=== PATIENT | female | born 1950 | race Caucasian/White ===

== ENCOUNTER 2017-10-25 11:30 | Outpatient (RCR) | payer BC, SELFPAY | END 2017-10-27 23:59 | LOC: NS 11:30 | PROVIDERS: Family Provider Physician Assistant; PCP Physician Assistant; Visit Provider Physician Assistant | DX: E11.69 Type 2 diabetes mellitus with other specified complication (principal); E66.9 Obesity, unspecified; Z68.42 Body mass index [BMI] 45.0-49.9, adult; Z71.3 Dietary counseling and surveillance | CPT/HCPCS: 97803 ==

== ENCOUNTER 2017-11-22 13:34 | Outpatient (RCR) | payer BC, SELFPAY | END 2017-11-24 23:59 | LOC: NS 13:34 | PROVIDERS: Family Provider Physician Assistant; PCP Physician Assistant; Visit Provider Physician Assistant | DX: E11.69 Type 2 diabetes mellitus with other specified complication (principal); E66.9 Obesity, unspecified; Z68.42 Body mass index [BMI] 45.0-49.9, adult; Z71.3 Dietary counseling and surveillance | CPT/HCPCS: 97803 ==

== ENCOUNTER 2017-12-20 12:00 | Outpatient (RCR) | payer BC, SELFPAY | END 2017-12-25 23:59 | LOC: NS 12:00 | PROVIDERS: Family Provider Physician Assistant; PCP Physician Assistant; Visit Provider Physician Assistant | DX: E11.69 Type 2 diabetes mellitus with other specified complication (principal); E66.9 Obesity, unspecified; Z68.42 Body mass index [BMI] 45.0-49.9, adult; Z71.3 Dietary counseling and surveillance | CPT/HCPCS: 97803 ==

== ENCOUNTER 2018-01-17 11:45 | Outpatient (RCR) | payer BC, SELFPAY | END 2018-01-24 23:59 | LOC: NS 11:45 | PROVIDERS: Family Provider Physician Assistant; PCP Physician Assistant; Visit Provider Physician Assistant | DX: E11.69 Type 2 diabetes mellitus with other specified complication (principal); E66.9 Obesity, unspecified; Z68.42 Body mass index [BMI] 45.0-49.9, adult; Z71.3 Dietary counseling and surveillance | CPT/HCPCS: 97803 ==

== ENCOUNTER 2018-01-31 11:51 | Outpatient (RCR) | payer BC, SELFPAY | END 2018-02-02 09:29 | disposition home or self-care (01) | LOC: NS 11:51 | PROVIDERS: Family Provider Physician Assistant; PCP Physician Assistant; Visit Provider Physician Assistant | DX: E11.69 Type 2 diabetes mellitus with other specified complication (principal); E66.9 Obesity, unspecified; Z68.42 Body mass index [BMI] 45.0-49.9, adult; Z71.3 Dietary counseling and surveillance ==

== ENCOUNTER 2018-02-14 11:50 | Outpatient (RCR) | payer BC, SELFPAY | END 2018-02-14 11:51 | LOC: NS 11:50 | PROVIDERS: Family Provider Physician Assistant; PCP Physician Assistant; Visit Provider Physician Assistant | DX: E11.69 Type 2 diabetes mellitus with other specified complication (principal); E66.9 Obesity, unspecified; Z68.42 Body mass index [BMI] 45.0-49.9, adult; Z71.3 Dietary counseling and surveillance | CPT/HCPCS: 97802 ==

== ENCOUNTER 2020-04-12 09:06 | Emergency (ER) | payer BC, MEDICARE, SELFPAY ==
[2020-04-12 09:07] VITALS: BP 194/75; PULSE 74; RESP 18; TEMP 35.9; O2SAT 96; BMI 46.9
--- NOTE | 2020-04-12 09:32 | CT_ITS ---
STUDY: CT ABDOMEN AND PELVIS WITHOUT CONTRAST REASON FOR EXAM: Female, 69 years old. LOW ABD PAIN/RT CALF SWELLING/INCREASING SOB. Hx of CABG, Afib, HTN, HLD and hypothyroid RADIATION DOSAGE (If Supplied By Facility): CTDIvol = ( 22.82 ) mGy, DLP = ( 1191.35 ) mGycm TECHNIQUE: Transaxial images were obtained from the dome of the diaphragm to the symphysis pubis without oral contrast, and without intravenous contrast. Sagittal and coronal images were reconstructed. Individualized dose optimization techniques were used for this CT. COMPARISON: None. FINDINGS: There is a 1.1 some minimal left in the medial aspect of the right lower lobe. Minimal scarring in the lingular segment of the left upper. Coronary artery calcifications. Normal liver. The gallbladder is not visualized most likely secondary to prior cholecystectomy. Normal spleen. There is diffuse atrophy of the pancreas. Normal bilateral adrenal glands. Normal right kidney. Normal left kidney. There is a small hiatal hernia. Normal small intestine. Normal colon. The appendix is visualized and appears normal. There is diffuse atherosclerotic calcification of the abdominal aorta and major visceral branches, without a demonstrated aneurysm. Normal inferior vena cava. Normal retroperitoneum. Normal urinary bladder. There is a small umbilical hernia containing fat. There is a 6 cm x 1.9 cm soft tissue density in the subcutaneous fat in the right lateral anterior abdominal wall. This may represent either subcutaneous edema from injury or possible subcutaneous injection of medication. There are diffuse degenerative changes of the visualized lumbar spine. Dextroscoliosis. CT/Abdomen/Pelvis without Cont IMPRESSION: Findings suggestive of a prior cholecystectomy. Soft tissue density in the subcutaneous fat in the right lateral anterior abdominal wall as described. Electronically Signed: Ian Buchanan, at 10:49 EDT , Service support ,
--- NOTE | 2020-04-12 09:36 | EKG12_ITS ---
Test Reason : EDEMA Blood Pressure : / mmHG Vent. Rate : 070 BPM Atrial Rate : 070 BPM P-R Int : 190 ms QRS Dur : 080 ms QT Int : 434 ms P-R-T Axes : 065 001 082 degrees QTc Int : 468 ms Sinus rhythm with occasional Premature ventricular complexes Nonspecific ST abnormality Abnormal ECG Confirmed by RJ MARINELLI, BERYL ([id number]), editor index ANITA LOYD ([id number]) on 04/16/2020 9:18:58 AM Referred By: CONG Confirmed By:BERYL DE LA ROSA MD
[2020-04-12 09:41] LABS: Bacteria 0 SEEN /hpf (None Seen); Mucous, Urine 0 SEEN /hpf (<or=2+); Red Blood Cells-Urine 0 SEEN /hpf (0-5); Squamous Epithelial Cells - UA 0 SEEN /hpf (5-10)
[2020-04-12 09:43] LABS: Color, Urine Yellow (Yellow); Glucose, Dipstick 1000 mg/dl (Normal); Ketone-Dipstick 5 mg/dl (Negative); Leukocyte Esterase-Dipstick 500 /ul (Negative); Nitrite-Dipstick Negative (Negative); Occult Blood-Urine 250 /ul (Negative); Protein-Dipstick 100 mg/dl (Negative); Urine Bilirubin Dipstick Negative (Negative); Urine Clarity Sl. Cloudy (Clear); Urine Urobilinogen Normal (Normal); Urine pH 6.5 (5.0 - 8.0)
[2020-04-12] MEDS: Acetaminophen 500 MG Tablet 1000 MG PO (09:47)
[2020-04-12] MEDS: 0.9% Normal Saline 1,000 ML 125 ML IV (09:48)
[2020-04-12 09:57] LABS: Absolute Lymphocyte Count 0.75 X10^3/uL (0.83-4.51); Absolute Neutrophil Count 12.6 X10^3/uL (2.0-7.7); Basophil# 0.04 X10^3/uL; Basophil% 0.3 % (0-1); Eosinophil# 0.15 X10^3/uL; Hematocrit 30.9 % (37-47); Hemoglobin 9.7 g/dL (12.0-15.0); Lymphocyte # 0.75 X10^3/ul (4.0); Lymphocyte % 5.1 % (19-41); Mean Corp Hgb Conc 31.4 g/dL (32-36); Mean Corpuscular Hgb 27.8 pg (27.0-32.0); Mean Corpuscular Volume 88.5 fL (81-99); Mean Platelet Vol. 11.5 fl (6.2-12.0); Monocyte# 1.19 X10^3/uL; NRBC Flagged by Analyzer 0 % (0-5); Neutrophil # 12.55 X10^3/uL (2.7-7.7); Neutrophil % 84.9 % (47-70); POSITIVE MORPHOLOGY YES; Platelet Count 268 K/mm3 (150-450); RBC Distribution Width CV 13.6 % (11.6-14.6); Red Blood Count 3.49 M/mm3 (4.2-5.4); White Blood Count 14.8 K/mm3 (4.4-11.0)
[2020-04-12 09:58] LABS: Differential Indicated SCAN CRITERIA MET
--- NOTE | 2020-04-12 10:07 | ED.VISSUMM ---
- ER Visit Summary Date of Service: 04/12/20 Chief Complaint: Abdominal pain History of Present Illness: The patient is a 69 F who sees Maggi Moreno. Patient reports that she has lower abdominal pain that began 2 days ago. Is a dull, aching pain Zeta 10 or central 10 currently. Is worsened by nothing relieved by nothing. She has frequent urination that began yesterday. She is had chills, but denies fever. She has had nausea, but no vomiting or diarrhea. Her last bowel movement yesterday. No mild hematochezia. Patient reports that last week her right leg was swollen, but that is now resolved. She now has swelling of her right labia majora over the past 2 days and she reports that this is moderately painful. Physical Examination: Vitals: Stable. Afebrile. General: Well-nourished and well-developed. Head: Normocephalic atraumatic. Neck: Supple, no lymphadenopathy. No JVD. Nontender. Cardiovascular: Regular rate and rhythm. No murmurs. Respiratory: No respiratory distress. Clear to auscultation bilaterally. Abdominal: Soft, mild suprapubic tenderness to palpation, nondistended, normal bowel sounds. No guarding, rebound, or peritoneal signs. : External exam does show that she has moderate swelling of her right labia majora. There is erythema. However, there is no induration or fluctuance. There is no Bartholin's gland cyst. Back: Nontender. Extremities: Nontender, 2+ pitting edema lower extremities bilaterally. Skin: Normal color, no rash. Neurologic: Alert and oriented ?3. Cranial nerves II through XII are intact. Normal strength and sensation. Psych: Normal affect. Test Results: EKG is sinus at [address] changes and PVCs. CBC shows a white count of 14.8 with 85 segmented neutrophils and 5 lymphocytes. H&H is 9.7 and 30.9. Lactic acid is 1.9. Chem-7 shows a sodium 133, glucose 350, BUN 20, creatinine 1.35. LFTs show total bili 1.3. UA shows greater than 100 white blood cells, but no bacteria. Troponin is negative. Clinical Impression(s) from Imaging Studies Abdomen/Pelvis CT 04/12/20 09:32 IMPRESSION: Findings suggestive of a prior cholecystectomy. Soft tissue density in the subcutaneous fat in the right lateral anterior abdominal wall as described. Electronically Signed: Ian Buchanan, at 10:49 EDT , Service support , Emergency Department Course and Treatment: Patient had an IV placed. She was given Tylenol p.o. and is resting comfortably. Patient's urine was sent for culture. She is given a dose of Rocephin IV. She was discussed with Dr. Arzate regarding the swelling of the right labia majora. Is felt that this could be cellulitic or potentially yeast and she was given Diflucan p.o. Following return of the CAT scan I did look for this area of swelling right upper abdomen and there is no erythema or warmth. Is nontender. The patient is on insulin and Xarelto. I suspect that this is an injection site that shown up on the CT. The patient feels well and would like to go home. Treatment Plan: Patient will be discharged on Keflex and Diflucan. She is instructed take the Diflucan every 3 days. Follow-up with her primary care physician in 3 to 5 days for another exam. Follow-up with Dr. Arzate in 1 week for another exam. Return to the emergency department for any worsening symptoms. Disposition: To home in improved and stable condition. Impression: 1. UTI. 2. Right labia majora swelling. This note was generated with [employer] dictation software. It may contain incorrect words, spelling, and punctuation that were not noted in review of the chart prior to signing ED Disposition - Plan for ED Patient: Instructions: ED WILMER VAGINITIS, Understanding Urinary Tract Infections (UTIs) Prescriptions: Fluconazole [Diflucan] 150 mg PO UD #3 tablet Cephalexin [Keflex] 500 mg PO Q12 #14 capsule Referrals: Maggi Chicas DO [Primary Care Provider] - 3-5 Days Remington Arzate MD [STAFF PHYSICIAN] - 1-2 Weeks
[2020-04-12 10:15] LABS: White Blood Cells >100 SEEN /hpf (0-5)
[2020-04-12 10:19] LABS: ALB/GLOB Ratio 0.8 RATIO (0.9-2.4); AST(SGOT) 17 U/L (15-37); Alanine Aminotransfer ALT/SGPT 17 U/L (13-56); Albumin, Serum 3.3 g/dL (3.2-5.0); Alkaline Phosphatase 61 U/L (45-117); Anion Gap 10 (5-15); BUN 20 mg/dL (7-18); BUN/Creat Ratio 14.8 RATIO (10-20); Calcium,Total 8.7 mg/dL (8.5-10.1); Chloride 102 mmol/L (98-107); Creatinine, Serum 1.35 mg/dL (0.55-1.02); EST Glomerular Filtration Rate 41 mL/min (>60); Est Glom Filt Rate - Afr Amer 50 mL/min (>60); Glucose 350 mg/dL (74-106); Potassium 3.9 mmol/L (3.5-5.1); Protein, Total 7.3 g/dL (6.4-8.2); Sodium Level 133 mmol/L (136-145)
[2020-04-12 10:21] LABS: Lactic Acid 1.9 mmol/L (0.4-1.9)
[2020-04-12 10:24] LABS: Hypochromasia 1+; Platelet Estimate ADEQUATE (ADEQ)
[2020-04-12 10:25] LABS: Differential Comment SCANNED
[2020-04-12 10:51] LABS: BNP,B-Type NATRIURETIC PEPTIDE 543.7 pg/mL (0-100)
[2020-04-12] MEDS: Ceftriaxone 1 GM/50 ML BAG IV (10:57)
[2020-04-12] MEDS: Fluconazole 100 MG Tablet 150 MG PO (11:51)
[2020-04-12 11:57] VITALS: BP 138/60; PULSE 63; RESP 16; O2SAT 97
== END 2020-04-12 11:57 | disposition home or self-care (01) ==
PROVIDERS: Emergency Provider Emergency Medicine
DX: N39.0 Urinary tract infection, site not specified (principal); M79.89 Other specified soft tissue disorders; E03.9 Hypothyroidism, unspecified; E78.5 Hyperlipidemia, unspecified; I10 Essential (primary) hypertension; I48.91 Unspecified atrial fibrillation; Z95.1 Presence of aortocoronary bypass graft; Z90.49 Acquired absence of other specified parts of digestive tract
CPT/HCPCS: 74176; 80053; 81001; 83605; 83880; 84484; 85025; 87040; 87086; 87088; 87186; 93005; 99283; J7030; A4216

== ENCOUNTER 2020-04-17 20:11 | Emergency (ER) | payer BC, MEDICARE, SELFPAY ==
[2020-04-17 20:12] VITALS: BP 128/61; PULSE 68; RESP 16; TEMP 36.6; O2SAT 96; BMI 45.0
--- NOTE | 2020-04-17 20:49 | CT_ITS ---
We are attempting to reach an attending provider to discuss findings. An addendum with communication details will be sent when the communication is complete. STUDY: CT ABDOMEN AND PELVIS WITH CONTRAST REASON FOR EXAM: Female, 69 years old. Pelvic pain RADIATION DOSAGE (If Supplied By Facility): CTDIvol = ( 18.67 ) mGy, DLP = ( 1730.50 ) mGycm TECHNIQUE: Transaxial images were obtained from the dome of the diaphragm to the symphysis pubis without oral contrast. 100 ml of Isovue-300 contrast was administered. Sagittal and coronal images were reconstructed. Individualized dose optimization techniques were used for this CT. COMPARISON: 04/12/2020 FINDINGS: The visualized lung bases are clear. The visualized portions of the heart and pericardium are within normal limits. There are no calcified gallstones present. The liver is low in density, consistent with fatty infiltration. The spleen is normal in size. The pancreas is within normal limits. The adrenal glands are within normal limits. There are no renal or ureteral stones. There is no hydronephrosis. There are no focal renal lesions. Normal visualized stomach. There is no bowel obstruction or inflammation. The appendix is visualized and appears normal. The aorta is normal in caliber. Again noted are atherosclerotic calcifications in the aorta. There is no abdominal or pelvic free air, free fluid, fluid collection or lymphadenopathy. There are no destructive osseous lesions. There is a stable 6 x 2 cm soft tissue density in the subcutaneous fat of the right lower quadrant anterior abdominal wall which may represent a subcutaneous hematoma. There is new fat stranding in the lower anterior abdominal wall extending to the mons pubis. This is consistent with cellulitis. There are small foci of air within the soft tissues of the perineum and right upper inner thigh, worrisome for fasciitis. CT/Abdomen/Pelvis W IV Cont ONLY IMPRESSION: Stable 6 x 2 cm soft tissue density in the subcutaneous fat of the right lower quadrant anterior abdominal wall which may represent a subcutaneous hematoma. New fat stranding in the lower anterior abdominal wall extending to the mons pubis, consistent with cellulitis. Small foci of air within the soft tissues of the perineum and right upper inner thigh, worrisome for fasciitis. No bowel obstruction or inflammation. Normal appendix. Normal kidneys. No hydronephrosis. Fatty liver. Electronically Signed: Tayo Lopes, at 21:58 EDT Tel , Service support ,
[2020-04-17] MEDS: Ondansetron 4 MG/2 ML Vial IM (20:52)
[2020-04-17] MEDS: Morphine 4 MG/ML Syringe IV (20:52)
--- NOTE | 2020-04-17 20:53 | ED.VIS.GEN ---
History of Present Illness Chief Complaint: Complaint Narrative: 69-year-old female presenting with painful swelling of her labia and her lower stomach. She states she was seen recently diagnosed with UTI as well as yeast infection. She has been taking her medications but it has not gotten better. She has swelling of her bilateral labia as well as swelling of the lower abdominal wall it is erythematous and warm. She is tender to touch. She states it is exquisitely painful. Does also state that her blood sugars have been running high for a while. She states that used to be under control but she has not been checking recently. Because she is out of equipment. Past Medical History - Allergies and Home Meds Allergies/Adverse Reactions: Allergies hydralazine HCl [From Apresoline] Allergy (Verified 04/17/20 20:15) Other numbness to face Primary Care Physician: Maggi Chicas DO [Primary Care Provider] - Prior records reviewed: Yes Surgical History: cholecystectomy, coronary bypass surgery, hysterectomy, - Lives: Alone Smoking Status: Current every day smoker Alcohol: None Drugs: None - Family History Maternal Family History: Reports: Diabetes, Heart Disease Paternal Family History: Reports: Heart Disease Sibling Family History: Reports: Diabetes Review of Systems General: Denies: Chills, Fever Eyes: Denies: Visual changes - bilaterally, Diplopia ENT: Denies: Rhinorrhea, Sore throat Cardiovascular: Denies: Chest pain, Palpitations Respiratory: Denies: Dyspnea, Cough, Dyspnea on exertion Gastrointestinal: Reports: Abdominal pain Genitourinary: Reports: Dysuria, - - Swelling of the labia bilaterally as well as swelling of the external pelvic area. Skin: Reports: Rash - In the pelvic area as well as the labia Neurological: Reports: Headache Hematologic: Denies: Easy bruising, Easy bleeding Physical Exam Vital Signs/Narrative: Vital Signs Temp Pulse Resp BP Pulse Ox 04/17/20 20:12 97.9 F 68 16 128/61 H 96 General: Obese, - - Tearful Head: Normocephalic, Atraumatic Eyes: Perrl ENT: Moist mucous membranes Cardiovascular: Regular rate, Regular rhythm Respiratory: No distress, CTA bilaterally Abdomen: - - Tenderness to palpation around the pelvic region as well as the bilateral labia. There is erythema surrounding this area. : - - Severe swelling and tenderness to palpation around the pelvic region as well as the bilateral labia. There is erythema warmth surrounding this area. There is no crepitance palpated. Extremities: Nontender Skin: No rash - As described above Neurological: Alert, Oriented x3 Psychological: Normal affect Diagnostic/Tx/Re-eval Clinical Impression(s) from Imaging Studies Abdomen/Pelvis CT 04/17/20 20:49 IMPRESSION: Stable 6 x 2 cm soft tissue density in the subcutaneous fat of the right lower quadrant anterior abdominal wall which may represent a subcutaneous hematoma. New fat stranding in the lower anterior abdominal wall extending to the mons pubis, consistent with cellulitis. Small foci of air within the soft tissues of the perineum and right upper inner thigh, worrisome for fasciitis. No bowel obstruction or inflammation. Normal appendix. Normal kidneys. No hydronephrosis. Fatty liver. Electronically Signed: Tayo Lpoes, at 21:58 EDT Tel , Service support , ADDENDUM: 04/17/208 IMPRESSION: Stable 6 x 2 cm soft tissue density in the subcutaneous fat of the right lower quadrant anterior abdominal wall which may represent a subcutaneous hematoma. New fat stranding in the lower anterior abdominal wall extending to the mons pubis, consistent with cellulitis. Small foci of air within the soft tissues of the perineum and right upper inner thigh, worrisome for fasciitis. No bowel obstruction or inflammation. Normal appendix. Normal kidneys. No hydronephrosis. Fatty liver. N.B. : The above information has been verbally conveyed by Tayo Lopes to Vernon Saha DO on 04/17/2020 22:21:13 (ET). Electronically Signed: Tayo Lopes, at 21:58 EDT Tel , Service support , Laboratory Data 04/17/20 04/17/20 04/17/20 20:59 21:00 21:00 WBC 27.5 H RBC 3.55 L Hgb 9.7 L Hct 31.0 L MCV 87.3 MCH 27.3 MCHC 31.3 L RDW Std Deviation 46.6 H RDW Coeff of Kevyn 14.5 Plt Count 420 MPV 11.8 Immature Gran % (Auto) 2.200 H Neut % (Auto) 91.3 H Lymph % (Auto) 3.1 L [place] % (Auto) 2.9 Eos % (Auto) 0.3 Baso % (Auto) 0.2 Absolute Neuts (auto) 25.1 H Absolute Lymphs (auto) 0.84 Nucleated RBC % 0 Differential Comment Platelet Estimate ADEQUATE RBC Morphology NORM C+C PT INR Sodium 121 L Potassium 3.8 Chloride 85 L Carbon Dioxide 25.0 Anion Gap 11 BUN 43 H Creatinine 2.52 H Estim Creat Clear Calc 22.02 Est GFR (MDRD) Af Amer 24 L Est GFR (MDRD) Non-Af 20 L BUN/Creatinine Ratio 17.1 Glucose 695 H* Lactic Acid Calcium 8.3 L Urine Color Urine Clarity Urine pH Ur Specific [place] Urine Protein Urine Glucose (UA) Urine Ketones Urine Occult Blood Urine Nitrite Urine Bilirubin Urine Urobilinogen Ur Leukocyte Esterase Urine RBC Urine WBC Ur Squamous Epith Cells Urine Bacteria Urine Mucus POC Glucose > 500 H* 04/17/20 04/17/20 04/17/20 21:12 21:17 21:45 WBC RBC Hgb Hct MCV MCH MCHC RDW Std Deviation RDW Coeff of Kevyn Plt Count MPV Immature Gran % (Auto) Neut % (Auto) Lymph % (Auto) [place] % (Auto) Eos % (Auto) Baso % (Auto) Absolute Neuts (auto) Absolute Lymphs (auto) Nucleated RBC % Differential Comment Platelet Estimate RBC Morphology PT 18.3 H INR 1.6 Sodium Potassium Chloride Carbon Dioxide Anion Gap BUN Creatinine Estim Creat Clear Calc Est GFR (MDRD) Af Amer Est GFR (MDRD) Non-Af BUN/Creatinine Ratio Glucose Lactic Acid 2.5 H* Calcium Urine Color Yellow Urine Clarity Clear Urine pH 5.0 Ur Specific [place] 1.010 Urine Protein Negative Urine Glucose (UA) 1000 H Urine Ketones Negative Urine Occult Blood Negative Urine Nitrite Negative Urine Bilirubin Negative Urine Urobilinogen Normal Ur Leukocyte Esterase Negative Urine RBC 0 SEEN Urine WBC 0 SEEN Ur Squamous Epith Cells 0 SEEN Urine Bacteria 0 SEEN Urine Mucus 0 SEEN POC Glucose 04/17/20 04/18/20 23:16 00:01 WBC RBC Hgb Hct MCV MCH MCHC RDW Std Deviation RDW Coeff of Kevyn Plt Count MPV Immature Gran % (Auto) Neut % (Auto) Lymph % (Auto) [place] % (Auto) Eos % (Auto) Baso % (Auto) Absolute Neuts (auto) Absolute Lymphs (auto) Nucleated RBC % Differential Comment Platelet Estimate RBC Morphology PT INR Sodium Potassium Chloride Carbon Dioxide Anion Gap BUN Creatinine Estim Creat Clear Calc Est GFR (MDRD) Af Amer Est GFR (MDRD) Non-Af BUN/Creatinine Ratio Glucose Lactic Acid Calcium Urine Color Urine Clarity Urine pH Ur Specific [place] Urine Protein Urine Glucose (UA) Urine Ketones Urine Occult Blood Urine Nitrite Urine Bilirubin Urine Urobilinogen Ur Leukocyte Esterase Urine RBC Urine WBC Ur Squamous Epith Cells Urine Bacteria Urine Mucus POC Glucose > 500 H* 500 H* - Medical Decision Making Was seen and evaluated on arrival for severe pain and swelling and infection of the genital region. She is an insulin-dependent diabetic. She states this is worsened since her previous visit and she is having trouble even moving due to the pain and swelling. She has been taking her antibiotics without improvement. 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 She was taken immediately to CT and I did review her previous blood work and her GFR was sufficient however after she had her CT today her new GFR was lower. I did give her IV fluids, given the emergent nature of the need for CT I feel this is outweighs the concern for contrast-induced nephropathy. Patient's lab work shows a leukocytosis of 27,000, lactic acid of 2.5. Creatinine was also 2.[address] results show concern for Selwyn's gangrene/necrotizing fasciitis. She had already been given vancomycin, Zosyn, Cleocin. She has been cultured. She was given 2.5 L of IV fluids. Her heart rate and blood pressure remained stable. She is afebrile. After receiving the CT results I did discuss this with [facility] where she wanted to go. I initially spoke to the resident who called back and stated that they would accept her after the COVID swab is performed and test is back and negative. I also did speak to the ICU attending who was concerned that going to a regular ICU not a surgical ICU. At that point he stated that he would make arrangements for the surgical ICU. Patient was eventually accepted but is pending transfer once her COVID swab test is resulted. She did have hyperglycemia and was started on a insulin drip in the ED to help control her blood sugars. She has slowly come down from 650-500. I do not believe that time she needs pressors. Will be immediately transferred to [facility] as soon as her COVID follow-up results. Impression: #1 Selwyn's gangrene #2 Severe sepsis #3 leukocytosis #4 Acute kidney injury #5 Hyperglycemia #6 Lactic acidosis - Critical Care Time Critical care time (excluding procedures): 75-104 minutes, Discussing w/Patient &/or Family/Driver Merchandiser, Discussing w/Consultants, Arranging Admission or Transfer, Performing Direct Patient Care at Bedside - Managing insulin drip. ED Disposition - Plan for ED Patient: Referrals: Maggi Chicas DO [Primary Care Provider] -
[2020-04-17] MEDS: 0.9% Normal Saline 1,000 ML 1000 ML IV (21:01)
[2020-04-17 21:02] VITALS: BP 121/66; PULSE 104; RESP 18; TEMP 37.1; O2SAT 95
[2020-04-17 21:06] LABS: Bedside Glucose > 500 mg/dL (70-110)
[2020-04-17 21:07] LABS: Absolute Lymphocyte Count 0.84 X10^3/uL (0.83-4.51); Absolute Neutrophil Count 25.1 X10^3/uL (2.0-7.7); Basophil# 0.05 X10^3/uL; Basophil% 0.2 % (0-1); Eosinophil# 0.07 X10^3/uL; Eosinophils% 0.3 % (0-5); Hemoglobin 9.7 g/dL (12.0-15.0); Lymphocyte # 0.84 X10^3/ul (4.0); Lymphocyte % 3.1 % (19-41); Mean Corp Hgb Conc 31.3 g/dL (32-36); Mean Corpuscular Hgb 27.3 pg (27.0-32.0); Mean Corpuscular Volume 87.3 fL (81-99); Mean Platelet Vol. 11.8 fl (6.2-12.0); Monocyte% 2.9 % (0-10); NRBC Flagged by Analyzer 0 % (0-5); Neutrophil # 25.11 X10^3/uL (2.7-7.7); Neutrophil % 91.3 % (47-70); POSITIVE DIFFERENTIAL YES; POSITIVE MORPHOLOGY YES; Platelet Count 420 K/mm3 (150-450); RBC Distribution Width CV 14.5 % (11.6-14.6); RBC Distribution Width SD 46.6 fl (35.1-43.9); Red Blood Count 3.55 M/mm3 (4.2-5.4); White Blood Count 27.5 K/mm3 (4.4-11.0)
[2020-04-17 21:30] LABS: Differential Indicated SCAN CRITERIA MET; Platelet Estimate ADEQUATE (ADEQ); Red Cell Morphology NORM C+C NORMAL (NORM C&C)
[2020-04-17 21:31] LABS: Anion Gap 11 (5-15); BUN 43 mg/dL (7-18); BUN/Creat Ratio 17.1 RATIO (10-20); Calcium,Total 8.3 mg/dL (8.5-10.1); Chloride 85 mmol/L (98-107); Creatinine, Serum 2.52 mg/dL (0.55-1.02); EST Glomerular Filtration Rate 20 mL/min (>60); Est Glom Filt Rate - Afr Amer 24 mL/min (>60); Estimated Creatinine Clearance 22.02 ml/min; Glucose 695 mg/dL (74-106); Potassium 3.8 mmol/L (3.5-5.1); Sodium Level 121 mmol/L (136-145)
--- NOTE | 2020-04-17 21:31 | ED.RN ---
BGL [address] FLORES[address] ACKNOWLEDGES RESULT
[2020-04-17 21:53] LABS: International Normalized Ratio 1.6; Prothrombin Time (Protime)PT. 18.3 SECONDS (11.7-14.9)
[2020-04-17 21:56] LABS: Bacteria 0 SEEN /hpf (None Seen); Mucous, Urine 0 SEEN /hpf (<or=2+); Red Blood Cells-Urine 0 SEEN /hpf (0-5); Squamous Epithelial Cells - UA 0 SEEN /hpf (5-10); White Blood Cells 0 SEEN /hpf (0-5)
[2020-04-17 22:02] LABS: Color, Urine Yellow (Yellow); Glucose, Dipstick 1000 mg/dl (Normal); Ketone-Dipstick Negative (Negative); Leukocyte Esterase-Dipstick Negative /ul (Negative); Nitrite-Dipstick Negative (Negative); Occult Blood-Urine Negative /ul (Negative); Protein-Dipstick Negative (Negative); Urine Bilirubin Dipstick Negative (Negative); Urine Clarity Clear (Clear); Urine Urobilinogen Normal (Normal)
[2020-04-17 22:08] VITALS: BP 120/57; PULSE 98; RESP 18; TEMP 37.1; O2SAT 98
--- NOTE | 2020-04-17 22:08 | ED.RN ---
LACTIC 2.5 REPORTED TO . VERBALIZES UNDERSTANDING
[2020-04-17 22:09] LABS: Lactic Acid 2.5 mmol/L (0.4-1.9)
[2020-04-17 23:08] VITALS: BP 113/60; PULSE 92; RESP 18; TEMP 37.1; O2SAT 98
[2020-04-17 23:25] LABS: Bedside Glucose > 500 mg/dL (70-110)
[2020-04-18 00:01] VITALS: BP 114/52; PULSE 81; RESP 16; TEMP 36.9; O2SAT 97
[2020-04-18 00:06] LABS: Bedside Glucose 500 mg/dL (70-110)
[2020-04-18 01:00] VITALS: BP 99/59; PULSE 97; RESP 14; TEMP 36.9; O2SAT 98
[2020-04-18 01:21] LABS: Bedside Glucose 427 mg/dL (70-110)
[2020-04-18 01:22] LABS: Reflex Lactate? Y
[2020-04-18 02:00] VITALS: BP 114/64; PULSE 92; RESP 16; TEMP 36.6; O2SAT 96
[2020-04-18 02:16] LABS: Bedside Glucose 373 mg/dL (70-110)
[2020-04-18 02:29] LABS: Lactic Acid 2.5 mmol/L (0.4-1.9)
== END 2020-04-18 02:43 | disposition short-term general hospital (02) ==
PROVIDERS: Emergency Provider Student in an Organized Health Care Education/Training Program
DX: A41.9 Sepsis, unspecified organism (principal); N76.89 Other specified inflammation of vagina and vulva; N39.0 Urinary tract infection, site not specified; R65.20 Severe sepsis without septic shock; N17.9 Acute kidney failure, unspecified; E87.2 Acidosis; E11.65 Type 2 diabetes mellitus with hyperglycemia; Z79.4 Long term (current) use of insulin; Z82.49 Family history of ischemic heart disease and other diseases of the circulatory system; Z90.49 Acquired absence of other specified parts of digestive tract; Z90.710 Acquired absence of both cervix and uterus; K76.0 Fatty (change of) liver, not elsewhere classified; F17.200 Nicotine dependence, unspecified, uncomplicated; E66.9 Obesity, unspecified
CPT/HCPCS: 51702; 74177; 80048; 81001; 82962; 83605; 85025; 85610; 87040; 87086; 87635; 96361; 96365; 96366; 96367; 96372; 96375; 99285; G2023; J7030; J7040; Q9967; A4216; J2405; U0003

== ENCOUNTER → 2020-11-05 15:43 | Outpatient (CLI) | payer MEDICARE, SELFPAY | PROVIDERS: Referring Provider Nurse Practitioner Adult Health; Visit Provider Nurse Practitioner Adult Health | DX: N30.21 Other chronic cystitis with hematuria (principal) | CPT/HCPCS: 87077; 87086; 87088; 87186 ==

== ENCOUNTER → 2021-02-25 13:59 | Outpatient (CLI) | payer MEDICARE, SELFPAY ==
--- NOTE | 2021-02-25 09:21 | EKG12_ITS ---
Test Reason : PRE-OP Blood Pressure : / mmHG Vent. Rate : 052 BPM Atrial Rate : 056 BPM P-R Int : 000 ms QRS Dur : 092 ms QT Int : 480 ms P-R-T Axes : 000 -12 074 degrees QTc Int : 446 ms Junctional rhythm Poor R wave progression Abnormal ECG Confirmed by HUE MARINELLI, AL ([id number]), purchase request editor ANITA LOYD ([id number]) on 02/26/2021 1:04:48 PM Referred By: Rajiv Izquierdo Confirmed By:AL SWANN MD
[2021-02-25 10:45] LABS: Absolute Lymphocyte Count 0.59 X10^3/uL (0.83-4.51); Absolute Neutrophil Count 2.3 X10^3/uL (2.0-7.7); Basophil# 0.05 X10^3/uL; Basophil% 1.4 % (0-1); Eosinophils% 5.6 % (0-5); Hematocrit 31.7 % (37-47); Hemoglobin 9.4 g/dL (12.0-15.0); Lymphocyte # 0.59 X10^3/ul (0.83-4.51); Lymphocyte % 16.6 % (19-41); Mean Corp Hgb Conc 29.7 g/dL (32-36); Mean Corpuscular Hgb 27.6 pg (27.0-32.0); Mean Platelet Vol. 11.5 fl (6.2-12.0); Monocyte# 0.37 X10^3/uL; Monocyte% 10.4 % (0-10); NRBC Flagged by Analyzer 0 % (0-5); Neutrophil # 2.33 X10^3/uL (2.7-7.7); Neutrophil % 65.7 % (47-70); POSITIVE DIFFERENTIAL YES; Platelet Count 216 K/mm3 (150-450); RBC Distribution Width CV 15.7 % (11.6-14.6); RBC Distribution Width SD 53.3 fl (35.1-43.9); Red Blood Count 3.41 M/mm3 (4.2-5.4); White Blood Count 3.6 K/mm3 (4.4-11.0)
[2021-02-25 10:47] LABS: Differential Indicated SCAN CRITERIA MET
[2021-02-25 11:17] LABS: Anion Gap 7 (5-15); BUN 38 mg/dL (7-18); BUN/Creat Ratio 31.4 RATIO (10-20); Calcium,Total 9.1 mg/dL (8.5-10.1); Chloride 108 mmol/L (98-107); Creatinine, Serum 1.21 mg/dL (0.55-1.02); EST Glomerular Filtration Rate 47 mL/min (>60); Est Glom Filt Rate - Afr Amer 57 mL/min (>60); Glucose 142 mg/dL (74-106); Potassium 4.2 mmol/L (3.5-5.1); Sodium Level 139 mmol/L (136-145)
[2021-02-25 11:24] LABS: Magnesium 2.2 mg/dL (1.6-2.6); Thyroid Stim Hormone (TSH) 0.66 uIU/mL (0.358-3.74)
[2021-02-25 11:28] LABS: Hemoglobin A1c 6.2 % (3.8-5.6)
[2021-02-26 13:38] LABS: Pathologist Review Reviewed
== END ==
PROVIDERS: Anesthesiology; Referring Provider Orthopaedic Surgery; Visit Provider Orthopaedic Surgery
DX: Z01.818 Encounter for other preprocedural examination (principal); R94.31 Abnormal electrocardiogram [ECG] [EKG]; Z79.899 Other long term (current) drug therapy
CPT/HCPCS: 36415; 80048; 83036; 83735; 84443; 85025; 87077; 87081; 93005

== ENCOUNTER → 2021-04-28 10:00 | Outpatient (CLI) | payer MEDICARE, SELFPAY | PROVIDERS: Referring Provider Orthopaedic Surgery; Visit Provider Orthopaedic Surgery | DX: Z11.59 Encounter for screening for other viral diseases (principal) | CPT/HCPCS: 87426; C9803 ==

== ENCOUNTER 2021-05-07 14:40 | Inpatient (IN) | payer MEDICARE, SELFPAY ==
[2021-05-07 15:07] VITALS: BP 117/44; PULSE 57; RESP 18; TEMP 36.4; O2SAT 94; BMI 113.2
[2021-05-07 16:00] VITALS: BP 117/44; PULSE 57; RESP 18; TEMP 36.4; O2SAT 94
[2021-05-07] MEDS: Cephalexin 500 MG Capsule PO (17:16)
[2021-05-07] MEDS: Senna/Docusate Sodium 1 Tablet PO (17:17)
[2021-05-07] MEDS: Sotalol Hydrochloride 80 MG Tablet 120 MG PO (17:17)
[2021-05-07] MEDS: oxyCODONE 5 MG Tablet PO ×2 (17:18→23:21)
[2021-05-07 17:21] LABS: Bedside Glucose 115 mg/dL (70-110)
--- NOTE | 2021-05-07 21:19 | HP.PCM_ITS ---
HPI - General General Date of Admission: 05/07/21 HPI Narrative 04/30/2021 MADAN CARRION, is a 70 Female who presents to [facility] for admission. 04/30/2021 Dr. Ram performed left total hip replacement. Postoperative course unknown due to incomplete paperwork. 05/07/2021 Admit to TCU with debility, here for rehabilitation, strengthening, prior to discharge home alone. [facility] Medical History (Updated 05/07/21 @ 21:[address] Alen Vargas MD) Abrasion Anxiety Arthritis Cardiology follow-up encounter Cataract (lens) fragments in eye following cataract surgery, left eye Cataract (lens) fragments in eye following cataract surgery, right eye CPAP (continuous positive airway pressure) dependence Depression Dietary restriction DVT (deep venous thrombosis) History of atrial fibrillation History of edema History of pain when walking History of stress incontinence History of stress test Hx of echocardiogram Hx of necrotizing fasciitis Hypertension Insulin dependent diabetes mellitus Non-smoker Restless legs Shortness of breath on exertion Thyroid disease Walker as ambulation aid Wears dentures Home Medications aspirin 81 mg PO DAILY@0800 09/07/14 [History Last Taken Unknown] atorvastatin 40 mg PO QHS 09/07/14 [History Last Taken Unknown] fenofibric acid (choline) [Trilipix] 135 mg PO DAILY 09/07/14 [History Last Taken Unknown] sotalol [Betapace] 120 mg PO BID 09/07/14 [History Last Taken Unknown] levothyroxine 200 mcg PO DAILY 04/12/20 [History Last Taken Unknown] rivaroxaban 15 mg PO DAILY 04/12/20 [History Last Taken Unknown] ascorbic acid (vitamin C) [Vitamin C] 1 cap PO DAILY 02/17/21 [History Last Taken Unknown] bumetanide 0.5 mg PO DAILY 02/17/21 [History Last Taken Unknown] insulin glargine U-300 conc [Toujeo SoloStar U-300 Insulin] 60 unit SUBCUT QHS 02/17/21 [History Last Taken Unknown] insulin lispro 30 unit SUBCUT BREAKFAST 02/17/21 [History Last Taken Unknown] insulin lispro 30 unit SUBCUT QHS 02/17/21 [History Last Taken Unknown] insulin lispro 35 unit SUBCUT DINNER 02/17/21 [History Last Taken Unknown] methenamine hippurate 1 g PO QHS 02/17/21 [History Last Taken Unknown] celecoxib [Celebrex] 200 mg PO DAILY 05/07/21 [History Last Taken Unknown] cephalexin [Keflex] 500 mg PO Q8H 05/07/21 [History Last Taken Unknown] hydromorphone [Dilaudid] 2 mg PO Q4H PRN 05/07/21 [History Last Taken Unknown] ondansetron HCl [Zofran] 4 mg PO Q8H PRN 05/07/21 [History Last Taken Unknown] oxycodone 5 mg PO Q4H PRN 05/07/21 [History Last Taken Unknown] sennosides-docusate sodium [Senna with Docusate Sodium] 1 tab PO BID 05/07/21 [History Last Taken Unknown] tramadol 50 mg PO Q6H PRN 05/07/21 [History Last Taken Unknown] Allergy/AdvReac Type Severity Reaction Status Date / Time hydralazine HCl Allergy Other Verified 02/17/21 09:07 [From Apresoline] Surgical History (Updated 05/07/21 @ 21:[address] Alen Vargas MD) History of cardiac catheterization History of cardiac radiofrequency ablation History of quadruple bypass History of total left hip replacement Hx of cholecystectomy Hx of colonoscopy Hx of tubal ligation Social History (Updated 05/07/21 @ 15:20 by Sarika Daniel) household members: none housing: house number of children: 3 Smoking Status: Never smoker ROS Constitutional Constitutional: Denies chills, fever(s) or weight gain ENT HEENT: Denies headache(s), nasal congestion or nasal discharge Cardiovascular Cardiovascular: Denies chest pain or palpitations Respiratory/Chest Respiratory/Chest: Denies cough, excessive phlegm production or shortness of breath with exertion Gastrointestinal Gastrointestinal: Denies abdominal pain, nausea or vomiting Genitourinary Genitourinary: Denies dysuria Musculoskeletal Musculoskeletal: Denies joint pain or joint swelling Integumentary Integumentary: Denies rash or wounds Neurologic Neurologic: Denies focal weakness, numbness or tingling Psychiatric Psychiatric: Reports auditory hallucinations; Denies anxiety, depression, homicidal ideation or suicidal ideation Vital Signs Vital Signs Vital Signs: 05/07/21 15:07 05/07/21 15:24 05/07/21 16:00 Temperature 97.6 F L 97.6 F L Temperature Source Temporal Oral Pulse Rate 57 L 57 L Pulse Rhythm Regular Pulse Strength Normal (2+) Respiratory Rate 18 18 Respiratory Effort Normal Non-Labored Respiratory Depth Normal Respiratory Pattern Normal Blood Pressure 117/44 L 117/44 L Blood Pressure Mean 68 68 Blood Pressure Source Monitor Monitor Blood Pressure Position Sitting Sitting Blood Pressure Location Right Forearm Right Forearm Pulse Ox 94 94 Oxygen Delivery Method Room Air Room Air Room Air Weight Weight: 148.58 kg Body Mass Index (BMI) 113.2 Physical Exam Const alert and oriented x3 General Appearance: cooperative HEENT normocephalic Eyes PERRL and EOMs intact bilaterally Neck supple, no JVD and no carotid bruits Resp normal respiratory effort, normal air movement and clear to auscultation bilaterally Cardio regular rate and regular rhythm GI normal to inspection, nondistended, normoactive bowel sounds, non-tender and non-distended Extremity normal capillary refill General Extremity: Negative for edema Skin no rashes or lesions noted General Skin Exam: no breakdown Psych affect normal Appearance: appropriate Results Lab / Micro Data Labs: Laboratory Results - last 24 hr 05/07/21 17:15: POC Glucose 115 H Assessment & Plan Assessment/Plan (1) Debility: (2) History of total left hip replacement: (3) Osteoarthritis of left hip: (4) Hypothyroidism: (5) Hyperlipidemia: (6) Diabetes mellitus: (7) Recurrent urinary tract infection: (8) Overactive bladder: (9) Gout: (10) Hypertension: (11) Atrial fibrillation: (12) Body mass index (BMI) greater than 50: (13) Coronary artery disease: PLAN: 70 year old female with below past medical history underwent left total hip replacement 04/30/[address] Ram at [facility], admitted to TCU with debility, here for rehabilitation, strengthening, prior to discharge home alone. * Debility - PT/OT. * Pain - Tylenol 1000MG Q6H PRN pain (1-5), Oxycodone 5MG Q4H PRN pain (6-10). * Bowel - Miralax 17GM daily, Senna/colace 2 tablets BID, Dulcolax 10MG daily PRN. * Adult immunization - Administer prevnar 13, pneumovax 23, fluzone, covid19 vaccine as appropriate. * DVT prophylaxis - Xarelto 15MG daily. * Recurrent UTI - Methenamine 1GM QHS, Vitamin C 1000MG daily. * Hyperlipidemia - Atorvastatin 40MG QHS, Tricor 145MG daily. * Edema - Bumex 0.5MG daily. * Osteoarthritis - Celebrex 200mg daily. * ID - Keflex 500Mg Q8H thru 05/08/2021. * Diabetes Mellitus II - Lantus 60 units QHS, Humalog 30 units AM, 30 units Lunch, 35 units dinnner. * Hypothyroidism - Levothyroxine 200MCG daily. * Nausea - Zofran 4MG Q8H PRN. * Atrial Fibrillation - Sotalol 120MG BID, Xarelto 15MG daily.
[2021-05-07 21:56] LABS: Bedside Glucose 213 mg/dL (70-110)
[2021-05-07] MEDS: Methenamine Hippurate 1 GM Tablet PO (23:18)
[2021-05-07] MEDS: Atorvastatin Calcium 40 MG Tablet PO (23:19)
[2021-05-08 05:26] VITALS: BP 116/51; PULSE 55; RESP 16; TEMP 36; O2SAT 94
[2021-05-08 05:43] LABS: Absolute Lymphocyte Count 0.58 X10^3/uL (0.83-4.51); Absolute Neutrophil Count 3.6 X10^3/uL (2.0-7.7); Basophil# 0.04 X10^3/uL; Basophil% 0.7 % (0-1); Eosinophil# 0.43 X10^3/uL; Eosinophils% 7.6 % (0-5); Hematocrit 22.4 % (37-47); Hemoglobin 6.6 g/dL (12.0-15.0); Lymphocyte # 0.58 X10^3/ul (0.83-4.51); Lymphocyte % 10.3 % (19-41); Mean Corp Hgb Conc 29.5 g/dL (32-36); Mean Corpuscular Hgb 28.1 pg (27.0-32.0); Mean Corpuscular Volume 95.3 fL (81-99); Mean Platelet Vol. 9.9 fl (6.2-12.0); Monocyte# 0.89 X10^3/uL; Monocyte% 15.8 % (0-10); NRBC Flagged by Analyzer 0 % (0-5); Neutrophil # 3.64 X10^3/uL (2.7-7.7); Neutrophil % 64.4 % (47-70); POSITIVE DIFFERENTIAL YES; Platelet Count 278 K/mm3 (150-450); RBC Distribution Width CV 16.4 % (11.6-14.6); RBC Distribution Width SD 56.1 fl (35.1-43.9); Red Blood Count 2.35 M/mm3 (4.2-5.4); White Blood Count 5.7 K/mm3 (4.4-11.0)
[2021-05-08] MEDS: Cephalexin 500 MG Capsule PO ×2 (05:57→08:41)
[2021-05-08] MEDS: Bumetanide 0.5 MG Tablet PO (05:58)
[2021-05-08] MEDS: Celecoxib 200 MG Capsule PO (05:58)
[2021-05-08] MEDS: Polyethylene Glycol 3350 17 GM PACKET PO (05:59)
[2021-05-08] MEDS: Senna/Docusate Sodium 1 Tablet 2 TABLET PO ×2 (05:59→18:33)
[2021-05-08] MEDS: Levothyroxine 100 MCG Tablet 200 MCG PO (06:00)
[2021-05-08] MEDS: Fenofibrate 145 MG Tablet PO (06:00)
[2021-05-08] MEDS: Ascorbic Acid 500 MG Tablet 1000 MG PO (06:00)
[2021-05-08] MEDS: Rivaroxaban 15 MG Tablet PO (06:01)
[2021-05-08] MEDS: oxyCODONE 5 MG Tablet PO ×2 (06:01→14:11)
[2021-05-08 06:04] VITALS: PULSE 60
[2021-05-08] MEDS: Sotalol Hydrochloride 80 MG Tablet 120 MG PO (06:04)
[2021-05-08 06:09] LABS: Differential Indicated SCAN CRITERIA MET
[2021-05-08 06:10] LABS: Anion Gap 8 (5-15); BUN 39 mg/dL (7-18); BUN/Creat Ratio 30.7 RATIO (10-20); Calcium,Total 8.2 mg/dL (8.5-10.1); Chloride 105 mmol/L (98-107); Creatinine, Serum 1.27 mg/dL (0.55-1.02); EST Glomerular Filtration Rate 44 mL/min (>60); Est Glom Filt Rate - Afr Amer 53 mL/min (>60); Estimated Creatinine Clearance 40.08 ml/min; Glucose 163 mg/dL (74-106); Potassium 4.3 mmol/L (3.5-5.1); Sodium Level 137 mmol/L (136-145)
[2021-05-08 06:31] LABS: Bedside Glucose 166 mg/dL (70-110)
[2021-05-08 06:44] LABS: Differential Comment SCANNED
[2021-05-08] MEDS: Insulin Lispro 100 UNIT/ML INSULN.PEN 30 UNIT SC (08:42)
[2021-05-08 10:51] LABS: Bedside Glucose 144 mg/dL (70-110)
--- NOTE | 2021-05-08 11:15 | NURSING ---
pt taken off the floor for blood admin. Hgb noted to be 6.6.
[2021-05-08] MEDS: Insulin Lispro 100 UNIT/ML INSULN.PEN 35 UNIT SC (18:29)
[2021-05-08] MEDS: Tuberculin,Purif.prot.deriv. 50 TU/ML Vial 0.1 ML ID (18:34)
[2021-05-08 18:38] VITALS: BP 124/55; PULSE 50; RESP 18; TEMP 36.6; O2SAT 99
[2021-05-08 18:41] LABS: Bedside Glucose 178 mg/dL (70-110)
[2021-05-08 21:35] VITALS: PULSE 50; RESP 18; O2SAT 97
[2021-05-08 21:45] LABS: Bedside Glucose 129 mg/dL (70-110)
[2021-05-08] MEDS: Methenamine Hippurate 1 GM Tablet PO (21:52)
[2021-05-08] MEDS: Atorvastatin Calcium 40 MG Tablet PO (21:53)
[2021-05-09 05:04] VITALS: BP 125/52; PULSE 51; RESP 16; TEMP 36.1; O2SAT 95
[2021-05-09] MEDS: Polyethylene Glycol 3350 17 GM PACKET PO (05:06)
[2021-05-09] MEDS: Fenofibrate 145 MG Tablet PO (05:08)
[2021-05-09] MEDS: Rivaroxaban 15 MG Tablet PO (05:08)
[2021-05-09] MEDS: Senna/Docusate Sodium 1 Tablet 2 TABLET PO ×2 (05:08→17:17)
[2021-05-09] MEDS: Celecoxib 200 MG Capsule PO (05:09)
[2021-05-09] MEDS: Bumetanide 0.5 MG Tablet PO (05:09)
[2021-05-09] MEDS: Levothyroxine 100 MCG Tablet 200 MCG PO (05:14)
[2021-05-09] MEDS: oxyCODONE 5 MG Tablet PO ×3 (05:14→22:47)
[2021-05-09 05:31] LABS: Bedside Glucose 116 mg/dL (70-110)
[2021-05-09] MEDS: Bisacodyl 5 MG Tablet 10 MG PO (05:58)
[2021-05-09] MEDS: Ondansetron ODT 4 MG Tablet PO (05:58)
[2021-05-09 06:01] LABS: Hematocrit 26.4 % (37-47); Hemoglobin 8.1 g/dL (12.0-15.0)
--- NOTE | 2021-05-09 09:08 | CASEMGMT ---
Social Work SW met w/pt for initial assessment, daughter Elias also present. SW discussed CODE status w/pt, pt confirms is a full code. MOLST form reviewed, communication to doctor, form placed in chart. SW explained initial review will go to insurance to indicate initial length of time authorized by insurance, and that if more time is needed can go back to insurance to request further time. SW did explain to pt and daughter that this is not guaranteed. Pt's goal is to return home w/home health care or possibly outpt PT if pt is able. SW will continue to follow. TSERING Gomez
[2021-05-09] MEDS: Insulin Lispro 100 UNIT/ML INSULN.PEN 30 UNIT SC ×2 (09:15→12:15)
[2021-05-09 11:06] LABS: Bedside Glucose 154 mg/dL (70-110)
[2021-05-09] MEDS: Ascorbic Acid 500 MG Tablet 1000 MG PO (11:15)
--- NOTE | 2021-05-09 12:14 | NURSING ---
Resident educated on the COVID 19 vaccine and does not want to receive it.
[2021-05-09] MEDS: 0.9% Saline Lock 10 ML Syringe IV (12:20)
[2021-05-09 14:22] VITALS: BP 136/62; PULSE 49; RESP 18; TEMP 36.1; O2SAT 98
[2021-05-09] MEDS: Acetaminophen 500 MG Tablet 1000 MG PO (14:24)
--- NOTE | 2021-05-09 14:32 | NURSING ---
ASSISTED R' TO WALK IN ROOM. WALKED TO DOORWAY AND BACK WITH SUPERVISION. NOW RESTING IN R/C. DENIES FURTHER NEEDS. RECENTLY MEDICATED WITH TYLENOL.
--- NOTE | 2021-05-09 15:27 | CASEMGMT ---
Social Work SW let pt know that the next review date with insurance is 05/16, and she may be discharged by 05/20. Pt states understanding. TSERING Gomez
--- NOTE | 2021-05-09 15:34 | PCM.PN.RX ---
Progress Note - Pharmacy Subjective: TCU Admission Objective: Allergies hydralazine HCl [From Apresoline] Allergy (Verified 02/17/21 09:07) Other numbness to face Current Medications Generic Name Dose Route Start Last Admin Trade Name Freq PRN Reason Stop Dose Admin Acetaminophen 1,000 mg 05/07/21 21:35 05/09/21 14:24 Acetaminophen 500 Mg Tablet PO 1,000 mg Q6H PRN PRN Administration Pain Score 1-5 Ascorbic Acid 1,000 mg 05/08/21 06:00 05/09/21 11:15 Ascorbic Acid 500 Mg Tablet PO 1,000 mg DAILY SARAH Administration Atorvastatin Calcium 40 mg 05/07/21 22:00 05/08/21 21:53 Atorvastatin Calcium 40 Mg Tablet PO 40 mg QHS SARAH Administration Bisacodyl 10 mg 05/07/21 21:33 05/09/21 05:58 Bisacodyl 5 Mg Tablet PO 10 mg DAILY PRN Administration Constipation Bumetanide 0.5 mg 05/08/21 06:00 05/09/21 05:09 Bumetanide 0.5 Mg Tablet PO 0.5 mg DAILY SARAH Administration Celecoxib 200 mg 05/08/21 06:00 05/09/21 05:09 Celecoxib 200 Mg Capsule PO 200 mg DAILY SARAH Administration Fenofibrate 145 mg 05/08/21 06:00 05/09/21 05:08 Fenofibrate 145 Mg Tablet PO 145 mg DAILY SARAH Administration Insulin Glargine 60 units 05/07/21 22:00 05/08/21 21:54 Insulin Glargine 100 Units/Ml Pen SC 60 units QHS SARAH Administration Insulin Human Lispro 30 unit 05/08/21 08:00 05/09/21 09:15 Insulin Lispro 100 Unit/Ml Insuln.Pen SC 30 u BREAKFAST SARAH Administration Insulin Human Lispro 30 unit 05/08/21 12:00 05/09/21 12:15 Insulin Lispro 100 Unit/Ml Insuln.Pen SC 30 u LUNCH SARAH Administration Insulin Human Lispro 35 unit 05/07/21 17:00 05/08/21 18:29 Insulin Lispro 100 Unit/Ml Insuln.Pen SC 15 u DINNER SARAH Administration Levothyroxine Sodium 200 mcg 05/08/21 06:00 05/09/21 05:14 Levothyroxine 100 Mcg Tablet PO 200 mcg DAILY SARAH Administration Methenamine Hippurate 1 gm 05/07/21 22:00 05/08/21 21:52 Methenamine Hippurate 1 Gm Tablet PO 1 gm QHS SARAH Administration Ondansetron HCl 4 mg 05/07/21 16:31 05/09/21 05:58 Ondansetron Odt 4 Mg Tablet PO 4 mg Q8H PRN Administration NAUSEA/VOMITING Oxycodone HCl 5 mg 05/07/21 21:35 05/09/21 09:21 Oxycodone 5 Mg Tablet PO 5 mg Q4H PRN PRN Administration Pain Score 6-10 Polyethylene Glycol 17 gm 05/08/21 06:00 05/09/21 05:06 Polyethylene Glycol 3350 17 Gm Packet PO 17 gm DAILY SARAH Administration Rivaroxaban 15 mg 05/08/21 06:00 05/09/21 05:08 Rivaroxaban 15 Mg Tablet PO 15 mg DAILY SARAH Administration Senna/Docusate Sodium 2 tablet 05/08/21 06:00 05/09/21 05:08 Senna/Docusate Sodium 1 Tablet PO 2 tablet BID SARAH Administration Sodium Chloride 10 - 40 ml 05/09/21 12:13 05/09/21 12:20 0.9% Saline Lock 10 Ml Syringe IV 10 ml UD PRN Administration SALINE FLUSH Sotalol HCl 120 mg 05/07/21 18:00 05/09/21 05:10 Sotalol Hydrochloride 80 Mg Tablet PO Not Given BID SARAH Tuberculin PPD 0.1 ml 05/15/21 10:00 Tuberculin,Purif.Prot.Deriv. 50 Tu/Ml Vial ID 05/15/21 10:01 X1 ONE Problem List (Last Updated 05/07/21 @ 21:[address] Alen Vargas MD) Coronary artery disease (Acute) Body mass index (BMI) greater than 50 (Acute) Atrial fibrillation (Acute) Hypertension (Chronic) Gout (Acute) Overactive bladder (Acute) Recurrent urinary tract infection (Acute) Diabetes mellitus (Acute) Hyperlipidemia (Acute) Hypothyroidism (Acute) Osteoarthritis of left hip (Acute) Debility (Acute) History of total left hip replacement (Acute) Vital Signs Temp Pulse Resp BP Pulse Ox 96.9 F L 49 L 18 136/62 H 98 05/09/21 14:22 05/09/21 14:22 05/09/21 14:22 05/09/21 14:22 05/09/21 14:22 Oxygen Delivery Method Nasal Cannula Weight: 148.58 kg Body Mass Index (BMI) 113.2 Sodium 137 mmol/L (136-145) 05/08/21 05:10 Potassium 4.3 mmol/L (3.5-5.1) 05/08/21 05:10 Chloride 105 mmol/L (98-107) 05/08/21 05:10 Carbon Dioxide 24.0 mmol/L (21.0-32.0) 05/08/21 05:10 Anion Gap 8 (5-15) 05/08/21 05:10 BUN 39 mg/dL (7-18) H 05/08/21 05:10 Creatinine 1.27 mg/dL (0.55-1.02) H 05/08/21 05:10 Est GFR (MDRD) Af Amer 53 mL/min (>60) L 05/08/21 05:10 Est GFR (MDRD) Non-Af 44 mL/min (>60) L 05/08/21 05:10 BUN/Creatinine Ratio 30.7 RATIO (10-20) H 05/08/21 05:10 Glucose 163 mg/dL (74-106) H 05/08/21 05:10 Assessment/Plan: 1. Pain: acetaminophen 1000mg PO Q6H PRN pain 1-5 and oxycodone 5mg PO Q4H PRN pain 6-10. Please continue to monitor for increased pain, PRN usage, constipation and respiratory depression. 2. DVT prophylaxis/atrial fibrillation: rivaroxaban 15mg PO daily and sotalol 120mg PO BID. Please continue to monitor for S/S of bleeding, hemoglobin (last 8.1g/dL), renal function, BP (last 136/62) and HR (last 49). *3. Hyperlipidemia: atorvastatin 40mg PO QHS and fenofibrate 145mg PO daily. Please consider ordering a lipid panel now and then annually as clinically appropriate. Last level from 06/2016. Thanks. Please continue to monitor renal function and for muscle pain. 4. Recurrent UTI: methenamine 1gm PO QHS and ascorbic acid 1000mg PO daily. Please continue to monitor for S/S of UTI. 5. Edema: bumetanide 0.5mg PO daily. Please continue to monitor potassium (last 4.3mmol/L), edema and renal function. 6. Diabetes mellitus II: insulin glargine 60units SC QHS and insulin lispro 30units SC breakfast and lunch, 35units with dinner. Please continue to monitor hemoglobin A1c (last 6.2% from 02/25/21), glucose (last 154mg/dL), and for S/S of hypoglycemia. 7. Hypothyroidism: levothyroxine 200mcg PO daily. Please continue to monitor TSH (last 02/25/21) and for S/S of hypo/hyperthyroidism. 8. Osteoarthritis: celecoxib 200mg PO daily. Please continue to monitor for S/S of bleeding and renal function. 9. Nausea: ondansetron 4mg PO Q8H PRN nausea/vomiting. Please continue to monitor for nausea, vomiting and PRN usage. Psychotropic Medications: None Unnecessary Medications: None Bowel Regimen: Miralax 17gm PO daily, senna/docusate 2T PO BID and bisacodyl 10mg PO daily PRN constipation. Please continue to monitor for constipation and PRN usage. Date of Note:: 05/09/21
[2021-05-09 16:51] LABS: Bedside Glucose 81 mg/dL (70-110)
--- NOTE | 2021-05-09 18:01 | NURSING ---
NOTIFIED DR NGUYEN THAT BETAPACE WAS HELD. ORDER TO HOLD IF PULSE IS LESS THAN 55. ALSO, NOTIFIED THAT BS WAS 81. STATED TO LET R' EAT AND RECHECK AND OK TO GIVE.
[2021-05-09] MEDS: Insulin Lispro 100 UNIT/ML INSULN.PEN 35 UNIT SC (18:38)
[2021-05-09 18:46] LABS: Bedside Glucose 96 mg/dL (70-110)
[2021-05-09 18:46] LABS: Bedside Glucose 76 mg/dL (70-110)
[2021-05-09] MEDS: Atorvastatin Calcium 40 MG Tablet PO (22:38)
[2021-05-09] MEDS: Methenamine Hippurate 1 GM Tablet PO (22:38)
[2021-05-09 22:45] LABS: Bedside Glucose 162 mg/dL (70-110)
[2021-05-10 06:03] VITALS: BP 123/54; PULSE 55; RESP 16; TEMP 36.2; O2SAT 98
[2021-05-10 06:07] VITALS: PULSE 52
[2021-05-10] MEDS: Levothyroxine 100 MCG Tablet 200 MCG PO (06:10)
[2021-05-10] MEDS: 0.9% Saline Lock 10 ML Syringe IV (06:10)
[2021-05-10] MEDS: Ascorbic Acid 500 MG Tablet 1000 MG PO (06:10)
[2021-05-10] MEDS: Celecoxib 200 MG Capsule PO (06:10)
[2021-05-10] MEDS: Rivaroxaban 15 MG Tablet PO (06:11)
[2021-05-10] MEDS: Fenofibrate 145 MG Tablet PO (06:11)
[2021-05-10] MEDS: Polyethylene Glycol 3350 17 GM PACKET PO (06:11)
[2021-05-10] MEDS: Senna/Docusate Sodium 1 Tablet 2 TABLET PO ×2 (06:11→17:09)
[2021-05-10] MEDS: Bumetanide 0.5 MG Tablet PO (06:12)
[2021-05-10] MEDS: oxyCODONE 5 MG Tablet PO (06:19)
[2021-05-10 06:31] LABS: Bedside Glucose 127 mg/dL (70-110)
[2021-05-10] MEDS: Insulin Lispro 100 UNIT/ML INSULN.PEN 30 UNIT SC (08:05)
[2021-05-10 11:05] LABS: Bedside Glucose 54 mg/dL (70-110)
[2021-05-10 12:35] LABS: Bedside Glucose 66 mg/dL (70-110)
[2021-05-10 14:11] LABS: Bedside Glucose 85 mg/dL (70-110)
[2021-05-10 14:12] VITALS: BP 144/68; PULSE 55; RESP 16; TEMP 36.4; O2SAT 100
[2021-05-10 17:15] LABS: Bedside Glucose 134 mg/dL (70-110)
[2021-05-10] MEDS: Acetaminophen 500 MG Tablet 1000 MG PO (17:16)
[2021-05-10] MEDS: Sotalol Hydrochloride 80 MG Tablet 120 MG PO (17:21)
[2021-05-10] MEDS: Atorvastatin Calcium 40 MG Tablet PO (21:45)
[2021-05-10] MEDS: Methenamine Hippurate 1 GM Tablet PO (21:45)
[2021-05-10 22:06] LABS: Bedside Glucose 191 mg/dL (70-110)
[2021-05-11 00:31] VITALS: PULSE 54; RESP 14
[2021-05-11] MEDS: Bumetanide 0.5 MG Tablet PO (05:42)
[2021-05-11] MEDS: Levothyroxine 100 MCG Tablet 200 MCG PO (05:42)
[2021-05-11] MEDS: Polyethylene Glycol 3350 17 GM PACKET PO (05:42)
[2021-05-11] MEDS: Fenofibrate 145 MG Tablet PO (05:42)
[2021-05-11] MEDS: Ascorbic Acid 500 MG Tablet 1000 MG PO (05:42)
[2021-05-11] MEDS: Celecoxib 200 MG Capsule PO (05:43)
[2021-05-11] MEDS: Sotalol Hydrochloride 80 MG Tablet 120 MG PO (05:43)
[2021-05-11] MEDS: Rivaroxaban 15 MG Tablet PO (05:45)
[2021-05-11] MEDS: Senna/Docusate Sodium 1 Tablet 2 TABLET PO (05:49)
[2021-05-11 06:25] LABS: Bedside Glucose 136 mg/dL (70-110)
[2021-05-11 07:05] LABS: Bedside Glucose 44 mg/dL (70-110)
[2021-05-11 07:05] LABS: Bedside Glucose 52 mg/dL (70-110)
[2021-05-11 07:27] VITALS: BP 136/56; PULSE 57; RESP 14; TEMP 36.3; O2SAT 97
[2021-05-11] MEDS: Insulin Lispro 100 UNIT/ML INSULN.PEN 30 UNIT SC (08:23)
[2021-05-11 11:01] LABS: Bedside Glucose 99 mg/dL (70-110)
[2021-05-11 15:59] VITALS: BP 137/39; PULSE 54; RESP 18; TEMP 36.2; O2SAT 98
[2021-05-11 17:01] LABS: Bedside Glucose 118 mg/dL (70-110)
[2021-05-11] MEDS: Insulin Lispro 100 UNIT/ML INSULN.PEN 15 UNIT SC (17:29)
[2021-05-11] MEDS: Menthol/Lanolin/Calamine/Znox 113 GM Tube 1 APPLIC TOPICAL (17:30)
[2021-05-11] MEDS: Nystatin Powder 15gm Bottle 1 APPLIC TOPICAL (17:30)
[2021-05-11] MEDS: oxyCODONE 5 MG Tablet PO (19:54)
[2021-05-11] MEDS: Atorvastatin Calcium 40 MG Tablet PO (20:09)
[2021-05-11] MEDS: Methenamine Hippurate 1 GM Tablet PO (20:10)
[2021-05-11 21:45] LABS: Bedside Glucose 103 mg/dL (70-110)
[2021-05-12 04:44] VITALS: BP 116/42; PULSE 54; RESP 18; TEMP 36.3; O2SAT 98
[2021-05-12] MEDS: Levothyroxine 100 MCG Tablet 200 MCG PO (04:45)
[2021-05-12] MEDS: oxyCODONE 5 MG Tablet PO ×2 (04:45→14:04)
[2021-05-12] MEDS: Bumetanide 0.5 MG Tablet PO (04:46)
[2021-05-12] MEDS: Ascorbic Acid 500 MG Tablet 1000 MG PO (04:47)
[2021-05-12] MEDS: Fenofibrate 145 MG Tablet PO (04:47)
[2021-05-12] MEDS: Rivaroxaban 15 MG Tablet PO (04:47)
[2021-05-12] MEDS: Celecoxib 200 MG Capsule PO (04:47)
[2021-05-12] MEDS: Nystatin Powder 15gm Bottle 1 APPLIC TOPICAL ×2 (04:47→18:53)
[2021-05-12] MEDS: Menthol/Lanolin/Calamine/Znox 113 GM Tube 1 APPLIC TOPICAL ×2 (04:50→18:53)
[2021-05-12] MEDS: 0.9% Saline Lock 10 ML Syringe IV (04:51)
[2021-05-12 06:20] LABS: Bedside Glucose 96 mg/dL (70-110)
[2021-05-12 09:01] LABS: Bedside Glucose 150 mg/dL (70-110)
[2021-05-12] MEDS: Insulin Lispro 100 UNIT/ML INSULN.PEN 24 UNIT SC (09:30)
[2021-05-12 10:46] LABS: Bedside Glucose 174 mg/dL (70-110)
[2021-05-12 13:12] VITALS: BP 131/46; PULSE 61; RESP 18; TEMP 36.6; O2SAT 95
--- NOTE | 2021-05-12 14:51 | NURSING ---
Called Dr. Damon's office to get order to remove surgical Mepilex.
[2021-05-12 16:21] LABS: Bedside Glucose 182 mg/dL (70-110)
[2021-05-12] MEDS: Insulin Lispro 100 UNIT/ML INSULN.PEN SC ×2 (18:24→22:45)
[2021-05-12] MEDS: Senna/Docusate Sodium 1 Tablet 2 TABLET PO (18:25)
[2021-05-12 18:31] VITALS: BP 120/46; PULSE 59
[2021-05-12] MEDS: Sotalol Hydrochloride 80 MG Tablet 120 MG PO (19:48)
[2021-05-12 21:31] LABS: Bedside Glucose 216 mg/dL (70-110)
[2021-05-12] MEDS: Atorvastatin Calcium 40 MG Tablet PO (22:43)
[2021-05-12] MEDS: Methenamine Hippurate 1 GM Tablet PO (22:43)
[2021-05-13 06:16] LABS: Bedside Glucose 152 mg/dL (70-110)
[2021-05-13 07:12] VITALS: BP 123/45; PULSE 59; RESP 16; TEMP 36.6; O2SAT 97
[2021-05-13] MEDS: Sotalol Hydrochloride 80 MG Tablet 120 MG PO (07:16)
[2021-05-13] MEDS: Celecoxib 200 MG Capsule PO (07:16)
[2021-05-13] MEDS: Senna/Docusate Sodium 1 Tablet 2 TABLET PO (07:17)
[2021-05-13] MEDS: Levothyroxine 100 MCG Tablet 200 MCG PO (07:17)
[2021-05-13] MEDS: Ascorbic Acid 500 MG Tablet 1000 MG PO (07:17)
[2021-05-13] MEDS: Bumetanide 0.5 MG Tablet PO (07:17)
[2021-05-13] MEDS: Rivaroxaban 15 MG Tablet PO (07:18)
[2021-05-13] MEDS: Fenofibrate 145 MG Tablet PO (07:18)
[2021-05-13] MEDS: Menthol/Lanolin/Calamine/Znox 113 GM Tube 1 APPLIC TOPICAL ×2 (07:19→18:31)
[2021-05-13] MEDS: Nystatin Powder 15gm Bottle 1 APPLIC TOPICAL ×2 (07:19→18:32)
[2021-05-13] MEDS: Insulin Lispro 100 UNIT/ML INSULN.PEN SC ×4 (07:21→22:44)
[2021-05-13] MEDS: Acetaminophen 500 MG Tablet 1000 MG PO (07:25)
[2021-05-13] MEDS: oxyCODONE 5 MG Tablet PO (09:26)
[2021-05-13 10:56] LABS: Bedside Glucose 212 mg/dL (70-110)
--- NOTE | 2021-05-13 11:51 | CASEMGMT ---
BIMS and PHQ9 interviews completed on this date for MDS assessment. CHIKI Covarrubias
[2021-05-13 15:17] VITALS: BP 135/47; PULSE 50; RESP 16; TEMP 36.3; O2SAT 97
[2021-05-13 17:00] LABS: Bedside Glucose 246 mg/dL (70-110)
[2021-05-13 18:34] VITALS: BP 121/50; PULSE 52
[2021-05-13 21:36] LABS: Bedside Glucose 296 mg/dL (70-110)
[2021-05-13 22:15] VITALS: PULSE 53; RESP 16; O2SAT 99
[2021-05-13] MEDS: Methenamine Hippurate 1 GM Tablet PO (22:42)
[2021-05-13] MEDS: Atorvastatin Calcium 40 MG Tablet PO (22:43)
[2021-05-14 05:30] VITALS: BP 131/47; PULSE 53
[2021-05-14] MEDS: Bumetanide 0.5 MG Tablet PO (05:31)
[2021-05-14] MEDS: Menthol/Lanolin/Calamine/Znox 113 GM Tube 1 APPLIC TOPICAL ×2 (05:32→18:24)
[2021-05-14] MEDS: Celecoxib 200 MG Capsule PO (05:32)
[2021-05-14] MEDS: Levothyroxine 100 MCG Tablet 200 MCG PO (05:33)
[2021-05-14] MEDS: Fenofibrate 145 MG Tablet PO (05:33)
[2021-05-14] MEDS: Nystatin Powder 15gm Bottle 1 APPLIC TOPICAL ×2 (05:34→18:23)
[2021-05-14] MEDS: Ascorbic Acid 500 MG Tablet 1000 MG PO (05:34)
[2021-05-14] MEDS: Rivaroxaban 15 MG Tablet PO (05:34)
[2021-05-14] MEDS: Venlafaxine XR 75 MG Capsule PO (05:37)
[2021-05-14 06:21] LABS: Bedside Glucose 250 mg/dL (70-110)
[2021-05-14] MEDS: Insulin Lispro 100 UNIT/ML INSULN.PEN SC ×5 (08:33→22:03)
[2021-05-14 08:41] VITALS: PULSE 53; RESP 16; O2SAT 98
[2021-05-14 11:21] LABS: Bedside Glucose 299 mg/dL (70-110)
--- NOTE | 2021-05-14 11:28 | CASEMGMT ---
Social Work Team meeting held today with pt and pts children Bill and Radha present. Pt is receiving PT/OT and progressing well. NRD with insurance is 05/16/21 with expected d/c on 05/20. Pt requesting to return home sooner. Discharge was discussed and plan is for d/c on 05/17/21 with Home health PT/OT. LORI provided list of [facility] providers including quality and resource use data and consistent with the patient's preferred geographic region, medical needs and insurance network. Pt preferred provider is [facility]. Pt does have first floor set up in the home and will be returning home alone. Grandchildren live next door. Referral to [facility] for PT/OT. Will await determination. 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 Family made aware and will obtain these items. Pt has all other needed DME. LORI provided information on medical alert systems. Discharge Date: 05/17/21 Discharge Disposition: Home alone, home health care PT/OT CHIKI Covarrubias
[2021-05-14] MEDS: Insulin Lispro 100 UNIT/ML INSULN.PEN 6 UNIT SC (11:47)
[2021-05-14 16:00] VITALS: BP 143/51; PULSE 54; RESP 17; TEMP 36.3; O2SAT 98
[2021-05-14 17:01] LABS: Bedside Glucose 181 mg/dL (70-110)
[2021-05-14] MEDS: Sotalol Hydrochloride 80 MG Tablet 120 MG PO (18:21)
[2021-05-14] MEDS: Insulin Lispro 100 UNIT/ML INSULN.PEN 7 UNIT SC (18:22)
--- NOTE | 2021-05-14 20:12 | DS.PCM_ITS ---
Providers Date of Admission: 05/07/21 Primary Care Physician: Dr. Maggi Chicas DO Reason For Visit: L TOTAL HIP Diagnosis Discharge Diagnosis (1) Debility: Status: Acute Code(s): R53.81 - Other malaise (2) History of total left hip replacement: Status: Acute Code(s): Z96.642 - Presence of left artificial hip joint (3) Osteoarthritis of left hip: Status: Acute Code(s): M16.12 - Unilateral primary osteoarthritis, left hip (4) Hypothyroidism: Status: Acute Code(s): E03.9 - Hypothyroidism, unspecified (5) Hyperlipidemia: Status: Acute Code(s): E78.5 - Hyperlipidemia, unspecified (6) Diabetes mellitus: Status: Acute Code(s): E11.9 - Type 2 diabetes mellitus without complications (7) Recurrent urinary tract infection: Status: Acute Code(s): N39.0 - Urinary tract infection, site not specified (8) Overactive bladder: Status: Acute Code(s): N32.81 - Overactive bladder (9) Gout: Status: Acute Code(s): M10.9 - Gout, unspecified (10) Hypertension: Status: Chronic Code(s): I10 - Essential (primary) hypertension (11) Atrial fibrillation: Status: Acute Code(s): I48.91 - Unspecified atrial fibrillation (12) Body mass index (BMI) greater than 50: Status: Acute (13) Coronary artery disease: Status: Acute Code(s): I25.10 - Atherosclerotic heart disease of [place] coronary artery without angina pectoris Medications at Discharge Home Medications aspirin 81 mg PO DAILY@0800 09/07/14 atorvastatin 40 mg PO QHS 09/07/14 fenofibric acid (choline) [Trilipix] 135 mg PO DAILY 09/07/14 sotalol [Betapace] 120 mg PO BID 09/07/14 levothyroxine 200 mcg PO DAILY 04/12/20 ascorbic acid (vitamin C) [Vitamin C] 1 cap PO DAILY 02/17/21 bumetanide 0.5 mg PO DAILY 02/17/21 insulin glargine U-300 conc [Toujeo SoloStar U-300 Insulin] 60 unit SUBCUT QHS 02/17/21 insulin lispro 30 unit SUBCUT BREAKFAST 02/17/21 insulin lispro 30 unit SUBCUT QHS 02/17/21 insulin lispro 35 unit SUBCUT DINNER 02/17/21 methenamine hippurate 1 g PO QHS 02/17/21 celecoxib [Celebrex] 200 mg PO DAILY 05/07/21 cephalexin [Keflex] 500 mg PO Q8H 05/07/21 hydromorphone [Dilaudid] 2 mg PO Q4H PRN 05/07/21 ondansetron HCl [Zofran] 4 mg PO Q8H PRN 05/07/21 oxycodone 5 mg PO Q4H PRN 05/07/21 tramadol 50 mg PO Q6H PRN 05/07/21 acetaminophen 1,000 mg PO Q6H PRN PRN #0 tab 05/14/21 oxycodone 5 mg PO Q4H PRN PRN 7 Days #42 tab 05/14/21 rivaroxaban [Xarelto] 15 mg PO DAILY 21 Days #21 tab 05/14/21 sennosides-docusate sodium [Stool Softener-Stimulant Laxat] 2 tab PO BID 30 Days #120 tab 05/14/21 venlafaxine 75 mg PO DAILY 30 Days #30 cap 05/14/21 Hospital Course Operations total hip replacement (Left.) Procedures None Summary of Care Provided Minutes Spent on Discharge: 35 Hospital Course: 70 year old female with below past medical history underwent left total hip replacement 04/30/[address] Ram at [facility], admitted to TCU with debility, here for rehabilitation, strengthening, prior to discharge home alone. Hemoglobin 6.6, transfused 2 units PRBC with good results. Discharge home alone 05/17/2021, Home Health Care PT/OT. Physical Exam Const alert and oriented x3 General Appearance: cooperative HEENT normocephalic Eyes PERRL and EOMs intact bilaterally Neck supple, no JVD and no carotid bruits Resp normal respiratory effort, normal air movement and clear to auscultation bilaterally Cardio regular rate and regular rhythm GI normal to inspection, nondistended, normoactive bowel sounds, non-tender and non-distended Extremity normal capillary refill General Extremity: Negative for edema Skin no rashes or lesions noted General Skin Exam: no breakdown Psych affect normal Appearance: appropriate Medical Records Data Medical Nutrition Assessment Dietitian: Malnutrition Criteria Met Start: 05/08/21 11:18 Freq: Status: Active Protocol: Document 05/08/21 11:34 BP (Rec: 05/08/21 11:34 BP [id number]) Nutrition Malnutrition Evidence of Malnutrition Exists No Clinical Problem Unintended Weight Gain Etiology related to physical inactivity and fluid retention Signs/Symptoms as evidenced by pt report unintentional wt gain starting post hip replacement d/t immobility, and suspect some wt gain d/t BLE non-pitting edema. Status Active Problem Recommendation Dietitian Recommendations/Changes Will provide Cardiac, CHO controlled diet. Nutrition education as warranted by resident prior to discharge. Weight / BMI Weight Weight: 147.474 kg Body Mass Index (BMI) 113.2 ABG / Lab / Microbiology Data Result Diagrams: 05/09/21 05:17 05/08/21 05:10 Laboratory: Laboratory Results - last 24 hr 05/13/21 21:32: POC Glucose 296 H 05/14/21 06:13: POC Glucose 250 H 05/14/21 11:09: POC Glucose 299 H 05/14/21 16:51: POC Glucose 181 H D/C Instructions Discharge Diet: No restrictions Discharge Activity: Return to Normal Activity, May Shower and Use Walker Weight Bearing Status: Weight bearing as tolerated Call your doctor if you observe: Fever of 101 or Higher, Inability to urinate, Inability to have a bowel movement, Shortness of breath, Dizziness, Fainting spells, Swelling in the ankles, Chest pain and Uncontrolled pain Additional Instructions: Discharge home alone 05/17/2021, Home Health Care PT/OT. Please Follow Up With: Carroll Ram MD When: As scheduled. Meaningful Use Info Meaningful Use Diagnoses (Choose all that apply): None applicable Discharge Plan Admission Admit Date/Time: 05/07/21 14:40 Primary Reason for Your Visit: Debility. Attending Provider: Alen Vargas Chi Primary Care Provider: Maggi Chicas Instructions Patient Instructions: ED Chest Pain, Noncardiac Additional Instructions / Restrictions: Discharge home alone 05/17/2021, Home Health Care PT/OT. Discharge Orders/Prescriptions Prescriptions: New oxycodone 5 mg Tablet 5 mg PO Q4H PRN PRN (Reason: Pain Score 6-10) 7 Days Qty: 42 RF: 0 Xarelto 15 mg Tablet 15 mg PO DAILY 21 Days Qty: 21 RF: 0 sennosides-docusate sodium [Stool Softener-Stimulant Laxat] 8.6-50 mg Tablet 2 tab PO BID 30 Days Qty: 120 RF: 0 acetaminophen 500 mg Tablet 1,000 mg PO Q6H PRN PRN (Reason: Pain Score 1-5) Qty: 0 RF: 0 venlafaxine 75 mg Capsule,Extended Release 24hr 75 mg PO DAILY 30 Days Qty: 30 RF: 0 Continued atorvastatin 40 MG tablet 40 mg PO QHS RF: 0 sotalol [Betapace] 120 MG tablet 120 mg PO BID RF: 0 aspirin 81 MG tablet,chewable 81 mg PO DAILY@0800 RF: 0 fenofibric acid (choline) [Trilipix] 135 MG capsule,delayed release(DR/EC) 135 mg PO DAILY RF: 0 levothyroxine 175 MCG tablet 200 mcg PO DAILY RF: 0 methenamine hippurate 1 gram Tablet 1 g PO QHS RF: 0 bumetanide 0.5 mg Tablet 0.5 mg PO DAILY RF: 0 insulin lispro 100 unit/mL Solution 30 unit SUBCUT BREAKFAST RF: 0 insulin lispro 100 unit/mL Solution 35 unit SUBCUT DINNER RF: 0 insulin lispro 100 unit/mL Solution 30 unit SUBCUT QHS RF: 0 Vitamin C 1,000 mg Capsule, Extended Release 1 cap PO DAILY RF: 0 Toujeo SoloStar U-300 Insulin 300 unit/mL (1.5 mL) Insulin Pen 60 unit SUBCUT QHS RF: 0 Discontinued rivaroxaban 20 MG tablet 15 mg PO DAILY RF: 0 sennosides-docusate sodium [Senna with Docusate Sodium] 8.6-50 mg Tablet 1 tab PO BID RF: 0 No Action celecoxib [Celebrex] 200 mg Capsule 200 mg PO DAILY RF: 0 ondansetron HCl [Zofran] 4 mg Tablet 4 mg PO Q8H PRN (Reason: Nausea) RF: 0 tramadol 50 mg Tablet 50 mg PO Q6H PRN (Reason: Pain) RF: 0 hydromorphone [Dilaudid] 2 mg Tablet 2 mg PO Q4H PRN (Reason: Pain (Scale Score 7-10)) RF: 0 cephalexin [Keflex] 500 mg Capsule 500 mg PO Q8H RF: 0 oxycodone 5 mg Tablet 5 mg PO Q4H PRN (Reason: Moderate Pain (Scale Score 5-6)) RF: 0 Referrals / Follow Up: Maggi Chicas DO [Primary Care Provider] - Disposition Disposition (needs filled in before D/C Order can be placed): Home Health Service
[2021-05-14 21:41] LABS: Bedside Glucose 235 mg/dL (70-110)
[2021-05-14] MEDS: oxyCODONE 5 MG Tablet PO (22:00)
[2021-05-14] MEDS: Atorvastatin Calcium 40 MG Tablet PO (22:01)
[2021-05-14] MEDS: Methenamine Hippurate 1 GM Tablet PO (22:01)
[2021-05-15 05:30] VITALS: BP 132/49; PULSE 53; RESP 16; TEMP 36.1; O2SAT 97
[2021-05-15] MEDS: Ascorbic Acid 500 MG Tablet 1000 MG PO (05:34)
[2021-05-15] MEDS: Levothyroxine 100 MCG Tablet 200 MCG PO (05:34)
[2021-05-15] MEDS: Celecoxib 200 MG Capsule PO (05:34)
[2021-05-15] MEDS: Fenofibrate 145 MG Tablet PO (05:34)
[2021-05-15] MEDS: Bumetanide 0.5 MG Tablet PO (05:34)
[2021-05-15] MEDS: Rivaroxaban 15 MG Tablet PO (05:34)
[2021-05-15] MEDS: Nystatin Powder 15gm Bottle 1 APPLIC TOPICAL ×2 (05:35→17:13)
[2021-05-15] MEDS: Venlafaxine XR 75 MG Capsule PO (05:35)
[2021-05-15] MEDS: Menthol/Lanolin/Calamine/Znox 113 GM Tube 1 APPLIC TOPICAL ×2 (05:36→17:13)
[2021-05-15 05:56] LABS: Absolute Lymphocyte Count 0.53 X10^3/uL (0.83-4.51); Basophil# 0.07 X10^3/uL; Basophil% 1.5 % (0-1); Eosinophil# 0.43 X10^3/uL; Eosinophils% 9.2 % (0-5); Hematocrit 26.1 % (37-47); Hemoglobin 7.7 g/dL (12.0-15.0); Lymphocyte # 0.53 X10^3/ul (0.83-4.51); Lymphocyte % 11.4 % (19-41); Mean Corp Hgb Conc 29.5 g/dL (32-36); Mean Corpuscular Hgb 27.5 pg (27.0-32.0); Mean Corpuscular Volume 93.2 fL (81-99); Mean Platelet Vol. 10.1 fl (6.2-12.0); Monocyte# 0.57 X10^3/uL; Monocyte% 12.3 % (0-10); NRBC Flagged by Analyzer 0 % (0-5); Neutrophil # 3.03 X10^3/uL (2.7-7.7); Neutrophil % 65.2 % (47-70); POSITIVE DIFFERENTIAL YES; Platelet Count 265 K/mm3 (150-450); RBC Distribution Width CV 15.6 % (11.6-14.6); RBC Distribution Width SD 53.1 fl (35.1-43.9); White Blood Count 4.7 K/mm3 (4.4-11.0)
[2021-05-15 06:03] LABS: Differential Indicated SCAN CRITERIA MET
[2021-05-15 06:26] LABS: Bedside Glucose 191 mg/dL (70-110)
[2021-05-15 06:29] LABS: Anion Gap 6 (5-15); BUN 35 mg/dL (7-18); BUN/Creat Ratio 32.1 RATIO (10-20); Calcium,Total 8.3 mg/dL (8.5-10.1); Chloride 110 mmol/L (98-107); Creatinine, Serum 1.09 mg/dL (0.55-1.02); EST Glomerular Filtration Rate 53 mL/min (>60); Est Glom Filt Rate - Afr Amer 64 mL/min (>60); Glucose 170 mg/dL (74-106); Potassium 4.4 mmol/L (3.5-5.1); Sodium Level 140 mmol/L (136-145)
[2021-05-15 06:30] LABS: Differential Comment SCANNED
[2021-05-15] MEDS: Insulin Lispro 100 UNIT/ML INSULN.PEN SC ×5 (08:24→22:17)
[2021-05-15 10:00] VITALS: PULSE 50; RESP 16; O2SAT 98
[2021-05-15 10:31] LABS: Bedside Glucose 259 mg/dL (70-110)
[2021-05-15] MEDS: Insulin Lispro 100 UNIT/ML INSULN.PEN 6 UNIT SC (12:18)
[2021-05-15 13:53] VITALS: BP 120/51; PULSE 53; RESP 16; TEMP 36.1; O2SAT 98
--- NOTE | 2021-05-15 15:08 | CASEMGMT ---
Social Work SW spoke with nursing who states pt may be getting blood transfusion tomorrow. Therapy reporting pt was unable to complete steps in therapy. D/C date had been set for 05/17/21. SW met with pt and discussed discharge and concerns listed above. SW informed pt that team does not feel pt is ready for d/c at this time. Pt is reluctantly agreeable to continued stay. Pt sitting in room with no TV, books or radio on. SW offered pt something to do and pt denied. SW offered to open the blinds futher and pt declined. Pt tearful, expressing frustration over current situation. Support provided. NRD with insurance is 05/16/21. Phone call to pt shert Radha who was in team meeting yesterday. Radha informed that d/c is cancelled at this time and agreeable. LORI will continue to follow for support and d/c planning. CHIKI Covarrubias
[2021-05-15 16:05] LABS: Bedside Glucose 286 mg/dL (70-110)
[2021-05-15] MEDS: Insulin Lispro 100 UNIT/ML INSULN.PEN 7 UNIT SC (17:14)
[2021-05-15] MEDS: Tuberculin,Purif.prot.deriv. 50 TU/ML Vial 0.1 ML ID (18:13)
[2021-05-15] MEDS: Methenamine Hippurate 1 GM Tablet PO (22:16)
[2021-05-15] MEDS: Atorvastatin Calcium 40 MG Tablet PO (22:17)
[2021-05-15 22:25] LABS: Bedside Glucose 235 mg/dL (70-110)
[2021-05-16 05:56] VITALS: BP 137/59; PULSE 57
[2021-05-16] MEDS: Sotalol Hydrochloride 80 MG Tablet 120 MG PO ×2 (05:57→16:23)
[2021-05-16] MEDS: Bumetanide 0.5 MG Tablet PO (05:57)
[2021-05-16] MEDS: Levothyroxine 100 MCG Tablet 200 MCG PO (05:58)
[2021-05-16] MEDS: Ascorbic Acid 500 MG Tablet 1000 MG PO (05:58)
[2021-05-16] MEDS: Fenofibrate 145 MG Tablet PO (05:58)
[2021-05-16] MEDS: Menthol/Lanolin/Calamine/Znox 113 GM Tube 1 APPLIC TOPICAL ×2 (05:58→16:27)
[2021-05-16] MEDS: Venlafaxine XR 75 MG Capsule PO (05:58)
[2021-05-16] MEDS: Celecoxib 200 MG Capsule PO (05:58)
[2021-05-16] MEDS: Senna/Docusate Sodium 1 Tablet 2 TABLET PO (05:59)
[2021-05-16] MEDS: Polyethylene Glycol 3350 17 GM PACKET PO (05:59)
[2021-05-16] MEDS: Nystatin Powder 15gm Bottle 1 APPLIC TOPICAL ×2 (05:59→16:26)
[2021-05-16 06:40] LABS: Bedside Glucose 190 mg/dL (70-110)
--- NOTE | 2021-05-16 08:40 | NURSING ---
Pt off floor to infusion center to receive 2 units of PRBC.
[2021-05-16] MEDS: Insulin Lispro 100 UNIT/ML INSULN.PEN SC ×5 (08:44→23:08)
--- NOTE | 2021-05-16 09:49 | NURSING ---
Addendum entered by Mary Jane Benedict 05/16/21 09:53: Pt sent to tranfusion center to transfuse 2 units of blood, pt started on ferrex 150, H/H repeat on 05/17/21 Original Note: Pt to receive blood transfusion today d/t low Hgb. Dr. Vargas was updated on Hemaglobin trending down N.O. to hold Xarelto until wednesday and recheck H/H.
--- NOTE | 2021-05-16 10:51 | CASEMGMT ---
Social Work Insurance granted continued stay with next update 05/19 and an expected issue of discharge at that time. Pt is currently away for procedure. SW updated pt dgt CHIKI Rojo
[2021-05-16] MEDS: Insulin Lispro 100 UNIT/ML INSULN.PEN 6 UNIT SC (11:52)
[2021-05-16 15:07] VITALS: BP 152/77; PULSE 58; RESP 18; TEMP 36.3; O2SAT 98
[2021-05-16 16:10] LABS: Bedside Glucose 245 mg/dL (70-110)
[2021-05-16] MEDS: Iron Polysaccharide Complex 150 MG CAPSULE PO (16:20)
[2021-05-16] MEDS: Insulin Lispro 100 UNIT/ML INSULN.PEN 7 UNIT SC (16:21)
[2021-05-16] MEDS: Methenamine Hippurate 1 GM Tablet PO (23:08)
[2021-05-16] MEDS: Atorvastatin Calcium 40 MG Tablet PO (23:08)
[2021-05-16 23:16] LABS: Bedside Glucose 238 mg/dL (70-110)
[2021-05-17 05:59] VITALS: BP 133/55; PULSE 53
[2021-05-17] MEDS: Polyethylene Glycol 3350 17 GM PACKET PO (06:00)
[2021-05-17] MEDS: Levothyroxine 100 MCG Tablet 200 MCG PO (06:00)
[2021-05-17] MEDS: Venlafaxine XR 75 MG Capsule PO (06:01)
[2021-05-17] MEDS: Ascorbic Acid 500 MG Tablet 1000 MG PO (06:01)
[2021-05-17] MEDS: Senna/Docusate Sodium 1 Tablet 2 TABLET PO (06:01)
[2021-05-17] MEDS: Fenofibrate 145 MG Tablet PO (06:02)
[2021-05-17] MEDS: Menthol/Lanolin/Calamine/Znox 113 GM Tube 1 APPLIC TOPICAL ×2 (06:02→17:10)
[2021-05-17] MEDS: Bumetanide 0.5 MG Tablet PO (06:02)
[2021-05-17] MEDS: Nystatin Powder 15gm Bottle 1 APPLIC TOPICAL (06:03)
[2021-05-17] MEDS: Celecoxib 200 MG Capsule PO (06:03)
[2021-05-17 06:26] LABS: Bedside Glucose 156 mg/dL (70-110)
[2021-05-17 07:49] LABS: Hematocrit 30.5 % (37-47); Hemoglobin 9.5 g/dL (12.0-15.0)
[2021-05-17] MEDS: Iron Polysaccharide Complex 150 MG CAPSULE PO (08:06)
[2021-05-17] MEDS: Insulin Lispro 100 UNIT/ML INSULN.PEN SC ×5 (08:07→22:04)
[2021-05-17 11:06] LABS: Bedside Glucose 205 mg/dL (70-110)
[2021-05-17] MEDS: Insulin Lispro 100 UNIT/ML INSULN.PEN 6 UNIT SC (11:32)
[2021-05-17 15:57] LABS: Bedside Glucose 281 mg/dL (70-110)
[2021-05-17 16:00] VITALS: BP 145/56; PULSE 90; RESP 18; TEMP 36.5; O2SAT 98
[2021-05-17] MEDS: Insulin Lispro 100 UNIT/ML INSULN.PEN 7 UNIT SC (17:08)
[2021-05-17] MEDS: Sotalol Hydrochloride 80 MG Tablet 120 MG PO (17:09)
[2021-05-17] MEDS: Atorvastatin Calcium 40 MG Tablet PO (21:55)
[2021-05-17] MEDS: Methenamine Hippurate 1 GM Tablet PO (21:56)
[2021-05-17 22:36] LABS: Bedside Glucose 383 mg/dL (70-110)
[2021-05-18] MEDS: Celecoxib 200 MG Capsule PO (06:32)
[2021-05-18] MEDS: Venlafaxine XR 75 MG Capsule PO (06:32)
[2021-05-18] MEDS: Bumetanide 0.5 MG Tablet PO (06:32)
[2021-05-18] MEDS: Ascorbic Acid 500 MG Tablet 1000 MG PO (06:32)
[2021-05-18] MEDS: Levothyroxine 100 MCG Tablet 200 MCG PO (06:32)
[2021-05-18] MEDS: Nystatin Powder 15gm Bottle 1 APPLIC TOPICAL (06:33)
[2021-05-18] MEDS: Fenofibrate 145 MG Tablet PO (06:33)
[2021-05-18] MEDS: Menthol/Lanolin/Calamine/Znox 113 GM Tube 1 APPLIC TOPICAL ×2 (06:33→17:31)
[2021-05-18 06:36] LABS: Bedside Glucose 254 mg/dL (70-110)
[2021-05-18] MEDS: Iron Polysaccharide Complex 150 MG CAPSULE PO (08:24)
[2021-05-18] MEDS: Insulin Lispro 100 UNIT/ML INSULN.PEN SC ×5 (08:24→22:34)
[2021-05-18 11:06] LABS: Bedside Glucose 277 mg/dL (70-110)
[2021-05-18] MEDS: Insulin Lispro 100 UNIT/ML INSULN.PEN 6 UNIT SC (11:26)
[2021-05-18 16:00] VITALS: BP 158/58; PULSE 53; RESP 16; TEMP 36; O2SAT 97
[2021-05-18 16:06] LABS: Bedside Glucose 311 mg/dL (70-110)
[2021-05-18] MEDS: Insulin Lispro 100 UNIT/ML INSULN.PEN 7 UNIT SC (17:29)
[2021-05-18 21:17] LABS: Bedside Glucose 349 mg/dL (70-110)
[2021-05-18] MEDS: Atorvastatin Calcium 40 MG Tablet PO (22:33)
[2021-05-18] MEDS: Methenamine Hippurate 1 GM Tablet PO (22:33)
--- NOTE | 2021-05-18 22:45 | NURSING ---
Pt declines hs snack when She administered this hs.
[2021-05-19 05:26] VITALS: BP 137/55; PULSE 59; RESP 16; TEMP 36.1
[2021-05-19] MEDS: Bumetanide 0.5 MG Tablet PO (05:29)
[2021-05-19] MEDS: Levothyroxine 100 MCG Tablet 200 MCG PO (05:29)
[2021-05-19] MEDS: Sotalol Hydrochloride 80 MG Tablet 120 MG PO ×2 (05:30→18:09)
[2021-05-19] MEDS: Fenofibrate 145 MG Tablet PO (05:31)
[2021-05-19] MEDS: Ascorbic Acid 500 MG Tablet 1000 MG PO (05:31)
[2021-05-19] MEDS: Celecoxib 200 MG Capsule PO (05:31)
[2021-05-19] MEDS: Venlafaxine XR 75 MG Capsule PO (05:32)
[2021-05-19] MEDS: Nystatin Powder 15gm Bottle 1 APPLIC TOPICAL ×2 (05:33→18:10)
[2021-05-19] MEDS: Menthol/Lanolin/Calamine/Znox 113 GM Tube 1 APPLIC TOPICAL ×2 (05:34→18:07)
[2021-05-19 05:37] LABS: Hematocrit 29.4 % (37-47); Hemoglobin 9.1 g/dL (12.0-15.0)
[2021-05-19 06:20] LABS: Bedside Glucose 228 mg/dL (70-110)
[2021-05-19] MEDS: Insulin Lispro 100 UNIT/ML INSULN.PEN 30 UNIT SC ×2 (08:49→12:40)
[2021-05-19] MEDS: Iron Polysaccharide Complex 150 MG CAPSULE PO (08:53)
[2021-05-19 10:00] VITALS: RESP 18
[2021-05-19 10:50] LABS: Bedside Glucose 213 mg/dL (70-110)
[2021-05-19 14:59] VITALS: BP 152/58; PULSE 57; RESP 18; TEMP 36.2; O2SAT 97
--- NOTE | 2021-05-19 15:50 | CASEMGMT ---
Social Work Insurance issued a letter of non coverage with LCD 05/21 and D/C 05/22. Pt informed and plans to discharge home alone on 05/22/21. Pt is agreeable to Home Health services with [facility] and [facility]. SW to followup for d/c planning. CHIKI Covarrubias
[2021-05-19 16:56] LABS: Bedside Glucose 84 mg/dL (70-110)
[2021-05-19] MEDS: Methenamine Hippurate 1 GM Tablet PO (20:34)
[2021-05-19] MEDS: Atorvastatin Calcium 40 MG Tablet PO (20:35)
[2021-05-19 21:20] LABS: Bedside Glucose 255 mg/dL (70-110)
[2021-05-20 05:51] VITALS: BP 129/59; PULSE 53; RESP 16; O2SAT 96
[2021-05-20] MEDS: Fenofibrate 145 MG Tablet PO (05:55)
[2021-05-20] MEDS: Rivaroxaban 15 MG Tablet PO (05:55)
[2021-05-20] MEDS: Levothyroxine 100 MCG Tablet 200 MCG PO (05:55)
[2021-05-20] MEDS: Ascorbic Acid 500 MG Tablet 1000 MG PO (05:56)
[2021-05-20] MEDS: Celecoxib 200 MG Capsule PO (05:57)
[2021-05-20] MEDS: Venlafaxine XR 75 MG Capsule PO (05:57)
[2021-05-20] MEDS: Bumetanide 0.5 MG Tablet PO (05:58)
[2021-05-20] MEDS: Nystatin Powder 15gm Bottle 1 APPLIC TOPICAL ×2 (06:00→18:06)
[2021-05-20] MEDS: Menthol/Lanolin/Calamine/Znox 113 GM Tube 1 APPLIC TOPICAL (06:00)
[2021-05-20] MEDS: Insulin Lispro 100 UNIT/ML INSULN.PEN 30 UNIT SC ×2 (08:04→11:35)
[2021-05-20] MEDS: Iron Polysaccharide Complex 150 MG CAPSULE PO (08:07)
--- NOTE | 2021-05-20 10:32 | MDS.RN ---
Information for the mds was obtained from review of the clinical record, interview of resident, staff, and direct observation of resident's care.
[2021-05-20 10:56] LABS: Bedside Glucose 204 mg/dL (70-110)
[2021-05-20 11:26] LABS: Bedside Glucose 216 mg/dL (70-110)
--- NOTE | 2021-05-20 11:48 | NURSING ---
Addendum entered by Eva Boone 05/20/21 14:26: Pre-Cert under medical review additional clinical information Faxed to insurance. Original Note: Awaiting Pre-Cert for RBC Bleed Scan. Pt was scheduled for appt on 05/19/21 For Scan but was cancelled d/t not having Pre-cert Completed. Community Chest Officer Ceci working on Pre-cert at this time. Once pre-cert is complete will make appt for Bleed Scan with Nuclear Medicine.
[2021-05-20 13:22] VITALS: BP 151/60; PULSE 59; RESP 16; TEMP 36.4; O2SAT 97
--- NOTE | 2021-05-20 14:39 | CASEMGMT ---
Social Work The following home health companies were called and unable to take pt insurance: [facility], [facility], [facility], and [facility]. Referral to [facility] and clinicals faxed. Will await determination if they can accept. Pt has needed DME. Discharge Date: 05/22/21 Discharge Disposition: Home alone, Home Health PT/OT/SN/FIRE PROTECTION FABRICATOR CHIKI Covarrubias
[2021-05-20 16:21] LABS: Bedside Glucose 120 mg/dL (70-110)
[2021-05-20] MEDS: Sotalol Hydrochloride 80 MG Tablet 120 MG PO (18:04)
[2021-05-20] MEDS: Insulin Lispro 100 UNIT/ML INSULN.PEN 10 UNIT SC (18:07)
[2021-05-20 18:13] VITALS: BP 167/57; PULSE 57
--- NOTE | 2021-05-20 18:47 | PCM.CONS.GEN ---
Assessment & Plan Assessment/Plan (1) Nail dystrophy: (2) Chronic pain of toe of right foot: (3) Pain in left toe(s): (4) Diabetes mellitus: (5) Diabetes mellitus with diabetic polyneuropathy: PLAN: Debrided toenails 1,2,3,4,5 bilateral using a nail nipper - reduced toenails in length and also bulk. This was done without incident. Reviewed proper diabetic foot care. Patient can follow up with [facility] for further foot care. HPI Consult Data Date of Consult: 05/20/21 HPI Narrative HPI Narrative: MADAN CARRION, is a 70 F who presents with long, thickened, painful toenails. Patient has multiple medical problems including diabetes, she had hip replacement in [place] - had to go to [place] due to all of her medical problems. She is in TCU for rehabilitation. No other pedal compliants. She relates to hx of right foot infection many years ago - has been doing well. [facility] Medical History (Updated 05/20/21 @ 18:[address] Augie Royal, DPJuan) Abrasion Anxiety Arthritis Cardiology follow-up encounter Cataract (lens) fragments in eye following cataract surgery, left eye Cataract (lens) fragments in eye following cataract surgery, right eye CPAP (continuous positive airway pressure) dependence Depression Dietary restriction DVT (deep venous thrombosis) History of atrial fibrillation History of edema History of pain when walking History of stress incontinence History of stress test Hx of echocardiogram Hx of necrotizing fasciitis Hypertension Insulin dependent diabetes mellitus Non-smoker Restless legs Shortness of breath on exertion Thyroid disease Walker as ambulation aid Wears dentures Home Medications aspirin 81 mg PO DAILY@0800 09/07/14 [History Last Taken Unknown] atorvastatin 40 mg PO QHS 09/07/14 [History Last Taken Unknown] fenofibric acid (choline) [Trilipix] 135 mg PO DAILY 09/07/14 [History Last Taken Unknown] sotalol [Betapace] 120 mg PO BID 09/07/14 [History Last Taken Unknown] levothyroxine 200 mcg PO DAILY 04/12/20 [History Last Taken Unknown] ascorbic acid (vitamin C) [Vitamin C] 1 cap PO DAILY 02/17/21 [History Last Taken Unknown] bumetanide 0.5 mg PO DAILY 02/17/21 [History Last Taken Unknown] insulin glargine U-300 conc [T[place] SoloStar U-300 Insulin] 60 unit SUBCUT QHS 02/17/21 [History Last Taken Unknown] insulin lispro 30 unit SUBCUT BREAKFAST 02/17/21 [History Last Taken Unknown] insulin lispro 30 unit SUBCUT QHS 02/17/21 [History Last Taken Unknown] insulin lispro 35 unit SUBCUT DINNER 02/17/21 [History Last Taken Unknown] methenamine hippurate 1 g PO QHS 02/17/21 [History Last Taken Unknown] celecoxib [Celebrex] 200 mg PO DAILY 05/07/21 [History Last Taken Unknown] cephalexin [Keflex] 500 mg PO Q8H 05/07/21 [History Last Taken Unknown] hydromorphone [Dilaudid] 2 mg PO Q4H PRN 05/07/21 [History Last Taken Unknown] ondansetron HCl [Zofran] 4 mg PO Q8H PRN 05/07/21 [History Last Taken Unknown] oxycodone 5 mg PO Q4H PRN 05/07/21 [History Last Taken Unknown] tramadol 50 mg PO Q6H PRN 05/07/21 [History Last Taken Unknown] acetaminophen 1,000 mg PO Q6H PRN PRN #0 tab 05/14/21 [Rx Last Taken Unknown] oxycodone 5 mg PO Q4H PRN PRN 7 Days #42 tab 05/14/21 [Rx Last Taken Unknown] rivaroxaban [Xarelto] 15 mg PO DAILY 21 Days #21 tab 05/14/21 [Rx Last Taken Unknown] sennosides-docusate sodium [Stool Softener-Stimulant Laxat] 2 tab PO BID 30 Days #120 tab 05/14/21 [Rx Last Taken Unknown] venlafaxine 75 mg PO DAILY 30 Days #30 cap 05/14/21 [Rx Last Taken Unknown] Allergy/AdvReac Type Severity Reaction Status Date / Time hydralazine HCl Allergy Other Verified 02/17/21 09:07 [From Apresoline] Surgical History (Updated 05/07/21 @ 21:[address] Alen Vargas MD) History of cardiac catheterization History of cardiac radiofrequency ablation History of quadruple bypass History of total left hip replacement Hx of cholecystectomy Hx of colonoscopy Hx of tubal ligation Social History (Updated 05/07/21 @ 15:20 by Sarika Daniel) household members: none housing: house number of children: 3 Smoking Status: Never smoker Physical Exam Const alert, oriented x3 and no apparent distress Skin Skin Narrative: No open lesions, no erythema, no maloder, no necrosis, no blistering to the foot or ankle bilateral. Toenails 1,2,3,4,5 bilateral elongated, thickened, dystrophic, painful, crumbly, yellow, with subungual debris. CFT < 2 seconds to all toes, no evidence of ischemia to the foot or ankle bilateral. Temperature normal to the foot and ankle bilateral. There is diffuse lower extremity edema/lymphedema - chronic in nature bilateral. No evidence of acute charcot neuroarthropathy bilateral foot and ankle, no m/s POP or pain on ROM to the foot or ankle bilateral. Sensation is noted to be decreased c/w peripheral neuropathy bilateral. Medical Records Data Medical Nutrition Assessment Dietitian: Malnutrition Criteria Met Start: 05/08/21 11:18 Freq: Status: Active Protocol: Document 05/08/21 11:34 BP (Rec: 05/08/21 11:34 BP [id number]) Nutrition Malnutrition Evidence of Malnutrition Exists No Clinical Problem Unintended Weight Gain Etiology related to physical inactivity and fluid retention Signs/Symptoms as evidenced by pt report unintentional wt gain starting post hip replacement d/t immobility, and suspect some wt gain d/t BLE non-pitting edema. Status Active Problem Recommendation Dietitian Recommendations/Changes Will provide Cardiac, CHO controlled diet. Nutrition education as warranted by resident prior to discharge. Lab / Micro Data Result Diagrams: 05/19/21 05:26 05/15/21 05:14 Labs: Laboratory Results - last 24 hr 05/19/21 21:14: POC Glucose 255 H 05/20/21 06:17: POC Glucose 216 H 05/20/21 10:43: POC Glucose 204 H 05/20/21 16:15: POC Glucose 120 H
[2021-05-20 21:31] LABS: Bedside Glucose 168 mg/dL (70-110)
[2021-05-20] MEDS: Atorvastatin Calcium 40 MG Tablet PO (22:14)
[2021-05-20] MEDS: Methenamine Hippurate 1 GM Tablet PO (22:15)
[2021-05-21] MEDS: Levothyroxine 100 MCG Tablet 200 MCG PO (05:42)
[2021-05-21] MEDS: Sotalol Hydrochloride 80 MG Tablet 120 MG PO ×2 (05:44→17:58)
[2021-05-21] MEDS: Rivaroxaban 15 MG Tablet PO (05:45)
[2021-05-21] MEDS: Ascorbic Acid 500 MG Tablet 1000 MG PO (05:45)
[2021-05-21] MEDS: Fenofibrate 145 MG Tablet PO (05:46)
[2021-05-21] MEDS: Celecoxib 200 MG Capsule PO (05:47)
[2021-05-21] MEDS: Bumetanide 0.5 MG Tablet PO (05:47)
[2021-05-21] MEDS: Venlafaxine XR 75 MG Capsule PO (05:47)
[2021-05-21 05:49] LABS: Hematocrit 29.7 % (37-47); Hemoglobin 9.1 g/dL (12.0-15.0)
[2021-05-21] MEDS: Nystatin Powder 15gm Bottle 1 APPLIC TOPICAL ×2 (05:49→17:59)
[2021-05-21 05:50] VITALS: BP 122/55; PULSE 59
[2021-05-21] MEDS: Menthol/Lanolin/Calamine/Znox 113 GM Tube 1 APPLIC TOPICAL ×2 (05:50→17:57)
[2021-05-21 06:25] LABS: Bedside Glucose 73 mg/dL (70-110)
[2021-05-21] MEDS: Iron Polysaccharide Complex 150 MG CAPSULE PO (08:12)
[2021-05-21 10:45] LABS: Bedside Glucose 114 mg/dL (70-110)
[2021-05-21 11:11] LABS: Bedside Glucose 158 mg/dL (70-110)
[2021-05-21] MEDS: Insulin Lispro 100 UNIT/ML INSULN.PEN 10 UNIT SC ×2 (11:57→17:55)
--- NOTE | 2021-05-21 14:52 | CASEMGMT ---
Social Work [facility] unable to accept pt. Referral to [facility] and they are able to accept pt with a start of care on 05/23/21 for home health PT/OT/SN/INVENTORY CONTROL ASSOCIATE. Pt made aware. CHIKI Wong
[2021-05-21 16:00] VITALS: BP 153/70; PULSE 54; RESP 17; TEMP 36.5; O2SAT 98
[2021-05-21 16:20] LABS: Bedside Glucose 151 mg/dL (70-110)
[2021-05-21] MEDS: Senna/Docusate Sodium 1 Tablet 2 TABLET PO (18:01)
[2021-05-21] MEDS: Methenamine Hippurate 1 GM Tablet PO (20:54)
[2021-05-21] MEDS: Atorvastatin Calcium 40 MG Tablet PO (20:55)
[2021-05-21 21:41] LABS: Bedside Glucose 213 mg/dL (70-110)
[2021-05-22 05:44] LABS: Absolute Lymphocyte Count 0.55 X10^3/uL (0.83-4.51); Absolute Neutrophil Count 2.5 X10^3/uL (2.0-7.7); Basophil# 0.07 X10^3/uL; Basophil% 1.7 % (0-1); Eosinophil# 0.46 X10^3/uL; Hematocrit 29.9 % (37-47); Lymphocyte # 0.55 X10^3/ul (0.83-4.51); Lymphocyte % 13.1 % (19-41); Mean Corp Hgb Conc 30.1 g/dL (32-36); Mean Corpuscular Hgb 28.3 pg (27.0-32.0); Mean Platelet Vol. 9.9 fl (6.2-12.0); Monocyte# 0.61 X10^3/uL; Monocyte% 14.6 % (0-10); NRBC Flagged by Analyzer 0 % (0-5); Neutrophil # 2.49 X10^3/uL (2.7-7.7); Neutrophil % 59.4 % (47-70); POSITIVE DIFFERENTIAL YES; Platelet Count 200 K/mm3 (150-450); RBC Distribution Width CV 15.9 % (11.6-14.6); RBC Distribution Width SD 55.1 fl (35.1-43.9); Red Blood Count 3.18 M/mm3 (4.2-5.4); White Blood Count 4.2 K/mm3 (4.4-11.0)
[2021-05-22] MEDS: Bumetanide 0.5 MG Tablet PO (05:53)
[2021-05-22] MEDS: Sotalol Hydrochloride 80 MG Tablet 120 MG PO (05:53)
[2021-05-22] MEDS: Celecoxib 200 MG Capsule PO (05:53)
[2021-05-22] MEDS: Venlafaxine XR 75 MG Capsule PO (05:53)
[2021-05-22] MEDS: Menthol/Lanolin/Calamine/Znox 113 GM Tube 1 APPLIC TOPICAL (05:54)
[2021-05-22] MEDS: Nystatin Powder 15gm Bottle 1 APPLIC TOPICAL (05:55)
[2021-05-22] MEDS: Levothyroxine 100 MCG Tablet 200 MCG PO (05:56)
[2021-05-22] MEDS: Ascorbic Acid 500 MG Tablet 1000 MG PO (05:56)
[2021-05-22] MEDS: Fenofibrate 145 MG Tablet PO (05:56)
[2021-05-22] MEDS: Rivaroxaban 15 MG Tablet PO (05:57)
[2021-05-22 06:01] LABS: Differential Indicated SCAN CRITERIA MET
[2021-05-22 06:16] LABS: Bedside Glucose 172 mg/dL (70-110)
[2021-05-22 06:23] LABS: Anion Gap 5 (5-15); BUN 27 mg/dL (7-18); Calcium,Total 8.1 mg/dL (8.5-10.1); Chloride 109 mmol/L (98-107); Creatinine, Serum 0.97 mg/dL (0.55-1.02); EST Glomerular Filtration Rate 61 mL/min (>60); Est Glom Filt Rate - Afr Amer 73 mL/min (>60); Estimated Creatinine Clearance 52.48 ml/min; Glucose 197 mg/dL (74-106); Potassium 4.1 mmol/L (3.5-5.1); Sodium Level 139 mmol/L (136-145)
[2021-05-22] MEDS: Insulin Lispro 100 UNIT/ML INSULN.PEN 10 UNIT SC (08:17)
[2021-05-22] MEDS: Iron Polysaccharide Complex 150 MG CAPSULE PO (08:18)
--- NOTE | 2021-05-22 10:36 | NURSING ---
Pt Discharge teaching completed pt voiced understanding and did not have any questions at this time.
[2021-05-22 11:46] VITALS: BP 150/64; PULSE 55; RESP 18; TEMP 36.6; O2SAT 94
[2021-05-22 12:29] LABS: Pathologist Review Reviewed
[2021-05-22 13:06] LABS: Bedside Glucose 138 mg/dL (70-110)
== END 2021-05-22 11:50 | disposition home health service (06) | DRG 561 ==
PROVIDERS: Internal Medicine; Admitting Provider Family Medicine Geriatric Medicine; Visit Provider Family Medicine Geriatric Medicine
DX: Z47.1 Aftercare following joint replacement surgery (principal); Z96.642 Presence of left artificial hip joint; I10 Essential (primary) hypertension; F41.9 Anxiety disorder, unspecified; I48.91 Unspecified atrial fibrillation; N39.3 Stress incontinence (female) (male); N32.81 Overactive bladder; I25.10 Atherosclerotic heart disease of native coronary artery without angina pectoris; E11.9 Type 2 diabetes mellitus without complications; M16.12 Unilateral primary osteoarthritis, left hip; E78.5 Hyperlipidemia, unspecified; E03.9 Hypothyroidism, unspecified; R60.9 Edema, unspecified; L60.3 Nail dystrophy; G89.29 Other chronic pain; M79.675 Pain in left toe(s); D64.9 Anemia, unspecified; E11.42 Type 2 diabetes mellitus with diabetic polyneuropathy; Z86.718 Personal history of other venous thrombosis and embolism; Z79.4 Long term (current) use of insulin; Z79.82 Long term (current) use of aspirin; Z79.01 Long term (current) use of anticoagulants; Z79.899 Other long term (current) drug therapy; Z95.1 Presence of aortocoronary bypass graft
CPT/HCPCS: 36415; 36430; 80048; 82274; 82962; 85014; 85018; 85025; 86850; 86900; 86901; 86920; 86922; 96372; 97110; 97116; 97162; 97166; 97530; 97535; 97802; J7040; P9016; A4216; J1940

== ENCOUNTER → 2021-05-08 12:57 | Outpatient (CLI) | payer MEDICARE, SELFPAY ==
[2021-05-07 15:07] VITALS: BMI 113.2
[2021-05-08] VITALS (7 sets, daily range): BP systolic 105–133; BP diastolic 36–55; PULSE 48–57; RESP 16; TEMP 35.8–36.5; O2SAT 96–100
== END ==
PROVIDERS: Referring Provider Internal Medicine; Visit Provider Internal Medicine
DX: D64.9 Anemia, unspecified (principal)
CPT/HCPCS: 36415; 36430; 86850; 86900; 86901; 86920; 86922; J7040; P9016; A4216

== ENCOUNTER → 2021-05-16 08:56 | Outpatient (CLI) | payer MEDICARE, SELFPAY ==
[2021-05-16] VITALS (7 sets, daily range): BP systolic 133–170; BP diastolic 49–66; PULSE 52–63; RESP 16–20; TEMP 36.2–36.6; O2SAT 95–100
[2021-05-16] MEDS: 0.9% NaCl Peripheral Flush Adult/Peds IV ×2 (09:13→14:36)
[2021-05-16] MEDS: Furosemide 20 MG/2 ML VIAL IV (11:37)
[2021-05-16 12:01] LABS: Bedside Glucose 271 mg/dL (70-110)
== END ==
PROVIDERS: Referring Provider Family Medicine Geriatric Medicine; Visit Provider Family Medicine Geriatric Medicine
DX: D64.9 Anemia, unspecified (principal); Z79.899 Other long term (current) drug therapy
CPT/HCPCS: 36415; 36430; 82962; 86850; 86900; 86901; 86920; 86922; 96372; J7040; P9016; A4216; J1940

== ENCOUNTER 2021-05-29 21:55 | Inpatient (IN) | payer MEDICARE, SELFPAY ==
[2021-05-29 21:56] VITALS: PULSE 98; RESP 24; TEMP 37.8; O2SAT 97; BMI 46.9
[2021-05-29 22:01] VITALS: BP 190/87
--- NOTE | 2021-05-29 22:45 | EKG12_ITS ---
Test Reason : NAUSEA Blood Pressure : / mmHG Vent. Rate : 105 BPM Atrial Rate : 108 BPM P-R Int : 000 ms QRS Dur : 088 ms QT Int : 302 ms P-R-T Axes : 000 -01 136 degrees QTc Int : 399 ms Atrial fibrillation with premature ventricular or aberrantly conducted complexes Nonspecific ST and T wave abnormality Abnormal ECG Confirmed by OLRI MARINELLI, OLESYA ([id number]), editor producer ANITA LOYD ([id number]) on 06/03/2021 8:22:31 AM Referred By: TAJ Confirmed By:SABA SANDOVAL MD
--- NOTE | 2021-05-29 22:46 | CT_ITS ---
STUDY: CT ABDOMEN AND PELVIS WITH CONTRAST REASON FOR EXAM: Female, 70 years old. abd pain RADIATION DOSAGE (If Supplied By Facility): CTDIvol = ( 26.73 ) mGy, DLP = ( 1751.32 ) mGycm TECHNIQUE: Transaxial images were obtained from the dome of the diaphragm to the symphysis pubis without oral contrast. IV 100mL Isovue-300 was administered. Sagittal and coronal images were reconstructed. Individualized dose optimization techniques were used for this CT. COMPARISON: 04/17/2020 FINDINGS: Atelectasis/scarring within the lungs. Pneumatocele RIGHT lower lobe. There is a small LEFT pleural effusion. LEFT lower lobe atelectasis/infiltrate. Pleural-based 2.2 cm nodularity not seen on prior study. Cardiomegaly. Coronary artery calcifications. There is hepatomegaly with diffuse hepatic enlargement. The liver measures 20 cm. Normal gallbladder and extrahepatic biliary system. Splenomegaly 16 cm. Normal pancreas. Normal bilateral adrenal glands. Nonspecific bilateral perinephric stranding. There is no hydronephrosis identified. Otherwise kidneys appear unremarkable. Evaluation of bowel limited by lack of oral contrast material. There is diverticulosis. There is mild stranding adjacent to a segment of the descending colon in the LEFT lower quadrant. There is no free air identified. No dilated loops of bowel by CT criteria. Normal colon. The appendix is visualized and appears normal. There is diffuse atherosclerotic calcification of the abdominal aorta, without a demonstrated aneurysm. Normal inferior vena cava. Nonspecific subcentimeter short axis mesenteric and retroperitoneal lymph nodes. Normal urinary bladder. There is a small umbilical hernia containing fat. Small fat-containing ventral abdominal wall hernia. There is a area of soft tissue thickening involving the RIGHT ventral abdominal wall just deep to the skin surface measuring 6.2 x 2.1 x 4.5 cm. This appears similar to prior examination. There are diffuse degenerative changes of the visualized lumbar spine. At the level T10 on the LEFT within the canal there is a 1.5 x 1 x 0.5 cm ossific structure. This causes moderate narrowing of the canal and mass effect on the adjacent cord. This appears similar to prior study. Scoliotic curvature to the spine. LEFT hip arthroplasty causes streak artifact within the pelvis. CT/Abdomen/Pelvis W IV Cont ONLY IMPRESSION: Diverticulosis. There is some mild stranding adjacent to a small segment of ascending colon. Findings could represent diverticulitis. There is no free air identified. No rim-enhancing fluid collections. Small LEFT pleural effusion. LEFT lower lobe atelectasis/infiltrate. Pleural-based nodularity LEFT lower lobe. Recommend a follow-up CT scan of the chest 4-6 weeks to ensure resolution. Neoplastic process cannot be totally excluded. Hepatosplenomegaly. Again noted RIGHT anterior abdominal wall subcutaneous soft tissue thickening. Similar to prior study. Correlate clinically. Unknown clinical significance on CT scan. Recommend correlation to exclude any skin neoplastic process. Again noted ossific structure within the spinal canal at the level T10. Causes canal narrowing and mass effect on the adjacent spinal cord. Correlate with patient''s symptomology. MRI with and without IV contrast may be of benefit in the appropriate clinical setting. Other findings as discussed above. Electronically Signed: Roger Becker MD at 0:53 EDT Tel , Service support ,
--- NOTE | 2021-05-29 22:48 | EDS_ITS ---
HPI History of Present Illness Chief Complaint: Nausea/Vomiting Informant: patient Narrative Narrative: Patient presents with nausea vomiting and dyspnea. She states that the nausea started Wednesday. She placed her finger down her throat to make her vomit thinking that would solve it. She vomited a small amount. She has had a couple episodes of vomiting since. She states sometimes she can get a little food or water in but not much. The pain is mostly in the upper abdomen. It tends to be over in the left. Nothing really makes it better or worse. She denies diarrhea. She had problems with dropping hemoglobins when she was in rehab recently. However, insurance refused work-up at that time. She denies black or bloody stools. She is on Xarelto for history of A. fib. Patient states she started to feel little bit short of breath today. She edd buck told EMS she had chest pain. She told me she does not have chest pain if she takes a real deep breath she hurts more in her abdomen a little bit. It is not in her chest. Again, she is taking her Xarelto. Her incision from surgery is not hurting. [facility] Medical History Abrasion Anxiety Arthritis Cardiology follow-up encounter Cataract (lens) fragments in eye following cataract surgery, left eye Cataract (lens) fragments in eye following cataract surgery, right eye CPAP (continuous positive airway pressure) dependence Depression Dietary restriction DVT (deep venous thrombosis) History of atrial fibrillation History of edema History of pain when walking History of stress incontinence History of stress test Hx of echocardiogram Hx of necrotizing fasciitis Hypertension Insulin dependent diabetes mellitus Non-smoker Restless legs Shortness of breath on exertion Thyroid disease Walker as ambulation aid Wears dentures Home Medications aspirin 81 mg PO DAILY@0800 09/07/14 [History Last Taken Unknown] atorvastatin 40 mg PO QHS 09/07/14 [History Last Taken Unknown] fenofibric acid (choline) [Trilipix] 135 mg PO DAILY 09/07/14 [History Last Taken Unknown] sotalol [Betapace] 120 mg PO BID 09/07/14 [History Last Taken Unknown] levothyroxine 200 mcg PO DAILY 04/12/20 [History Last Taken Unknown] ascorbic acid (vitamin C) [Vitamin C] 1 cap PO DAILY 02/17/21 [History Last Taken Unknown] bumetanide 0.5 mg PO DAILY 02/17/21 [History Last Taken Unknown] insulin glargine U-300 conc [[place] BrowningoStar U-300 Insulin] 60 unit SUBCUT QHS 02/17/21 [History Last Taken Unknown] insulin lispro 30 unit SUBCUT BREAKFAST 02/17/21 [History Last Taken Unknown] insulin lispro 30 unit SUBCUT QHS 02/17/21 [History Last Taken Unknown] insulin lispro 35 unit SUBCUT DINNER 02/17/21 [History Last Taken Unknown] methenamine hippurate 1 g PO QHS 02/17/21 [History Last Taken Unknown] acetaminophen 1,000 mg PO Q6H PRN PRN #0 tab 05/14/21 [Rx Last Taken Unknown] oxycodone 5 mg PO Q4H PRN PRN 7 Days #42 tab 05/14/21 [Rx Last Taken Unknown] rivaroxaban [Xarelto] 15 mg PO DAILY 21 Days #21 tab 05/14/21 [Rx Last Taken Unknown] Allergy/AdvReac Type Severity Reaction Status Date / Time hydralazine HCl Allergy Other Verified 02/17/21 09:07 [From Apresoline] Surgical History History of cardiac catheterization History of cardiac radiofrequency ablation History of hip replacement History of quadruple bypass History of total left hip replacement Hx of cholecystectomy Hx of colonoscopy Hx of tubal ligation Social History household members: none housing: house number of children: 3 Smoking Status: Never smoker ROS ROS ED Constitutional Constitutional ED: Reports fever(s) and subjective Eyes Eyes: Denies change in vision ENT ENT ED: Denies sore throat Cardiovascular Cardiovascular: Denies chest pain or palpitations Respiratory/Chest Respiratory/Chest: Reports cough and dyspnea; Denies dyspnea on exertion or sputum Gastrointestinal Gastrointestinal: Reports abdominal pain, nausea and vomiting; Denies constipation, diarrhea or melena Genitourinary Genitourinary ED: Denies dysuria Musculoskeletal Musculoskeletal: Denies back pain Integumentary Denies rash Neurologic Neurologic: Denies headache(s), paresthesias or weakness Endocrine Endocrinology: Denies polydipsia or polyuria Allergic/Immunologic Allergic/Immunologic ED: Denies urticaria EXAM Physical Exam Const Vital Signs: 05/29/21 21:56 05/29/21 22:01 05/30/21 00:00 Temperature 100.0 F H Temperature Source Oral Pulse Rate 98 105 H Respiratory Rate 24 H 19 H Blood Pressure 190/87 H Blood Pressure Mean 121 Pulse Ox 97 96 Oxygen Delivery Method Room Air Room Air 05/30/21 01:29 Temperature Temperature Source Pulse Rate Respiratory Rate Blood Pressure 179/74 H Blood Pressure Mean 109 Pulse Ox Oxygen Delivery Method Positive well nourished, well developed and obese Constitutional Narrative: Patient is nontoxic. However, she does look tired. General Appearance ED: well developed, NAD and pallor Nutritional Appearance: obese HEENT Reports moist mucous membranes Eyes EOMs intact bilaterally Eyes Narrative: Mildly pale conjunctive a. General Eye ED: Yes pale conjunctiva Neck supple Resp normal respiratory effort and clear to auscultation bilaterally Effort and Inspection: pain with movement Cardio regular rate Rate: other Other Details: Patient has irregular rhythm and sounds to be in atrial fibrillation. She has a history of this. GI normal to inspection, nondistended, normoactive bowel sounds GI Narrative: Abdomen is soft. Bowel sounds sound normal. There is obesity. Its difficult to tell exactly where she is tender but it is more toward the left side of her abdomen. Palpation: soft Extremity normal to inspection Extremity Narrative: She has chronic edema with wraps. This is not new or different. I will need help to look at the incision on her left hip. She is not mobile enough for me to have her roll over and look at this. Neuro oriented x3 Sensorium / Orientation: alert Psych mental status grossly normal Skin no rashes or lesions noted Skin Narrative: She does have some mild pallor General Skin Exam: pallor MDM MDM MDM Narrative Medical decision making narrative: Patient's results do show an elevated white count. She did have a low-grade temperature here. Electrolytes showed mild elevation in creatinine at 1.28. Elevation of LFTs. But she has no upper abdominal pain for me. She states is all in the lower abdomen. Her BNP is elevated. However her x-ray does not show CHF and she is not hypoxic. Lipase is negative. Troponin is negative. Urine is a good clean-catch and it looks grossly infected and has greater than 100 white cells. She is treated for this. Covid is negative. CT shows a lot of chronic changes but no marked acute abnormalities. There is a slight left lower lobe atelectasis or possible infiltrate. Small left effusion. She has very slight stranding to a very small segment of a sending colon. This could represent diverticulitis. Her x-ray is possibly suspicious for pneumonia. Patient is treated with Rocephin here initially. Because of her overall level of health, weakness, nausea vomiting and increased difficulty getting around at home she will be admitted. I discussed case with the hospitalist. Patient is given antibiotics. However, her blood pressure is normal here. Even though she has signs of infection, positive sirs criteria, her lactate is 2. Is not greater than. I do not think this patient would benefit from high dose fluids. In fact, I think this patient could be hurt by them. Certainly if her blood pressure clinical condition changes that might change also. Lab Data Attestation: I reviewed the patient's lab results. Labs: Laboratory Results - last 24 hr 05/29/21 05/29/21 05/29/21 21:48 21:48 21:48 WBC 13.3 H RBC 4.10 L Hgb 11.5 L Hct 37.3 MCV 91.0 MCH 28.0 MCHC 30.8 L RDW Std Deviation 53.1 H RDW Coeff of Kevyn 15.8 H Plt Count 238 MPV 11.4 Immature Gran % (Auto) 1.600 H Neut % (Auto) 82.0 H Lymph % (Auto) 5.2 L [place] % (Auto) 10.3 H Eos % (Auto) 0.4 Baso % (Auto) 0.5 Absolute Neuts (auto) 10.9 H Absolute Lymphs (auto) 0.69 L Nucleated RBC % 0 Sodium 132 L Potassium 4.0 Chloride 101 Carbon Dioxide 22.0 Anion Gap 9 BUN 24 H Creatinine 1.28 H Estim Creat Clear Calc 41.25 Est GFR (MDRD) Af Amer 53 L Est GFR (MDRD) Non-Af 44 L BUN/Creatinine Ratio 18.8 Glucose 448 H Lactic Acid Calcium 9.3 Total Bilirubin 2.60 H AST 21 ALT 15 Alkaline Phosphatase 127 H Troponin I High Sens 31 B-Natriuretic Peptide 917.6 H Total Protein 8.5 H Albumin 3.6 Globulin 4.9 H Albumin/Globulin Ratio 0.7 L Lipase 76 Urine Color Urine Clarity Urine pH Ur Specific [place] Urine Protein Urine Glucose (UA) Urine Ketones Urine Occult Blood Urine Nitrite Urine Bilirubin Urine Urobilinogen Ur Leukocyte Esterase Urine RBC Urine WBC Ur Squamous Epith Cells Urine Bacteria Urine Mucus 05/29/21 05/30/21 23:02 00:20 WBC RBC Hgb Hct MCV MCH MCHC RDW Std Deviation RDW Coeff of Kevyn Plt Count MPV Immature Gran % (Auto) Neut % (Auto) Lymph % (Auto) [place] % (Auto) Eos % (Auto) Baso % (Auto) Absolute Neuts (auto) Absolute Lymphs (auto) Nucleated RBC % Sodium Potassium Chloride Carbon Dioxide Anion Gap BUN Creatinine Estim Creat Clear Calc Est GFR (MDRD) Af Amer Est GFR (MDRD) Non-Af BUN/Creatinine Ratio Glucose Lactic Acid 2.0 Calcium Total Bilirubin AST ALT Alkaline Phosphatase Troponin I High Sens B-Natriuretic Peptide Total Protein Albumin Globulin Albumin/Globulin Ratio Lipase Urine Color Yellow Urine Clarity Cloudy Urine pH 7.0 Ur Specific [place] 1.010 Urine Protein 100 H Urine Glucose (UA) 1000 H Urine Ketones 50 H Urine Occult Blood 50 H Urine Nitrite Negative Urine Bilirubin Negative Urine Urobilinogen Normal Ur Leukocyte Esterase 500 H Urine RBC 0-5 SEEN Urine WBC >100 SEEN Ur Squamous Epith Cells 0 SEEN Urine Bacteria 1+ Urine Mucus 0 SEEN Radiography Diagnostic Testing: Radiology Impression Abdomen/Pelvis CT 05/29/21 22:46 IMPRESSION: Diverticulosis. There is some mild stranding adjacent to a small segment of ascending colon. Findings could represent diverticulitis. There is no free air identified. No rim-enhancing fluid collections. Small LEFT pleural effusion. LEFT lower lobe atelectasis/infiltrate. Pleural-based nodularity LEFT lower lobe. Recommend a follow-up CT scan of the chest 4-6 weeks to ensure resolution. Neoplastic process cannot be totally excluded. Hepatosplenomegaly. Again noted RIGHT anterior abdominal wall subcutaneous soft tissue thickening. Similar to prior study. Correlate clinically. Unknown clinical significance on CT scan. Recommend correlation to exclude any skin neoplastic process. Again noted ossific structure within the spinal canal at the level T10. Causes canal narrowing and mass effect on the adjacent spinal cord. Correlate with patient''s symptomology. MRI with and without IV contrast may be of benefit in the appropriate clinical setting. Other findings as discussed above. Electronically Signed: Roger Becker MD at 0:53 EDT Tel , Service support , Chest X-Ray 05/30/21 00:21 IMPRESSION: Right lateral midlung and left peripheral lower lung airspace opacities concerning for pneumonia, compatible with atypical viral pneumonia in the appropriate setting. Cardiomegaly without florid edema. at 0134 Reported and signed by: Rohit Sandy MD Electronically Signed: Rohit Sandy MD at 1:32 EDT Tel , Service support , Discharge Plan Triage Chief Complaint: Nausea/Vomiting Other Complaint: Shortness of Breath ED Provider: Mundo Petersen Dx/Rx/DC Orders Clinical Impression: Acute UTI, Nausea & vomiting, Generalized weakness Prescriptions: No Action atorvastatin 40 MG tablet 40 mg PO QHS RF: 0 sotalol [Betapace] 120 MG tablet 120 mg PO BID RF: 0 aspirin 81 MG tablet,chewable 81 mg PO DAILY@0800 RF: 0 fenofibric acid (choline) [Trilipix] 135 MG capsule,delayed release(DR/EC) 135 mg PO DAILY RF: 0 levothyroxine 175 MCG tablet 200 mcg PO DAILY RF: 0 methenamine hippurate 1 gram Tablet 1 g PO QHS RF: 0 bumetanide 0.5 mg Tablet 0.5 mg PO DAILY RF: 0 insulin lispro 100 unit/mL Solution 30 unit SUBCUT BREAKFAST RF: 0 insulin lispro 100 unit/mL Solution 35 unit SUBCUT DINNER RF: 0 insulin lispro 100 unit/mL Solution 30 unit SUBCUT QHS RF: 0 Vitamin C 1,000 mg Capsule, Extended Release 1 cap PO DAILY RF: 0 [place]o SoloStar U-300 Insulin 300 unit/mL (1.5 mL) Insulin Pen 60 unit SUBCUT QHS RF: 0 oxycodone 5 mg Tablet 5 mg PO Q4H PRN PRN (Reason: Pain Score 6-10) 7 Days Qty: 42 RF: 0 Xarelto 15 mg Tablet 15 mg PO DAILY 21 Days Qty: 21 RF: 0 acetaminophen 500 mg Tablet 1,000 mg PO Q6H PRN PRN (Reason: Pain Score 1-5) Qty: 0 RF: 0 Primary Care Provider: Maggi Chicas Referrals: Maggi Chicas, [Primary Care Provider] - Disposition Disposition: Acute Care Hospital [facility]
[2021-05-29] MEDS: Morphine 4 MG/ML Syringe IV (23:01)
[2021-05-29] MEDS: Ondansetron 4 MG/2 ML Vial IV (23:01)
[2021-05-29 23:17] LABS: Absolute Lymphocyte Count 0.69 X10^3/uL (0.83-4.51); Absolute Neutrophil Count 10.9 X10^3/uL (2.0-7.7); Basophil# 0.06 X10^3/uL; Basophil% 0.5 % (0-1); Eosinophil# 0.05 X10^3/uL; Eosinophils% 0.4 % (0-5); Hematocrit 37.3 % (37-47); Hemoglobin 11.5 g/dL (12.0-15.0); Lymphocyte # 0.69 X10^3/ul (0.83-4.51); Lymphocyte % 5.2 % (19-41); Mean Corp Hgb Conc 30.8 g/dL (32-36); Mean Platelet Vol. 11.4 fl (6.2-12.0); Monocyte# 1.37 X10^3/uL; Monocyte% 10.3 % (0-10); NRBC Flagged by Analyzer 0 % (0-5); Neutrophil # 10.88 X10^3/uL (2.7-7.7); Platelet Count 238 K/mm3 (150-450); RBC Distribution Width CV 15.8 % (11.6-14.6); RBC Distribution Width SD 53.1 fl (35.1-43.9); White Blood Count 13.3 K/mm3 (4.4-11.0)
[2021-05-29 23:41] LABS: ALB/GLOB Ratio 0.7 RATIO (0.9-2.4); AST(SGOT) 21 U/L (15-37); Alanine Aminotransfer ALT/SGPT 15 U/L (13-56); Albumin, Serum 3.6 g/dL (3.2-5.0); Alkaline Phosphatase 127 U/L (45-117); Anion Gap 9 (5-15); BUN 24 mg/dL (7-18); BUN/Creat Ratio 18.8 RATIO (10-20); Calcium,Total 9.3 mg/dL (8.5-10.1); Chloride 101 mmol/L (98-107); Creatinine, Serum 1.28 mg/dL (0.55-1.02); EST Glomerular Filtration Rate 44 mL/min (>60); Est Glom Filt Rate - Afr Amer 53 mL/min (>60); Estimated Creatinine Clearance 41.25 ml/min; Globulin 4.9 g/dL (2.2-4.2); Glucose 448 mg/dL (74-106); Lipase 76 U/L (73-393); Protein, Total 8.5 g/dL (6.4-8.2); Sodium Level 132 mmol/L (136-145); Troponin-I HS 31 pg/mL (3.0-54.0)
[2021-05-30] VITALS (10 sets, daily range): BP systolic 141–179; BP diastolic 64–77; PULSE 80–110; RESP 15–20; TEMP 36.6–37.3; O2SAT 94–98; BMI 47.1
[2021-05-30] MEDS: Acetaminophen 500 MG Tablet 1000 MG PO ×2 (00:06→07:59)
--- NOTE | 2021-05-30 00:21 | RAD_ITS ---
HISTORY: SOB EXAMINATION/TECHNIQUE: XR Chest 1 View: COMPARISON: September 07, 2014 FINDINGS: LINES/DEVICES: None. LUNGS: Small patchy peripheral airspace opacities in the right midlung and left lung base. Unremarkable interstitium. No effusion. No pneumothorax. MEDIASTINUM: Cardiomegaly. Aortic atherosclersosis. MUSCULOSKELETAL: No acute osseous finding. Sternotomy wires are midline and intact. RAD/Chest 1 View (Portable) IMPRESSION: Right lateral midlung and left peripheral lower lung airspace opacities concerning for pneumonia, compatible with atypical viral pneumonia in the appropriate setting. Cardiomegaly without florid edema. at 0134 Reported and signed by: Rohit Sandy MD Electronically Signed: Rohit Sandy MD at 1:32 EDT Tel , Service support ,
[2021-05-30 00:32] LABS: BNP,B-Type NATRIURETIC PEPTIDE 917.6 pg/mL (0-100)
[2021-05-30 00:33] LABS: Mucous, Urine 0 SEEN /hpf (<or=2+); Squamous Epithelial Cells - UA 0 SEEN /hpf (5-10)
[2021-05-30 00:34] LABS: Color, Urine Yellow (Yellow); Glucose, Dipstick 1000 mg/dl (Normal); Ketone-Dipstick 50 mg/dl (Negative); Leukocyte Esterase-Dipstick 500 /ul (Negative); Nitrite-Dipstick Negative (Negative); Occult Blood-Urine 50 /ul (Negative); Protein-Dipstick 100 mg/dl (Negative); Urine Bilirubin Dipstick Negative (Negative); Urine Clarity Cloudy (Clear); Urine Urobilinogen Normal (Normal)
[2021-05-30 00:56] LABS: Bacteria 1+ /hpf (None Seen); White Blood Cells >100 SEEN /hpf (0-5)
[2021-05-30 00:58] LABS: Red Blood Cells-Urine 0-5 SEEN /hpf (0-5)
[2021-05-30] MEDS: Ceftriaxone 1 GM/50 ML BAG IV (01:28)
--- NOTE | 2021-05-30 02:08 | PCM.HP.STD ---
HPI - General General Date of Admission: 05/30/21 HPI Narrative MADAN CARRION, is a 70 F with a significant history of CAD status post quadruple bypass; morbid obesity; atrial fibrillation on Xarelto; diabetes mellitus who recently had left hip replacement at [facility] in [place] ( April 302020) and subsequent rehabilitation at the transitional care unit at [facility] ([facility]) around May 07, 2021 who present with substernal chest pain and left lower quadrant pain. The pain at both locations increases with taking a deep breath and improved with shallow breathing. She rated the pain at both places as 5 out of 10. Associated with her symptoms is nausea and vomiting. Initially when ther symptoms started she thought that making herself vomit will make her symptoms go away. However even after vomiting his symptoms persisted. Her symptoms started a day before presentation. Associated with her symptom is progressively worsening weakness. COVID-19 vaccination status: Has not been vaccinated COVID-19 infection status: Denies knowledge of COVID-19 infection. [facility] Medical History Abrasion Anxiety Arthritis Cardiology follow-up encounter Cataract (lens) fragments in eye following cataract surgery, left eye Cataract (lens) fragments in eye following cataract surgery, right eye CPAP (continuous positive airway pressure) dependence Depression Dietary restriction DVT (deep venous thrombosis) History of atrial fibrillation History of edema History of pain when walking History of stress incontinence History of stress test Hx of echocardiogram Hx of necrotizing fasciitis Hypertension Insulin dependent diabetes mellitus Non-smoker Restless legs Shortness of breath on exertion Thyroid disease Walker as ambulation aid Wears dentures Home Medications aspirin 81 mg PO DAILY@0800 09/07/14 [History Last Taken 05/28/21] atorvastatin 40 mg PO QHS 09/07/14 [History Last Taken 05/28/21] fenofibric acid (choline) [Trilipix] 135 mg PO DAILY 09/07/14 [History Last Taken 05/28/21] sotalol [Betapace] 120 mg PO BID 09/07/14 [History Last Taken 05/28/21] levothyroxine 200 mcg PO DAILY 04/12/20 [History Last Taken 05/28/21] ascorbic acid (vitamin C) [Vitamin C] 1 cap PO DAILY 02/17/21 [History Last Taken 05/28/21] bumetanide 0.5 mg PO DAILY 02/17/21 [History Last Taken 05/28/21] insulin glargine U-300 conc [Touloren BrowningoStar U-300 Insulin] 60 unit SUBCUT QHS 02/17/21 [History Last Taken 05/28/21] insulin lispro 30 unit SUBCUT BREAKFAST 02/17/21 [History Last Taken 05/28/21] insulin lispro 35 unit SUBCUT DINNER 02/17/21 [History Last Taken 05/28/21] methenamine hippurate 1 g PO QHS 02/17/21 [History Last Taken 05/28/21] acetaminophen 1,000 mg PO Q6H PRN PRN #0 tab 05/14/21 [Rx Last Taken Unknown] oxycodone 5 mg PO Q4H PRN PRN 7 Days #42 tab 05/14/21 [Rx Last Taken Unknown] insulin lispro 35 unit SUBCUT LUNCH 05/30/21 [History Last Taken 05/28/21] rivaroxaban [Xarelto] 15 mg PO DAILY 05/30/21 [History Last Taken 05/28/21] Allergy/AdvReac Type Severity Reaction Status Date / Time hydralazine HCl Allergy Other Verified 02/17/21 09:07 [From Apresoline] Family History (Updated 05/30/21 @ 02:[address] Tyrese Byrd MD) Other Diabetes Heart disease Surgical History History of cardiac catheterization History of cardiac radiofrequency ablation History of hip replacement History of quadruple bypass History of total left hip replacement Hx of cholecystectomy Hx of colonoscopy Hx of tubal ligation Social History household members: none housing: house number of children: 3 Smoking Status: Never smoker ROS ROS Narrative Constitutional: Reports anorexia. Reports subjective fever and chills. Denies change in weight Eyes: Denies blurry vision, change in eye color, change in vision, discharge from eye(s), double vision, erythema, eye pain, loss of vision or other HEENT: Denies abnormal hearing, dysphagia, ear pain, epistaxis, headache(s), hearing loss, nasal congestion, nasal discharge, post nasal drip, sinus pressure, sore throat or other Cardiovascular: Reports chest pain. Denies orthopnea and paroxysmal nocturnal dyspnea Respiratory/Chest: Reports shortness of breath. Denies cough, excessive phlegm production, or wheezing Gastrointestinal: Reports abdominal pain, nausea and vomiting. Denies coffee ground emesis, constipation, diarrhea, dyspepsia, hematemesis, hematochezia, loose stools, melena, or other Genitourinary: Reports increased urinary frequency. Denies burning urination, difficulty urinating, dysuria, hematuria, urinary hesitancy, urinary incontinence, urinary urgency or other Musculoskeletal: Reports left hip pain. Denies myalgias, neck pain or other Neurologic: Denies abnormal gait, abnormal speech, confusion, disequilibrium, dizziness, focal weakness, headache(s), numbness, paresthesias, seizure-like activity, seizures, syncope, tingling, tremor(s) or other Psychiatric: Denies anxiety, depression, homicidal ideation, suicidal ideation or other Endocrinology: Denies change in body appearance, cold intolerance, excessive sweating, heat intolerance, polydipsia, polyuria or other Hematologic/Lymphatic: Denies anemia, easy bleeding, easy bruising, lymphadenopathy or other Integumentary: Denies rashes Allergic/Immunologic: Denies rhinitis, hives, eczema, asthma or other Vital Signs Vital Signs Vital Signs: 05/29/21 21:56 05/29/21 22:01 05/30/21 00:00 Temperature 100.0 F H Temperature Source Oral Pulse Rate 98 105 H Respiratory Rate 24 H 19 H Blood Pressure 190/87 H Blood Pressure Mean 121 Pulse Ox 97 96 Oxygen Delivery Method Room Air Room Air 05/30/21 01:29 Temperature Temperature Source Pulse Rate Respiratory Rate Blood Pressure 179/74 H Blood Pressure Mean 109 Pulse Ox Oxygen Delivery Method Weight Weight: 140.1 kg Body Mass Index (BMI) 46.9 Physical Exam Narrative Physical exam: General: Morbidly obese elderly female. Head: Normocephalic, atraumatic, no tenderness Eyes: PERRLA, EOMI ENT, no trauma, moist mucous membranes, no rhinorrhea Neck: Nontender, full range of motion, no spinal tenderness, deformities, step-off CVS: Irregularly irregular rate and rhythm. Tachycardia. Respiratory : clear to auscultation bilaterally, chest wall nontender, no wheezing Abdomen: Soft, nontender, nondistended, normal bowel sounds, no masses : Deferred Back: Nontender, no CVA tenderness, no midline spinal tenderness, deformities, step-offs Extremities: Bilateral leg erythema and swelling. Blister on right spain. Mild erythema of left hip. Skin: Normal color, no trauma, abrasions Neuro: Alert, oriented, cranial nerves II through XII grossly intact. Psychiatry: Normal mood. Normal affect. Not depressed. Not anxious. Results Lab / Micro Data Result Diagrams: 05/29/21 21:48 05/29/21 21:48 Labs: Laboratory Results - last 24 hr 05/29/21 21:48: WBC 13.3 H, RBC 4.10 L, Hgb 11.5 L, Hct 37.3, MCV 91.0, MCH 28.0, MCHC 30.8 L, RDW Std Deviation 53.1 H, RDW Coeff of Kevyn 15.8 H, Plt Count 238, MPV 11.4, Immature Gran % (Auto) 1.600 H, Neut % (Auto) 82.0 H, Lymph % (Auto) 5.2 L, Ashley % (Auto) 10.3 H, Eos % (Auto) 0.4, Baso % (Auto) 0.5, Absolute Neuts (auto) 10.9 H, Absolute Lymphs (auto) 0.69 L, Nucleated RBC % 0 05/29/21 21:48: Sodium 132 L, Potassium 4.0, Chloride 101, Carbon Dioxide 22.0, Anion Gap 9, BUN 24 H, Creatinine 1.28 H, Estim Creat Clear Calc 41.25, Est GFR (MDRD) Af Amer 53 L, Est GFR (MDRD) Non-Af 44 L, BUN/Creatinine Ratio 18.8, Glucose 448 H, Calcium 9.3, Total Bilirubin 2.60 H, AST 21, ALT 15, Alkaline Phosphatase 127 H, Troponin I High Sens 31, Total Protein 8.5 H, Albumin 3.6, Globulin 4.9 H, Albumin/Globulin Ratio 0.7 L, Lipase 76 05/29/21 21:48: B-Natriuretic Peptide 917.6 H 05/29/21 23:02: Lactic Acid 2.0 05/30/21 00:20: Urine Color Yellow, Urine Clarity Cloudy, Urine pH 7.0, Ur Specific [place] 1.010, Urine Protein 100 H, Urine Glucose (UA) 1000 H, Urine Ketones 50 H, Urine Occult Blood 50 H, Urine Nitrite Negative, Urine Bilirubin Negative, Urine Urobilinogen Normal, Ur Leukocyte Esterase 500 H, Urine RBC 0-5 SEEN, Urine WBC >100 SEEN, Ur Squamous Epith Cells 0 SEEN, Urine Bacteria 1+, Urine Mucus 0 SEEN Micro: Microbiology 05/29/21 22:55 Nasal Secretion SARS-CoV-2 Antigen (Rapid) - Final Radiology Impression Abdomen/Pelvis CT 05/29/21 22:46 IMPRESSION: Diverticulosis. There is some mild stranding adjacent to a small segment of ascending colon. Findings could represent diverticulitis. There is no free air identified. No rim-enhancing fluid collections. Small LEFT pleural effusion. LEFT lower lobe atelectasis/infiltrate. Pleural-based nodularity LEFT lower lobe. Recommend a follow-up CT scan of the chest 4-6 weeks to ensure resolution. Neoplastic process cannot be totally excluded. Hepatosplenomegaly. Again noted RIGHT anterior abdominal wall subcutaneous soft tissue thickening. Similar to prior study. Correlate clinically. Unknown clinical significance on CT scan. Recommend correlation to exclude any skin neoplastic process. Again noted ossific structure within the spinal canal at the level T10. Causes canal narrowing and mass effect on the adjacent spinal cord. Correlate with patient''s symptomology. MRI with and without IV contrast may be of benefit in the appropriate clinical setting. Other findings as discussed above. Electronically Signed: Roger Becker MD at 0:53 EDT Tel , Service support , Chest X-Ray 05/30/21 00:21 IMPRESSION: Right lateral midlung and left peripheral lower lung airspace opacities concerning for pneumonia, compatible with atypical viral pneumonia in the appropriate setting. Cardiomegaly without florid edema. 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 fib). T-max at emergent department was 100.0 Fahrenheit. Urinalysis was remarkable for urine occult blood; urine leukocyte Esterase of 500; urine WBC was more than 100. No squamous epithelial cells was seen. Urine bacteria was 1+. Urine culture ordered. Blood culture was ordered at emergency department. Lactic acid 2.0. Received ceftriaxone at emergency department. Levaquin ordered. Trend CBC and BMP. Zofran IV and morphine IV as needed. Abnormal Abdomen and Pelvis CT Radiologist impression of abdomen and pelvis CT: There is some mild stranding adjacent to a small segment of ascending colon. Findings could represent diverticulitis. There is no free air identified. No rim-enhancing fluid collections Patient's abdominal pain is in the left lower quadrant that is opposite to the ascending colon. Most likely inflammation from cystitis. Continue Levaquin as above. Pneumonia/lung nodule Gram-positive, or gram-negative pneumonia Radiologist impression of abdomen and pelvis CT: LEFT lower lobe atelectasis/infiltrate. Pleural-based nodularity LEFT lower lobe. Actual abdomen and pelvis CT was independently interpreted and agree with the latest interpretation. Levaquin as above. Trend CBC and BMP. Incentive parameter ordered. Rapid Covid antigen is negative. Patient symptomatology does not look like Covid. Recommend longitudinal follow-up for a pulmonary nodule Diabetes mellitus Patient with hyperglycemia on presentation Home prandial and basal insulin continued. Accu-Chek QA CHS with correction scale insulin ordered. 1800-calorie restricted diet. Hyperbilirubinemia Patient with bilirubin of 2.6. Likely secondary to acute disease. Trend CMP. Atrial fibrillation with rapid ventricular response Continue sotalol. Gentle IV hydration. Xarelto continued. Bilateral lower extremity edema Hold home diuretics for now. Mc wrap continued. BMI: 47.2 kg/m?. Complicates care. Lifestyle modification recommended. DVT prophylaxis Xarelto continued Charges/Coding Visit Charges Inpatient E&M: 42218 Init Hosp L3
[2021-05-30 03:05] LABS: Reflex Lactate? Y
[2021-05-30] MEDS: 0.9% Normal Saline 1,000 ML 75 ML IV ×2 (03:10→21:48)
[2021-05-30] MEDS: 0.9% Saline Lock 10 ML Syringe IV ×4 (03:10→17:18)
[2021-05-30] MEDS: metroNIDAZOLE 500 MG/100 ML BAG 100 MG IV ×3 (03:10→21:50)
--- NOTE | 2021-05-30 03:25 | PCS.PANDOC ---
PANDEMIC DOCUMENTATION INITIATED: Date: 05/12/2021 Time: 190
[2021-05-30 04:06] LABS: Absolute Lymphocyte Count 0.51 X10^3/uL (0.83-4.51); Absolute Neutrophil Count 10.3 X10^3/uL (2.0-7.7); Basophil# 0.04 X10^3/uL; Basophil% 0.3 % (0-1); Eosinophil# 0.14 X10^3/uL; Eosinophils% 1.1 % (0-5); Hematocrit 32.8 % (37-47); Hemoglobin 10.2 g/dL (12.0-15.0); Lymphocyte # 0.51 X10^3/ul (0.83-4.51); Lymphocyte % 4.1 % (19-41); Mean Corp Hgb Conc 31.1 g/dL (32-36); Mean Corpuscular Hgb 28.7 pg (27.0-32.0); Mean Corpuscular Volume 92.1 fL (81-99); Mean Platelet Vol. 10.3 fl (6.2-12.0); Monocyte# 1.38 X10^3/uL; Monocyte% 11.1 % (0-10); NRBC Flagged by Analyzer 0 % (0-5); Neutrophil % 82.8 % (47-70); POSITIVE DIFFERENTIAL YES; Platelet Count 225 K/mm3 (150-450); RBC Distribution Width CV 15.5 % (11.6-14.6); RBC Distribution Width SD 53.2 fl (35.1-43.9); Red Blood Count 3.56 M/mm3 (4.2-5.4); White Blood Count 12.5 K/mm3 (4.4-11.0)
[2021-05-30 04:27] LABS: ALB/GLOB Ratio 0.7 RATIO (0.9-2.4); AST(SGOT) 16 U/L (15-37); Alanine Aminotransfer ALT/SGPT 14 U/L (13-56); Alkaline Phosphatase 104 U/L (45-117); Anion Gap 12 (5-15); BUN 22 mg/dL (7-18); Calcium,Total 8.8 mg/dL (8.5-10.1); Chloride 102 mmol/L (98-107); Creatinine, Serum 1.05 mg/dL (0.55-1.02); EST Glomerular Filtration Rate 55 mL/min (>60); Est Glom Filt Rate - Afr Amer 67 mL/min (>60); Estimated Creatinine Clearance 48.48 ml/min; Globulin 4.1 g/dL (2.2-4.2); Glucose 403 mg/dL (74-106); Protein, Total 7.1 g/dL (6.4-8.2); Sodium Level 133 mmol/L (136-145)
[2021-05-30 04:29] LABS: Lactic Acid 1.7 mmol/L (0.4-1.9)
[2021-05-30 04:52] LABS: Differential Indicated SCAN CRITERIA MET
[2021-05-30 05:12] LABS: Differential Comment SCANNED
[2021-05-30] MEDS: Menthol/Lanolin/Calamine/Znox 113 GM Tube 1 APPLIC TOPICAL ×5 (06:19→21:52)
[2021-05-30] MEDS: Nystatin Powder 15gm Bottle 1 APPLIC TOPICAL ×3 (06:20→21:52)
[2021-05-30] MEDS: Morphine 2 MG/ML Syringe IV ×3 (06:22→17:16)
[2021-05-30] MEDS: Levothyroxine 100 MCG Tablet 200 MCG PO (06:26)
--- NOTE | 2021-05-30 06:43 | NURSING ---
this RN went in to clean pts folds and apply nystatin and horace to coccyx this AM. pts left hip is noticeably more reddened and hot to the touch. obtained temperature orally and it was 98.3 pt c/o ABD pain that is spasming and was medicated with morphine at this time. call light within reach and denies further needs
[2021-05-30] MEDS: Aspirin 81 MG TAB.CHEW PO (08:08)
[2021-05-30] MEDS: Ascorbic Acid 500 MG Tablet 1000 MG PO (08:08)
[2021-05-30] MEDS: Fenofibrate 145 MG Tablet PO (08:09)
[2021-05-30] MEDS: Sotalol Hydrochloride 80 MG Tablet 120 MG PO ×2 (08:09→21:51)
[2021-05-30] MEDS: Insulin Lispro 100 UNIT/ML INSULN.PEN 30 UNIT SC (08:22)
[2021-05-30] MEDS: Insulin Lispro 100 UNIT/ML INSULN.PEN SC ×4 (08:23→21:54)
[2021-05-30 08:37] LABS: Bedside Glucose 356 mg/dL (70-110)
--- NOTE | 2021-05-30 08:38 | WOUNDNOTE ---
skin photo: right lower leg
--- NOTE | 2021-05-30 08:39 | WOUNDNOTE ---
skin photo: left lower leg
--- NOTE | 2021-05-30 08:40 | WOUNDNOTE ---
Was asked to see patient for wounds to bilateral lower legs. removed LAUREL wraps and dressings. a couple of small scabs noted to lower legs and a small blister noted to the right lower leg. no drainage noted. some mild redness noted. moderate edema noted bilaterally. washed legs and feet with soap and water. pat dry. applied LAUREL wraps from the base of the toes to just below the knees. pt tolerated well. see photos.
[2021-05-30] MEDS: levoFLOXacin IV 750 MG/150 ML BAG 100 MG IV (09:54)
[2021-05-30] MEDS: Insulin Lispro 100 UNIT/ML INSULN.PEN 35 UNIT SC ×2 (11:55→16:57)
[2021-05-30 12:06] LABS: Bedside Glucose 433 mg/dL (70-110)
[2021-05-30] MEDS: Dicyclomine 20 MG/2 ML Vial IM (13:20)
--- NOTE | 2021-05-30 13:40 | CASEMGMT ---
FLORESITA PLATA Face to Face with patient for initial transition planning/care coordination assessment. RN BONI introduced self and role at [facility]. Patient sitting in chair, alert and oriented. Patient willing to participate in assessment and is able to answer all questions appropriately. Care providers, pharmacy, and demographics verified. Patient wishes to discharge home with resumption of HHC with [facility]. Patient states she has no further needs or concerns at this time. CM to follow for discharge planning needs that may arise. PCP: Juan rFancisco Specialists: Serena Dominguez Nephrology; Lumbardi, ortho Preferred Pharmacy: [facility] Insurance: [facility] Prescription Benefit: yes Living Will/HPOA: none LNOK: daughters, sister Living Arrangements: Patient lives alone in a 2 story home with bed and bath on first floor. 1-3 steps to enter the home with railing. Patient states she is independent at home. Transportation: self/sister DME/HHC: patient states she has shower chair, raised toilet seat, BSC, and walker at home. Patient is currently active with [facility] for SN, PT, and OT. Patient has previously been to TCU Disposition Plan: Patient to discharge home with resumption of HHC, family support, and follow-up plans in place. Tammy REDDY, RN, CM
--- NOTE | 2021-05-30 14:02 | PN.HOSP_ITS ---
Subjective Subjective Complaining abdominal cramping. Objective Data Objective Data Vital Signs: Vital Signs Temp Pulse Resp BP Pulse Ox 36.8 C 110 H 16 159/70 H 94 05/30/21 08:25 05/30/21 08:25 05/30/21 08:39 05/30/21 08:25 05/30/21 08:25 Oxygen Delivery Method Room Air Weight: 136.6 kg Body Mass Index (BMI) 47.1 Intake & Output: Intake and Output for Last 24 Hours 05/28/21 05/29/21 05/30/21 23:59 23:59 23:59 Intake Total 1630.00 / 1630.00 Output Total 200 / 200 Balance 1430.00 / 1430.00 Lab / Micro Data Result Diagrams: 05/30/21 03:58 05/30/21 03:58 Labs: Laboratory Results - last 24 hr 05/29/21 21:48: WBC 13.3 H, RBC 4.10 L, Hgb 11.5 L, Hct 37.3, MCV 91.0, MCH 28.0, MCHC 30.8 L, RDW Std Deviation 53.1 H, RDW Coeff of Kevyn 15.8 H, Plt Count 238, MPV 11.4, Immature Gran % (Auto) 1.600 H, Neut % (Auto) 82.0 H, Lymph % (Auto) 5.2 L, Marshall % (Auto) 10.3 H, Eos % (Auto) 0.4, Baso % (Auto) 0.5, Absolute Neuts (auto) 10.9 H, Absolute Lymphs (auto) 0.69 L, Nucleated RBC % 0 05/29/21 21:48: Sodium 132 L, Potassium 4.0, Chloride 101, Carbon Dioxide 22.0, Anion Gap 9, BUN 24 H, Creatinine 1.28 H, Estim Creat Clear Calc 41.25, Est GFR (MDRD) Af Amer 53 L, Est GFR (MDRD) Non-Af 44 L, BUN/Creatinine Ratio 18.8, Glucose 448 H, Calcium 9.3, Total Bilirubin 2.60 H, AST 21, ALT 15, Alkaline Phosphatase 127 H, Troponin I High Sens 31, Total Protein 8.5 H, Albumin 3.6, Globulin 4.9 H, Albumin/Globulin Ratio 0.7 L, Lipase 76 05/29/21 21:48: B-Natriuretic Peptide 917.6 H 05/29/21 23:02: Lactic Acid 2.0 05/30/21 00:20: Urine Color Yellow, Urine Clarity Cloudy, Urine pH 7.0, Ur Specific [place] 1.010, Urine Protein 100 H, Urine Glucose (UA) 1000 H, Urine Ketones 50 H, Urine Occult Blood 50 H, Urine Nitrite Negative, Urine Bilirubin Negative, Urine Urobilinogen Normal, Ur Leukocyte Esterase 500 H, Urine RBC 0-5 SEEN, Urine WBC >100 SEEN, Ur Squamous Epith Cells 0 SEEN, Urine Bacteria 1+, Urine Mucus 0 SEEN 05/30/21 03:58: WBC 12.5 H, RBC 3.56 L, Hgb 10.2 L, Hct 32.8 L, MCV 92.1, MCH 28.7, MCHC 31.1 L, RDW Std Deviation 53.2 H, RDW Coeff of Kevyn 15.5 H, Plt Count 225, MPV 10.3, Immature Gran % (Auto) 0.600, Neut % (Auto) 82.8 H, Lymph % (Auto) 4.1 L, [place] % (Auto) 11.1 H, Eos % (Auto) 1.1, Baso % (Auto) 0.3, Absolute Neuts (auto) 10.3 H, Absolute Lymphs (auto) 0.51 L, Nucleated RBC % 0, Differential Comment SCANNED 05/30/21 03:58: Lactic Acid 1.7 05/30/21 03:58: Sodium 133 L, Potassium 4.0, Chloride 102, Carbon Dioxide 19.0 L , Anion Gap 12, BUN 22 H, Creatinine 1.05 H, Estim Creat Clear Calc 48.48, Est GFR (MDRD) Af Amer 67, Est GFR (MDRD) Non-Af 55 L, BUN/Creatinine Ratio 21.0 H, Glucose 403 H, Calcium 8.8, Total Bilirubin 1.80 H, AST 16, ALT 14, Alkaline Phosphatase 104, Total Protein 7.1, Albumin 3.0 L, Globulin 4.1, Albumin/Globulin Ratio 0.7 L 05/30/21 08:16: POC Glucose 356 H 05/30/21 11:47: POC Glucose 433 H Micro: Microbiology 05/30/21 00:03 Blood Culture (Wb) - Anticubital Right Blood Culture - Preliminary 05/29/21 23:02 Blood Culture (Wb) - Anticubital Left Blood Culture - Preliminary 05/29/21 22:55 Nasal Secretion SARS-CoV-2 Antigen (Rapid) - Final Radiography Diagnostic Testing: Radiology Impression Abdomen/Pelvis CT 05/29/21 22:46 IMPRESSION: Diverticulosis. There is some mild stranding adjacent to a small segment of ascending colon. Findings could represent diverticulitis. There is no free air identified. No rim-enhancing fluid collections. Small LEFT pleural effusion. LEFT lower lobe atelectasis/infiltrate. Pleural-based nodularity LEFT lower lobe. Recommend a follow-up CT scan of the chest 4-6 weeks to ensure resolution. Neoplastic process cannot be totally excluded. Hepatosplenomegaly. Again noted RIGHT anterior abdominal wall subcutaneous soft tissue thickening. Similar to prior study. Correlate clinically. Unknown clinical significance on CT scan. Recommend correlation to exclude any skin neoplastic process. Again noted ossific structure within the spinal canal at the level T10. Causes canal narrowing and mass effect on the adjacent spinal cord. Correlate with patient''s symptomology. MRI with and without IV contrast may be of benefit in the appropriate clinical setting. Other findings as discussed above. Electronically Signed: Roger Becker MD at 0:53 EDT Tel , Service support , Chest X-Ray 05/30/21 00:21 IMPRESSION: Right lateral midlung and left peripheral lower lung airspace opacities concerning for pneumonia, compatible with atypical viral pneumonia in the appropriate setting. Cardiomegaly without florid edema. at 0134 Reported and signed by: Rohit Sandy MD Electronically Signed: Rohit Sandy MD at 1:32 EDT Tel , Service support , Physical Exam Const alert Constitutional Narrative: Appears older than stated age. Disheveled. Uncomf ortable. Nutritional Appearance: obese Resp normal respiratory effort, no retractions, no use of accessory muscles and clear to auscultation bilaterally Cardio regular rate, regular rhythm, S1 normal heart sound and S2 normal heart sound GI GI Narrative: Umbilical abdominal tenderness. She some firmness but no obvious masses can be appreciated. No rebound no guarding. Psych Mood & Affect: anxious Assessment & Plan Assessment/Plan (1) Cystitis: (2) Diverticulitis: PLAN: 1. Acute diverticulitis Continue with the levofloxacin and metronidazole 2. UTI Continue levofloxacin Follow-up urine culture results and adjust antibiotics accordingly. 3. Bacteremia Patient with 2 of 2 blood cultures positive for gram-positive cocci on the Gram stain We will broaden antibiotics and add vancomycin Repeat blood cultures and if positive then would consider 2D echocardiogram 4. Sepsis--ruled out qSOFA of 1, therefore sepsis ruled out. 5. Pulmonary nodule Pneumonia ruled out Follow-up as outpatient 6. Diabetes mellitus type 2 Uncontrolled Check an A1c Continue with home regimen for now 7. Atrial fibrillation Rate controlled Anticoagulated with rivaroxaban 8. VTE prophylaxis: Not indicated as patient is already anticoagulated. Charges/Coding Procedures Hospitalists Procedures: Other Procedure - See Report (Non billable rounding as pt admitted after midnight. )
[2021-05-30] MEDS: Rivaroxaban 15 MG Tablet PO (16:59)
[2021-05-30] MEDS: oxyCODONE 5 MG Tablet 10 MG PO (17:15)
--- NOTE | 2021-05-30 17:23 | NURSING ---
This nurse is aware of Vitals taken by Jennifer Hinton of [employer] around 1400 today. Vitals will be due again at 1999.
--- NOTE | 2021-05-30 18:28 | PCM.RX.CS ---
Consult Pharmacy has been consulted to manage selected antiobiotic: Vancomycin Type of Consult: New start Suspected Infection: Bacteremia Prior Doses of Antibiotics Received/Current Regimen: Received loading dose of 2000mg iv x 1. Labs: Sodium 133 mmol/L (136-145) L 05/30/21 03:58 Potassium 4.0 mmol/L (3.5-5.1) 05/30/21 03:58 Chloride 102 mmol/L (98-107) 05/30/21 03:58 Carbon Dioxide 19.0 mmol/L (21.0-32.0) L 05/30/21 03:58 Anion Gap 12 (5-15) 05/30/21 03:58 BUN 22 mg/dL (7-18) H 05/30/21 03:58 Creatinine 1.05 mg/dL (0.55-1.02) H 05/30/21 03:58 Est GFR (MDRD) Af Amer 67 mL/min (>60) 05/30/21 03:58 Est GFR (MDRD) Non-Af 55 mL/min (>60) L 05/30/21 03:58 BUN/Creatinine Ratio 21.0 RATIO (10-20) H 05/30/21 03:58 Glucose 403 mg/dL (74-106) H 05/30/21 03:58 Microbiology: Microbiology 05/29/21 23:02 Blood Culture (Wb) - Anticubital Left Bacteria Detection (PCR) - Final Staphylococcus aureus mecA Resistance Marker 05/29/21 23:02 Blood Culture (Wb) - Anticubital Left Blood Culture - Preliminary 05/30/21 00:03 Blood Culture (Wb) - Anticubital Right Blood Culture - Preliminary 05/29/21 22:55 Nasal Secretion SARS-CoV-2 Antigen (Rapid) - Final Weight used for dosin.6 kg Estimated Creatinine Clearance: ~72ml/min Goal Trough: 15-20 mcg/mL Pharmacy Plan for Drug Dosing: Renal function calculated as CrCl ~72 for adjusted body weight 91.6kg. Will begin 1750mg iv q12h per protocol. Trough level ordered for before 4th total dose on 06.01.21. Pharmacy Service will continue to monitor and adjust dosing as required. Follow-Up Labs: Trough Vancomycin - 06.01.21 @0430 before 0500 dose
[2021-05-30 18:31] LABS: Bedside Glucose 413 mg/dL (70-110)
[2021-05-30] MEDS: Ondansetron 4 MG/2 ML Vial IV (20:20)
[2021-05-30] MEDS: Atorvastatin Calcium 40 MG Tablet PO (21:52)
[2021-05-30 22:00] LABS: Bedside Glucose 203 mg/dL (70-110)
[2021-05-31] VITALS (17 sets, daily range): BP systolic 117–144; BP diastolic 56–78; PULSE 70–129; RESP 18; TEMP 36.8–37.9; O2SAT 93–100
[2021-05-31] MEDS: DiphenhydrAMINE 50 MG/ML Syringe IV (00:05)
[2021-05-31] MEDS: Metoprolol Tartrate 5 MG/5 ML Vial IV (02:55)
[2021-05-31] MEDS: Acetaminophen 500 MG Tablet 1000 MG PO ×2 (03:05→14:12)
[2021-05-31 03:26] LABS: Bedside Glucose 119 mg/dL (70-110)
[2021-05-31] MEDS: Nystatin Powder 15gm Bottle 1 APPLIC TOPICAL ×3 (06:14→21:09)
[2021-05-31] MEDS: Levothyroxine 100 MCG Tablet 200 MCG PO (06:15)
[2021-05-31 06:26] LABS: Absolute Lymphocyte Count 0.49 X10^3/uL (0.83-4.51); Absolute Neutrophil Count 8.9 X10^3/uL (2.0-7.7); Basophil# 0.07 X10^3/uL; Basophil% 0.7 % (0-1); Eosinophil# 0.05 X10^3/uL; Eosinophils% 0.5 % (0-5); Lymphocyte # 0.49 X10^3/ul (0.83-4.51); Lymphocyte % 4.7 % (19-41); Mean Corpuscular Hgb 28.1 pg (27.0-32.0); Mean Corpuscular Volume 90.6 fL (81-99); Mean Platelet Vol. 10.5 fl (6.2-12.0); Monocyte# 0.84 X10^3/uL; NRBC Flagged by Analyzer 0 % (0-5); Neutrophil # 8.91 X10^3/uL (2.7-7.7); Neutrophil % 85.1 % (47-70); POSITIVE DIFFERENTIAL YES; Platelet Count 213 K/mm3 (150-450); RBC Distribution Width CV 15.4 % (11.6-14.6); RBC Distribution Width SD 51.2 fl (35.1-43.9); White Blood Count 10.5 K/mm3 (4.4-11.0)
[2021-05-31 06:29] LABS: Differential Indicated SCAN CRITERIA MET
[2021-05-31] MEDS: metroNIDAZOLE 500 MG/100 ML BAG 100 MG IV (06:49)
[2021-05-31 07:01] LABS: Differential Comment SCANNED
[2021-05-31] MEDS: Aspirin 81 MG TAB.CHEW PO (07:59)
[2021-05-31 08:06] LABS: Bedside Glucose 127 mg/dL (70-110)
[2021-05-31 08:24] LABS: ALB/GLOB Ratio 0.5 RATIO (0.9-2.4); AST(SGOT) 13 U/L (15-37); Alanine Aminotransfer ALT/SGPT 10 U/L (13-56); Albumin, Serum 2.1 g/dL (3.2-5.0); Alkaline Phosphatase 80 U/L (45-117); Anion Gap 6 (5-15); BUN 30 mg/dL (7-18); BUN/Creat Ratio 25.9 RATIO (10-20); Calcium,Total 9.4 mg/dL (8.5-10.1); Chloride 108 mmol/L (98-107); Creatinine, Serum 1.16 mg/dL (0.55-1.02); EST Glomerular Filtration Rate 49 mL/min (>60); Est Glom Filt Rate - Afr Amer 59 mL/min (>60); Estimated Creatinine Clearance 43.88 ml/min; Glucose 129 mg/dL (74-106); Potassium 4.1 mmol/L (3.5-5.1); Protein, Total 6.1 g/dL (6.4-8.2); Sodium Level 135 mmol/L (136-145)
[2021-05-31] MEDS: Menthol/Lanolin/Calamine/Znox 113 GM Tube 1 APPLIC TOPICAL ×4 (09:52→21:09)
[2021-05-31] MEDS: Fenofibrate 145 MG Tablet PO (09:53)
[2021-05-31] MEDS: Sotalol Hydrochloride 80 MG Tablet 120 MG PO ×2 (09:53→21:12)
[2021-05-31] MEDS: Ascorbic Acid 500 MG Tablet 1000 MG PO (09:54)
[2021-05-31 11:40] LABS: Bedside Glucose 215 mg/dL (70-110)
[2021-05-31] MEDS: Insulin Lispro 100 UNIT/ML INSULN.PEN SC ×3 (12:39→21:10)
[2021-05-31] MEDS: Insulin Lispro 100 UNIT/ML INSULN.PEN 35 UNIT SC ×2 (12:40→17:20)
--- NOTE | 2021-05-31 13:07 | PCM.PN.HOSP ---
Subjective Subjective Feeling better. Objective Data Objective Data Vital Signs: Vital Signs Temp Pulse Resp BP Pulse Ox 36.8 C 90 18 128/59 H 99 05/31/21 07:52 05/31/21 09:46 05/31/21 07:52 05/31/21 07:52 05/31/21 07:52 Oxygen Flow Rate (L/min) 2 Oxygen Delivery Method Nasal Cannula Weight: 136.6 kg Body Mass Index (BMI) 47.1 Intake & Output: Intake and Output for Last 24 Hours 05/29/21 05/30/21 05/31/21 23:59 23:59 23:59 Intake Total 2967.50 / 3117.50 1321.25 / 1321.25 Output Total 600 / 1075 675 / 675 Balance 2367.50 / 2042.50 646.25 / 646.25 Lab / Micro Data Result Diagrams: 05/31/21 06:17 05/31/21 06:17 Labs: Laboratory Results - last 24 hr 05/30/21 16:56: POC Glucose 413 H 05/30/21 21:53: POC Glucose 203 H 05/31/21 03:18: POC Glucose 119 H 05/31/21 06:17: WBC 10.5, RBC 3.20 L, Hgb 9.0 L, Hct 29.0 L, MCV 90.6, MCH 28.1, MCHC 31.0 L, RDW Std Deviation 51.2 H, RDW Coeff of Kevyn 15.4 H, Plt Count 213, MPV 10.5, Immature Gran % (Auto) 1.000 H, Neut % (Auto) 85.1 H, Lymph % (Auto) 4.7 L, [place] % (Auto) 8.0, Eos % (Auto) 0.5, Baso % (Auto) 0.7, Absolute Neuts (auto) 8.9 H, Absolute Lymphs (auto) 0.49 L, Nucleated RBC % 0, Differential Comment SCANNED 05/31/21 06:17: Sodium 135 L, Potassium 4.1, Chloride 108 H, Carbon Dioxide 21.0, Anion Gap 6, BUN 30 H, Creatinine 1.16 H, Estim Creat Clear Calc 43.88, Est GFR (MDRD) Af Amer 59 L, Est GFR (MDRD) Non-Af 49 L, BUN/Creatinine Ratio 25.9 H, Glucose 129 H, Calcium 9.4, Total Bilirubin 1.10 H, AST 13 L, ALT 10 L, Alkaline Phosphatase 80, Total Protein 6.1 L, Albumin 2.1 L, Globulin 4.0, Albumin/Globulin Ratio 0.5 L 05/31/21 07:52: POC Glucose 127 H 05/31/21 11:35: POC Glucose 215 H Micro: Microbiology 05/30/21 00:20 Urine, Catheterized Urine Culture - Preliminary Proteus sp. GNR lactose fishing rod mechanic 05/30/21 14:30 Blood Culture (Wb) - Anticubital Right Blood Culture - Preliminary 05/30/21 14:40 Blood Culture (Wb) - Anticubital Right Blood Culture - Preliminary 05/30/21 00:03 Blood Culture (Wb) - Anticubital Right Blood Culture - Final Staphylococcus aureus 05/29/21 23:02 Blood Culture (Wb) - Anticubital Left Bacteria Detection (PCR) - Final Staphylococcus aureus mecA Resistance Marker 05/29/21 23:02 Blood Culture (Wb) - Anticubital Left Blood Culture - Preliminary 05/29/21 22:55 Nasal Secretion SARS-CoV-2 Antigen (Rapid) - Final Physical Exam Const alert Constitutional Narrative: more comfortable today. HEENT Head and Scalp: normocephalic Resp normal respiratory effort, no retractions, no use of accessory muscles and clear to auscultation bilaterally Cardio regular rate, regular rhythm, S1 normal heart sound and S2 normal heart sound GI normal to inspection, nondistended, normoactive bowel sounds, soft to palpation, non-tender and non-distended GI Narrative: obese Extremity General Extremity: edema Skin Skin Narrative: no LE rash or open wounds Neuro Sensorium / Orientation: awake Assessment & Plan Assessment/Plan (1) Cystitis: (2) Diverticulitis: (3) Bacteremia: PLAN: 1. Acute diverticulitis Continue with the levofloxacin 2. UTI Continue levofloxacin Proteus and other GNR Follow-up urine culture results and adjust antibiotics accordingly. 3. MRSA Bacteremia Unclear source Patient with 4 of 4 blood cultures positive for gram-positive cocci on the Gram stain (done before Vancomycin) Continue vancomycin repeat Bcx now that he has received Vancomycin, if this is positive, check echo 4. Sepsis--ruled out qSOFA of 1, therefore sepsis ruled out. 5. Pulmonary nodule Pneumonia ruled out Follow-up as outpatient 6. Diabetes mellitus type 2 Uncontrolled Check an A1c Continue with home regimen for now 7. Atrial fibrillation Rate controlled Anticoagulated with rivaroxaban 8. VTE prophylaxis: Not indicated as patient is already anticoagulated. Charges/Coding Visit Charges Inpatient E&M: 68855 Subs Hosp L2
[2021-05-31] MEDS: Senna/Docusate Sodium 1 Tablet 2 TABLET PO (14:12)
[2021-05-31] MEDS: 0.9% Normal Saline 1,000 ML 75 ML IV (14:16)
[2021-05-31 16:40] LABS: Bedside Glucose 226 mg/dL (70-110)
[2021-05-31] MEDS: Furosemide 40 MG Tablet PO (17:18)
[2021-05-31] MEDS: Rivaroxaban 15 MG Tablet PO (17:21)
[2021-05-31] MEDS: Atorvastatin Calcium 40 MG Tablet PO (21:12)
[2021-05-31] MEDS: oxyCODONE 5 MG Tablet 10 MG PO (21:23)
[2021-05-31 21:30] LABS: Bedside Glucose 265 mg/dL (70-110)
[2021-06-01 04:15] VITALS: BP 126/62; PULSE 82; RESP 20; TEMP 37.1; O2SAT 95
[2021-06-01 04:54] LABS: Absolute Lymphocyte Count 0.46 X10^3/uL (0.83-4.51); Absolute Neutrophil Count 7.2 X10^3/uL (2.0-7.7); Basophil# 0.08 X10^3/uL; Basophil% 0.9 % (0-1); Eosinophil# 0.32 X10^3/uL; Eosinophils% 3.6 % (0-5); Hematocrit 30.1 % (37-47); Hemoglobin 9.2 g/dL (12.0-15.0); Lymphocyte # 0.46 X10^3/ul (0.83-4.51); Lymphocyte % 5.2 % (19-41); Mean Corp Hgb Conc 30.6 g/dL (32-36); Mean Corpuscular Hgb 27.7 pg (27.0-32.0); Mean Corpuscular Volume 90.7 fL (81-99); Monocyte# 0.77 X10^3/uL; Monocyte% 8.7 % (0-10); NRBC Flagged by Analyzer 0 % (0-5); Neutrophil # 7.17 X10^3/uL (2.7-7.7); Neutrophil % 80.9 % (47-70); POSITIVE DIFFERENTIAL YES; Platelet Count 246 K/mm3 (150-450); RBC Distribution Width CV 15.8 % (11.6-14.6); RBC Distribution Width SD 52.3 fl (35.1-43.9); Red Blood Count 3.32 M/mm3 (4.2-5.4); White Blood Count 8.9 K/mm3 (4.4-11.0)
[2021-06-01 05:13] LABS: ALB/GLOB Ratio 0.5 RATIO (0.9-2.4); AST(SGOT) 12 U/L (15-37); Alanine Aminotransfer ALT/SGPT 10 U/L (13-56); Alkaline Phosphatase 92 U/L (45-117); Anion Gap 7 (5-15); BUN 30 mg/dL (7-18); BUN/Creat Ratio 30.8 RATIO (10-20); Calcium,Total 8.6 mg/dL (8.5-10.1); Chloride 108 mmol/L (98-107); Creatinine, Serum 0.97 mg/dL (0.55-1.02); EST Glomerular Filtration Rate 60 mL/min (>60); Est Glom Filt Rate - Afr Amer 73 mL/min (>60); Estimated Creatinine Clearance 52.48 ml/min; Globulin 4.3 g/dL (2.2-4.2); Glucose 196 mg/dL (74-106); Potassium 3.9 mmol/L (3.5-5.1); Protein, Total 6.3 g/dL (6.4-8.2); Sodium Level 135 mmol/L (136-145); Vancomycin, Trough Level 24.5 ug/mL (5.0-15.0)
[2021-06-01] MEDS: Nystatin Powder 15gm Bottle 1 APPLIC TOPICAL ×3 (05:24→22:03)
[2021-06-01] MEDS: 0.9% Normal Saline 1,000 ML 75 ML IV ×2 (05:24→22:04)
[2021-06-01 05:25] LABS: Differential Indicated SCAN CRITERIA MET
[2021-06-01] MEDS: Levothyroxine 100 MCG Tablet 200 MCG PO (05:25)
[2021-06-01 05:27] LABS: Differential Comment SCANNED
--- NOTE | 2021-06-01 06:07 | PCM.RX.CS ---
Consult Pharmacy has been consulted to manage selected antiobiotic: Vancomycin Type of Consult: Follow-up Suspected Infection: Bacteremia Prior Doses of Antibiotics Received/Current Regimen: Medications Discontinued Medications Vancomycin HCl 1,750 mg/ (Sodium Chloride) 535 mls @ 250 mls/hr IV Q12H SARAH Last Admin: 06/01/21 05:59 Dose: 0 mls/hr Labs: Sodium 135 mmol/L (136-145) L 06/01/21 04:42 Potassium 3.9 mmol/L (3.5-5.1) 06/01/21 04:42 Chloride 108 mmol/L (98-107) H 06/01/21 04:42 Carbon Dioxide 20.0 mmol/L (21.0-32.0) L 06/01/21 04:42 Anion Gap 7 (5-15) 06/01/21 04:42 BUN 30 mg/dL (7-18) H 06/01/21 04:42 Creatinine 0.97 mg/dL (0.55-1.02) 06/01/21 04:42 Est GFR (MDRD) Af Amer 73 mL/min (>60) 06/01/21 04:42 Est GFR (MDRD) Non-Af 60 mL/min (>60) 06/01/21 04:42 BUN/Creatinine Ratio 30.8 RATIO (10-20) H 06/01/21 04:42 Glucose 196 mg/dL (74-106) H 06/01/21 04:42 Vancomycin Trough 24.5 ug/mL (5.0-15.0) H 06/01/21 04:42 Microbiology: Microbiology 05/30/21 00:20 Urine, Catheterized Urine Culture - Preliminary Proteus sp. GNR lactose food and beverage associate 05/30/21 14:30 Blood Culture (Wb) - Anticubital Right Blood Culture - Preliminary 05/30/21 14:40 Blood Culture (Wb) - Anticubital Right Blood Culture - Preliminary 05/30/21 00:03 Blood Culture (Wb) - Anticubital Right Blood Culture - Final Staphylococcus aureus 05/29/21 23:02 Blood Culture (Wb) - Anticubital Left Bacteria Detection (PCR) - Final Staphylococcus aureus mecA Resistance Marker 05/29/21 23:02 Blood Culture (Wb) - Anticubital Left Blood Culture - Preliminary 05/29/21 22:55 Nasal Secretion SARS-CoV-2 Antigen (Rapid) - Final Weight used for dosin.6 kg Estimated Creatinine Clearance: 78 Goal Trough: 15-20 mcg/mL Pharmacy Plan for Drug Dosing: Vancomycin trough draw of 24.5 was high. The currently running dose was aborted and current order discontinued pending another random level. Pharmacy will calculate and resume dosing after random draw 06/01/21 @1630. Pharmacy Service will continue to monitor and adjust dosing as required. Follow-Up Labs: Trough Vancomycin - random Labs to be done on [date and time ordered]: 06/01/21 @1630
[2021-06-01] MEDS: oxyCODONE 5 MG Tablet PO (07:31)
[2021-06-01] MEDS: Aspirin 81 MG TAB.CHEW PO (07:32)
[2021-06-01 07:36] LABS: Bedside Glucose 161 mg/dL (70-110)
[2021-06-01 07:51] VITALS: BP 132/60; PULSE 94; RESP 18; TEMP 37.5; O2SAT 93
[2021-06-01] MEDS: Insulin Lispro 100 UNIT/ML INSULN.PEN 30 UNIT SC (09:00)
[2021-06-01] MEDS: Sotalol Hydrochloride 80 MG Tablet 120 MG PO ×2 (09:02→22:01)
[2021-06-01] MEDS: Ascorbic Acid 500 MG Tablet 1000 MG PO (09:03)
[2021-06-01] MEDS: Fenofibrate 145 MG Tablet PO (09:03)
[2021-06-01] MEDS: Furosemide 40 MG Tablet PO (09:06)
[2021-06-01] MEDS: levoFLOXacin IV 750 MG/150 ML BAG 100 MG IV (09:06)
[2021-06-01] MEDS: Menthol/Lanolin/Calamine/Znox 113 GM Tube 1 APPLIC TOPICAL ×4 (09:12→22:03)
--- NOTE | 2021-06-01 09:40 | PCM.PN.HOSP ---
Subjective Subjective Complains of right eye pain and pepper in visual field that began today. Objective Data Objective Data Vital Signs: Vital Signs Temp Pulse Resp BP Pulse Ox 37.5 C H 94 18 132/60 H 93 06/01/21 07:51 06/01/21 07:51 06/01/21 07:51 06/01/21 07:51 06/01/21 07:51 Oxygen Flow Rate (L/min) 2 Oxygen Delivery Method Room Air Weight: 136.6 kg Body Mass Index (BMI) 47.1 Intake & Output: Intake and Output for Last 24 Hours 05/30/21 05/31/21 06/01/21 23:59 23:59 23:59 Intake Total 2967.50 / 3117.50 2027.50 / 2227.50 1629.58 / 1629.58 Output Total 600 / 1075 1050 / 1750 1150 / 1150 Balance 2367.50 / 2042.50 977.50 / 477.50 479.58 / 479.58 Lab / Micro Data Result Diagrams: 06/01/21 04:42 06/01/21 04:42 Labs: Laboratory Results - last 24 hr 05/31/21 11:35: POC Glucose 215 H 05/31/21 16:28: POC Glucose 226 H 05/31/21 21:08: POC Glucose 265 H 06/01/21 04:42: Vancomycin Trough 24.5 H 06/01/21 04:42: WBC 8.9, RBC 3.32 L, Hgb 9.2 L, Hct 30.1 L, MCV 90.7, MCH 27.7, MCHC 30.6 L, RDW Std Deviation 52.3 H, RDW Coeff of Kevyn 15.8 H, Plt Count 246, MPV 11.0, Immature Gran % (Auto) 0.700, Neut % (Auto) 80.9 H, Lymph % (Auto) 5.2 L, [place] % (Auto) 8.7, Eos % (Auto) 3.6, Baso % (Auto) 0.9, Absolute Neuts (auto) 7.2, Absolute Lymphs (auto) 0.46 L, Nucleated RBC % 0, Differential Comment SCANNED 06/01/21 04:42: Sodium 135 L, Potassium 3.9, Chloride 108 H, Carbon Dioxide 20.0 L, Anion Gap 7, BUN 30 H, Creatinine 0.97, Estim Creat Clear Calc 52.48, Est GFR (MDRD) Af Amer 73, Est GFR (MDRD) Non-Af 60, BUN/Creatinine Ratio 30.8 H, Glucose 196 H, Calcium 8.6, Total Bilirubin 0.80, AST 12 L, ALT 10 L, Alkaline Phosphatase 92, Total Protein 6.3 L, Albumin 2.0 L, Globulin 4.3 H, Albumin/Globulin Ratio 0.5 L 06/01/21 07:25: POC Glucose 161 H Micro: Microbiology 05/30/21 00:20 Urine, Catheterized Urine Culture - Preliminary Proteus mirabilis GNR lactose multiple drum sander helper 05/29/21 23:02 Blood Culture (Wb) - Anticubital Left Bacteria Detection (PCR) - Final Staphylococcus aureus mecA Resistance Marker 05/29/21 23:02 Blood Culture (Wb) - Anticubital Left Blood Culture - Final Meth. resistant Staph. aureus 05/30/21 14:40 Blood Culture (Wb) - Anticubital Right Blood Culture - Final Staphylococcus aureus 05/30/21 14:30 Blood Culture (Wb) - Anticubital Right Blood Culture - Final Staphylococcus aureus 05/30/21 00:03 Blood Culture (Wb) - Anticubital Right Blood Culture - Final Staphylococcus aureus 05/29/21 22:55 Nasal Secretion SARS-CoV-2 Antigen (Rapid) - Final Physical Exam Const alert and oriented x3 HEENT Head and Scalp: normocephalic Eyes PERRL and EOMs intact bilaterally Eyes Narrative: slight injection of right sclera. Resp normal respiratory effort, no retractions, no use of accessory muscles and clear to auscultation bilaterally Cardio regular rate, regular rhythm, S1 normal heart sound and S2 normal heart sound GI normal to inspection, nondistended, normoactive bowel sounds, soft to palpation and non-tender GI Narrative: obese Extremity Extremity Narrative: wrapped bilaterally. General Extremity: edema Neuro Sensorium / Orientation: awake and alert Psych Mood & Affect: depressed Assessment & Plan Assessment/Plan (1) Cystitis: (2) Diverticulitis: (3) Bacteremia: PLAN: 1. Acute diverticulitis Continue with the levofloxacin 2. UTI Continue levofloxacin Proteus and other GNR Follow-up urine culture results and adjust antibiotics accordingly. 3. MRSA Bacteremia Unclear source Patient with 4 of 4 blood cultures positive for gram-positive cocci on the Gram stain (done before Vancomycin) Continue vancomycin repeat Bcx now that he has received Vancomycin, if this is positive, check echo follow up repeat BCx on 05/31 to ensure sterility 4. Sepsis--ruled out qSOFA of 1, therefore sepsis ruled out. 5. Pulmonary nodule Pneumonia ruled out Follow-up as outpatient 6. Diabetes mellitus type 2 Uncontrolled Check an A1c Continue with home regimen for now 7. Atrial fibrillation Rate controlled Anticoagulated with rivaroxaban 8. VTE prophylaxis: Not indicated as patient is already anticoagulated. 9. Right eye pain Eye not injected. EOMI and PERRL. DW Dr. Doyle of ophthalmology. Who suspects it could be dry and recommended lacrilube to eye. He had no active concerned for endophthalmitis or glaucoma. He said to call back if worse or if new changes. Will add lacrilube to Right eye. Charges/Coding Visit Charges Inpatient E&M: 10509 Subs Hosp L3
[2021-06-01] MEDS: Petrolatum,White 3.75GM OPTH.TUBE 1 APPLIC OPHTHALMIC ×4 (10:24→22:01)
[2021-06-01 11:10] LABS: Bedside Glucose 221 mg/dL (70-110)
[2021-06-01 11:15] VITALS: BP 132/67; PULSE 99; RESP 16; TEMP 36.9; O2SAT 94
[2021-06-01] MEDS: Insulin Lispro 100 UNIT/ML INSULN.PEN 35 UNIT SC ×2 (12:15→17:37)
[2021-06-01 14:51] VITALS: BP 142/64; PULSE 89; RESP 16; TEMP 37.2; O2SAT 97
[2021-06-01 16:10] LABS: Bedside Glucose 185 mg/dL (70-110)
[2021-06-01 16:47] LABS: Vancomycin, Random Level 23.4 ug/mL (0.0-15.0)
--- NOTE | 2021-06-01 16:56 | PHA.PHARE_ITS ---
Consult Pharmacy has been consulted to manage selected antiobiotic: Vancomycin Type of Consult: Follow-up Suspected Infection: Bacteremia Labs: Sodium 135 mmol/L (136-145) L 06/01/21 04:42 Potassium 3.9 mmol/L (3.5-5.1) 06/01/21 04:42 Chloride 108 mmol/L (98-107) H 06/01/21 04:42 Carbon Dioxide 20.0 mmol/L (21.0-32.0) L 06/01/21 04:42 Anion Gap 7 (5-15) 06/01/21 04:42 BUN 30 mg/dL (7-18) H 06/01/21 04:42 Creatinine 0.97 mg/dL (0.55-1.02) 06/01/21 04:42 Est GFR (MDRD) Af Amer 73 mL/min (>60) 06/01/21 04:42 Est GFR (MDRD) Non-Af 60 mL/min (>60) 06/01/21 04:42 BUN/Creatinine Ratio 30.8 RATIO (10-20) H 06/01/21 04:42 Glucose 196 mg/dL (74-106) H 06/01/21 04:42 Vancomycin Trough 24.5 ug/mL (5.0-15.0) H 06/01/21 04:42 Random Vancomycin 23.4 ug/mL (0.0-15.0) H 06/01/21 16:10 Microbiology: Microbiology 05/30/21 00:20 Urine, Catheterized Urine Culture - Preliminary Proteus mirabilis GNR lactose facilities coordinator 05/29/21 23:02 Blood Culture (Wb) - Anticubital Left Bacteria Detection (PCR) - Final Staphylococcus aureus mecA Resistance Marker 05/29/21 23:02 Blood Culture (Wb) - Anticubital Left Blood Culture - Final Meth. resistant Staph. aureus 05/30/21 14:40 Blood Culture (Wb) - Anticubital Right Blood Culture - Final Staphylococcus aureus 05/30/21 14:30 Blood Culture (Wb) - Anticubital Right Blood Culture - Final Staphylococcus aureus 05/30/21 00:03 Blood Culture (Wb) - Anticubital Right Blood Culture - Final Staphylococcus aureus 05/29/21 22:55 Nasal Secretion SARS-CoV-2 Antigen (Rapid) - Final Pharmacy Plan for Drug Dosing: VANCOMYCIN LEVEL RECEIVED Current Vancomycin Dose: LAST DOSE 1750MG 06/01 @ 0448 - BAG WAS STOPPED MID INFUSION DUE TO HIGH TROUGH. UNCLEAR HOW MUCH INFUSED, LOOKS LIKE 1/2 OF THE BAG MAY HAVE BEEN GIVEN. PATIENT MAY HAVE GOTTEN ~1 GRAM OF VANCOMYCIN. Number of Doses Received: 3.5 Vancomycin Level: 23.4 MG/DL Hours Since Last Dose: ~11.5 Renal Function: SCR 0.97, CRCL 52 ML/MIN Renal Function Trend: STABLE Lab/Micro: MRSA IN BLOOD CX Vancomycin Plan/Comments: SINCE RANDOM LEVEL IS STILL HIGH, WILL ORDER ANOTHER RANDOM LEVEL FOR TOMORROW MORNING WITH AM LABS TO REASSESS. Pending Level: RANDOM 06/02/21 @ 0600 Pharmacy Service will continue to monitor and adjust dosing as required.
[2021-06-01] MEDS: Rivaroxaban 15 MG Tablet PO (17:08)
[2021-06-01 21:30] VITALS: BP 134/60; PULSE 91; RESP 20; TEMP 36.9; O2SAT 95
[2021-06-01] MEDS: Atorvastatin Calcium 40 MG Tablet PO (22:01)
[2021-06-01] MEDS: Senna/Docusate Sodium 1 Tablet 2 TABLET PO (22:08)
[2021-06-01 22:16] LABS: Bedside Glucose 104 mg/dL (70-110)
[2021-06-02 04:19] VITALS: BP 136/59; PULSE 77; RESP 20; TEMP 36.7; O2SAT 97
[2021-06-02] MEDS: oxyCODONE 5 MG Tablet PO (04:26)
[2021-06-02] MEDS: Acetaminophen 500 MG Tablet 1000 MG PO ×2 (04:26→23:11)
[2021-06-02] MEDS: proCHLORPERazine 10 MG/2 ML Vial 5 MG IV (04:49)
[2021-06-02] MEDS: 0.9% Saline Lock 10 ML Syringe IV (04:50)
[2021-06-02] MEDS: Levothyroxine 100 MCG Tablet 200 MCG PO (05:09)
[2021-06-02] MEDS: Nystatin Powder 15gm Bottle 1 APPLIC TOPICAL ×3 (05:16→22:29)
[2021-06-02 06:26] LABS: Absolute Lymphocyte Count 0.62 X10^3/uL (0.83-4.51); Absolute Neutrophil Count 6.7 X10^3/uL (2.0-7.7); Basophil# 0.07 X10^3/uL; Basophil% 0.8 % (0-1); Eosinophil# 0.21 X10^3/uL; Eosinophils% 2.4 % (0-5); Hematocrit 29.6 % (37-47); Hemoglobin 9.2 g/dL (12.0-15.0); Lymphocyte # 0.62 X10^3/ul (0.83-4.51); Lymphocyte % 7.1 % (19-41); Mean Corp Hgb Conc 31.1 g/dL (32-36); Mean Corpuscular Volume 90.2 fL (81-99); Mean Platelet Vol. 10.6 fl (6.2-12.0); Monocyte# 0.99 X10^3/uL; Monocyte% 11.3 % (0-10); NRBC Flagged by Analyzer 0 % (0-5); Neutrophil # 6.74 X10^3/uL (2.7-7.7); Neutrophil % 77.1 % (47-70); Platelet Count 263 K/mm3 (150-450); RBC Distribution Width SD 53.6 fl (35.1-43.9); Red Blood Count 3.28 M/mm3 (4.2-5.4); White Blood Count 8.7 K/mm3 (4.4-11.0)
[2021-06-02 06:58] LABS: ALB/GLOB Ratio 0.5 RATIO (0.9-2.4); AST(SGOT) 17 U/L (15-37); Alanine Aminotransfer ALT/SGPT 11 U/L (13-56); Alkaline Phosphatase 101 U/L (45-117); Anion Gap 6 (5-15); BUN 25 mg/dL (7-18); BUN/Creat Ratio 29.4 RATIO (10-20); Calcium,Total 8.4 mg/dL (8.5-10.1); Chloride 107 mmol/L (98-107); Creatinine, Serum 0.85 mg/dL (0.55-1.02); EST Glomerular Filtration Rate 70 mL/min (>60); Est Glom Filt Rate - Afr Amer 85 mL/min (>60); Estimated Creatinine Clearance 59.89 ml/min; Globulin 4.2 g/dL (2.2-4.2); Glucose 82 mg/dL (74-106); Potassium 3.5 mmol/L (3.5-5.1); Protein, Total 6.2 g/dL (6.4-8.2); Sodium Level 136 mmol/L (136-145)
[2021-06-02 07:00] LABS: Vancomycin, Random Level 15.6 ug/mL (0.0-15.0)
--- NOTE | 2021-06-02 07:24 | PCM.RX.CS ---
Consult Pharmacy has been consulted to manage selected antiobiotic: Vancomycin Type of Consult: Follow-up Suspected Infection: Bacteremia Labs: Sodium 136 mmol/L (136-145) 06/02/21 06:00 Potassium 3.5 mmol/L (3.5-5.1) 06/02/21 06:00 Chloride 107 mmol/L (98-107) 06/02/21 06:00 Carbon Dioxide 23.0 mmol/L (21.0-32.0) 06/02/21 06:00 Anion Gap 6 (5-15) 06/02/21 06:00 BUN 25 mg/dL (7-18) H 06/02/21 06:00 Creatinine 0.85 mg/dL (0.55-1.02) 06/02/21 06:00 Est GFR (MDRD) Af Amer 85 mL/min (>60) 06/02/21 06:00 Est GFR (MDRD) Non-Af 70 mL/min (>60) 06/02/21 06:00 BUN/Creatinine Ratio 29.4 RATIO (10-20) H 06/02/21 06:00 Glucose 82 mg/dL (74-106) 06/02/21 06:00 Vancomycin Trough 24.5 ug/mL (5.0-15.0) H 06/01/21 04:42 Random Vancomycin 15.6 ug/mL (0.0-15.0) H 06/02/21 06:00 Microbiology: Microbiology 05/30/21 00:20 Urine, Catheterized Urine Culture - Preliminary Proteus mirabilis GNR lactose host/hostess ground 05/29/21 23:02 Blood Culture (Wb) - Anticubital Left Bacteria Detection (PCR) - Final Staphylococcus aureus mecA Resistance Marker 05/29/21 23:02 Blood Culture (Wb) - Anticubital Left Blood Culture - Final Meth. resistant Staph. aureus 05/30/21 14:40 Blood Culture (Wb) - Anticubital Right Blood Culture - Final Staphylococcus aureus 05/30/21 14:30 Blood Culture (Wb) - Anticubital Right Blood Culture - Final Staphylococcus aureus 05/30/21 00:03 Blood Culture (Wb) - Anticubital Right Blood Culture - Final Staphylococcus aureus 05/29/21 22:55 Nasal Secretion SARS-CoV-2 Antigen (Rapid) - Final Goal Trough: 15-20 mcg/mL Pharmacy Plan for Drug Dosing: VANCOMYCIN LEVEL RECEIVED Current Vancomycin Dose: current dose is being held due to previously elevated trough Number of Doses Received: 2000mg x1 on 05/30/21, 1750mg x2 and a partial infusion Vancomycin Level: random level resulted at 15.6 Hours Since Last Dose: ~25 hours since the partial infusion on 06/01/21 at 0448 Renal Function: SrCr is 0.85 Renal Function Trend: stable Lab/Micro: Vancomycin Plan/Comments: recommend re initiating Vancomycin since random level is <20. will will start with a lower dose of 1250mg q12h, checking trough level before the 4th dose Pending Level: 06/03/21 at 1930 Pharmacy Service will continue to monitor and adjust dosing as required. Follow-Up Labs: Trough Vancomycin - 06/03/21 at 1930
--- NOTE | 2021-06-02 07:50 | ECHOD_ITS ---
Reason For Study: MRSA +, R/O ENDOCARDITIS. Procedure This was a 2D Doppler, Color Flow transthoracic echocardiogram. The study was technically difficult. Exam performed portable in patient room. Left Ventricle Normal LV size. Moderate concentric left ventricular hypertrophy. Left ventricular systolic function is normal. The estimated ejection fraction is 65 %. No regional wall motion abnormalities noted. Right Ventricle Normal RV size. Normal systolic function. Atria The left atrium is moderately enlarged. The right atrium is mildly enlarged. No doppler evidence for ASD. Mitral Valve There is moderate mitral annular calcification. Extension of the mitral annular calcification onto the base of the posterior mitral valve leaflet. The mitral valve chordae are thickened and/or calcified. The mitral papillary muscle appears thickened and/or calcified. Mild (1+) mitral valve insufficiency. Tricuspid Valve Normal tricuspid valve. Moderate (2+) eccentric tricuspid valve insufficiency. Right ventricular systolic pressure estimated to be 61 mmHg. Aortic Valve Trisinus/trileaflet aortic valve. Mild diffuse aortic valve thickening. Mild focal aortic valve calcification. Trivial aortic valve insufficiency. Pulmonic Valve The pulmonic valve is not well visualized. Mild (1+) pulmonic valve insufficiency. Great Vessels Mildly dilated aortic root. Pericardium/Pleural No pericardial effusion. MMode/2D Measurements & Calculations LVIDd: 4.4 cm IVSd: 1.5 cm Ao root diam: 4.0 cm LVIDs: 3.4 cm LVPWd: 1.4 cm RVDd: 3.8 cm FS: 21.8 % LAV(MOD-bp): 105.9 ml LA A4 area: 28.8 cm2 LA dimension(2D): 5.2 cm LAV(MOD-bp) Indexed: 44.0 ml/m2 LAV(MOD-sp2): 105.9 ml LAV(MOD-sp4): 103.7 ml RA A4 area: 20.0 cm2 Time Measurements MV dec time: 0.22 sec Doppler Measurements & Calculations MV E max paul: 147.0 cm/sec Lat Peak E' Paul: 8.3 cm/sec Med Peak E' Paul: 5.0 cm/sec MV A max paul: 35.4 cm/sec E/E' lat: 17.8 E/E' med: 29.2 MV E/A: 4.1 Ao V2 max: 217.8 cm/sec LV V1 max: 115.1 cm/sec PA V2 max: 93.5 cm/sec Ao max P.0 mmHg LV V1 max P.3 mmHg Ao V2 mean: 152.3 cm/sec LV V1 mean P.6 mmHg Ao mean P.3 mmHg LV V1 mean: 77.0 cm/sec Ao V2 VTI: 45.4 cm LV V1 VTI: 22.6 cm TR max paul: 364.5 cm/sec TR max P.2 mmHg ECHO/Echo Complete Interpretation Summary The study was technically difficult. Left ventricular systolic function is normal. The estimated ejection fraction is 65 %. Moderate concentric left ventricular hypertrophy. The left atrium is moderately enlarged. The right atrium is mildly enlarged. There is moderate mitral annular calcification. Extension of the mitral annular calcification onto the base of the posterior mi tral valve leaflet. The mitral valve chordae are thickened and/or calcified. The mitral papillary muscle appears thickened and/or calcified. Mild (1+) mitral valve insufficiency. Moderate (2+) eccentric tricuspid valve insufficiency. Mild diffuse aortic valve thickening. Mild focal aortic valve calcification. Trivial aortic valve insufficiency. Mild (1+) pulmonic valve insufficiency. Mildly dilated aortic root. Right ventricular systolic pressure estimated to be 61 mmHg c/w pulmonary hyper tension. Transmitral diastolic flow velocities suggest diastolic dysfunction (pseudonorm al pattern). Ordering Physician: Donny Feng Referring Physician: Maggi Chicas Performed By: Maggie Stone, RUTH, RVT
[2021-06-02 08:21] LABS: Bedside Glucose 76 mg/dL (70-110)
[2021-06-02 08:23] VITALS: BP 136/70; PULSE 81; RESP 18; TEMP 36.8; O2SAT 96
[2021-06-02] MEDS: Ascorbic Acid 500 MG Tablet 1000 MG PO (10:16)
[2021-06-02] MEDS: Sotalol Hydrochloride 80 MG Tablet 120 MG PO ×2 (10:16→22:27)
[2021-06-02] MEDS: Aspirin 81 MG TAB.CHEW PO (10:17)
[2021-06-02] MEDS: Petrolatum,White 3.75GM OPTH.TUBE 1 APPLIC OPHTHALMIC ×3 (10:17→22:28)
[2021-06-02] MEDS: Fenofibrate 145 MG Tablet PO (10:17)
[2021-06-02] MEDS: Menthol/Lanolin/Calamine/Znox 113 GM Tube 1 APPLIC TOPICAL ×4 (10:17→22:28)
[2021-06-02] MEDS: Furosemide 40 MG Tablet PO (10:21)
[2021-06-02 11:11] LABS: Bedside Glucose 148 mg/dL (70-110)
[2021-06-02 11:48] VITALS: BP 135/64; PULSE 85; RESP 16; TEMP 36.8; O2SAT 97
[2021-06-02] MEDS: Polyethylene Glycol 3350 17 GM PACKET PO (12:35)
[2021-06-02] MEDS: Senna/Docusate Sodium 1 Tablet 2 TABLET PO ×2 (12:36→23:11)
[2021-06-02] MEDS: Insulin Lispro 100 UNIT/ML INSULN.PEN 35 UNIT SC ×2 (12:37→17:29)
--- NOTE | 2021-06-02 12:38 | PCM.PN.HOSP ---
Subjective Subjective No fever. Last temperature 99.5 ?F yesterday morning. Patient complain of right eye blurry vision but she is inconsistent sometimes she does not see anything and sometimes she still is full. Right eye is mild pinkish. The patient is on systemic antibiotic. Objective Data Objective Data Vital Signs: Vital Signs Temp Pulse Resp BP Pulse Ox 98.2 F 85 16 135/64 H 97 06/02/21 11:48 06/02/21 11:48 06/02/21 11:48 06/02/21 11:48 06/02/21 11:48 Oxygen Flow Rate (L/min) 2 Oxygen Delivery Method Room Air Weight: 301 lb 2.423 oz Body Mass Index (BMI) 47.1 Intake & Output: Intake and Output for Last 24 Hours 05/31/21 06/01/21 06/02/21 23:59 23:59 23:59 Intake Total 2027.50 / 2227.50 3487.08 / 3687.08 2002.50 / 2002.50 Output Total 1050 / 1750 2150 / 2800 1350 / 1350 Balance 977.50 / 477.50 1337.08 / 887.08 652.50 / 652.50 Lab / Micro Data Result Diagrams: 06/02/21 06:00 06/02/21 06:00 Labs: Laboratory Results - last 24 hr 06/01/21 16:06: POC Glucose 185 H 06/01/21 16:10: Random Vancomycin 23.4 H 06/01/21 21:59: POC Glucose 104 06/02/21 06:00: WBC 8.7, RBC 3.28 L, Hgb 9.2 L, Hct 29.6 L, MCV 90.2, MCH 28.0, MCHC 31.1 L, RDW Std Deviation 53.6 H, RDW Coeff of Kevyn 16.0 H, Plt Count 263, MPV 10.6, Immature Gran % (Auto) 1.300 H, Neut % (Auto) 77.1 H, Lymph % (Auto) 7.1 L, [place] % (Auto) 11.3 H, Eos % (Auto) 2.4, Baso % (Auto) 0.8, Absolute Neuts (auto) 6.7, Absolute Lymphs (auto) 0.62 L, Nucleated RBC % 0 06/02/21 06:00: Sodium 136, Potassium 3.5, Chloride 107, Carbon Dioxide 23.0, Anion Gap 6, BUN 25 H, Creatinine 0.85, Estim Creat Clear Calc 59.89, Est GFR (MDRD) Af Amer 85, Est GFR (MDRD) Non-Af 70, BUN/Creatinine Ratio 29.4 H, Glucose 82, Calcium 8.4 L, Total Bilirubin 1.00, AST 17, ALT 11 L, Alkaline Phosphatase 101, Total Protein 6.2 L, Albumin 2.0 L, Globulin 4.2, Albumin/Globulin Ratio 0.5 L 06/02/21 06:00: Random Vancomycin 15.6 H 06/02/21 08:12: POC Glucose 76 06/02/21 11:07: POC Glucose 148 H Micro: Microbiology 05/31/21 13:50 Blood Culture (Wb) - Left Hand Blood Culture - Preliminary No growth in 48 hours. 05/31/21 13:35 Blood Culture (Wb) - Anticubital Right Blood Culture - Preliminary No growth in 48 hours. 05/30/21 00:20 Urine, Catheterized Urine Culture - Final Proteus mirabilis Klebsiella pneumoniae 05/29/21 23:02 Blood Culture (Wb) - Anticubital Left Bacteria Detection (PCR) - Final Staphylococcus aureus mecA Resistance Marker 05/29/21 23:02 Blood Culture (Wb) - Anticubital Left Blood Culture - Final Meth. resistant Staph. aureus 05/30/21 14:40 Blood Culture (Wb) - Anticubital Right Blood Culture - Final Staphylococcus aureus 05/30/21 14:30 Blood Culture (Wb) - Anticubital Right Blood Culture - Final Staphylococcus aureus 05/30/21 00:03 Blood Culture (Wb) - Anticubital Right Blood Culture - Final Staphylococcus aureus 05/29/21 22:55 Nasal Secretion SARS-CoV-2 Antigen (Rapid) - Final Physical Exam Narrative Physical exam General: Alert, Oriented x3, Cooperative HEENT: Atraumatic, PERRLA, EOMI, blurry vision on right. Mild redness on right bulbar conjunctiva. Response of visual field on right side inconsistent, sometimes sees full 5 fingers sometimes none not given finger movement or counting. Oral: No Gingival or Mucosal Lesions/ Ulcerations Neck: Supple, No JVD, Negative Carotid Bruits Lungs: Air entry diminished in bilateral lung bases. No crepitation/rhonchi Cardiovascular: Regular rate, Regular Rhythm, Normal S1, Normal S2, No murmurs Abdomen: Bowel Sounds Present, Soft, Non Tender, Non-Distended : No renal angle tenderness. No suprapubic tenderness. Extremities: No edema, Capillary Refill Less than 3 Seconds Skin: Right gluteal ulcer. Musculoskeletal: Tenderness present on deep tendon knee joints. Limited mobility. ROM restricted Neurological: Cranial nerves II-XII grossly intact, DTR 2+/4 and Symmetrical, Neuro grossly intact Psych/Mental Status: Anxious Assessment & Plan Assessment/Plan (1) MRSA bacteremia: (2) Cystitis: PLAN: 1. Acute diverticulitis: Patient on antibiotic ceftriaxone. No abdominal pain. 2. UTI: Urine is growing Proteus and Klebsiella pneumonia. The antibiotic Levaquin is narrowed to ceftriaxone to cover gram-negative including Proteus and ESBL negative Klebsiella pneumonia, each more than 100,000 colonies pansensitive.. 3. MRSA Bacteremia, unclear source: Culture from 05/31 is pending. Patient's prior 12/29 blood culture positive MRSA. 2D echo is ordered. ID consult tomorrow a.m. 4. Sepsis--ruled out: qSOFA of 1, therefore sepsis ruled out. 5. Pulmonary nodule Pneumonia ruled out Follow-up as outpatient 6. Diabetes mellitus type 2 Uncontrolled Check an A1c Continue with home regimen for now 7. Atrial fibrillation Rate controlled Anticoagulated with rivaroxaban 8. VTE prophylaxis: Not indicated as patient is already anticoagulated. 9. Right eye pain with mild pinkish injection/bulbar conjunctivitis: Patient response to finger counting, failed outpatient is inconsistent sometimes she sees full. My colleague discussed with Dr. Doyle social sciences professor whose opinion was his dry eyes and therefore recommended Lacri-Lube. No active concern for endophthalmitis or glaucoma. Neomycin/bacitracin/polymyxin eye ointment added. He said to call back if it gets worse or new changes. Charges/Coding Visit Charges Inpatient E&M: 22681 Subs Hosp L2
[2021-06-02] MEDS: 0.9% Normal Saline 1,000 ML 75 ML IV ×2 (12:40→22:27)
[2021-06-02] MEDS: Neomycin/Bacitracin/Polymyxin Opth. Ointment 1 APPLIC RIGHT EYE ×3 (15:42→22:27)
[2021-06-02 15:48] VITALS: BP 140/61; PULSE 69; RESP 16; TEMP 36.6; O2SAT 97
[2021-06-02 16:46] LABS: Bedside Glucose 235 mg/dL (70-110)
[2021-06-02] MEDS: Rivaroxaban 15 MG Tablet PO (17:30)
[2021-06-02] MEDS: oxyCODONE 5 MG Tablet 10 MG PO (20:15)
[2021-06-02 22:18] VITALS: BP 150/71; PULSE 82; RESP 18; TEMP 37.7; O2SAT 98
[2021-06-02] MEDS: Insulin Lispro 100 UNIT/ML INSULN.PEN SC (22:25)
[2021-06-02] MEDS: Atorvastatin Calcium 40 MG Tablet PO (22:28)
[2021-06-02 22:41] LABS: Bedside Glucose 252 mg/dL (70-110)
[2021-06-02] MEDS: MELATONIN 3 MG TABLET PO (23:11)
[2021-06-03 04:39] VITALS: BP 131/65; PULSE 80; RESP 18; TEMP 36.6; O2SAT 98
[2021-06-03] MEDS: Levothyroxine 100 MCG Tablet 200 MCG PO (04:43)
[2021-06-03] MEDS: Nystatin Powder 15gm Bottle 1 APPLIC TOPICAL ×3 (04:43→22:37)
[2021-06-03] MEDS: Neomycin/Bacitracin/Polymyxin Opth. Ointment 1 APPLIC RIGHT EYE ×5 (04:43→22:30)
[2021-06-03 06:30] LABS: Absolute Lymphocyte Count 0.78 X10^3/uL (0.83-4.51); Absolute Neutrophil Count 6.9 X10^3/uL (2.0-7.7); Basophil# 0.13 X10^3/uL; Basophil% 1.4 % (0-1); Eosinophil# 0.22 X10^3/uL; Eosinophils% 2.3 % (0-5); Hematocrit 34.4 % (37-47); Hemoglobin 9.7 g/dL (12.0-15.0); Lymphocyte # 0.78 X10^3/ul (0.83-4.51); Lymphocyte % 8.3 % (19-41); Mean Corp Hgb Conc 28.2 g/dL (32-36); Mean Corpuscular Volume 99.1 fL (81-99); Mean Platelet Vol. 10.6 fl (6.2-12.0); Monocyte# 1.08 X10^3/uL; Monocyte% 11.4 % (0-10); NRBC Flagged by Analyzer 0.2 % (0-5); Neutrophil # 6.86 X10^3/uL (2.7-7.7); Neutrophil % 72.6 % (47-70); Platelet Count 288 K/mm3 (150-450); RBC Distribution Width SD 58.9 fl (35.1-43.9); Red Blood Count 3.47 M/mm3 (4.2-5.4); White Blood Count 9.5 K/mm3 (4.4-11.0)
[2021-06-03 06:59] LABS: Anion Gap 6 (5-15); BUN 23 mg/dL (7-18); BUN/Creat Ratio 25.4 RATIO (10-20); Calcium,Total 8.3 mg/dL (8.5-10.1); Chloride 106 mmol/L (98-107); Creatinine, Serum 0.91 mg/dL (0.55-1.02); EST Glomerular Filtration Rate 65 mL/min (>60); Est Glom Filt Rate - Afr Amer 79 mL/min (>60); Estimated Creatinine Clearance 55.94 ml/min; Glucose 85 mg/dL (74-106); Potassium 3.4 mmol/L (3.5-5.1); Sodium Level 134 mmol/L (136-145)
[2021-06-03 07:20] VITALS: O2SAT 97
--- NOTE | 2021-06-03 08:13 | WOUNDNOTE ---
Removed LAUREL wraps. no drainage noted. few small scattered scabs noted. no open wounds. washed legs and feet with soap and water. pat dry. applied aloe vesta to bilateral lower legs and feet and wrapped with kerlix. applied the LAUREL wraps from the base of the toes to just below the knees. pt tolerated well. abdominal fold with less redness noted today as well. pt set up for breakfast at this time.
[2021-06-03] MEDS: Aspirin 81 MG TAB.CHEW PO (09:41)
[2021-06-03] MEDS: Ascorbic Acid 500 MG Tablet 1000 MG PO (09:41)
[2021-06-03] MEDS: Sotalol Hydrochloride 80 MG Tablet 120 MG PO ×2 (09:45→22:31)
[2021-06-03] MEDS: Fenofibrate 145 MG Tablet PO (09:45)
[2021-06-03] MEDS: Furosemide 40 MG Tablet PO (09:45)
[2021-06-03] MEDS: Insulin Lispro 100 UNIT/ML INSULN.PEN 30 UNIT SC (09:46)
[2021-06-03] MEDS: Menthol/Lanolin/Calamine/Znox 113 GM Tube 1 APPLIC TOPICAL ×3 (09:47→22:37)
[2021-06-03] MEDS: Petrolatum,White 3.75GM OPTH.TUBE 1 APPLIC OPHTHALMIC ×4 (09:49→22:33)
[2021-06-03] MEDS: Polyethylene Glycol 3350 17 GM PACKET PO (09:51)
[2021-06-03 10:08] VITALS: BP 128/57; PULSE 83; RESP 18; TEMP 37.4; O2SAT 97
--- NOTE | 2021-06-03 10:32 | CON.PCM.ID_ITS ---
Assessment & Plan Assessment/Plan (1) MRSA bacteremia: PLAN: Recent L hip replacement, hip doing well. Now with MRSA bacteremia and proteus/klebs uti, complicated by acute R eye vision loss with many dark floaters, eye pain and redness. MRSA bacteremia - repeat bcx neg at 48 hours. TTE showed no veg but some valve thickening and pulm htn seen. On vanc. uti - ucx with proteus/klebs, on ceftriaxone R eye vision loss - recommend ophtho eval dyan due to worsening symptoms. With bacteremia, h/o afib, severely diminished vision, reported many dark floaters, and sense of curtain coming down, concern for vascular source. May benefit from CT or MRI with contrast. Eye is red, mild pain. Unvaccinated for covid. Will follow, thank you, d/w Dr. Feng (2) Diabetes mellitus, type 2: QUALIFIERS: Diabetes mellitus residential insulin use: with residential use Diabetes mellitus complication status: with hyperglycemia Qualified Code(s): E11.65 - Type 2 diabetes mellitus with hyperglycemia; Z79.4 - residential (current) use of insulin (3) History of total left hip replacement: (4) Acute UTI: (5) Vision loss of right eye: HPI Consult Data Date of Consult: 06/03/21 HPI Narrative HPI Narrative: MADAN CARRION, is a 70 F who presented 05/30 with 3-4 days of not feeling well with abd/lower back pain, fever, and chills. Had L hip replacement in early April, sent to TCU here, went home but then got sick and came to hospital. Has not gotten covid vaccine. No dysuria. No other rash/aches. Admitted here on levaquin, changed to vanc/ceftriaxone. Since admission, developed many black floaters in R eye with eye pain/redness/blurry vision. Feels like curtain is coming down over R eye sometimes. Full ROS performed and neg except as noted above. [facility] Medical History Abrasion Anxiety Arthritis Cardiology follow-up encounter Cataract (lens) fragments in eye following cataract surgery, left eye Cataract (lens) fragments in eye following cataract surgery, right eye CPAP (continuous positive airway pressure) dependence Depression Dietary restriction DVT (deep venous thrombosis) History of atrial fibrillation History of edema History of pain when walking History of stress incontinence History of stress test Hx of echocardiogram Hx of necrotizing fasciitis Hypertension Insulin dependent diabetes mellitus Non-smoker Restless legs Shortness of breath on exertion Thyroid disease Walker as ambulation aid Wears dentures Home Medications aspirin 81 mg PO DAILY@0800 09/07/14 [History Last Taken 05/28/21] atorvastatin 40 mg PO QHS 09/07/14 [History Last Taken 05/28/21] fenofibric acid (choline) [Trilipix] 135 mg PO DAILY 09/07/14 [History Last Taken 05/28/21] sotalol [Betapace] 120 mg PO BID 09/07/14 [History Last Taken 05/28/21] levothyroxine 200 mcg PO DAILY 04/12/20 [History Last Taken 05/28/21] ascorbic acid (vitamin C) [Vitamin C] 1 cap PO DAILY 02/17/21 [History Last Evelio en 05/28/21] bumetanide 0.5 mg PO DAILY 02/17/21 [History Last Taken 05/28/21] insulin glargine U-300 conc [Toujeo SoloStar U-300 Insulin] 60 unit SUBCUT QHS 02/17/21 [History Last Taken 05/28/21] insulin lispro 30 unit SUBCUT BREAKFAST 02/17/21 [History Last Taken 05/28/21] insulin lispro 35 unit SUBCUT DINNER 02/17/21 [History Last Taken 05/28/21] methenamine hippurate 1 g PO QHS 02/17/21 [History Last Taken 05/28/21] acetaminophen 1,000 mg PO Q6H PRN PRN #0 tab 05/14/21 [Rx Last Taken Unknown] oxycodone 5 mg PO Q4H PRN PRN 7 Days #42 tab 05/14/21 [Rx Last Taken Unknown] insulin lispro 35 unit SUBCUT LUNCH 05/30/21 [History Last Taken 05/28/21] rivaroxaban [Xarelto] 15 mg PO DAILY 05/30/21 [History Last Taken 05/28/21] Allergy/AdvReac Type Severity Reaction Status Date / Time hydralazine HCl Allergy Other Verified 02/17/21 09:07 [From Apresoline] ondansetron [From Zofran] AdvReac Nausea Verified 06/02/21 04:40 Family History (Updated 05/30/21 @ 02:[address] Tyrese Byrd MD) Other Diabetes Heart disease Surgical History History of cardiac catheterization History of cardiac radiofrequency ablation History of hip replacement History of quadruple bypass History of total left hip replacement Hx of cholecystectomy Hx of colonoscopy Hx of tubal ligation Social History household members: none housing: house number of children: 3 Smoking Status: Never smoker Physical Exam Const alert and oriented x3 General Appearance: cooperative Exam Limitations: no limitations HEENT normocephalic and head/scalp atraumatic Eyes EOMs intact bilaterally Eyes Narrative: R eye redness, sees shadows, cannot count fingers with R eye, limited ability to see hand waving. Neck supple and No nodes Resp normal air movement and clear to auscultation bilaterally Cardio regular rate and regular rhythm GI normal to inspection, nondistended, normoactive bowel sounds Extremity General Extremity: edema Skin no rashes or lesions noted Skin Narrative: no splinter hemorrhages on hands or feet Neuro CN's II-XII intact bilaterally Lab / Micro Data Result Diagrams: 06/03/21 05:40 06/03/21 05:40 Labs: Laboratory Results - last 24 hr 06/02/21 11:07: POC Glucose 148 H 06/02/21 16:40: POC Glucose 235 H 06/02/21 22:22: POC Glucose 252 H 06/03/21 05:40: WBC 9.5, RBC 3.47 L, Hgb 9.7 L, Hct 34.4 L, MCV 99.1 H D, MCH 28.0, MCHC 28.2 L D, RDW Std Deviation 58.9 H, RDW Coeff of Kevyn 16.0 H, Plt Count 288, MPV 10.6, Immature Gran % (Auto) 4.000 H, Neut % (Auto) 72.6 H, Lymph % (Auto) 8.3 L, Casey % (Auto) 11.4 H, Eos % (Auto) 2.3, Baso % (Auto) 1.4 H, Absolute Neuts (auto) 6.9, Absolute Lymphs (auto) 0.78 L, Nucleated RBC % 0.2 06/03/21 05:40: Sodium 134 L, Potassium 3.4 L, Chloride 106, Carbon Dioxide 22.0, Anion Gap 6, BUN 23 H, Creatinine 0.91, Estim Creat Clear Calc 55.94, Est GFR (MDRD) Af Amer 79, Est GFR (MDRD) Non-Af 65, BUN/Creatinine Ratio 25.4 H, Glucose 85, Calcium 8.3 L Micro: Microbiology 05/31/21 13:50 Blood Culture (Wb) - Left Hand Blood Culture - Preliminary No growth in 48 hours. 05/31/21 13:35 Blood Culture (Wb) - Anticubital Right Blood Culture - Preliminary No growth in 48 hours. 05/30/21 00:20 Urine, Catheterized Urine Culture - Final Proteus mirabilis Klebsiella pneumoniae Radiology Impression Echocardiogram 06/02/21 07:50 Interpretation Summary The study was technically difficult. Left ventricular systolic function is normal. The estimated ejection fraction is 65 %. Moderate concentric left ventricular hypertrophy. The left atrium is moderately enlarged. The right atrium is mildly enlarged. There is moderate mitral annular calcification. Extension of the mitral annular calcification onto the base of the posterior mitral valve leaflet. The mitral valve chordae are thickened and/or calcified. The mitral papillary muscle appears thickened and/or calcified. Mild (1+) mitral valve insufficiency. Moderate (2+) eccentric tricuspid valve insufficiency. Mild diffuse aortic valve thickening. Mild focal aortic valve calcification. Trivial aortic valve insufficiency. Mild (1+) pulmonic valve insufficiency. Mildly dilated aortic root. Right ventricular systolic pressure estimated to be 61 mmHg c/w pulmonary hypertension. Transmitral diastolic flow velocities suggest diastolic dysfunction (pseudonormal pattern). Ordering Physician: Donny Feng Referring Physician: Maggi Chicas Performed By: Maggie Stone, RDCS, RVT
--- NOTE | 2021-06-03 10:57 | MRI_ITS ---
STUDY: MRI ORBITS WITH AND WITHOUT CONTRAST REASON FOR EXAM: Female, 70 years old. right eye vision loss, floaters, MRSA bacteremia, -- H/o left THR TECHNIQUE: Standardized fat and water weighted pulse sequences were obtained in all 3 orthogonal planes, pre-and post contrast administration. IV Yes YES was administered for the contrast portion of the examination. COMPARISON: None. FINDINGS: Normal bilateral globes. Bilateral lens implants. Normal bilateral optic nerve sheath complexes and optic nerves. Normal bilateral intraconal and extraconal spaces. Normal bilateral extraocular muscles. Normal optic chiasm and post-chiasmatic tracts. Normal sella turcica, pituitary gland, infundibular stalk, and hypothalamus. Normal bilateral cavernous sinuses. Normal tectal plate and pineal gland. Normal flow voids within the major intracranial circulation suggesting patency by spin echo criteria. Normal size of the ventricles and extra-axial spaces for the patient''s age. Normal white matter tracts of the supratentorial brain. Normal bilateral basal ganglia. Normal thalami. There is no extra-axial fluid accumulation. Normal midbrain, sami and medulla. Normal cerebellum. Normal basal cisterns. MRI/Orbit Face Neck W/WO Contrast IMPRESSION: Normal enhanced and unenhanced MRI of the orbits. Electronically Signed: Danny Live MD at 14:56 EDT Tel , Service support ,
[2021-06-03 11:26] LABS: Bedside Glucose 149 mg/dL (70-110)
--- NOTE | 2021-06-03 13:10 | PCM.PN.HOSP ---
Subjective Subjective Patient T-max 99.8 Fahrenheit last night. Patient has poor mobility and complain of pain over left hip on movement. Complain of floaters loss of vision although her responses not consistent. She also complained to the pain in the left eye to the nursing staff. Discussed with ID. Internet Sales Representative called and MRI of orbit ordered Objective Data Objective Data Vital Signs: Vital Signs Temp Pulse Resp BP Pulse Ox 99.4 F H 83 18 128/57 H 97 06/03/21 10:08 06/03/21 10:08 06/03/21 10:08 06/03/21 10:08 06/03/21 10:08 Oxygen Flow Rate (L/min) 2 Oxygen Delivery Method Room Air Weight: 301 lb 2.423 oz Body Mass Index (BMI) 47.1 Intake & Output: Intake and Output for Last 24 Hours 06/01/21 06/02/21 06/03/21 23:59 23:59 23:59 Intake Total 3487.08 / 3687.08 3853.75 / 3853.75 1575 / 1575 Output Total 2150 / 2800 3100 / 3100 500 / 500 Balance 1337.08 / 887.08 753.75 / 753.75 1075 / 1075 Lab / Micro Data Result Diagrams: 06/03/21 05:40 06/03/21 05:40 Labs: Laboratory Results - last 24 hr 06/02/21 16:40: POC Glucose 235 H 06/02/21 22:22: POC Glucose 252 H 06/03/21 05:40: WBC 9.5, RBC 3.47 L, Hgb 9.7 L, Hct 34.4 L, MCV 99.1 H D, MCH 28.0, MCHC 28.2 L D, RDW Std Deviation 58.9 H, RDW Coeff of Kevyn 16.0 H, Plt Count 288, MPV 10.6, Immature Gran % (Auto) 4.000 H, Neut % (Auto) 72.6 H, Lymph % (Auto) 8.3 L, Kimble % (Auto) 11.4 H, Eos % (Auto) 2.3, Baso % (Auto) 1.4 H, Absolute Neuts (auto) 6.9, Absolute Lymphs (auto) 0.78 L, Nucleated RBC % 0.2 06/03/21 05:40: Sodium 134 L, Potassium 3.4 L, Chloride 106, Carbon Dioxide 22.0, Anion Gap 6, BUN 23 H, Creatinine 0.91, Estim Creat Clear Calc 55.94, Est GFR (MDRD) Af Amer 79, Est GFR (MDRD) Non-Af 65, BUN/Creatinine Ratio 25.4 H, Glucose 85, Calcium 8.3 L 06/03/21 09:36: POC Glucose 149 H Micro: Microbiology 05/31/21 13:50 Blood Culture (Wb) - Left Hand Blood Culture - Preliminary No growth in 48 hours. 05/31/21 13:35 Blood Culture (Wb) - Anticubital Right Blood Culture - Preliminary No growth in 48 hours. 05/30/21 00:20 Urine, Catheterized Urine Culture - Final Proteus mirabilis Klebsiella pneumoniae 05/29/21 23:02 Blood Culture (Wb) - Anticubital Left Bacteria Detection (PCR) - Final Staphylococcus aureus mecA Resistance Marker 05/29/21 23:02 Blood Culture (Wb) - Anticubital Left Blood Culture - Final Meth. resistant Staph. aureus 05/30/21 14:40 Blood Culture (Wb) - Anticubital Right Blood Culture - Final Staphylococcus aureus 05/30/21 14:30 Blood Culture (Wb) - Anticubital Right Blood Culture - Final Staphylococcus aureus 05/30/21 00:03 Blood Culture (Wb) - Anticubital Right Blood Culture - Final Staphylococcus aureus 05/29/21 22:55 Nasal Secretion SARS-CoV-2 Antigen (Rapid) - Final Physical Exam Narrative Physical exam General: Alert, Oriented x3, Cooperative HEENT: Atraumatic, PERRLA, EOMI, blurry vision on right. Mild redness on right bulbar conjunctiva. Right eye visual loss, intermittent and floaters. Oral: No Gingival or Mucosal Lesions/ Ulcerations Neck: Supple, No JVD, Negative Carotid Bruits Lungs: Air entry diminished in bilateral lung bases. No crepitation/rhonchi Cardiovascular: Regular rate, Regular Rhythm, Normal S1, Normal S2, No murmurs Abdomen: Bowel Sounds Present, Soft, Non Tender, Non-Distended : No renal angle tenderness. No suprapubic tenderness. Extremities: No edema, Capillary Refill Less than 3 Seconds Skin: Right gluteal ulcer. Musculoskeletal: Tenderness present on deep tendon knee joints. Limited mobility. ROM restricted. Recent left hip replacement. Neurological: Cranial nerves II-XII grossly intact, DTR 2+/4 and Symmetrical, Neuro grossly intact Psych/Mental Status: Anxious Assessment & Plan Assessment/Plan (1) MRSA bacteremia: (2) Cystitis: PLAN: 1. Acute diverticulitis: Patient on antibiotic ceftriaxone. No abdominal pain. 2. UTI: Urine is growing Proteus and Klebsiella pneumonia. The antibiotic Levaquin is narrowed to ceftriaxone to cover gram-negative including Proteus and ESBL negative Klebsiella pneumonia, each more than 100,000 colonies pansensitive.. 3. MRSA Bacteremia, unclear source: Patient's prior 12/29 blood culture positive MRSA. 06/03: TTE showed no vegetation, but thickened mitral valve chordae and calcification. Mild MR, moderate TR. EF 65%, moderate concentric LVH. Blood culture from 05/31 - for 48 hours x 2. Discussed with the ID and lodging manager consulted and MRI orbit ordered as mentioned below. 4. Sepsis--ruled out: qSOFA of 1, therefore sepsis ruled out. 5. Pulmonary nodule Pneumonia ruled out Follow-up as outpatient 6. Diabetes mellitus type 2 Uncontrolled Check an A1c Continue with home regimen for now 7. Atrial fibrillation Rate controlled Anticoagulated with rivaroxaban 8. VTE prophylaxis: Not indicated as patient is already anticoagulated. 9. Right eye pain with mild pinkish injection/bulbar conjunctivitis: Patient response to finger counting, failed outpatient is inconsistent sometimes she sees full. My colleague discussed with Dr. Doyle lodging manager whose opinion was his dry eyes and therefore recommended Lacri-Lube. No active concern for endophthalmitis or glaucoma. Neomycin/bacitracin/polymyxin eye ointment added. 06/03: Internet Sales Representative called and discussed with Dr. Juarez. He agreed to come and evaluate the patient. MRI of the orbit with and without contrast ordered as per recommendation. MRI is done but not reported. Dr. Doyle was busy in surgery. Total time of the visit including total time spent in counseling or coordination of care, (more than 50% of the total time, spent in obtaining medical information from nurses and other ancillary care providers,explaining to the patient about labs, imaging, diagnosis and management), discussion with ID and lodging manager consultants, review of labs and imaging is 30 minutes. Charges/Coding Visit Charges Inpatient E&M: 23098 Subs Hosp L3
[2021-06-03] MEDS: 0.9% Saline Lock 10 ML Syringe IV (14:02)
[2021-06-03 14:22] VITALS: BP 120/52; PULSE 68; RESP 18; TEMP 36.6; O2SAT 95
--- NOTE | 2021-06-03 15:37 | CASEMGMT ---
Pt screened with [facility] Palliative Care Screening Tool due to strata 3, pt met criteria. Order received and notified Whitney at [facility], referral faxed as well.
[2021-06-03 15:52] LABS: Bedside Glucose 126 mg/dL (70-110)
--- NOTE | 2021-06-03 16:17 | CASEMGMT ---
Social Work Note SW reviewed PT/OT notes. Pt assist of 1-2, walking 5-10ft. SW in to speak with pt. Pt's son Bill present in room. SW spoke with pt about recommendation of SNF. Pt states she will think about it, agreeable to this worker putting pt's name on [facility] TCU list. SW placed a call to Bella with TCU and provided referral. TCU able to accept pt pending pre-cert. SW to follow up with pt as pt progresses to confirm discharge plans. Plan: ALEXANDRU Stevenson [employer] SUPERVISOR, CLINICAL ESTHETICIAN
[2021-06-03] MEDS: Acetaminophen 500 MG Tablet 1000 MG PO (16:24)
[2021-06-03] MEDS: 0.9% Normal Saline 1,000 ML 75 ML IV (16:24)
[2021-06-03] MEDS: Rivaroxaban 15 MG Tablet PO (16:26)
[2021-06-03 17:57] VITALS: BP 122/48; PULSE 80; RESP 18; TEMP 36.8; O2SAT 95
[2021-06-03 18:11] LABS: Bedside Glucose 152 mg/dL (70-110)
[2021-06-03 20:42] LABS: Vancomycin, Trough Level 24.1 ug/mL (5.0-15.0)
[2021-06-03] MEDS: Atorvastatin Calcium 40 MG Tablet PO (22:31)
[2021-06-03] MEDS: Insulin Lispro 100 UNIT/ML INSULN.PEN SC (22:34)
[2021-06-03 23:01] LABS: Bedside Glucose 212 mg/dL (70-110)
[2021-06-03 23:02] VITALS: BP 165/69; PULSE 51; RESP 18; TEMP 36.8; O2SAT 98
[2021-06-03] MEDS: oxyCODONE 5 MG Tablet 10 MG PO (23:25)
--- NOTE | 2021-06-04 07:00 | PCM.DC.SUM ---
Providers Date of Admission: 05/30/21 Primary Care Physician: Dr. 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 Routine Comment: 06/02/21 07:52 Consult: Infectious Disease Routine Consulting Provider: Elroy Judd Reason for Consult: mrsa bactermia with Klebseilla and Proteus UTI EMERGENT Consult: No MD Notified: Yes Date Notified: 06/03/21 Time Notified: 07:08 Method of Notification: via answering service 06/03/21 10:57 Consult: Ophthamology Routine Consulting Provider: Augie Juarez Reason for Consult: right eye vision loss, floaters EMERGENT Consult: Yes MD Notified: Yes Date Notified: 06/03/21 Time Notified: 11:00 Method of Notification: Verbal Reason For Visit: ACUTE CYSTITIS Diagnosis Discharge Diagnosis (1) MRSA bacteremia: Status: Acute Code(s): R78.81 - Bacteremia; B95.62 - Methicillin resistant Staphylococcus aureus infection as the cause of diseases classified elsewhere (2) Cystitis: Status: Acute Code(s): N30.90 - Cystitis, unspecified without hematuria Medications at Discharge Home Medications aspirin 81 mg PO DAILY@0800 09/07/14 atorvastatin 40 mg PO QHS 09/07/14 fenofibric acid (choline) [Trilipix] 135 mg PO DAILY 09/07/14 sotalol [Betapace] 120 mg PO BID 09/07/14 levothyroxine 200 mcg PO DAILY 04/12/20 ascorbic acid (vitamin C) [Vitamin C] 1 cap PO DAILY 02/17/21 bumetanide 0.5 mg PO DAILY 02/17/21 insulin glargine U-300 conc [Toujeo SoloStar U-300 Insulin] 60 unit SUBCUT QHS 02/17/21 insulin lispro 30 unit SUBCUT BREAKFAST 02/17/21 insulin lispro 35 unit SUBCUT DINNER 02/17/21 methenamine hippurate 1 g PO QHS 02/17/21 acetaminophen 1,000 mg PO Q6H PRN PRN #0 tab 05/14/21 oxycodone 5 mg PO Q4H PRN PRN 7 Days #42 tab 05/14/21 insulin lispro 35 unit SUBCUT LUNCH 09/03/21 rivaroxaban [Xarelto] 15 mg PO DAILY 05/30/21 Hospital Course Summary of Care Provided Hospital Course: This 70 -year-old female admitted with left lower quadrant abdominal with history of recent left hip replacement at [facility] on April 30, 2021 and subsequent rehab in TCU in [facility]. ID is being consulted. 1. Acute diverticulitis: Patient on antibiotic ceftriaxone. No abdominal pain. CT abdomen mainly showed diverticulosis with mild stranding of small segment of ascending colon. Patient on antibiotic. Currently no abdominal pain 2. UTI: Urine is growing Proteus and Klebsiella pneumonia. The antibiotic Levaquin is narrowed to ceftriaxone to cover gram-negative including Proteus and ESBL negative Klebsiella pneumonia, each more than 100,000 colonies pansensitive. 3. MRSA Bacteremia, unclear source: Patient's prior 12/29 blood culture positive MRSA. 06/03: TTE showed no vegetation, but thickened mitral valve chordae and calcification. Mild MR, moderate TR. EF 65%, moderate concentric LVH. Blood culture from 05/31 - for 48 hours x 2. Discussed with the ID and floor coverings salesperson consulted and MRI orbit ordered as mentioned below. 4. Sepsis--ruled out: qSOFA of 1, therefore sepsis ruled out. 5. 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 I talked to Dr. Albert Juarez in detail yesterday and evaluated the patient. As per him patient has endophthalmitis with pus, vitreous opacity, hypopyon and iritis suggestive of endophthalmitis. Patient needs transfer to tertiary care where there is a facility of inpatient retina specialist for ophthalmic injections. I talked to [place] general coordinator for transfer on 06/03/2021 soon after floor coverings salesperson discussion with me. The patient experience coordinator was not sure therefore she talk to floor coverings salesperson first and he accepted the patient. Finally the patient is going to be admitted under the hospitalist service Dr. Azul and floor coverings salesperson to be consulted. Patient is pending transfer when bed is available. Earlier during the day, MRI of the orbit with and without contrast was ordered as per floor coverings salesperson Dr. Juarez recommendation and reported normal. Earlier, floor coverings salesperson first Dr. Doyle was consulted on the weekend who recommended Lacri-Lube. At that time, floor coverings salesperson opinion was no active concern for endophthalmitis or glaucoma. Neomycin/bacitracin/polymyxin eye ointment added. Pulmonary nodule Pneumonia ruled out Follow-up as outpatient 6. Diabetes mellitus type 2 Uncontrolled Continue with home regimen for now 7. Atrial fibrillation Rate controlled Anticoagulated with rivaroxaban 8. VTE prophylaxis: Not indicated as patient is already anticoagulated. Patient is transferred to [facility] under the hospitalist service with floor coverings salesperson consult. Time spent more than 30 minutes in discussion with patient experience coordinator, [facility], hospitalist team and exchange of clinical information. Clinical Impression(s) from Imaging Studies Abdomen/Pelvis CT 05/29/21 22:46 IMPRESSION: Diverticulosis. There is some mild stranding adjacent to a small segment of ascending colon. Findings could represent diverticulitis. There is no free air identified. No rim-enhancing fluid collections. Small LEFT pleural effusion. LEFT lower lobe atelectasis/infiltrate. Pleural-based nodularity LEFT lower lobe. Recommend a follow-up CT scan of the chest 4-6 weeks to ensure resolution. Neoplastic process cannot be totally excluded. Hepatosplenomegaly. Again noted RIGHT anterior abdominal wall subcutaneous soft tissue thickening. Similar to prior study. Correlate clinically. Unknown clinical significance on CT scan. Recommend correlation to exclude any skin neoplastic process. Again noted ossific structure within the spinal canal at the level T10. Causes canal narrowing and mass effect on the adjacent spinal cord. Correlate with patient''s symptomology. MRI with and without IV contrast may be of benefit in the appropriate clinical setting. Other findings as discussed above. Electronically Signed: Roger Becker MD at 0:53 EDT Tel , Service support , Chest X-Ray 05/30/21 00:21 IMPRESSION: Right lateral midlung and left peripheral lower lung airspace opacities concerning for pneumonia, compatible with atypical viral pneumonia in the appropriate setting. Cardiomegaly without florid edema. at 0134 Reported and signed by: Rohit Sandy MD Electronically Signed: Rohit Sandy MD at 1:32 EDT Tel , Service support , Echocardiogram 06/02/21 07:50 Interpretation Summary The study was technically difficult. Left ventricular systolic function is normal. The estimated ejection fraction is 65 %. Moderate concentric left ventricular hypertrophy. The left atrium is moderately enlarged. The right atrium is mildly enlarged. There is moderate mitral annular calcification. Extension of the mitral annular calcification onto the base of the posterior mitral valve leaflet. The mitral valve chordae are thickened and/or calcified. The mitral papillary muscle appears thickened and/or calcified. Mild (1+) mitral valve insufficiency. Moderate (2+) eccentric tricuspid valve insufficiency. Mild diffuse aortic valve thickening. Mild focal aortic valve calcification. Trivial aortic valve insufficiency. Mild (1+) pulmonic valve insufficiency. Mildly dilated aortic root. Right ventricular systolic pressure estimated to be 61 mmHg c/w pulmonary hypertension. Transmitral diastolic flow velocities suggest diastolic dysfunction (pseudonormal pattern). Ordering Physician: Donny Feng Referring Physician: Maggi Chicas Performed By: Maggie Stone, LUICS, RVT Face/Head/Neck MRI 06/03/21 10:57 IMPRESSION: Normal enhanced and unenhanced MRI of the orbits. Electronically Signed: Danny Live MD at 14:56 EDT Tel , Service support , ADDENDUM: 06/03/21 1756 Physical Exam Narrative Patient was discharged about 12 midnight probably 12:10 AM. My exam findings and last progress note. Weight / BMI Weight Weight: 301 lb 2.423 oz Body Mass Index (BMI) 47.1 ABG / Lab / Microbiology Data Result Diagrams: 06/03/21 05:40 06/03/21 05:40 Laboratory: Laboratory Results - last 24 hr 06/03/21 09:36: POC Glucose 149 H 06/03/21 15:42: POC Glucose 126 H 06/03/21 18:01: POC Glucose 152 H 06/03/21 19:21: Vancomycin Trough 24.1 H 06/03/21 22:28: POC Glucose 212 H Microbiology: Microbiology 05/31/21 13:50 Blood Culture (Wb) - Left Hand Blood Culture - Preliminary No growth in 48 hours. 05/31/21 13:35 Blood Culture (Wb) - Anticubital Right Blood Culture - Preliminary No growth in 48 hours. 05/30/21 00:20 Urine, Catheterized Urine Culture - Final Proteus mirabilis Klebsiella pneumoniae 05/29/21 23:02 Blood Culture (Wb) - Anticubital Left Bacteria Detection (PCR) - Final Staphylococcus aureus mecA Resistance Marker 05/29/21 23:02 Blood Culture (Wb) - Anticubital Left Blood Culture - Final Meth. resistant Staph. aureus 05/30/21 14:40 Blood Culture (Wb) - Anticubital Right Blood Culture - Final Staphylococcus aureus 05/30/21 14:30 Blood Culture (Wb) - Anticubital Right Blood Culture - Final Staphylococcus aureus 05/30/21 00:03 Blood Culture (Wb) - Anticubital Right Blood Culture - Final Staphylococcus aureus 05/29/21 22:55 Nasal Secretion SARS-CoV-2 Antigen (Rapid) - Final Radiography Diagnostic Testing: Radiology Impression Face/Head/Neck MRI 06/03/21 10:57 IMPRESSION: Normal enhanced and unenhanced MRI of the orbits. Electronically Signed: Danny Live MD at 14:56 EDT Tel , Service support , ADDENDUM: 06/03/21 1754 Meaningful Use Info Meaningful Use Diagnoses (Choose all that apply): None applicable Discharge Plan Admission Admit Date/Time: 05/30/21 02:08 Primary Reason for Your Visit: MRSA bacteremia Attending Provider: Donny Feng Primary Care Provider: Maggi Chicas Consulting Providers: Elroy Judd ; Augie Juarez Instructions Patient Instructions: ED Chest Pain, Noncardiac Discharge Orders/Prescriptions Prescriptions: No Action atorvastatin 40 MG tablet 40 mg PO QHS RF: 0 sotalol [Betapace] 120 MG tablet 120 mg PO BID RF: 0 aspirin 81 MG tablet,chewable 81 mg PO DAILY@0800 RF: 0 fenofibric acid (choline) [Trilipix] 135 MG capsule,delayed release(DR/EC) 135 mg PO DAILY RF: 0 levothyroxine 175 MCG tablet 200 mcg PO DAILY RF: 0 methenamine hippurate 1 gram Tablet 1 g PO QHS RF: 0 bumetanide 0.5 mg Tablet 0.5 mg PO DAILY RF: 0 insulin lispro 100 unit/mL Solution 30 unit SUBCUT BREAKFAST RF: 0 insulin lispro 100 unit/mL Solution 35 unit SUBCUT DINNER RF: 0 Vitamin C 1,000 mg Capsule, Extended Release 1 cap PO DAILY RF: 0 Toujeo SoloStar U-300 Insulin 300 unit/mL (1.5 mL) Insulin Pen 60 unit SUBCUT QHS RF: 0 oxycodone 5 mg Tablet 5 mg PO Q4H PRN PRN (Reason: Pain Score 6-10) 7 Days Qty: 42 RF: 0 acetaminophen 500 mg Tablet 1,000 mg PO Q6H PRN PRN (Reason: Pain Score 1-5) Qty: 0 RF: 0 insulin lispro 100 unit/mL Insulin Pen 35 unit SUBCUT LUNCH RF: 0 Xarelto 15 mg tablet 15 mg PO DAILY RF: 0 Referrals / Follow Up: Maggi Chicas, [Primary Care Provider] - Disposition Disposition (needs filled in before D/C Order can be placed): Home Health Service Charges/Coding Visit Charges Inpatient E&M: 72742 Disch Hosp
[2021-06-04 08:11] LABS: Bedside Glucose 69 mg/dL (70-110)
[2021-06-04 08:11] LABS: Bedside Glucose 67 mg/dL (70-110)
[2021-06-04 08:11] LABS: Bedside Glucose 67 mg/dL (70-110)
[2021-06-04 08:11] LABS: Bedside Glucose 75 mg/dL (70-110)
== END 2021-06-04 00:03 | disposition home health service (06) | DRG 392 ==
LOC: ED 05-30 01:59 → MS3 05-30 02:10
PROVIDERS: Admitting Provider Hospitalist; Emergency Provider Emergency Medicine; Visit Provider Internal Medicine
DX: K57.92 Diverticulitis of intestine, part unspecified, without perforation or abscess without bleeding (principal); R78.81 Bacteremia; H44.001 Unspecified purulent endophthalmitis, right eye; J98.11 Atelectasis; Z68.42 Body mass index [BMI] 45.0-49.9, adult; N30.90 Cystitis, unspecified without hematuria; B96.4 Proteus (mirabilis) (morganii) as the cause of diseases classified elsewhere; H43.391 Other vitreous opacities, right eye; I48.91 Unspecified atrial fibrillation; F41.9 Anxiety disorder, unspecified; F32.9 Major depressive disorder, single episode, unspecified; H10.9 Unspecified conjunctivitis; E11.65 Type 2 diabetes mellitus with hyperglycemia; R91.1 Solitary pulmonary nodule; B95.62 Methicillin resistant Staphylococcus aureus infection as the cause of diseases classified elsewhere; Z96.642 Presence of left artificial hip joint; Z28.3 Underimmunization status; Z79.4 Long term (current) use of insulin; E11.649 Type 2 diabetes mellitus with hypoglycemia without coma; E66.9 Obesity, unspecified; Z79.01 Long term (current) use of anticoagulants; Z79.82 Long term (current) use of aspirin; Z79.890 Hormone replacement therapy; Z83.3 Family history of diabetes mellitus; Z87.39 Personal history of other diseases of the musculoskeletal system and connective tissue; Z90.49 Acquired absence of other specified parts of digestive tract; Z98.51 Tubal ligation status; I10 Essential (primary) hypertension; G25.81 Restless legs syndrome
CPT/HCPCS: 36415; 70543; 71045; 74177; 80048; 80053; 80202; 81001; 82962; 83605; 83690; 83880; 84484; 85025; 87040; 87077; 87086; 87088; 87149; 87186; 87426; 93005; 93306; 97110; 97162; 97166; 97530; 97535; 99251; 99285; A9575; J7030; J7040; J7050; Q9967; A4216; G0463; J0696; J2405

== ENCOUNTER → 2021-07-14 | Outpatient (CLI) | payer MEDICARE, SELFPAY ==
[2021-07-14 10:58] LABS: Absolute Lymphocyte Count 0.69 X10^3/uL (0.83-4.51); Absolute Neutrophil Count 4.9 X10^3/uL (2.0-7.7); Basophil# 0.01 X10^3/uL; Basophil% 0.2 % (0-1); Eosinophil# 0.01 X10^3/uL; Eosinophils% 0.2 % (0-5); Hematocrit 31.8 % (37-47); Hemoglobin 9.8 g/dL (12.0-15.0); Lymphocyte # 0.69 X10^3/ul (0.83-4.51); Lymphocyte % 11.1 % (19-41); Mean Corp Hgb Conc 30.8 g/dL (32-36); Mean Corpuscular Hgb 27.1 pg (27.0-32.0); Mean Corpuscular Volume 88.1 fL (81-99); Mean Platelet Vol. 11.2 fl (6.2-12.0); Monocyte# 0.59 X10^3/uL; Monocyte% 9.5 % (0-10); NRBC Flagged by Analyzer 0 % (0-5); Neutrophil # 4.87 X10^3/uL (2.7-7.7); Neutrophil % 78.7 % (47-70); Platelet Count 247 K/mm3 (150-450); RBC Distribution Width CV 16.8 % (11.6-14.6); RBC Distribution Width SD 53.9 fl (35.1-43.9); Red Blood Count 3.61 M/mm3 (4.2-5.4); White Blood Count 6.2 K/mm3 (4.4-11.0)
[2021-07-14 11:12] LABS: Creatinine, Serum 0.87 mg/dL (0.55-1.02); EST Glomerular Filtration Rate 68 mL/min (>60); Est Glom Filt Rate - Afr Amer 83 mL/min (>60)
[2021-07-14 11:18] LABS: Vancomycin, Trough Level 15.3 ug/mL (5.0-15.0)
== END | disposition home or self-care (01) ==
LOC: LABSPEC 10:50
DX: I25.10 Atherosclerotic heart disease of native coronary artery without angina pectoris (principal); Z51.81 Encounter for therapeutic drug level monitoring; I47.1 Supraventricular tachycardia
CPT/HCPCS: 80202; 82565; 85025

== ENCOUNTER 2021-09-02 17:51 | Emergency (ER) | payer MEDICARE, SELFPAY ==
[2021-09-02 17:52] VITALS: BP 117/81; PULSE 105; RESP 24; TEMP 37.2; O2SAT 100; BMI 45.6
[2021-09-02] MEDS: Acetaminophen 500 MG Tablet 1000 MG PO (18:11)
[2021-09-02 18:28] LABS: Absolute Lymphocyte Count 0.76 X10^3/uL (0.83-4.51); Absolute Neutrophil Count 10.8 X10^3/uL (2.0-7.7); Basophil# 0.09 X10^3/uL; Basophil% 0.7 % (0-1); Eosinophil# 0.32 X10^3/uL; Eosinophils% 2.5 % (0-5); Hemoglobin 10.2 g/dL (12.0-15.0); Lymphocyte # 0.76 X10^3/ul (0.83-4.51); Lymphocyte % 5.9 % (19-41); Mean Corpuscular Volume 86.7 fL (81-99); Mean Platelet Vol. 10.1 fl (6.2-12.0); Monocyte# 0.81 X10^3/uL; Monocyte% 6.3 % (0-10); NRBC Flagged by Analyzer 0 % (0-5); Neutrophil # 10.77 X10^3/uL (2.7-7.7); Neutrophil % 84.1 % (47-70); Platelet Count 352 K/mm3 (150-450); RBC Distribution Width CV 16.4 % (11.6-14.6); RBC Distribution Width SD 52.7 fl (35.1-43.9); Red Blood Count 3.92 M/mm3 (4.2-5.4); White Blood Count 12.8 K/mm3 (4.4-11.0)
[2021-09-02 18:40] LABS: Anion Gap 8 (5-15); BUN 19 mg/dL (7-18); BUN/Creat Ratio 18.8 RATIO (10-20); Calcium,Total 9.4 mg/dL (8.5-10.1); Chloride 105 mmol/L (98-107); Creatinine, Serum 1.01 mg/dL (0.55-1.02); EST Glomerular Filtration Rate 57 mL/min (>60); Est Glom Filt Rate - Afr Amer 70 mL/min (>60); Estimated Creatinine Clearance 52.28 ml/min; Glucose 116 mg/dL (74-106); Potassium 3.8 mmol/L (3.5-5.1); Sodium Level 138 mmol/L (136-145)
--- NOTE | 2021-09-02 19:03 | RAD_ITS ---
STUDY: X-RAY CHEST REASON FOR EXAM: Female, 70 years old. COUGH shaking nausea vomiting bodyaches stomach pain TECHNIQUE: Frontal portable view of the chest COMPARISON: 30 May 2021 FINDINGS: There are ill-defined interstitial opacities bilaterally, possibly artifactual versus less likely early viral pneumonia or pulmonary edema. There is no pneumothorax, pleural effusions. The heart is moderately enlarged with sternotomy wires. Appearance is comparable to prior. RAD/Chest 1 View IMPRESSION: 1. Questionable interstitial findings, inconclusive. Consider CT for confirmation due to possibility of viral pneumonia. 2. Moderate cardiomegaly, possibly mild pulmonary edema. Electronically Signed: Shabnam Peterson MD at 20:07 EST Tel , Service support ,
[2021-09-02 20:48] VITALS: BP 115/49; PULSE 89; RESP 15; TEMP 37.1; O2SAT 95
[2021-09-02 20:50] VITALS: RESP 13
--- NOTE | 2021-09-02 20:55 | CT_ITS ---
STUDY: CT ABDOMEN AND PELVIS WITHOUT CONTRAST REASON FOR EXAM: Female, 70 years old. right flank pain RADIATION DOSAGE (If Supplied By Facility): CTDIvol = ( 31.19 ) mGy, DLP = ( 1515.57 ) mGycm TECHNIQUE: Transaxial images were obtained from the dome of the diaphragm to the symphysis pubis without oral contrast, and without intravenous contrast. Sagittal and coronal images were reconstructed. Individualized dose optimization techniques were used for this CT. COMPARISON: CT of abdomen and pelvis dated May 29, 2021 FINDINGS: A small loculated pleural effusion is seen in the left lower lobe. Interstitial fibrotic scarring is also visualized in the bilateral lower lobes. A small cyst is seen in the right lower lobe. Normal liver. There is non-visualization of the gallbladder, which may be secondary to either contraction or a prior cholecystectomy. Normal spleen. Normal pancreas. Normal bilateral adrenal glands. Normal right kidney. Normal left kidney. There is a small hiatal hernia. Normal small intestine. Normal colon. The appendix is visualized and appears normal. There is diffuse atherosclerotic calcification of the abdominal aorta with elongation and tortuosity, but without a demonstrated aneurysm. Normal inferior vena cava. Normal retroperitoneum. Normal urinary bladder. Grossly unremarkable uterus and adnexa. Moderate focal subcutaneous edema of the right anterior abdominal wall reidentified likely sequela of therapeutic injections or another chronic process. There are diffuse degenerative changes of the visualized lumbar spine. Stable left hip hardware/prosthesis. CT/Abdomen/Pelvis without Cont IMPRESSION: 1. No visualized acute or significant process of the abdomen and pelvis. 2. Small loculated pleural effusion of the left lower lobe. Electronically Signed: Michel Qureshi MD at 22:28 EST , Service support ,
--- NOTE | 2021-09-02 20:57 | EX.ED.DYSGE1 ---
HPI History of Present Illness Chief Complaint: Nausea/Vomiting Informant: patient and family Onset/Context/Timing Onset: Yesterday Narrative Narrative: Patient presents secondary abdominal pain and vomiting. Patient states yesterday she does have an upset stomach but today had more suprapubic pain that wrapped around to the right flank. She had nausea and vomiting. No fever or chills. Patient states that she was admitted a few months ago with a UTI and infection in her bloodstream. [facility] Medical History Abrasion Acute UTI Anxiety Arthritis Cardiology follow-up encounter Cataract (lens) fragments in eye following cataract surgery, left eye Cataract (lens) fragments in eye following cataract surgery, right eye CPAP (continuous positive airway pressure) dependence Cystitis Depression Diabetes mellitus, type 2 Dietary restriction Diverticulitis DVT (deep venous thrombosis) Generalized weakness History of atrial fibrillation History of edema History of pain when walking History of stress incontinence History of stress test Hx of echocardiogram Hx of necrotizing fasciitis Hypertension Insulin dependent diabetes mellitus Nausea & vomiting Non-smoker Pneumonia Restless legs Shortness of breath on exertion Thyroid disease Walker as ambulation aid Wears dentures Home Medications aspirin 81 mg PO DAILY@0800 09/07/14 [History Last Taken 05/28/21] atorvastatin 40 mg PO QHS 09/07/14 [History Last Taken 05/28/21] fenofibric acid (choline) [Trilipix] 135 mg PO DAILY 09/07/14 [History Last Taken 05/28/21] sotalol [Betapace] 80 mg PO BID 09/07/14 [History Last Taken 05/28/21] levothyroxine 200 mcg PO DAILY 04/12/20 [History Last Taken 05/28/21] ascorbic acid (vitamin C) [Vitamin C] 1 cap PO DAILY 02/17/21 [History Last Taken 05/28/21] bumetanide 0.5 mg PO DAILY 02/17/21 [History Last Taken 05/28/21] insulin glargine U-300 conc [Toujeo SoloStar U-300 Insulin] 40 unit SUBCUT QHS 02/17/21 [History Last Taken 05/28/21] insulin lispro 35 unit SUBCUT DINNER 02/17/21 [History Last Taken 05/28/21] insulin lispro [Humalog U-100 Insulin] 30 unit SUBCUT BREAKFAST 02/17/21 [History Last Taken 05/28/21] acetaminophen 1,000 mg PO Q6H PRN PRN #0 tab 05/14/21 [Rx Last Taken Unknown] oxycodone 5 mg PO Q4H PRN PRN 7 Days #42 tab 05/14/21 [Rx Last Taken Unknown] insulin lispro 35 unit SUBCUT LUNCH 05/30/21 [History Last Taken 05/28/21] rivaroxaban [Xarelto] 15 mg PO DAILY 05/30/21 [History Last Taken 05/28/21] sulfamethoxazole-trimethoprim [Bactrim DS] 1 tab PO BID #20 tab 09/02/21 [Rx Last Taken Unknown] Allergy/AdvReac Type Severity Reaction Status Date / Time hydralazine HCl Allergy Other Verified 02/17/21 09:07 [From Apresoline] ondansetron [From Zofran] AdvReac Nausea Verified 06/02/21 04:40 Family History Other Diabetes Heart disease Surgical History History of cardiac catheterization History of cardiac radiofrequency ablation History of hip replacement History of quadruple bypass History of total left hip replacement Hx of cholecystectomy Hx of colonoscopy Hx of tubal ligation Social History household members: none housing: house number of children: 3 Smoking Status: Never smoker ROS ROS ED Constitutional Constitutional ED: Denies chills or fever(s) Eyes Eyes: Denies change in vision ENT ENT ED: Denies sore throat Cardiovascular Cardiovascular: Denies chest pain Respiratory/Chest Respiratory/Chest: Denies cough or dyspnea Gastrointestinal Gastrointestinal: Reports abdominal pain, nausea and vomiting; Denies diarrhea Genitourinary Genitourinary ED: Denies dysuria or urinary frequency Musculoskeletal Musculoskeletal: Reports back pain Integumentary Denies rash Neurologic Neurologic: Denies headache(s) Allergic/Immunologic Allergic/Immunologic ED: Denies urticaria EXAM Physical Exam Const Vital Signs: 09/02/21 17:52 09/02/21 20:48 09/02/21 20:50 Temperature 98.9 F 98.7 F Temperature Source Temporal Temporal Pulse Rate 105 H 89 Respiratory Rate 24 H 15 13 Blood Pressure 117/81 H 115/49 L Blood Pressure Mean 93 71 Pulse Ox 100 95 Oxygen Delivery Method Room Air Room Air Positive well nourished and well developed General Appearance ED: well developed HEENT Reports normocephalic and head/scalp atraumatic Eyes PERRL and EOMs intact bilaterally Neck supple Chest Wall inspection of chest normal and palpation of chest normal Resp normal respiratory effort and clear to auscultation bilaterally Cardio regular rate and regular rhythm GI Palpation: soft and tender other (Mild diffuse tenderness to palpation. No guarding or rebound.) Extremity Extremity Narrative: Chronic venous skin changes bilateral lower extremities. General Extremety ED: Yes edema General Extremity: edema Neuro oriented x3 Sensorium / Orientation: alert Psych mental status grossly normal Skin no rashes or lesions noted MDM MDM MDM Narrative Medical decision making narrative: Lab work, urinalysis, CT flank obtained. Patient given a dose of fentanyl along with Reglan to help control pain and nausea. Lab Data Attestation: I reviewed the patient's lab results. Labs: Laboratory Results - last 24 hr 09/02/21 09/02/21 09/02/21 18:15 18:15 18:15 WBC 12.8 H RBC 3.92 L Hgb 10.2 L Hct 34.0 L MCV 86.7 MCH 26.0 L MCHC 30.0 L RDW Std Deviation 52.7 H RDW Coeff of Kevyn 16.4 H Plt Count 352 MPV 10.1 Immature Gran % (Auto) 0.500 Neut % (Auto) 84.1 H Lymph % (Auto) 5.9 L Nelson % (Auto) 6.3 Eos % (Auto) 2.5 Baso % (Auto) 0.7 Absolute Neuts (auto) 10.8 H Absolute Lymphs (auto) 0.76 L Nucleated RBC % 0 Sodium 138 Potassium 3.8 Chloride 105 Carbon Dioxide 25.0 Anion Gap 8 BUN 19 H Creatinine 1.01 Estim Creat Clear Calc 52.28 Est GFR (MDRD) Af Amer 70 Est GFR (MDRD) Non-Af 57 L BUN/Creatinine Ratio 18.8 Glucose 116 H Calcium 9.4 Total Bilirubin 1.50 H Direct Bilirubin 0.63 H AST 25 ALT 13 Alkaline Phosphatase 89 Total Protein 8.0 Albumin 3.2 Globulin 4.8 H Lipase 84 Urine Color Urine Clarity Urine pH Ur Specific Whately Urine Protein Urine Glucose (UA) Urine Ketones Urine Occult Blood Urine Nitrite Urine Bilirubin Urine Urobilinogen Ur Leukocyte Esterase Urine RBC Urine WBC Ur Squamous Epith Cells Urine Bacteria Urine Mucus 09/02/21 21:20 WBC RBC Hgb Hct MCV MCH MCHC RDW Std Deviation RDW Coeff of Kevyn Plt Count MPV Immature Gran % (Auto) Neut % (Auto) Lymph % (Auto) Nelson % (Auto) Eos % (Auto) Baso % (Auto) Absolute Neuts (auto) Absolute Lymphs (auto) Nucleated RBC % Sodium Potassium Chloride Carbon Dioxide Anion Gap BUN Creatinine Estim Creat Clear Calc Est GFR (MDRD) Af Amer Est GFR (MDRD) Non-Af BUN/Creatinine Ratio Glucose Calcium Total Bilirubin Direct Bilirubin AST ALT Alkaline Phosphatase Total Protein Albumin Globulin Lipase Urine Color Yellow Urine Clarity Clear Urine pH 8.0 Ur Specific Whately 1.010 Urine Protein 15 H Urine Glucose (UA) Normal Urine Ketones Negative Urine Occult Blood 10 H Urine Nitrite Positive H Urine Bilirubin Negative Urine Urobilinogen Normal Ur Leukocyte Esterase 500 H Urine RBC 0-5 SEEN Urine WBC 10-25 SEEN Ur Squamous Epith Cells 0 SEEN Urine Bacteria 1+ Urine Mucus 0 SEEN Radiography Diagnostic Testing: Clinical Impression(s) from Imaging Studies Chest X-Ray 09/02/21 19:03 IMPRESSION: 1. Questionable interstitial findings, inconclusive. Consider CT for confirmation due to possibility of viral pneumonia. 2. Moderate cardiomegaly, possibly mild pulmonary edema. Electronically Signed: Shabnam Peterson MD at 20:07 EST Tel , Service support , Abdomen/Pelvis CT 09/02/21 20:55 IMPRESSION: 1. No visualized acute or significant process of the abdomen and pelvis. 2. Small loculated pleural effusion of the left lower lobe. Electronically Signed: Michel Qureshi MD at 22:28 EST , Service support , Treatment and Re-Evaluation Comments:: Urinalysis does show infection with 10-25 white cells and 1+ bacteria. Nitrites are positive. Both blood and urine cultures have been sent. Lab work reveals mild white count elevation at 12.8. Patient is given dose of Rocephin here and we discharged with a 10-day course of Bactrim to cover pyelonephritis. She was advised that if her blood cultures return positive she will receive a phone call and asked to return to the emergency room. Discharge Plan Triage Chief Complaint: Nausea/Vomiting ED Provider: Whitney Ritchie Dx/Rx/DC Orders Clinical Impression: Pyelonephritis Instructions: ED Pyelonephritis, Female (Adult) Prescriptions: New sulfamethoxazole-trimethoprim [Bactrim DS] 800-160 mg tablet 1 tab PO BID Qty: 20 RF: 0 No Action atorvastatin 40 MG tablet 40 mg PO QHS RF: 0 sotalol [Betapace] 120 MG tablet 80 mg PO BID RF: 0 aspirin 81 MG tablet,chewable 81 mg PO DAILY@0800 RF: 0 fenofibric acid (choline) [Trilipix] 135 MG capsule,delayed release(DR/EC) 135 mg PO DAILY RF: 0 levothyroxine 175 MCG tablet 200 mcg PO DAILY RF: 0 bumetanide 0.5 mg Tablet 0.5 mg PO DAILY RF: 0 insulin lispro [Humalog U-100 Insulin] 100 unit/mL Solution 30 unit SUBCUT BREAKFAST RF: 0 insulin lispro 100 unit/mL Solution 35 unit SUBCUT DINNER RF: 0 Vitamin C 1,000 mg Capsule, Extended Release 1 cap PO DAILY RF: 0 Toujeo SoloStar U-300 Insulin 300 unit/mL (1.5 mL) Insulin Pen 40 unit SUBCUT QHS RF: 0 oxycodone 5 mg Tablet 5 mg PO Q4H PRN PRN (Reason: Pain Score 6-10) 7 Days Qty: 42 RF: 0 acetaminophen 500 mg Tablet 1,000 mg PO Q6H PRN PRN (Reason: Pain Score 1-5) Qty: 0 RF: 0 insulin lispro 100 unit/mL Insulin Pen 35 unit SUBCUT LUNCH RF: 0 Xarelto 15 mg tablet 15 mg PO DAILY RF: 0 Primary Care Provider: Maggi Chicas Referrals: Maggi Chicas, [Primary Care Provider] - 1 Week Disposition Disposition: Home, Self Care
[2021-09-02 21:33] LABS: Mucous, Urine 0 SEEN /hpf (<or=2+); Squamous Epithelial Cells - UA 0 SEEN /hpf (5-10)
[2021-09-02] MEDS: fentaNYL 100 MCG/2 ML Ampul 25 MCG IV (21:33)
[2021-09-02] MEDS: Metoclopramide 10 MG/2 ML Vial 5 MG IV (21:33)
[2021-09-02 21:37] LABS: Color, Urine Yellow (Yellow); Glucose, Dipstick Normal (Normal); Ketone-Dipstick Negative (Negative); Leukocyte Esterase-Dipstick 500 /ul (Negative); Nitrite-Dipstick Positive (Negative); Occult Blood-Urine 10 /ul (Negative); Protein-Dipstick 15 mg/dl (Negative); Urine Bilirubin Dipstick Negative (Negative); Urine Clarity Clear (Clear); Urine Urobilinogen Normal (Normal)
[2021-09-02 21:44] LABS: Bacteria 1+ /hpf (None Seen)
[2021-09-02 21:45] LABS: Red Blood Cells-Urine 0-5 SEEN /hpf (0-5); White Blood Cells 10-25 SEEN /hpf (0-5)
[2021-09-02 21:56] LABS: AST(SGOT) 25 U/L (15-37); Alanine Aminotransfer ALT/SGPT 13 U/L (13-56); Albumin, Serum 3.2 g/dL (3.2-5.0); Alkaline Phosphatase 89 U/L (45-117); Bilirubin, Direct 0.63 mg/dL (0.00-0.30); Globulin 4.8 g/dL (2.2-4.2); Lipase 84 U/L (73-393)
[2021-09-02] MEDS: Ceftriaxone 1 GM/50 ML BAG IV (22:44)
[2021-09-02 22:46] VITALS: BP 114/56; PULSE 88; RESP 16; O2SAT 98
--- NOTE | 2021-09-05 19:18 | ED.RN ---
CALLED AT 1000 AND AGAIN AT 1230 TO CHECK ON PT STATUS DISCUSSED WITH DR GRACE. LEFT A MESSAGE BUT HAVE YET TO HEAR BACK FROM PT OR FAMILY
== END 2021-09-02 23:18 | disposition home or self-care (01) ==
PROVIDERS: Emergency Provider Emergency Medicine
DX: N12 Tubulo-interstitial nephritis, not specified as acute or chronic (principal); J90 Pleural effusion, not elsewhere classified; I48.91 Unspecified atrial fibrillation; I10 Essential (primary) hypertension; E11.36 Type 2 diabetes mellitus with diabetic cataract; F32.A Depression, unspecified; F41.9 Anxiety disorder, unspecified; Z79.4 Long term (current) use of insulin; Z87.440 Personal history of urinary (tract) infections; Z79.01 Long term (current) use of anticoagulants; Z79.82 Long term (current) use of aspirin
CPT/HCPCS: 71045; 74176; 80048; 80076; 81001; 83690; 85025; 87040; 87077; 87086; 87088; 87186; 87426; 99282; A4216

== ENCOUNTER 2021-11-12 19:44 | Emergency (ER) | payer MEDICARE, SELFPAY ==
[2021-11-12 19:45] VITALS: BP 188/90; PULSE 100; RESP 18; TEMP 36.4; O2SAT 98; BMI 43.7
--- NOTE | 2021-11-12 19:50 | EKG12_ITS ---
Test Reason : CP Blood Pressure : / mmHG Vent. Rate : 094 BPM Atrial Rate : 100 BPM P-R Int : 000 ms QRS Dur : 088 ms QT Int : 392 ms P-R-T Axes : 000 -07 106 degrees QTc Int : 490 ms Atrial fibrillation Anterior infarct , age undetermined Abnormal ECG Confirmed by LORI MARINELLI, OLESYA ([id number]), acquisition editor ANITA LOYD ([id number]) on 11/13/2021 10:40:57 A M Referred By: CELSO Confirmed By:SABA SANDOVAL MD
[2021-11-12 20:01] LABS: Absolute Lymphocyte Count 0.68 X10^3/uL (0.83-4.51); Absolute Neutrophil Count 2.7 X10^3/uL (2.0-7.7); Basophil# 0.04 X10^3/uL; Eosinophil# 0.08 X10^3/uL; Eosinophils% 2.1 % (0-5); Hematocrit 32.7 % (37-47); Hemoglobin 10.4 g/dL (12.0-15.0); Lymphocyte # 0.68 X10^3/ul (0.83-4.51); Lymphocyte % 17.8 % (19-41); Mean Corp Hgb Conc 31.8 g/dL (32-36); Mean Corpuscular Hgb 27.4 pg (27.0-32.0); Mean Corpuscular Volume 86.3 fL (81-99); Mean Platelet Vol. 10.4 fl (6.2-12.0); Monocyte# 0.35 X10^3/uL; Monocyte% 9.2 % (0-10); NRBC Flagged by Analyzer 0 % (0-5); Neutrophil # 2.65 X10^3/uL (2.7-7.7); Neutrophil % 69.4 % (47-70); Platelet Count 262 K/mm3 (150-450); RBC Distribution Width CV 16.4 % (11.6-14.6); RBC Distribution Width SD 52.1 fl (35.1-43.9); Red Blood Count 3.79 M/mm3 (4.2-5.4); White Blood Count 3.8 K/mm3 (4.4-11.0)
--- NOTE | 2021-11-12 20:01 | RAD_ITS ---
HISTORY: CHEST PAIN EXAMINATION/TECHNIQUE: XR Chest 1 View: 1 view COMPARISON: 09/02/21 FINDINGS: LINES/DEVICES: None. LUNGS: No consolidation, edema or effusion. No pneumothorax. MEDIASTINUM AND CARDIOVASCULAR STRUCTURES: Stable cardiomegaly with median sternotomy wires. Central airways and mediastinal contour are unremarkable. BONES AND SOFT TISSUES: No acute bony abnormalities. RAD/Chest 1 View (Portable) IMPRESSION: Cardiomegaly without radiographic evidence of acute cardiopulmonary disease. at 2021 Reported and signed by: José Allred MD Electronically Signed: José Allred MD at 20:21 EST ,
[2021-11-12 20:10] LABS: International Normalized Ratio 1.7; Prothrombin Time (Protime)PT. 19.2 SECONDS (11.7-14.9)
[2021-11-12 20:21] LABS: Anion Gap 7 (5-15); BUN 24 mg/dL (7-18); BUN/Creat Ratio 19.7 RATIO (10-20); Calcium,Total 8.9 mg/dL (8.5-10.1); Chloride 106 mmol/L (98-107); Creatinine, Serum 1.22 mg/dL (0.55-1.02); EST Glomerular Filtration Rate 46 mL/min (>60); Est Glom Filt Rate - Afr Amer 56 mL/min (>60); Estimated Creatinine Clearance 42.67 ml/min; Glucose 269 mg/dL (74-106); Potassium 4.2 mmol/L (3.5-5.1); Sodium Level 134 mmol/L (136-145); Troponin-I HS 13 pg/mL (3.0-54.0)
[2021-11-12 20:57] VITALS: BP 158/82; PULSE 97
--- NOTE | 2021-11-12 21:05 | EDS_ITS ---
HPI History of Present Illness Chief Complaint: Chest Pain Narrative Narrative: 71-year-old female with history of atrial fibrillation presenting with rectal sternal chest pain. She states is a dull ache. Its associated with palpitations and she feels like she is going in and out of atrial fibrillation. Patient relates that she was recently admitted and taken off of her sotalol and currently is taking amiodarone 200 mg p.o. daily. 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 Her EKG appeared to be normal. Patient is anticoagulated on Xarelto for her atrial fibrillation. She denies shortness of breath, cough, fever, chills. [facility] Medical History Abrasion Acute UTI Anxiety Arthritis Cardiology follow-up encounter Cataract (lens) fragments in eye following cataract surgery, left eye Cataract (lens) fragments in eye following cataract surgery, right eye CPAP (continuous positive airway pressure) dependence Cystitis Depression Diabetes mellitus, type 2 Dietary restriction Diverticulitis DVT (deep venous thrombosis) Generalized weakness History of atrial fibrillation History of edema History of pain when walking History of stress incontinence History of stress test Hx of echocardiogram Hx of necrotizing fasciitis Hypertension Insulin dependent diabetes mellitus Nausea & vomiting Non-smoker Pneumonia Restless legs Shortness of breath on exertion Thyroid disease Walker as ambulation aid Wears dentures Home Medications aspirin 81 mg PO DAILY@0800 09/07/14 [History Last Taken 05/28/21] atorvastatin 40 mg PO QHS 09/07/14 [History Last Taken 05/28/21] fenofibric acid (choline) [Trilipix] 135 mg PO DAILY 09/07/14 [History Last Taken 05/28/21] sotalol [Betapace] 80 mg PO BID 09/07/14 [History Last Taken 05/28/21] levothyroxine 200 mcg PO DAILY 04/12/20 [History Last Taken 05/28/21] ascorbic acid (vitamin C) [Vitamin C] 1 cap PO DAILY 02/17/21 [History Last Taken 05/28/21] bumetanide 0.5 mg PO DAILY 02/17/21 [History Last Taken 05/28/21] insulin glargine U-300 conc [Toujordano SoloStar U-300 Insulin] 40 unit SUBCUT QHS 02/17/21 [History Last Taken 05/28/21] insulin lispro 35 unit SUBCUT DINNER 02/17/21 [History Last Taken 05/28/21] insulin lispro [Humalog U-100 Insulin] 30 unit SUBCUT BREAKFAST 02/17/21 [Histo ry Last Taken 05/28/21] acetaminophen 1,000 mg PO Q6H PRN PRN #0 tab 05/14/21 [Rx Last Taken Unknown] oxycodone 5 mg PO Q4H PRN PRN 7 Days #42 tab 05/14/21 [Rx Last Taken Unknown] insulin lispro 35 unit SUBCUT LUNCH 05/30/21 [History Last Taken 05/28/21] rivaroxaban [Xarelto] 20 mg PO DAILY 05/30/21 [History Last Taken 05/28/21] amiodarone 200 mg PO DAILY 11/12/21 [History Last Taken Unknown] doxycycline monohydrate 100 mg PO BID 11/12/21 [History Last Taken Unknown] Allergy/AdvReac Type Severity Reaction Status Date / Time hydralazine HCl Allergy Other Verified 11/12/21 19:47 [From Apresoline] ondansetron [From Zofran] AdvReac Nausea Verified 11/12/21 19:47 Family History Other Diabetes Heart disease Surgical History History of cardiac catheterization History of cardiac radiofrequency ablation History of hip replacement History of quadruple bypass History of total left hip replacement Hx of cholecystectomy Hx of colonoscopy Hx of tubal ligation Social History household members: none housing: house number of children: 3 Smoking Status: Never smoker ROS ROS ED Constitutional Constitutional ED: Denies chills or fever(s) Eyes Eyes: Denies blurry vision or change in vision ENT ENT ED: Denies rhinorrhea Cardiovascular Cardiovascular: Reports as per HPI and palpitations Respiratory/Chest Respiratory/Chest: Denies dyspnea Gastrointestinal Gastrointestinal: Denies abdominal pain, nausea or vomiting Genitourinary Genitourinary ED: Denies dysuria or hematuria Musculoskeletal Musculoskeletal: Denies arthralgias or myalgias Integumentary Denies abscess or rash Neurologic Neurologic: Denies headache(s) or weakness EXAM Physical Exam Const Vital Signs: 11/12/21 19:45 11/12/21 20:55 11/12/21 20:57 Temperature 97.6 F L Temperature Source Temporal Pulse Rate 100 97 Respiratory Rate 18 Respiratory Effort Normal Non-Labored Blood Pressure 188/90 H 158/82 H Blood Pressure Mean 122 107 Pulse Ox 98 Oxygen Delivery Method Room Air 11/12/21 21:08 Temperature Temperature Source Pulse Rate 93 Respiratory Rate 14 Respiratory Effort Blood Pressure 167/92 H Blood Pressure Mean 117 Pulse Ox 100 Oxygen Delivery Method Room Air Positive obese General Appearance ED: NAD; Negative for pallor Nutritional Appearance: obese HEENT Reports moist mucous membranes normocephalic Eyes PERRL and EOMs intact bilaterally General Eye ED: Negative for pale conjunctiva or scleral icterus Chest Wall inspection of chest normal and palpation of chest normal Resp normal respiratory effort Effort and Inspection: respiratory distress Cardio regular rhythm Rate: tachycardic GI normal to inspection, nondistended, normoactive bowel sounds Neuro oriented x3 and CN's II-XII intact bilaterally Sensorium / Orientation: awake and alert Psych mental status grossly normal Skin General Skin Exam: Negative for jaundice or pallor Heart Score History: Slightly/Non-Suspicious ECG: Normal Age: >/= 65 years Risk Factors: >/= 3 Risk Factors or History of CAD Score: 4 MDM MDM MDM Narrative Medical decision making narrative: Patient presenting with chest pain. Her EKG performed on arrival was atrial fibrillation with a ventricular rate of 94 bpm without sign of ischemic change. Chest x-ray on my interpretation shows no acute cardiopulmonary process and the radiologist does agree. CBC shows that her hemoglobin is at baseline at 10.4. Patient is also noted to be leukopenic and lymphopenic. Creatinine slightly elevated 1.22. Electrolytes are unremarkable. High-sensitivity troponin initially is 13. Delta troponin is obtained and is also 13. I do believe this rules out ACS. Patient is anticoagulated and I have low suspicion for PE. Vital signs are stable and she is afebrile. She is not requiring any oxygen. Her heart rate does seem to fluctuate between the low 80s and upper 90s. She states this has been going on since she was recently admitted. 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 Patient was amenable to this plan. She can return precautions. Impression: 1 chest pain 2. Palpitations Lab Data Attestation: I reviewed the patient's lab results. Labs: Laboratory Results - last 24 hr 11/12/21 11/12/21 11/12/21 19:55 19:55 19:55 WBC 3.8 L RBC 3.79 L Hgb 10.4 L Hct 32.7 L MCV 86.3 MCH 27.4 MCHC 31.8 L RDW Std Deviation 52.1 H RDW Coeff of Kevyn 16.4 H Plt Count 262 MPV 10.4 Immature Gran % (Auto) 0.500 Neut % (Auto) 69.4 Lymph % (Auto) 17.8 L [place] % (Auto) 9.2 Eos % (Auto) 2.1 Baso % (Auto) 1.0 Absolute Neuts (auto) 2.7 Absolute Lymphs (auto) 0.68 L Nucleated RBC % 0 PT 19.2 H INR 1.7 Sodium 134 L Potassium 4.2 Chloride 106 Carbon Dioxide 21.0 Anion Gap 7 BUN 24 H Creatinine 1.22 H Estim Creat Clear Calc 42.67 Est GFR (MDRD) Af Amer 56 L Est GFR (MDRD) Non-Af 46 L BUN/Creatinine Ratio 19.7 Glucose 269 H Calcium 8.9 Troponin I High Sens 13 11/12/21 21:45 WBC RBC Hgb Hct MCV MCH MCHC RDW Std Deviation RDW Coeff of Kevyn Plt Count MPV Immature Gran % (Auto) Neut % (Auto) Lymph % (Auto) [place] % (Auto) Eos % (Auto) Baso % (Auto) Absolute Neuts (auto) Absolute Lymphs (auto) Nucleated RBC % PT INR Sodium Potassium Chloride Carbon Dioxide Anion Gap BUN Creatinine Estim Creat Clear Calc Est GFR (MDRD) Af Amer Est GFR (MDRD) Non-Af BUN/Creatinine Ratio Glucose Calcium Troponin I High Sens 13 Radiography Diagnostic Testing: Clinical Impression(s) from Imaging Studies Chest X-Ray 11/12/21 20:01 IMPRESSION: Cardiomegaly without radiographic evidence of acute cardiopulmonary disease. at 2021 Reported and signed by: José Allred MD Electronically Signed: José Allred MD at 20:21 EST Reading Location ID and State: [facility] / [place] Tel , Service support , Discharge Plan Triage Chief Complaint: Chest Pain ED Provider: Vernon Saha Dx/Rx/DC Orders Instructions: ED AFIB, ED Chest Pain, Noncardiac Prescriptions: No Action atorvastatin 40 MG tablet 40 mg PO QHS RF: 0 sotalol [Betapace] 120 MG tablet 80 mg PO BID RF: 0 aspirin 81 MG tablet,chewable 81 mg PO DAILY@0800 RF: 0 fenofibric acid (choline) [Trilipix] 135 MG capsule,delayed release(DR/EC) 135 mg PO DAILY RF: 0 levothyroxine 175 MCG tablet 200 mcg PO DAILY RF: 0 bumetanide 0.5 mg Tablet 0.5 mg PO DAILY RF: 0 insulin lispro [Humalog U-100 Insulin] 100 unit/mL Solution 30 unit SUBCUT BREAKFAST RF: 0 insulin lispro 100 unit/mL Solution 35 unit SUBCUT DINNER RF: 0 Vitamin C 1,000 mg Capsule, Extended Release 1 cap PO DAILY RF: 0 Toujeo SoloStar U-300 Insulin 300 unit/mL (1.5 mL) Insulin Pen 40 unit SUBCUT QHS RF: 0 oxycodone 5 mg Tablet 5 mg PO Q4H PRN PRN (Reason: Pain Score 6-10) 7 Days Qty: 42 RF: 0 acetaminophen 500 mg Tablet 1,000 mg PO Q6H PRN PRN (Reason: Pain Score 1-5) Qty: 0 RF: 0 insulin lispro 100 unit/mL Insulin Pen 35 unit SUBCUT LUNCH RF: 0 Xarelto 15 mg tablet 20 mg PO DAILY RF: 0 amiodarone 200 mg tablet 200 mg PO DAILY RF: 0 doxycycline monohydrate 100 mg tablet 100 mg PO BID RF: 0 Primary Care Provider: Maggi Chicas Referrals: Maggi Chicas, [Primary Care Provider] - Disposition Disposition: Home, Self Care
[2021-11-12 21:08] VITALS: BP 167/92; PULSE 93; RESP 14; O2SAT 100
[2021-11-12 22:19] LABS: Troponin-I HS 13 pg/mL (3.0-54.0)
== END 2021-11-12 22:46 | disposition home or self-care (01) ==
PROVIDERS: Emergency Provider Student in an Organized Health Care Education/Training Program; Visit Provider Student in an Organized Health Care Education/Training Program
DX: R00.2 Palpitations (principal); I48.91 Unspecified atrial fibrillation; E11.9 Type 2 diabetes mellitus without complications; Z79.4 Long term (current) use of insulin; I10 Essential (primary) hypertension; R07.9 Chest pain, unspecified; Z99.89 Dependence on other enabling machines and devices; Z79.01 Long term (current) use of anticoagulants
CPT/HCPCS: 71045; 80048; 84484; 85025; 85610; 87426; 93005; 99282; A4216

== ENCOUNTER 2023-04-06 15:03 | Inpatient (IN) | payer MEDICARE, SELFPAY ==
[2023-04-06 15:16] VITALS: BP 155/68; PULSE 92; RESP 16; TEMP 36.1; O2SAT 95
--- NOTE | 2023-04-06 15:25 | RAD_ITS ---
STUDY: X-RAY - RIGHT KNEE REASON FOR EXAM: Female, 72 years old. Pain following a fall. TECHNIQUE: 4 view(s) of the knee. COMPARISON: None. FINDINGS: Normal visualized distal femur. Normal visualized proximal tibia and fibula. Normal proximal tibiofibular articulation. There is mild degenerative arthrosis of the medial femorotibial compartment. There is severe degenerative arthrosis of the lateral femorotibial compartment with severe joint space narrowing. There is moderate degenerative arthrosis of the patellofemoral articulation. Diffuse soft tissue swelling. RAD/Knee 4 or More Views IMPRESSION: Degenerative arthrosis. Diffuse soft tissue swelling. More pronounced overlying the proximal tibia. Electronically Signed: Ian Buchanan MD at 15:44 EDT ,
[2023-04-06] MEDS: Morphine 4 MG/ML Syringe IM (16:20)
[2023-04-06] MEDS: Morphine 4 MG/ML Syringe IV ×2 (17:37→22:55)
[2023-04-06 17:55] LABS: Absolute Lymphocyte Count 0.62 X10^3/uL (0.83-4.51); Absolute Neutrophil Count 4.7 X10^3/uL (2.0-7.7); Basophil# 0.05 X10^3/uL; Basophil% 0.8 % (0-1); Eosinophil# 0.08 X10^3/uL; Eosinophils% 1.3 % (0-5); Hematocrit 25.2 % (37-47); Hemoglobin 8.2 g/dL (12.0-15.0); Lymphocyte # 0.62 X10^3/ul (0.83-4.51); Lymphocyte % 10.4 % (19-41); Mean Corp Hgb Conc 32.5 g/dL (32-36); Mean Corpuscular Hgb 30.1 pg (27.0-32.0); Mean Corpuscular Volume 92.6 fL (81-99); Mean Platelet Vol. 11.6 fl (6.2-12.0); Monocyte# 0.49 X10^3/uL; Monocyte% 8.2 % (0-10); NRBC Flagged by Analyzer 0 % (0-5); Neutrophil # 4.69 X10^3/uL (2.7-7.7); Platelet Count 223 K/mm3 (150-450); RBC Distribution Width CV 15.3 % (11.6-14.6); Red Blood Count 2.72 M/mm3 (4.2-5.4)
[2023-04-06 17:59] LABS: International Normalized Ratio 1.4; Prothrombin Time (Protime)PT. 17.6 SECONDS (11.7-14.9)
[2023-04-06 18:08] LABS: Anion Gap 7 (5-15); BUN 42 mg/dL (7-18); BUN/Creat Ratio 22.6 RATIO (10-20); Calcium,Total 8.6 mg/dL (8.5-10.1); Chloride 107 mmol/L (98-107); Creatinine, Serum 1.86 mg/dL (0.55-1.02); EST Glomerular Filtration Rate 28 mL/min (>60); Est Glom Filt Rate - Afr Amer 34 mL/min (>60); Glucose 353 mg/dL (74-106); Potassium 4.1 mmol/L (3.5-5.1); Sodium Level 137 mmol/L (136-145)
[2023-04-06 18:32] VITALS: BMI 47.9
[2023-04-06 18:33] VITALS: BP 149/48; RESP 18
--- NOTE | 2023-04-06 19:08 | CT_ITS ---
EXAM: CT RIGHT LOWER EXTREMITY WITHOUT INTRAVENOUS CONTRAST CLINICAL INDICATION: trauma TECHNIQUE: Helically acquired images were obtained of the right lower extremity without intravenous contrast. 2-D reformats were performed by the technologist. This CT exam was performed using one or more of the following dose reduction techniques: automated exposure control, adjustment of the mA and/or kV according to patient size, and/or use of iterative reconstruction technique. RADIATION DOSE: CTDIvol = 32.07 mGy, DLP = 3075.26 mGy-cm COMPARISON: Radiographs of the same day FINDINGS: BONES/JOINTS: Diffuse demineralization. No acute fracture. No subluxation. Normal alignment. Preservation of the joint space. No sclerotic or destructive changes. SOFT TISSUES: There is prominent diffuse subcutaneous edema. There are prominent focal subdermal and subcutaneous hematomas along the lateral distal thigh and extending across the anterior upper calf, difficult to measure but as much as 17 cm greatest dimension. There is diffuse atrophy of the thigh muscles. No radiopaque foreign body. CT/Extremity Lower without Contra IMPRESSION: 1. Prominent nonspecific subcutaneous edema. 2. Focal lateral and anterior soft tissue hematomas. 3. No fractures are seen. Electronically Signed: Eugene Navarro MD at 21:58 EDT ,
[2023-04-06] MEDS: 0.9% Normal Saline 1,000 ML 100 ML IV (19:39)
--- NOTE | 2023-04-06 19:51 | ED.VIS.LOWEX ---
HPI History of Present Illness Chief Complaint: Fall Narrative Narrative: Patient is a 72-year-old female with history of atrial fibrillation (on Xarelto), debility, hypothyroidism, hyperlipidemia, diabetes mellitus, hypertension, coronary artery disease and obesity presenting for knee pain after fall. Patient states earlier today she was walking with her walker when the handle broke. This occurred around 10 AM. She landed on her right side. She landed mainly on her right knee and her right shoulder. She states that throughout the day the pain is worse and is now sharp and burning. It is worse with movement. She took 3 Tylenol around noon. The pain worsened so she came to the ER for further evaluation. No other complaints or concerns at this time. States he did not hit her head. Denies any nausea or vomiting. Denies any episodes of lightheadedness or passing out. [facility] Medical History Abrasion Acute UTI Anxiety Arthritis Cardiology follow-up encounter Cataract (lens) fragments in eye following cataract surgery, left eye Cataract (lens) fragments in eye following cataract surgery, right eye CPAP (continuous positive airway pressure) dependence Cystitis Depression Diabetes mellitus, type 2 Dietary restriction Diverticulitis DVT (deep venous thrombosis) Generalized weakness History of atrial fibrillation History of edema History of pain when walking History of stress incontinence History of stress test Hx of echocardiogram Hx of necrotizing fasciitis Hypertension Insulin dependent diabetes mellitus Nausea & vomiting Non-smoker Pneumonia Restless legs Shortness of breath on exertion Thyroid disease Walker as ambulation aid Wears dentures Home Medications atorvastatin 40 mg tablet 40 mg PO QHS Cholesterol 09/07/14 [History Last Taken 05/28/21] fenofibric acid (choline) 135 mg capsule,delayed release (Trilipix) 135 mg PO DAILY Cholesterol 09/07/14 [History Last Taken 05/28/21] levothyroxine 175 mcg tablet 200 mcg PO DAILY Thyroid 04/12/20 [History Last Taken 05/28/21] bumetanide 0.5 mg tablet 0.5 mg PO DAILY BP 02/17/21 [History Last Taken 05/28/21] insulin glargine U-300 conc 300 unit/mL (1.5 mL) subcutaneous pen (Toujeo SoloStar U-300 Insulin) 30 unit subcut QHS Diabetes 02/17/21 [History Last Taken 05/28/21] insulin lispro 100 unit/mL subcutaneous solution 25 unit subcut DINNER Diabetes 02/17/21 [History Last Taken 05/28/21] insulin lispro 100 unit/mL subcutaneous solution (Humalog U-100 Insulin) 12 unit subcut BREAKFAST Diabetes 02/17/21 [History Last Taken 05/28/21] acetaminophen 500 mg tablet 1,000 mg (2 x 500 mg) PO Q6H PRN PRN Pain Score 1-5 #0 tabs 05/14/21 [Rx Last Taken Unknown] insulin lispro 100 unit/mL subcutaneous pen 18 unit subcut LUNCH diabetes 05/30/21 [History Last Taken 05/28/21] rivaroxaban 15 mg tablet (Xarelto) 20 mg PO DAILY blood thinner 05/30/21 [History Last Taken 05/28/21] amiodarone 200 mg tablet 100 mg PO DAILY 11/12/21 [History Last Taken Unknown] doxycycline monohydrate 100 mg tablet 100 mg PO BID 11/12/21 [History Last Taken Unknown] Allergy/AdvReac Type Severity Reaction Status Date / Time hydralazine HCl Allergy Other Verified 11/12/21 19:47 [From Apresoline] ondansetron [From Zofran] AdvReac Nausea Verified 11/12/21 19:47 Family History Other Diabetes Heart disease Surgical History History of cardiac catheterization History of cardiac radiofrequency ablation History of hip replacement History of quadruple bypass History of total left hip replacement Hx of cholecystectomy Hx of colonoscopy Hx of tubal ligation Social History household members: none housing: house number of children: 3 Smoking Status: Never smoker ROS ROS ED Constitutional Constitutional ED: Denies chills or fever(s) Eyes Eyes: Denies change in vision Cardiovascular Cardiovascular: Denies chest pain Respiratory/Chest Respiratory/Chest: Denies cough or dyspnea Gastrointestinal Gastrointestinal: Denies abdominal pain, nausea or vomiting Musculoskeletal Musculoskeletal: Reports other Details: Right knee and shoulder pain Integumentary Reports other Details: Bruising to right knee Neurologic Neurologic: Denies paresthesias or weakness Psychiatric Psychiatric: Denies anxiety Hematologic/Lymphatic Hematologic/Lymphatic: Reports easy bleeding and easy bruising EXAM Physical Exam Const Vital Signs: 04/06/23 15:16 04/06/23 16:05 04/06/23 18:33 Temperature 96.9 F L Temperature Source Temporal Pulse Rate 92 Respiratory Rate 16 18 Respiratory Effort Normal Non-Labored Blood Pressure 155/68 H 149/48 H Blood Pressure Mean 97 81 Pulse Ox 95 Oxygen Delivery Method Room Air Room Air Room Air 04/06/23 20:00 04/06/23 22:57 Temperature Temperature Source Pulse Rate 54 L Respiratory Rate Respiratory Effort Blood Pressure 148/45 H 152/49 H Blood Pressure Mean 79 83 Pulse Ox 100 Oxygen Delivery Method Room Air Positive well nourished and well developed General Appearance ED: well developed HEENT Reports moist mucous membranes normocephalic and atraumatic Eyes PERRL Neck full ROM and supple Chest Wall inspection of chest normal and palpation of chest normal Resp normal respiratory effort and clear to auscultation bilaterally Cardio regular rate, regular rhythm and no murmurs GI non-tender and non-distended GI Narrative: Occult negative on rectal exam, brown stool present Palpation: soft Extremity Extremity Narrative: Bilateral edema present. Chronic venous stasis changes present. Healing ecchymosis over the left knee. Patient has significant area of ecchymosis of the anterior right knee extending from the suprapatellar area down distally to the fibular head. It is tender to palpation. No short arc range of motion pain however she does have pain with direct palpation and range of motion. Not able to perform ligament laxity testing due to her bruising and pain. Neuro oriented x3, moves all extremities and no sensory deficits noted Sensorium / Orientation: alert Motor Exam: general weakness Psych mental status grossly normal Skin Skin Narrative: Ecchymosis to the right anterior knee, no abrasion or open wound appreciated MDM MDM MDM Narrative Medical decision making narrative: Patient is evaluated for right knee pain. Patient has significant ecchymosis to the right knee and pain. She is given IM morphine to help assist her into bed. Patient has limited mobility to begin with. Prior labs from 03/25 obtained from outpatient labs on [facility] show anemia with a hemoglobin of 9.7, white blood cell count of 3.8 and a creatinine of 1.49. At that time patient's A1c was 7.9. Patient's hemoglobin today is 8.2. Patient states she was told that her anemia has been worsening and she is been referred to GI doctor. Actal exam shows brown stool with negative fecal occult study. Patient does not have any significant expanding hematoma while in the emergency room. She has adequate pain control with morphine in the ER. Did discuss the case with orthopedics on-call, Dr. Doty, who does recommend a CT for better evaluation. He states this low in the leg there are no major vessels that likely would require embolization. As patient is been hemodynamically stable I do not think she requires emergent reversal. Does recommend putting on a compressive Mc wrap. Patient is given dose of morphine before this is done to better tolerate it. CT shows diffuse soft tissue swelling with multiple focal hematomas and prominent subcutaneous edema, all consistent with her presentation. She will be admitted for further pain control, monitoring her H&H and orthopedic consult. We will hold her Xarelto. Tentative plan is to drain the hematoma on Wednesday with orthopedics when she has had adequate time to metabolize her Xarelto. Repeat H&H shows a 1 g drop at 7.0. We will continue to monitor. This is discussed with admitting physician, Dr. Conroy. History & Record Review Additional record(s) reviewed:: Prior labs ([facility]) Lab Data Attestation: I reviewed the patient's lab results. Labs: Laboratory Results - last 24 hr 04/06/23 04/06/23 04/06/23 17:40 19:48 22:00 WBC 6.0 RBC 2.72 L Hgb 8.2 L 7.0 L Hct 25.2 L 22.1 L MCV 92.6 MCH 30.1 MCHC 32.5 RDW Std Deviation 52.0 H RDW Coeff of Kevyn 15.3 H Plt Count 223 MPV 11.6 Immature Gran % (Auto) 0.300 Neut % (Auto) 79.0 H Lymph % (Auto) 10.4 L [place] % (Auto) 8.2 Eos % (Auto) 1.3 Baso % (Auto) 0.8 Absolute Neuts (auto) 4.7 Absolute Lymphs (auto) 0.62 L Nucleated RBC % 0 PT 17.6 H INR 1.4 Sodium 137 Potassium 4.1 Chloride 107 Carbon Dioxide 23.0 Anion Gap 7 BUN 42 H Creatinine 1.86 H Est GFR (MDRD) Af Amer 34 L Est GFR (MDRD) Non-Af 28 L BUN/Creatinine Ratio 22.6 H Glucose 353 H Calcium 8.6 Blood Type A POSITIVE Antibody Screen POSITIVE H Antibody Identification ANTI-E Antigen Identification E ANTIGEN - NEGATIVE Crossmatch See Detail Radiography Diagnostic Testing: Clinical Impression(s) from Imaging Studies Knee X-Ray 04/06/23 15:25 IMPRESSION: Degenerative arthrosis. Diffuse soft tissue swelling. More pronounced overlying the proximal tibia. Electronically Signed: Ian Buchanan MD at 15:44 EDT , Lower Extremity CT 04/06/23 19:08 IMPRESSION: 1. Prominent nonspecific subcutaneous edema. 2. Focal lateral and anterior soft tissue hematomas. 3. No fractures are seen. Electronically Signed: Eugene Navarro MD at 21:58 EDT , Right knee x-ray interpreted by emergency medicine physician?soft tissue swelling, no bony abnormality appreciated Management Discussion w/another healthcare provider: Hospitalist and [employer] Professional Discharge Plan Dx/Rx/DC Orders Clinical Impression: Hematoma of right knee region, Traumatic hematoma of right knee, Debility, Atrial fibrillation, Acute pain of right knee, Anticoagulant long-term use, Renal insufficiency Disposition Disposition: Acute Care Hospital [facility] Discharge Date/Time: 04/07/23 00:16
[2023-04-06 20:00] VITALS: BP 148/45
[2023-04-06 22:34] LABS: Hematocrit 22.1 % (37-47)
[2023-04-06 22:57] VITALS: BP 152/49; PULSE 54; O2SAT 100
--- NOTE | 2023-04-06 23:05 | PCM.HP.STD ---
HPI - General General Date of Admission: 04/06/23 Date of Service: 04/06/23 Chief Complaint: Fall, intractable R knee pain. HPI Narrative The patient is a 72 y/o F w/ PMHx: Hypothyroidism, PAF on Xarelto, Morbid Obesity, RLS, HTN, HLD, CKD stage III unclear subtype, Hx VTE, Diabetes mellitus type II, KASANDRA not able to tolerate CPAP, CAD s/p CABG x 4, Hypothyroidism who presents to the [facility] ED on 04/06/23 with history of mechanical fall on a.m. of day of presentation unfortunately while leaning forward had the handle of her walker break off forcing her to fall and landed very hard on her right knee with immediate pain and onset of significant swelling prompting ED evaluation. Patient denied any associated head trauma with her fall. She notes pain is dull aching and sharp stabbing especially with an activity attempt. She is unable to bear any weight. She rates discomfort especially with any touch or activity 10 out of 10 in severity. She noted that the swelling of the right knee continued to progress. Patient reports that her last Xarelto intake was 04/05/2023 evening and that she did not take any on her day of presentation. Work-up in the ED included T97.2, heart rate 53, BP 140/46, respiratory rate 18, 100% room air, CBC with WBC 6.0, hemoglobin initially 8.2 with repeat in the ED during her evaluation throughout the stay 7.0, platelet 223 with lymphopenia with no significant left shift, coags with PT 17.6 otherwise unremarkable, BMP with BUN/creatinine 42/1.86, glucose 353, type and cross initiated with discussion with ED physician, plain film of the right knee with diffuse soft tissue swelling more pronounced overlying the proximal tibia, follow-up right lower extremity CT with a prominent nonspecific subcutaneous edema, focal lateral and anterior soft tissue hematomas with no fractures identified. ED physician did discuss case with orthopedic surgeon Dr. Gallegos who requested snug tight Mc wraps and compression to the right knee, hold on patient's chronic anticoagulant therapy with plan to likely OR for removal/aspiration of hematomas Wednesday. In the ED patient administered morphine 4 mg IV x3. [facility] Medical History (Updated 04/07/23 @ 02:[address] Toshia Conroy MD) Anxiety and depression Arthritis CAD (coronary artery disease) CPAP (continuous positive airway pressure) dependence DVT (deep venous thrombosis) History of stress incontinence Hx of necrotizing fasciitis Hypertension Hypothyroidism Insulin dependent diabetes mellitus PAF (paroxysmal atrial fibrillation) Restless legs Wears dentures Home Medications atorvastatin 40 mg tablet 40 mg PO QHS Cholesterol 09/07/14 [History Last Taken 04/06/23] fenofibric acid (choline) 135 mg capsule,delayed release (Trilipix) 135 mg PO DAILY Cholesterol 09/07/14 [History Last Taken 04/06/23] levothyroxine 175 mcg tablet 200 mcg PO DAILY Thyroid 04/12/20 [History Last Taken 04/06/23] bumetanide 0.5 mg tablet 0.5 mg PO DAILY BP 02/17/21 [History Last Taken 04/06/23] insulin glargine U-300 conc 300 unit/mL (1.5 mL) subcutaneous pen (Toujeo SoloStar U-300 Insulin) 30 unit subcut QHS Diabetes 02/17/21 [History Last Taken 04/06/23] insulin lispro 100 unit/mL subcutaneous solution 25 unit subcut DINNER Diabetes 02/17/21 [History Last Taken 04/06/23] insulin lispro 100 unit/mL subcutaneous solution (Humalog U-100 Insulin) 12 unit subcut BREAKFAST Diabetes 02/17/21 [History Last Taken 04/06/23] acetaminophen 500 mg tablet 1,000 mg (2 x 500 mg) PO Q6H PRN PRN Pain Score 1-5 #0 tabs 05/14/21 [Rx Last Taken 04/06/23] insulin lispro 100 unit/mL subcutaneous pen 18 unit subcut LUNCH diabetes 05/30/21 [History Last Taken 04/06/23] rivaroxaban 15 mg tablet (Xarelto) 20 mg PO DAILY blood thinner 05/30/21 [History Last Taken 04/06/23] amiodarone 200 mg tablet 100 mg PO DAILY hrt 11/12/21 [History Last Taken 04/06/23] doxycycline monohydrate 100 mg tablet 100 mg PO Q24H atb 11/12/21 [History Last Taken 04/06/23] Allergy/AdvReac Type Severity Reaction Status Date / Time hydralazine HCl Allergy Other Verified 04/07/23 00:40 [From Apresoline] ondansetron [From Zofran] AdvReac Nausea Verified 04/07/23 00:40 Family History (Updated 04/07/23 @ 02:[address] Toshia Conroy MD) Mother Diabetes Heart disease Hypertension Father Diabetes Heart disease Hypertension Surgical History History of cardiac catheterization History of cardiac radiofrequency ablation History of hip replacement History of quadruple bypass History of total left hip replacement Hx of CABG Hx of cholecystectomy Hx of colonoscopy Hx of tubal ligation Social History (Updated 04/07/23 @ 02:[address] Toshia Conroy MD) household members: none housing: house number of children: 3 Smoking Status: Never smoker alcohol intake: never substance use type: does not use ROS ROS Narrative Admission Review of Systems: CONSTITUTIONAL: No weight loss, fever, chills, + weakness or fatigue. HEENT: Eyes: No visual loss, blurred vision, double vision or yellow sclerae. Ears, Nose, Throat: No hearing loss, sneezing, congestion, runny nose or sore throat. SKIN: + Notable recent fall with onset ecchymotic changes. CARDIOVASCULAR: No chest pain, chest pressure or chest discomfort, palpitations, edema, orthopnea, syncopal events. RESPIRATORY: + Chronic shortness of breath, No cough or sputum, wheezing, hemoptysis. GASTROINTESTINAL: No anorexia, nausea, vomiting or diarrhea, abdominal pain, melena, BRBPR. GENITOURINARY: No dysuria, frequency, urgency or retention. NEUROLOGICAL: No headache, dizziness, syncope, paralysis, ataxia, numbness or tingling in the extremities, focal weakness, change in bowel or bladder control, seizure. MUSCULOSKELETAL: + muscle, back pain, joint pain or stiffness. HEMATOLOGIC: + anemia, bleeding or bruising. LYMPHATICS: No enlarged nodes. No history of splenectomy. PSYCHIATRIC: + history of depression or anxiety. ENDOCRINOLOGIC: No reports of sweating, cold or heat intolerance. No polyuria or polydipsia. ALLERGIES: No history of asthma, hives, eczema or rhinitis. Vital Signs Vital Signs Vital Signs: 04/06/23 15:16 04/06/23 16:05 04/06/23 18:33 Temperature 96.9 F L Temperature Source Temporal Pulse Rate 92 Respiratory Rate 16 18 Respiratory Effort Normal Non-Labored Blood Pressure 155/68 H 149/48 H Blood Pressure Mean 97 81 Pulse Ox 95 Oxygen Delivery Method Room Air Room Air Room Air 04/06/23 20:00 04/06/23 22:57 Temperature Temperature Source Pulse Rate 54 L Respiratory Rate Respiratory Effort Blood Pressure 148/45 H 152/49 H Blood Pressure Mean 79 83 Pulse Ox 100 Oxygen Delivery Method Room Air Weight Weight: 297 lb Body Mass Index (BMI) 47.9 Physical Exam Narrative Physical Examination: General: Awake, alert, oriented x 3 and cooperative, seated upright in the ED bed, notes ongoing persistent right lower extremity pain, worse with knee, rated 10 out of 10 in severity although does not appear in severe pain. Skin: Normal color, normal turgor, no icterus, no cyanosis except for ecchymotic change right lower extremity although difficult assessment as compression in place currently. HEENT: AT/NC, EOMI, PERRLA, mildly dry MM, no carotid bruits or JVD noted; however thickened neck makes evaluation difficult. Lungs: Distant, possibly secondary to habitus, greater bases, appropriate effort, no rales, ronchi or wheezing. Heart: Currently mildly bradycardic with regular rhythm; no gallop, rub audible. Abdomen: Soft, morbidly obese, NTTP, no obvious distention or HSM however habitus makes evaluation difficult, distant BS. Extremities: No cyanosis, no clubbing, significant right lower extremity swelling with now compression dressing in place extending from above the knee to mid calf region circumferentially, tender to palpation as expected secondary to traumatic hematoma. Neurological: Patient awake, alert, oriented as noted, cognitive function intact; pupils equally reactive to light and accommodation, cranial nerves II-XII grossly normal, moving all 4 extremities except extremely limited right lower extremity given acute presentation as noted, strength accordingly severely globally decreased. Psychiatric: Affect appears fatigued, uncomfortable, no acute evidence of depressive or anxiety feelings but does have underlying history. Results Lab / Micro Data 04/06/23 22:00 04/06/23 17:40 Labs: Laboratory Results - last 24 hr 04/06/23 17:40: WBC 6.0, RBC 2.72 L, Hgb 8.2 L, Hct 25.2 L, MCV 92.6, MCH 30.1, MCHC 32.5, RDW Std Deviation 52.0 H, RDW Coeff of Kevyn 15.3 H, Plt Count 223, MPV 11.6, Immature Gran % (Auto) 0.300, Neut % (Auto) 79.0 H, Lymph % (Auto) 10.4 L, [place] % (Auto) 8.2, Eos % (Auto) 1.3, Baso % (Auto) 0.8, Absolute Neuts (auto) 4.7, Absolute Lymphs (auto) 0.62 L, Nucleated RBC % 0, PT 17.6 H, INR 1.4, Sodium 137, Potassium 4.1, Chloride 107, Carbon Dioxide 23.0, Anion Gap 7, BUN 42 H, Creatinine 1.86 H, Est GFR (MDRD) Af Amer 34 L, Est GFR (MDRD) Non-Af 28 L, BUN/Creatinine Ratio 22.6 H, Glucose 353 H, Calcium 8.6 04/06/23 19:48: Blood Type A POSITIVE, Antibody Screen POSITIVE H, Antibody Identification ANTI-E 04/06/23 22:00: Hgb 7.0 L, Hct 22.1 L Micro: Microbiology 04/06/23 20:15 Stool Stool Occult Blood (MARY) - Final Radiology Impression Knee X-Ray 04/06/23 15:25 IMPRESSION: Degenerative arthrosis. Diffuse soft tissue swelling. More pronounced overlying the proximal tibia. Electronically Signed: Ian Buchanan MD at 15:44 EDT , Lower Extremity CT 04/06/23 19:08 IMPRESSION: 1. Prominent nonspecific subcutaneous edema. 2. Focal lateral and anterior soft tissue hematomas. 3. No fractures are seen. Electronically Signed: Eugene Navarro MD at 21:58 EDT , Assessment & Plan Assessment/Plan (1) Acute pain of right knee: PLAN: Plan The patient is a 72 y/o F w/ PMHx: Hypothyroidism, PAF on Xarelto, Morbid Obesity, RLS, HTN, HLD, CKD stage III unclear subtype, Hx VTE, Diabetes mellitus type II, KASANDRA not able to tolerate CPAP, CAD s/p CABG x 4, Hypothyroidism who presents to the [facility] ED on 04/06/23 with history of mechanical fall on a.m. of day of presentation unfortunately while leaning forward had the handle of her walker break off forcing her to fall and landed very hard on her right knee with immediate pain and onset of significant swelling prompting ED evaluation. #1. Acute mechanical fall with right lower extremity traumatic lateral and anterior soft tissue hematoma on chronic anticoagulant therapy with associated #2: Given stable vital signs will admit to [facility] with continued close monitoring, plan PRBC administration x1 unit with H&H following and repeat trending in a.m., will continue snug Mc wraps and compression to the knee per orthopedic surgery recommendation, will continue orthopedic surgery consultation with planned OR once 48 hours has passed since chronic anticoagulant intake with last noted 04/05/2023 evening, will have as needed oral and IV pain regimen as needed, maintain on fall precautions, nonweightbearing to the right lower extremity with preference of avoidance of any aggressive activity, once appropriate will have PT/OT/case management consultations for discharge planning as patient may need placement given the severity of this presentation and intractability of pain. #2. Acute Blood Loss Anemia secondary to #1 on Chronic normocytic anemia: Admission Hgb 7.0, decreased from initially 8.2; however VS remained appropriate, secondary to as noted RLE hematoma in the setting of fall on anticoagulant therapy, will hold xarelto, plan initiation of PRBC administration with repeat HH following and repeat CBC in AM with further HH trending pending these results. #3. Acute Renal Insufficiency on CKD stage III unclear subtype type: Potentially related with acute presentation #1 as well as nephrotoxic medications, admission BUN/creatinine 42/1.86, baseline 0.8-1.4, will continue to trend. We will temporally hold nephrotoxic medication and judiciously hydration with repeat CMP in AM. #4. PAF: We will continue hold patient home Xarelto regimen, will continue patient home amiodarone. #5. Hypertension: Temporarily holding patient home bumetanide regimen, will have as needed IV hydralazine in the interim and resume once repeat renal function assessment made. #6. Hyperlipidemia: We will temporally hold home fenofibric acid therapy. #7. Hypothyroidism: We will continue patient home levothyroxine regimen. #8. Diabetes mellitus type II: Hold oral home regimen, continue home insulin regimen, ADA diet, accu checks w/ ISS. #9. KASANDRA: Patient from discussion is unable to tolerate CPAP, encouraged her to continue outpatient follow-up for other modalities. #10. CAD: Status post CABG x4, will continue statin, not on beta-brandon or MC inhibitor/ARB possibly secondary to underlying renal disease and bradycardia noted upon presentation, on amiodarone for PAF of note. Holding anticoagulant therapy given acute presentation. #11. Morbid Obesity: Weight loss and lifestyle changes encouraged. #12. DVT prophylaxis: SCD to LLE only. #13. CODE status: Patient does not have healthcare power of energy attorney or living will set up but she notes if she needed to have someone to make decisions for her if she was unable she would want her daughter to be that individual. Discussed CODE status at length including difference between FULL code, DNR-CCA and DNR-CC status. Following discussions about the differences in these status, requested Full Code. Admission Evaluation Time spent evaluating chart, patient history, patient evaluation, care planning and discussion with specialists: 75 minutes. Charges/Coding Visit Charges Inpatient E&M: 10155 Init Hosp L3
[2023-04-07] VITALS (15 sets, daily range): BP systolic 118–165; BP diastolic 43–59; PULSE 52–59; RESP 16–18; TEMP 36.2–36.9; O2SAT 96–100; BMI 44.5
[2023-04-07] MEDS: 0.9% Normal Saline 1,000 ML 100 ML IV ×3 (01:04→22:10)
[2023-04-07] MEDS: Levothyroxine 100 MCG Tablet 200 MCG PO (05:24)
--- NOTE | 2023-04-07 07:26 | PN.HOSP_ITS ---
Reason for Visit Reason for Visit: Diagnoses Pain in right knee (04/06/23) Subjective Subjective no new events Objective Data Objective Data Vital Signs: Vital Signs Temp Pulse Resp BP Pulse Ox O2 Del Method 36.5 C L 56 L 16 142/50 H 100 Room Air 04/07/23 06:27 04/07/23 06:27 04/07/23 06:27 04/07/23 06:43 04/07/23 06:27 04/07/23 06:27 Oxygen Delivery Method Room Air Weight: 132.9 kg Body Mass Index (BMI) 44.5 Intake & Output: Intake and Output for Last 24 Hours 04/05/23 04/06/23 04/07/23 23:59 23:59 23:59 Intake Total 1038.33 / 1038.33 Output Total 230 / 230 Balance 808.33 / 808.33 Lab / Micro Data 04/07/23 10:22 04/07/23 10:22 Labs: Laboratory Results - last 24 hr 04/06/23 17:40: WBC 6.0, RBC 2.72 L, Hgb 8.2 L, Hct 25.2 L, MCV 92.6, MCH 30.1, MCHC 32.5, RDW Std Deviation 52.0 H, RDW Coeff of Kevyn 15.3 H, Plt Count 223, MPV 11.6, Immature Gran % (Auto) 0.300, Neut % (Auto) 79.0 H, Lymph % (Auto) 10.4 L, [place] % (Auto) 8.2, Eos % (Auto) 1.3, Baso % (Auto) 0.8, Absolute Neuts (auto) 4.7, Absolute Lymphs (auto) 0.62 L, Nucleated RBC % 0, PT 17.6 H, INR 1.4, Sodium 137, Potassium 4.1, Chloride 107, Carbon Dioxide 23.0, Anion Gap 7, BUN 42 H, Creatinine 1.86 H, Est GFR (MDRD) Af Amer 34 L, Est GFR (MDRD) Non-Af 28 L , BUN/Creatinine Ratio 22.6 H, Glucose 353 H, Calcium 8.6 04/06/23 19:48: Blood Type A POSITIVE, Antibody Screen POSITIVE H, Antibody Identification ANTI-E, Antigen Identification E ANTIGEN - NEGATIVE, Crossmatch See Detail 04/06/23 22:00: Hgb 7.0 L, Hct 22.1 L Micro: Microbiology 04/06/23 20:15 Stool Stool Occult Blood (MARY) - Final Radiography Diagnostic Testing: Radiology Impression Knee X-Ray 04/06/23 15:25 IMPRESSION: Degenerative arthrosis. Diffuse soft tissue swelling. More pronounced overlying the proximal tibia. Electronically Signed: Ian Buchanan MD at 15:44 EDT , Lower Extremity CT 04/06/23 19:08 IMPRESSION: 1. Prominent nonspecific subcutaneous edema. 2. Focal lateral and anterior soft tissue hematomas. 3. No fractures are seen. Electronically Signed: Eugene Navarro MD at 21:58 EDT , Physical Exam Const alert and no apparent distress HEENT head/scalp atraumatic and moist oral mucous membranes Resp normal respiratory effort, no retractions, no use of accessory muscles and clear to auscultation bilaterally Cardio regular rate, regular rhythm, S1 normal heart sound and S2 normal heart sound GI normal to inspection, nondistended, normoactive bowel sounds, soft to palpation, non-tender and non-distended Extremity Extremity Narrative: right leg wrapped. ecchymosis noted above right knee. Assessment & Plan Assessment/Plan (1) Acute pain of right knee: PLAN: s/p fall CT leg showed no fracture, but hematomas measuring upt to 17cm Ortho contacted and consulted. Tentative plan for OR on the . WBAT Anticipate pt will need SNF upon discharge as she had a very limited performance status prior. (2) Hematoma of right knee region: PLAN: s/p fall while on rivaroxaban rivaroxaban held ortho on consult for potential evacuation on the . (3) Acute blood loss anemia: PLAN: Hg dropped from 8.2 to 7. Monitor Transfused. Follow up Hg 8.7. Monitor. (4) CHRISTIAN (acute kidney injury): PLAN: Presumed Cr 1.22 on 11/12/21, Cr 1.86 on 04/06/23 On IVF Bumetanide held PLAN: Plan Chronic conditions: * PAF: Hold rivaroxaban. Continue amiodarone. * Hypertension: Hold bumetanide * Hyperlipidemia: hold fenofibric acid * Hypothyroidism: continue levothyroxine * Diabetes mellitus type II: Hold oral home regimen, continue home insulin regimen, ADA diet, accu checks w/ ISS. * KASANDRA: Patient from discussion is unable to tolerate CPAP, encouraged her to continue outpatient follow-up for other modalities. * CAD: Status post CABG x4, will continue statin, not on beta-brandon or LAUREL inhibitor/ARB possibly secondary to underlying renal disease and bradycardia noted upon presentation, on amiodarone for PAF of note. Holding anticoagulant therapy given acute presentation. * Morbid Obesity: Weight loss and lifestyle changes encouraged. DVT prophylaxis: SCD to LLE only. CODE status: Full Charges/Coding Visit Charges Inpatient E&M: 08287 Subs Hosp L2
[2023-04-07] MEDS: Amiodarone 200 MG Tablet 100 MG PO (08:40)
[2023-04-07] MEDS: Insulin Lispro 100 UNIT/ML INSULN.PEN SC ×2 (08:40→13:22)
[2023-04-07] MEDS: Insulin Lispro 100 UNIT/ML INSULN.PEN 12 UNIT SC (08:40)
[2023-04-07 08:50] LABS: Bedside Glucose 268 mg/dL (74-106)
[2023-04-07] MEDS: 0.9% Saline Lock 10 ML Syringe IV (09:04)
[2023-04-07] MEDS: Acetaminophen 325 MG Tablet 650 MG PO ×2 (09:04→19:29)
[2023-04-07] MEDS: oxyCODONE 5 MG Tablet PO ×3 (09:04→22:09)
[2023-04-07 10:35] LABS: Absolute Lymphocyte Count 0.56 X10^3/uL (0.83-4.51); Absolute Neutrophil Count 3.5 X10^3/uL (2.0-7.7); Basophil# 0.06 X10^3/uL; Basophil% 1.3 % (0-1); Eosinophil# 0.09 X10^3/uL; Eosinophils% 1.9 % (0-5); Hemoglobin 8.6 g/dL (12.0-15.0); Lymphocyte # 0.56 X10^3/ul (0.83-4.51); Lymphocyte % 11.8 % (19-41); Mean Corp Hgb Conc 31.9 g/dL (32-36); Mean Corpuscular Hgb 30.2 pg (27.0-32.0); Mean Corpuscular Volume 94.7 fL (81-99); Mean Platelet Vol. 11.2 fl (6.2-12.0); Monocyte% 10.6 % (0-10); NRBC Flagged by Analyzer 0 % (0-5); Neutrophil # 3.48 X10^3/uL (2.7-7.7); Neutrophil % 73.6 % (47-70); POSITIVE DIFFERENTIAL YES; Platelet Count 172 K/mm3 (150-450); RBC Distribution Width CV 15.4 % (11.6-14.6); RBC Distribution Width SD 53.2 fl (35.1-43.9); Red Blood Count 2.85 M/mm3 (4.2-5.4); White Blood Count 4.7 K/mm3 (4.4-11.0)
[2023-04-07 10:48] LABS: Differential Indicated SCAN CRITERIA MET
[2023-04-07 11:07] LABS: ALB/GLOB Ratio 0.9 RATIO (0.9-2.4); AST(SGOT) 45 U/L (15-37); Alanine Aminotransfer ALT/SGPT 19 U/L (13-56); Albumin, Serum 2.8 g/dL (3.2-5.0); Alkaline Phosphatase 47 U/L (45-117); Anion Gap 6 (5-15); BUN 32 mg/dL (7-18); BUN/Creat Ratio 20.4 RATIO (10-20); Calcium,Total 8.3 mg/dL (8.5-10.1); Chloride 111 mmol/L (98-107); Creatinine, Serum 1.57 mg/dL (0.55-1.02); EST Glomerular Filtration Rate 34 mL/min (>60); Est Glom Filt Rate - Afr Amer 42 mL/min (>60); Estimated Creatinine Clearance 32.67 ml/min; Globulin 3.2 g/dL (2.2-4.2); Glucose 285 mg/dL (74-106); Sodium Level 140 mmol/L (136-145)
[2023-04-07 12:02] LABS: Bedside Glucose 240 mg/dL (74-106)
--- NOTE | 2023-04-07 13:00 | PCM.CONS.GEN ---
Assessment & Plan Assessment/Plan (1) Hematoma of right knee region: PLAN: Plan Right anterior knee hematoma after ground-level fall. Anticoagulated on Xarelto 20 mg daily last dose 04/05/2023. Multiple medical comorbidities. Chronic lower extremity edema and venous stasis dermatitis. In addition she does have advanced knee arthrosis which is probably contributing to her knee pain with ambulating. CT did not demonstrate any fracture and no intra-articular effusion. Discussed at length with patient and family members present options for management of this hematoma. First option is conservative measure with light compressive bandage and ice elevation early range of motion physical therapy weightbearing as tolerated. We next discussed attempted aspiration at bedside and discussed the risk of potential introduction of superficial skin organisms into hematoma that can result in infection. 3 we discussed open evacuation of hematoma in the operative setting. Due to her multiple medical comorbidities patient preferred not to have an open procedure and wished to perform attempted aspiration. This was attempted at bedside after sterilely prepped with alcohol and Betadine and an 18-gauge needle was used to try to aspirate the hematoma however this was unsuccessful as the blood had already coalesced. We therefore applied ABD over puncture site hole and wrapped with an Mc wrap. At this point family the patient wished to proceed with continued conservative care I would recommend early knee and ankle range of motion physical therapy weightbearing as tolerated patient will likely require rehab or transitional care before being able to be discharged to home secondary to debility she was a community ambulator prior to this so her prognosis is good she is counseled that this hematoma may take many months to resolve. She should have the area checked daily to ensure no skin compromise or signs of infection and we wrapped with a compression bandage. Recommend holding anticoagulants until at least 04/10/2023. If symptoms or conditions change please feel free to reach out to me. HPI Consult Data Date of Consult: 04/07/23 HPI Narrative Reason for Consultation: Right anterior knee hematoma HPI Narrative: MADAN CARRION, is a 72 F who presents after ground-level fall at home on her carpet she tripped using her walker landing onto the right knee immediately had pain she is on 20 mg of Xarelto for atrial fibrillation she has multiple medical comorbidities she is seen with multiple family members at bedside she is very pleasant she seems to be comfortable when not moving or touching her knee. She does complain of pain with weightbearing. BMI 44.5 [facility] Medical History (Updated 04/07/23 @ 07:[address] Yohannes Peña, DO) Anxiety and depression Arthritis CAD (coronary artery disease) CPAP (continuous positive airway pressure) dependence DVT (deep venous thrombosis) History of stress incontinence Hx of necrotizing fasciitis Hypertension Hypothyroidism Insulin dependent diabetes mellitus PAF (paroxysmal atrial fibrillation) Restless legs Wears dentures Home Medications atorvastatin 40 mg tablet 40 mg PO QHS Cholesterol 09/07/14 [History Last Taken 04/06/23] fenofibric acid (choline) 135 mg capsule,delayed release (Trilipix) 135 mg PO DAILY Cholesterol 09/07/14 [History Last Taken 04/06/23] levothyroxine 175 mcg tablet 200 mcg PO DAILY Thyroid 04/12/20 [History Last Taken 04/06/23] bumetanide 0.5 mg tablet 0.5 mg PO DAILY BP 02/17/21 [History Last Taken 04/06/23] insulin glargine U-300 conc 300 unit/mL (1.5 mL) subcutaneous pen (Toujeo SoloStar U-300 Insulin) 30 unit subcut QHS Diabetes 02/17/21 [History Last Taken 04/06/23] insulin lispro 100 unit/mL subcutaneous solution 25 unit subcut DINNER Diabetes 02/17/21 [History Last Taken 04/06/23] insulin lispro 100 unit/mL subcutaneous solution (Humalog U-100 Insulin) 12 unit subcut BREAKFAST Diabetes 02/17/21 [History Last Taken 04/06/23] acetaminophen 500 mg tablet 1,000 mg (2 x 500 mg) PO Q6H PRN PRN Pain Score 1-5 #0 tabs 05/14/21 [Rx Last Taken 04/06/23] insulin lispro 100 unit/mL subcutaneous pen 18 unit subcut LUNCH diabetes 05/30/21 [History Last Taken 04/06/23] rivaroxaban 15 mg tablet (Xarelto) 20 mg PO DAILY blood thinner 05/30/21 [History Last Taken 04/06/23] amiodarone 200 mg tablet 100 mg PO DAILY hrt 11/12/21 [History Last Taken 04/06/23] doxycycline monohydrate 100 mg tablet 100 mg PO Q24H atb 11/12/21 [History Last Taken 04/06/23] Allergy/AdvReac Type Severity Reaction Status Date / Time hydralazine HCl Allergy Other Verified 04/07/23 00:40 [From Apresoline] ondansetron [From Zofran] AdvReac Nausea Verified 04/07/23 00:40 Family History (Updated 04/07/23 @ 02:[address] Toshia Conroy MD) Mother Diabetes Heart disease Hypertension Father Diabetes Heart disease Hypertension Surgical History History of cardiac catheterization History of cardiac radiofrequency ablation History of hip replacement History of quadruple bypass History of total left hip replacement Hx of CABG Hx of cholecystectomy Hx of colonoscopy Hx of tubal ligation Social History (Updated 04/07/23 @ 02:[address] Toshia Conroy MD) household members: none housing: house number of children: 3 Smoking Status: Never smoker alcohol intake: never substance use type: does not use Physical Exam Const alert, oriented x3 and no apparent distress General Appearance: cooperative Orientation / Consciousness: awake, oriented to person, oriented to place and oriented to time Extremity Extremity Narrative: Right knee hematoma there is no sign of skin breakdown or blistering there is no collateral ligament instability. She does have chronic venous stasis dermatitis and chronic lower extremity edema she is morbidly obese. Compartments are soft tender to palpation anterior knee Lab / Micro Data 04/07/23 10:22 04/07/23 10:22 Labs: Laboratory Results - last 24 hr 04/06/23 17:40: WBC 6.0, RBC 2.72 L, Hgb 8.2 L, Hct 25.2 L, MCV 92.6, MCH 30.1, MCHC 32.5, RDW Std Deviation 52.0 H, RDW Coeff of Kevyn 15.3 H, Plt Count 223, MPV 11.6, Immature Gran % (Auto) 0.300, Neut % (Auto) 79.0 H, Lymph % (Auto) 10.4 L, [place] % (Auto) 8.2, Eos % (Auto) 1.3, Baso % (Auto) 0.8, Absolute Neuts (auto) 4.7, Absolute Lymphs (auto) 0.62 L, Nucleated RBC % 0, PT 17.6 H, INR 1.4, Sodium 137, Potassium 4.1, Chloride 107, Carbon Dioxide 23.0, Anion Gap 7, BUN 42 H, Creatinine 1.86 H, Est GFR (MDRD) Af Amer 34 L, Est GFR (MDRD) Non-Af 28 L, BUN/Creatinine Ratio 22.6 H, Glucose 353 H, Calcium 8.6 04/06/23 19:48: Blood Type A POSITIVE, Antibody Screen POSITIVE H, Antibody Identification ANTI-E, Antigen Identification E ANTIGEN - NEGATIVE, Crossmatch See Detail 04/06/23 22:00: Hgb 7.0 L, Hct 22.1 L 04/07/23 08:32: POC Glucose 268 H 04/07/23 10:22: WBC 4.7, RBC 2.85 L, Hgb 8.6 L, Hct 27.0 L, MCV 94.7, MCH 30.2, MCHC 31.9 L, RDW Std Deviation 53.2 H, RDW Coeff of Kevyn 15.4 H, Plt Count 172, MPV 11.2, Immature Gran % (Auto) 0.800, Neut % (Auto) 73.6 H, Lymph % (Auto) 11.8 L, [place] % (Auto) 10.6 H, Eos % (Auto) 1.9, Baso % (Auto) 1.3 H, Absolute Neuts (auto) 3.5, Absolute Lymphs (auto) 0.56 L, Nucleated RBC % 0, Sodium 140, Potassium 4.0, Chloride 111 H, Carbon Dioxide 23.0, Anion Gap 6, BUN 32 H, Creatinine 1.57 H, Estim Creat Clear Calc 32.67, Est GFR (MDRD) Af Amer 42 L, Est GFR (MDRD) Non-Af 34 L, BUN/Creatinine Ratio 20.4 H, Glucose 285 H, Calcium 8.3 L, Total Bilirubin 1.30 H, AST 45 H, ALT 19, Alkaline Phosphatase 47, Total Protein 6.0 L, Albumin 2.8 L, Globulin 3.2, Albumin/Globulin Ratio 0.9 04/07/23 11:44: POC Glucose 240 H Micro: Microbiology 04/06/23 20:15 Stool Stool Occult Blood (MARY) - Final Radiology Impression Knee X-Ray 04/06/23 15:25 IMPRESSION: Degenerative arthrosis. Diffuse soft tissue swelling. More pronounced overlying the proximal tibia. Electronically Signed: Ian Buchanan MD at 15:44 EDT , Lower Extremity CT 04/06/23 19:08 IMPRESSION: 1. Prominent nonspecific subcutaneous edema. 2. Focal lateral and anterior soft tissue hematomas. 3. No fractures are seen. Electronically Signed: Eugene Navarro MD at 21:58 EDT ,
[2023-04-07] MEDS: Insulin Lispro 100 UNIT/ML INSULN.PEN 18 UNIT SC (13:22)
--- NOTE | 2023-04-07 14:38 | CASEMGMT ---
Discharge Planning SNF list created and given to SW. Josie Rubin, Discharge Planning Asst.
--- NOTE | 2023-04-07 14:59 | CASEMGMT ---
Social Work SW to room to meet with patient for initial transition planning/care coordination?assessment.?SW?introduced self and role at [facility].? Pt voices understanding and consents to?assessment?at this time.? Pt sitting in chair in no distress.? Pt is A/O x3 and answers all questions appropriately.?? Care providers, pharmacy, and demographics verified/updated at this time. PCP: Juan Francisco Specialists: Jose/Adair, quality process lead Preferred Pharmacy: [facility] Insurance: [facility] Prescription Benefit:?Yes Living Will/HPOA:?No. Declines additional information. LNOK: Daughters Radha Galan and Elias Armendariz Living Arrangements: Pt lives in a 2 story home with first floor set up and 1 step to enter. Pt was independent with all care needs prior to fall. Pt 's grandson lives with her but does not provide assistance. Transportation:?Pt states drives self and states no transportation concerns at this time.? HHC/SNF: [facility] HHS, TCU and [facility] nursing previously SW spoke with pt regarding discharge plan. Pt does not want to go to SNF but is uncertain if she can care for self at home. A list of SNF providers including quality and resource use data and consistent with the patient?s preferred geographic region, medical needs, and insurance network were provided from the CarePort Guide. SW also spoke with pt regarding home health care option. Pt to consider options and SW will return for decision. Plan: SNF vs. Home Health CHIKI Covarrubias
--- NOTE | 2023-04-07 16:27 | CASEMGMT ---
Social Work SW followed up regarding SNF choices. Pt prefers TCU. SW updated no beds available. Pt second choice [facility]. DC medical billing assistant to send referral. CHIKI Covarrubias
--- NOTE | 2023-04-07 16:35 | CASEMGMT ---
Discharge Planning Patient chose both TCU and [facility] but both are full at this time. Referrals made to SW and OP via [facility]Port. Josie Rubin, Discharge Planning Asst.
[2023-04-07 16:59] LABS: Bedside Glucose 149 mg/dL (74-106)
[2023-04-07] MEDS: Insulin Lispro 100 UNIT/ML INSULN.PEN 25 UNIT SC (17:30)
[2023-04-07 21:39] LABS: Bedside Glucose 80 mg/dL (74-106)
[2023-04-07] MEDS: Atorvastatin Calcium 40 MG Tablet PO (22:09)
[2023-04-08] VITALS (13 sets, daily range): BP systolic 128–159; BP diastolic 48–61; PULSE 55–68; RESP 16–18; TEMP 36.7–37.3; O2SAT 96–100; BMI 44.5
[2023-04-08] MEDS: Acetaminophen 325 MG Tablet 650 MG PO (05:19)
[2023-04-08] MEDS: oxyCODONE 5 MG Tablet PO (05:19)
[2023-04-08] MEDS: Levothyroxine 100 MCG Tablet 200 MCG PO (05:19)
[2023-04-08 06:35] LABS: Bedside Glucose 181 mg/dL (74-106)
--- NOTE | 2023-04-08 08:16 | PN.HOSP_ITS ---
Reason for Visit Reason for Visit: Diagnoses Acute posthemorrhagic anemia (04/06/23) Pain in right knee (04/06/23) Acute kidney failure, unspecified (04/06/23) Contusion of right knee, initial encounter (04/06/23) Subjective Subjective Still with pain in right knee. Objective Data Objective Data Vital Signs: Vital Signs Temp Pulse Resp BP Pulse Ox O2 Del Method 36.8 C 55 L 18 128/55 H 98 Room Air 04/08/23 02:54 04/08/23 02:54 04/08/23 02:54 04/08/23 02:54 04/08/23 07:30 04/08/23 07:30 Oxygen Delivery Method Room Air Weight: 132.9 kg Body Mass Index (BMI) 44.5 Intake & Output: Intake and Output for Last 24 Hours 04/06/23 04/07/23 04/08/23 23:59 23:59 23:59 Intake Total 3705.00 / 4305.00 600 / 600 Output Total 1430 / 1430 550 / 550 Balance 2275.00 / 2875.00 50 / 50 Lab / Micro Data 04/08/23 09:30 04/08/23 09:30 Labs: Laboratory Results - last 24 hr 04/06/23 19:48: Crossmatch See Detail 04/07/23 08:32: POC Glucose 268 H 04/07/23 10:22: WBC 4.7, RBC 2.85 L, Hgb 8.6 L, Hct 27.0 L, MCV 94.7, MCH 30.2, MCHC 31.9 L, RDW Std Deviation 53.2 H, RDW Coeff of Kevyn 15.4 H, Plt Count 172, MPV 11.2, Immature Gran % (Auto) 0.800, Neut % (Auto) 73.6 H, Lymph % (Auto) 11.8 L, [place] % (Auto) 10.6 H, Eos % (Auto) 1.9, Baso % (Auto) 1.3 H, Absolute Neuts (auto) 3.5, Absolute Lymphs (auto) 0.56 L, Nucleated RBC % 0, Sodium 140, Potassium 4.0, Chloride 111 H, Carbon Dioxide 23.0, Anion Gap 6, BUN 32 H, Creatinine 1.57 H, Estim Creat Clear Calc 32.67, Est GFR (MDRD) Af Amer 42 L, Est GFR (MDRD) Non-Af 34 L, BUN/Creatinine Ratio 20.4 H, Glucose 285 H, Calcium 8.3 L, Total Bilirubin 1.30 H, AST 45 H, ALT 19, Alkaline Phosphatase 47, Total Protein 6.0 L, Albumin 2.8 L, Globulin 3.2, Albumin/Globulin Ratio 0.9 04/07/23 11:44: POC Glucose 240 H 04/07/23 16:41: POC Glucose 149 H 04/07/23 20:57: POC Glucose 80 04/08/23 06:14: POC Glucose 181 H Micro: Microbiology 04/06/23 20:15 Stool Stool Occult Blood (MARY) - Final Physical Exam Const alert and no apparent distress HEENT head/scalp atraumatic and moist oral mucous membranes Resp normal respiratory effort, no retractions, no use of accessory muscles and clear to auscultation bilaterally Cardio regular rate, regular rhythm, S1 normal heart sound and S2 normal heart sound GI normal to inspection, nondistended, normoactive bowel sounds, soft to palpation, non-tender and non-distended Extremity Extremity Narrative: right leg wrapped. ecchymosis noted in anterior right knee. Assessment & Plan Assessment/Plan (1) Acute pain of right knee: PLAN: s/p fall CT leg showed no fracture, but hematomas measuring upt to 17cm Ortho contacted and consulted. Aspiration attempted at bedside, but unsuccessful. Plan for conservative mgmt at time. WBAT Anticipate pt will need SNF upon discharge as she had a very limited performance status prior. (2) Hematoma of right knee region: PLAN: s/p fall while on rivaroxaban rivaroxaban held ortho on consult for potential evacuation on the . (3) Acute blood loss anemia: PLAN: Hg dropped from 8.2 to 7. Improved post transfusion to 8.6, now down to 7.6 Hold on additional transfusions at this time. (4) CHRISTIAN (acute kidney injury): PLAN: Improving. Cr 1.22 on 11/12/21, Cr 1.86 on 04/06/23 On IVF Bumetanide held PLAN: Plan Chronic conditions: * PAF: Hold rivaroxaban. Continue amiodarone. * Hypertension: Hold bumetanide * Hyperlipidemia: hold fenofibric acid * Hypothyroidism: continue levothyroxine * Diabetes mellitus type II: Hold oral home regimen, continue home insulin regimen, ADA diet, accu checks w/ ISS. * KASANDRA: Patient from discussion is unable to tolerate CPAP, encouraged her to continue outpatient follow-up for other modalities. * CAD: Status post CABG x4, will continue statin, not on beta-brandon or LAUREL inhibitor/ARB possibly secondary to underlying renal disease and bradycardia noted upon presentation, on amiodarone for PAF of note. Holding anticoagulant therapy given acute presentation. * Morbid Obesity: Weight loss and lifestyle changes encouraged. DVT prophylaxis: SCD to LLE only. CODE status: Full To SNF ([facility]) when stable. Charges/Coding Visit Charges Inpatient E&M: 13679 Subs Hosp L2
--- NOTE | 2023-04-08 08:47 | CASEMGMT ---
Discharge Planning Patient updated on SNF responses. She would like to proceed with [facility]. [facility] notified via [facility] and asked to begin precert. OP asked to disregard referral. Josie Rubin, Discharge Planning Asst.
[2023-04-08] MEDS: 0.9% Normal Saline 1,000 ML 100 ML IV (09:11)
[2023-04-08] MEDS: Amiodarone 200 MG Tablet 100 MG PO (09:11)
[2023-04-08 09:46] LABS: Absolute Lymphocyte Count 0.79 X10^3/uL (0.83-4.51); Absolute Neutrophil Count 4.3 X10^3/uL (2.0-7.7); Basophil# 0.05 X10^3/uL; Basophil% 0.8 % (0-1); Eosinophil# 0.08 X10^3/uL; Eosinophils% 1.4 % (0-5); Hematocrit 24.7 % (37-47); Hemoglobin 7.6 g/dL (12.0-15.0); Lymphocyte # 0.79 X10^3/ul (0.83-4.51); Lymphocyte % 13.4 % (19-41); Mean Corp Hgb Conc 30.8 g/dL (32-36); Mean Corpuscular Hgb 29.3 pg (27.0-32.0); Mean Corpuscular Volume 95.4 fL (81-99); Mean Platelet Vol. 11.2 fl (6.2-12.0); Monocyte# 0.62 X10^3/uL; Monocyte% 10.5 % (0-10); NRBC Flagged by Analyzer 0 % (0-5); Neutrophil % 73.1 % (47-70); Platelet Count 165 K/mm3 (150-450); RBC Distribution Width CV 15.6 % (11.6-14.6); RBC Distribution Width SD 54.7 fl (35.1-43.9); Red Blood Count 2.59 M/mm3 (4.2-5.4); White Blood Count 5.9 K/mm3 (4.4-11.0)
[2023-04-08 10:13] LABS: Anion Gap 5 (5-15); BUN 28 mg/dL (7-18); BUN/Creat Ratio 19.3 RATIO (10-20); Calcium,Total 8.2 mg/dL (8.5-10.1); Chloride 108 mmol/L (98-107); Creatinine, Serum 1.45 mg/dL (0.55-1.02); EST Glomerular Filtration Rate 38 mL/min (>60); Est Glom Filt Rate - Afr Amer 46 mL/min (>60); Estimated Creatinine Clearance 35.38 ml/min; Glucose 238 mg/dL (74-106); Potassium 4.1 mmol/L (3.5-5.1); Sodium Level 136 mmol/L (136-145)
[2023-04-08] MEDS: Insulin Lispro 100 UNIT/ML INSULN.PEN SC ×3 (11:40→22:49)
[2023-04-08] MEDS: Insulin Lispro 100 UNIT/ML INSULN.PEN 18 UNIT SC (11:40)
[2023-04-08 12:00] LABS: Bedside Glucose 217 mg/dL (74-106)
--- NOTE | 2023-04-08 12:16 | CASEMGMT ---
Social work Precert has been obtained for admission to [facility]. Physician updated and pt is not medically ready for discharge today. SW updated pt and she is understanding of plan. CC to pt notified. Plan: [facility], when medically ready CHIKI Covarrubias
[2023-04-08 15:58] LABS: Hematocrit 18.8 % (37-47); POSITIVE COUNT YES
[2023-04-08 16:03] LABS: Hemoglobin 5.5 g/dL (12.0-15.0)
--- NOTE | 2023-04-08 16:50 | CT_ITS ---
EXAM: CT RIGHT LOWER EXTREMITY WITHOUT INTRAVENOUS CONTRAST CLINICAL INDICATION: right leg hematoma TECHNIQUE: Helically acquired images were obtained of the right lower extremity without intravenous contrast. 2-D reformats were performed by the technologist. This CT exam was performed using one or more of the following dose reduction techniques: automated exposure control, adjustment of the mA and/or kV according to patient size, and/or use of iterative reconstruction technique. COMPARISON: 04/06/2023. FINDINGS: BONES/JOINTS: Osteoarthrosis of the patellofemoral and lateral compartments with joint space narrowing, sclerosis and/or spurring. Irregularity of the lateral tibial surface consistent with degenerative changes. Trace knee joint effusion. No fracture or dislocation. SOFT TISSUES: 12.8 x 3.4 x 15.5 cm hyperdense soft tissue lesion in the anterior and lateral knee and proximal leg consistent with hematoma. Trace soft gas within the hematoma consistent with injury. Marked soft tissue swelling around the leg, greater inferiorly. No significant change from the prior study. CT/Extremity Lower without Contra IMPRESSION: 1. Large soft tissue hematoma. 2. No evidence of fracture. 3. Mild osteoarthrosis. Electronically Signed: Nichole Mcmanus MD at 20:25 EDT Reading Location ID and State: [id number] / Tel , Service support ,
[2023-04-08 17:50] LABS: Bedside Glucose 311 mg/dL (74-106)
[2023-04-08] MEDS: 0.9% Saline Lock 10 ML Syringe IV (21:43)
[2023-04-08] MEDS: Atorvastatin Calcium 40 MG Tablet PO (22:48)
[2023-04-08] MEDS: Insulin Glargine-YFGN 100 UNIT/ML Pen 30 UNIT SC (22:50)
[2023-04-08 23:14] LABS: Bedside Glucose 329 mg/dL (74-106)
[2023-04-09 01:34] VITALS: BP 149/57; PULSE 61; RESP 16; TEMP 37.3; O2SAT 97
[2023-04-09] MEDS: 0.9% Saline Lock 10 ML Syringe IV (01:38)
[2023-04-09] MEDS: 0.9% Normal Saline 1,000 ML 100 ML IV (02:40)
[2023-04-09 05:52] VITALS: BP 145/54; PULSE 60; RESP 18; TEMP 36.9; O2SAT 100
[2023-04-09] MEDS: Senna/Docusate Sodium 1 Tablet 2 TABLET PO (05:58)
[2023-04-09] MEDS: Levothyroxine 100 MCG Tablet 200 MCG PO (05:58)
[2023-04-09 06:00] VITALS: BMI 44.2
[2023-04-09 06:44] LABS: Absolute Lymphocyte Count 0.88 X10^3/uL (0.83-4.51); Absolute Neutrophil Count 5.3 X10^3/uL (2.0-7.7); Basophil# 0.05 X10^3/uL; Basophil% 0.7 % (0-1); Eosinophil# 0.06 X10^3/uL; Eosinophils% 0.8 % (0-5); Hematocrit 29.5 % (37-47); Lymphocyte # 0.88 X10^3/ul (0.83-4.51); Lymphocyte % 12.2 % (19-41); Mean Corp Hgb Conc 30.5 g/dL (32-36); Mean Corpuscular Hgb 28.6 pg (27.0-32.0); Mean Corpuscular Volume 93.7 fL (81-99); Mean Platelet Vol. 11.8 fl (6.2-12.0); Monocyte# 0.87 X10^3/uL; Monocyte% 12.1 % (0-10); NRBC Flagged by Analyzer 0 % (0-5); Neutrophil # 5.28 X10^3/uL (2.7-7.7); Neutrophil % 73.4 % (47-70); Platelet Count 168 K/mm3 (150-450); RBC Distribution Width CV 15.9 % (11.6-14.6); RBC Distribution Width SD 53.9 fl (35.1-43.9); Red Blood Count 3.15 M/mm3 (4.2-5.4); White Blood Count 7.2 K/mm3 (4.4-11.0)
--- NOTE | 2023-04-09 07:38 | PCM.PN.HOSP ---
Reason for Visit Reason for Visit: Diagnoses Acute posthemorrhagic anemia (04/06/23) Pain in right knee (04/06/23) Acute kidney failure, unspecified (04/06/23) Contusion of right knee, initial encounter (04/06/23) Subjective Subjective Knee pain improving. Swelling improving. Objective Data Objective Data Vital Signs: Vital Signs Temp Pulse Resp BP Pulse Ox O2 Del Method 36.9 C 60 18 145/54 H 100 Room Air 04/09/23 05:52 04/09/23 05:52 04/09/23 05:52 04/09/23 05:52 04/09/23 05:52 04/09/23 05:52 Oxygen Delivery Method Room Air Weight: 132 kg Body Mass Index (BMI) 44.2 Intake & Output: Intake and Output for Last 24 Hours 04/07/23 04/08/23 04/09/23 23:59 23:59 23:59 Intake Total 3705.00 / 4305.00 3420 / 3420 530 / 530 Output Total 1430 / 1430 1950 / 1950 500 / 500 Balance 2275.00 / 2875.00 1470 / 1470 30 / 30 Lab / Micro Data 04/09/23 05:45 04/08/23 09:30 Labs: Laboratory Results - last 24 hr 04/07/23 19:48: Crossmatch See Detail 04/08/23 09:30: WBC 5.9, RBC 2.59 L, Hgb 7.6 L, Hct 24.7 L, MCV 95.4, MCH 29.3, MCHC 30.8 L, RDW Std Deviation 54.7 H, RDW Coeff of Kevyn 15.6 H, Plt Count 165, MPV 11.2, Immature Gran % (Auto) 0.800, Neut % (Auto) 73.1 H, Lymph % (Auto) 13.4 L, [place] % (Auto) 10.5 H, Eos % (Auto) 1.4, Baso % (Auto) 0.8, Absolute Neuts (auto) 4.3, Absolute Lymphs (auto) 0.79 L, Nucleated RBC % 0, Sodium 136, Potassium 4.1, Chloride 108 H, Carbon Dioxide 23.0, Anion Gap 5, BUN 28 H, Creatinine 1.45 H, Estim Creat Clear Calc 35.38, Est GFR (MDRD) Af Amer 46 L, Est GFR (MDRD) Non-Af 38 L, BUN/Creatinine Ratio 19.3, Glucose 238 H, Calcium 8.2 L 04/08/23 11:37: POC Glucose 217 H 04/08/23 15:48: Hgb 5.5 L*, Hct 18.8 L, Diff Path Review January04/08/23 17:30: POC Glucose 311 H 04/08/23 22:46: POC Glucose 329 H 04/09/23 05:45: WBC 7.2, RBC 3.15 L, Hgb 9.0 L, Hct 29.5 L, MCV 93.7, MCH 28.6, MCHC 30.5 L, RDW Std Deviation 53.9 H, RDW Coeff of Kevyn 15.9 H, Plt Count 168, MPV 11.8, Immature Gran % (Auto) 0.800, Neut % (Auto) 73.4 H, Lymph % (Auto) 12.2 L, [place] % (Auto) 12.1 H, Eos % (Auto) 0.8, Baso % (Auto) 0.7, Absolute Neuts (auto) 5.3, Absolute Lymphs (auto) 0.88, Nucleated RBC % 0 Micro: Microbiology 04/06/23 20:15 Stool Stool Occult Blood (MARY) - Final Radiography Diagnostic Testing: Radiology Impression Lower Extremity CT 04/08/23 16:50 IMPRESSION: 1. Large soft tissue hematoma. 2. No evidence of fracture. 3. Mild osteoarthrosis. Electronically Signed: Nichole Mcmanus MD at 20:25 EDT Reading Location ID and State: [id number] / Tel , Service support , Physical Exam Const alert and no apparent distress HEENT head/scalp atraumatic Extremity Extremity Narrative: ecchymosis right knee. swelling of right knee. Neuro oriented x3 and moves all extremities Sensorium / Orientation: awake and alert Psych affect normal Assessment & Plan Assessment/Plan (1) Acute pain of right knee: PLAN: s/p fall CT leg showed no fracture, but hematomas measuring upt to 17cm Ortho contacted and consulted. Aspiration attempted at bedside, but unsuccessful. Plan for conservative mgmt at time. WBAT Anticipate pt will need SNF upon discharge as she had a very limited performance status prior. (2) Hematoma of right knee region: PLAN: s/p fall while on rivaroxaban rivaroxaban held No plan for evacuation. repeat CT showed hematoma 12.8x3.4x15.5 (3) Acute blood loss anemia: PLAN: Hg dropped from 8.2 to 7. Improved post transfusion to 8.6, now down to 7.6 Dropped to 5.5. Transfused 2 units PRBCs. Now 9. Repeat Hg. (4) CHRISTIAN (acute kidney injury): PLAN: Improving. Cr 1.22 on 11/12/21, Cr 1.86 on 04/06/23 On IVF Bumetanide held PLAN: Plan Chronic conditions: PAF: Hold rivaroxaban. Continue amiodarone. Hypertension: Hold bumetanide Hyperlipidemia: hold fenofibric acid Hypothyroidism: continue levothyroxine Diabetes mellitus type II: Hold oral home regimen, continue home insulin regimen, ADA diet, accu checks w/ ISS. KASANDRA: Patient from discussion is unable to tolerate CPAP, encouraged her to continue outpatient follow-up for other modalities. CAD: Status post CABG x4, will continue statin, not on beta-brandon or LAUREL inhibitor/ARB possibly secondary to underlying renal disease and bradycardia noted upon presentation, on amiodarone for PAF of note. Holding anticoagulant therapy given acute presentation. Morbid Obesity: Weight loss and lifestyle changes encouraged. DVT prophylaxis: SCD to LLE only. CODE status: Full To SNF ([facility]) when stable. Charges/Coding Visit Charges Inpatient E&M: 65068 Subs Hosp L2
[2023-04-09 07:52] VITALS: O2SAT 93
[2023-04-09 07:59] VITALS: BP 143/56; PULSE 57; RESP 16; TEMP 36.7; O2SAT 99
[2023-04-09] MEDS: Insulin Lispro 100 UNIT/ML INSULN.PEN 12 UNIT SC (08:16)
[2023-04-09] MEDS: Amiodarone 200 MG Tablet 100 MG PO (08:16)
[2023-04-09] MEDS: Insulin Lispro 100 UNIT/ML INSULN.PEN SC ×2 (08:17→12:18)
[2023-04-09 08:39] LABS: Bedside Glucose 227 mg/dL (74-106)
--- NOTE | 2023-04-09 09:02 | TREXTCAR_ITS ---
Diet Diet Order/Speech Therapy: 04/07/23 00:28 Diet: Consistent Carb - Calorie Controlled Food consistency:: Regular Liquid Consistency:: Regular/Thin How many daily calories?: 1800 calorie Routine Orders/Code Status Routine Lab Work: CBC (04/12 and 04/14) and BMP (Mondays) Code Status: Full Code Therapies Weight Bearing: Weight bearing as tolerated Extremity Affected:: Right Lower Physical Therapy: Eval and Treat Occupational Therapy: Eval and Treat Problem/Diagnosis (1) Acute pain of right knee: Status: Acute Code(s): M25.561 - Pain in right knee Plan: s/p fall CT leg showed no fracture, but hematomas measuring upt to 17cm Ortho contacted and consulted. Aspiration attempted at bedside, but unsuccessful. Plan for conservative mgmt at time. WBAT Anticipate pt will need SNF upon discharge as she had a very limited performance status prior. (2) Hematoma of right knee region: Status: Acute Code(s): S80.01XA - Contusion of right knee, initial encounter Plan: s/p fall while on rivaroxaban rivaroxaban held No plan for evacuation. repeat CT showed hematoma 12.8x3.4x15.5 (3) Acute blood loss anemia: Status: Acute Code(s): D62 - Acute posthemorrhagic anemia Plan: Hg dropped from 8.2 to 7. Improved post transfusion to 8.6, now down to 7.6 Dropped to 5.5. Transfused 2 units PRBCs. Now 9. Repeat Hg. (4) CHRISTIAN (acute kidney injury): Status: Acute Code(s): N17.9 - Acute kidney failure, unspecified Plan: Improving. Cr 1.22 on 11/12/21, Cr 1.86 on 04/06/23 On IVF Bumetanide held Plan Chronic conditions: * PAF: Hold rivaroxaban. Continue amiodarone. * Hypertension: Hold bumetanide * Hyperlipidemia: hold fenofibric acid * Hypothyroidism: continue levothyroxine * Diabetes mellitus type II: Hold oral home regimen, continue home insulin regimen, ADA diet, accu checks w/ ISS. * KASANDRA: Patient from discussion is unable to tolerate CPAP, encouraged her to continue outpatient follow-up for other modalities. * CAD: Status post CABG x4, will continue statin, not on beta-brandon or LAUREL inhibitor/ARB possibly secondary to underlying renal disease and bradycardia noted upon presentation, on amiodarone for PAF of note. Holding anticoagulant therapy given acute presentation. * Morbid Obesity: Weight loss and lifestyle changes encouraged. DVT prophylaxis: SCD to LLE only. CODE status: Full To SNF ([facility]) when stable. Allergies/Procedures Done in Hospital Allergies hydralazine HCl [From Apresoline] Allergy (Verified 04/07/23 00:40) Other numbness to face ondansetron [From Zofran] Adverse Reaction (Verified 04/07/23 00:40) Nausea Procedures: None Type of Care/Length of Stay Estimated LOS: Convalescent Care Less Than 30 days Type of Care Needed: Skilled Rehab Potential: Fair Prognosis: Good Additional Orders/Day of Discharge Day of Discharge: 04/09/23 Dietary and Speech Recommendations Dietitian Recommendations/Changes: Continue 1800 CCD diet to manage blood sugar. If PO intakes are adequate will add Cardiac diet. Discharge Plan Admission Admit Date/Time: 04/06/23 23:06 Primary Reason for Your Visit: right leg hematoma. acute blood loss anemia. Attending Provider: Yohannes Peña Primary Care Provider: Maggi Chicas Consulting Providers: Tyrese Gallegos; Toshia Conroy Discharge Orders/Prescriptions Prescriptions: New oxycodone 5 mg Tablet 5 mg PO Q4H PRN PRN (Reason: Pain Score 4-10) 3 Days Qty: 12 0RF insulin lispro [Humalog KwikPen Insulin] 100 unit/mL Insulin Pen See Protocol subcut 4X/DAYCM Qty: 0 0RF Protocol: 3. Sliding Scale Insulin Med Dosing Condition: 150-189 mg/dl = 1 unit Condition: 190-229 mg/dl = 2 units Condition: 230-269 mg/dl = 3 units Condition: 270-309 mg/dl = 4 units Condition: 310-349 mg/dl = 5 units Condition: 350-399 mg/dl = 6 units Condition: 400-449 mg/dl = 7 units Condition: Greater than 449 call physician Protocol Text: - Use for Total Daily Dose of Insulin 37-55 units - Obsese, infected, or steroid patients MEDIUM DOSING ALGORITHIM sennosides-docusate sodium [Stool Softener-Stimulant Laxat] 8.6-50 mg Tablet 2 tab PO BID PRN PRN (Reason: Constipation) Qty: 0 0RF Continued atorvastatin 40 MG tablet 40 mg PO QHS Patient Comments: CHOLESTEROL LOWERING fenofibric acid (choline) [Trilipix] 135 MG capsule,delayed release(DR/EC) 135 mg PO DAILY Patient Comments: cholesterol levothyroxine 175 MCG tablet 200 mcg PO DAILY bumetanide 0.5 mg Tablet 0.5 mg PO DAILY insulin lispro [Humalog U-100 Insulin] 100 unit/mL Solution 12 unit SUBCUT BREAKFAST insulin lispro 100 unit/mL Solution 25 unit SUBCUT DINNER Touj[employer] SoloStar U-300 Insulin 300 unit/mL (1.5 mL) Insulin Pen 30 unit SUBCUT QHS acetaminophen 500 mg Tablet 1,000 mg PO Q6H PRN PRN (Reason: Pain Score 1-5) Qty: 0 0RF insulin lispro 100 unit/mL Insulin Pen 18 unit SUBCUT LUNCH amiodarone 200 mg tablet 100 mg PO DAILY Patient Comments: TAKE 1 TABLET DAILY Held Xarelto 15 mg tablet 20 mg PO DAILY Hold Instructions: Resume on 04/16/23. Discontinued doxycycline monohydrate 100 mg tablet 100 mg PO Q24H Patient Comments: TAKE 1 TABLET BY MOUTH TWICE DAILY Referrals / Follow Up: Maggi Chicas DO [Primary Care Provider] -
[2023-04-09] MEDS: oxyCODONE 5 MG Tablet PO ×2 (10:10→15:19)
[2023-04-09] MEDS: Acetaminophen 325 MG Tablet 650 MG PO ×2 (10:10→15:17)
[2023-04-09] MEDS: Insulin Lispro 100 UNIT/ML INSULN.PEN 18 UNIT SC (12:18)
[2023-04-09 12:24] LABS: Hematocrit 29.2 % (37-47); Hemoglobin 9.1 g/dL (12.0-15.0)
--- NOTE | 2023-04-09 12:28 | DS.PCM_ITS ---
Providers Date of Admission: 04/06/23 Primary Care Physician: Dr. Maggi Chicas, DO Consultations 04/07/23 00:27 Consult: Orthopedics Routine Consulting Provider: Tyrese Gallegos Reason for Consult: Acute RLE hematoma s/p fall. EMERGENT Consult: No MD Notified: Yes Date Notified: 04/07/23 Time Notified: 00:05 Method of Notification: ED Physician Initiated Reason For Visit: FALL, R KNEE HEMATOMA Diagnosis Discharge Diagnosis (1) Acute pain of right knee: Status: Acute Code(s): M25.561 - Pain in right knee Plan: s/p fall CT leg showed no fracture, but hematomas measuring upt to 17cm WBAT Anticipate pt will need SNF upon discharge as she had a very limited performance status prior. (2) Hematoma of right knee region: Status: Acute Code(s): S80.01XA - Contusion of right knee, initial encounter Plan: s/p fall while on rivaroxaban rivaroxaban held Ortho contacted and consulted. Aspiration attempted at bedside, but unsuccessful. Plan for conservative mgmt at time--no surgery. No plan for evacuation. repeat CT showed hematoma 12.8x3.4x15.5 (3) Acute blood loss anemia: Status: Acute Code(s): D62 - Acute posthemorrhagic anemia Plan: Hg dropped from 8.2 to 7. Improved post transfusion to 8.6, now down to 7.6 Dropped to 5.5. Transfused 2 units PRBCs. Now 9. Repeat Hg. (4) CHRISTIAN (acute kidney injury): Status: Acute Code(s): N17.9 - Acute kidney failure, unspecified Plan: Improving. Cr 1.22 on 11/12/21, Cr 1.86 on 04/06/23 Plan Chronic conditions: * PAF: Hold rivaroxaban until 04/16 given large hematoma and anemia. Continue amiodarone. * Hypertension: Hold bumetanide * Hyperlipidemia: hold fenofibric acid * Hypothyroidism: continue levothyroxine * Diabetes mellitus type II: Hold oral home regimen, continue home insulin regimen, ADA diet, accu checks w/ ISS. * KASANDRA: Patient from discussion is unable to tolerate CPAP, encouraged her to continue outpatient follow-up for other modalities. * CAD: Status post CABG x4, will continue statin, not on beta-brandon or LAUREL inhibitor/ARB possibly secondary to underlying renal disease and bradycardia noted upon presentation, on amiodarone for PAF of note. Holding anticoagulant therapy given acute presentation. * Morbid Obesity: Weight loss and lifestyle changes encouraged. DVT prophylaxis: SCD to LLE only. CODE status: Full To SNF ([facility]) Medications at Discharge Home Medications atorvastatin 40 mg tablet 40 mg PO QHS Cholesterol 09/07/14 fenofibric acid (choline) 135 mg capsule,delayed release (Trilipix) 135 mg PO DA RADHA Cholesterol 09/07/14 levothyroxine 175 mcg tablet 200 mcg PO DAILY Thyroid 04/12/20 bumetanide 0.5 mg tablet 0.5 mg PO DAILY BP 02/17/21 insulin glargine U-300 conc 300 unit/mL (1.5 mL) subcutaneous pen (Toujeo SoloStar U-300 Insulin) 30 unit subcut QHS Diabetes 02/17/21 insulin lispro 100 unit/mL subcutaneous solution 25 unit subcut DINNER Diabetes 02/17/21 insulin lispro 100 unit/mL subcutaneous solution (Humalog U-100 Insulin) 12 unit subcut BREAKFAST Diabetes 02/17/21 acetaminophen 500 mg tablet 1,000 mg (2 x 500 mg) PO Q6H PRN PRN Pain Score 1-5 #0 tabs 05/14/21 insulin lispro 100 unit/mL subcutaneous pen 18 unit subcut LUNCH diabetes 05/30/21 rivaroxaban 15 mg tablet (Xarelto) 20 mg PO DAILY blood thinner 05/30/21 amiodarone 200 mg tablet 100 mg PO DAILY hrt 11/12/21 insulin lispro 100 unit/mL subcutaneous pen (Humalog KwikPen (U-100) Insulin) See Protocol subcut 4X/DAYCM #0 mL 04/09/23 oxycodone 5 mg tablet 5 mg PO Q4H PRN PRN Pain Score 4-10 3 days #12 tabs 04/09 sennosides 8.6 mg-docusate sodium 50 mg tablet (Stool Softener-Stimulant Laxative) 2 tab PO BID PRN PRN Constipation #0 tabs 04/09/23 Hospital Course Operations None Procedures None Summary of Care Provided Minutes Spent on Discharge: 32 Weight / BMI Weight Weight: 132 kg Body Mass Index (BMI) 44.2 ABG / Lab / Microbiology Data 04/09/23 12:11 04/08/23 09:30 Laboratory: Laboratory Results - last 24 hr 04/07/23 19:48: Crossmatch See Detail 04/08/23 15:48: Hgb 5.5 L*, Hct 18.8 L, Diff Path Review January04/08/23 17:30: POC Glucose 311 H 04/08/23 22:46: POC Glucose 329 H 04/09/23 05:45: WBC 7.2, RBC 3.15 L, Hgb 9.0 L, Hct 29.5 L, MCV 93.7, MCH 28.6, MCHC 30.5 L, RDW Std Deviation 53.9 H, RDW Coeff of Kevyn 15.9 H, Plt Count 168, MPV 11.8, Immature Gran % (Auto) 0.800, Neut % (Auto) 73.4 H, Lymph % (Auto) 12.2 L, Gove % (Auto) 12.1 H, Eos % (Auto) 0.8, Baso % (Auto) 0.7, Absolute Neuts (auto) 5.3, Absolute Lymphs (auto) 0.88, Nucleated RBC % 0 04/09/23 07:58: POC Glucose 227 H 04/09/23 12:11: Hgb 9.1 L, Hct 29.2 L Microbiology: Microbiology 04/06/23 20:15 Stool Stool Occult Blood (MARY) - Final Radiography Diagnostic Testing: Radiology Impression Lower Extremity CT 04/08/23 16:50 IMPRESSION: 1. Large soft tissue hematoma. 2. No evidence of fracture. 3. Mild osteoarthrosis. Electronically Signed: Nichole Mcmanus MD at 20:25 EDT Reading Location ID and State: [id number] / Tel , Service support , Meaningful Use Info Meaningful Use Diagnoses (Choose all that apply): None applicable Discharge Plan Admission Admit Date/Time: 04/06/23 23:06 Primary Reason for Your Visit: right leg hematoma. acute blood loss anemia. Attending Provider: Yohannes Peña Primary Care Provider: Maggi Chicas Consulting Providers: Tyrese Gallegos; Toshia Conroy Discharge Orders/Prescriptions Prescriptions: New oxycodone 5 mg Tablet 5 mg PO Q4H PRN PRN (Reason: Pain Score 4-10) 3 Days Qty: 12 0RF insulin lispro [Humalog KwikPen Insulin] 100 unit/mL Insulin Pen See Protocol subcut 4X/DAYCM Qty: 0 0RF Protocol: 3. Sliding Scale Insulin Med Dosing Condition: 150-189 mg/dl = 1 unit Condition: 190-229 mg/dl = 2 units Condition: 230-269 mg/dl = 3 units Condition: 270-309 mg/dl = 4 units Condition: 310-349 mg/dl = 5 units Condition: 350-399 mg/dl = 6 units Condition: 400-449 mg/dl = 7 units Condition: Greater than 449 call physician Protocol Text: - Use for Total Daily Dose of Insulin 37-55 units - Obsese, infected, or steroid patients MEDIUM DOSING ALGORITHIM sennosides-docusate sodium [Stool Softener-Stimulant Laxat] 8.6-50 mg Tablet 2 tab PO BID PRN PRN (Reason: Constipation) Qty: 0 0RF Continued atorvastatin 40 MG tablet 40 mg PO QHS Patient Comments: CHOLESTEROL LOWERING fenofibric acid (choline) [Trilipix] 135 MG capsule,delayed release(DR/EC) 135 mg PO DAILY Patient Comments: cholesterol levothyroxine 175 MCG tablet 200 mcg PO DAILY bumetanide 0.5 mg Tablet 0.5 mg PO DAILY insulin lispro [Humalog U-100 Insulin] 100 unit/mL Solution 12 unit SUBCUT BREAKFAST insulin lispro 100 unit/mL Solution 25 unit SUBCUT DINNER Toujeo SoloStar U-300 Insulin 300 unit/mL (1.5 mL) Insulin Pen 30 unit SUBCUT QHS acetaminophen 500 mg Tablet 1,000 mg PO Q6H PRN PRN (Reason: Pain Score 1-5) Qty: 0 0RF insulin lispro 100 unit/mL Insulin Pen 18 unit SUBCUT LUNCH amiodarone 200 mg tablet 100 mg PO DAILY Patient Comments: TAKE 1 TABLET DAILY Held Xarelto 15 mg tablet 20 mg PO DAILY Hold Instructions: Resume on 04/16/23. Discontinued doxycycline monohydrate 100 mg tablet 100 mg PO Q24H Patient Comments: TAKE 1 TABLET BY MOUTH TWICE DAILY Referrals / Follow Up: Maggi Chicas DO [Primary Care Provider] - Disposition Disposition (needs filled in before D/C Order can be placed): [facility] Facility
--- NOTE | 2023-04-09 12:36 | PHA.DC_ITS ---
Pharmacy [place] Med Reconciliation Pharmacy Service has performed discharge medication reconciliation for this patient upon transfer to [facility]. The patient's discharge medication list was reviewed for discrepancies and discrepancies were resolved. Medications at Discharge Home Medications atorvastatin 40 mg tablet 40 mg PO QHS Cholesterol 09/07/14 fenofibric acid (choline) 135 mg capsule,delayed release (Trilipix) 135 mg PO DAILY Cholesterol 09/07/14 levothyroxine 175 mcg tablet 200 mcg PO DAILY Thyroid 04/12/20 bumetanide 0.5 mg tablet 0.5 mg PO DAILY BP 02/17/21 insulin glargine U-300 conc 300 unit/mL (1.5 mL) subcutaneous pen (Toujeo SoloStar U-300 Insulin) 30 unit subcut QHS Diabetes 02/17/21 insulin lispro 100 unit/mL subcutaneous solution 25 unit subcut DINNER Diabetes 02/17/21 insulin lispro 100 unit/mL subcutaneous solution (Humalog U-100 Insulin) 12 unit subcut BREAKFAST Diabetes 02/17/21 acetaminophen 500 mg tablet 1,000 mg (2 x 500 mg) PO Q6H PRN PRN Pain Score 1-5 #0 tabs 05/14/21 insulin lispro 100 unit/mL subcutaneous pen 18 unit subcut LUNCH diabetes 05/30/21 rivaroxaban 15 mg tablet (Xarelto) 20 mg PO DAILY blood thinner 05/30/21 amiodarone 200 mg tablet 100 mg PO DAILY hrt 11/12/21 insulin lispro 100 unit/mL subcutaneous pen (Humalog KwikPen (U-100) Insulin) See Protocol subcut 4X/DAYCM #0 mL 04/09/23 oxycodone 5 mg tablet 5 mg PO Q4H PRN PRN Pain Score 4-10 3 days #12 tabs 04/09/23 sennosides 8.6 mg-docusate sodium 50 mg tablet (Stool Softener-Stimulant Laxative) 2 tab PO BID PRN PRN Constipation #0 tabs 04/09/23
[2023-04-09 12:59] LABS: Pathologist Review Reviewed
[2023-04-09 13:04] LABS: Bedside Glucose 201 mg/dL (74-106)
--- NOTE | 2023-04-09 13:08 | CASEMGMT ---
Social Work SW completed the hospital exemption in the [facility] system. Pt to [facility] skilled today. D/C neighborhood planner Josie setting up the discharge. TSERING Gomez
--- NOTE | 2023-04-09 13:11 | CASEMGMT ---
Discharge Planning Discharge orders and transport time sent to [facility] via [employer]. [facility] will transport patient by wheelchair at 3:30p. Patient, nursing and SW notified. Patient to notify her daughter. Josie Rubin, Discharge Planning Asst.
[2023-04-09 15:09] VITALS: BP 137/49; PULSE 56; RESP 18; TEMP 36.8; O2SAT 98
--- NOTE | 2023-04-09 15:19 | CASEMGMT ---
Social Work Updated med list sent to [facility] via [employer], new paper copy placed in envelope to go w/pt to [facility]. TSERING Gomez
--- NOTE | 2023-04-09 16:37 | NURSING ---
Report Given to Davida at [facility] at this time. Pt has left for [facility].
== END 2023-04-09 16:22 | disposition skilled nursing facility (03) | DRG 605 ==
LOC: ED 23:10 → MS3 23:36
PROVIDERS: Admitting Provider Family Medicine; Emergency Provider Emergency Medicine
DX: S80.01XA Contusion of right knee, initial encounter (principal); D62 Acute posthemorrhagic anemia; N17.9 Acute kidney failure, unspecified; Z68.41 Body mass index [BMI] 40.0-44.9, adult; E11.22 Type 2 diabetes mellitus with diabetic chronic kidney disease; E11.59 Type 2 diabetes mellitus with other circulatory complications; N18.30 Chronic kidney disease, stage 3 unspecified; I48.91 Unspecified atrial fibrillation; Z79.4 Long term (current) use of insulin; E66.01 Morbid (severe) obesity due to excess calories; I48.0 Paroxysmal atrial fibrillation; I12.9 Hypertensive chronic kidney disease with stage 1 through stage 4 chronic kidney disease, or unspecified chronic kidney disease; E03.9 Hypothyroidism, unspecified; E07.9 Disorder of thyroid, unspecified; E78.5 Hyperlipidemia, unspecified; I25.10 Atherosclerotic heart disease of native coronary artery without angina pectoris; I87.2 Venous insufficiency (chronic) (peripheral); W19.XXXA Unspecified fall, initial encounter; R53.81 Other malaise; Z79.01 Long term (current) use of anticoagulants; Z95.1 Presence of aortocoronary bypass graft
CPT/HCPCS: 36415; 73564; 73700; 80048; 80053; 82274; 82962; 85014; 85018; 85025; 85610; 86850; 86870; 86900; 86901; 86902; 86905; 86920; 86922; 94668; 97110; 97162; 97166; 97530; 97535; 99285; J7030; J7040; P9016; A4216

== ENCOUNTER 2023-04-11 01:52 | Emergency (ER) | payer MEDICARE, SELFPAY ==
[2023-04-11 01:53] VITALS: BP 192/65; PULSE 71; RESP 20; TEMP 36.2; O2SAT 96; BMI 46.8
--- NOTE | 2023-04-11 02:09 | EX.ED.DYSGE1 ---
HPI History of Present Illness Chief Complaint: Lower Extremity Injury [facility] Medical History (Updated 04/11/23 @ 05:[address] Ryan Mcnamara, DO) Anxiety and depression Arthritis CAD (coronary artery disease) CPAP (continuous positive airway pressure) dependence DVT (deep venous thrombosis) History of stress incontinence Hx of necrotizing fasciitis Hypertension Hypothyroidism Insulin dependent diabetes mellitus PAF (paroxysmal atrial fibrillation) Restless legs Wears dentures Home Medications atorvastatin 40 mg tablet 40 mg PO QHS Cholesterol 09/07/14 [History Last Taken 04/06/23] fenofibric acid (choline) 135 mg capsule,delayed release (Trilipix) 135 mg PO DAILY Cholesterol 09/07/14 [History Last Taken 04/06/23] levothyroxine 175 mcg tablet 200 mcg PO DAILY Thyroid 04/12/20 [History Last Taken 04/06/23] bumetanide 0.5 mg tablet 0.5 mg PO DAILY BP 02/17/21 [History Last Taken 04/06/23] insulin glargine U-300 conc 300 unit/mL (1.5 mL) subcutaneous pen (Toujeo SoloStar U-300 Insulin) 30 unit subcut QHS Diabetes 02/17/21 [History Last Taken 04/06/23] insulin lispro 100 unit/mL subcutaneous solution 25 unit subcut DINNER Diabetes 02/17/21 [History Last Taken 04/06/23] insulin lispro 100 unit/mL subcutaneous solution (Humalog U-100 Insulin) 12 unit subcut BREAKFAST Diabetes 02/17/21 [History Last Taken 04/06/23] acetaminophen 500 mg tablet 1,000 mg (2 x 500 mg) PO Q6H PRN PRN Pain Score 1-5 #0 tabs 05/14/21 [Rx Last Taken 04/06/23] insulin lispro 100 unit/mL subcutaneous pen 18 unit subcut LUNCH diabetes 05/30/21 [History Last Taken 04/06/23] rivaroxaban 15 mg tablet (Xarelto) 20 mg PO DAILY blood thinner 05/30/21 [History Last Taken 04/06/23] amiodarone 200 mg tablet 100 mg PO DAILY hrt 11/12/21 [History Last Taken 04/06/23] doxycycline monohydrate 100 mg capsule 100 mg PO DAILY #30 caps 04/09/23 [Rx Last Taken Unknown] insulin lispro 100 unit/mL subcutaneous pen (Humalog KwikPen (U-100) Insulin) See Protocol subcut 4X/DAYCM #0 mL 04/09/23 [Rx Last Taken Unknown] oxycodone 5 mg tablet 5 mg PO Q4H PRN PRN Pain Score 4-10 3 days #12 tabs 04/09/23 [Rx Last Taken Unknown] sennosides 8.6 mg-docusate sodium 50 mg tablet (Stool Softener-Stimulant Laxative) 2 tab PO BID PRN PRN Constipation #0 tabs 04/09/23 [Rx Last Taken Unknown] cephalexin 500 mg capsule 500 mg PO TID 7 days #21 caps 04/11/23 [Rx Last Taken Unknown] sulfamethoxazole 800 mg-trimethoprim 160 mg tablet (Bactrim DS) 1 tab PO BID 7 days #14 tabs 04/11/23 [Rx Last Taken Unknown] Allergy/AdvReac Type Severity Reaction Status Date / Time hydralazine HCl Allergy Other Verified 04/11/23 01:57 [From Apresoline] ondansetron [From Zofran] AdvReac Nausea Verified 04/11/23 01:57 Family History (Updated 04/07/23 @ 02:[address] Toshia Conroy MD) Mother Diabetes Heart disease Hypertension Father Diabetes Heart disease Hypertension Surgical History History of cardiac catheterization History of cardiac radiofrequency ablation History of hip replacement History of quadruple bypass History of total left hip replacement Hx of CABG Hx of cholecystectomy Hx of colonoscopy Hx of tubal ligation Social History (Updated 04/07/23 @ 02:[address] Toshia Conroy MD) household members: none housing: house number of children: 3 Smoking Status: Former smoker alcohol intake: never substance use type: does not use EXAM Physical Exam Const Vital Signs: 04/11/23 01:53 Temperature 97.2 F L Temperature Source Temporal Pulse Rate 71 Respiratory Rate 20 H Blood Pressure 192/65 H Blood Pressure Mean 107 Pulse Ox 96 Oxygen Delivery Method Room Air MDM MDM MDM Narrative Medical decision making narrative: HISTORY OF PRESENT ILLNESS: 72-year-old female here with concern for right lower extremity infection. States she fell last Wednesday. 5 days ago. She notes she was at a longterm last [facility] who is concerned for increasing redness and possibly infection. She notes gradual onset of redness. Over the last several days. She denies any acute onset of redness over last several hours. Notes a blister on the right leg as well. Patient states she is supposed to be on doxycycline however she has been non-compliant with this medication because she cannot tolerate associated nausea. Patient denies active cancer, being bedridden for greater than 3 days, denies any varicose veins, denies any calf tenderness, denies any edema. Denies major surgery within 12 weeks, recent paralysis, previous DVT. REVIEW OF SYSTEMS: Pertinent positives: Right leg pain, swelling Pertinent negatives: Vomiting, fever PHYSICAL EXAM: Nursing triage notes reviewed, Vital signs reviewed Constitutional: please see mdm HENT: MMM Eyes: Pupils equal round and reactive to light, Extraocular muscles intact Neck: No stridor, no JVD, full neck ROM Lungs: Clear to auscultation, No wheezing or rales. No increased work of breathing, no conversational dyspnea, no accessory muscle use, no nasal flaring. No respiratory distress noted Heart: Regular rate and rhythm, No murmurs, No rubs and No gallops, 2+ distal pulses (radial, femoral, posterior tibial) in all extremities Abdomen: Soft, there is no tenderness, rigidity, rebound or guarding, no obvious peritoneal signs, no palpable pulsatile abdominal masses, no auscultated abdominal bruit : No CVAT Extremities: Right leg red and slightly edematous. Neuro: Intact sensation L1-S1 dermatomal distributions. Intact 5/5 strength in hip flexion (T12-L3). Knee extension (L2-L4). Ankle dorsiflexion (L4-L5). Ankle plantar flexion (S1). Great toe extension (L5). 2+ patellar and Achilles DTRs. Skin: Diffuse erythema noted to the l mid tibia as well as over the right knee., No crepitus, no fluctuance or induration MEDICAL DECISION MAKING: Chief Complaint: Right leg pain External records reviewed: Seen on 04/06/2023 for knee pain after fall Factors affecting care: Type 2 diabetes, atrial fibrillation, hypertension, CAD, obesity Social determinants of health: none History obtained from others: The patient's daughter Consults: ALL IMAGES (IF OBTAINED) HAVE BEEN PERSONALLY REVIEWED AND INTERPRETED BY MYSELF. CBC with no leukocytosis, improved anemia, no thrombocytopenia BMP without significant electrolyte normalities, no anion gap suggesting no hypoperfusion, baseline CKD CRP grossly elevated suggestive of systemic inflammation ESR elevated concerning for systemic inflammation MDM Narrative: Patient was initially hypertensive, afebrile, nontoxic-appearing. Exam without crepitus bullae or pain on proportion to exam. Right lower extremity is neurovascularly intact. I considered the following differential diagnosis: Cellulitis, necrotizing Fasciitis, osteomyelitis I obtained labs to ascertain the patient any signs of systemic inflammation, significant dehydration. I Obtained an x-ray to rule any bony destruction. Labs without evidence of elevated white blood cell, there was a markedly elevated CRP concerning for systemic inflammation, yet only mildly elevated ESR this is attributable to cellulitic changes noted in RLE. Patient had a moderate LRINEC score. The patient was not tachycardic, not febrile was nontoxic-appearing. Pain was reported to exam, no rapidly progressive redness, no crepitus no bullae to suggest necrotizing fascitis. There was a blister on the patient's right lower extremity which is suspect is due to inflammatory changes and edema. There is no obvious bullae. I have low suspicion for necrotizing fasciitis at this time. There is no sign of arterial occlusion. X-ray showed no evidence of bony involvement. I offered the patient IV antibiotics and hospitalization however she refused stating she like to try oral antibiotics and return to her longterm. She was alert and oriented x3, she displayed capacity to make her own medical decisions. I was reassured by the patient being at a nursing, she will have access to outside medical sales representative who can closely monitor if symptoms are changing and assure antibiotic compliance. She was given Bactrim and Keflex for anti-MRSA and strep coverage. She was discharged stable condition. The patient and/or family, caregivers express understanding. The patient and/or family, caregivers agrees with the plan. Total critical care time today provided was at least 0 minutes. This excludes separately billable procedures. Critical care time (if documented) is secondary to the patient having high probability of clinically significant/life threatening deterioration in the patient's condition which required my urgent intervention. Shared decision making: I will have a discussion with the patient and or visitors regarding risk/benefits of further testing or admission. They will be made aware of of the risk/benefits inherent in this decision they will be given the opportunity to voice understanding. Lab Data Attestation: I reviewed the patient's lab results. Labs: Laboratory Results - last 24 hr 04/11/23 02:50 WBC 6.7 RBC 3.20 L Hgb 9.2 L Hct 30.2 L MCV 94.4 MCH 28.8 MCHC 30.5 L RDW Std Deviation 54.0 H RDW Coeff of Kevyn 15.7 H Plt Count 221 MPV 11.3 Immature Gran % (Auto) 0.600 Neut % (Auto) 75.1 H Lymph % (Auto) 11.4 L [place] % (Auto) 11.0 H Eos % (Auto) 1.4 Baso % (Auto) 0.5 Absolute Neuts (auto) 5.0 Absolute Lymphs (auto) 0.76 L Nucleated RBC % 0 ESR 36 H Sodium 138 Potassium 3.8 Chloride 110 H Carbon Dioxide 22.0 Anion Gap 6 BUN 25 H Creatinine 1.43 H Estim Creat Clear Calc 35.87 Est GFR (MDRD) Af Amer 46 L Est GFR (MDRD) Non-Af 38 L BUN/Creatinine Ratio 17.5 Glucose 118 H Calcium 8.5 C-React Prot Ext Range 115.00 H Radiography Diagnostic Testing: Clinical Impression(s) from Imaging Studies Tibia/Fibula X-Ray 04/11/23 02:36 IMPRESSION: No acute osseous abnormality of the right tib-fib. Electronically Signed: Dane You MD at 3:14 EDT , X-ray of the right tib-fib shows no evidence of bony involvement, no obvious osteomyelitis, no free air or gas in the subcutaneous tissues. Discharge Plan Triage Chief Complaint: Lower Extremity Injury ED Provider: Ryan Mcnamara Dx/Rx/DC Orders Clinical Impression: Cellulitis Instructions: Cellulitis Dc Prescriptions: New cephalexin 500 mg capsule 500 mg PO TID 7 Days Qty: 21 0RF sulfamethoxazole-trimethoprim [Bactrim DS] 800-160 mg tablet 1 tab PO BID 7 Days Qty: 14 0RF No Action atorvastatin 40 MG tablet 40 mg PO QHS Patient Comments: CHOLESTEROL LOWERING fenofibric acid (choline) [Trilipix] 135 MG capsule,delayed release(DR/EC) 135 mg PO DAILY Patient Comments: cholesterol levothyroxine 175 MCG tablet 200 mcg PO DAILY bumetanide 0.5 mg Tablet 0.5 mg PO DAILY insulin lispro [Humalog U-100 Insulin] 100 unit/mL Solution 12 unit SUBCUT BREAKFAST insulin lispro 100 unit/mL Solution 25 unit SUBCUT DINNER [place] BrowningoStar U-300 Insulin 300 unit/mL (1.5 mL) Insulin Pen 30 unit SUBCUT QHS acetaminophen 500 mg Tablet 1,000 mg PO Q6H PRN PRN (Reason: Pain Score 1-5) Qty: 0 0RF insulin lispro 100 unit/mL Insulin Pen 18 unit SUBCUT LUNCH Xarelto 15 mg tablet 20 mg PO DAILY Hold Instructions: Resume on 04/16/23. amiodarone 200 mg tablet 100 mg PO DAILY Patient Comments: TAKE 1 TABLET DAILY oxycodone 5 mg Tablet 5 mg PO Q4H PRN PRN (Reason: Pain Score 4-10) 3 Days Qty: 12 0RF insulin lispro [Humalog KwikPen Insulin] 100 unit/mL Insulin Pen See Protocol subcut 4X/DAYCM Qty: 0 0RF Protocol: 3. Sliding Scale Insulin Med Dosing Condition: 150-189 mg/dl = 1 unit Condition: 190-229 mg/dl = 2 units Condition: 230-269 mg/dl = 3 units Condition: 270-309 mg/dl = 4 units Condition: 310-349 mg/dl = 5 units Condition: 350-399 mg/dl = 6 units Condition: 400-449 mg/dl = 7 units Condition: Greater than 449 call physician Protocol Text: - Use for Total Daily Dose of Insulin 37-55 units - Obsese, infected, or steroid patients MEDIUM DOSING ALGORITHIM sennosides-docusate sodium [Stool Softener-Stimulant Laxat] 8.6-50 mg Tablet 2 tab PO BID PRN PRN (Reason: Constipation) Qty: 0 0RF doxycycline monohydrate 100 mg capsule 100 mg PO DAILY Qty: 30 0RF Primary Care Provider: Maggi Chicas Referrals: Maggi Chicas, [Primary Care Provider] - Activity Restrictions/Additional Instructions: Thank you for trusting us with your care today! Please take Tylenol (2 pills, 650 mg), ibuprofen (2 pills, 400 mg) every 6 hours as needed for pain and fever control. Please take antibiotics as prescribed. Please return to the emergency department if your symptoms change or worsen. Specifically if you notice black or blue discoloration of the involved extremity, pain is out of proportion, you cannot take antibiotic by mouth. If you develop nausea or vomiting. Please follow with your primary care physician for further outpatient evaluation and management. Disposition Disposition: Home, Self Care
--- NOTE | 2023-04-11 02:36 | RAD_ITS ---
INDICATION: leg pain EXAMINATION/TECHNIQUE: X-RAY - RIGHT XR Tibia/Fibula 2 Views COMPARISON: None. FINDINGS: 4 views of the right tib-fib. BONES: Normal anatomic alignment without evidence of fracture or subluxation. No concerning bony lesion or abnormal sclerosis to suggest lesion. JOINTS: Moderate lateral compartment and patellofemoral joint degenerative change. SOFT TISSUES: Dense atherosclerotic vascular calcifications. Numerous distal chronic soft tissue calcifications. RAD/Tibia & Fibula 2 Views IMPRESSION: No acute osseous abnormality of the right tib-fib. Electronically Signed: Dane You MD at 3:14 EDT ,
[2023-04-11 02:53] LABS: Absolute Lymphocyte Count 0.76 X10^3/uL (0.83-4.51); Basophil# 0.03 X10^3/uL; Basophil% 0.5 % (0-1); Eosinophil# 0.09 X10^3/uL; Eosinophils% 1.4 % (0-5); Hematocrit 30.2 % (37-47); Hemoglobin 9.2 g/dL (12.0-15.0); Lymphocyte # 0.76 X10^3/ul (0.83-4.51); Lymphocyte % 11.4 % (19-41); Mean Corp Hgb Conc 30.5 g/dL (32-36); Mean Corpuscular Hgb 28.8 pg (27.0-32.0); Mean Corpuscular Volume 94.4 fL (81-99); Mean Platelet Vol. 11.3 fl (6.2-12.0); Monocyte# 0.73 X10^3/uL; NRBC Flagged by Analyzer 0 % (0-5); Neutrophil # 5.01 X10^3/uL (2.7-7.7); Neutrophil % 75.1 % (47-70); Platelet Count 221 K/mm3 (150-450); RBC Distribution Width CV 15.7 % (11.6-14.6); White Blood Count 6.7 K/mm3 (4.4-11.0)
[2023-04-11 02:59] LABS: Erythrocyte Sedimentation Rate 36 mm/hr (0-30)
[2023-04-11 03:11] LABS: Anion Gap 6 (5-15); BUN 25 mg/dL (7-18); BUN/Creat Ratio 17.5 RATIO (10-20); Calcium,Total 8.5 mg/dL (8.5-10.1); Chloride 110 mmol/L (98-107); Creatinine, Serum 1.43 mg/dL (0.55-1.02); EST Glomerular Filtration Rate 38 mL/min (>60); Est Glom Filt Rate - Afr Amer 46 mL/min (>60); Estimated Creatinine Clearance 35.87 ml/min; Glucose 118 mg/dL (74-106); Potassium 3.8 mmol/L (3.5-5.1); Sodium Level 138 mmol/L (136-145)
[2023-04-11 03:52] VITALS: BP 150/58; PULSE 59; RESP 18; O2SAT 98
[2023-04-11] MEDS: Smz/Tmp Ds Tablet 1 TABLET PO (04:53)
[2023-04-11] MEDS: Cephalexin 250 MG Capsule 500 MG PO (04:53)
[2023-04-11 05:52] VITALS: BP 171/60; PULSE 63; RESP 20; O2SAT 99
--- NOTE | 2023-04-11 06:02 | NURSING ---
[facility], report given to Cristina. Daughter to transport patient back to [facility].
== END 2023-04-11 06:04 | disposition home or self-care (01) ==
PROVIDERS: Emergency Provider Emergency Medicine; Visit Provider Emergency Medicine
DX: L03.115 Cellulitis of right lower limb (principal); E11.22 Type 2 diabetes mellitus with diabetic chronic kidney disease; I48.0 Paroxysmal atrial fibrillation; Z79.4 Long term (current) use of insulin; N18.9 Chronic kidney disease, unspecified; I12.9 Hypertensive chronic kidney disease with stage 1 through stage 4 chronic kidney disease, or unspecified chronic kidney disease; Z87.891 Personal history of nicotine dependence; I25.10 Atherosclerotic heart disease of native coronary artery without angina pectoris; E03.9 Hypothyroidism, unspecified; Z79.899 Other long term (current) drug therapy; Z99.89 Dependence on other enabling machines and devices; Z79.01 Long term (current) use of anticoagulants; Z96.642 Presence of left artificial hip joint; Z95.1 Presence of aortocoronary bypass graft; Z90.49 Acquired absence of other specified parts of digestive tract
CPT/HCPCS: 99285; 73590; 80048; 85025; 85652; 86140; A4216

== ENCOUNTER 2023-04-11 17:10 | Inpatient (IN) | payer MEDICARE, SELFPAY ==
[2023-04-11 17:10] VITALS: BP 157/47; PULSE 72; RESP 20; TEMP 37.7; O2SAT 97
[2023-04-11 18:11] VITALS: BMI 47.0
--- NOTE | 2023-04-11 18:15 | EX.ED.DYSGE1 ---
HPI History of Present Illness Chief Complaint: Fever Narrative Narrative: 72-year-old female multiple medical problems presents from rehabilitation center with increasing right leg redness, low-grade fever, and pain in her right leg. Of note, she was seen in the emergency department early this morning, approximately 12 hours ago, where she wanted outpatient trial for cellulitis of her right lower extremity. She relates history that she had an injury in her daughter notes that they have x-rayed her leg twice including earlier this morning. She wanted to try the medications/antibiotics as an outpatient or orally. 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 She was given Bactrim and Keflex here in the emergency department and tolerated it for 30 minutes while she was here. Upon discharge, she began having nausea and vomiting, and fever that has been increasing throughout the day. PFSH [facility] Medical History Anxiety and depression Arthritis CAD (coronary artery disease) CPAP (continuous positive airway pressure) dependence DVT (deep venous thrombosis) History of stress incontinence Hx of necrotizing fasciitis Hypertension Hypothyroidism Insulin dependent diabetes mellitus PAF (paroxysmal atrial fibrillation) Restless legs Wears dentures Home Medications atorvastatin 40 mg tablet 40 mg PO QHS Cholesterol 09/07/14 [History Last Taken 04/06/23] fenofibric acid (choline) 135 mg capsule,delayed release (Trilipix) 135 mg PO DAILY Cholesterol 09/07/14 [History Last Taken 04/06/23] levothyroxine 175 mcg tablet 200 mcg PO DAILY Thyroid 04/12/20 [History Last Taken 04/06/23] bumetanide 0.5 mg tablet 0.5 mg PO DAILY BP 02/17/21 [History Last Taken 04/06/23] insulin glargine U-300 conc 300 unit/mL (1.5 mL) subcutaneous pen (Toujeo SoloStar U-300 Insulin) 30 unit subcut QHS Diabetes 02/17/21 [History Last Taken 04/06/23] insulin lispro 100 unit/mL subcutaneous solution 25 unit subcut DINNER Diabetes 02/17/21 [History Last Taken 04/06/23] insulin lispro 100 unit/mL subcutaneous solution (Humalog U-100 Insulin) 12 unit subcut BREAKFAST Diabetes 02/17/21 [History Last Taken 04/06/23] acetaminophen 500 mg tablet 1,000 mg (2 x 500 mg) PO Q6H PRN PRN Pain Score 1-5 #0 tabs 05/14/21 [Rx Last Taken 04/06/23] insulin lispro 100 unit/mL subcutaneous pen 18 unit subcut LUNCH diabetes 05/30/21 [History Last Taken 04/06/23] rivaroxaban 15 mg tablet (Xarelto) 20 mg PO DAILY blood thinner 05/30/21 [History Last Taken 04/06/23] amiodarone 200 mg tablet 100 mg PO DAILY hrt 11/12/21 [History Last Taken 04/06/23] doxycycline monohydrate 100 mg capsule 100 mg PO DAILY #30 caps 04/09/23 [Rx Last Taken Unknown] insulin lispro 100 unit/mL subcutaneous pen (Humalog KwikPen (U-100) Insulin) See Protocol subcut 4X/DAYCM #0 mL 04/09/23 [Rx Last Taken Unknown] oxycodone 5 mg tablet 5 mg PO Q4H PRN PRN Pain Score 4-10 3 days #12 tabs 04/09/23 [Rx Last Taken Unknown] sennosides 8.6 mg-docusate sodium 50 mg tablet (Stool Softener-Stimulant Laxative) 2 tab PO BID PRN PRN Constipation #0 tabs 04/09/23 [Rx Last Taken Unknown] cephalexin 500 mg tablet 500 mg PO Q8H 7 days #21 tabs 04/11/23 [Rx Last Taken Unknown] sulfamethoxazole 800 mg-trimethoprim 160 mg tablet (Bactrim DS) 1 tab PO BID 7 days #14 tabs 04/11/23 [Rx Last Taken Unknown] Allergy/AdvReac Type Severity Reaction Status Date / Time hydralazine HCl Allergy Other Verified 04/11/23 17:15 [From Apresoline] ondansetron [From Zofran] AdvReac Nausea Verified 04/11/23 17:15 Family History Mother Diabetes Heart disease Hypertension Father Diabetes Heart disease Hypertension Surgical History History of cardiac catheterization History of cardiac radiofrequency ablation History of hip replacement History of quadruple bypass History of total left hip replacement Hx of CABG Hx of cholecystectomy Hx of colonoscopy Hx of tubal ligation Social History household members: none housing: house number of children: 3 Smoking Status: Former smoker alcohol intake: never substance use type: does not use ROS ROS ED ROS Narrative Constitutional: No fever, no chills. HEENT: No sore throat. No neck pain. No loss of vision. No rhinorrhea. Cardiovascular: No chest pain. No palpitations. No pedal edema. Respiratory: No cough, no shortness of breath. Abdominal: No abdominal pain. No nausea. No vomiting. Genitourinary: No dysuria. No hematuria. Musculoskeletal: No myalgias. Right lower extremity pain and redness below the knee and at level of the knee. Neurologic: No headaches. No dizziness. No lightheadedness. Skin: No rash. Erythema to right lower extremity. There is a blister noted that has been there for the last few days. Psychiatric: No depression. No anxiety. EXAM Physical Exam Narrative Exam Narrative: Afebrile. Vital signs noted. Nontoxic-appearing. HEENT: Normocephalic. Atraumatic. PERRL, EOMI. Neck soft and supple. No point tenderness or step off. Cardiovascular: Regular rate and rhythm. No murmurs, rubs, or gallops appreciated. Respiratory: No tachypnea. Lungs clear to auscultation bilaterally. Gastrointestinal: Abdomen soft, nontender, with normoactive bowel sounds. No rebound or guarding. Neurological: Awake. Alert. Nonfocal, nonlateralizing. Skin: No rash. Positive erythema with bullae on skin. No crepitance. Appears neurovascular intact distally. Musculoskeletal: No pedal edema. Limited range of motion of right knee secondary to pain and swelling. Const Vital Signs: 04/11/23 17:10 04/11/23 18:35 Temperature 99.9 F H Temperature Source Oral Pulse Rate 72 Respiratory Rate 20 H Respiratory Effort Normal Non-Labored Blood Pressure 157/47 H Blood Pressure Mean 83 Pulse Ox 97 Oxygen Delivery Method Room Air MDM MDM MDM Narrative Medical decision making narrative: I reviewed the patient's prior ED visit from this morning. There is low concern for necrotizing fasciitis as she has been seen and evaluated in the emergency department previously, and additionally, daughter states that is not necessarily that much worse than 12 hours ago. She states that the bullae noted on examination or blister has been there for the last few days. My concern is that as she has had nausea and vomiting, she is unable to take her antibiotics. They were told to return for IV antibiotics if she did not tolerate her oral antibiotics. She will be started on vancomycin and Rocephin. I will obtain a lactic acid along with baseline laboratories. I do not feel that repeat imaging is indicated. Ultrasound is currently unavailable at this time. I reviewed the patient's laboratory work, she has a normal white count of 5.6, and it is actually down from previous this morning of 7. Hemoglobin stable at 8.6 with platelet count normal at 217. In review of her electrolyte panel she has a normal sodium of 137, potassium normal at 4.4 although she has been having a lot of vomiting. Chloride slightly elevated at 108 which I think is nonspecific. BUN is 25 and creatinine at her baseline of 1.43. Her glucose is appropriately elevated at 108 with a normal anion gap of 7. I have low concern for diabetic ketoacidosis with a normal anion gap. Lactic acid is normal at 0.8, and I have low suspicion for sepsis. However, I did obtain blood cultures prior to administration of Rocephin and vancomycin. She was administered Reglan for nausea and vomiting. Her lipase is normal so I do not feel that she has a pancreatitis causing her vomiting. As she has had her second visit within 24 hours I do feel that she merits at least observation for continued IV antibiotics, since she was unable to tolerate oral antibiotics at rehab. Patient will be discussed with Dr. Toshia Conroy. Disposition is full admission in stable condition to the medical surgical floor. History & Record Review Discussion w/independent historian: Patient and Family Additional record(s) reviewed:: Prior ED visit and Prior labs Lab Data Attestation: I reviewed the patient's lab results. Labs: Laboratory Results - last 24 hr 04/11/23 18:27 WBC 5.6 RBC 3.00 L Hgb 8.6 L Hct 28.0 L MCV 93.3 MCH 28.7 MCHC 30.7 L RDW Std Deviation 53.4 H RDW Coeff of Kevyn 15.8 H Plt Count 217 MPV 11.2 Immature Gran % (Auto) 0.400 Neut % (Auto) 86.8 H Lymph % (Auto) 3.1 L [place] % (Auto) 9.0 Eos % (Auto) 0.2 Baso % (Auto) 0.5 Absolute Neuts (auto) 4.8 Absolute Lymphs (auto) 0.17 L Nucleated RBC % 0 Differential Comment SCANNED Sodium 137 Potassium 4.4 Chloride 108 H Carbon Dioxide 22.0 Anion Gap 7 BUN 25 H Creatinine 1.43 H Estim Creat Clear Calc 35.87 Est GFR (MDRD) Af Amer 46 L Est GFR (MDRD) Non-Af 38 L BUN/Creatinine Ratio 17.5 Glucose 108 H Lactic Acid 0.8 Calcium 8.5 Total Bilirubin 1.70 H AST 32 ALT 24 Alkaline Phosphatase 76 Total Protein 6.3 L Albumin 2.5 L Globulin 3.8 Albumin/Globulin Ratio 0.7 L Lipase 13 Management Discussion w/another healthcare provider: Hospitalist Discharge Plan Dx/Rx/DC Orders Clinical Impression: Diabetes mellitus, Cellulitis, Failure of outpatient treatment, Nausea and vomiting, HTN (hypertension) Disposition Disposition: [facility]
[2023-04-11 18:37] LABS: Absolute Lymphocyte Count 0.17 X10^3/uL (0.83-4.51); Absolute Neutrophil Count 4.8 X10^3/uL (2.0-7.7); Basophil# 0.03 X10^3/uL; Basophil% 0.5 % (0-1); Eosinophil# 0.01 X10^3/uL; Eosinophils% 0.2 % (0-5); Hemoglobin 8.6 g/dL (12.0-15.0); Lymphocyte # 0.17 X10^3/ul (0.83-4.51); Lymphocyte % 3.1 % (19-41); Mean Corp Hgb Conc 30.7 g/dL (32-36); Mean Corpuscular Hgb 28.7 pg (27.0-32.0); Mean Corpuscular Volume 93.3 fL (81-99); Mean Platelet Vol. 11.2 fl (6.2-12.0); NRBC Flagged by Analyzer 0 % (0-5); Neutrophil # 4.82 X10^3/uL (2.7-7.7); Neutrophil % 86.8 % (47-70); POSITIVE DIFFERENTIAL YES; Platelet Count 217 K/mm3 (150-450); RBC Distribution Width CV 15.8 % (11.6-14.6); RBC Distribution Width SD 53.4 fl (35.1-43.9); White Blood Count 5.6 K/mm3 (4.4-11.0)
[2023-04-11 18:38] LABS: Differential Indicated SCAN CRITERIA MET
[2023-04-11 18:51] LABS: ALB/GLOB Ratio 0.7 RATIO (0.9-2.4); AST(SGOT) 32 U/L (15-37); Alanine Aminotransfer ALT/SGPT 24 U/L (13-56); Albumin, Serum 2.5 g/dL (3.2-5.0); Alkaline Phosphatase 76 U/L (45-117); Anion Gap 7 (5-15); BUN 25 mg/dL (7-18); BUN/Creat Ratio 17.5 RATIO (10-20); Calcium,Total 8.5 mg/dL (8.5-10.1); Chloride 108 mmol/L (98-107); Creatinine, Serum 1.43 mg/dL (0.55-1.02); EST Glomerular Filtration Rate 38 mL/min (>60); Est Glom Filt Rate - Afr Amer 46 mL/min (>60); Estimated Creatinine Clearance 35.87 ml/min; Globulin 3.8 g/dL (2.2-4.2); Glucose 108 mg/dL (74-106); Lipase 13 U/L (13-75); Potassium 4.4 mmol/L (3.5-5.1); Protein, Total 6.3 g/dL (6.4-8.2); Sodium Level 137 mmol/L (136-145)
[2023-04-11 18:57] LABS: Differential Comment SCANNED
[2023-04-11] MEDS: Metoclopramide 10 MG/2 ML Vial 5 MG IV (18:57)
[2023-04-11] MEDS: Ceftriaxone 1 GM/50 ML BAG IV (18:58)
[2023-04-11] MEDS: 0.9% Normal Saline 1,000 ML 150 ML IV (18:58)
[2023-04-11 19:06] LABS: Lactic Acid 0.8 mmol/L (0.4-1.9)
--- NOTE | 2023-04-11 20:29 | PCM.HP.STD ---
HPI - General General Date of Admission: 04/11/23 Date of Service: 04/11/23 Chief Complaint: RLE redness, worsening, recent attempt oral abx therapy w/ N/V, unable to tolerate. HPI Narrative The patient is a 72 y/o F w/ PMHx: Hypothyroidism, PAF on Xarelto, Morbid Obesity, RLS, HTN, HLD, CKD stage III unclear subtype, Hx VTE, Diabetes mellitus type II, KASANDRA not able to tolerate CPAP, CAD s/p CABG x 4, Hypothyroidism, recent discharge 04/09/2023 following admission for acute mechanical fall with right lower extremity traumatic lateral and anterior soft tissue hematoma on chronic anticoagulant therapy with acute blood loss anemia associated on chronic anemia as well as acute renal insufficiency on CKD stage III unclear subtype with unfortunately unsuccessful aspiration attempt with continued plan for conservative management with repeat CT prior to discharge noting hematoma 12.8 x 3.4 x 15.5 cm and hemoglobin dropping during prior admission down as low as 5.5 with PRBC administered now representing to the [facility] ED on 04/11/23 with history of increasing right lower extremity redness, low-grade fevers as well as increasing pain seen earlier in the morning in the ED for new onset cellulitis with discharge on Bactrim and Keflex unfortunately following her discharge she started to have nausea and emesis and onset of fevers unable to tolerate her oral regimen prompting ED return. She notes onset of blisters with serous fluid to the right lower extremity as well. She denies any significant lightheadedness or dizziness. Work-up in the ED included T99.9, heart rate 72, BP 157/47, respiratory rate 20, 97% on room air, CBC with WBC 5.6, hemoglobin 8.6, platelet 217 with lymphopenia, CMP with chloride 108, BUN/creatinine 25/1.43, glucose 108, lactic acid 0.8, T. bili 1.70 otherwise hepatic profile not marked appearing, lipase 13, blood culture x2 pending per ED. In the ED patient ministered IV vancomycin as well as IV Rocephin in addition to Reglan 5 mg IV x1 and maintenance IV fluids. [facility] Medical History Anxiety and depression Arthritis CAD (coronary artery disease) CPAP (continuous positive airway pressure) dependence DVT (deep venous thrombosis) History of stress incontinence Hx of necrotizing fasciitis Hypertension Hypothyroidism Insulin dependent diabetes mellitus PAF (paroxysmal atrial fibrillation) Restless legs Wears dentures Home Medications atorvastatin 40 mg tablet 40 mg PO QHS Cholesterol 09/07/14 [History Last Taken 04/06/23] fenofibric acid (choline) 135 mg capsule,delayed release (Trilipix) 135 mg PO DAILY Cholesterol 09/07/14 [History Last Taken 04/06/23] levothyroxine 175 mcg tablet 200 mcg PO DAILY Thyroid 04/12/20 [History Last Taken 04/06/23] bumetanide 0.5 mg tablet 0.5 mg PO DAILY BP 02/17/21 [History Last Taken 04/06/23] insulin glargine U-300 conc 300 unit/mL (1.5 mL) subcutaneous pen (Toujeo SoloStar U-300 Insulin) 30 unit subcut QHS Diabetes 02/17/21 [History Last Taken 04/06/23] insulin lispro 100 unit/mL subcutaneous solution 25 unit subcut DINNER Diabetes 02/17/21 [History Last Taken 04/06/23] insulin lispro 100 unit/mL subcutaneous solution (Humalog U-100 Insulin) 12 unit subcut BREAKFAST Diabetes 02/17/21 [History Last Taken 04/06/23] acetaminophen 500 mg tablet 1,000 mg (2 x 500 mg) PO Q6H PRN PRN Pain Score 1-5 #0 tabs 05/14/21 [Rx Last Taken 04/06/23] insulin lispro 100 unit/mL subcutaneous pen 18 unit subcut LUNCH diabetes 05/30/21 [History Last Taken 04/06/23] rivaroxaban 15 mg tablet (Xarelto) 20 mg PO DAILY blood thinner 05/30/21 [History Last Taken 04/06/23] amiodarone 200 mg tablet 100 mg PO DAILY hrt 11/12/21 [History Last Taken 04/06/23] doxycycline monohydrate 100 mg capsule 100 mg PO DAILY cellulitis #30 caps 04/09/23 [Rx Last Taken Unknown] insulin lispro 100 unit/mL subcutaneous pen (Humalog KwikPen (U-100) Insulin) See Protocol subcut 4X/DAYCM dm #0 mL 04/09/23 [Rx Last Taken Unknown] oxycodone 5 mg tablet 5 mg PO Q4H PRN PRN Pain Score 4-10 3 days #12 tabs 04/09/23 [Rx Last Taken Unknown] sennosides 8.6 mg-docusate sodium 50 mg tablet (Stool Softener-Stimulant Laxative) 2 tab PO BID PRN PRN Constipation #0 tabs 04/09/23 [Rx Last Taken Unknown] cephalexin 500 mg tablet 500 mg PO Q8H cellulitis 7 days #21 tabs 04/11/23 [Rx Last Taken Unknown] lisinopril 10 mg tablet 10 mg PO DAILY bp 04/11/23 [History Last Taken Unknown] ofloxacin 0.3 % eye drops 1 drp ophthalmic (eye) Q6H eye 04/11/23 [History Last Taken Unknown] prednisolone acetate 1 % eye drops,suspension 1 drp ophthalmic (eye) BID eye 04/11/23 [History Last Taken Unknown] sodium chloride 5 % eye drops 1 drp ophthalmic (eye) BID eye 04/11/23 [History Last Taken Unknown] sulfamethoxazole 800 mg-trimethoprim 160 mg tablet (Bactrim DS) 1 tab PO BID cellulitis 7 days #14 tabs 04/11/23 [Rx Last Taken Unknown] Allergy/AdvReac Type Severity Reaction Status Date / Time hydralazine HCl Allergy Other Verified 04/11/23 17:15 [From Apresoline] ondansetron [From Zofran] AdvReac Nausea Verified 04/11/23 17:15 Family History Mother Diabetes Heart disease Hypertension Father Diabetes Heart disease Hypertension Surgical History History of cardiac catheterization History of cardiac radiofrequency ablation History of hip replacement History of quadruple bypass History of total left hip replacement Hx of CABG Hx of cholecystectomy Hx of colonoscopy Hx of tubal ligation Social History household members: none housing: house number of children: 3 Smoking Status: Former smoker alcohol intake: never substance use type: does not use ROS ROS Narrative Admission Review of Systems: CONSTITUTIONAL: No weight loss, + fever, chills, weakness or fatigue. HEENT: Eyes: No visual loss, blurred vision, double vision or yellow sclerae. Ears, Nose, Throat: No hearing loss, sneezing, congestion, runny nose or sore throat. SKIN: + Recent fall with right knee ecchymotic change, staged as well as significant erythema around this region as well as stasis blisters and ballotable nature. CARDIOVASCULAR: No chest pain, chest pressure or chest discomfort, palpitations, edema, orthopnea, syncopal events. RESPIRATORY: + Chronic shortness of breath, No cough or sputum, wheezing, hemoptysis. GASTROINTESTINAL: + anorexia, nausea, vomiting. No diarrhea, abdominal pain, melena, BRBPR. GENITOURINARY: No dysuria, frequency, urgency or retention. NEUROLOGICAL: + headache. No dizziness, syncope, paralysis, ataxia, numbness or tingling in the extremities, focal weakness, change in bowel or bladder control, seizure. MUSCULOSKELETAL: + muscle, back pain, joint pain or stiffness. HEMATOLOGIC: + anemia, bleeding or bruising. LYMPHATICS: No enlarged nodes. No history of splenectomy. PSYCHIATRIC: + history of depression or anxiety. ENDOCRINOLOGIC: No reports of sweating, cold or heat intolerance. No polyuria or polydipsia. ALLERGIES: No history of asthma, hives, eczema or rhinitis. Vital Signs Vital Signs Vital Signs: 04/11/23 17:10 04/11/23 18:35 Temperature 99.9 F H Temperature Source Oral Pulse Rate 72 Respiratory Rate 20 H Respiratory Effort Normal Non-Labored Blood Pressure 157/47 H Blood Pressure Mean 83 Pulse Ox 97 Oxygen Delivery Method Room Air Weight Weight: 309 lb 11.991 oz Body Mass Index (BMI) 47.0 Physical Exam Narrative Physical Examination: General: Awake, alert, oriented x 3 and cooperative, seated upright in the bed, fatigued and ill-appearing, currently pain to the right lower extremity 4-5 out of 10, worse with palpation or any movement attempts Skin: Normal color, normal turgor, no icterus, no cyanosis except staged ecchymoses given recent fall with significant overlying erythema, increased warmth and stasis ulcerations with serous fluid in addition to the extremity around the area of the hematoma being extremely ballotable HEENT: AT/NC, EOMI, PERRLA, dry MM, no carotid bruits or JVD noted; however thickened neck makes evaluation difficult. Lungs: Distant, possibly secondary to habitus, greater bases, appropriate effort, no rales, ronchi or wheezing. Heart: Bradycardic with regular rhythm; no gallop, rub audible. Abdomen: Soft, morbidly obese, NTTP, no obvious distention or HSM however habitus makes evaluation difficult, distant BS. Extremities: No cyanosis, no clubbing, significant right lower extremity swelling status post recent fall with hematoma with staged ecchymotic change, significant overlying erythema and increased warmth as well as stasis ulcerations with serous fluid with significant blot ability of several of the regions. Neurological: Patient awake, alert, oriented as noted, cognitive function intact; pupils equally reactive to light and accommodation, cranial nerves II-XII grossly normal, moving all 4 extremities except extremely limited right lower extremity given acute presentation as noted, strength accordingly severely globally decreased. Psychiatric: Affect appears fatigued, ill-appearing, uncomfortable, no acute evidence of depressive or anxiety feelings but does have underlying history. Results Lab / Micro Data 04/11/23 18:27 04/11/23 18:27 Labs: Laboratory Results - last 24 hr 04/11/23 18:27: WBC 5.6, RBC 3.00 L, Hgb 8.6 L, Hct 28.0 L, MCV 93.3, MCH 28.7, MCHC 30.7 L, RDW Std Deviation 53.4 H, RDW Coeff of Kevyn 15.8 H, Plt Count 217, MPV 11.2, Immature Gran % (Auto) 0.400, Neut % (Auto) 86.8 H, Lymph % (Auto) 3.1 L, [place] % (Auto) 9.0, Eos % (Auto) 0.2, Baso % (Auto) 0.5, Absolute Neuts (auto) 4.8, Absolute Lymphs (auto) 0.17 L, Nucleated RBC % 0, Differential Comment SCANNED, Sodium 137, Potassium 4.4, Chloride 108 H, Carbon Dioxide 22.0, Anion Gap 7, BUN 25 H, Creatinine 1.43 H, Estim Creat Clear Calc 35.87, Est GFR (MDRD) Af Amer 46 L, Est GFR (MDRD) Non-Af 38 L, BUN/Creatinine Ratio 17.5, Glucose 108 H, Lactic Acid 0.8, Calcium 8.5, Total Bilirubin 1.70 H, AST 32, ALT 24, Alkaline Phosphatase 76, Total Protein 6.3 L, Albumin 2.5 L, Globulin 3.8, Albumin/Globulin Ratio 0.7 L, Lipase 13 Assessment & Plan Assessment/Plan (1) Cellulitis: (2) Failure of outpatient treatment: PLAN: Plan The patient is a 72 y/o F w/ PMHx: Hypothyroidism, PAF on Xarelto, Morbid Obesity, RLS, HTN, HLD, CKD stage III unclear subtype, Hx VTE, Diabetes mellitus type II, KASANDRA not able to tolerate CPAP, CAD s/p CABG x 4, Hypothyroidism, recent discharge 04/09/2023 following admission for acute mechanical fall with right lower extremity traumatic lateral and anterior soft tissue hematoma on chronic anticoagulant therapy with acute blood loss anemia associated on chronic anemia as well as acute renal insufficiency on CKD stage III unclear subtype with unfortunately unsuccessful aspiration attempt with continued plan for conservative management with repeat CT prior to discharge noting hematoma 12.8 x 3.4 x 15.5 cm and hemoglobin dropping during prior admission down as low as 5.5 with PRBC administered now representing to the [facility] ED on 04/11/23 with history of increasing right lower extremity redness, low-grade fevers as well as increasing pain seen earlier in the morning in the ED for new onset cellulitis with discharge on Bactrim and Keflex unfortunately following her discharge she started to have nausea and emesis and onset of fevers unable to tolerate her oral regimen prompting ED return. #1. Recent Acute mechanical fall with right lower extremity traumatic lateral and anterior soft tissue hematoma on chronic anticoagulant therapy with associated #2 now with concurrent Acute right lower extremity overlaying cellulitis, concern for infected hematoma, failed outpatient abx therapy: We will admit to medical surgical floor, maintain on IV vancomycin and Zosyn given recent admission as well as history, will reconsult orthopedic surgery as certainly part of this could be an infected hematoma component, if able to attempt any kind of intervention would obtain wound culture and wound MRSA PCR for antibiotic alteration/de-escalation of able, will trend CBC, continue affected extremity elevation, monitor erythema, given recent history of hold on her Xarelto certainly a risk for DVT therefore will request duplex ultrasound, maintain on fall precautions, as needed pain regimen as well as antiemetic regimen, PT/OT/case management consultation for discharge planning. CRP and ESR pending also. #2. Recent Acute Blood Loss Anemia secondary to #1 on Chronic normocytic anemia: Patient is now representing with hemoglobin 8.6, had drop during prior admission down to 5.5 with PRBC administered at that time, will continue to hold Xarelto regimen, trend CBC. #3. CKD stage III unclear subtype type: Admission BUN/creatinine 25/1.43, baseline creatinine noted prior 0.8-1.4, improved from most recent initial presentation and she had been 1.8 at that time, will continue to monitor. #4. PAF: We will continue hold patient home Xarelto regimen, will continue patient home amiodarone. #5. Hypertension: We will continue patient home bumetanide regimen. #6. Hyperlipidemia: We will temporally hold home fenofibric acid therapy. #7. Hypothyroidism: We will continue patient home levothyroxine regimen. #8. Diabetes mellitus type II: Hold oral home regimen, continue home insulin regimen, ADA diet, accu checks w/ ISS. #9. KASANDRA: Patient from discussion is unable to tolerate CPAP, encouraged her to continue outpatient follow-up for other modalities. #10. CAD: Status post CABG x4, will continue statin, not on beta-brandon or LAUREL inhibitor/ARB possibly secondary to underlying renal disease and bradycardia noted upon presentation, on amiodarone for PAF of note. Continuing to hold patient anticoagulant therapy given recent acute hematoma #11. Morbid Obesity: Weight loss and lifestyle changes encouraged. #12. DVT prophylaxis: SCDs. #13. 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 Full code. Charges/Coding Visit Charges Inpatient E&M: 45797 Init Hosp L3
[2023-04-11 20:30] VITALS: BP 161/46; PULSE 63; RESP 18; TEMP 37.3; O2SAT 97
--- NOTE | 2023-04-11 20:41 | VDLE_ITS ---
Reason For Study: Right leg pain RIGHT GSV is normal. CFV is compressible, spontaneous, phasic, competent and demonstrates normal augmentation. FV appears patent, visualized with color only. Normal venous flow with augmentation. POP V is compressible, spontaneous, phasic, competent and demonstrates normal augmentation. T/P Trunk is compressible. PTV is compressible. RT PerV is compressible. Procedure This is a venous duplex using B-mode, color flow and spectral Doppler. Exam performed portable in patient room. Patient unable to tolerate compressions in thigh and proximal calf. A preliminary report was called and/or faxed to superintendent stations. VL/Venous Duplex US, Unilateral Interpretation Summary There is no evidence of right lower extremity deep vein thrombosis. Right great saphenous vein appears patent and compressible segmentally. Note the limitations that the ventura ent was unable to tolerate compression in the right thigh and proximal calf so color-flow was uti lized. Ordering Physician: Toshia Conryo Referring Physician: Maggi Chicas Performed By: Tammy Hall RVT
[2023-04-11 21:21] LABS: Erythrocyte Sedimentation Rate 38 mm/hr (0-30)
[2023-04-11 21:36] VITALS: BMI 46.4
[2023-04-11 22:31] VITALS: BP 108/47; PULSE 63; RESP 18; TEMP 37.3; O2SAT 97
[2023-04-11] MEDS: 0.9% Normal Saline 1,000 ML 100 ML IV (22:47)
[2023-04-11] MEDS: oxyCODONE 5 MG Tablet PO (22:48)
[2023-04-11] MEDS: MELATONIN 3 MG TABLET PO (22:48)
[2023-04-11] MEDS: Acetaminophen 325 MG Tablet 650 MG PO (22:48)
[2023-04-11] MEDS: Atorvastatin Calcium 40 MG Tablet PO (22:49)
[2023-04-11 23:23] LABS: Bedside Glucose 145 mg/dL (74-106)
[2023-04-12] VITALS (7 sets, daily range): BP systolic 102–128; BP diastolic 49–58; PULSE 53–60; RESP 16–18; TEMP 36.4–37.1; O2SAT 94–100
[2023-04-12] MEDS: Nystatin Powder 15gm Bottle 1 APPLIC TOPICAL ×3 (00:05→22:02)
[2023-04-12] MEDS: Menthol/Lanolin/Calamine/Znox 113 GM Tube 1 APPLIC TOPICAL ×3 (00:05→22:02)
--- NOTE | 2023-04-12 02:53 | PCM.RX.CS ---
Consult Antibiotic Management Pharmacy has been consulted to manage selected antiobiotic: Vancomycin Type of Intervention Type of Consult: New start Suspected Infection Suspected Infection: Skin/Soft tissue Labs Labs: Sodium 137 mmol/L (136-145) 04/11/23 18:27 Potassium 4.4 mmol/L (3.5-5.1) 04/11/23 18:27 Chloride 108 mmol/L (98-107) H 04/11/23 18:27 Carbon Dioxide 22.0 mmol/L (21.0-32.0) 04/11/23 18:27 Anion Gap 7 (5-15) 04/11/23 18:27 BUN 25 mg/dL (7-18) H 04/11/23 18:27 Creatinine 1.43 mg/dL (0.55-1.02) H 04/11/23 18:27 Est GFR (MDRD) Af Amer 46 mL/min (>60) L 04/11/23 18:27 Est GFR (MDRD) Non-Af 38 mL/min (>60) L 04/11/23 18:27 BUN/Creatinine Ratio 17.5 RATIO (10-20) 04/11/23 18:27 Glucose 108 mg/dL (74-106) H 04/11/23 18:27 Dosing Weight Weight used for dosin.5 kg Estimated Creatinine Clearance Estimated Creatinine Clearance: 52.5 Pharmacy Plan for Drug Dosing Pharmacy Plan for Drug Dosing: Pharmacy Service will continue to monitor and adjust dosing as required. Follow-Up Labs Follow-Up Labs: Trough: Vancomycin Date/Time Labs Ordered Labs to be done on [date and time ordered]: 04/13 @ 8260
[2023-04-12] MEDS: Levothyroxine 100 MCG Tablet 200 MCG PO (05:20)
[2023-04-12 06:19] LABS: Absolute Lymphocyte Count 0.24 X10^3/uL (0.83-4.51); Absolute Neutrophil Count 2.8 X10^3/uL (2.0-7.7); Basophil# 0.03 X10^3/uL; Basophil% 0.9 % (0-1); Eosinophil# 0.03 X10^3/uL; Eosinophils% 0.9 % (0-5); Hematocrit 27.4 % (37-47); Hemoglobin 8.3 g/dL (12.0-15.0); Lymphocyte # 0.24 X10^3/ul (0.83-4.51); Lymphocyte % 6.8 % (19-41); Mean Corp Hgb Conc 30.3 g/dL (32-36); Mean Corpuscular Hgb 28.8 pg (27.0-32.0); Mean Corpuscular Volume 95.1 fL (81-99); Mean Platelet Vol. 11.5 fl (6.2-12.0); Monocyte# 0.36 X10^3/uL; Monocyte% 10.2 % (0-10); NRBC Flagged by Analyzer 0 % (0-5); Neutrophil # 2.84 X10^3/uL (2.7-7.7); Neutrophil % 80.6 % (47-70); POSITIVE DIFFERENTIAL YES; Platelet Count 191 K/mm3 (150-450); RBC Distribution Width CV 15.8 % (11.6-14.6); RBC Distribution Width SD 54.7 fl (35.1-43.9); Red Blood Count 2.88 M/mm3 (4.2-5.4); White Blood Count 3.5 K/mm3 (4.4-11.0)
[2023-04-12 06:23] LABS: Bedside Glucose 136 mg/dL (74-106)
[2023-04-12 06:50] LABS: ALB/GLOB Ratio 0.7 RATIO (0.9-2.4); AST(SGOT) 28 U/L (15-37); Alanine Aminotransfer ALT/SGPT 21 U/L (13-56); Albumin, Serum 2.3 g/dL (3.2-5.0); Alkaline Phosphatase 71 U/L (45-117); Anion Gap 5 (5-15); BUN 25 mg/dL (7-18); BUN/Creat Ratio 17.9 RATIO (10-20); Calcium,Total 8.1 mg/dL (8.5-10.1); Chloride 110 mmol/L (98-107); EST Glomerular Filtration Rate 39 mL/min (>60); Est Glom Filt Rate - Afr Amer 48 mL/min (>60); Estimated Creatinine Clearance 36.64 ml/min; Globulin 3.5 g/dL (2.2-4.2); Glucose 156 mg/dL (74-106); Potassium 3.8 mmol/L (3.5-5.1); Protein, Total 5.8 g/dL (6.4-8.2); Sodium Level 136 mmol/L (136-145)
[2023-04-12 06:54] LABS: Differential Indicated SCAN CRITERIA MET
[2023-04-12 07:23] LABS: Differential Comment SCANNED
[2023-04-12] MEDS: Amiodarone 200 MG Tablet 100 MG PO (08:09)
[2023-04-12] MEDS: Insulin Lispro 100 UNIT/ML INSULN.PEN 12 UNIT SC (08:09)
--- NOTE | 2023-04-12 10:29 | CASEMGMT ---
Social Work SW met with pt who is know to this SW from previous visit. Pt was discharged on Wednesday to [facility]. Pt readmitted on Wednesday. Pt stating that she would prefer to go to TCU at discharge. Phone call to [facility] in TCU and no beds available until 04/16 at the earliest. SW met with pt and updated and a list of SNF providers including quality and resource use data and consistent with the patient?s preferred geographic region, medical needs, and insurance network were provided from [facility]. Pt updated that TCU does not have beds available at this time and requested other options. Pt and dgts will review the list and let SW know of choice. Plan: SNF, pending choice and [facility]IKI Hui
--- NOTE | 2023-04-12 10:56 | CASEMGMT ---
Discharge Planning SNF list created and sent to SW. Josie Rubin, Discharge Planning Asst.
[2023-04-12 11:53] LABS: Bedside Glucose 275 mg/dL (74-106)
--- NOTE | 2023-04-12 12:11 | EKG12_ITS ---
Test Reason : PRE OP Blood Pressure : / mmHG Vent. Rate : 057 BPM Atrial Rate : 056 BPM P-R Int : 000 ms QRS Dur : 116 ms QT Int : 484 ms P-R-T Axes : 000 -60 075 degrees QTc Int : 471 ms Junctional rhythm Left axis deviation Septal infarct (cited on or before 12-NOV-2021) Abnormal ECG Confirmed by RJ MARINELLI, BERYL ([id number]), design editor ANITA LOYD ([id number]) on 04/20/2023 7:26:38 AM Referred By: NAYELY Confirmed By:BERYL DE LA ROSA MD
--- NOTE | 2023-04-12 12:20 | RAD_ITS ---
INDICATION: sob EXAMINATION/TECHNIQUE: X-RAY - XR Chest 1 View COMPARISON: FINDINGS: LINES/DEVICES: None. LUNGS: No consolidation, edema or effusion. No pneumothorax. MEDIASTINUM AND CARDIOVASCULAR STRUCTURES: Cardiac silhouette is enlarged. Central airways and mediastinal contour are unremarkable. BONES AND SOFT TISSUES: Unremarkable. RAD/Chest 1 View IMPRESSION: Cardiomegaly. Otherwise no radiographic evidence of acute cardiopulmonary disease. Electronically Signed: Michael Solis, at 12:48 EDT ,
--- NOTE | 2023-04-12 12:34 | PCM.CONS.GEN ---
Assessment & Plan Assessment/Plan (1) Hematoma of right knee region: (2) Cellulitis of right lower extremity: PLAN: Plan Large right knee hematoma in the setting of over overlying cellulitis now. Concern for developing infected hematoma. Discussed with patient and family evacuation of hematoma and primary closure versus wound VAC placement. Patient and family wish to proceed with this there are significant risk considering her multiple medical comorbidities for wound healing complications. She is on IV antibiotics and will likely need to continue antibiotics for several weeks. Plan for OR 04/13/2023. Consent was signed and placed in the chart. She has been off the Xarelto since 04/05/23. HPI Consult Data Date of Consult: 04/12/23 HPI Narrative HPI Narrative: MADAN CARRION, is a 72 F with history of MRSA who developed a large hematoma on her right knee 04/06/2023 after being on Xarelto and sustaining a ground-level fall. I initially saw her upon her initial presentation on 04/07/2023 at which time an aspiration was attempted unsuccessfully. She has chronic lower extremity venous stasis dermatitis brawny edema she is morbidly overweight she has subsequently developed cellulitis in the right lower extremity which is spread to her knee. She is also developed a fracture blister over the hematoma area. She did have [address] scans which showed no change in size of the hematoma. [facility] Medical History Anxiety and depression Arthritis CAD (coronary artery disease) CPAP (continuous positive airway pressure) dependence DVT (deep venous thrombosis) History of stress incontinence Hx of necrotizing fasciitis Hypertension Hypothyroidism Insulin dependent diabetes mellitus PAF (paroxysmal atrial fibrillation) Restless legs Wears dentures Home Medications atorvastatin 40 mg tablet 40 mg PO QHS Cholesterol 09/07/14 [History Last Taken 04/06/23] fenofibric acid (choline) 135 mg capsule,delayed release (Trilipix) 135 mg PO DAILY Cholesterol 09/07/14 [History Last Taken 04/06/23] levothyroxine 175 mcg tablet 200 mcg PO DAILY Thyroid 04/12/20 [History Last Taken 04/06/23] bumetanide 0.5 mg tablet 0.5 mg PO DAILY BP 02/17/21 [History Last Taken 04/06/23] insulin glargine U-300 conc 300 unit/mL (1.5 mL) subcutaneous pen (Toujeo SoloStar U-300 Insulin) 30 unit subcut QHS Diabetes 02/17/21 [History Last Taken 04/06/23] insulin lispro 100 unit/mL subcutaneous solution 25 unit subcut DINNER Diabetes 02/17/21 [History Last Taken 04/06/23] insulin lispro 100 unit/mL subcutaneous solution (Humalog U-100 Insulin) 12 unit subcut BREAKFAST Diabetes 02/17/21 [History Last Taken 04/06/23] acetaminophen 500 mg tablet 1,000 mg (2 x 500 mg) PO Q6H PRN PRN Pain Score 1-5 #0 tabs 05/14/21 [Rx Last Taken 04/06/23] insulin lispro 100 unit/mL subcutaneous pen 18 unit subcut LUNCH diabetes 05/30/21 [History Last Taken 04/06/23] rivaroxaban 15 mg tablet (Xarelto) 20 mg PO DAILY blood thinner 05/30/21 [History Last Taken 04/06/23] amiodarone 200 mg tablet 100 mg PO DAILY hrt 11/12/21 [History Last Taken 04/06/23] doxycycline monohydrate 100 mg capsule 100 mg PO DAILY cellulitis #30 caps 04/09/23 [Rx Last Taken Unknown] insulin lispro 100 unit/mL subcutaneous pen (Humalog KwikPen (U-100) Insulin) See Protocol subcut 4X/DAYCM dm #0 mL 04/09/23 [Rx Last Taken Unknown] oxycodone 5 mg tablet 5 mg PO Q4H PRN PRN Pain Score 4-10 3 days #12 tabs 04/09/23 [Rx Last Taken Unknown] sennosides 8.6 mg-docusate sodium 50 mg tablet (Stool Softener-Stimulant Laxative) 2 tab PO BID PRN PRN Constipation #0 tabs 04/09/23 [Rx Last Taken Unknown] cephalexin 500 mg tablet 500 mg PO Q8H cellulitis 7 days #21 tabs 04/11/23 [Rx Last Taken Unknown] lisinopril 10 mg tablet 10 mg PO DAILY bp 04/11/23 [History Last Taken Unknown] ofloxacin 0.3 % eye drops 1 drp ophthalmic (eye) Q6H eye 04/11/23 [History Last Taken Unknown] prednisolone acetate 1 % eye drops,suspension 1 drp ophthalmic (eye) BID eye 04/11/23 [History Last Taken Unknown] sodium chloride 5 % eye drops 1 drp ophthalmic (eye) BID eye 04/11/23 [History Last Taken Unknown] sulfamethoxazole 800 mg-trimethoprim 160 mg tablet (Bactrim DS) 1 tab PO BID cellulitis 7 days #14 tabs 04/11/23 [Rx Last Taken Unknown] Allergy/AdvReac Type Severity Reaction Status Date / Time hydralazine HCl Allergy Other Verified 04/11/23 17:15 [From Apresoline] ondansetron [From Zofran] AdvReac Nausea Verified 04/11/23 17:15 Family History Mother Diabetes Heart disease Hypertension Father Diabetes Heart disease Hypertension Surgical History History of cardiac catheterization History of cardiac radiofrequency ablation History of hip replacement History of quadruple bypass History of total left hip replacement Hx of CABG Hx of cholecystectomy Hx of colonoscopy Hx of tubal ligation Social History household members: none housing: house number of children: 3 Smoking Status: Former smoker alcohol intake: never substance use type: does not use Physical Exam Const alert, oriented x3 and no apparent distress Extremity Extremity Narrative: Right knee morbidly obese chronic dermatitis and brawny edema in the lower leg cellulitis low intensity presents about the knee and lower extremity. There is a fracture blister noted over the medial upper leg. No sign of purulence. Compartments are soft. Extensor mechanism intact. Lab / Micro Data 04/12/23 05:35 04/12/23 05:35 Labs: Laboratory Results - last 24 hr 04/11/23 18:27: WBC 5.6, RBC 3.00 L, Hgb 8.6 L, Hct 28.0 L, MCV 93.3, MCH 28.7, MCHC 30.7 L, RDW Std Deviation 53.4 H, RDW Coeff of Kevyn 15.8 H, Plt Count 217, MPV 11.2, Immature Gran % (Auto) 0.400, Neut % (Auto) 86.8 H, Lymph % (Auto) 3.1 L, [place] % (Auto) 9.0, Eos % (Auto) 0.2, Baso % (Auto) 0.5, Absolute Neuts (auto) 4.8, Absolute Lymphs (auto) 0.17 L, Nucleated RBC % 0, Differential Comment SCANNED, ESR 38 H, Sodium 137, Potassium 4.4, Chloride 108 H, Carbon Dioxide 22.0, Anion Gap 7, BUN 25 H, Creatinine 1.43 H, Estim Creat Clear Calc 35.87, Est GFR (MDRD) Af Amer 46 L, Est GFR (MDRD) Non-Af 38 L, BUN/Creatinine Ratio 17.5, Glucose 108 H, Lactic Acid 0.8, Calcium 8.5, Total Bilirubin 1.70 H, AST 32, ALT 24, Alkaline Phosphatase 76, C-React Prot Ext Range 106.00 H, Total Protein 6.3 L, Albumin 2.5 L, Globulin 3.8, Albumin/Globulin Ratio 0.7 L, Lipase 13 04/11/23 22:59: POC Glucose 145 H 04/12/23 05:35: WBC 3.5 L, RBC 2.88 L, Hgb 8.3 L, Hct 27.4 L, MCV 95.1, MCH 28.8, MCHC 30.3 L, RDW Std Deviation 54.7 H, RDW Coeff of Kevyn 15.8 H, Plt Count 191, MPV 11.5, Immature Gran % (Auto) 0.600, Neut % (Auto) 80.6 H, Lymph % (Auto) 6.8 L, [place] % (Auto) 10.2 H, Eos % (Auto) 0.9, Baso % (Auto) 0.9, Absolute Neuts (auto) 2.8, Absolute Lymphs (auto) 0.24 L, Nucleated RBC % 0, Differential Comment SCANNED, Diff Path Review January, Sodium 136, Potassium 3.8, Chloride 110 H, Carbon Dioxide 21.0, Anion Gap 5, BUN 25 H, Creatinine 1.40 H, Estim Creat Clear Calc 36.64, Est GFR (MDRD) Af Amer 48 L, Est GFR (MDRD) Non-Af 39 L, BUN/Creatinine Ratio 17.9, Glucose 156 H, Calcium 8.1 L, Total Bilirubin 1.30 H, AST 28, ALT 21, Alkaline Phosphatase 71, Total Protein 5.8 L, Albumin 2.3 L, Globulin 3.5, Albumin/Globulin Ratio 0.7 L 04/12/23 06:04: POC Glucose 136 H 04/12/23 11:34: POC Glucose 275 H Radiology Impression Venous Doppler Study 04/11/23 20:41 Interpretation Summary There is no evidence of right lower extremity deep vein thrombosis. Right great saphenous vein appears patent and compressible segmentally. Note the limitations that the patient was unable to tolerate compression in the right thigh and proximal calf so color-flow was utilized. Ordering Physician: Toshia Conroy Referring Physician: Maggi Chicas Performed By: Tammy Hall RVT
[2023-04-12] MEDS: Insulin Lispro 100 UNIT/ML INSULN.PEN 18 UNIT SC (12:46)
[2023-04-12] MEDS: Insulin Lispro 100 UNIT/ML INSULN.PEN SC ×2 (12:46→17:17)
[2023-04-12] MEDS: Acetaminophen 325 MG Tablet 650 MG PO ×2 (13:44→22:19)
--- NOTE | 2023-04-12 15:05 | CASEMGMT ---
Social Work SW followed up with pt regarding SNF choice. Pt requesting to return to [facility] at time of discharge if TCU continues to not have a bed available. DC assistant plant controller updated and will notify [facility] Plan: [facility], precert will be needed but has not been started at this time CHIKI Goodman
--- NOTE | 2023-04-12 15:13 | CASEMGMT ---
Discharge Planning Patient wishes to return to [facility]. Updates sent via [employer]. Josie Rubin, Discharge Planning Asst.
--- NOTE | 2023-04-12 15:35 | PN.HOSP_ITS ---
Reason for Visit Reason for Visit: Worsening redness right lower extremity/nausea/vomiting and unable to tolerate oral antibiotics Subjective Subjective Mrs. Rodriguez is a 72-year-old white female who presented to emergency department at [facility] on 04/11/2023 with worsening right lower extremity redness and inability to tolerate outpatient oral antibiotics due to nausea and vomiting. Patient had a recent admission here from 04/06/2023 through 04/09/2023 after sustaining an acute mechanical fall that resulted in traumatic right lower extremity hematoma. The patient had been on chronic anticoagulation with Eliquis and had a significant hematoma on CT that was noted to be 12.8 x 3.4 x 5.5 cm. She had a hemoglobin drop as low as 5.5 during her previous follow-up hospitalization required 2 units of packed red blood cells. After this her hemoglobin stabilized and she was able to be discharged home. She was seen by orthopedic surgery during the hospitalization and no surgical intervention was pursued at that time. However, early in the morning on 04/11/2023 the patient read presented to the emergency department due to increasing pain and redness in the right lower extremities and she was discharged on Bactrim and Keflex. Unfortunately, the patient started having nausea and vomiting and the onset of fevers and was unable to tolerate her oral regimen at home and return to the emergency department. She noted the onset of new blisters with serous fluid draining from them in the right lower extremity as well. Vital signs on pr esentation demonstrated a T99.9, heart rate 72, BP 157/47, respiratory rate 20, 97% on room air, CBC with WBC 5.6, hemoglobin 8.6, platelet 217 with lymphopenia, CMP with chloride 108, BUN/creatinine 25/1.43, glucose 108, lactic acid 0.8, T. bili 1.70 otherwise hepatic profile was unremarkable. Blood cultures were obtained and she was started on IV vancomycin and Rocephin and was given Reglan as well as maintenance fluid. She was admitted to the medical floor and maintained on broad-spectrum antibiotics with vancomycin and Zosyn and orthopedic surgery was consulted. She reports this morning her pain is a bit improved and feels that her erythema is no longer spreading. She was evaluated by orthopedic surgery and plan is for surgical intervention tomorrow due to concern for developing infected hematoma. Objective Data Objective Data Vital Signs: Vital Signs Temp Pulse Resp BP Pulse Ox O2 Del Method 98.1 F 59 L 18 128/58 H 99 Room Air 04/12/23 14:00 04/12/23 14:00 04/12/23 14:00 04/12/23 14:00 04/12/23 14:00 04/12/23 14:00 Oxygen Delivery Method Room Air Weight: 138.527 kg Body Mass Index (BMI) 46.4 Intake & Output: Intake and Output for Last 24 Hours 04/10/23 04/11/23 04/12/23 23:59 23:59 23:59 Intake Total 1162.5 / 1162.5 1384 / 1384 Output Total 650 / 650 Balance 1162.5 / 1162.5 734 / 734 Lab / Micro Data 04/12/23 05:35 04/12/23 05:35 Labs: Laboratory Results - last 24 hr 04/11/23 18:27: WBC 5.6, RBC 3.00 L, Hgb 8.6 L, Hct 28.0 L, MCV 93.3, MCH 28.7, MCHC 30.7 L, RDW Std Deviation 53.4 H, RDW Coeff of Kevyn 15.8 H, Plt Count 217, MPV 11.2, Immature Gran % (Auto) 0.400, Neut % (Auto) 86.8 H, Lymph % (Auto) 3.1 L, [place] % (Auto) 9.0, Eos % (Auto) 0.2, Baso % (Auto) 0.5, Absolute Neuts (auto) 4.8, Absolute Lymphs (auto) 0.17 L, Nucleated RBC % 0, Differential Comment SCANNED, ESR 38 H, Sodium 137, Potassium 4.4, Chloride 108 H, Carbon Dioxide 22.0, Anion Gap 7, BUN 25 H, Creatinine 1.43 H, Estim Creat Clear Calc 35.87, Est GFR (MDRD) Af Amer 46 L, Est GFR (MDRD) Non-Af 38 L, BUN/Creatinine Ratio 17.5, Glucose 108 H, Lactic Acid 0.8, Calcium 8.5, Total Bilirubin 1.70 H, AST 32, ALT 24, Alkaline Phosphatase 76, C-React Prot Ext Range 106.00 H, Total Protein 6.3 L, Albumin 2.5 L, Globulin 3.8, Albumin/Globulin Ratio 0.7 L, Lipase 13 04/11/23 22:59: POC Glucose 145 H 04/12/23 05:35: WBC 3.5 L, RBC 2.88 L, Hgb 8.3 L, Hct 27.4 L, MCV 95.1, MCH 28.8, MCHC 30.3 L, RDW Std Deviation 54.7 H, RDW Coeff of Kevyn 15.8 H, Plt Count 191, MPV 11.5, Immature Gran % (Auto) 0.600, Neut % (Auto) 80.6 H, Lymph % (Auto) 6.8 L, [place] % (Auto) 10.2 H, Eos % (Auto) 0.9, Baso % (Auto) 0.9, Absolute Neuts (auto) 2.8, Absolute Lymphs (auto) 0.24 L, Nucleated RBC % 0, Differential Comment SCANNED, Diff Path Review January, Sodium 136, Potassium 3.8, Chloride 110 H, Carbon Dioxide 21.0, Anion Gap 5, BUN 25 H, Creatinine 1.40 H, Estim Creat Clear Calc 36.64, Est GFR (MDRD) Af Amer 48 L, Est GFR (MDRD) Non-Af 39 L, BUN/Creatinine Ratio 17.9, Glucose 156 H, Calcium 8.1 L, Total Bilirubin 1.30 H, AST 28, ALT 21, Alkaline Phosphatase 71, Total Protein 5.8 L, Albumin 2.3 L, Globulin 3.5, Albumin/Globulin Ratio 0.7 L 04/12/23 06:04: POC Glucose 136 H 04/12/23 11:34: POC Glucose 275 H Radiography Diagnostic Testing: Radiology Impression Venous Doppler Study 04/11/23 20:41 Interpretation Summary There is no evidence of right lower extremity deep vein thrombosis. Right great saphenous vein appears patent and compressible segmentally. Note the limitations that the patient was unable to tolerate compression in the right thigh and proximal calf so color-flow was utilized. Ordering Physician: Toshia Conroy Referring Physician: Maggi Chicas Performed By: Tammy Hall, RVT Chest X-Ray 04/12/23 12:20 IMPRESSION: Cardiomegaly. Otherwise no radiographic evidence of acute cardiopulmonary disease. Electronically Signed: Michael Solis, at 12:48 EDT Reading Location ID and State: [address] [place] [address] Tel , Service support , Physical Exam Const alert, oriented x3, no apparent distress and well nourished Constitutional Narrative: Morbidly obese, older, white female, sitting up in a chair at the bedside, appears comfortable at this time, daughter is at bedside, patient is nontoxic and well-nourished appearing HEENT head/scalp atraumatic and moist oral mucous membranes HEENT Narrative: Mallampati 3, no thrush Head and Scalp: normocephalic Resp normal respiratory effort, no retractions, no use of accessory muscles and clear to auscultation bilaterally Auscultation: Negative for rales, rhonchi or wheezes Cardio regular rate, regular rhythm, S1 normal heart sound, S2 normal heart sound, no rub, no gallops and no clicks; Negative for no murmurs Cardio Narrative: 3 out of 6 systolic murmur loudest at right upper sternal border GI normal to inspection, nondistended, normoactive bowel sounds, soft to palpation and non-tender Extremity Extremity Narrative: Right lower extremity with small punctate wound on the anterior surface just above the patella of her right knee, lower extremity swelling and erythematous just above the right knee, chronic venous stasis changes noticed in distal bi lateral lower extremities, blistering noticed at medial upper tibial region on right lower extremity with no purulent drainage noted, left lower extremity with trace chronic lower extremity edema but no cyanosis or clubbing, significant pain in right knee with movement Neuro oriented x3 and no focal motor deficits Speech: speech normal Psych affect normal Psych Narrative: Patient is very pleasant, interacts appropriately Assessment & Plan Assessment/Plan (1) Cellulitis of right lower extremity: (2) Nausea and vomiting: (3) Hematoma of right lower leg: PLAN: Plan Right lower extremity cellulitis with concern for infected hematoma of the right knee -Cultures are pending -Patient does have history of MRSA -Continue vancomycin and Zosyn -Plan is for OR tomorrow for evacuation of possible infected hematoma cultures will be sent -Per discussion with orthopedic surgery, who saw her at previous hospitalization, the leg does appear to be significantly worse -Consult infectious disease for assistance with discharge planning with regards to antibiotics Large right knee hematoma -Continue antibiotics as there is concern that this could be an infected hematoma -Cultures are pending -OR tomorrow for irrigation and evacuation -Continue to hold Xarelto -Last dose was 04/05/2023 Debility/fall/generalized weakness -PT/OT consultation, weightbearing per orthopedic surgery -Patient will need placement at discharge and indicated she would be satisfied with returning to [facility] however would prefer to go to TCU if possible -Case management/social work following Acute on chronic anemia -Patient with chronic anemia appearing to have his hemoglobin at baseline between 8 and 10 -Current hemoglobin is 8.3 -Was transfused 2 units packed red blood cells at last hospitalization -Repeat CBC in a.m. -Transfuse for hemoglobin less than 7 or precipitous bleeding CHRISTIAN on CKD stage II -Baseline serum creatinine appears to be between 0.9 and 1.1 -Current serum creatinine is 1.4 and trending down -Continue to monitor -Hold home Bumex Paroxysmal atrial fibrillation -Continue home amiodarone -Xarelto on hold due to bleeding -Currently in normal sinus rhythm CAD/HTN/HPL -Status post quadruple bypass in 2017 -Continue home fenofibric acid -Patient does not take beta-brandon or LAUREL/ARB -Check preoperative EKG and chest x-ray KASANDRA -Patient does not tolerate CPAP -Is untreated at baseline -Encouraged outpatient follow-up DM-2 -Hold oral regimen -Start home basal insulin but decrease dose by 50% with n.p.o. status through the night -Continue prandial insulin scheduled -SSI -Cardiac/carb controlled diet -Accu-Chek as ordered DVT prophylaxis -SCDs with recent large hematoma CODE STATUS Full code Charges/Coding Visit Charges Inpatient E&M: 27347 Subs Hosp L2
[2023-04-12 17:04] LABS: Bedside Glucose 202 mg/dL (74-106)
[2023-04-12] MEDS: Insulin Lispro 100 UNIT/ML INSULN.PEN 25 UNIT SC (17:17)
[2023-04-12] MEDS: Atorvastatin Calcium 40 MG Tablet PO (22:03)
[2023-04-12] MEDS: prednisoLONE eye drops (5 mL) 1 DROP OPTH.BTL 1 DRP OPHTHALMIC (22:19)
[2023-04-12] MEDS: MELATONIN 3 MG TABLET PO (22:19)
--- NOTE | 2023-04-12 22:40 | NURSING ---
glucose 62 pt denies s/s hypoglycemia, pt eating now will recheck
[2023-04-12 22:43] LABS: Bedside Glucose 62 mg/dL (74-106)
--- NOTE | 2023-04-12 23:20 | NURSING ---
glucose recheck after meal wnl
[2023-04-12 23:51] LABS: Bedside Glucose 85 mg/dL (74-106)
[2023-04-12] MEDS: 0.9% Saline Lock 10 ML Syringe IV (23:53)
[2023-04-13] VITALS (14 sets, daily range): BP systolic 121–181; BP diastolic 47–99; PULSE 50–62; RESP 16–18; TEMP 36.6–37.2; O2SAT 97–100; BMI 48.4; BMI 48.6
[2023-04-13 06:37] LABS: Bedside Glucose 252 mg/dL (74-106)
[2023-04-13 06:59] LABS: Absolute Lymphocyte Count 0.32 X10^3/uL (0.83-4.51); Absolute Neutrophil Count 2.5 X10^3/uL (2.0-7.7); Basophil# 0.03 X10^3/uL; Basophil% 0.9 % (0-1); Eosinophil# 0.08 X10^3/uL; Eosinophils% 2.4 % (0-5); Hematocrit 24.7 % (37-47); Hemoglobin 7.5 g/dL (12.0-15.0); Lymphocyte # 0.32 X10^3/ul (0.83-4.51); Lymphocyte % 9.4 % (19-41); Mean Corp Hgb Conc 30.4 g/dL (32-36); Mean Corpuscular Hgb 28.4 pg (27.0-32.0); Mean Corpuscular Volume 93.6 fL (81-99); Mean Platelet Vol. 10.9 fl (6.2-12.0); Monocyte# 0.44 X10^3/uL; Monocyte% 12.9 % (0-10); NRBC Flagged by Analyzer 0 % (0-5); Neutrophil # 2.52 X10^3/uL (2.7-7.7); Neutrophil % 74.1 % (47-70); POSITIVE DIFFERENTIAL YES; Platelet Count 182 K/mm3 (150-450); RBC Distribution Width CV 15.6 % (11.6-14.6); RBC Distribution Width SD 53.5 fl (35.1-43.9); Red Blood Count 2.64 M/mm3 (4.2-5.4); White Blood Count 3.4 K/mm3 (4.4-11.0)
[2023-04-13 07:00] LABS: Differential Indicated SCAN CRITERIA MET
[2023-04-13 07:22] LABS: Differential Comment SCANNED
[2023-04-13 07:35] LABS: Vancomycin, Trough Level 20.4 ug/mL (5.0-15.0)
[2023-04-13 07:36] LABS: Partial Thromboplast Time 35.2 Seconds (24.1-36.2)
[2023-04-13 07:44] LABS: Anion Gap 5 (5-15); BUN 29 mg/dL (7-18); BUN/Creat Ratio 20.9 RATIO (10-20); Calcium,Total 8.1 mg/dL (8.5-10.1); Chloride 111 mmol/L (98-107); Creatinine, Serum 1.39 mg/dL (0.55-1.02); EST Glomerular Filtration Rate 40 mL/min (>60); Est Glom Filt Rate - Afr Amer 48 mL/min (>60); Glucose 280 mg/dL (74-106); Magnesium 2.1 mg/dL (1.6-2.6); Phosphorus 2.8 mg/dL (2.5-4.9); Potassium 4.5 mmol/L (3.5-5.1); Sodium Level 137 mmol/L (136-145); Thyroid Stim Hormone (TSH) 0.49 uIU/mL (0.358-3.74)
--- NOTE | 2023-04-13 08:19 | PCM.RX.CS ---
Consult Antibiotic Management Pharmacy has been consulted to manage selected antiobiotic: Vancomycin Type of Intervention Type of Consult: Follow-up Suspected Infection Suspected Infection: Skin/Soft tissue Prior Doses of Antibiotics Prior Doses of Antibiotics Received/Current Regimen: 2000 MG LOADING DOSE X 1 ON 04/11/23, 1250 MG Q12H X 2 DOSES Labs Labs: Sodium 137 mmol/L (136-145) 04/13/23 06:50 Potassium 4.5 mmol/L (3.5-5.1) 04/13/23 06:50 Chloride 111 mmol/L (98-107) H 04/13/23 06:50 Carbon Dioxide 21.0 mmol/L (21.0-32.0) 04/13/23 06:50 Anion Gap 5 (5-15) 04/13/23 06:50 BUN 29 mg/dL (7-18) H 04/13/23 06:50 Creatinine 1.39 mg/dL (0.55-1.02) H 04/13/23 06:50 Est GFR (MDRD) Af Amer 48 mL/min (>60) L 04/13/23 06:50 Est GFR (MDRD) Non-Af 40 mL/min (>60) L 04/13/23 06:50 BUN/Creatinine Ratio 20.9 RATIO (10-20) H 04/13/23 06:50 Glucose 280 mg/dL (74-106) H 04/13/23 06:50 Vancomycin Trough 20.4 ug/mL (5.0-15.0) H 04/13/23 06:50 Dosing Weight Weight used for dosin.5 kg Estimated Creatinine Clearance Estimated Creatinine Clearance: 37 Goal Trough Goal Trough: 15-20 mcg/mL Pharmacy Plan for Drug Dosing Pharmacy Plan for Drug Dosing: Trough 20.4, drawn 1/2 hour early, trough is before the 4th dose, suspect actual trough is in therapeutic range, new calculated dose based on proportion would be 2145 mg /day. Will adjust dose to 1000 mg Q12H starting at 1000 this AM to allow for trough to be below 20, then will order another trough before the 4th dose of this new regimen 04/14/23 @ 2130. Pharmacy Service will continue to monitor and adjust dosing as required. Follow-Up Labs Follow-Up Labs: Trough: Vancomycin Date/Time Labs Ordered Labs to be done on [date and time ordered]: vancomycin trough 04/14/23 @ 2798
[2023-04-13 08:26] LABS: Hemoglobin A1c 6.9 % (3.8-5.6)
[2023-04-13] MEDS: prednisoLONE eye drops (5 mL) 1 DROP OPTH.BTL 1 DRP OPHTHALMIC ×2 (09:15→21:08)
[2023-04-13] MEDS: Amiodarone 200 MG Tablet 100 MG PO (09:15)
[2023-04-13] MEDS: Vancomycin IV 1,000 MG/200 ML BAG 200 MG IV ×2 (09:16→21:40)
--- NOTE | 2023-04-13 09:18 | PCM.CONS.C ---
Assessment & Plan Assessment/Plan (1) Coronary artery disease: (2) HTN (hypertension): (3) Atrial fibrillation: (4) Pulmonary HTN: PLAN: Plan Reviewed case and EKG with Dr. Tolbert. Dr. Tolbert feels that her EKG is sinus rhythm and not junctional that is noted on the machine interpretation. He feels that patient is at a moderate risk for surgery complications because of her pulmonary hypertension. From a cardiac standpoint no additional testing needs to be done. Does recommend close monitoring of patient. HPI Consult Data Date of Consult: 04/13/23 HPI Narrative HPI Narrative: MADAN CARRION, is a 72 F who we were asked to consult on for a preoperative cardiac assessment. Patient does have a history of coronary artery disease with bypass surgery x4, paroxysmal atrial fibrillation, hypertension, hyperlipidemia, chronic kidney disease. She does follow with cardiology at [facility]. Patient recently underwent an ablation for atypical atrial flutter and an ablation to prevent atrial fibrillation. She also has a pulmonary vein isolation. This was done in January 2023. She had an echocardiogram done in July 2022 which demonstrated normal LV size with an estimated ejection fraction of 55 to 60%. Moderate mitral regurgitation, mild mitral valve regurgitation. RVSP is 55 mmHg. Left atrium moderately to severely enlarged. Mild to moderate tricuspid regurg. Right atrium dilated. She is hospitalized for hematoma on her right knee and cellulitis of her right lower extremity. There is concerned that this is an infected hematoma. Patient initially was admitted on 04/06/2023 for a fall with a right knee injury. She was noted to be anemic. She did receive blood transfusion. It was felt that her anemia was related to her trauma in addition to her being on anticoagulants. She did have a significant hematoma to her right knee. [facility] She then presented back to the emergency room on 04/11/2023 with increased pain and concern for infection. Surgery was consulted, they would like to do a evacuation of her hematoma. Patient does not have any chest pain, shortness of breath, irregular heartbeats that she has noted since her ablation. 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 Her Xarelto has been held with her anemia. Her hemoglobin is improving. Hemoglobin today is 8.7. Low-dose amiodarone at 100 mg daily. Her lisinopril is on hold. [facility] Medical History Anemia Anxiety and depression Arthritis CAD (coronary artery disease) CPAP (continuous positive airway pressure) dependence DVT (deep venous thrombosis) History of stress incontinence Hx of necrotizing fasciitis Hypertension Hypothyroidism Insulin dependent diabetes mellitus PAF (paroxysmal atrial fibrillation) Restless legs Stage 3b chronic kidney disease (CKD) Wears dentures Home Medications atorvastatin 40 mg tablet 40 mg PO QHS Cholesterol 09/07/14 [History Last Taken 04/06/23] fenofibric acid (choline) 135 mg capsule,delayed release (Trilipix) 135 mg PO DAILY Cholesterol 09/07/14 [History Last Taken 04/06/23] levothyroxine 175 mcg tablet 200 mcg PO DAILY Thyroid 04/12/20 [History Last Taken 04/06/23] bumetanide 0.5 mg tablet 0.5 mg PO DAILY BP 02/17/21 [History Last Taken 04/06/23] insulin glargine U-300 conc 300 unit/mL (1.5 mL) subcutaneous pen (Toujeo SoloStar U-300 Insulin) 30 unit subcut QHS Diabetes 02/17/21 [History Last Taken 04/06/23] insulin lispro 100 unit/mL subcutaneous solution 25 unit subcut DINNER Diabetes 02/17/21 [History Last Taken 04/06/23] insulin lispro 100 unit/mL subcutaneous solution (Humalog U-100 Insulin) 12 unit subcut BREAKFAST Diabetes 02/17/21 [History Last Taken 04/06/23] acetaminophen 500 mg tablet 1,000 mg (2 x 500 mg) PO Q6H PRN PRN Pain Score 1-5 #0 tabs 05/14/21 [Rx Last Taken 04/06/23] insulin lispro 100 unit/mL subcutaneous pen 18 unit subcut LUNCH diabetes 05/30/21 [History Last Taken 04/06/23] rivaroxaban 15 mg tablet (Xarelto) 20 mg PO DAILY blood thinner 05/30/21 [History Last Taken 04/06/23] amiodarone 200 mg tablet 100 mg PO DAILY hrt 11/12/21 [History Last Taken 04/06/23] doxycycline monohydrate 100 mg capsule 100 mg PO DAILY cellulitis #30 caps 04/09/23 [Rx Last Taken Unknown] insulin lispro 100 unit/mL subcutaneous pen (Humalog KwikPen (U-100) Insulin) See Protocol subcut 4X/DAYCM dm #0 mL 04/09/23 [Rx Last Taken Unknown] oxycodone 5 mg tablet 5 mg PO Q4H PRN PRN Pain Score 4-10 3 days #12 tabs 04/09/23 [Rx Last Taken Unknown] sennosides 8.6 mg-docusate sodium 50 mg tablet (Stool Softener-Stimulant Laxative) 2 tab PO BID PRN PRN Constipation #0 tabs 04/09/23 [Rx Last Taken Unknown] cephalexin 500 mg tablet 500 mg PO Q8H cellulitis 7 days #21 tabs 04/11/23 [Rx Last Taken Unknown] lisinopril 10 mg tablet 10 mg PO DAILY bp 04/11/23 [History Last Taken Unknown] ofloxacin 0.3 % eye drops 1 drp ophthalmic (eye) Q6H eye 04/11/23 [History Last Taken Unknown] prednisolone acetate 1 % eye drops,suspension 1 drp ophthalmic (eye) BID eye 04/11/23 [History Last Taken Unknown] sodium chloride 5 % eye drops 1 drp ophthalmic (eye) BID eye 04/11/23 [History Last Taken Unknown] sulfamethoxazole 800 mg-trimethoprim 160 mg tablet (Bactrim DS) 1 tab PO BID cellulitis 7 days #14 tabs 04/11/23 [Rx Last Taken Unknown] Allergy/AdvReac Type Severity Reaction Status Date / Time hydralazine HCl Allergy Other Verified 04/11/23 17:15 [From Apresoline] ondansetron [From Zofran] AdvReac Nausea Verified 04/11/23 17:15 Family History Mother Diabetes Heart disease Hypertension Father Diabetes Heart disease Hypertension Surgical History History of cardiac catheterization History of cardiac radiofrequency ablation History of hip replacement History of quadruple bypass History of total left hip replacement Hx of CABG Hx of cholecystectomy Hx of colonoscopy Hx of tubal ligation Social History household members: none housing: house number of children: 3 Smoking Status: Former smoker alcohol intake: never substance use type: does not use ROS Constitutional Constitutional: Reports fatigue; Denies change in weight, chills, frequent falls, headache(s) or lethargy Eyes Eyes: Denies acute decrease in peripheral vision, blurry vision or change in vision ENT HEENT: Denies dizziness, dry mouth, epistaxis, headache(s), tinnitus or vertigo Cardiovascular Cardiovascular: Denies chest pain at rest, chest pain with activity, claudication, dyspnea at rest, dyspnea on exertion, edema, irregular heart rhythm, lightheadedness, orthopnea, orthostatic symptoms, palpitations or pedal edema Respiratory/Chest Respiratory/Chest: Denies cough, dyspnea, dyspnea on exertion, tachypnea or wheezing Gastrointestinal Gastrointestinal: Denies abdominal pain, bloating, coffee ground emesis, diarrhea, heartburn, hematemesis, hematochezia, melena or nausea Genitourinary Genitourinary: Denies hematuria Musculoskeletal Musculoskeletal: Reports as per HPI Neurologic Neurologic: Denies abnormal gait, abnormal speech, memory loss, paresthesias or weakness Physical Exam Const alert, oriented x3 and no apparent distress General Appearance: cooperative HEENT normocephalic and head/scalp atraumatic Eyes PERRL and EOMs intact bilaterally Neck supple and No nodes Resp normal air movement and clear to auscultation bilaterally Cardio regular rate, regular rhythm, S1 normal heart sound, S2 normal heart sound, no murmurs, no rub, no gallops and no clicks GI soft to palpation, non-tender and non-distended Extremity General Extremity: edema Skin Skin Narrative: R lower leg with large bulla, extensive redness and mild warmth Neuro CN's II-XII intact bilaterally Risk Stratification Risk Stratification Applicable: No Charges/Coding Visit Charges Office Visits / Consults: 92984 IP Consult L3 Objective Data Vital Signs: Vital Signs Temp Pulse Resp BP Pulse Ox O2 Del Method 98.1 F 56 L 18 121/47 H 100 Room Air 04/13/23 08:00 04/13/23 08:00 04/13/23 08:00 04/13/23 08:00 04/13/23 08:00 04/13/23 08:00 Oxygen Delivery Method Room Air Weight: 305 lb 6.4 oz Body Mass Index (BMI) 46.4 Intake & Output: Intake and Output for Last 24 Hours 07/16/23 07/17/23 07/18/23 23:59 23:59 23:59 Intake Total 1162.5 / 1162.5 1709 / 1709 100 / 100 Output Total 1050 / 1050 500 / 500 Balance 1162.5 / 1162.5 659 / 659 -400 / -400 Lab / Micro Data 04/13/23 11:23 04/13/23 06:50 Labs: Laboratory Results - last 24 hr 04/12/23 11:34: POC Glucose 275 H 04/12/23 16:36: POC Glucose 202 H 04/12/23 22:07: POC Glucose 62 L 04/12/23 23:20: POC Glucose 85 04/13/23 06:19: POC Glucose 252 H 04/13/23 06:50: WBC 3.4 L, RBC 2.64 L, Hgb 7.5 L, Hct 24.7 L, MCV 93.6, MCH 28.4, MCHC 30.4 L, RDW Std Deviation 53.5 H, RDW Coeff of Kevyn 15.6 H, Plt Count 182, MPV 10.9, Immature Gran % (Auto) 0.300, Neut % (Auto) 74.1 H, Lymph % (Auto) 9.4 L, [place] % (Auto) 12.9 H, Eos % (Auto) 2.4, Baso % (Auto) 0.9, Absolute Neuts (auto) 2.5, Absolute Lymphs (auto) 0.32 L, Nucleated RBC % 0, Differential Comment SCANNED, Diff Path Review January, APTT 35.2, Sodium 137, Potassium 4.5, Chloride 111 H, Carbon Dioxide 21.0, Anion Gap 5, BUN 29 H, Creatinine 1.39 H, Estim Creat Clear Calc 36.90, Est GFR (MDRD) Af Amer 48 L, Est GFR (MDRD) Non-Af 40 L, BUN/Creatinine Ratio 20.9 H, Glucose 280 H, Hemoglobin A1c 6.9 H, Calcium 8.1 L, Phosphorus 2.8, Magnesium 2.1, TSH 0.49, Vancomycin Trough 20.4 H Cardiology Labs/Tests 04/13/23 06:50: WBC 3.4 L, RBC 2.64 L, Hgb 7.5 L, Hct 24.7 L, MCV 93.6, MCH 28.4, MCHC 30.4 L, Plt Count 182, MPV 10.9, Immature Gran % (Auto) 0.300, Neut % (Auto) 74.1 H, Lymph % (Auto) 9.4 L, [place] % (Auto) 12.9 H, Eos % (Auto) 2.4, Baso % (Auto) 0.9, Absolute Neuts (auto) 2.5, Nucleated RBC % 0, APTT 35.2, Sodium 137, Potassium 4.5, Chloride 111 H, Carbon Dioxide 21.0, Anion Gap 5, BUN 29 H, Creatinine 1.39 H, Est GFR (MDRD) Af Amer 48 L, Est GFR (MDRD) Non-Af 40 L, BUN/Creatinine Ratio 20.9 H, Glucose 280 H, Hemoglobin A1c 6.9 H, Calcium 8.1 L, Phosphorus 2.8, Magnesium 2.1 Radiography Diagnostic Testing: Radiology Impression Venous Doppler Study 04/11/23 20:41 Interpretation Summary There is no evidence of right lower extremity deep vein thrombosis. Right great saphenous vein appears patent and compressible segmentally. Note the limitations that the patient was unable to tolerate compression in the right thigh and proximal calf so color-flow was utilized. Ordering Physician: Toshia Conroy Referring Physician: Maggi Chicas Performed By: Tammy Hall Shereen Chest X-Ray 04/12/23 12:20 IMPRESSION: Cardiomegaly. Otherwise no radiographic evidence of acute cardiopulmonary disease. Electronically Signed: Michael Soils, at 12:48 EDT ,
--- NOTE | 2023-04-13 10:49 | PCM.CONS.GEN ---
Assessment & Plan Assessment/Plan (1) Cellulitis of right lower extremity: PLAN: OR planned for today with Dr. Gallegos for hematoma. Sx improving on vanc/ceftriaxone. Had been on bactrim/keflex prior to admit. Will follow, thank you (2) Hematoma of right lower leg: HPI Consult Data Date of Consult: 04/13/23 HPI Narrative Reason for Consultation: cellulitis HPI Narrative: MADAN CARRION, is a 72 F with h/o obesity, htn, CKD, DM, admitted last week after fall causing RLE hematoma. Course then complicated by associated cellulitis, sent out on bactrim/keflex 04/09 but developed fever, blistering, worsening pain. Admitted here, given vanc/ceftriaxone, pain is now down to 4/10 and redness slightly faded. OR planned for today. Full ROS performed and neg except as noted above. [facility] Medical History Anemia Anxiety and depression Arthritis CAD (coronary artery disease) CPAP (continuous positive airway pressure) dependence DVT (deep venous thrombosis) History of stress incontinence Hx of necrotizing fasciitis Hypertension Hypothyroidism Insulin dependent diabetes mellitus PAF (paroxysmal atrial fibrillation) Restless legs Stage 3b chronic kidney disease (CKD) Wears dentures Home Medications atorvastatin 40 mg tablet 40 mg PO QHS Cholesterol 09/07/14 [History Last Taken 04/06/23] fenofibric acid (choline) 135 mg capsule,delayed release (Trilipix) 135 mg PO DAILY Cholesterol 09/07/14 [History Last Taken 04/06/23] levothyroxine 175 mcg tablet 200 mcg PO DAILY Thyroid 04/12/20 [History Last Taken 04/06/23] bumetanide 0.5 mg tablet 0.5 mg PO DAILY BP 02/17/21 [History Last Taken 04/06/23] insulin glargine U-300 conc 300 unit/mL (1.5 mL) subcutaneous pen (Toujeo SoloStar U-300 Insulin) 30 unit subcut QHS Diabetes 02/17/21 [History Last Taken 04/06/23] insulin lispro 100 unit/mL subcutaneous solution 25 unit subcut DINNER Diabetes 02/17/21 [History Last Taken 04/06/23] insulin lispro 100 unit/mL subcutaneous solution (Humalog U-100 Insulin) 12 unit subcut BREAKFAST Diabetes 02/17/21 [History Last Taken 04/06/23] acetaminophen 500 mg tablet 1,000 mg (2 x 500 mg) PO Q6H PRN PRN Pain Score 1-5 #0 tabs 05/14/21 [Rx Last Taken 04/06/23] insulin lispro 100 unit/mL subcutaneous pen 18 unit subcut LUNCH diabetes 05/30/21 [History Last Taken 04/06/23] rivaroxaban 15 mg tablet (Xarelto) 20 mg PO DAILY blood thinner 05/30/21 [History Last Taken 04/06/23] amiodarone 200 mg tablet 100 mg PO DAILY hrt 11/12/21 [History Last Taken 04/06/23] doxycycline monohydrate 100 mg capsule 100 mg PO DAILY cellulitis #30 caps 04/09/23 [Rx Last Taken Unknown] insulin lispro 100 unit/mL subcutaneous pen (Humalog KwikPen (U-100) Insulin) See Protocol subcut 4X/DAYCM dm #0 mL 04/09/23 [Rx Last Taken Unknown] oxycodone 5 mg tablet 5 mg PO Q4H PRN PRN Pain Score 4-10 3 days #12 tabs 04/09/23 [Rx Last Taken Unknown] sennosides 8.6 mg-docusate sodium 50 mg tablet (Stool Softener-Stimulant Laxative) 2 tab PO BID PRN PRN Constipation #0 tabs 04/09/23 [Rx Last Taken Unknown] cephalexin 500 mg tablet 500 mg PO Q8H cellulitis 7 days #21 tabs 04/11/23 [Rx Last Taken Unknown] lisinopril 10 mg tablet 10 mg PO DAILY bp 04/11/23 [History Last Taken Unknown] ofloxacin 0.3 % eye drops 1 drp ophthalmic (eye) Q6H eye 04/11/23 [History Last Taken Unknown] prednisolone acetate 1 % eye drops,suspension 1 drp ophthalmic (eye) BID eye 04/11/23 [History Last Taken Unknown] sodium chloride 5 % eye drops 1 drp ophthalmic (eye) BID eye 04/11/23 [History Last Taken Unknown] sulfamethoxazole 800 mg-trimethoprim 160 mg tablet (Bactrim DS) 1 tab PO BID cellulitis 7 days #14 tabs 04/11/23 [Rx Last Taken Unknown] Allergy/AdvReac Type Severity Reaction Status Date / Time hydralazine HCl Allergy Other Verified 04/11/23 17:15 [From Apresoline] ondansetron [From Zofran] AdvReac Nausea Verified 04/11/23 17:15 Family History Mother Diabetes Heart disease Hypertension Father Diabetes Heart disease Hypertension Surgical History History of cardiac catheterization History of cardiac radiofrequency ablation History of hip replacement History of quadruple bypass History of total left hip replacement Hx of CABG Hx of cholecystectomy Hx of colonoscopy Hx of tubal ligation Social History household members: none housing: house number of children: 3 Smoking Status: Former smoker alcohol intake: never substance use type: does not use Physical Exam Const alert, oriented x3 and no apparent distress General Appearance: cooperative HEENT normocephalic and head/scalp atraumatic Eyes PERRL and EOMs intact bilaterally Neck supple and No nodes Resp normal air movement and clear to auscultation bilaterally Cardio regular rate and regular rhythm GI soft to palpation, non-tender and non-distended Extremity General Extremity: edema Skin Skin Narrative: R lower leg with large bulla, extensive redness and mild warmth Neuro CN's II-XII intact bilaterally Lab / Micro Data Attestation: I reviewed the patient's lab results. 04/13/23 06:50 04/13/23 06:50 Labs: Laboratory Results - last 24 hr 04/12/23 11:34: POC Glucose 275 H 04/12/23 16:36: POC Glucose 202 H 04/12/23 22:07: POC Glucose 62 L 04/12/23 23:20: POC Glucose 85 04/13/23 06:19: POC Glucose 252 H 04/13/23 06:50: WBC 3.4 L, RBC 2.64 L, Hgb 7.5 L, Hct 24.7 L, MCV 93.6, MCH 28.4, MCHC 30.4 L, RDW Std Deviation 53.5 H, RDW Coeff of Kevyn 15.6 H, Plt Count 182, MPV 10.9, Immature Gran % (Auto) 0.300, Neut % (Auto) 74.1 H, Lymph % (Auto) 9.4 L, [place] % (Auto) 12.9 H, Eos % (Auto) 2.4, Baso % (Auto) 0.9, Absolute Neuts (auto) 2.5, Absolute Lymphs (auto) 0.32 L, Nucleated RBC % 0, Differential Comment SCANNED, Diff Path Review January, APTT 35.2, Sodium 137, Potassium 4.5, Chloride 111 H, Carbon Dioxide 21.0, Anion Gap 5, BUN 29 H, Creatinine 1.39 H, Estim Creat Clear Calc 36.90, Est GFR (MDRD) Af Amer 48 L, Est GFR (MDRD) Non-Af 40 L, BUN/Creatinine Ratio 20.9 H, Glucose 280 H, Hemoglobin A1c 6.9 H, Calcium 8.1 L, Phosphorus 2.8, Magnesium 2.1, TSH 0.49, Vancomycin Trough 20.4 H Radiology Impression Venous Doppler Study 04/11/23 20:41 Interpretation Summary There is no evidence of right lower extremity deep vein thrombosis. Right great saphenous vein appears patent and compressible segmentally. Note the limitations that the patient was unable to tolerate compression in the right thigh and proximal calf so color-flow was utilized. Ordering Physician: Toshia Conroy Referring Physician: Maggi Chicas Performed By: Tammy Hall T Chest X-Ray 04/12/23 12:20 IMPRESSION: Cardiomegaly. Otherwise no radiographic evidence of acute cardiopulmonary disease. Electronically Signed: Michael Solis, at 12:48 EDT ,
[2023-04-13 11:29] LABS: Hemoglobin 8.7 g/dL (12.0-15.0)
[2023-04-13 12:09] LABS: Bedside Glucose 279 mg/dL (74-106)
--- NOTE | 2023-04-13 12:14 | PN.HOSP_ITS ---
Reason for Visit Reason for Visit: Worsening redness right lower extremity/nausea/vomiting and unable to tolerate oral antibiotics Subjective Subjective No issues overnight. Pain medication seems to be effective for controlling her pain. Plan is OR later today. No spreading of erythematous area. Objective Data Objective Data Vital Signs: Vital Signs Temp Pulse Resp BP Pulse Ox O2 Del Method 98.1 F 56 L 18 121/47 H 100 Room Air 04/13/23 08:00 04/13/23 08:00 04/13/23 08:00 04/13/23 08:00 04/13/23 08:00 04/13/23 08:00 Oxygen Delivery Method Room Air Weight: 145 kg Body Mass Index (BMI) 48.4 Intake & Output: Intake and Output for Last 24 Hours 04/11/23 04/12/23 04/13/23 23:59 23:59 23:59 Intake Total 1162.5 / 1162.5 1709 / 1709 300 / 300 Output Total 1050 / 1050 500 / 500 Balance 1162.5 / 1162.5 659 / 659 -200 / -200 Lab / Micro Data 04/13/23 11:23 04/13/23 06:50 Labs: Laboratory Results - last 24 hr 04/12/23 16:36: POC Glucose 202 H 04/12/23 22:07: POC Glucose 62 L 04/12/23 23:20: POC Glucose 85 04/13/23 06:19: POC Glucose 252 H 04/13/23 06:50: WBC 3.4 L, RBC 2.64 L, Hgb 7.5 L, Hct 24.7 L, MCV 93.6, MCH 28.4, MCHC 30.4 L, RDW Std Deviation 53.5 H, RDW Coeff of Kevyn 15.6 H, Plt Count 182, MPV 10.9, Immature Gran % (Auto) 0.300, Neut % (Auto) 74.1 H, Lymph % (Auto) 9.4 L, [place] % (Auto) 12.9 H, Eos % (Auto) 2.4, Baso % (Auto) 0.9, Absolute Neuts (auto) 2.5, Absolute Lymphs (auto) 0.32 L, Nucleated RBC % 0, Differential Comment SCANNED, Diff Path Review January, APTT 35.2, Sodium 137, Potassium 4.5, Chloride 111 H, Carbon Dioxide 21.0, Anion Gap 5, BUN 29 H, Creatinine 1.39 H, Estim Creat Clear Calc 36.90, Est GFR (MDRD) Af Amer 48 L, Est GFR (MDRD) Non-Af 40 L, BUN/Creatinine Ratio 20.9 H, Glucose 280 H, Hemoglobin A1c 6.9 H, Calcium 8.1 L, Phosphorus 2.8, Magnesium 2.1, TSH 0.49, Vancomycin Trough 20.4 H 04/13/23 11:23: Hgb 8.7 L 04/13/23 11:41: POC Glucose 279 H Radiography Diagnostic Testing: Radiology Impression Venous Doppler Study 04/11/23 20:41 Interpretation Summary There is no evidence of right lower extremity deep vein thrombosis. Right great saphenous vein appears patent and compressible segmentally. Note the limitations that the patient was unable to tolerate compression in the right thigh and proximal calf so color-flow was utilized. Ordering Physician: Toshia Conroy Referring Physician: Maggi Chicas Performed By: Tammy Hall, [facility] Chest X-Ray 04/12/23 12:20 IMPRESSION: Cardiomegaly. Otherwise no radiographic evidence of acute cardiopulmonary disease. Electronically Signed: Michael Solis, at 12:48 EDT Reading Location ID and State: [facility] / [place] Tel , Service support , Physical Exam Const alert, oriented x3, no apparent distress and well nourished Constitutional Narrative: Morbidly obese, older, white female, sitting up in bed, watching television, appears comfortable at this time, patient is nontoxic and well-nourished appearing HEENT head/scalp atraumatic and moist oral mucous membranes HEENT Narrative: Mallampati 3, no thrush Head and Scalp: normocephalic Resp normal respiratory effort, no retractions, no use of accessory muscles and clear to auscultation bilaterally Auscultation: Negative for rales, rhonchi or wheezes Cardio regular rate, regular rhythm, S1 normal heart sound, S2 normal heart sound, no rub, no gallops and no clicks; Negative for no murmurs Cardio Narrative: 3 out of 6 systolic murmur loudest at right upper sternal border GI normal to inspection, nondistended, normoactive bowel sounds, soft to palpation and non-tender Extremity Extremity Narrative: Right lower extremity with small punctate wound on the anterior surface just above the patella of her right knee, lower extremity swelling and erythematous just above the right knee, chronic venous stasis changes noticed in distal bilateral lower extremities, blistering noticed at medial upper tibial region on right lower extremity with no purulent drainage noted, left lower extremity with trace chronic lower extremity edema but no cyanosis or clubbing, significant pain in right knee with movement Neuro oriented x3 and no focal motor deficits Speech: speech normal Psych affect normal Psych Narrative: Patient is very pleasant, interacts appropriately Assessment & Plan Assessment/Plan (1) Cellulitis of right lower extremity: (2) Nausea and vomiting: (3) Hematoma of right lower leg: PLAN: Plan Right lower extremity cellulitis with concern for infected hematoma of the right knee -Cultures remain pending -Patient does have history of MRSA -Continue vancomycin and Zosyn -ID managing antibiotics -Plan is for OR this afternoon for evacuation of possible infected hematoma cultures will be sent -Per Dr. Doty -Infectious disease following-appreciate input -Cardiology has evaluated the patient and cleared her for surgery Large right knee hematoma -Continue antibiotics as there is concern that this could be an infected hematoma -Blood cultures remain pending -OR today for irrigation and evacuation -Continue to hold Xarelto until okay to reinitiate per orthopedic surgery -Last dose was 04/05/2023 Debility/fall/generalized weakness -PT/OT consultation, weightbearing per orthopedic surgery -Plan is to return back to [facility] once appropriate medically for discharge -Case management/social work following Acute on chronic anemia -Patient with chronic anemia appearing to have his hemoglobin at baseline between 8 and 10 -Hemoglobin this morning was 7.5 from 8.3 yesterday however repeat was performed and repeat shows a hemoglobin of 8.7 -Was transfused 2 units packed red blood cells at last hospitalization -Repeat CBC in a.m. -Transfuse for hemoglobin less than 7 or precipitous bleeding CHRISTIAN on CKD stage II -Baseline serum creatinine appears to be between 0.9 and 1.1 -Current serum creatinine is 1.39 and appears stable -Continue to monitor -Hold home Bumex Paroxysmal atrial fibrillation -Continue home amiodarone -Xarelto on hold due to bleeding -Currently in normal sinus rhythm CAD/HTN/HPL -Status post quadruple bypass in 2017 -Continue home fenofibric acid -Patient does not take beta-brandon or LAUREL/ARB KASANDRA -Patient does not tolerate CPAP -Is untreated at baseline -Encouraged outpatient follow-up DM-2 -Hold oral regimen -Increase basal insulin to 30 units at 6 nightly -Continue prandial insulin scheduled -SSI -Cardiac/carb controlled diet -Accu-Chek as ordered DVT prophylaxis -SCDs with recent large hematoma CODE STATUS Full code Charges/Coding Visit Charges Inpatient E&M: 76018 Subs Hosp L2
[2023-04-13 12:34] LABS: Pathologist Review Reviewed
[2023-04-13] MEDS: Lactated Ringers 1,000 ML 15 ML IV ×2 (14:10→16:34)
--- NOTE | 2023-04-13 16:05 | PCM.OP.BLANK ---
Operative Report Date of Procedure: 04/13/23 Preoperative diagnosis: Right knee hematoma Postoperative diagnosis: Same Procedure: Evacuation of hematoma application of wound VAC Anesthesia: General LMA EBL: Large amount of hematoma removed however minimal acute bleeding Complications: None Culture :hematoma Condition: Stable to PACU Indication for procedure: 72-year-old female on Xarelto had a fall to the right knee sustaining a large hematoma to the subcutaneous tissues of the anterior medial extending across the knee and lateral knee, demonstrated on CT scan. Subsequently developed cellulitis in the leg, and conversation for evacuation of hematoma was had, risk benefits and alternatives were reviewed including wound healing complications ,risk of bleeding infection nerve, artery, bone, tissue damage, blood clot need for further surgery and continued pain. Procedure: Patient was met in the preoperative holding area once again the operative extremity was then a 5 by both patient and physician was marked patient brought back to the operating room wheeled cart transfer the upper table supine position anesthesia was started well-padded tourniquet was placed on the right upper thigh but was not inflated during the case. Patient was prepped and draped in the usual sterile fashion a timeout was called ensure the proper patient procedure extremity being contemplated. Based on the CT scan and palpation of the skin a paramidline incision was made over the apex of the hematoma immediately a large amount of hematoma was expressed, there was very tight thin tenuous skin in the medial upper leg when we used her retractors a small skin tear occurred extending the incision to a more hockey stick type of appearance extending posterior medial. After the hematoma was evacuated by manual means a curette was used as well as pulse lavage irrigation thoroughly cleaning the area and removing excess clot. Betadine rinse was placed the knee was thoroughly irrigated with sterile saline again and due to the void that was created by expressing the hematoma it was felt a seroma would result if primary closure was initially performed therefore we proceeded with application of a wound VAC we did have a good seal and this did eliminate the void well. Wound VAC was placed on continuous 125 mmHg.
[2023-04-13 16:23] LABS: Bedside Glucose 250 mg/dL (74-106)
[2023-04-13] MEDS: Insulin Lispro 100 UNIT/ML INSULN.PEN SC ×2 (16:45→21:06)
[2023-04-13] MEDS: Morphine 2 MG/ML Syringe IV (18:39)
[2023-04-13] MEDS: 0.9% Saline Lock 10 ML Syringe IV (18:41)
[2023-04-13] MEDS: Atorvastatin Calcium 40 MG Tablet PO (21:07)
[2023-04-13] MEDS: Nystatin Powder 15gm Bottle 1 APPLIC TOPICAL (21:08)
[2023-04-13] MEDS: Menthol/Lanolin/Calamine/Znox 113 GM Tube 1 APPLIC TOPICAL (21:09)
[2023-04-13 21:35] LABS: Bedside Glucose 264 mg/dL (74-106)
[2023-04-14] VITALS (7 sets, daily range): BP systolic 135–176; BP diastolic 57–77; PULSE 53–62; RESP 16–18; TEMP 36.6–36.7; O2SAT 95–100; BMI 48.4
[2023-04-14] MEDS: Insulin Glargine-YFGN 100 UNIT/ML Pen 30 UNIT SC ×2 (00:12→22:47)
[2023-04-14 00:38] LABS: Bedside Glucose 281 mg/dL (74-106)
[2023-04-14] MEDS: Levothyroxine 100 MCG Tablet 200 MCG PO (06:30)
[2023-04-14] MEDS: Insulin Lispro 100 UNIT/ML INSULN.PEN SC ×3 (06:35→16:53)
[2023-04-14 06:41] LABS: Absolute Lymphocyte Count 0.47 X10^3/uL (0.83-4.51); Basophil# 0.04 X10^3/uL; Eosinophil# 0.13 X10^3/uL; Eosinophils% 3.1 % (0-5); Hematocrit 25.9 % (37-47); Hemoglobin 7.8 g/dL (12.0-15.0); Lymphocyte # 0.47 X10^3/ul (0.83-4.51); Lymphocyte % 11.2 % (19-41); Mean Corp Hgb Conc 30.1 g/dL (32-36); Mean Corpuscular Hgb 28.8 pg (27.0-32.0); Mean Corpuscular Volume 95.6 fL (81-99); Mean Platelet Vol. 10.8 fl (6.2-12.0); Monocyte# 0.54 X10^3/uL; Monocyte% 12.8 % (0-10); NRBC Flagged by Analyzer 0 % (0-5); Neutrophil % 71.2 % (47-70); POSITIVE DIFFERENTIAL YES; Platelet Count 235 K/mm3 (150-450); RBC Distribution Width CV 15.3 % (11.6-14.6); Red Blood Count 2.71 M/mm3 (4.2-5.4); White Blood Count 4.2 K/mm3 (4.4-11.0)
[2023-04-14 06:43] LABS: Differential Indicated SCAN CRITERIA MET
[2023-04-14 07:08] LABS: Anion Gap 3 (5-15); BUN 19 mg/dL (7-18); BUN/Creat Ratio 16.1 RATIO (10-20); Calcium,Total 8.5 mg/dL (8.5-10.1); Chloride 111 mmol/L (98-107); Creatinine, Serum 1.18 mg/dL (0.55-1.02); EST Glomerular Filtration Rate 48 mL/min (>60); Est Glom Filt Rate - Afr Amer 58 mL/min (>60); Estimated Creatinine Clearance 43.47 ml/min; Glucose 278 mg/dL (74-106); Potassium 5.2 mmol/L (3.5-5.1); Sodium Level 138 mmol/L (136-145)
[2023-04-14 07:15] LABS: Differential Comment SCANNED
[2023-04-14 07:52] LABS: Bedside Glucose 257 mg/dL (74-106)
[2023-04-14] MEDS: Insulin Lispro 100 UNIT/ML INSULN.PEN 12 UNIT SC (08:06)
[2023-04-14 08:39] LABS: Bedside Glucose 247 mg/dL (74-106)
[2023-04-14 09:42] LABS: Pathologist Review Reviewed
--- NOTE | 2023-04-14 09:47 | CASEMGMT ---
Social Work Pt is scheduled for surgery on Wednesday. SW updated Staci in TCU and requested pt be considered for admission to TCU after this time. LORI met with pt and updated that is requesting that TCU review pt for admission but in the event they cannot accept, [facility] is able to accept pt back. Precert will need obtained prior to discharge to either facility. Pt is agreeable to d/c plan. Plan: TCU vs [facility], precert will be needed. CHIKI Covarrubias
--- NOTE | 2023-04-14 09:59 | CASEMGMT ---
Discharge Planning Clinical and dc updates sent to [facility] via [facility]. Josie Rubin, Discharge Planning Asst.
[2023-04-14] MEDS: Vancomycin IV 1,000 MG/200 ML BAG 200 MG IV ×2 (11:02→21:54)
[2023-04-14] MEDS: Amiodarone 200 MG Tablet 100 MG PO (11:03)
[2023-04-14] MEDS: Menthol/Lanolin/Calamine/Znox 113 GM Tube 1 APPLIC TOPICAL (11:03)
[2023-04-14] MEDS: Nystatin Powder 15gm Bottle 1 APPLIC TOPICAL (11:03)
[2023-04-14] MEDS: Fenofibrate 145 MG Tablet PO (11:04)
[2023-04-14] MEDS: prednisoLONE eye drops (5 mL) 1 DROP OPTH.BTL 1 DRP OPHTHALMIC ×2 (11:04→22:47)
[2023-04-14] MEDS: Insulin Lispro 100 UNIT/ML INSULN.PEN 18 UNIT SC (11:14)
--- NOTE | 2023-04-14 11:18 | PCM.PN.HOSP ---
Reason for Visit Reason for Visit: Worsening redness right lower extremity/nausea/vomiting and unable to tolerate oral antibiotics Subjective Subjective No issues overnight. Pain is managed adequately per discussion with patient. Bowel movement yesterday. Wound VAC on knee and plan is for repeat OR on Wednesday for attempted closure and if unable to close will replace wound VAC. Objective Data Objective Data Vital Signs: Vital Signs Temp Pulse Resp BP Pulse Ox O2 Del Method O2 Flow Rate 97.9 F 61 18 135/58 H 100 Room Air 2 04/14/23 09:24 04/14/23 09:24 04/14/23 09:24 04/14/23 09:24 04/14/23 09:24 04/14/23 09:37 04/13/23 18:40 Oxygen Flow Rate (L/min) 2 Oxygen Delivery Method Room Air Weight: 145 kg Body Mass Index (BMI) 48.4 Intake & Output: Intake and Output for Last 24 Hours 04/12/23 04/13/23 04/14/23 23:59 23:59 23:59 Intake Total 1709 / 1709 1665 / 2065 600 / 600 Output Total 1050 / 1050 1300 / 2050 1050 / 1050 Balance 659 / 659 365 / 15 -450 / -450 Lab / Micro Data 04/14/23 06:25 04/14/23 06:25 Labs: Laboratory Results - last 24 hr 04/12/23 05:35: Diff Path Review Reviewed 04/13/23 06:50: Diff Path Review Reviewed 04/13/23 11:23: Hgb 8.7 L 04/13/23 11:41: POC Glucose 279 H 04/13/23 16:06: POC Glucose 250 H 04/13/23 21:04: POC Glucose 264 H 04/14/23 00:10: POC Glucose 281 H 04/14/23 06:25: WBC 4.2 L, RBC 2.71 L, Hgb 7.8 L, Hct 25.9 L, MCV 95.6, MCH 28.8, MCHC 30.1 L, RDW Std Deviation 53.0 H, RDW Coeff of Kevyn 15.3 H, Plt Count 235, MPV 10.8, Immature Gran % (Auto) 0.700, Neut % (Auto) 71.2 H, Lymph % (Auto) 11.2 L, [place] % (Auto) 12.8 H, Eos % (Auto) 3.1, Baso % (Auto) 1.0, Absolute Neuts (auto) 3.0, Absolute Lymphs (auto) 0.47 L, Nucleated RBC % 0, Differential Comment SCANNED, Diff Path Review January, Sodium 138, Potassium 5.2 H, Chloride 111 H, Carbon Dioxide 24.0, Anion Gap 3 L, BUN 19 H, Creatinine 1.18 H, Estim Creat Clear Calc 43.47, Est GFR (MDRD) Af Amer 58 L, Est GFR (MDRD) Non-Af 48 L, BUN/Creatinine Ratio 16.1, Glucose 278 H, Calcium 8.5 04/14/23 06:35: POC Glucose 257 H 04/14/23 08:05: POC Glucose 247 H Micro: Microbiology 04/11/23 18:51 Blood Culture (Wb) - Anticubital Right Blood Culture - Preliminary No growth in 48 hours. 04/11/23 18:52 Blood Culture (Wb) - Left Hand Blood Culture - Preliminary No growth in 48 hours. 04/13/23 16:00 Wound Drainage - Knee Wound Culture - Preliminary No growth-Final to follow Physical Exam Const alert, oriented x3, no apparent distress and well nourished Constitutional Narrative: Morbidly obese, older, white female, sitting up in a chair at the bedside with her legs elevated, watching television, appears comfortable at this time, patient is nontoxic and well-nourished appearing HEENT head/scalp atraumatic and moist oral mucous membranes HEENT Narrative: Mallampati 3 Resp normal respiratory effort, no retractions, no use of accessory muscles and clear to auscultation bilaterally Auscultation: Negative for rales, rhonchi or wheezes Cardio regular rate, regular rhythm, S1 normal heart sound, S2 normal heart sound, no rub, no gallops and no clicks; Negative for no murmurs Cardio Narrative: 3 out of 6 systolic murmur loudest at right upper sternal border GI normal to inspection, nondistended, normoactive bowel sounds, soft to palpation and non-tender Extremity Extremity Narrative: Right lower extremity with wound VAC in place edema seems to be improving, erythema seems to be improved however significant ecchymosis still noted around the area Neuro oriented x3 and no focal motor deficits Speech: speech normal Psych affect normal Psych Narrative: Patient is very pleasant, interacts appropriately Assessment & Plan Assessment/Plan (1) Cellulitis of right lower extremity: (2) Nausea and vomiting: (3) Hematoma of right lower leg: PLAN: Plan Right lower extremity cellulitis with concern for infected hematoma of the right knee -Blood cultures negative at 48 hours -Initial Gram stain from wound culture is negative thus far -Fungal smear is pending -Continue vancomycin and Zosyn -ID managing antibiotics -Dissipate that if cultures remain negative may be able to discontinue antibiotics altogether or complete a short course of orals -Evacuation of hematoma is completed however wound closure was not possible due to the size and wound VAC placed -Plan is for taking her back to the OR on Wednesday for attempted closure and if not possible will repeat wound VAC -Infectious disease following-appreciate input -Cardiology has evaluated the patient and cleared her for surgery Large right knee hematoma -Hematoma was evacuated on 04/13/2023 -Continue to hold Xarelto until okay to reinitiate per orthopedic surgery -Last dose was 04/05/2023 Debility/fall/generalized weakness -PT/OT consultation, weightbearing per orthopedic surgery -Plan is to return back to [facility] once appropriate medically for discharge -Case management/social work following Acute on chronic anemia -Patient with chronic anemia appearing to have his hemoglobin at baseline between 8 and 10 -Hemoglobin 7.8 this morning with repeat occurring this afternoon -Was transfused 2 units packed red blood cells at last hospitalization -Repeat CBC in a.m. -Transfuse for hemoglobin less than 7 or precipitous bleeding CHRISTIAN on CKD stage II -Baseline serum creatinine appears to be between 0.9 and 1.1 -Serum creatinine is improved and is now down to 1.18 -Continue to monitor -Hold home Bumex Paroxysmal atrial fibrillation -Continue home amiodarone -Xarelto on hold due to bleeding -Currently in normal sinus rhythm CAD/HTN/HPL -Status post quadruple bypass in 2017 -Continue home fenofibric acid -Patient does not take beta-brandon or LAUREL/ARB KASANDRA -Patient does not tolerate CPAP -Is untreated at baseline -Encouraged outpatient follow-up DM-2 -Hold oral regimen -Continue basal insulin 30 units nightly -Suspect a.m. elevation is due to stress response -Hemoglobin A1c on 04/13/2023 was 6.9 so it appears that she is very well controlled on her baseline home regimen however her anemia could complicate the interpretation of this making her hemoglobin A1c lower than actually has been -Continue prandial insulin scheduled -SSI -Cardiac/carb controlled diet -Accu-Chek as ordered DVT prophylaxis -SCDs with recent large hematoma CODE STATUS Full code Charges/Coding Visit Charges Inpatient E&M: 29599 Subs Hosp L2
[2023-04-14 11:33] LABS: Bedside Glucose 275 mg/dL (74-106)
[2023-04-14 12:17] LABS: Hemoglobin 8.6 g/dL (12.0-15.0)
--- NOTE | 2023-04-14 12:51 | PCM.PN.ID ---
Physical Exam Narrative Feeling ok, leg sore, wound vac in place, no fever Const alert and no apparent distress Resp normal air movement and clear to auscultation bilaterally Cardio regular rate and regular rhythm GI soft to palpation, non-tender and non-distended Extremity General Extremity: edema Skin Skin Narrative: R lower leg with wound vac, slightly faded redness ID ID: Route of nutrition/ use of supplements: [] Nutritional Intake: [] IV Site: [] Mccann Catheter: [] Assessment & Plan Assessment/Plan (1) Cellulitis of right lower extremity: PLAN: OR 04/13/[address] Gallegos for hematoma; surg cx pending, gram stain showed no wbc or bacteria. Sx improving, on vanc/ceftriaxone. Had been on bactrim/keflex prior to admit. Will follow, d/w Dr. Julio (2) Hematoma of right lower leg:
--- NOTE | 2023-04-14 12:59 | PCM.PN.ORT ---
Subjective Subjective Seen and examined. Doing well pain controlled no fevers chills nausea vomiting shortness of breath or chest pain. Objective Data Objective Data Vital Signs: Vital Signs Temp Pulse Resp BP Pulse Ox O2 Del Method O2 Flow Rate 97.9 F 61 18 135/58 H 100 Room Air 2 04/14/23 09:24 04/14/23 09:24 04/14/23 09:24 04/14/23 09:24 04/14/23 09:24 04/14/23 09:37 04/13/23 18:40 Oxygen Flow Rate (L/min) 2 Oxygen Delivery Method Room Air Weight: 319 lb 10.724 oz Body Mass Index (BMI) 48.4 Intake & Output: Intake and Output for Last 24 Hours 04/12/23 04/13/23 04/14/23 23:59 23:59 23:59 Intake Total 1709 / 1709 1665 / 2065 1100 / 1100 Output Total 1050 / 1050 1300 / 2050 1350 / 1350 Balance 659 / 659 365 / 15 -250 / -250 Lab / Micro Data 04/14/23 12:09 04/14/23 06:25 Labs: Laboratory Results - last 24 hr 04/13/23 06:50: Diff Path Review Reviewed 04/13/23 16:06: POC Glucose 250 H 04/13/23 21:04: POC Glucose 264 H 04/14/23 00:10: POC Glucose 281 H 04/14/23 06:25: WBC 4.2 L, RBC 2.71 L, Hgb 7.8 L, Hct 25.9 L, MCV 95.6, MCH 28.8, MCHC 30.1 L, RDW Std Deviation 53.0 H, RDW Coeff of Kevyn 15.3 H, Plt Count 235, MPV 10.8, Immature Gran % (Auto) 0.700, Neut % (Auto) 71.2 H, Lymph % (Auto) 11.2 L, [place] % (Auto) 12.8 H, Eos % (Auto) 3.1, Baso % (Auto) 1.0, Absolute Neuts (auto) 3.0, Absolute Lymphs (auto) 0.47 L, Nucleated RBC % 0, Differential Comment SCANNED, Diff Path Review January, Sodium 138, Potassium 5.2 H, Chloride 111 H, Carbon Dioxide 24.0, Anion Gap 3 L, BUN 19 H, Creatinine 1.18 H, Estim Creat Clear Calc 43.47, Est GFR (MDRD) Af Amer 58 L, Est GFR (MDRD) Non-Af 48 L, BUN/Creatinine Ratio 16.1, Glucose 278 H, Calcium 8.5 04/14/23 06:35: POC Glucose 257 H 04/14/23 08:05: POC Glucose 247 H 04/14/23 11:12: POC Glucose 275 H 04/14/23 12:09: Hgb 8.6 L Micro: Microbiology 04/13/23 16:00 Wound Drainage - Knee Gram Stain - Final 04/13/23 16:00 Wound Drainage - Knee Wound Culture - Preliminary No growth-Final to follow 04/11/23 18:51 Blood Culture (Wb) - Anticubital Right Blood Culture - Preliminary No growth in 48 hours. 04/11/23 18:52 Blood Culture (Wb) - Left Hand Blood Culture - Preliminary No growth in 48 hours. Physical Exam Const alert, oriented x3 and no apparent distress Extremity Extremity Narrative: Wound VAC with good seal skin edges seem viable erythema from cellulitis is down. Neurovascular intact compartment soft Assessment & Plan Assessment/Plan (1) Hematoma of right lower leg: (2) Cellulitis of right lower extremity: PLAN: Plan Status post open evacuation of hematoma right knee and wound VAC placement 04/13/2023 Skin edges appear viable. Plan for OR 04/16/2023 around noon for primary closure and application of incisional wound VAC versus replacement of wound VAC dressing. Continue current antibiotic regiment, will follow infectious disease recommendations, cultures pending from OR but will likely have no growth considering antibiotic's on board no clinical sign of abscess.
[2023-04-14] MEDS: Insulin Lispro 100 UNIT/ML INSULN.PEN 25 UNIT SC (16:53)
[2023-04-14] MEDS: Juven (unflavored) Packet 1 PACKET PO (16:53)
[2023-04-14 17:15] LABS: Bedside Glucose 323 mg/dL (74-106)
[2023-04-14 22:04] LABS: Vancomycin, Trough Level 21.2 ug/mL (5.0-15.0)
--- NOTE | 2023-04-14 22:18 | PCM.RX.CS ---
Consult Antibiotic Management Pharmacy has been consulted to manage selected antiobiotic: Vancomycin Type of Intervention Type of Consult: Follow-up Suspected Infection Suspected Infection: Skin/Soft tissue Labs Labs: Sodium 138 mmol/L (136-145) 04/14/23 06:25 Potassium 5.2 mmol/L (3.5-5.1) H 04/14/23 06:25 Chloride 111 mmol/L (98-107) H 04/14/23 06:25 Carbon Dioxide 24.0 mmol/L (21.0-32.0) 04/14/23 06:25 Anion Gap 3 (5-15) L 04/14/23 06:25 BUN 19 mg/dL (7-18) H 04/14/23 06:25 Creatinine 1.18 mg/dL (0.55-1.02) H 04/14/23 06:25 Est GFR (MDRD) Af Amer 58 mL/min (>60) L 04/14/23 06:25 Est GFR (MDRD) Non-Af 48 mL/min (>60) L 04/14/23 06:25 BUN/Creatinine Ratio 16.1 RATIO (10-20) 04/14/23 06:25 Glucose 278 mg/dL (74-106) H 04/14/23 06:25 Vancomycin Trough 21.2 ug/mL (5.0-15.0) H 04/14/23 21:20 Microbiology Microbiology: Microbiology 04/13/23 16:00 Wound Drainage - Knee Gram Stain - Final 04/13/23 16:00 Wound Drainage - Knee Wound Culture - Preliminary No growth-Final to follow 04/11/23 18:51 Blood Culture (Wb) - Anticubital Right Blood Culture - Preliminary No growth in 48 hours. 04/11/23 18:52 Blood Culture (Wb) - Left Hand Blood Culture - Preliminary No growth in 48 hours. Dosing Weight Weight used for dosin kg Estimated Creatinine Clearance Estimated Creatinine Clearance: 66 Goal Trough Goal Trough: 15-20 mcg/mL Pharmacy Plan for Drug Dosing Pharmacy Plan for Drug Dosing: Vancomycin trough level of 21.2 was above the target range of 15-20. However, the level was drawn just 10.3hrs post-dose, and the SCr drawn today shows improvement. So will continue dosing at 1000mg q12h, and will re-draw a trough in two days. Pharmacy Service will continue to monitor and adjust dosing as required. Follow-Up Labs Follow-Up Labs: Trough: Vancomycin Date/Time Labs Ordered Labs to be done on [date and time ordered]: 04/16/23 @7019
[2023-04-14] MEDS: Atorvastatin Calcium 40 MG Tablet PO (22:46)
[2023-04-14] MEDS: Acetaminophen 325 MG Tablet 650 MG PO (23:05)
[2023-04-14 23:41] LABS: Bedside Glucose 143 mg/dL (74-106)
[2023-04-15 04:07] VITALS: BMI 48.6
[2023-04-15 06:19] LABS: Absolute Lymphocyte Count 0.64 X10^3/uL (0.83-4.51); Absolute Neutrophil Count 2.7 X10^3/uL (2.0-7.7); Basophil# 0.04 X10^3/uL; Eosinophil# 0.15 X10^3/uL; Eosinophils% 3.6 % (0-5); Hematocrit 23.5 % (37-47); Hemoglobin 7.3 g/dL (12.0-15.0); Lymphocyte # 0.64 X10^3/ul (0.83-4.51); Lymphocyte % 15.3 % (19-41); Mean Corp Hgb Conc 31.1 g/dL (32-36); Mean Corpuscular Volume 93.3 fL (81-99); Mean Platelet Vol. 10.3 fl (6.2-12.0); Monocyte# 0.58 X10^3/uL; Monocyte% 13.9 % (0-10); NRBC Flagged by Analyzer 0 % (0-5); Neutrophil # 2.72 X10^3/uL (2.7-7.7); Neutrophil % 65.2 % (47-70); Platelet Count 248 K/mm3 (150-450); RBC Distribution Width CV 15.4 % (11.6-14.6); RBC Distribution Width SD 51.8 fl (35.1-43.9); Red Blood Count 2.52 M/mm3 (4.2-5.4); White Blood Count 4.2 K/mm3 (4.4-11.0)
[2023-04-15] MEDS: Levothyroxine 100 MCG Tablet 200 MCG PO (06:40)
[2023-04-15 06:43] LABS: Anion Gap 4 (5-15); BUN 20 mg/dL (7-18); BUN/Creat Ratio 19.4 RATIO (10-20); Calcium,Total 8.2 mg/dL (8.5-10.1); Chloride 110 mmol/L (98-107); Creatinine, Serum 1.03 mg/dL (0.55-1.02); EST Glomerular Filtration Rate 56 mL/min (>60); Est Glom Filt Rate - Afr Amer 68 mL/min (>60); Glucose 157 mg/dL (74-106); Potassium 4.5 mmol/L (3.5-5.1); Sodium Level 137 mmol/L (136-145)
[2023-04-15] MEDS: Insulin Lispro 100 UNIT/ML INSULN.PEN SC ×3 (06:44→16:26)
[2023-04-15 06:48] VITALS: BP 146/61; PULSE 53; RESP 16; TEMP 36.6; O2SAT 98
[2023-04-15 06:57] VITALS: O2SAT 97
[2023-04-15 07:13] LABS: Bedside Glucose 152 mg/dL (74-106)
[2023-04-15 08:15] VITALS: BP 144/68; PULSE 68; RESP 16; TEMP 36.6; O2SAT 99
[2023-04-15] MEDS: Insulin Lispro 100 UNIT/ML INSULN.PEN 12 UNIT SC (08:40)
[2023-04-15] MEDS: prednisoLONE eye drops (5 mL) 1 DROP OPTH.BTL 1 DRP OPHTHALMIC ×2 (08:41→20:33)
[2023-04-15] MEDS: Menthol/Lanolin/Calamine/Znox 113 GM Tube 1 APPLIC TOPICAL ×2 (08:41→20:33)
[2023-04-15] MEDS: Juven (unflavored) Packet 1 PACKET PO ×2 (08:41→16:27)
[2023-04-15] MEDS: Amiodarone 200 MG Tablet 100 MG PO (08:41)
[2023-04-15] MEDS: Nystatin Powder 15gm Bottle 1 APPLIC TOPICAL ×2 (08:42→20:32)
[2023-04-15] MEDS: Fenofibrate 145 MG Tablet PO (08:43)
[2023-04-15 09:21] LABS: Pathologist Review Reviewed
[2023-04-15] MEDS: Vancomycin IV 1,000 MG/200 ML BAG 200 MG IV ×2 (09:37→22:05)
--- NOTE | 2023-04-15 10:00 | PCM.PN.ID ---
Physical Exam Narrative Feeling ok, mild leg pain, no fever Const alert and no apparent distress Resp normal air movement and clear to auscultation bilaterally Cardio regular rate and regular rhythm GI soft to palpation, non-tender and non-distended Skin Skin Narrative: RLE less red, wound vac in place ID ID: Route of nutrition/ use of supplements: [] Nutritional Intake: [] IV Site: [] Mccann Catheter: [] Assessment & Plan Assessment/Plan (1) Cellulitis of right lower extremity: PLAN: OR 04/13/[address] Gallegos for hematoma; surg cx neg so far, gram stain showed no wbc or bacteria. Sx improving. Leg much less red, on vanc/ceftriaxone. Had been on bactrim/keflex prior to admit. OR planned for tomorrow. Plan for discharge will be 5 more days po keflex. Will follow (2) Hematoma of right lower leg:
[2023-04-15] MEDS: Insulin Lispro 100 UNIT/ML INSULN.PEN 18 UNIT SC (11:32)
[2023-04-15 11:51] LABS: Bedside Glucose 321 mg/dL (74-106)
--- NOTE | 2023-04-15 12:26 | PN.HOSP_ITS ---
Reason for Visit Reason for Visit: Right leg hematoma Subjective Subjective No issues overnight. Pain is well controlled. Plan for OR again tomorrow to try to close the wound. Patient denies any acute needs at this time. Objective Data Objective Data Vital Signs: Vital Signs Temp Pulse Resp BP Pulse Ox O2 Del Method O2 Flow Rate 97.8 F 53 L 16 146/61 H 97 Room Air 2 04/15/23 06:48 04/15/23 06:48 04/15/23 06:48 04/15/23 06:48 04/15/23 06:57 04/15/23 06:57 04/13/23 18:40 Oxygen Flow Rate (L/min) 2 Oxygen Delivery Method Room Air Weight: 145.5 kg Body Mass Index (BMI) 48.6 Intake & Output: Intake and Output for Last 24 Hours 04/13/23 04/14/23 04/15/23 23:59 23:59 23:59 Intake Total 1665 / 2065 1650 / 1850 550 / 550 Output Total 1300 / 2050 1350 / 1500 310 / 310 Balance 365 / 15 300 / 350 240 / 240 Lab / Micro Data 04/15/23 06:10 04/15/23 06:10 Labs: Laboratory Results - last 24 hr 04/14/23 06:25: Diff Path Review Reviewed 04/14/23 16:51: POC Glucose 323 H 04/14/23 21:20: Vancomycin Trough 21.2 H 04/14/23 22:44: POC Glucose 143 H 04/15/23 06:10: WBC 4.2 L, RBC 2.52 L, Hgb 7.3 L, Hct 23.5 L, MCV 93.3, MCH 29.0, MCHC 31.1 L, RDW Std Deviation 51.8 H, RDW Coeff of Kevyn 15.4 H, Plt Count 248, MPV 10.3, Immature Gran % (Auto) 1.000 H, Neut % (Auto) 65.2, Lymph % (Auto) 15.3 L, [place] % (Auto) 13.9 H, Eos % (Auto) 3.6, Baso % (Auto) 1.0, Absolute Neuts (auto) 2.7, Absolute Lymphs (auto) 0.64 L, Nucleated RBC % 0, Sodium 137, Potassium 4.5, Chloride 110 H, Carbon Dioxide 23.0, Anion Gap 4 L, BUN 20 H, Creatinine 1.03 H, Estim Creat Clear Calc 49.80, Est GFR (MDRD) Af Amer 68, Est GFR (MDRD) Non-Af 56 L, BUN/Creatinine Ratio 19.4, Glucose 157 H, Calcium 8.2 L 04/15/23 06:43: POC Glucose 152 H 04/15/23 11:31: POC Glucose 321 H Micro: Microbiology 04/13/23 16:00 Wound Drainage - Knee Gram Stain - Final 04/13/23 16:00 Wound Drainage - Knee Wound Culture - Preliminary No growth-Final to follow 04/11/23 18:51 Blood Culture (Wb) - Anticubital Right Blood Culture - Preliminary No growth in 48 hours. 04/11/23 18:52 Blood Culture (Wb) - Left Hand Blood Culture - Preliminary No growth in 48 hours. Physical Exam Const alert, oriented x3, no apparent distress and well nourished Constitutional Narrative: Morbidly obese, older, white female, sitting up in a chair at the bedside with her legs elevated, watching television, appears comfortable at this time, patient is nontoxic and well-nourished appearing HEENT head/scalp atraumatic and moist oral mucous membranes Resp normal respiratory effort, no retractions, no use of accessory muscles and clear to auscultation bilaterally Auscultation: Negative for rales, rhonchi or wheezes Cardio regular rate, regular rhythm, S1 normal heart sound, S2 normal heart sound, no rub, no gallops and no clicks; Negative for no murmurs Cardio Narrative: 3 out of 6 systolic murmur loudest at right upper sternal border GI normal to inspection, nondistended, normoactive bowel sounds, soft to palpation and non-tender Extremity Extremity Narrative: Right lower extremity with wound VAC in place edema is much better, erythema is about the same and probably related to her bruising Neuro oriented x3 and no focal motor deficits Speech: speech normal Psych affect normal Psych Narrative: Patient is very pleasant, interacts appropriately Assessment & Plan Assessment/Plan (1) Cellulitis of right lower extremity: (2) Nausea and vomiting: (3) Hematoma of right lower leg: PLAN: Plan Right lower extremity cellulitis with concern for infected hematoma of the right knee -Blood cultures with no growth to date -Initial Gram stain from wound culture is negative for white cells or bacteria -Fungal smear is pending -Continue vancomycin and Zosyn for now with plans of 5 more days of p.o. Keflex at discharge per ID documentation -Evacuation of hematoma is completed on 04/13/2023 however wound closure was not possible due to the size and wound VAC placed -Plan for OR tomorrow for attempted closure -Infectious disease following-appreciate input Large right knee hematoma -Hematoma was evacuated on 04/13/2023 -Continue to hold Xarelto until okay to reinitiate per orthopedic surgery -Last dose was 04/05/2023 Debility/fall/generalized weakness -PT/OT following, weightbearing per orthopedic surgery -Plan is to return back to [facility] versus TCU once appropriate medically for discharge -Case management/social work following Acute on chronic anemia -Patient with chronic anemia appearing to have his hemoglobin at baseline between 8 and 10 -Repeat hemoglobin this afternoon is stable at 7.9 -Was transfused 2 units packed red blood cells at last hospitalization but no transfusions required this hospitalization -Repeat CBC in a.m. -Transfuse for hemoglobin less than 7 or precipitous bleeding CHRISTIAN on CKD stage II -CHRISTIAN has resolved -Baseline serum creatinine appears to be between 0.9 and 1.1 -Serum creatinine is improved and is now down to 1.03 -Continue to monitor -Restart home Bumex and lisinopril Paroxysmal atrial fibrillation -Continue home amiodarone -Xarelto on hold due to bleeding -Currently in normal sinus rhythm CAD/HTN/HPL -Status post quadruple bypass in 2017 -Continue home fenofibric acid -Restart home Bumex -Restart home lisinopril KASANDRA -Patient does not tolerate CPAP -Is untreated at baseline -Encouraged outpatient follow-up DM-2 -Hold oral regimen -Continue basal insulin 30 units nightly -A.m. blood sugars better today and down to 157--> yesterday's hyperglycemia with fasting blood sugar greater than 200 was likely stress response after surgery -Hemoglobin A1c on 04/13/2023 was 6.9 so it appears that she is very well c ontrolled on her baseline home regimen however her anemia could complicate the interpretation of this making her hemoglobin A1c lower than actually has been -Continue prandial insulin scheduled -SSI -Cardiac/carb controlled diet -Accu-Chek as ordered DVT prophylaxis -SCDs with recent large hematoma CODE STATUS Full code Charges/Coding Visit Charges Inpatient E&M: 97354 Subs Hosp L2
[2023-04-15 12:33] LABS: Hemoglobin 7.9 g/dL (12.0-15.0)
[2023-04-15] MEDS: Glycerin/Hypromellose/PEG400 15 ml Bottle 1 DRP EACH EYE (14:19)
[2023-04-15] MEDS: Bumetanide 0.5 MG Tablet PO (14:19)
[2023-04-15] MEDS: Lisinopril 10 MG Tablet PO (14:19)
[2023-04-15 14:28] VITALS: BP 133/74; PULSE 59; RESP 16; TEMP 36.5; O2SAT 97
--- NOTE | 2023-04-15 14:40 | PCM.PN.ORT ---
Subjective Subjective Upon entering the room the patient is seated resting comfortably. Patient states that she has been doing well overall. Her pain is under control. She denies any chest pain, shortness of breath, fevers, chills, nausea, vomiting or any other concerning signs or symptoms. She has been working with physical therapy. Objective Data Objective Data Vital Signs: Vital Signs Temp Pulse Resp BP Pulse Ox O2 Del Method O2 Flow Rate 97.7 F L 59 L 16 133/74 H 97 Room Air 2 04/15/23 14:28 04/15/23 14:28 04/15/23 14:28 04/15/23 14:28 04/15/23 14:28 04/15/23 14:28 04/13/23 18:40 Oxygen Flow Rate (L/min) 2 Oxygen Delivery Method Room Air Weight: 320 lb 12.361 oz Body Mass Index (BMI) 48.6 Intake & Output: Intake and Output for Last 24 Hours 04/13/23 04/14/23 04/15/23 23:59 23:59 23:59 Intake Total 1665 / 2065 1650 / 1850 550 / 550 Output Total 1300 / 2050 1350 / 1500 310 / 310 Balance 365 / 15 300 / 350 240 / 240 Lab / Micro Data 04/15/23 12:20 04/15/23 06:10 Labs: Laboratory Results - last 24 hr 04/14/23 06:25: Diff Path Review Reviewed 04/14/23 16:51: POC Glucose 323 H 04/14/23 21:20: Vancomycin Trough 21.2 H 04/14/23 22:44: POC Glucose 143 H 04/15/23 06:10: WBC 4.2 L, RBC 2.52 L, Hgb 7.3 L, Hct 23.5 L, MCV 93.3, MCH 29.0, MCHC 31.1 L, RDW Std Deviation 51.8 H, RDW Coeff of Kevyn 15.4 H, Plt Count 248, MPV 10.3, Immature Gran % (Auto) 1.000 H, Neut % (Auto) 65.2, Lymph % (Auto) 15.3 L, [place] % (Auto) 13.9 H, Eos % (Auto) 3.6, Baso % (Auto) 1.0, Absolute Neuts (auto) 2.7, Absolute Lymphs (auto) 0.64 L, Nucleated RBC % 0, Sodium 137, Potassium 4.5, Chloride 110 H, Carbon Dioxide 23.0, Anion Gap 4 L, BUN 20 H, Creatinine 1.03 H, Estim Creat Clear Calc 49.80, Est GFR (MDRD) Af Amer 68, Est GFR (MDRD) Non-Af 56 L, BUN/Creatinine Ratio 19.4, Glucose 157 H, Calcium 8.2 L 04/15/23 06:43: POC Glucose 152 H 04/15/23 11:31: POC Glucose 321 H 04/15/23 12:20: Hgb 7.9 L Micro: Microbiology 04/13/23 16:00 Wound Drainage - Knee Gram Stain - Final 04/13/23 16:00 Wound Drainage - Knee Wound Culture - Preliminary No growth-Final to follow 04/11/23 18:51 Blood Culture (Wb) - Anticubital Right Blood Culture - Preliminary No growth in 48 hours. 04/11/23 18:52 Blood Culture (Wb) - Left Hand Blood Culture - Preliminary No growth in 48 hours. Physical Exam Const alert, oriented x3 and no apparent distress General Appearance: cooperative Extremity Extremity Narrative: Upon inspection of the right lower leg there is a wound VAC in place with good seal. Skin edges still appear viable. Still some erythema from the cellulitis. Patient is able to plantarflex, dorsiflex and wiggle her toes. Assessment & Plan Assessment/Plan (1) Hematoma of right lower leg: (2) Cellulitis of right lower extremity: PLAN: Plan Patient was seen and examined today and is doing well. Postop day 2 of an evacuation of the hematoma with an application of a wound VAC, DOS: 04/13/2023. The plan is to go back to the OR tomorrow, 04/16/2023 around noon for primary closure and application of an incisional wound VAC versus replacement of wound VAC dressing. Will continue with current antibiotic regimen, follow infectious disease recommendations. The patient's questions were answered. She is in agreement with the plan.
[2023-04-15] MEDS: Insulin Lispro 100 UNIT/ML INSULN.PEN 25 UNIT SC (16:26)
[2023-04-15 16:47] LABS: Bedside Glucose 241 mg/dL (74-106)
[2023-04-15] MEDS: Acetaminophen 325 MG Tablet 650 MG PO ×2 (19:55→23:57)
[2023-04-15 20:31] VITALS: BP 137/53; PULSE 57; RESP 16; TEMP 36.9; O2SAT 100
[2023-04-15] MEDS: Atorvastatin Calcium 40 MG Tablet PO (20:34)
[2023-04-15] MEDS: oxyCODONE 5 MG Tablet PO (22:15)
[2023-04-15 22:29] LABS: Bedside Glucose 77 mg/dL (74-106)
[2023-04-16] VITALS (7 sets, daily range): BP systolic 127–173; BP diastolic 47–59; PULSE 51–97; RESP 16–18; TEMP 36.4–37.1; O2SAT 93–100; BMI 48.4
[2023-04-16] MEDS: Levothyroxine 100 MCG Tablet 200 MCG PO (06:18)
[2023-04-16 06:57] LABS: Bedside Glucose 155 mg/dL (74-106)
[2023-04-16] MEDS: Glycerin/Hypromellose/PEG400 15 ml Bottle 1 DRP EACH EYE ×2 (08:00→23:20)
[2023-04-16] MEDS: Menthol/Lanolin/Calamine/Znox 113 GM Tube 1 APPLIC TOPICAL ×2 (08:00→23:20)
[2023-04-16] MEDS: prednisoLONE eye drops (5 mL) 1 DROP OPTH.BTL 1 DRP OPHTHALMIC ×2 (08:01→23:22)
[2023-04-16] MEDS: Nystatin Powder 15gm Bottle 1 APPLIC TOPICAL ×2 (08:01→23:20)
--- NOTE | 2023-04-16 10:07 | CASEMGMT ---
Addendum entered by Erinn Kelly 04/16/23 15:35: Social Work SW updated Staci in TCU that surgery is complete and pt had therapy today. Requested precert be started. Green sheet on pt chart in the event precert is obtained over the weekend. Quite possible precert will not be returned until Wednesday. Plan: TCU, pending [facility] Original Note: Social Work SW spoke with Staci in TCU and they are able to accept pt. Pt and dgt updated that both [facility] and TCU can accept. Pt preference is TCU. Surgery planned for today and pt will need seen by therapy post surgery before precert can be started. Precert will be started on Wednesday for admission to TCU. Pt and dgt agreeable to d/c to TCU. DC speech language pathology assistant to update [facility]. Plan: TCU, pending [facility]
[2023-04-16] MEDS: Vancomycin IV 1,000 MG/200 ML BAG 200 MG IV (10:19)
--- NOTE | 2023-04-16 10:26 | CASEMGMT ---
Discharge Planning [facility] notified via [facility] that patient will not be returning to them upon discharge. Josie Rubin, Discharge Planning Asst.
[2023-04-16 11:49] LABS: Bedside Glucose 210 mg/dL (74-106)
--- NOTE | 2023-04-16 15:10 | OP.PCM_ITS ---
Operative Report Date of Procedure: 04/16/23 Preoperative diagnosis: right knee wound with wound vac secondary to hematoma Postoperative diagnosis: same Procedure: wound vac change Anesthesia: general LMA EBL: 5 cc Condition: stable to PACU Indication for procedure: 72 y/o obese female with multiple medical comorbidities who was on [facility] Xarelto 20mg had ground level fall onto right knee sustaining large hematoma of the anterior knee. she did have CT scan demonstrating the extent / size. she subsequently developed cellulitis of the right lower extremity which is being treated initially with IV and now PO antibiotics managed by infectious disease. I did preform evacuation of hematoma on 04/13/23 however do to the significant soft tissue void a wound vac was placed. intentions today were primary closure vs replacement of wound vac. Risk benefits and alternatives were reviewed including risk of bleeding infection nerve, artery, bone, tissue damage, blood clot need for further surgery and continued pain, wound healing complications , possible need for skin grafting or further debridements. Procedure: patient was meet in the pre-operative holding area and the operative extremity was Identified by both patient and physician and marked. she was brought back to the operating room and positioned in the supine position. anesthesia was started. she was prepped and draped in the usual sterile fashion and a time-out was called to ensure the proper patient and procedure were noted. the wound vac was removed and prepped with a betadine scrub and paint. the wound was throughly irrigated with a pulse-lavage irrigation system and a betadine diluted rinse was used. we then irrigated again. there was no further hematoma to remove and skin edges seemed viable there was no sign of infection. there was undermining cavitaion in the upper medial and lateral edges of the wound from the previous hematoma extending about 5.5 cm in both directions. i was able to approximate the upper and lower poles of the incision with some jaclyn however the mid portion wound not come together. I therefore placed a black sponge into the wound and attached the wound vac in standard technique. the wound vac kept powering down so we had to get a new device. there was no leak and seal check was good. drapes were removed and patient was brought back to the PACU in stable condition. I did speak with our wound care team and Dr. Bentley about taking over wound vac changes and management of the wound from this point forward.
--- NOTE | 2023-04-16 15:27 | PCM.PN.ORT ---
Subjective Subjective patient seen in the pacu . pain controlled. no complaints. Objective Data Objective Data Vital Signs: Vital Signs Temp Pulse Resp BP Pulse Ox O2 Del Method O2 Flow Rate 97.6 F L 55 L 18 173/59 H 93 Room Air 2 04/16/23 15:16 04/16/23 15:16 04/16/23 15:16 04/16/23 15:16 04/16/23 15:16 04/16/23 15:16 04/13/23 18:40 Oxygen Flow Rate (L/min) 2 Oxygen Delivery Method Room Air Weight: 319 lb 10.724 oz Body Mass Index (BMI) 48.4 Intake & Output: Intake and Output for Last 24 Hours 04/14/23 04/15/23 04/16/23 23:59 23:59 23:59 Intake Total 1650 / 1850 1520 / 1820 765 / 765 Output Total 1350 / 1500 310 / 310 200 / 200 Balance 300 / 350 1210 / 1510 565 / 565 Lab / Micro Data 04/15/23 12:20 04/15/23 06:10 Labs: Laboratory Results - last 24 hr 04/15/23 16:25: POC Glucose 241 H 04/15/23 22:09: POC Glucose 77 04/16/23 06:16: POC Glucose 155 H 04/16/23 11:16: POC Glucose 210 H Micro: Microbiology 04/13/23 16:00 Wound Drainage - Knee Gram Stain - Final 04/13/23 16:00 Wound Drainage - Knee Wound Culture - Final No growth aerobically. 04/13/23 16:00 Wound Drainage - Knee Anaerobic Culture - Preliminary No growth in 48 hours. 04/11/23 18:51 Blood Culture (Wb) - Anticubital Right Blood Culture - Preliminary No growth in 48 hours. 04/11/23 18:52 Blood Culture (Wb) - Left Hand Blood Culture - Preliminary No growth in 48 hours. Physical Exam Extremity normal capillary refill Extremity Narrative: wound vac on with good seal . no leak. compartments soft. NVI Assessment & Plan Assessment/Plan (1) Open wound of knee: QUALIFIERS: Encounter type: subsequent encounter Laterality: right Qualified Code(s): S81.001D - Unspecified open wound, right knee, subsequent encounter PLAN: Plan s/p right knee Hematoma with evacuation and placement of wound vac wound care consulted will preform wound vac change Q3 days and will follow to the TCU dr. smith (plastic surgery) consulted , I did speak with him. continue antibiotic regimen. PT/OT WBAT encourage knee ROM and ambulation
--- NOTE | 2023-04-16 15:53 | PN.HOSP_ITS ---
Reason for Visit Reason for Visit: Worsening right lower extremity redness Subjective Subjective Patient awaiting surgery at the time my evaluation. Plan is for TCU at discharge and pre-CERT will be initiated after she sees therapy after surgery today. Objective Data Objective Data Vital Signs: Vital Signs Temp Pulse Resp BP Pulse Ox O2 Del Method O2 Flow Rate 97.6 F L 55 L 18 173/59 H 93 Room Air 2 04/16/23 15:16 04/16/23 15:16 04/16/23 15:16 04/16/23 15:16 04/16/23 15:16 04/16/23 15:16 04/13/23 18:40 Oxygen Flow Rate (L/min) 2 Oxygen Delivery Method Room Air Weight: 145 kg Body Mass Index (BMI) 48.4 Intake & Output: Intake and Output for Last 24 Hours 04/14/23 04/15/23 04/16/23 23:59 23:59 23:59 Intake Total 1650 / 1850 1520 / 1820 765 / 765 Output Total 1350 / 1500 310 / 310 200 / 200 Balance 300 / 350 1210 / 1510 565 / 565 Lab / Micro Data 04/15/23 12:20 04/15/23 06:10 Labs: Laboratory Results - last 24 hr 04/15/23 16:25: POC Glucose 241 H 04/15/23 22:09: POC Glucose 77 04/16/23 06:16: POC Glucose 155 H 04/16/23 11:16: POC Glucose 210 H Micro: Microbiology 04/13/23 16:00 Wound Drainage - Knee Gram Stain - Final 04/13/23 16:00 Wound Drainage - Knee Wound Culture - Final No growth aerobically. 04/13/23 16:00 Wound Drainage - Knee Anaerobic Culture - Preliminary No growth in 48 hours. 04/11/23 18:51 Blood Culture (Wb) - Anticubital Right Blood Culture - Preliminary No growth in 48 hours. 04/11/23 18:52 Blood Culture (Wb) - Left Hand Blood Culture - Preliminary No growth in 48 hours. Physical Exam Const alert, oriented x3, no apparent distress and well nourished Constitutional Narrative: Morbidly obese, older, white female, sitting up in a chair at the bedside with her legs elevated, watching television, appears comfortable at this time, patient is nontoxic and well-nourished appearing, family at bedside HEENT head/scalp atraumatic and moist oral mucous membranes HEENT Narrative: Mallampati 3, no thrush Head and Scalp: normocephalic Resp normal respiratory effort, no retractions, no use of accessory muscles and clear to auscultation bilaterally Auscultation: Negative for rales, rhonchi or wheezes Cardio regular rate, regular rhythm, S1 normal heart sound, S2 normal heart sound, no rub, no gallops and no clicks; Negative for no murmurs Cardio Narrative: 3 out of 6 systolic murmur loudest at right upper sternal border GI normal to inspection, nondistended, normoactive bowel sounds, soft to palpation and non-tender Extremity Extremity Narrative: Right lower extremity with wound VAC in place edema is much better, ecchymosis/erythema seems to be retracting, pedal pulses are 2+, no cyanosis or clubbing Neuro oriented x3 and no focal motor deficits Speech: speech normal Psych affect normal Psych Narrative: Patient is very pleasant, interacts appropriately Assessment & Plan Assessment/Plan (1) Cellulitis of right lower extremity: (2) Nausea and vomiting: (3) Hematoma of right lower leg: PLAN: Plan Right lower extremity cellulitis with concern for infected hematoma of the right knee -Blood cultures with no growth to date -Surgical wound culture remains unremarkable -Fungal smear is pending -Continue vancomycin and Zosyn for now with plans of 5 more days of p.o. Keflex at discharge per ID documentation -Evacuation of hematoma is completed on 04/13/2023 however wound closure was not possible due to the size and wound VAC placed -OR today for attempted closure -Infectious disease following-appreciate input Large right knee hematoma -Hematoma was evacuated on 04/13/2023 -Continue to hold Xarelto until okay to reinitiate per orthopedic surgery -Last dose was 04/05/2023 Debility/fall/generalized weakness -PT/OT following, weightbearing per orthopedic surgery -Current plan is to transitional care unit once pre-CERT is obtained--> patient medically ready after surgery today -Case management/social work following Acute on chronic anemia -Patient with chronic anemia appearing to have his hemoglobin at baseline betwee n 8 and 10 -Repeat hemoglobin this afternoon is stable at 7.9 -Was transfused 2 units packed red blood cells at last hospitalization but no transfusions required this hospitalization -Repeat CBC in a.m. -Transfuse for hemoglobin less than 7 or precipitous bleeding CHRISTIAN on CKD stage II -CHRISTIAN has resolved -Baseline serum creatinine appears to be between 0.9 and 1.1 -Serum creatinine is improved and is now down to 1.03 -Continue to monitor -Continue home Bumex and lisinopril Paroxysmal atrial fibrillation -Continue home amiodarone -Xarelto on hold due to bleeding -Currently in normal sinus rhythm CAD/HTN/HPL -Status post quadruple bypass in 2017 -Continue home fenofibric acid -Restart home Bumex -Restart home lisinopril KASANDRA -Patient does not tolerate CPAP -Is untreated at baseline -Encouraged outpatient follow-up DM-2 -Hold oral regimen -Continue basal insulin 30 units nightly -A.m. blood sugars better today and down to 155 fasting -Hemoglobin A1c on 04/13/2023 was 6.9 so it appears that she is very well controlled on her baseline home regimen however her anemia could complicate the interpretation of this making her hemoglobin A1c lower than actually has been -Continue prandial insulin scheduled -SSI -Cardiac/carb controlled diet -Accu-Chek as ordered DVT prophylaxis -SCDs with recent large hematoma CODE STATUS Full code Charges/Coding Visit Charges Inpatient E&M: 60987 Subs Hosp L2
[2023-04-16] MEDS: Insulin Lispro 100 UNIT/ML INSULN.PEN SC (16:40)
[2023-04-16] MEDS: Insulin Lispro 100 UNIT/ML INSULN.PEN 25 UNIT SC (16:41)
[2023-04-16] MEDS: Juven (unflavored) Packet 1 PACKET PO (16:41)
[2023-04-16 17:00] LABS: Bedside Glucose 192 mg/dL (74-106)
--- NOTE | 2023-04-16 22:40 | PHA.PHARE_ITS ---
Consult Antibiotic Management Pharmacy has been consulted to manage selected antiobiotic: Vancomycin Type of Intervention Type of Consult: Follow-up Suspected Infection Suspected Infection: Skin/Soft tissue Labs Labs: Sodium 137 mmol/L (136-145) 04/15/23 06:10 Potassium 4.5 mmol/L (3.5-5.1) 04/15/23 06:10 Chloride 110 mmol/L (98-107) H 04/15/23 06:10 Carbon Dioxide 23.0 mmol/L (21.0-32.0) 04/15/23 06:10 Anion Gap 4 (5-15) L 04/15/23 06:10 BUN 20 mg/dL (7-18) H 04/15/23 06:10 Creatinine 1.03 mg/dL (0.55-1.02) H 04/15/23 06:10 Est GFR (MDRD) Af Amer 68 mL/min (>60) 04/15/23 06:10 Est GFR (MDRD) Non-Af 56 mL/min (>60) L 04/15/23 06:10 BUN/Creatinine Ratio 19.4 RATIO (10-20) 04/15/23 06:10 Glucose 157 mg/dL (74-106) H 04/15/23 06:10 Vancomycin Trough 27.0 ug/mL (5.0-15.0) H 04/16/23 21:22 Microbiology Microbiology: Microbiology 04/13/23 16:00 Wound Drainage - Knee Gram Stain - Final 04/13/23 16:00 Wound Drainage - Knee Wound Culture - Final No growth aerobically. 04/13/23 16:00 Wound Drainage - Knee Anaerobic Culture - Preliminary No growth in 48 hours. 04/11/23 18:51 Blood Culture (Wb) - Anticubital Right Blood Culture - Preliminary No growth in 48 hours. 04/11/23 18:52 Blood Culture (Wb) - Left Hand Blood Culture - Preliminary No growth in 48 hours. Dosing Weight Weight used for dosin kg Estimated Creatinine Clearance Estimated Creatinine Clearance: 75.1 Goal Trough Goal Trough: 15-20 mcg/mL Pharmacy Plan for Drug Dosing Pharmacy Plan for Drug Dosing: Vancomycin trough level was high at 27.0. This was drawn 11 hours post- dose.Renal function continues to improve (SCr 1.18 to 1.03), but level was still high. Will hold current dosing and draw a random vancomycin level in 12 hours. Further dosing will be determined from that result. Pharmacy Service will continue to monitor and adjust dosing as required. Follow-Up Labs Follow-Up Labs: Trough: Vancomycin (random) Date/Time Labs Ordered Labs to be done on [date and time ordered]: 04/17/23 @0930 random
[2023-04-16] MEDS: Atorvastatin Calcium 40 MG Tablet PO (23:21)
[2023-04-16] MEDS: Insulin Glargine-YFGN 100 UNIT/ML Pen 30 UNIT SC (23:25)
[2023-04-16 23:55] LABS: Bedside Glucose 151 mg/dL (74-106)
[2023-04-17 03:16] VITALS: BP 138/58; PULSE 51; RESP 18; TEMP 36.9; O2SAT 98
[2023-04-17 03:22] VITALS: BMI 48.4
[2023-04-17] MEDS: Levothyroxine 100 MCG Tablet 200 MCG PO (06:17)
[2023-04-17 06:37] LABS: Bedside Glucose 182 mg/dL (74-106)
[2023-04-17 06:51] LABS: Absolute Lymphocyte Count 0.86 X10^3/uL (0.83-4.51); Absolute Neutrophil Count 3.8 X10^3/uL (2.0-7.7); Basophil# 0.05 X10^3/uL; Basophil% 0.9 % (0-1); Eosinophil# 0.09 X10^3/uL; Eosinophils% 1.6 % (0-5); Hematocrit 24.3 % (37-47); Hemoglobin 7.3 g/dL (12.0-15.0); Lymphocyte # 0.86 X10^3/ul (0.83-4.51); Lymphocyte % 15.7 % (19-41); Mean Corpuscular Hgb 28.3 pg (27.0-32.0); Mean Corpuscular Volume 94.2 fL (81-99); Mean Platelet Vol. 10.5 fl (6.2-12.0); Monocyte% 10.9 % (0-10); NRBC Flagged by Analyzer 0 % (0-5); Neutrophil % 69.3 % (47-70); Platelet Count 325 K/mm3 (150-450); RBC Distribution Width CV 15.6 % (11.6-14.6); RBC Distribution Width SD 53.5 fl (35.1-43.9); Red Blood Count 2.58 M/mm3 (4.2-5.4); White Blood Count 5.5 K/mm3 (4.4-11.0)
[2023-04-17 07:16] VITALS: BP 143/47; PULSE 56; RESP 18; TEMP 36.6; O2SAT 100
[2023-04-17 07:17] LABS: Anion Gap 3 (5-15); BUN 22 mg/dL (7-18); BUN/Creat Ratio 18.8 RATIO (10-20); Calcium,Total 8.3 mg/dL (8.5-10.1); Chloride 106 mmol/L (98-107); Creatinine, Serum 1.17 mg/dL (0.55-1.02); EST Glomerular Filtration Rate 48 mL/min (>60); Est Glom Filt Rate - Afr Amer 58 mL/min (>60); Estimated Creatinine Clearance 43.84 ml/min; Glucose 174 mg/dL (74-106); Potassium 4.4 mmol/L (3.5-5.1); Sodium Level 135 mmol/L (136-145)
[2023-04-17] MEDS: Insulin Lispro 100 UNIT/ML INSULN.PEN 12 UNIT SC (08:25)
[2023-04-17] MEDS: Insulin Lispro 100 UNIT/ML INSULN.PEN SC ×3 (08:25→16:53)
[2023-04-17] MEDS: Glycerin/Hypromellose/PEG400 15 ml Bottle 1 DRP EACH EYE ×2 (08:26→22:19)
[2023-04-17] MEDS: Juven (unflavored) Packet 1 PACKET PO ×2 (08:26→16:53)
[2023-04-17] MEDS: Menthol/Lanolin/Calamine/Znox 113 GM Tube 1 APPLIC TOPICAL ×2 (08:27→22:20)
[2023-04-17] MEDS: Nystatin Powder 15gm Bottle 1 APPLIC TOPICAL ×2 (08:28→22:21)
[2023-04-17] MEDS: prednisoLONE eye drops (5 mL) 1 DROP OPTH.BTL 1 DRP OPHTHALMIC ×2 (08:29→22:24)
[2023-04-17] MEDS: Amiodarone 200 MG Tablet 100 MG PO (08:30)
[2023-04-17] MEDS: Bumetanide 0.5 MG Tablet PO (08:30)
[2023-04-17] MEDS: Fenofibrate 145 MG Tablet PO (08:30)
[2023-04-17] MEDS: Lisinopril 10 MG Tablet PO (08:30)
[2023-04-17 09:50] LABS: Vancomycin, Random Level 20.7 ug/mL (0.0-15.0)
[2023-04-17] MEDS: Cephalexin 500 MG Capsule PO ×2 (11:01→22:21)
[2023-04-17] MEDS: Insulin Lispro 100 UNIT/ML INSULN.PEN 18 UNIT SC (11:30)
[2023-04-17 11:46] LABS: Bedside Glucose 165 mg/dL (74-106)
--- NOTE | 2023-04-17 12:13 | PCM.RX.CS ---
Consult Antibiotic Management Pharmacy has been consulted to manage selected antiobiotic: Vancomycin Type of Intervention Type of Consult: Follow-up Suspected Infection Suspected Infection: Skin/Soft tissue Prior Doses of Antibiotics Prior Doses of Antibiotics Received/Current Regimen: Had been on 1000mg iv q12h. Labs Labs: Sodium 135 mmol/L (136-145) L 04/17/23 06:05 Potassium 4.4 mmol/L (3.5-5.1) 04/17/23 06:05 Chloride 106 mmol/L (98-107) 04/17/23 06:05 Carbon Dioxide 26.0 mmol/L (21.0-32.0) 04/17/23 06:05 Anion Gap 3 (5-15) L 04/17/23 06:05 BUN 22 mg/dL (7-18) H 04/17/23 06:05 Creatinine 1.17 mg/dL (0.55-1.02) H 04/17/23 06:05 Est GFR (MDRD) Af Amer 58 mL/min (>60) L 04/17/23 06:05 Est GFR (MDRD) Non-Af 48 mL/min (>60) L 04/17/23 06:05 BUN/Creatinine Ratio 18.8 RATIO (10-20) 04/17/23 06:05 Glucose 174 mg/dL (74-106) H 04/17/23 06:05 Vancomycin Trough 27.0 ug/mL (5.0-15.0) H 04/16/23 21:22 Random Vancomycin 20.7 ug/mL (0.0-15.0) H 04/17/23 09:05 Microbiology Microbiology: Microbiology 04/11/23 18:51 Blood Culture (Wb) - Anticubital Right Blood Culture - Final No growth in 5 days. 04/11/23 18:52 Blood Culture (Wb) - Left Hand Blood Culture - Final No growth in 5 days. 04/13/23 16:00 Wound Drainage - Knee Gram Stain - Final 04/13/23 16:00 Wound Drainage - Knee Wound Culture - Final No growth aerobically. 04/13/23 16:00 Wound Drainage - Knee Anaerobic Culture - Preliminary No growth in 48 hours. Dosing Weight Weight used for dosin kg Estimated Creatinine Clearance Estimated Creatinine Clearance: 66 ml/min Goal Trough Goal Trough: 15-20 mcg/mL Pharmacy Plan for Drug Dosing Pharmacy Plan for Drug Dosing: Random level this AM 20.7. This was ~23 hrs post last dose. Will resume vanco but at a reduced dose of 750mg iv q12h. Trough level before 4th dose of new regimen. Pharmacy Service will continue to monitor and adjust dosing as required. Follow-Up Labs Follow-Up Labs: Trough: Vancomycin (04.19.23 @0330)
--- NOTE | 2023-04-17 15:07 | PN.HOSP_ITS ---
Reason for Visit Reason for Visit: Right knee swelling and redness Subjective Subjective Patient feeling well. No issues overnight. Pain is well controlled. Objective Data Objective Data Vital Signs: Vital Signs Temp Pulse Resp BP Pulse Ox O2 Del Method O2 Flow Rate 97.8 F 56 L 18 143/47 H 100 Room Air 2 04/17/23 07:16 04/17/23 07:16 04/17/23 07:16 04/17/23 07:16 04/17/23 07:16 04/17/23 08:39 04/13/23 18:40 Oxygen Flow Rate (L/min) 2 Oxygen Delivery Method Room Air Weight: 145 kg Body Mass Index (BMI) 48.4 Intake & Output: Intake and Output for Last 24 Hours 04/15/23 04/16/23 04/17/23 23:59 23:59 23:59 Intake Total 1520 / 1820 815 / 815 100 / 100 Output Total 310 / 310 600 / 600 Balance 1210 / 1510 215 / 215 100 / 100 Lab / Micro Data 04/17/23 06:05 04/17/23 06:05 Labs: Laboratory Results - last 24 hr 04/16/23 16:39: POC Glucose 192 H 04/16/23 21:22: Vancomycin Trough 27.0 H 04/16/23 23:24: POC Glucose 151 H 04/17/23 06:05: WBC 5.5, RBC 2.58 L, Hgb 7.3 L, Hct 24.3 L, MCV 94.2, MCH 28.3, MCHC 30.0 L, RDW Std Deviation 53.5 H, RDW Coeff of Kevyn 15.6 H, Plt Count 325, MPV 10.5, Immature Gran % (Auto) 1.600 H, Neut % (Auto) 69.3, Lymph % (Auto) 15.7 L, [place] % (Auto) 10.9 H, Eos % (Auto) 1.6, Baso % (Auto) 0.9, Absolute Neuts (auto) 3.8, Absolute Lymphs (auto) 0.86, Nucleated RBC % 0, Sodium 135 L, Potassium 4.4, Chloride 106, Carbon Dioxide 26.0, Anion Gap 3 L, BUN 22 H, Creatinine 1.17 H, Estim Creat Clear Calc 43.84, Est GFR (MDRD) Af Amer 58 L, Est GFR (MDRD) Non-Af 48 L, BUN/Creatinine Ratio 18.8, Glucose 174 H, Calcium 8.3 L 04/17/23 06:19: POC Glucose 182 H 04/17/23 09:05: Random Vancomycin 20.7 H 04/17/23 11:28: POC Glucose 165 H Micro: Microbiology 04/11/23 18:51 Blood Culture (Wb) - Anticubital Right Blood Culture - Final No growth in 5 days. 04/11/23 18:52 Blood Culture (Wb) - Left Hand Blood Culture - Final No growth in 5 days. 04/13/23 16:00 Wound Drainage - Knee Gram Stain - Final 04/13/23 16:00 Wound Drainage - Knee Wound Culture - Final No growth aerobically. 04/13/23 16:00 Wound Drainage - Knee Anaerobic Culture - Preliminary No growth in 48 hours. Physical Exam Const alert, oriented x3, no apparent distress and well nourished Constitutional Narrative: Morbidly obese, older, white female, sitting up in a chair at the bedside with her legs elevated, dozing off but awakens easily, appears comfortable at this time, patient is nontoxic and well-nourished appearing, family at bedside Psych affect normal Psych Narrative: Patient is very pleasant, interacts appropriately Assessment & Plan Assessment/Plan (1) Cellulitis of right lower extremity: (2) Nausea and vomiting: (3) Hematoma of right lower leg: PLAN: Plan Right lower extremity cellulitis with concern for infected hematoma of the right knee -Blood cultures with no growth to date -Surgical wound culture remains unremarkable -Fungal smear is pending -Start Keflex today day 1 of 5 complete antibiotic course -Evacuation of hematoma is completed on 04/13/2023 however wound closure was not possible due to the size and wound VAC placed -Patient was taken to the OR on 04/16/2023 for attempted closure however unfortunately this was not able to be performed and she will need ongoing wound VAC -Infectious disease following-appreciate input Large right knee hematoma -Hematoma was evacuated on 04/13/2023 -We will hold Xarelto until she is discharged--> okay for reinitiation per discussion with orthopedic surgery Debility/fall/generalized weakness -PT/OT following, weightbearing per orthopedic surgery -Current plan is to transitional care unit once pre-CERT is obtained--> patient has been medically ready since 04/16/2023 -Case management/social work following Acute on chronic anemia -Patient with chronic anemia appearing to have his hemoglobin at baseline between 8 and 10 -Repeat hemoglobin this afternoon is stable in the mid to upper 7 range -Was transfused 2 units packed red blood cells at last hospitalization but no transfusions required this hospitalization -Repeat CBC in a.m. -Transfuse for hemoglobin less than 7 or precipitous bleeding CHRISTIAN on CKD stage II -CHRISTIAN has resolved -Baseline serum creatinine appears to be between 0.9 and 1.1 -Creatinine is overall relatively stable -Continue to monitor -Continue home Bumex and lisinopril Paroxysmal atrial fibrillation -Continue home amiodarone -Xarelto on hold due to bleeding -Currently in normal sinus rhythm CAD/HTN/HPL -Status post quadruple bypass in 2017 -Continue home fenofibric acid -Restart home Bumex -Restart home lisinopril KASANDRA -Patient does not tolerate CPAP -Is untreated at baseline -Encouraged outpatient follow-up DM-2 -Hold oral regimen -Continue basal insulin 30 units nightly -174 fasting today however her blood sugars increase the day after surgery last time as well we will continue to monitor -Hemoglobin A1c on 04/13/2023 was 6.9 so it appears that she is very well controlled on her baseline home regimen however her anemia could complicate the interpretation of this making her hemoglobin A1c lower than actually has been -Continue prandial insulin scheduled -SSI -Cardiac/carb controlled diet -Accu-Chek as ordered DVT prophylaxis -We will start subcu Lovenox and if tolerates well transition to Eliquis for full anticoagulation at the time of discharge CODE STATUS Full code Charges/Coding Visit Charges Inpatient E&M: 39827 Subs Hosp L1
[2023-04-17 15:41] VITALS: BP 151/69; PULSE 63; RESP 18; TEMP 36.8; O2SAT 98
--- NOTE | 2023-04-17 15:43 | PCM.PN.ORT ---
Subjective Subjective Patient was seen and examined today. States that she is doing well overall. Pain 2-3/10. She has been seen by PT and states that this went well. Denies fever, chills, nausea, vomiting, chest pain, shortness of breath. Objective Data Objective Data Vital Signs: Vital Signs Temp Pulse Resp BP Pulse Ox O2 Del Method O2 Flow Rate 98.2 F 63 18 151/69 H 98 Room Air 2 04/17/23 15:41 04/17/23 15:41 04/17/23 15:41 04/17/23 15:41 04/17/23 15:41 04/17/23 15:41 04/13/23 18:40 Oxygen Flow Rate (L/min) 2 Oxygen Delivery Method Room Air Weight: 319 lb 10.724 oz Body Mass Index (BMI) 48.4 Intake & Output: Intake and Output for Last 24 Hours 04/15/23 04/16/23 04/17/23 23:59 23:59 23:59 Intake Total 1520 / 1820 815 / 815 100 / 100 Output Total 310 / 310 600 / 600 400 / 400 Balance 1210 / 1510 215 / 215 -300 / -300 Lab / Micro Data 04/17/23 06:05 04/17/23 06:05 Labs: Laboratory Results - last 24 hr 04/16/23 16:39: POC Glucose 192 H 04/16/23 21:22: Vancomycin Trough 27.0 H 04/16/23 23:24: POC Glucose 151 H 04/17/23 06:05: WBC 5.5, RBC 2.58 L, Hgb 7.3 L, Hct 24.3 L, MCV 94.2, MCH 28.3, MCHC 30.0 L, RDW Std Deviation 53.5 H, RDW Coeff of Kevyn 15.6 H, Plt Count 325, MPV 10.5, Immature Gran % (Auto) 1.600 H, Neut % (Auto) 69.3, Lymph % (Auto) 15.7 L, [place] % (Auto) 10.9 H, Eos % (Auto) 1.6, Baso % (Auto) 0.9, Absolute Neuts (auto) 3.8, Absolute Lymphs (auto) 0.86, Nucleated RBC % 0, Sodium 135 L, Potassium 4.4, Chloride 106, Carbon Dioxide 26.0, Anion Gap 3 L, BUN 22 H, Creatinine 1.17 H, Estim Creat Clear Calc 43.84, Est GFR (MDRD) Af Amer 58 L, Est GFR (MDRD) Non-Af 48 L, BUN/Creatinine Ratio 18.8, Glucose 174 H, Calcium 8.3 L 04/17/23 06:19: POC Glucose 182 H 04/17/23 09:05: Random Vancomycin 20.7 H 04/17/23 11:28: POC Glucose 165 H Micro: Microbiology 04/11/23 18:51 Blood Culture (Wb) - Anticubital Right Blood Culture - Final No growth in 5 days. 04/11/23 18:52 Blood Culture (Wb) - Left Hand Blood Culture - Final No growth in 5 days. 04/13/23 16:00 Wound Drainage - Knee Gram Stain - Final 04/13/23 16:00 Wound Drainage - Knee Wound Culture - Final No growth aerobically. 04/13/23 16:00 Wound Drainage - Knee Anaerobic Culture - Preliminary No growth in 48 hours. Physical Exam Const alert, oriented x3 and no apparent distress General Appearance: cooperative Extremity Extremity Narrative: Upon inspection of the right lower extremity there is a wound VAC in place with good seal. Skin edges still appear viable. Still some erythema from the cellulitis. Neurovascularly intact. Assessment & Plan Assessment/Plan (1) Open wound of knee: QUALIFIERS: Encounter type: subsequent encounter Laterality: right Qualified Code(s): S81.001D - Unspecified open wound, right knee, subsequent encounter PLAN: Plan S/p right knee hematoma with evacuation and placement of wound vac, DOS: 04/16/2023. Dr. Gallegos consulted wound care and they will preform wound vac change Q3 days and will follow to the TCU. Dr. Gallegos also consulted Dr. Bentley (plastic surgery). Continue antibiotic regimen. Pharmacology and infectious disease following. PT/OT - WBAT, encourage knee ROM and ambulation
[2023-04-17] MEDS: Insulin Lispro 100 UNIT/ML INSULN.PEN 25 UNIT SC (16:53)
[2023-04-17 17:18] LABS: Bedside Glucose 164 mg/dL (74-106)
[2023-04-17 22:00] VITALS: BP 147/66; PULSE 68; RESP 18; TEMP 36.7; O2SAT 98
[2023-04-17] MEDS: Atorvastatin Calcium 40 MG Tablet PO (22:21)
[2023-04-17] MEDS: Enoxaparin 40 MG/0.4 ML Syringe SC (22:23)
[2023-04-17] MEDS: Insulin Glargine-YFGN 100 UNIT/ML Pen 30 UNIT SC (22:24)
[2023-04-18 00:46] LABS: Bedside Glucose 177 mg/dL (74-106)
[2023-04-18 05:07] LABS: Absolute Lymphocyte Count 0.85 X10^3/uL (0.83-4.51); Absolute Neutrophil Count 3.6 X10^3/uL (2.0-7.7); Basophil# 0.04 X10^3/uL; Basophil% 0.8 % (0-1); Eosinophil# 0.05 X10^3/uL; Eosinophils% 0.9 % (0-5); Hematocrit 23.7 % (37-47); Hemoglobin 7.2 g/dL (12.0-15.0); Lymphocyte # 0.85 X10^3/ul (0.83-4.51); Lymphocyte % 16.1 % (19-41); Mean Corp Hgb Conc 30.4 g/dL (32-36); Mean Corpuscular Hgb 28.3 pg (27.0-32.0); Mean Corpuscular Volume 93.3 fL (81-99); Monocyte# 0.62 X10^3/uL; Monocyte% 11.7 % (0-10); NRBC Flagged by Analyzer 0.4 % (0-5); Neutrophil # 3.61 X10^3/uL (2.7-7.7); Neutrophil % 68.4 % (47-70); Platelet Count 302 K/mm3 (150-450); RBC Distribution Width CV 15.7 % (11.6-14.6); RBC Distribution Width SD 53.3 fl (35.1-43.9); Red Blood Count 2.54 M/mm3 (4.2-5.4); White Blood Count 5.3 K/mm3 (4.4-11.0)
[2023-04-18 05:42] LABS: Anion Gap 3 (5-15); BUN 26 mg/dL (7-18); BUN/Creat Ratio 20.2 RATIO (10-20); Calcium,Total 8.3 mg/dL (8.5-10.1); Chloride 109 mmol/L (98-107); Creatinine, Serum 1.29 mg/dL (0.55-1.02); EST Glomerular Filtration Rate 43 mL/min (>60); Est Glom Filt Rate - Afr Amer 52 mL/min (>60); Estimated Creatinine Clearance 39.77 ml/min; Glucose 174 mg/dL (74-106); Potassium 4.2 mmol/L (3.5-5.1); Sodium Level 139 mmol/L (136-145)
[2023-04-18 06:00] VITALS: BP 133/54; PULSE 58; RESP 16; TEMP 36.8; O2SAT 96; BMI 46.5
[2023-04-18] MEDS: Levothyroxine 100 MCG Tablet 200 MCG PO (06:03)
--- NOTE | 2023-04-18 07:38 | PN.HOSP_ITS ---
Reason for Visit Reason for Visit: Diagnoses Essential (primary) hypertension (04/11/23) Atherosclerotic heart disease of [place] coronary artery without angina pectoris (04/11/23) Pulmonary hypertension, unspecified (04/11/23) Unspecified atrial fibrillation (04/11/23) Cellulitis of right lower limb (04/11/23) Cellulitis, unspecified (04/11/23) Nausea with vomiting, unspecified (04/11/23) Contusion of right knee, initial encounter (04/11/23) Contusion of right lower leg, initial encounter (04/11/23) Unspecified open wound, right knee, subsequent encounter (04/11/23) Other specified health status (04/11/23) Objective Data Objective Data Vital Signs: Vital Signs Temp Pulse Resp BP Pulse Ox O2 Del Method O2 Flow Rate 98.2 F 58 L 16 133/54 H 96 Room Air 2 04/18/23 06:00 04/18/23 06:00 04/18/23 06:00 04/18/23 06:00 04/18/23 06:00 04/18/23 06:00 04/13/23 18:40 Oxygen Flow Rate (L/min) 2 Oxygen Delivery Method Room Air Weight: 307 lb 5.19 oz Body Mass Index (BMI) 46.5 Intake & Output: Intake and Output for Last 24 Hours 04/16/23 04/17/23 04/18/23 23:59 23:59 23:59 Intake Total 815 / 815 365 / 365 Output Total 600 / 600 800 / 800 Balance 215 / 215 -435 / -435 Lab / Micro Data 04/18/23 04:48 04/18/23 04:48 Labs: Laboratory Results - last 24 hr 04/17/23 09:05: Random Vancomycin 20.7 H 04/17/23 11:28: POC Glucose 165 H 04/17/23 16:52: POC Glucose 164 H 04/17/23 22:18: POC Glucose 177 H 04/18/23 04:48: WBC 5.3, RBC 2.54 L, Hgb 7.2 L, Hct 23.7 L, MCV 93.3, MCH 28.3, MCHC 30.4 L, RDW Std Deviation 53.3 H, RDW Coeff of Kevyn 15.7 H, Plt Count 302, MPV 10.0, Immature Gran % (Auto) 2.100 H, Neut % (Auto) 68.4, Lymph % (Auto) 16.1 L, [place] % (Auto) 11.7 H, Eos % (Auto) 0.9, Baso % (Auto) 0.8, Absolute Neuts (auto) 3.6, Absolute Lymphs (auto) 0.85, Nucleated RBC % 0.4, Sodium 139, Potassium 4.2, Chloride 109 H, Carbon Dioxide 27.0, Anion Gap 3 L, BUN 26 H, Creatinine 1.29 H, Estim Creat Clear Calc 39.77, Est GFR (MDRD) Af Amer 52 L, Est GFR (MDRD) Non-Af 43 L, BUN/Creatinine Ratio 20.2 H, Glucose 174 H, Calcium 8.3 L Micro: Microbiology 04/11/23 18:51 Blood Culture (Wb) - Anticubital Right Blood Culture - Final No growth in 5 days. 04/11/23 18:52 Blood Culture (Wb) - Left Hand Blood Culture - Final No growth in 5 days. 04/13/23 16:00 Wound Drainage - Knee Gram Stain - Final 04/13/23 16:00 Wound Drainage - Knee Wound Culture - Final No growth aerobically. 04/13/23 16:00 Wound Drainage - Knee Anaerobic Culture - Preliminary No growth in 48 hours. Physical Exam Narrative Patient has right knee deformity after surgery. Has wound VAC. Physical Examination: General: Alert, Oriented x3, Cooperative HEENT: Atraumatic, PERRLA, EOMI, Normocephalic Oral: No Gingival or Mucosal Lesions/ Ulcerations Neck: Thyroidectomy surgical scar supple, No JVD, Negative Carotid Bruits Lungs: Air entry diminished in bilateral lung bases. No crepitation/rhonchi Cardiovascular: Quadruple surgical scar. Regular rate, Regular Rhythm, Normal S1, Normal S2, No murmurs Abdomen: Bowel Sounds Present, Soft, Non Tender, Non-Distended : No renal angle tenderness. No suprapubic tenderness. Extremities: No edema, Capillary Refill Less than 3 Seconds Skin: Right knee surgical scar. Musculoskeletal: Has wound VAC. Right knee deformity, lost its usual contour. No Tenderness to Palpation of Joints or Extremities Neurological: Cranial nerves II-XII grossly intact, DTR 2+/4 and Symmetrical, Neuro grossly intact Psych/Mental Status: Flat affect. Assessment & Plan Assessment/Plan (1) Cellulitis of right lower extremity: (2) Nausea and vomiting: (3) Hematoma of right lower leg: PLAN: Plan Right lower extremity cellulitis with concern for infected hematoma of the right knee Blood culture negative for 5 days. Surgical culture is also negative for more than 48 hours. Fungal culture pending. Patient was on vancomycin and c eftriaxone changed to Keflex started on 04/17/2023 for 5 days. Patient was seen and evaluated by ID. Patient was also on Bactrim Keflex prior to admission. -Evacuation of hematoma is completed on 04/13/2023 however wound closure was not possible due to the size and wound VAC placed Patient was taken to the OR on 04/16/2023 for attempted closure however unfortunately this was not able to be performed and she will need ongoing wound VAC Large right knee hematoma -Hematoma was evacuated on 04/13/2023 Xarelto was started low-dose 10 mg daily today evening. If patient tolerates we will increase to full dose 20 mg daily. Lovenox discontinued. Debility/fall/generalized weakness -PT/OT following, weightbearing per orthopedic surgery -Current plan is to transitional care unit once pre-CERT is obtained--> patient has been medically ready since 04/16/2023 -Case management/social work following Acute on chronic anemia -Patient with chronic anemia appearing to have his hemoglobin at baseline bet rafa 8 and 10 Patient is states usually her hemoglobin is around 8-9 gram percent.In the hospital she is around 7.2. Iron infusion ordered. Was transfused 2 packed units during last hospitalization. If hemoglobin drops less than 7 g will need PRBC transfusion. CHRISTIAN on CKD stage II -CHRISTIAN has resolved -Baseline serum creatinine appears to be between 0.9 and 1.1 -Creatinine is overall relatively stable -Continue to monitor -Continue home Bumex and lisinopril Paroxysmal atrial fibrillation -Continue home amiodarone -Xarelto on hold due to bleeding -Currently in normal sinus rhythm CAD/HTN/HPL -Status post quadruple bypass in 2017 -Continue home fenofibric acid -Restart home Bumex -Restart home lisinopril KASANDRA -Patient does not tolerate CPAP -Is untreated at baseline -Encouraged outpatient follow-up DM-2 -Hold oral regimen -Continue basal insulin 30 units nightly -174 fasting today however her blood sugars increase the day after surgery last time as well we will continue to monitor -Hemoglobin A1c on 04/13/2023 was 6.9 so it appears that she is very well controlled on her baseline home regimen however her anemia could complicate the interpretation of this making her hemoglobin A1c lower than actually has been -Continue prandial insulin scheduled -SSI -Cardiac/carb controlled diet -Accu-Chek as ordered DVT prophylaxis -We will start subcu Lovenox and if tolerates well transition to Eliquis for full anticoagulation at the time of discharge CODE STATUS Full code Charges/Coding Visit Charges Inpatient E&M: 35715 Subs Hosp L2
[2023-04-18] MEDS: Insulin Lispro 100 UNIT/ML INSULN.PEN SC ×4 (07:51→22:25)
[2023-04-18] MEDS: Insulin Lispro 100 UNIT/ML INSULN.PEN 12 UNIT SC (07:51)
[2023-04-18] MEDS: Juven (unflavored) Packet 1 PACKET PO ×2 (07:52→16:12)
[2023-04-18 07:57] VITALS: BP 150/55; PULSE 55; RESP 18; TEMP 37.1; O2SAT 98
[2023-04-18 08:00] VITALS: RESP 18
[2023-04-18 08:19] LABS: Bedside Glucose 191 mg/dL (74-106)
[2023-04-18] MEDS: Cephalexin 500 MG Capsule PO ×2 (09:36→22:01)
[2023-04-18] MEDS: Nystatin Powder 15gm Bottle 1 APPLIC TOPICAL ×2 (09:36→22:02)
[2023-04-18] MEDS: Amiodarone 200 MG Tablet 100 MG PO (09:37)
[2023-04-18] MEDS: prednisoLONE eye drops (5 mL) 1 DROP OPTH.BTL 1 DRP OPHTHALMIC ×2 (09:37→22:01)
[2023-04-18] MEDS: Bumetanide 0.5 MG Tablet PO (09:38)
[2023-04-18] MEDS: Menthol/Lanolin/Calamine/Znox 113 GM Tube 1 APPLIC TOPICAL ×2 (09:38→22:22)
[2023-04-18] MEDS: Fenofibrate 145 MG Tablet PO (09:38)
[2023-04-18] MEDS: Glycerin/Hypromellose/PEG400 15 ml Bottle 1 DRP EACH EYE ×2 (09:38→22:01)
[2023-04-18] MEDS: Lisinopril 10 MG Tablet PO (09:39)
[2023-04-18 11:54] LABS: Bedside Glucose 184 mg/dL (74-106)
[2023-04-18] MEDS: Insulin Lispro 100 UNIT/ML INSULN.PEN 18 UNIT SC (12:27)
[2023-04-18] MEDS: Insulin Lispro 100 UNIT/ML INSULN.PEN 25 UNIT SC (16:11)
[2023-04-18] MEDS: Rivaroxaban 10 MG Tablet PO (16:13)
[2023-04-18 16:23] VITALS: BP 144/70; PULSE 54; RESP 18; TEMP 36.9; O2SAT 97
[2023-04-18 16:25] VITALS: RESP 18
[2023-04-18 16:35] LABS: Bedside Glucose 195 mg/dL (74-106)
[2023-04-18 20:08] VITALS: BP 156/67; PULSE 59; RESP 16; TEMP 36.9; O2SAT 100
[2023-04-18] MEDS: Atorvastatin Calcium 40 MG Tablet PO (22:03)
[2023-04-18] MEDS: oxyCODONE 5 MG Tablet PO (22:21)
[2023-04-18] MEDS: Insulin Glargine-YFGN 100 UNIT/ML Pen 30 UNIT SC (22:26)
[2023-04-18 23:22] LABS: Bedside Glucose 164 mg/dL (74-106)
[2023-04-19 03:30] VITALS: BP 132/67; PULSE 60; RESP 16; TEMP 37.4; O2SAT 93
[2023-04-19 05:57] VITALS: BMI 46.5
[2023-04-19] MEDS: Levothyroxine 100 MCG Tablet 200 MCG PO (06:23)
[2023-04-19 06:28] LABS: Absolute Neutrophil Count 3.7 X10^3/uL (2.0-7.7); Basophil# 0.05 X10^3/uL; Basophil% 0.9 % (0-1); Eosinophil# 0.03 X10^3/uL; Eosinophils% 0.6 % (0-5); Hematocrit 24.3 % (37-47); Hemoglobin 7.2 g/dL (12.0-15.0); Lymphocyte % 14.9 % (19-41); Mean Corp Hgb Conc 29.6 g/dL (32-36); Mean Corpuscular Volume 94.6 fL (81-99); Mean Platelet Vol. 9.9 fl (6.2-12.0); Monocyte# 0.65 X10^3/uL; Monocyte% 12.1 % (0-10); NRBC Flagged by Analyzer 0 % (0-5); Neutrophil # 3.73 X10^3/uL (2.7-7.7); Neutrophil % 69.5 % (47-70); Platelet Count 322 K/mm3 (150-450); RBC Distribution Width CV 15.8 % (11.6-14.6); RBC Distribution Width SD 54.3 fl (35.1-43.9); Red Blood Count 2.57 M/mm3 (4.2-5.4); White Blood Count 5.4 K/mm3 (4.4-11.0)
[2023-04-19 06:54] LABS: Bedside Glucose 162 mg/dL (74-106)
[2023-04-19 07:13] LABS: Anion Gap 5 (5-15); BUN 28 mg/dL (7-18); BUN/Creat Ratio 20.9 RATIO (10-20); Calcium,Total 8.4 mg/dL (8.5-10.1); Chloride 108 mmol/L (98-107); Creatinine, Serum 1.34 mg/dL (0.55-1.02); EST Glomerular Filtration Rate 41 mL/min (>60); Est Glom Filt Rate - Afr Amer 50 mL/min (>60); Estimated Creatinine Clearance 38.28 ml/min; Glucose 161 mg/dL (74-106); Potassium 4.1 mmol/L (3.5-5.1); Sodium Level 138 mmol/L (136-145)
[2023-04-19] MEDS: Juven (unflavored) Packet 1 PACKET PO ×2 (08:03→16:17)
[2023-04-19 08:21] LABS: Bedside Glucose 142 mg/dL (74-106)
[2023-04-19 08:47] VITALS: BP 150/56; PULSE 60; RESP 16; TEMP 36.8; O2SAT 97
[2023-04-19 09:16] VITALS: O2SAT 95
[2023-04-19] MEDS: oxyCODONE 5 MG Tablet PO (10:03)
[2023-04-19] MEDS: Bumetanide 0.5 MG Tablet PO (10:04)
[2023-04-19] MEDS: Glycerin/Hypromellose/PEG400 15 ml Bottle 1 DRP EACH EYE ×2 (10:04→21:11)
[2023-04-19] MEDS: Menthol/Lanolin/Calamine/Znox 113 GM Tube 1 APPLIC TOPICAL ×2 (10:05→21:16)
[2023-04-19] MEDS: Amiodarone 200 MG Tablet 100 MG PO (10:05)
[2023-04-19] MEDS: Cephalexin 500 MG Capsule PO ×2 (10:06→21:12)
[2023-04-19] MEDS: Nystatin Powder 15gm Bottle 1 APPLIC TOPICAL ×2 (10:06→21:10)
[2023-04-19] MEDS: prednisoLONE eye drops (5 mL) 1 DROP OPTH.BTL 1 DRP OPHTHALMIC ×2 (10:07→21:11)
[2023-04-19] MEDS: Lisinopril 10 MG Tablet PO (10:07)
[2023-04-19] MEDS: Fenofibrate 145 MG Tablet PO (10:07)
--- NOTE | 2023-04-19 10:28 | WOUNDNOTE ---
wound photo: right knee
[2023-04-19] MEDS: Insulin Lispro 100 UNIT/ML INSULN.PEN 18 UNIT SC (11:19)
[2023-04-19] MEDS: Insulin Lispro 100 UNIT/ML INSULN.PEN SC ×2 (11:20→16:18)
[2023-04-19 11:41] LABS: Bedside Glucose 256 mg/dL (74-106)
--- NOTE | 2023-04-19 14:25 | PN.HOSP_ITS ---
Reason for Visit Reason for Visit: Diagnoses Essential (primary) hypertension (04/11/23) Atherosclerotic heart disease of [place] coronary artery without angina pectoris (04/11/23) Pulmonary hypertension, unspecified (04/11/23) Unspecified atrial fibrillation (04/11/23) Cellulitis of right lower limb (04/11/23) Cellulitis, unspecified (04/11/23) Nausea with vomiting, unspecified (04/11/23) Contusion of right knee, initial encounter (04/11/23) Contusion of right lower leg, initial encounter (04/11/23) Unspecified open wound, right knee, subsequent encounter (04/11/23) Other specified health status (04/11/23) Subjective Subjective No new complaint. Objective Data Objective Data Vital Signs: Vital Signs Temp Pulse Resp BP Pulse Ox O2 Del Method O2 Flow Rate 98.3 F 60 16 150/56 H 95 Room Air 2 04/19/23 08:47 04/19/23 08:47 04/19/23 08:47 04/19/23 08:47 04/19/23 09:16 04/19/23 08:47 04/13/23 18:40 Oxygen Flow Rate (L/min) 2 Oxygen Delivery Method Room Air Weight: 307 lb 1.663 oz Body Mass Index (BMI) 46.5 Intake & Output: Intake and Output for Last 24 Hours 04/17/23 04/18/23 04/19/23 23:59 23:59 23:59 Intake Total 365 / 365 1934 / 5 600 / 600 Output Total 800 / 800 750 / 750 Balance -435 / -435 1934 -150 / -150 Lab / Micro Data 04/19/23 06:12 04/19/23 06:12 Labs: Laboratory Results - last 24 hr 04/18/23 16:07: POC Glucose 195 H 04/18/23 22:25: POC Glucose 164 H 04/19/23 06:12: WBC 5.4, RBC 2.57 L, Hgb 7.2 L, Hct 24.3 L, MCV 94.6, MCH 28.0, MCHC 29.6 L, RDW Std Deviation 54.3 H, RDW Coeff of Kevyn 15.8 H, Plt Count 322, MPV 9.9, Immature Gran % (Auto) 2.000 H, Neut % (Auto) 69.5, Lymph % (Auto) 14.9 L, [place] % (Auto) 12.1 H, Eos % (Auto) 0.6, Baso % (Auto) 0.9, Absolute Neuts (auto) 3.7, Absolute Lymphs (auto) 0.80 L, Nucleated RBC % 0, Sodium 138, Potassium 4.1, Chloride 108 H, Carbon Dioxide 25.0, Anion Gap 5, BUN 28 H, Creatinine 1.34 H, Estim Creat Clear Calc 38.28, Est GFR (MDRD) Af Amer 50 L, Est GFR (MDRD) Non-Af 41 L, BUN/Creatinine Ratio 20.9 H, Glucose 161 H, Calcium 8.4 L 04/19/23 06:20: POC Glucose 162 H 04/19/23 08:01: POC Glucose 142 H 04/19/23 11:17: POC Glucose 256 H Micro: Microbiology 04/13/23 16:00 Wound Drainage - Knee Gram Stain - Final 04/13/23 16:00 Wound Drainage - Knee Wound Culture - Final No growth aerobically. 04/13/23 16:00 Wound Drainage - Knee Anaerobic Culture - Final No growth in 5 days. 04/11/23 18:51 Blood Culture (Wb) - Anticubital Right Blood Culture - Final No growth in 5 days. 04/11/23 18:52 Blood Culture (Wb) - Left Hand Blood Culture - Final No growth in 5 days. Physical Exam Narrative Patient has right knee deformity after surgery. Dressing and wound VAC was changed today. Patient feels mild softness above bone drain. Physical Examination: General: Alert, Oriented x3, Cooperative HEENT: Atraumatic, PERRLA, EOMI, Normocephalic Oral: No Gingival or Mucosal Lesions/ Ulcerations Neck: Thyroidectomy surgical scar supple, No JVD, Negative Carotid Bruits Lungs: Air entry diminished in bilateral lung bases. No crepitation/rhonchi Cardiovascular: Quadruple surgical scar. Regular rate, Regular Rhythm, Normal S1, Normal S2, No murmurs Abdomen: Bowel Sounds Present, Soft, Non Tender, Non-Distended : No renal angle tenderness. No suprapubic tenderness. Extremities: No edema, Capillary Refill Less than 3 Seconds Skin: Right knee surgical scar. Musculoskeletal: Softness proximal to the wound drain, cystic/fluid consistency on palpation. New wound VAC. Right knee deformity, lost its usual contour. No Tenderness to Palpation of Joints or Extremities Neurological: Cranial nerves II-XII grossly intact, DTR 2+/4 and Symmetrical, Neuro grossly intact Psych/Mental Status: Flat affect. Assessment & Plan Assessment/Plan (1) Cellulitis of right lower extremity: (2) Nausea and vomiting: QUALIFIERS: Vomiting type: unspecified Qualified Code(s): R11.2 - Nausea with vomiting, unspecified (3) Hematoma of right lower leg: PLAN: Plan Right lower extremity cellulitis with concern for infected hematoma of the right knee Blood culture negative for 5 days. Surgical culture is also negative for more than 48 hours. Fungal culture pending. Patient was on vancomycin and ceftriaxone changed to Keflex started on 04/17/2023 for 5 days. Patient was seen and evaluated by ID. Patient was also on Bactrim Keflex prior to admission. -Evacuation of hematoma is completed on 04/13/2023 however wound closure was not possible due to the size and wound VAC placed Patient was taken to the OR on 04/16/2023 for attempted closure however unfor tunately this was not able to be performed and she will need ongoing wound VAC 04/20: Dressing and wound VAC was changed. Large right knee hematoma -Hematoma was evacuated on 04/13/2023 Xarelto was started low-dose 10 mg daily today evening. If patient tolerates we will increase to full dose 20 mg daily. Lovenox discontinued. Debility/fall/generalized weakness -PT/OT following, weightbearing per orthopedic surgery -Current plan is to transitional care unit once pre-CERT is obtained--> patient has been medically ready since 04/16/2023 -Case management/social work following Acute on chronic anemia -Patient with chronic anemia appearing to have his hemoglobin at baseline between 8 and 10 Patient is states usually her hemoglobin is around 8-9 gram percent.In the hospital she is around 7.2. Iron infusion ordered. Was transfused 2 packed units during last hospitalization. If hemoglobin drops less than 7 g will need PRBC transfusion. 04/19: Hemoglobin is still on lower side 7.2. IV iron 1 dose ordered. Continue low-dose Xarelto. CHRISTIAN on CKD stage II -CHRISTIAN has resolved -Baseline serum creatinine appears to be between 0.9 and 1.1 -Creatinine is overall relatively stable -Continue to monitor -Continue home Bumex and lisinopril 04/19: Creatinine 1.34. Creatinine is gradually increasing. Patient admitted with creatinine 1.45, decreased to 1.03 and then gradually going up to 1.34. M onitor kidney function daily. Paroxysmal atrial fibrillation -Continue home amiodarone -Xarelto on hold due to bleeding -Currently in normal sinus rhythm CAD/HTN/HPL -Status post quadruple bypass in 2017 -Continue home fenofibric acid -Restart home Bumex -Restart home lisinopril KASANDRA -Patient does not tolerate CPAP -Is untreated at baseline -Encouraged outpatient follow-up DM-2 -Hold oral regimen -Continue basal insulin 30 units nightly -174 fasting today however her blood sugars increase the day after surgery last time as well we will continue to monitor -Hemoglobin A1c on 04/13/2023 was 6.9 so it appears that she is very well controlled on her baseline home regimen however her anemia could complicate the interpretation of this making her hemoglobin A1c lower than actually has been -Continue prandial insulin scheduled -SSI -Cardiac/carb controlled diet -Accu-Chek as ordered DVT prophylaxis -We will start subcu Lovenox and if tolerates well transition to Eliquis for full anticoagulation at the time of discharge CODE STATUS Full code Charges/Coding Visit Charges Inpatient E&M: 40048 Subs Hosp L2
--- NOTE | 2023-04-19 15:35 | CASEMGMT ---
Social Work SW met with patient and patient's family and introduced herself and role as [facility] SW. Patient agreeable to speak with SW with family present. SW provided patient with an update regarding TCU admission, explaining precert is still pending. Patient voiced understanding. SW to continue to assist with D/C planning needs. Plan: TCU pending precert Lucille YIN, [place]
[2023-04-19 15:44] VITALS: BP 136/64; PULSE 58; RESP 16; TEMP 36.9; O2SAT 100
[2023-04-19] MEDS: Insulin Lispro 100 UNIT/ML INSULN.PEN 25 UNIT SC (16:18)
[2023-04-19] MEDS: Rivaroxaban 10 MG Tablet PO (16:19)
[2023-04-19 17:02] LABS: Bedside Glucose 239 mg/dL (74-106)
[2023-04-19 21:09] VITALS: BP 155/61; PULSE 100; RESP 18; TEMP 36.4; O2SAT 58
[2023-04-19] MEDS: Insulin Glargine-YFGN 100 UNIT/ML Pen 30 UNIT SC (21:12)
[2023-04-19] MEDS: Atorvastatin Calcium 40 MG Tablet PO (21:12)
[2023-04-19 21:38] LABS: Bedside Glucose 141 mg/dL (74-106)
--- NOTE | 2023-04-19 22:24 | PCM.CONS.GEN ---
Assessment & Plan Assessment/Plan (1) Open wound of right knee with complication: (2) Hematoma of right knee region: (3) Diabetes mellitus: (4) Anemia of chronic disease: (5) Cellulitis of right lower extremity: (6) Obesity: HPI Consult Data Date of Consult: 04/19/23 PCP / Referring MD: Dr Tyrese Gallegos DO HPI Narrative Reason for Consultation: Open surgical hematoma wound right medial knee HPI Narrative: MADAN CARRION, is a 72 F who presents [facility] Medical History (Updated 04/19/23 @ 22:[address] Murray Bentley MD) Anemia Anemia of chronic disease Anticoagulant long-term use Anxiety and depression Arthritis Atrial fibrillation CAD (coronary artery disease) CPAP (continuous positive airway pressure) dependence Diabetes mellitus DVT (deep venous thrombosis) Failure of outpatient treatment Hematoma of right knee region History of stress incontinence Hx of necrotizing fasciitis Hypertension Hypothyroidism Insulin dependent diabetes mellitus Open wound of right knee with complication PAF (paroxysmal atrial fibrillation) Restless legs Stage 3b chronic kidney disease (CKD) Traumatic hematoma of right knee Wears dentures Home Medications atorvastatin 40 mg tablet 40 mg PO QHS Cholesterol 09/07/14 [History Last Taken 04/06/23] fenofibric acid (choline) 135 mg capsule,delayed release (Trilipix) 135 mg PO DAILY Cholesterol 09/07/14 [History Last Taken 04/06/23] levothyroxine 175 mcg tablet 200 mcg PO DAILY Thyroid 04/12/20 [History Last Taken 04/06/23] bumetanide 0.5 mg tablet 0.5 mg PO DAILY BP 02/17/21 [History Last Taken 04/06/23] insulin glargine U-300 conc 300 unit/mL (1.5 mL) subcutaneous pen (Toujeo SoloStar U-300 Insulin) 30 unit subcut QHS Diabetes 02/17/21 [History Last Taken 04/06/23] insulin lispro 100 unit/mL subcutaneous solution 25 unit subcut DINNER Diabetes 02/17/21 [History Last Taken 04/06/23] insulin lispro 100 unit/mL subcutaneous solution (Humalog U-100 Insulin) 12 unit subcut BREAKFAST Diabetes 02/17/21 [History Last Taken 04/06/23] acetaminophen 500 mg tablet 1,000 mg (2 x 500 mg) PO Q6H PRN PRN Pain Score 1-5 #0 tabs 05/14/21 [Rx Last Taken 04/06/23] insulin lispro 100 unit/mL subcutaneous pen 18 unit subcut LUNCH diabetes 05/30/21 [History Last Taken 04/06/23] rivaroxaban 15 mg tablet (Xarelto) 20 mg PO DAILY blood thinner 05/30/21 [History Last Taken 04/06/23] amiodarone 200 mg tablet 100 mg PO DAILY hrt 11/12/21 [History Last Taken 04/06/23] doxycycline monohydrate 100 mg capsule 100 mg PO DAILY cellulitis #30 caps 04/09/23 [Rx Last Taken Unknown] insulin lispro 100 unit/mL subcutaneous pen (Humalog KwikPen (U-100) Insulin) See Protocol subcut 4X/DAYCM dm #0 mL 04/09/23 [Rx Last Taken Unknown] oxycodone 5 mg tablet 5 mg PO Q4H PRN PRN Pain Score 4-10 3 days #12 tabs 04/09/23 [Rx Last Taken Unknown] sennosides 8.6 mg-docusate sodium 50 mg tablet (Stool Softener-Stimulant Laxative) 2 tab PO BID PRN PRN Constipation #0 tabs 04/09/23 [Rx Last Taken Unknown] cephalexin 500 mg tablet 500 mg PO Q8H cellulitis 7 days #21 tabs 04/11/23 [Rx Last Taken Unknown] lisinopril 10 mg tablet 10 mg PO DAILY bp 04/11/23 [History Last Taken Unknown] ofloxacin 0.3 % eye drops 1 drp ophthalmic (eye) Q6H eye 04/11/23 [History Last Taken Unknown] prednisolone acetate 1 % eye drops,suspension 1 drp ophthalmic (eye) BID eye 04/11/23 [History Last Taken Unknown] sodium chloride 5 % eye drops 1 drp ophthalmic (eye) BID eye 04/11/23 [History Last Taken Unknown] sulfamethoxazole 800 mg-trimethoprim 160 mg tablet (Bactrim DS) 1 tab PO BID cellulitis 7 days #14 tabs 04/11/23 [Rx Last Taken Unknown] Allergy/AdvReac Type Severity Reaction Status Date / Time hydralazine HCl Allergy Other Verified 04/11/23 17:15 [From Apresoline] ondansetron [From Zofran] AdvReac Nausea Verified 04/11/23 17:15 Family History Mother Diabetes Heart disease Hypertension Father Diabetes Heart disease Hypertension Surgical History History of cardiac catheterization History of cardiac radiofrequency ablation History of hip replacement History of quadruple bypass History of total left hip replacement Hx of CABG Hx of cholecystectomy Hx of colonoscopy Hx of tubal ligation Social History household members: none housing: house number of children: 3 Smoking Status: Former smoker alcohol intake: never substance use type: does not use ROS ROS Narrative REVIEW OF SYSTEMS General - Denies fever, fatigue, and weight loss. Eyes - Denies cataracts and glaucoma. ENT - Denies nasal congestion and sore throat. Endocrine - Denies excessive thirst and urination. Skin - Denies suspicious lesions and skin cancer. Musculoskeletal - Denies joint pain, joint stiffness, weakness of muscles and joints, back pain, and arthritis. Neuro - Denies headaches. Cardiovascular - Denies chest pain, fatigue, and shortness of breath with exertion. Psych - Denies anxiety and depression. Respiratory - Denies chronic cough and shortness of breath. Gastrointestinal - Denies nausea, vomiting, diarrhea, and constipation. Hematologic - Denies abnormal bruising and bleeding. Genitourinary - Denies hematuria and urinary frequency. Physical Exam Narrative PHYSICAL EXAMINATION General - Alert and Oriented HEENT - PERRL. EOMI. Throat is clear. Neck - Supple and nontender. No cervical adenopathy. Lungs - Clear to auscultation. Heart - Regular rate and rhythm. Abdomen - Soft and nondistended. Extremities - FROM. No axillary adenopathy. Radial pulses are palpable. Neuro - CN II-XII grossly intact. Psych - Normal mood and affect. Medical Records Data Attestation: I reviewed the patient's medical records Lab / Micro Data Attestation: I reviewed the patient's lab results. 04/19/23 06:12 04/19/23 06:12 Labs: Laboratory Results - last 24 hr 04/18/23 22:25: POC Glucose 164 H 04/19/23 06:12: WBC 5.4, RBC 2.57 L, Hgb 7.2 L, Hct 24.3 L, MCV 94.6, MCH 28.0, MCHC 29.6 L, RDW Std Deviation 54.3 H, RDW Coeff of Kevyn 15.8 H, Plt Count 322, MPV 9.9, Immature Gran % (Auto) 2.000 H, Neut % (Auto) 69.5, Lymph % (Auto) 14.9 L, [place] % (Auto) 12.1 H, Eos % (Auto) 0.6, Baso % (Auto) 0.9, Absolute Neuts (auto) 3.7, Absolute Lymphs (auto) 0.80 L, Nucleated RBC % 0, Sodium 138, Potassium 4.1, Chloride 108 H, Carbon Dioxide 25.0, Anion Gap 5, BUN 28 H, Creatinine 1.34 H, Estim Creat Clear Calc 38.28, Est GFR (MDRD) Af Amer 50 L, Est GFR (MDRD) Non-Af 41 L, BUN/Creatinine Ratio 20.9 H, Glucose 161 H, Calcium 8.4 L 04/19/23 06:20: POC Glucose 162 H 04/19/23 08:01: POC Glucose 142 H 04/19/23 11:17: POC Glucose 256 H 04/19/23 16:17: POC Glucose 239 H 04/19/23 21:07: POC Glucose 141 H Micro: Microbiology 04/13/23 16:00 Wound Drainage - Knee Gram Stain - Final 04/13/23 16:00 Wound Drainage - Knee Wound Culture - Final No growth aerobically. 04/13/23 16:00 Wound Drainage - Knee Anaerobic Culture - Final No growth in 5 days.
--- NOTE | 2023-04-20 00:47 | CON.PCM_ITS ---
Assessment & Plan Assessment/Plan (1) Open wound of right knee with complication: QUALIFIERS: Encounter type: subsequent encounter Qualified Code(s): S81.001D - Unspecified open wound, right knee, subsequent encounter (2) Hematoma of right knee region: (3) Diabetes mellitus: (4) Anemia of chronic disease: (5) Cellulitis of right lower extremity: (6) Obesity: (7) Anticoagulant long-term use: PLAN: Plan Patient has a open surgical hematoma wound right medial knee. Will continue the VAC until the wound is more superficial and then proceed with delayed closure with skin grafting. She has diabetes mellitus. Her HgbA1c is 6.9. For elective surgery it needs to be less than 8. Anticipate increased metabolic demands from the wound. Will check a Prealbumin and encourage nutritional supplementation with protein to help the healing process. After discharge she [facility]. Healing this wound may take 6 months or longer. Hopefully we can stabilize the wound sooner than that in order to skin graft the wound. Patient was informed of the risks and complications of the procedure including alternatives to surgery. These were discussed with the patient personally. Patient voices understanding and wishes to proceed. She has anemia of chronic disease. Before the skin graft surgery, PRBC may be given. HPI Consult Data Date of Consult: 04/22/23 PCP / Referring MD: Dr. Tyrese Gallegos, HPI Narrative Reason for Consultation: Open surgical hematoma wound right medial knee HPI Narrative: The patient is a 72 y/o woman with a history of diabetes, was admitted to the hospital with increasing redness and swelling and pain in her right medial knee after a mechanical fall. She is on anticoagulation and with the fall, she sustained a hematoma. When she initially came to the ED, she was given a script for Keflex and Bactrim. When she failed outpatient therapy with po antibiotics, she was admitted the next time she came to the ED. She was started on Vanco mycin and Rocephin. Her WBC was 5.6. Hgb was 8.6. Her HgbA1c was 6.9 on 04/13/23. Dr. Gallegos from Orthopedics was consulted for this hematoma right medial knee. He proceeded with an I&D and evacuation of the hematoma. Wound care was started and a few days later he took her back to surgery to attempt closure of the wound. Her skin was thin and not very strong. He had difficulty with closure because the skin was tearing as there was too much tension from the swelling and from her obesity. So a VAC was applied and he consulted me to evaluate this patient for chronic wound care and for surgical options for wound closure. [facility] Medical History (Updated 04/22/23 @ 23:[address] Murray Bentley MD) Anemia Anemia of chronic disease Anticoagulant long-term use Anxiety and depression Arthritis Atrial fibrillation CAD (coronary artery disease) CPAP (continuous positive airway pressure) dependence Diabetes mellitus DVT (deep venous thrombosis) Failure of outpatient treatment Hematoma of right knee region History of stress incontinence Hx of necrotizing fasciitis Hypertension Hypothyroidism Insulin dependent diabetes mellitus Open wound of right knee with complication PAF (paroxysmal atrial fibrillation) Restless legs Stage 3b chronic kidney disease (CKD) Traumatic hematoma of right knee Wears dentures Home Medications atorvastatin 40 mg tablet 40 mg PO QHS Cholesterol 09/07/14 [History Last Taken 04/06/23] fenofibric acid (choline) 135 mg capsule,delayed release (Trilipix) 135 mg PO DAILY Cholesterol 09/07/14 [History Last Taken 04/06/23] levothyroxine 175 mcg tablet 200 mcg PO DAILY Thyroid 04/12/20 [History Last Taken 04/06/23] bumetanide 0.5 mg tablet 0.5 mg PO DAILY BP 02/17/21 [History Last Taken 04/06/23] insulin glargine U-300 conc 300 unit/mL (1.5 mL) subcutaneous pen (Toujeo SoloStar U-300 Insulin) 30 unit subcut QHS Diabetes 02/17/21 [History Last Taken 04/06/23] insulin lispro 100 unit/mL subcutaneous solution 25 unit subcut DINNER Diabetes 02/17/21 [History Last Taken 04/06/23] insulin lispro 100 unit/mL subcutaneous solution (Humalog U-100 Insulin) 12 unit subcut BREAKFAST Diabetes 02/17/21 [History Last Taken 04/06/23] acetaminophen 500 mg tablet 1,000 mg (2 x 500 mg) PO Q6H PRN PRN Pain Score 1-5 #0 tabs 05/14/21 [Rx Last Taken 04/06/23] insulin lispro 100 unit/mL subcutaneous pen 18 unit subcut LUNCH diabetes 05/30/21 [History Last Taken 04/06/23] rivaroxaban 15 mg tablet (Xarelto) 20 mg PO DAILY blood thinner 05/30/21 [History Last Taken 04/06/23] amiodarone 200 mg tablet 100 mg PO DAILY hrt 11/12/21 [History Last Taken 04/06/23] insulin lispro 100 unit/mL subcutaneous pen (Humalog KwikPen (U-100) Insulin) See Protocol subcut 4X/DAYCM dm #0 mL 04/09/23 [Rx Last Taken Unknown] oxycodone 5 mg tablet 5 mg PO Q4H PRN PRN Pain Score 4-10 3 days #12 tabs 04/09/23 [Rx Last Taken Unknown] sennosides 8.6 mg-docusate sodium 50 mg tablet (Stool Softener-Stimulant Laxative) 2 tab PO BID PRN PRN Constipation #0 tabs 04/09/23 [Rx Last Taken Unknown] lisinopril 10 mg tablet 10 mg PO DAILY bp 04/11/23 [History Last Taken Unknown] ofloxacin 0.3 % eye drops 1 drp ophthalmic (eye) Q6H eye 04/11/23 [History Last Taken Unknown] prednisolone acetate 1 % eye drops,suspension 1 drp ophthalmic (eye) BID eye 04/11/23 [History Last Taken Unknown] sodium chloride 5 % eye drops 1 drp ophthalmic (eye) BID eye 04/11/23 [History Last Taken Unknown] ascorbic acid (vitamin C) 500 mg tablet 500 mg PO BID 30 days #60 tabs 04/21/23 [Rx Last Taken Unknown] cephalexin 500 mg tablet 500 mg PO Q8H cellulitis 1 day #3 tabs 04/21/23 [Rx Last Taken Unknown] ferrous sulfate 325 mg (65 mg iron) tablet (FeroSul) 325 mg PO DAILY@1200 #30 tabs 04/21/23 [Rx Last Taken Unknown] rivaroxaban 10 mg tablet (Xarelto) 10 mg PO DINNER 30 days #30 tabs 04/21/23 [Rx Last Taken Unknown] Allergy/AdvReac Type Severity Reaction Status Date / Time hydralazine HCl Allergy Other Verified 04/11/23 17:15 [From Apresoline] ondansetron [From Zofran] AdvReac Nausea Verified 04/11/23 17:15 Family History Mother Diabetes Heart disease Hypertension Father Diabetes Heart disease Hypertension Surgical History History of cardiac catheterization History of cardiac radiofrequency ablation History of hip replacement History of quadruple bypass History of total left hip replacement Hx of CABG Hx of cholecystectomy Hx of colonoscopy Hx of tubal ligation Social History household members: none housing: house number of children: 3 Smoking Status: Former smoker alcohol intake: never substance use type: does not use ROS ROS Narrative REVIEW OF SYSTEMS General - Denies fever, fatigue, and weight loss. Eyes - Denies cataracts and glaucoma. ENT - Denies nasal congestion and sore throat. Endocrine - Denies excessive thirst and urination. Skin - Denies suspicious lesions and skin cancer. Musculoskeletal - Denies joint pain, joint stiffness, weakness of muscles and joints, back pain, and arthritis. Neuro - Denies headaches. Cardiovascular - Denies chest pain, fatigue, and shortness of breath with exertion. Psych - Denies anxiety and depression. Respiratory - Denies chronic cough and shortness of breath. Gastrointestinal - Denies nausea, vomiting, diarrhea, and constipation. Hematologic - Denies abnormal bruising and bleeding. Genitourinary - Denies hematuria and urinary frequency. Physical Exam Narrative PHYSICAL EXAMINATION General - Alert and Oriented HEENT - PERRL. EOMI. Throat is clear. Neck - Supple and nontender. No cervical adenopathy. Lungs - Clear to auscultation. Heart - Regular rate and rhythm. Abdomen - Soft and nondistended. Extremities - Edema in her lower extremities. On the right medial knee is a hematoma wound. Appears clean at this time. The surrounding skin is very thin and friable. There is still some redness superiorly and I was told it looked a lot worse before the I&D procedure. On the superior and inferior ends of the wound are some surgical clips. They can be removed since they won't be of any use at this time and they can only get in the way of healing. By opening the rest of the wound up will make it easier for the VAC to have maximum effects in the healing of this hematoma wound. Neuro - CN II-XII grossly intact. Psych - Normal mood and affect. Medical Records Data Attestation: I reviewed the patient's medical records Lab / Micro Data Attestation: I reviewed the patient's lab results. 04/20/23 05:38 04/20/23 05:38 Labs: Laboratory Results - last 24 hr 04/21/23 11:31: POC Glucose 163 H Charges/Coding Visit Charges Inpatient E&M: 37813 Init Hosp L2 (ICD-10 - S81.001A, S80.01xA, E11.9, D63.8, L03.115, E66.9, Z79.01)
[2023-04-20 03:10] VITALS: BP 146/57; PULSE 57; RESP 16; TEMP 36.5; O2SAT 100
[2023-04-20] MEDS: Levothyroxine 100 MCG Tablet 200 MCG PO (05:41)
[2023-04-20 06:00] VITALS: BMI 46.5
[2023-04-20 06:06] LABS: Absolute Lymphocyte Count 0.92 X10^3/uL (0.83-4.51); Absolute Neutrophil Count 3.8 X10^3/uL (2.0-7.7); Basophil# 0.05 X10^3/uL; Basophil% 0.9 % (0-1); Eosinophil# 0.03 X10^3/uL; Eosinophils% 0.5 % (0-5); Hematocrit 23.7 % (37-47); Hemoglobin 7.1 g/dL (12.0-15.0); Lymphocyte # 0.92 X10^3/ul (0.83-4.51); Lymphocyte % 16.3 % (19-41); Mean Corpuscular Hgb 28.4 pg (27.0-32.0); Mean Corpuscular Volume 94.8 fL (81-99); Mean Platelet Vol. 10.1 fl (6.2-12.0); Monocyte# 0.71 X10^3/uL; Monocyte% 12.6 % (0-10); NRBC Flagged by Analyzer 0.4 % (0-5); Neutrophil # 3.82 X10^3/uL (2.7-7.7); Neutrophil % 67.6 % (47-70); Platelet Count 307 K/mm3 (150-450); RBC Distribution Width CV 16.1 % (11.6-14.6); White Blood Count 5.7 K/mm3 (4.4-11.0)
[2023-04-20 06:39] LABS: Anion Gap 4 (5-15); BUN 33 mg/dL (7-18); BUN/Creat Ratio 26.2 RATIO (10-20); Calcium,Total 8.4 mg/dL (8.5-10.1); Chloride 107 mmol/L (98-107); Creatinine, Serum 1.26 mg/dL (0.55-1.02); EST Glomerular Filtration Rate 44 mL/min (>60); Est Glom Filt Rate - Afr Amer 54 mL/min (>60); Estimated Creatinine Clearance 40.71 ml/min; Glucose 146 mg/dL (74-106); Prealbumin 12.5 mg/dL (20.0-40.0); Sodium Level 138 mmol/L (136-145)
[2023-04-20 08:10] VITALS: BP 155/59; PULSE 57; RESP 17; TEMP 36.8; O2SAT 97
[2023-04-20] MEDS: Juven (unflavored) Packet 1 PACKET PO ×2 (08:22→17:36)
[2023-04-20] MEDS: Fenofibrate 145 MG Tablet PO (08:23)
[2023-04-20] MEDS: Amiodarone 200 MG Tablet 100 MG PO (08:23)
[2023-04-20] MEDS: Lisinopril 10 MG Tablet PO (08:23)
[2023-04-20] MEDS: Glycerin/Hypromellose/PEG400 15 ml Bottle 1 DRP EACH EYE ×2 (08:23→22:21)
[2023-04-20] MEDS: Cephalexin 500 MG Capsule PO (08:23)
[2023-04-20] MEDS: Insulin Lispro 100 UNIT/ML INSULN.PEN 12 UNIT SC (08:26)
[2023-04-20] MEDS: Insulin Lispro 100 UNIT/ML INSULN.PEN SC ×2 (08:26→12:39)
[2023-04-20] MEDS: Menthol/Lanolin/Calamine/Znox 113 GM Tube 1 APPLIC TOPICAL ×2 (08:29→22:21)
[2023-04-20] MEDS: Nystatin Powder 15gm Bottle 1 APPLIC TOPICAL ×2 (08:30→22:22)
[2023-04-20 08:57] LABS: Bedside Glucose 155 mg/dL (74-106)
--- NOTE | 2023-04-20 10:08 | CASEMGMT ---
Social Work SW spoke with TCU and precert determination has not yet been made. SW met with pt and updated. Discussed with pt the possibility that pt will be denied and inquired if pt can return home. SW discussed home health services. Pt expressing understanding. SW to continue to follow for d/c planning. Plan: TCU, pending precert CHIKI Covarrubias
[2023-04-20 10:32] VITALS: O2SAT 96
--- NOTE | 2023-04-20 11:44 | PN.HOSP_ITS ---
Reason for Visit Reason for Visit: Diagnoses Essential (primary) hypertension (04/11/23) Atherosclerotic heart disease of [place] coronary artery without angina pectoris (04/11/23) Pulmonary hypertension, unspecified (04/11/23) Unspecified atrial fibrillation (04/11/23) Cellulitis of right lower limb (04/11/23) Cellulitis, unspecified (04/11/23) Nausea with vomiting, unspecified (04/11/23) Contusion of right knee, initial encounter (04/11/23) Contusion of right lower leg, initial encounter (04/11/23) Unspecified open wound, right knee, subsequent encounter (04/11/23) Other specified health status (04/11/23) Objective Data Objective Data Vital Signs: Vital Signs Temp Pulse Resp BP Pulse Ox O2 Del Method O2 Flow Rate 98.2 F 57 L 17 155/59 H 96 Room Air 2 04/20/23 08:10 04/20/23 08:10 04/20/23 08:10 04/20/23 08:10 04/20/23 10:32 04/20/23 08:33 04/13/23 18:40 Oxygen Flow Rate (L/min) 2 Oxygen Delivery Method Room Air Weight: 307 lb 1.663 oz Body Mass Index (BMI) 46.5 Intake & Output: Intake and Output for Last 24 Hours 04/18/23 04/19/23 04/20/23 23:59 23:59 23:59 Intake Total 1935 / 2235 1470 / 1470 Output Total 1400 / 1400 Balance 1935 / 2235 70 / 70 Lab / Micro Data 04/20/23 05:38 04/20/23 05:38 Labs: Laboratory Results - last 24 hr 04/19/23 16:17: POC Glucose 239 H 04/19/23 21:07: POC Glucose 141 H 04/20/23 05:38: WBC 5.7, RBC 2.50 L, Hgb 7.1 L, Hct 23.7 L, MCV 94.8, MCH 28.4, MCHC 30.0 L, RDW Std Deviation 55.0 H, RDW Coeff of Kevyn 16.1 H, Plt Count 307, MPV 10.1, Immature Gran % (Auto) 2.100 H, Neut % (Auto) 67.6, Lymph % (Auto) 16.3 L, [place] % (Auto) 12.6 H, Eos % (Auto) 0.5, Baso % (Auto) 0.9, Absolute Neuts (auto) 3.8, Absolute Lymphs (auto) 0.92, Nucleated RBC % 0.4, Sodium 138, Potassium 4.0, Chloride 107, Carbon Dioxide 27.0, Anion Gap 4 L, BUN 33 H, Creatinine 1.26 H, Estim Creat Clear Calc 40.71, Est GFR (MDRD) Af Amer 54 L, Est GFR (MDRD) Non-Af 44 L, BUN/Creatinine Ratio 26.2 H, Glucose 146 H, Calcium 8.4 L, Prealbumin 12.5 L 04/20/23 08:22: POC Glucose 155 H Micro: Microbiology 04/13/23 16:00 Wound Drainage - Knee Gram Stain - Final 04/13/23 16:00 Wound Drainage - Knee Wound Culture - Final No growth aerobically. 04/13/23 16:00 Wound Drainage - Knee Anaerobic Culture - Final No growth in 5 days. 04/11/23 18:51 Blood Culture (Wb) - Anticubital Right Blood Culture - Final No growth in 5 days. 04/11/23 18:52 Blood Culture (Wb) - Left Hand Blood Culture - Final No growth in 5 days. Physical Exam Narrative Patient has right knee deformity after surgery. Dressing and wound VAC was changed today. Patient feels mild softness above wound VAC. Physical Examination: General: Alert, Oriented x3, Cooperative HEENT: Atraumatic, PERRLA, EOMI, Normocephalic Oral: No Gingival or Mucosal Lesions/ Ulcerations Neck: Thyroidectomy surgical scar supple, No JVD, Negative Carotid Bruits Lungs: Air entry diminished in bilateral lung bases. No crepitation/rhonchi Cardiovascular: Quadruple surgical scar. Regular rate, Regular Rhythm, Normal S 1, Normal S2, No murmurs Abdomen: Bowel Sounds Present, Soft, Non Tender, Non-Distended : No renal angle tenderness. No suprapubic tenderness. Extremities: No edema, Capillary Refill Less than 3 Seconds Skin: Right knee surgical scar. Musculoskeletal: Softness proximal to the wound drain, cystic/fluid consistency on palpation. New wound VAC. Right knee deformity, lost its usual contour. No Tenderness to Palpation of Joints or Extremities Neurological: Cranial nerves II-XII grossly intact, DTR 2+/4 and Symmetrical, Neuro grossly intact Psych/Mental Status: Flat affect. Assessment & Plan Assessment/Plan (1) Cellulitis of right lower extremity: (2) Nausea and vomiting: QUALIFIERS: Vomiting type: unspecified Qualified Code(s): R11.2 - Nausea with vomiting, unspecified (3) Hematoma of right lower leg: PLAN: Plan Right lower extremity cellulitis with concern for infected hematoma of the right knee Blood culture negative for 5 days. Surgical culture is also negative for more than 48 hours. Fungal culture pending. Patient was on vancomycin and ceftriaxone changed to Keflex started on 04/17/2023 for 5 days. Patient was seen and evaluated by ID. Patient was also on Bactrim Keflex prior to admission. -Evacuation of hematoma is completed on 04/13/2023 however wound closure was not possible due to the size and wound VAC placed Patient was taken to the OR on 04/16/2023 for attempted closure however unfortunately this was not able to be performed and she will need ongoing wound VAC 04/20: Dressing and wound VAC was changed. 04/21: Feels mild softness around her right femoral condyle anteriorly. Orthopedics surgeon Dr. Doty was called and left voice message for awareness. Large right knee hematoma -Hematoma was evacuated on 04/13/2023 Xarelto was started low-dose 10 mg daily today evening. If patient tolerates we will increase to full dose 20 mg daily. Lovenox discontinued. Debility/fall/generalized weakness -PT/OT following, weightbearing per orthopedic surgery -Current plan is to transitional care unit once pre-CERT is obtained--> patient has been medically ready since 04/16/2023 -Case management/social work following Acute on chronic anemia -Patient with chronic anemia appearing to have his hemoglobin at baseline between 8 and 10 Patient is states usually her hemoglobin is around 8-9 gram percent.In the hospital she is around 7.2. Iron infusion ordered. Was transfused 2 packed units during last hospitalization. If hemoglobin drops less than 7 g will need PRBC transfusion. 04/19: Hemoglobin is still on lower side 7.2. IV iron 1 dose ordered. Continue low-dose Xarelto. 04/20: Started on oral iron. Patient had 2 dosages of IV iron and PRBC transfusion. CHRISTIAN on CKD stage II -CHRISTIAN has resolved -Baseline serum creatinine appears to be between 0.9 and 1.1 -Creatinine is overall relatively stable -Continue to monitor -Continue home Bumex and lisinopril 04/19: Creatinine 1.34. Creatinine is gradually increasing. Patient admitted with creatinine 1.45, decreased to 1.03 and then gradually going up to 1.34. Monitor kidney function daily. Paroxysmal atrial fibrillation -Continue home amiodarone -Xarelto on hold due to bleeding -Currently in normal sinus rhythm CAD/HTN/HPL -Status post quadruple bypass in 2017 -Continue home fenofibric acid -Restart home Bumex -Restart home lisinopril KASANDRA -Patient does not tolerate CPAP -Is untreated at baseline -Encouraged outpatient follow-up DM-2 -Hold oral regimen -Continue basal insulin 30 units nightly -174 fasting today however her blood sugars increase the day after surgery last time as well we will continue to monitor -Hemoglobin A1c on 04/13/2023 was 6.9 so it appears that she is very well controlled on her baseline home regimen however her anemia could complicate the interpretation of this making her hemoglobin A1c lower than actually has been -Continue prandial insulin scheduled -SSI -Cardiac/carb controlled diet -Accu-Chek as ordered DVT prophylaxis -We will start subcu Lovenox and if tolerates well transition to Eliquis for full anticoagulation at the time of discharge CODE STATUS Full code Charges/Coding Visit Charges Inpatient E&M: 91444 Subs Hosp L2
[2023-04-20 12:15] LABS: Bedside Glucose 192 mg/dL (74-106)
[2023-04-20] MEDS: Insulin Lispro 100 UNIT/ML INSULN.PEN 18 UNIT SC (12:38)
[2023-04-20] MEDS: prednisoLONE eye drops (5 mL) 1 DROP OPTH.BTL 1 DRP OPHTHALMIC ×2 (12:39→22:23)
[2023-04-20] MEDS: Ferrous Sulfate 325 MG Tablet PO (12:43)
--- NOTE | 2023-04-20 13:53 | CASEMGMT ---
Discharge Planning HH list created and sent to RN CM. Josie Rubin, Discharge Planning Asst.
--- NOTE | 2023-04-20 14:33 | PCM.PN.ORT ---
Subjective Subjective I was asked to see the patient today in regard to anterior knee swelling, no fevers or chills. Wound VAC was changed yesterday without concern. Discussed case with wound care nurse. Objective Data Objective Data Vital Signs: Vital Signs Temp Pulse Resp BP Pulse Ox O2 Del Method O2 Flow Rate 98.2 F 57 L 17 155/59 H 96 Room Air 2 04/20/23 08:10 04/20/23 08:10 04/20/23 08:10 04/20/23 08:10 04/20/23 10:32 04/20/23 08:33 04/13/23 18:40 Oxygen Flow Rate (L/min) 2 Oxygen Delivery Method Room Air Weight: 307 lb 1.663 oz Body Mass Index (BMI) 46.5 Intake & Output: Intake and Output for Last 24 Hours 04/18/23 04/19/23 04/20/23 23:59 23:59 23:59 Intake Total 1935 / 2235 1470 / 1470 300 / 300 Output Total 1400 / 1400 Balance 1935 / 2235 70 / 70 300 / 300 Lab / Micro Data 04/20/23 05:38 04/20/23 05:38 Labs: Laboratory Results - last 24 hr 04/19/23 16:17: POC Glucose 239 H 04/19/23 21:07: POC Glucose 141 H 04/20/23 05:38: WBC 5.7, RBC 2.50 L, Hgb 7.1 L, Hct 23.7 L, MCV 94.8, MCH 28.4, MCHC 30.0 L, RDW Std Deviation 55.0 H, RDW Coeff of Kevyn 16.1 H, Plt Count 307, MPV 10.1, Immature Gran % (Auto) 2.100 H, Neut % (Auto) 67.6, Lymph % (Auto) 16.3 L, Cascade % (Auto) 12.6 H, Eos % (Auto) 0.5, Baso % (Auto) 0.9, Absolute Neuts (auto) 3.8, Absolute Lymphs (auto) 0.92, Nucleated RBC % 0.4, Sodium 138, Potassium 4.0, Chloride 107, Carbon Dioxide 27.0, Anion Gap 4 L, BUN 33 H, Creatinine 1.26 H, Estim Creat Clear Calc 40.71, Est GFR (MDRD) Af Amer 54 L, Est GFR (MDRD) Non-Af 44 L, BUN/Creatinine Ratio 26.2 H, Glucose 146 H, Calcium 8.4 L, Prealbumin 12.5 L 04/20/23 08:22: POC Glucose 155 H 04/20/23 11:22: POC Glucose 192 H Micro: Microbiology 04/13/23 16:00 Wound Drainage - Knee Gram Stain - Final 04/13/23 16:00 Wound Drainage - Knee Wound Culture - Final No growth aerobically. 04/13/23 16:00 Wound Drainage - Knee Anaerobic Culture - Final No growth in 5 days. 04/11/23 18:51 Blood Culture (Wb) - Anticubital Right Blood Culture - Final No growth in 5 days. 04/11/23 18:52 Blood Culture (Wb) - Left Hand Blood Culture - Final No growth in 5 days. Physical Exam Const alert, oriented x3 and no apparent distress Extremity Extremity Narrative: Right knee wound VAC with good seal. Cellulitis appears to be improving. She does have some bursitis of the anterior knee . I do not see signs of abscess formation. Patient has poor circulation resulting in edema from the trauma and surgery. Remains neurovascular intact. Assessment & Plan Assessment/Plan (1) Open wound of right knee with complication: QUALIFIERS: Encounter type: subsequent encounter Qualified Code(s): S81.001D - Unspecified open wound, right knee, subsequent encounter PLAN: Plan Status post evacuation of hematoma wound VAC application There is some bursitis of the anterior knee and edema from trauma and surgery which is led to some anterior knee swelling. I do not see any need for further surgical intervention at this time. She will follow-up with wound care clinic, I appreciate consultation with Dr. Bentley for continued management of this open wound. Continue current antibiotic regimen.
[2023-04-20 14:45] VITALS: BP 138/53; PULSE 64; RESP 18; TEMP 37; O2SAT 97
--- NOTE | 2023-04-20 14:49 | CASEMGMT ---
RN BONI into pt room, pt sitting up in chair. Pt aware of peer to peer being completed, should this be denied, pt was provided a list of [facility] providers including quality and resource use data and consistent with the patient?s preferred geographic region, medical needs, and insurance network were provided [facility] to chose from. Pt aware of request of top 3 preferences. RN BONI/LORI to follow pending peer to peer decision.
--- NOTE | 2023-04-20 16:07 | CASEMGMT ---
Social Work Pt case has been sent to Peer to Peer. Physician updated and completed Peer to Peer. Pt denied admission to TCU. LORI met with pt and updated. Pt is agreeable to home with home health and Pt preferred provider is [facility]. Referral made to [facility] and awaiting determination of acceptance. LORI spoke with Negrita wound RN and updated that pt will need a home wound vac. Pt aware discharge will likely be tomorrow once wound vac and home health are secured. CHIKI Covarrubias
[2023-04-20 17:11] LABS: Bedside Glucose 140 mg/dL (74-106)
[2023-04-20] MEDS: Insulin Lispro 100 UNIT/ML INSULN.PEN 25 UNIT SC (17:35)
[2023-04-20] MEDS: Rivaroxaban 10 MG Tablet PO (17:35)
[2023-04-20 20:25] VITALS: BP 142/67; PULSE 64; RESP 18; TEMP 36.7; O2SAT 100
[2023-04-20] MEDS: Atorvastatin Calcium 40 MG Tablet PO (22:22)
[2023-04-21] MEDS: oxyCODONE 5 MG Tablet PO (00:10)
[2023-04-21 00:38] LABS: Bedside Glucose 91 mg/dL (74-106)
[2023-04-21 02:36] VITALS: BP 132/55; PULSE 56; RESP 16; TEMP 36.6; O2SAT 98
[2023-04-21 06:00] VITALS: BMI 46.5
[2023-04-21] MEDS: Levothyroxine 100 MCG Tablet 200 MCG PO (06:15)
--- NOTE | 2023-04-21 07:14 | DCINST_ITS ---
Discharge Instructions Diet Discharge Diet: 1800 Calorie Control Diet and 2000 mg Sodium Diet Activity Discharge Activity: Return to Normal Activity Weight Bearing Status: Weight bearing as tolerated Dressing / Incision Call your doctor if you observe: Fever of 101 or Higher, Coldness, Increased Pain, Numbness or Tingling, Change in Color, Inability to urinate, Inability to have a bowel movement, Using more than 1 pad per hour, Shortness of breath, Dizziness, Fainting spells, Swelling in the ankles, Chest pain, Prolonged hiccupping, Increased palpitations (irregular heartbeat) and Calf discomfort Follow Up Care When: IN 2 WEEKS Test Results: Test results from this visit will be discussed in further detail at your follow- up appointment, if applicable. Discharge Plan Admission Admit Date/Time: 04/11/23 20:35 Attending Provider: Donny Feng Primary Care Provider: Maggi Chicas Consulting Providers: Tyrese Gallegos; Toshia Conroy; Elroy Judd; Juanjose Tolbert; Murray Bentley; Irene Julio Instructions Additional Instructions / Restrictions: Home PT and OT. Xarelto dose decreased to 10 mg daily with weekly CBC. Hold it if hemoglobin less than 7 g or platelet less than 50,000 or external/knee joint bleeding episode. She was admitted with right knee hematoma which is controlled. Discharge Orders/Prescriptions Prescriptions: New ferrous sulfate [FeroSul] 325 mg (65 mg iron) Tablet 325 mg PO DAILY@1200 Qty: 30 2RF ascorbic acid (vitamin C) 500 mg tablet 500 mg PO BID 30 Days Qty: 60 2RF Xarelto 10 mg Tablet 10 mg PO DINNER 30 Days Qty: 30 0RF Rx Instructions: Discontinue if platelet count drops less than 50,000 or hemoglobin less than 7.0 g% Continued atorvastatin 40 MG tablet 40 mg PO QHS Patient Comments: CHOLESTEROL LOWERING fenofibric acid (choline) [Trilipix] 135 MG capsule,delayed release(DR/EC) 135 mg PO DAILY Patient Comments: cholesterol levothyroxine 175 MCG tablet 200 mcg PO DAILY bumetanide 0.5 mg Tablet 0.5 mg PO DAILY insulin lispro [Humalog U-100 Insulin] 100 unit/mL Solution 12 unit SUBCUT BREAKFAST insulin lispro 100 unit/mL Solution 25 unit SUBCUT DINNER Toujeo SoloStar U-300 Insulin 300 unit/mL (1.5 mL) Insulin Pen 30 unit SUBCUT QHS acetaminophen 500 mg Tablet 1,000 mg PO Q6H PRN PRN (Reason: Pain Score 1-5) Qty: 0 0RF insulin lispro 100 unit/mL Insulin Pen 18 unit SUBCUT LUNCH amiodarone 200 mg tablet 100 mg PO DAILY Patient Comments: TAKE 1 TABLET DAILY oxycodone 5 mg Tablet 5 mg PO Q4H PRN PRN (Reason: Pain Score 4-10) 3 Days Qty: 12 0RF insulin lispro [Humalog KwikPen Insulin] 100 unit/mL Insulin Pen See Protocol subcut 4X/DAYCM Qty: 0 0RF Protocol: 3. Sliding Scale Insulin Med Dosing Condition: 150-189 mg/dl = 1 unit Condition: 190-229 mg/dl = 2 units Condition: 230-269 mg/dl = 3 units Condition: 270-309 mg/dl = 4 units Condition: 310-349 mg/dl = 5 units Condition: 350-399 mg/dl = 6 units Condition: 400-449 mg/dl = 7 units Condition: Greater than 449 call physician Protocol Text: - Use for Total Daily Dose of Insulin 37-55 units - Obsese, infected, or steroid patients MEDIUM DOSING ALGORITHIM sennosides-docusate sodium [Stool Softener-Stimulant Laxat] 8.6-50 mg Tablet 2 tab PO BID PRN PRN (Reason: Constipation) Qty: 0 0RF lisinopril 10 mg tablet 10 mg PO DAILY Patient Comments: TAKE 1 TABLET DAILY prednisolone acetate 1 % drops,suspension 1 drp ophthalmic (eye) BID Patient Comments: Instill 1 drop in right eye(s) twice daily sodium chloride 5 % drops 1 drp ophthalmic (eye) BID Patient Comments: instill 1 (ONE) DROP IN THE RIGHT EYE TWICE DAILY ofloxacin 0.3 % drops 1 drp ophthalmic (eye) Q6H Patient Comments: APPLY 1 (ONE) DROP IN OPERATIVE EYE FOUR TIMES DAILY, START AFTER SURGERY cephalexin 500 mg tablet 500 mg PO Q8H 1 Days Qty: 3 0RF Held Xarelto 15 mg tablet 20 mg PO DAILY Hold Instructions: Hold it until hemoglobin improves more than 8 g and creatinine clearance more than 50 mill per minute. Discontinued doxycycline monohydrate 100 mg capsule 100 mg PO DAILY Qty: 30 0RF sulfamethoxazole-trimethoprim [Bactrim DS] 800-160 mg tablet 1 tab PO BID 7 Days Qty: 14 0RF Referrals / Follow Up: Murray Bentley MD [Med Staff - Active Staff] - 04/26/23 3:15 pm [facility] Maggi Chicas DO [Primary Care Provider] - Disposition Disposition (needs filled in before D/C Order can be placed): Home Health Service
[2023-04-21 08:41] VITALS: BP 145/55; PULSE 53; RESP 18; TEMP 36.6; O2SAT 99
[2023-04-21] MEDS: Insulin Lispro 100 UNIT/ML INSULN.PEN 12 UNIT SC (08:47)
[2023-04-21] MEDS: Juven (unflavored) Packet 1 PACKET PO (08:48)
[2023-04-21] MEDS: Glycerin/Hypromellose/PEG400 15 ml Bottle 1 DRP EACH EYE (08:48)
[2023-04-21] MEDS: Nystatin Powder 15gm Bottle 1 APPLIC TOPICAL (08:49)
[2023-04-21] MEDS: Menthol/Lanolin/Calamine/Znox 113 GM Tube 1 APPLIC TOPICAL (08:49)
[2023-04-21] MEDS: Fenofibrate 145 MG Tablet PO (08:52)
[2023-04-21] MEDS: prednisoLONE eye drops (5 mL) 1 DROP OPTH.BTL 1 DRP OPHTHALMIC (08:52)
--- NOTE | 2023-04-21 09:09 | CASEMGMT ---
Addendum entered by Dee Negro 04/21/23 09:36: Received tc from Daysi at [facility], they will accept pt for SOC tomorrow. Pt updated. Original Note: Received tc from Daysi at [facility], questioning pt address, if she is going to the [facility] and if she has a teachable cg. FLORESITA CM into pt room, updated pt address, pt grandson who is in his 20's is living with her and she states he would be the teachable cg for the wound vac if it were to leak. Pt will follow up with the [facility]. TC to [facility], spoke with Nicole, scheduled appt for 04/26 at 3:15pm. Pt aware of appt and placed on dc instructions. TC to pt alyce Pang, unable to leave a message. TC to Daysi at [facility], left message with above information.
[2023-04-21] MEDS: Lisinopril 10 MG Tablet PO (09:34)
[2023-04-21] MEDS: Amiodarone 200 MG Tablet 100 MG PO (09:34)
--- NOTE | 2023-04-21 11:30 | PCM.DC.SUM ---
Providers Date of Admission: 04/11/23 Date of Discharge: 04/21/23 Primary Care Physician: Dr. Maggi Chicas, Consultations 04/11/23 22:09 Consult: Orthopedics Routine Consulting Provider: Tyrese Gallegos Reason for Consult: Now cellulitis RLE, concern possible infected hematoma component. EMERGENT Consult: No MD Notified: Yes Date Notified: 04/11/23 Time Notified: 20:36 Method of Notification: Text 04/12/23 15:39 Consult: Infectious Disease Routine Consulting Provider: Elroy Judd Reason for Consult: R LE infection with possible infected hematoma EMERGENT Consult: No MD Notified: Yes Date Notified: 04/12/23 Time Notified: 16:31 Method of Notification: Text 04/12/23 17:28 Consult: Cardiology Routine Consulting Provider: Juanjose Tolbert Reason for Consult: surgical clearance-OR pm of 04/13 EMERGENT Consult: No MD Notified: Yes Date Notified: 04/12/23 Time Notified: 17:28 Method of Notification: Text 04/16/23 15:38 Consult: Plastic Surgery Routine Consulting Provider: Murray Bentley Reason for Consult: right knee wound EMERGENT Consult: No MD Notified: Yes Date Notified: 04/16/23 Time Notified: 15:39 Method of Notification: Verbal 04/16/23 15:51 Consult: Onc/Wound/public health physician Routine Comment: Reason for Consult:: wound care, wound vac changes q3 days Reason For Visit: RLE CELLULITIS, RECENT LARGE HEMATOMA, ABLA Diagnosis Discharge Diagnosis (1) Open wound of right knee with complication: Status: Acute Code(s): S81.001A - Unspecified open wound, right knee, initial encounter Qualifiers: Encounter type: subsequent encounter Qualified Code(s): S81.001D - Unspecified open wound, right knee, subsequent encounter Plan Right lower extremity cellulitis with concern for infected hematoma of the right knee Blood culture negative for 5 days. Surgical culture is also negative for more than 48 hours. Fungal culture pending. Patient was on vancomycin and ceftriaxone changed to Keflex started on 04/17/2023 for 5 days. Patient was seen and evaluated by ID. Patient was also on Bactrim Keflex prior to admission. -Evacuation of hematoma is completed on 04/13/2023 however wound closure was not possible due to the size and wound VAC placed Patient was taken to the OR on 04/16/2023 for attempted closure however unfortunately this was not able to be performed and she will need ongoing wound VAC 04/20: Dressing and wound VAC was changed. 04/21: Feels mild softness around her right femoral condyle anteriorly. Orthopedics surgeon Dr. Doty saw the patient. No signs of abscess formation. More likely bursitis and edema from trauma surgery. Patient completes antibiotic tomorrow 04/22/2023. [id number] was done yesterday on 04/20 and was declined that patient can walk about 150 feet with no contact-guard. Large right knee hematoma -Hematoma was evacuated on 04/13/2023 Xarelto was started low-dose 10 mg daily today evening. If patient tolerates we will increase to full dose 20 mg daily. Lovenox discontinued. Debility/fall/generalized weakness -PT/OT following, weightbearing per orthopedic surgery -Current plan is to transitional care unit once pre-CERT is obtained--> patient has been medically ready since 04/16/2023 -Case management/social work following Acute on chronic anemia -Patient with chronic anemia appearing to have his hemoglobin at baseline between 8 and 10 Patient is states usually her hemoglobin is around 8-9 gram percent.In the hospital she is around 7.2. Iron infusion ordered. Was transfused 2 packed units during last hospitalization. If hemoglobin drops less than 7 g will need PRBC transfusion. 04/19: Hemoglobin is still on lower side 7.2. IV iron 1 dose ordered. Continue low-dose Xarelto. 04/20: Started on oral iron. Patient had 2 dosages of IV iron and PRBC transfusion. CHRISTIAN on CKD stage II -CHRISTIAN has resolved -Baseline serum creatinine appears to be between 0.9 and 1.1 -Creatinine is overall relatively stable -Continue to monitor -Continue home Bumex and lisinopril 04/19: Creatinine 1.34. Creatinine is gradually increasing. Patient admitted with creatinine 1.45, decreased to 1.03 and then gradually going up to 1.34. Monitor kidney function daily. Paroxysmal atrial fibrillation -Continue home amiodarone -Xarelto on hold due to bleeding -Currently in normal sinus rhythm CAD/HTN/HPL -Status post quadruple bypass in 2017 -Continue home fenofibric acid -Restart home Bumex -Restart home lisinopril KASANDRA -Patient does not tolerate CPAP -Is untreated at baseline -Encouraged outpatient follow-up DM-2 -Hold oral regimen -Continue basal insulin 30 units nightly -174 fasting today however her blood sugars increase the day after surgery last time as well we will continue to monitor -Hemoglobin A1c on 04/13/2023 was 6.9 so it appears that she is very well controlled on her baseline home regimen however her anemia could complicate the interpretation of this making her hemoglobin A1c lower than actually has been -Continue prandial insulin scheduled -SSI -Cardiac/carb controlled diet -Accu-Chek as ordered DVT prophylaxis -We will start subcu Lovenox and if tolerates well transition to Eliquis for full anticoagulation at the time of discharge CODE STATUS Full code Patient is discharged on Keflex for 1 more day. Xarelto dose decreased to 10 mg daily as patient has right knee hematoma and also creatinine clearance less than 50 mill per minute and hemoglobin low 7 to 8 g%. If hemoglobin improves more than 8 g and creatinine clearance above more than 50 patient can go back to Xarelto 15 mg daily Discharge medication reconciliation done. Discharge follow-up instructions completed. Discharge process discussed with the patient and all questions were answered to patient's satisfaction. Total time spent, exact 35 minutes on discharge meds reconciliation, examination, coordination of care with nurses and ancillary staff, review of imaging and blood test and discussion with the patient on follow-up instructions. Medications at Discharge Home Medications atorvastatin 40 mg tablet 40 mg PO QHS Cholesterol 09/07/14 fenofibric acid (choline) 135 mg capsule,delayed release (Trilipix) 135 mg PO DAILY Cholesterol 09/07/14 levothyroxine 175 mcg tablet 200 mcg PO DAILY Thyroid 04/12/20 bumetanide 0.5 mg tablet 0.5 mg PO DAILY BP 02/17/21 insulin glargine U-300 conc 300 unit/mL (1.5 mL) subcutaneous pen (Toujeo SoloStar U-300 Insulin) 30 unit subcut QHS Diabetes 02/17/21 insulin lispro 100 unit/mL subcutaneous solution 25 unit subcut DINNER Diabetes 02/17/21 insulin lispro 100 unit/mL subcutaneous solution (Humalog U-100 Insulin) 12 unit subcut BREAKFAST Diabetes 02/17/21 acetaminophen 500 mg tablet 1,000 mg (2 x 500 mg) PO Q6H PRN PRN Pain Score 1-5 #0 tabs 05/14/21 insulin lispro 100 unit/mL subcutaneous pen 18 unit subcut LUNCH diabetes 05/30/21 rivaroxaban 15 mg tablet (Xarelto) 20 mg PO DAILY blood thinner 05/30/21 amiodarone 200 mg tablet 100 mg PO DAILY hrt 11/12/21 insulin lispro 100 unit/mL subcutaneous pen (Humalog KwikPen (U-100) Insulin) See Protocol subcut 4X/DAYCM dm #0 mL 04/09/23 oxycodone 5 mg tablet 5 mg PO Q4H PRN PRN Pain Score 4-10 3 days #12 tabs 04/09/23 sennosides 8.6 mg-docusate sodium 50 mg tablet (Stool Softener-Stimulant Laxative) 2 tab PO BID PRN PRN Constipation #0 tabs 04/09/23 lisinopril 10 mg tablet 10 mg PO DAILY bp 04/11/23 ofloxacin 0.3 % eye drops 1 drp ophthalmic (eye) Q6H eye 04/11/23 prednisolone acetate 1 % eye drops,suspension 1 drp ophthalmic (eye) BID eye 04/11/23 sodium chloride 5 % eye drops 1 drp ophthalmic (eye) BID eye 04/11/23 ascorbic acid (vitamin C) 500 mg tablet 500 mg PO BID 30 days #60 tabs 04/21/23 cephalexin 500 mg tablet 500 mg PO Q8H cellulitis 1 day #3 tabs 04/21/23 ferrous sulfate 325 mg (65 mg iron) tablet (FeroSul) 325 mg PO DAILY@1200 #30 tabs 04/21/23 rivaroxaban 10 mg tablet (Xarelto) 10 mg PO DINNER 30 days #30 tabs 04/21/23 Physical Exam Narrative Patient has right knee deformity after surgery. Dressing and wound VAC was changed today. Patient feels mild softness above wound VAC. Physical Examination: General: Alert, Oriented x3, Cooperative HEENT: Atraumatic, PERRLA, EOMI, Normocephalic Oral: Oral mucosa moist. No Gingival or Mucosal Lesions/ Ulcerations Neck: Thyroidectomy surgical scar supple, No JVD, Negative Carotid Bruits Lungs: Air entry diminished in bilateral lung bases. No crepitation/rhonchi Cardiovascular: Quadruple surgical scar. Regular rate, Regular Rhythm, Normal S1, Normal S2, No murmurs Abdomen: Bowel Sounds Present, Soft, Non Tender, Non-Distended : No renal angle tenderness. No suprapubic tenderness. Extremities: No edema, Capillary Refill Less than 3 Seconds Skin: Right knee surgical scar. Musculoskeletal: Softness proximal to the wound drain, cystic consistency. No inflammation. Most likely bursitis. New wound VAC. Right knee deformity, lost its usual contour. No Tenderness to Palpation of Joints or Extremities Neurological: Cranial nerves II-XII grossly intact, DTR 2+/4 and Symmetrical, Neuro grossly intact Psych/Mental Status: Flat affect. Weight / BMI Weight Weight: 307 lb 8.717 oz Body Mass Index (BMI) 46.5 ABG / Lab / Microbiology Data 04/20/23 05:38 04/20/23 05:38 Laboratory: Laboratory Results - last 24 hr 04/20/23 11:22: POC Glucose 192 H 04/20/23 16:38: POC Glucose 140 H 04/20/23 22:27: POC Glucose 91 Microbiology: Microbiology 04/13/23 16:00 Wound Drainage - Knee Gram Stain - Final 04/13/23 16:00 Wound Drainage - Knee Wound Culture - Final No growth aerobically. 04/13/23 16:00 Wound Drainage - Knee Anaerobic Culture - Final No growth in 5 days. 04/11/23 18:51 Blood Culture (Wb) - Anticubital Right Blood Culture - Final No growth in 5 days. 04/11/23 18:52 Blood Culture (Wb) - Left Hand Blood Culture - Final No growth in 5 days. D/C Instructions Discharge Diet: 1800 Calorie Control Diet and 2000 mg Sodium Diet Weight Bearing Status: Weight bearing as tolerated Call your doctor if you observe: Fever of 101 or Higher, Coldness, Increased Pain, Numbness or Tingling, Change in Color, Inability to urinate, Inability to have a bowel movement, Using more than 1 pad per hour, Shortness of breath, Dizziness, Fainting spells, Swelling in the ankles, Chest pain, Prolonged hiccupping, Increased palpitations (irregular heartbeat) and Calf discomfort When: IN 2 WEEKS Meaningful Use Info Meaningful Use Diagnoses (Choose all that apply): None applicable Discharge Plan Admission Admit Date/Time: 04/11/23 20:35 Attending Provider: Donny Feng Primary Care Provider: Maggi Chicas Consulting Providers: Tyrese Gallegos; Toshia Conroy; Elroy Judd; Juanjose Tolbert; Murray Bentley; Irene Julio Instructions Additional Instructions / Restrictions: Home PT and OT. Xarelto dose decreased to 10 mg daily with weekly CBC. Hold it if hemoglobin less than 7 g or platelet less than 50,000 or external/knee joint bleeding episode. She was admitted with right knee hematoma which is controlled. Discharge Orders/Prescriptions Prescriptions: New ferrous sulfate [FeroSul] 325 mg (65 mg iron) Tablet 325 mg PO DAILY@1200 Qty: 30 2RF ascorbic acid (vitamin C) 500 mg tablet 500 mg PO BID 30 Days Qty: 60 2RF Xarelto 10 mg Tablet 10 mg PO DINNER 30 Days Qty: 30 0RF Rx Instructions: Discontinue if platelet count drops less than 50,000 or hemoglobin less than 7.0 g% Continued atorvastatin 40 MG tablet 40 mg PO QHS Patient Comments: CHOLESTEROL LOWERING fenofibric acid (choline) [Trilipix] 135 MG capsule,delayed release(DR/EC) 135 mg PO DAILY Patient Comments: cholesterol levothyroxine 175 MCG tablet 200 mcg PO DAILY bumetanide 0.5 mg Tablet 0.5 mg PO DAILY insulin lispro [Humalog U-100 Insulin] 100 unit/mL Solution 12 unit SUBCUT BREAKFAST insulin lispro 100 unit/mL Solution 25 unit SUBCUT DINNER Toujeo SoloStar U-300 Insulin 300 unit/mL (1.5 mL) Insulin Pen 30 unit SUBCUT QHS acetaminophen 500 mg Tablet 1,000 mg PO Q6H PRN PRN (Reason: Pain Score 1-5) Qty: 0 0RF insulin lispro 100 unit/mL Insulin Pen 18 unit SUBCUT LUNCH amiodarone 200 mg tablet 100 mg PO DAILY Patient Comments: TAKE 1 TABLET DAILY oxycodone 5 mg Tablet 5 mg PO Q4H PRN PRN (Reason: Pain Score 4-10) 3 Days Qty: 12 0RF insulin lispro [Humalog KwikPen Insulin] 100 unit/mL Insulin Pen See Protocol subcut 4X/DAYCM Qty: 0 0RF Protocol: 3. Sliding Scale Insulin Med Dosing Condition: 150-189 mg/dl = 1 unit Condition: 190-229 mg/dl = 2 units Condition: 230-269 mg/dl = 3 units Condition: 270-309 mg/dl = 4 units Condition: 310-349 mg/dl = 5 units Condition: 350-399 mg/dl = 6 units Condition: 400-449 mg/dl = 7 units Condition: Greater than 449 call physician Protocol Text: - Use for Total Daily Dose of Insulin 37-55 units - Obsese, infected, or steroid patients MEDIUM DOSING ALGORITHIM sennosides-docusate sodium [Stool Softener-Stimulant Laxat] 8.6-50 mg Tablet 2 tab PO BID PRN PRN (Reason: Constipation) Qty: 0 0RF lisinopril 10 mg tablet 10 mg PO DAILY Patient Comments: TAKE 1 TABLET DAILY prednisolone acetate 1 % drops,suspension 1 drp ophthalmic (eye) BID Patient Comments: Instill 1 drop in right eye(s) twice daily sodium chloride 5 % drops 1 drp ophthalmic (eye) BID Patient Comments: instill 1 (ONE) DROP IN THE RIGHT EYE TWICE DAILY ofloxacin 0.3 % drops 1 drp ophthalmic (eye) Q6H Patient Comments: APPLY 1 (ONE) DROP IN OPERATIVE EYE FOUR TIMES DAILY, START AFTER SURGERY cephalexin 500 mg tablet 500 mg PO Q8H 1 Days Qty: 3 0RF Held Xarelto 15 mg tablet 20 mg PO DAILY Hold Instructions: Hold it until hemoglobin improves more than 8 g and creatinine clearance more than 50 mill per minute. Discontinued doxycycline monohydrate 100 mg capsule 100 mg PO DAILY Qty: 30 0RF sulfamethoxazole-trimethoprim [Bactrim DS] 800-160 mg tablet 1 tab PO BID 7 Days Qty: 14 0RF Referrals / Follow Up: Murray Bentley MD [Med Staff - Active Staff] - 04/26/23 3:15 pm ([facility] Maggi Chicas DO [Primary Care Provider] - Disposition Disposition (needs filled in before D/C Order can be placed): Home Health Service Charges/Coding Visit Charges Inpatient E&M: 54664 Disch Hosp >30min
[2023-04-21 11:50] LABS: Bedside Glucose 163 mg/dL (74-106)
[2023-04-21] MEDS: Ferrous Sulfate 325 MG Tablet PO (12:50)
[2023-04-21] MEDS: Insulin Lispro 100 UNIT/ML INSULN.PEN SC (12:51)
[2023-04-21] MEDS: Insulin Lispro 100 UNIT/ML INSULN.PEN 18 UNIT SC (12:51)
--- NOTE | 2023-04-21 13:37 | PHA.DC.MR.R ---
Pharmacy [place] Med Reconciliation Pharmacy Service has performed discharge medication reconciliation for this patient. 1. Xarelto 10 mg PO QD 2. Ascorbic acid 500 mg PO BID 3. Cephalexin 500 mg PO Q8H X 1 day 4. Ferrous sulfate 325 mg PO QD The patient's discharge medication list was reviewed for discrepancies and discrepancies were resolved. The patient was counselled on the above medications by pharmacy technician per diem Bill. Medications at Discharge Home Medications atorvastatin 40 mg tablet 40 mg PO QHS Cholesterol 09/07/14 fenofibric acid (choline) 135 mg capsule,delayed release (Trilipix) 135 mg PO DAILY Cholesterol 09/07/14 levothyroxine 175 mcg tablet 200 mcg PO DAILY Thyroid 04/12/20 bumetanide 0.5 mg tablet 0.5 mg PO DAILY BP 02/17/21 insulin glargine U-300 conc 300 unit/mL (1.5 mL) subcutaneous pen (Toujeo SoloStar U-300 Insulin) 30 unit subcut QHS Diabetes 02/17/21 insulin lispro 100 unit/mL subcutaneous solution 25 unit subcut DINNER Diabetes 02/17/21 insulin lispro 100 unit/mL subcutaneous solution (Humalog U-100 Insulin) 12 unit subcut BREAKFAST Diabetes 02/17/21 acetaminophen 500 mg tablet 1,000 mg (2 x 500 mg) PO Q6H PRN PRN Pain Score 1-5 #0 tabs 05/14/21 insulin lispro 100 unit/mL subcutaneous pen 18 unit subcut LUNCH diabetes 05/30/21 rivaroxaban 15 mg tablet (Xarelto) 20 mg PO DAILY blood thinner 05/30/21 amiodarone 200 mg tablet 100 mg PO DAILY hrt 11/12/21 insulin lispro 100 unit/mL subcutaneous pen (Humalog KwikPen (U-100) Insulin) See Protocol subcut 4X/DAYCM dm #0 mL 04/09/23 oxycodone 5 mg tablet 5 mg PO Q4H PRN PRN Pain Score 4-10 3 days #12 tabs 04/09/23 sennosides 8.6 mg-docusate sodium 50 mg tablet (Stool Softener-Stimulant Laxative) 2 tab PO BID PRN PRN Constipation #0 tabs 04/09/23 lisinopril 10 mg tablet 10 mg PO DAILY bp 04/11/23 ofloxacin 0.3 % eye drops 1 drp ophthalmic (eye) Q6H eye 04/11/23 prednisolone acetate 1 % eye drops,suspension 1 drp ophthalmic (eye) BID eye 04/11/23 sodium chloride 5 % eye drops 1 drp ophthalmic (eye) BID eye 04/11/23 ascorbic acid (vitamin C) 500 mg tablet 500 mg PO BID 30 days #60 tabs 04/21/23 cephalexin 500 mg tablet 500 mg PO Q8H cellulitis 1 day #3 tabs 04/21/23 ferrous sulfate 325 mg (65 mg iron) tablet (FeroSul) 325 mg PO DAILY@1200 #30 tabs 04/21/23 rivaroxaban 10 mg tablet (Xarelto) 10 mg PO DINNER 30 days #30 tabs 04/21/23
[2023-04-21 13:51] VITALS: BP 133/59; PULSE 60; RESP 18; TEMP 36.6; O2SAT 100
== END 2023-04-21 16:26 | disposition home health service (06) | DRG 580 ==
LOC: ED 20:41 → MS3 20:55
PROVIDERS: Anesthesiology; Hospitalist; Internal Medicine; Orthopaedic Surgery; Admitting Provider Family Medicine; Emergency Provider Emergency Medicine; Visit Provider Internal Medicine
PROC: 0JCN0ZZ Extirpation of Matter from Right Lower Leg Subcutaneous Tissue and Fascia, Open Approach (ICD-10-PCS; principal; 2023-04-13 14:45)
DX: L03.115 Cellulitis of right lower limb (principal); N17.9 Acute kidney failure, unspecified; D62 Acute posthemorrhagic anemia; Z68.42 Body mass index [BMI] 45.0-49.9, adult; I27.20 Pulmonary hypertension, unspecified; D63.8 Anemia in other chronic diseases classified elsewhere; E11.22 Type 2 diabetes mellitus with diabetic chronic kidney disease; I48.0 Paroxysmal atrial fibrillation; Z79.4 Long term (current) use of insulin; E66.01 Morbid (severe) obesity due to excess calories; D72.810 Lymphocytopenia; E03.9 Hypothyroidism, unspecified; E78.5 Hyperlipidemia, unspecified; I10 Essential (primary) hypertension; G47.33 Obstructive sleep apnea (adult) (pediatric); R11.2 Nausea with vomiting, unspecified; I25.10 Atherosclerotic heart disease of native coronary artery without angina pectoris; I12.9 Hypertensive chronic kidney disease with stage 1 through stage 4 chronic kidney disease, or unspecified chronic kidney disease; N18.2 Chronic kidney disease, stage 2 (mild); I34.0 Nonrheumatic mitral (valve) insufficiency; Z79.01 Long term (current) use of anticoagulants; Z87.891 Personal history of nicotine dependence; R53.81 Other malaise; Z79.890 Hormone replacement therapy; S81.001D Unspecified open wound, right knee, subsequent encounter
CPT/HCPCS: 36415; 71045; 73590; 80048; 80053; 80202; 82962; 83036; 83605; 83690; 83735; 84100; 84134; 84443; 85018; 85025; 85652; 85730; 86140; 87040; 87070; 87075; 87102; 87176; 87205; 87206; 93005; 93971; 94668; 97110; 97162; 97166; 97530; 97535; 97802; 97803; 99252; 99285; J7030; J7040; J7050; J7120; A4216; G0463; J2405; J2916

== ENCOUNTER 2023-04-26 15:11 | Outpatient (RCR) | payer MEDICARE, SELFPAY ==
[2023-04-26 15:22] VITALS: BP 194/71; PULSE 61; RESP 18; BMI 46.6
--- NOTE | 2023-04-26 18:08 | PN.PCM_ITS ---
History of Present Illness Date of Service: 04/26/23 Chief Complaint: Open surgical hematoma wound right knee History of Wound: The patient is a 72 y/o woman with a history of diabetes, was admitted to the hospital with increasing redness and swelling and pain in her right knee after a mechanical fall. She is on anticoagulation and with the fall, she sustained a hematoma. When she initially came to the ED, she was given a script for Keflex and Bactrim. When she failed outpatient therapy with po antibiotics, she was admitted the next time she came to the ED. She was started on Vancomycin and Rocephin. Her WBC was 5.6. Hgb was 8.6. Her HgbA1c was 6.9 on 04/13/23. Dr. Gallegos from Orthopedics was consulted for this hematoma right knee. He proceeded with an I&D and evacuation of the hematoma. Wound care was started and a few days later he took her back to surgery to attempt closure of the wound. Her skin was thin and not very strong. He had difficulty with closure because the skin was tearing as there was too much tension from the swelling and from her obesity. So a VAC was applied and he consulted me to evaluate this patient for chronic wound care and for surgical options for wound closure. Today she denies fever. Her appetite is ok. Progress of Wound: Stable with some granulation tissue present. Has moderate swelling. No clinical evidence of recurrent hematoma or infection. Objective Data Objective Data Vital Signs: Vital Signs Pulse Resp BP O2 Del Method 61 18 194/71 H Room Air 04/26/23 15:22 04/26/23 15:22 04/26/23 15:22 04/26/23 15:22 Oxygen Delivery Method Room Air Weight: 307 lb Body Mass Index (BMI) 46.6 Prealbumin was 12.5 on 04/20/23. Encourage nutritional supplementation with protein to help the healing process. Lab / Micro Data Attestation: I reviewed the patient's lab results. Lab results narrative: HgbA1c is 6.9 from 04/13/23. For elective surgeries such as a skin graft in the future, the HgbA1c needs to be less than 8. Charges/Coding Procedures Integumentary 111xxx-113xx: 98902 Zita subq tissue 20 sq cm/< (ICD-10 - S81.001A, S80.01xA, E11.9, D63.8, Z79.01, E66.9, M79.89) Add On Codes: 96530 Zita subq tissue add-on (ICD-10 - S81.001A, S80.01xA, E11.9, D63.8, Z79.01, E66.9, M79.89) Debridement Note Debridement Note Wound debrided: #1 Right knee cluster. Laterality: Right Wound Grade/Stage: 2. Type of Debridement: Excisional debridement Anesthesia Used: 4% Lidocaine Solution Depth: Down to and including healthy tissue and in the subcutaneous layer Percentage of wound debrided: 100 Instrument Used: 5mm curette Tissue Removed: subcutaneous tissue Severity: Fat Layer Exposed Amount of bleeding with debridement: Mild Bleeding Controlled with: Pressure and Compression and gauze Patient tolerated procedure: Patient tolerated procedure well Post-Debridement Measurements and Additional Note: Post-Debridement Measurements/Treatment - Nurse 1 - General Ulcer Assessment Start: 04/26/23 15:18 Freq: Status: Active Protocol: USHA Activity Type Activity Date Activity User E-sign Co-sign Detail Recorded Client Recorded Date Recorded By Document 04/26/23 15:22 [facility] [id number] 04/26/23 15:35 [facility] 04/26/23 15:22 - Today's Visit Information Type of service Initial Visit Arrival Mode Ambulatory, Walker Transfer Assistance None Accompanied by DAUGHTER Patient Identification Verified (Name & Yes ) Patient Requires Transmission-Based No Precautions Height and Weight Height 5 ft 8 in Weight 307 lb Weight in Pounds 307.0 lbs Weight Measurement Method Estimated by Patient Body Mass Index (BMI) 46.6 BMI Classification Obese BSA - Gaye 2.45 Vital Signs Temperature Source Temporal Pulse Rate (60-100) 61 Pulse Location Monitor Respiratory Rate (12-18) 18 Respiratory rate source Observation Oxygen Delivery Method Room Air Blood Pressure (90/60-120/80) 194/71 H Blood Pressure Mean (mm Hg) 112 Source Monitor Position Sitting Blood Pressure Location Left Arm History Since Last Visit- (Skip if this is Patient's initial visit) Left Footwear Regular Shoe Right Footwear Regular Shoe Pain Scale: 0-10 Numeric Is Patient Pain Free? Yes Communication Assessment Preferred language [place] Water Supervisor Required No Able to Read Yes Able to Write Yes Communication Tools None Right Hearing Abillity Normal Left Hearing Abillity Normal Visual Assistive Devices None Teaching Assessment Preferences Verbal,Written, Audio/Visual, Demonstration Barriers to Learning None Readiness To Learn Excellent Willingness to Engage in Self Management High Activies Readiness to Engage in Self Management High Activities Anxiety Level Calm Cooperation Cooperative Perception Coherent Interest in Health Problem Asks Questions Education Importance Acknowledges Need Does Patient Smoke tobacco or other No substances Smoking Status Never smoker Is Patient Diabetic Yes Functional Assessment Recent Decline in Ability to Perform Ambulation, Transferring 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/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 Cultural/Congregational Needs that may affect No Treatment Plan Teaching: Wound Center *Welcome to the Wound Center -Person Taught Patient,Family -Teaching Method Discussion -Response to teaching Verbalize understanding Welcome to the Wound Care Center [place] WC - Nurse 1 - General Ulcer Measurement Start: 04/26/23 15:18 Freq: Status: Active Protocol: Activity Type Activity Date Activity User E-sign Co-sign Detail Recorded Client Recorded Date Recorded By Document 04/26/23 15:22 [facility] [id number] 04/26/23 15:35 [facility] 04/26/23 15:22 Wound Center Nurse 1 #1- R LOWER KNEE CLUSTER (POST OP) -Combined with other wound No -Current Size (cm) - Length 7 -Current Size (cm) - Width 5.9 -Current Size (cm) - Depth 1 -Total Square Cm 41.3 -Date of Last Picture (Recall this 04/26/23 field) -Photo Taken Yes -Epithelialization None Present -Tunneling No -Undermining/Tunneling No -Circular Undermining No -Exudate Amt Large -Exudate Type Serosanguineous -Wound Margin Distinct, Outline Attached -Granulation Amt Large (67-100%) -Granulation Quality Red -Slough/Fibrin Yes -Necrosis Amt Small (1-33%) -Necrotic Tissue Type Adherent Slough -Texture (Miroslava-wound Skin Appearance) Assessed, Localized Edema ,Scarring -Moisture (Miroslava-wound Skin Appearance) Assessed -Color (Miroslava-wound Skin Appearance) Assessed, Erythema -Temperature (Miroslava-wound Skin No Abnormality Appearance) (Pt Warm) -Tenderness on Palpation (Miroslava-wound Yes Skin Appearance) -Ulcer Cleansing Soap and Water -Foul Odor after Cleansing No -Anesthetic Used 4% Lidocaine Solution Lower Limb Edema Present Yes Right Calf (cm) 55.1 Right Ankle (cm) 27.9 WC - Nurse 2 - General Ulcer CM Notes Start: 04/26/23 15:18 Freq: Status: Active Protocol: Activity Type Activity Date Activity User E-sign Co-sign Detail Recorded Client Recorded Date Recorded By Document 04/26/23 15:53 [id number] 04/26/23 15:56 04/26/23 15:53 Wound Center Nurse 2 #1- R LOWER KNEE CLUSTER (POST OP) -Time 15:54 -Correct Patient Yes -Correct Side, Site, Position Yes -Correct Procedure Yes -Procedure Performed Yes -Type of Procedure Debridement -Clinical Debridement Subcutaneous -Tissue Removed Subcutaneous -Post Debridement (cm) - Length 6.0 -Post Debridement (cm) - Width 5.5 -Post Debridement (cm) - Depth 1.3 -Total Square (Post) (cm) 33.00 -Area of Debridement (cm) - Length 6.0 -Area of Debridement (cm) - Width 5.5 -Total Square (Area) (cm) 33.00 -Tunneling No -Undermining/Tunneling No -Circular Undermining No -Wound/Ulcer Outcome Not Healed -Ulcer Cleansing Rinsed/ Irrigated with Saline -Foul Odor after Cleansing No -Bioengineered Tissue No -Bleeding Controlled with Pressure -Treatment Response Procedure Tolerated Well -Offloading No -Debridement - Subq, 1st 20sq cm Yes -Debridement, SubQ, ea addt'l 20sq cm 1 or part thereof Pain Scale: 0-10 Numeric Is Patient Pain Free? Yes - Nurse 3 - General Ulcer D/C NN Start: 04/26/23 15:18 Freq: Status: Active Protocol: Activity Type Activity Date Activity User E-sign Co-sign Detail Recorded Client Recorded Date Recorded By Document 04/26/23 16:03 [id number] 04/26/23 16:21 DL 04/26/23 16:03 Wound Care Center Nurse 3 #1- R LOWER KNEE CLUSTER (POST OP) -Ulcer Cleansing Rinsed/ Irrigated with Saline -Foul Odor after Cleansing No -Negative Pressure Wound Therapy Continue -Setting (mmHg) 150 -Negative Pressure is Continuous -Primary Dressing Applied Aquacel AG 4x4 -NPWT Application Charge NPWT & Debridement (nc ) -Aquacel AG 4x4 1 Right -Compression Wrap Mc Wrap Treatment Response Procedure Tolerated Well Pain Scale: 0-10 Numeric Is Patient Pain Free? Yes WC - Visit Discharge Discharge Condition Stable Ambulatory Status Ambulatory Transportation Private Auto Facility Type Home Health Orders Sent Yes Assessment/Plan Assessment/Plan (1) Open wound of right knee with complication: CODE(S): S81.001A - Unspecified open wound, right knee, initial encounter QUALIFIERS: Encounter type: subsequent encounter Qualified Code(s): S81.001D - Unspecified open wound, right knee, subsequent encounter (2) Hematoma of right knee region: CODE(S): S80.01XA - Contusion of right knee, initial encounter (3) DM type 2, goal HbA1c < 7%: CODE(S): E11.9 - Type 2 diabetes mellitus without complications PLAN: HgbA1c is 6.9 on 04/13/23. 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 Just medial to the hematoma wound is another abrasion wound into the subcutaneous tissue that developed when the hematoma was attempted to be closed. Continue Silver dressing to that wound that can be changed whenever the VAC is changed. Operative cultures were negative. She was treated with IV antibiotics initially and was changed to Keflex at discharge and has finished them. Prealbumin was 12.5 on 04/20/23. Continue nutritional supplementation with protein to help the healing process. Patient is obese and has moderate swelling that can be problematic as it will slow down healing. Applied a 4 inch mc from the toes to the proximal leg at the edge of where the swelling starts. Then a 6 inch mc was applied to go above the knee, about mid thigh where the swelling ends. Hgb was 7.1 at discharge. She was discharged on Iron supplementation. She is scheduled to have a repeat Hgb later this week. If there is a plateau during the healing process which is likely secondary to the swelling at this time. Can always proceed with delayed closure with skin grafting. Before surgery, may try an advanced skin substitute graft.
== END 2023-04-26 23:59 | disposition home or self-care (01) ==
LOC: WC 15:11
PROVIDERS: Referring Provider Surgery; Visit Provider Surgery
DX: S81.001S Unspecified open wound, right knee, sequela (principal); Z68.42 Body mass index [BMI] 45.0-49.9, adult; E11.9 Type 2 diabetes mellitus without complications; S80.01XS Contusion of right knee, sequela; D63.8 Anemia in other chronic diseases classified elsewhere; Z79.01 Long term (current) use of anticoagulants; E66.9 Obesity, unspecified; M79.89 Other specified soft tissue disorders
CPT/HCPCS: 11042; 11045; 99213; G0463

== ENCOUNTER 2023-04-28 12:38 | Outpatient (RCR) | payer MEDICARE, SELFPAY ==
[2023-04-28 13:32] LABS: Hematocrit 29.7 % (37-47); Mean Corp Hgb Conc 30.3 g/dL (32-36); Mean Corpuscular Hgb 28.8 pg (27.0-32.0); Mean Corpuscular Volume 94.9 fL (81-99); Mean Platelet Vol. 11.1 fl (6.2-12.0); Platelet Count 234 K/mm3 (150-450); RBC Distribution Width CV 16.6 % (11.6-14.6); RBC Distribution Width SD 57.1 fl (35.1-43.9); Red Blood Count 3.13 M/mm3 (4.2-5.4); White Blood Count 3.7 K/mm3 (4.4-11.0)
[2023-04-28 13:40] LABS: Anion Gap 4 (5-15); BUN 22 mg/dL (7-18); BUN/Creat Ratio 16.8 RATIO (10-20); Calcium,Total 9.1 mg/dL (8.5-10.1); Chloride 109 mmol/L (98-107); Creatinine, Serum 1.31 mg/dL (0.55-1.02); EST Glomerular Filtration Rate 42 mL/min (>60); Est Glom Filt Rate - Afr Amer 51 mL/min (>60); Glucose 170 mg/dL (74-106); Potassium 3.7 mmol/L (3.5-5.1); Sodium Level 139 mmol/L (136-145)
== END 2023-04-28 18:00 | disposition home or self-care (01) ==
LOC: HHLAB 12:38
PROVIDERS: Referring Provider Nurse Practitioner Family; Visit Provider Nurse Practitioner Family
DX: S81.001A Unspecified open wound, right knee, initial encounter (principal); S80.01XA Contusion of right knee, initial encounter; L03.115 Cellulitis of right lower limb; N28.9 Disorder of kidney and ureter, unspecified
CPT/HCPCS: 80048; 85027

== ENCOUNTER → 2023-05-05 11:04 | Outpatient (REF) | payer MEDICARE, SELFPAY ==
[2023-05-05 11:34] LABS: Hematocrit 28.4 % (37-47); Hemoglobin 8.4 g/dL (12.0-15.0); Mean Corp Hgb Conc 29.6 g/dL (32-36); Mean Corpuscular Volume 94.7 fL (81-99); Platelet Count 209 K/mm3 (150-450); RBC Distribution Width SD 56.1 fl (35.1-43.9); White Blood Count 4.2 K/mm3 (4.4-11.0)
== END ==
LOC: LABSPEC 11:04
DX: S81.001A Unspecified open wound, right knee, initial encounter (principal); S80.01XA Contusion of right knee, initial encounter
CPT/HCPCS: 85027

== ENCOUNTER → 2023-05-13 | Outpatient (CLI) | payer MEDICARE, SELFPAY ==
[2023-05-13 10:52] LABS: Hematocrit 28.2 % (37-47); Hemoglobin 8.5 g/dL (12.0-15.0); Mean Corp Hgb Conc 30.1 g/dL (32-36); Mean Corpuscular Hgb 28.8 pg (27.0-32.0); Mean Corpuscular Volume 95.6 fL (81-99); Platelet Count 224 K/mm3 (150-450); RBC Distribution Width CV 15.7 % (11.6-14.6); RBC Distribution Width SD 55.7 fl (35.1-43.9); Red Blood Count 2.95 M/mm3 (4.2-5.4); White Blood Count 3.9 K/mm3 (4.4-11.0)
== END | disposition home or self-care (01) ==
LOC: LAB 10:07
DX: T14.8XXA Other injury of unspecified body region, initial encounter (principal); S80.01XA Contusion of right knee, initial encounter
CPT/HCPCS: 36415; 85027

== ENCOUNTER 2023-05-20 15:24 | Inpatient (IN) | payer MEDICARE, SELFPAY ==
[2023-05-20] VITALS (40 sets, daily range): BP systolic 133–183; BP diastolic 36–64; PULSE 48–63; RESP 6–18; TEMP 36.3–36.6; O2SAT 95–100; BMI 42.8; BMI 42.3
--- NOTE | 2023-05-20 16:02 | EX.ED.DYSGE1 ---
HPI History of Present Illness Chief Complaint: Chest Pain Informant: patient and family Narrative Narrative: Patient presents with slow heart rate and malaise. Patient states that she has noticed her heart rates been in the upper 40s to 50s for couple days. This is not typical for her. During this time she is felt that her energy level is very low. No fevers or chills. She states she might just be a little short of breath but that is not a big issue. She has had some chest aching that comes and goes but nothing specifically makes it come and go. Her symptoms of malaise do not change with the chest pain. Her heart rate does not seem to change with the chest pain. She is not having the pain now. Her only medication changes recently wore an increase in lisinopril from 10 to 40 mg a few weeks ago. She has a long history of A-fib and has had 2 ablations. She had four-vessel bypass in 2013. She has not had a stress test or heart cath or evaluation of the heart in over 2 years. She states she has been doing pretty well. She is on Xarelto routinely. She has been taking all of her medicines until this morning. She is on amiodarone but no beta-blockers or calcium channel blockers. On review of systems I also find that she does have some mild urinary symptoms. But no fevers chills nausea or vomiting. She has a wound on her right leg that was from a hematoma that was evacuated a couple months ago. This is slowly healing and improving. She had a wound VAC removed a week or so ago. She states it is slow to heal but is doing better progressively. This is not an issue for her today. [facility] Medical History Anemia Anemia of chronic disease Anticoagulant long-term use Anxiety and depression Arthritis Atrial fibrillation CAD (coronary artery disease) CPAP (continuous positive airway pressure) dependence Diabetes mellitus DM type 2, goal HbA1c < 7% DVT (deep venous thrombosis) Failure of outpatient treatment Hematoma of right knee region History of stress incontinence Hx of necrotizing fasciitis Hypertension Hypothyroidism Insulin dependent diabetes mellitus Leg swelling Open wound of right knee with complication PAF (paroxysmal atrial fibrillation) Restless legs Stage 3b chronic kidney disease (CKD) Traumatic hematoma of right knee Wears dentures Home Medications atorvastatin 40 mg tablet 40 mg PO QHS Cholesterol 09/07/14 [History Last Taken 04/06/23] fenofibric acid (choline) 135 mg capsule,delayed release (Trilipix) 135 mg PO DAILY Cholesterol 09/07/14 [History Last Taken 04/06/23] levothyroxine 175 mcg tablet 200 mcg PO DAILY Thyroid 04/12/20 [History Last Taken 04/06/23] bumetanide 0.5 mg tablet 1 mg PO DAILY BP 02/17/21 [History Last Taken 04/06/23] insulin glargine U-300 conc 300 unit/mL (1.5 mL) subcutaneous pen (Toujeo SoloStar U-300 Insulin) 35 unit subcut QHS Diabetes 02/17/21 [History Last Taken 04/06/23] insulin lispro 100 unit/mL subcutaneous solution (Humalog U-100 Insulin) 18 unit subcut BREAKFAST Diabetes 02/17/21 [History Last Taken 04/06/23] acetaminophen 500 mg tablet 1,000 mg (2 x 500 mg) PO Q6H PRN PRN Pain Score 1-5 #0 tabs 05/14/21 [Rx Last Taken 04/06/23] insulin lispro 100 unit/mL subcutaneous pen 25 unit subcut LUNCH diabetes 05/30/21 [History Last Taken 04/06/23] amiodarone 200 mg tablet 100 mg PO DAILY hrt 11/12/21 [History Last Taken 04/06/23] lisinopril 10 mg tablet 40 mg PO DAILY bp 04/11/23 [History Last Taken Unknown] ofloxacin 0.3 % eye drops 1 drp ophthalmic (eye) Q6H eye 04/11/23 [History Last Taken Unknown] prednisolone acetate 1 % eye drops,suspension 1 drp ophthalmic (eye) BID eye 04/11/23 [History Last Taken Unknown] sodium chloride 5 % eye drops 1 drp ophthalmic (eye) BID eye 04/11/23 [History Last Taken Unknown] ascorbic acid (vitamin C) 500 mg tablet 500 mg PO BID 30 days #60 tabs 04/21/23 [Rx Last Taken Unknown] ferrous sulfate 325 mg (65 mg iron) tablet (FeroSul) 325 mg PO DAILY@1200 #30 tabs 04/21/23 [Rx Last Taken Unknown] rivaroxaban 10 mg tablet (Xarelto) 10 mg PO DINNER 30 days #30 tabs 04/21/23 [Rx Last Taken Unknown] aspirin 81 mg tablet,delayed release (Adult Aspirin Regimen) 81 mg PO DAILY 05/20/23 [History Last Taken Unknown] Allergy/AdvReac Type Severity Reaction Status Date / Time hydralazine HCl Allergy Other Verified 05/20/23 15:28 [From Apresoline] ondansetron [From Zofran] AdvReac Nausea Verified 05/20/23 15:28 Family History Mother Diabetes Heart disease Hypertension Father Diabetes Heart disease Hypertension Surgical History History of cardiac catheterization History of cardiac radiofrequency ablation History of hip replacement History of quadruple bypass History of total left hip replacement Hx of CABG Hx of cholecystectomy Hx of colonoscopy Hx of tubal ligation Social History household members: none housing: house number of children: 3 Smoking Status: Former smoker alcohol intake: never substance use type: does not use ROS ROS ED ROS Narrative A complete review of systems was performed and is negative except as documented in the history of present illness. Some specific details below. Constitutional: No recent fevers or chills. She does have malaise. This all started with her slower heart rate. EYE: No discharge, visual complaints, or pain. ENT: No difficulty swallowing. No reflux. CV: See history of present illness. Respiratory: See history of present illness. She states she has mild dyspnea off-and-on but it is very minimal. She is not having it now. GI: No abdominal pain. No nausea vomiting diarrhea. No blood in stool. : She states she has mild soreness in her kidneys and some slight increased urination. No change in odor. Musculoskeletal: No recent trauma. See history of present illness regarding right lower extremity. Skin: No rash. Nondiaphoretic. Neuro: No focal weakness or numbness. Endocrine: No polyuria or polydipsia. EXAM Physical Exam Narrative Exam Narrative: CONSTITUTIONAL: Patient is nontoxic in appearance. The patient looks comfortable. Work of breathing looks normal. HEENT: No notable trauma. Mucous membranes moist. EYES: No conjunctival injection. No pallor noted. NECK:No JVD. No stridor. CARDIOVASCULAR: Rhythm appears to be regular but her rate is slow at about 64. She will occasionally drop into the upper 50s. I saw maybe 1 or 2 PVCs while I was in the room on the monitor. I do not hear a murmur. RESPIRATORY: No respiratory distress. Breathing is unlabored. No wheezes. No rhonchi. No rales at the bases. No pain with a deep breath. GASTROINTESTINAL: Her abdomen is obese but not distended. Bowel sounds are normal. No tenderness. GENITOURINARY: No tenderness over the bladder. No notable CVA tenderness. MUSCULOSKELETAL: Wound center wrappings on right lower extremity. She states this been doing well and not causing her problems and it was not fully unwrapped. She does have signs of chronic venous stasis changes. She has some edema but evidently this is normal for her. NEUROLOGICAL: Patient is alert and appropriate. No focal deficit noted. SKIN: No noted rashes. No diaphoresis. No pallor. PSYCHIATRIC: Patient is calm. Mood is appropriate. Const Vital Signs: 05/20/23 15:28 05/20/23 15:52 05/20/23 15:52 Temperature 97.4 F L Temperature Source Temporal Pulse Rate 62 Respiratory Rate 18 Respiratory Effort Short of Breath Blood Pressure 183/55 H Blood Pressure Mean 97 Pulse Ox 100 Oxygen Delivery Method Room Air Room Air 05/20/23 16:25 05/20/23 17:25 05/20/23 16:06 Temperature Temperature Source Pulse Rate 53 L 52 L 51 L Respiratory Rate 18 11 L Respiratory Effort Blood Pressure 155/45 H Blood Pressure Mean 81 Pulse Ox 100 Oxygen Delivery Method Room Air 05/20/23 16:10 05/20/23 16:15 05/20/23 16:20 Temperature Temperature Source Pulse Rate 51 L 52 L 54 L Respiratory Rate 16 12 9 L Respiratory Effort Blood Pressure 161/45 H Blood Pressure Mean 76 Pulse Ox 99 Oxygen Delivery Method Room Air 05/20/23 16:38 05/20/23 16:40 05/20/23 16:45 Temperature Temperature Source Pulse Rate 63 58 L 56 L Respiratory Rate 11 L 9 L 11 L Respiratory Effort Blood Pressure 157/47 H Blood Pressure Mean 77 Pulse Ox 98 Oxygen Delivery Method Room Air 05/20/23 16:50 05/20/23 17:00 05/20/23 17:10 Temperature Temperature Source Pulse Rate 55 L 53 L 50 L Respiratory Rate 10 L 12 16 Respiratory Effort Blood Pressure 146/44 H Blood Pressure Mean 73 Pulse Ox 96 Oxygen Delivery Method Room Air 05/20/23 17:15 05/20/23 17:20 05/20/23 17:30 Temperature Temperature Source Pulse Rate 55 L 52 L 53 L Respiratory Rate 17 13 8 L Respiratory Effort Blood Pressure 145/38 H 155/45 H Blood Pressure Mean 65 75 Pulse Ox 95 99 Oxygen Delivery Method Room Air Room Air 05/20/23 17:40 05/20/23 17:45 05/20/23 17:50 Temperature Temperature Source Pulse Rate 52 L 51 L 48 L Respiratory Rate 10 L 8 L 9 L Respiratory Effort Blood Pressure 151/38 H Blood Pressure Mean 69 Pulse Ox 96 Oxygen Delivery Method Room Air 05/20/23 18:00 05/20/23 18:10 05/20/23 18:15 Temperature Temperature Source Pulse Rate 55 L 57 L 53 L Respiratory Rate 15 12 9 L Respiratory Effort Blood Pressure 133/41 H 150/42 H Blood Pressure Mean 67 71 Pulse Ox 95 98 Oxygen Delivery Method Room Air Room Air 05/20/23 18:20 05/20/23 18:30 05/20/23 18:40 Temperature Temperature Source Pulse Rate 52 L 51 L 54 L Respiratory Rate 12 7 L 6 L Respiratory Effort Blood Pressure 147/39 H Blood Pressure Mean 67 Pulse Ox Oxygen Delivery Method 05/20/23 18:45 05/20/23 18:50 05/20/23 19:00 Temperature Temperature Source Pulse Rate 51 L 51 L 49 L Respiratory Rate 9 L 10 L 12 Respiratory Effort Blood Pressure 156/43 H 148/37 H Blood Pressure Mean 75 68 Pulse Ox 98 99 Oxygen Delivery Method 05/20/23 19:10 05/20/23 19:15 05/20/23 19:20 Temperature Temperature Source Pulse Rate 55 L 53 L 52 L Respiratory Rate 13 9 L 13 Respiratory Effort Blood Pressure 152/49 H Blood Pressure Mean 77 Pulse Ox 96 Oxygen Delivery Method 05/20/23 19:38 05/20/23 19:40 05/20/23 19:45 Temperature Temperature Source Pulse Rate 54 L 54 L 50 L Respiratory Rate 11 L 10 L 10 L Respiratory Effort Blood Pressure 150/64 H Blood Pressure Mean 86 Pulse Ox 97 Oxygen Delivery Method Room Air 05/20/23 19:50 Temperature Temperature Source Pulse Rate 51 L Respiratory Rate 9 L Respiratory Effort Blood Pressure Blood Pressure Mean Pulse Ox Oxygen Delivery Method MDM MDM MDM Narrative Medical decision making narrative: Patient CBC shows some mild anemia. White count and hemoglobin are normal. Patient's electrolytes do show mild elevation of BUN/creatinine. Just some mild dehydration. Mild elevation of glucose also at 161. No Patient's trip Simone is negative at 12. Patient's urine is only with leukocyte esterase 3+ bacteria and 10-25 white cells. Although this is not a strong indication of UTI it is supportive of 1. She also has some mild frequency and a little bit of flank soreness. But no CVA tenderness. I will this is a UTI. I am not sure if her overall weakness and malaise is due to urinary tract infection. It could also be due to heart disease. She has a history of bypass, heart disease and she has been having chest pain with bradycardia. But I think she does need to be admitted. I discussed the case with the hospitalist. Lab Data Attestation: I reviewed the patient's lab results. Labs: Laboratory Results - last 24 hr 05/20/23 05/20/23 05/20/23 15:59 16:30 18:11 WBC 5.0 RBC 3.55 L Hgb 9.9 L Hct 32.6 L MCV 91.8 MCH 27.9 MCHC 30.4 L RDW Std Deviation 53.1 H RDW Coeff of Kevyn 15.6 H Plt Count 275 MPV 11.0 Immature Gran % (Auto) 0.600 Neut % (Auto) 71.8 H Lymph % (Auto) 13.4 L Rawl[place] % (Auto) 8.2 Eos % (Auto) 4.6 Baso % (Auto) 1.4 H Absolute Neuts (auto) 3.6 Absolute Lymphs (auto) 0.67 L Nucleated RBC % 0 Sodium 138 Potassium 4.2 Chloride 107 Carbon Dioxide 25.0 Anion Gap 6 BUN 38 H Creatinine 1.61 H Estim Creat Clear Calc 31.86 Est GFR (MDRD) Af Amer 40 L Est GFR (MDRD) Non-Af 33 L BUN/Creatinine Ratio 23.6 H Glucose 161 H Calcium 9.8 Troponin I High Sens 12 13 Urine Color Yellow Urine Clarity Sl. Cloudy Urine pH 8.0 Ur Specific Thornton 1.015 Urine Protein Negative Urine Glucose (UA) Normal Urine Ketones Negative Urine Occult Blood Negative Urine Nitrite Negative Urine Bilirubin Negative Urine Urobilinogen Normal Ur Leukocyte Esterase 100 H Urine RBC 0 SEEN Urine WBC 10-25 SEEN Ur Squamous Epith Cells 0-5 SEEN Urine Bacteria 3+ Urine Mucus 0 SEEN Radiography Diagnostic Testing: Clinical Impression(s) from Imaging Studies Chest X-Ray 05/20/23 16:08 IMPRESSION: No definite acute or significant abnormality seen. Electronically Signed: Eugene Navarro MD at 16:24 EDT , EKG Initial EKG: Comments: My independent interpretation of the patient's EKG shows what appears to be a regular rhythm and possible junctional. Overall rate is 54. No ectopy. No acute ST elevation or depression. She has poor anterior lateral R wave. QRS duration and QTc are within normal. This EKG is actually quite similar to 1 from 12 April of this year. At that time her rate was 57. Management Discussion w/another healthcare provider: Hospitalist Discharge Plan Dx/Rx/DC Orders Clinical Impression: Urinary tract infection, Malaise, Bradycardia, History of coronary artery disease, Chest pain, Dehydration Disposition Disposition: Acute Care Hospital [facility] Discharge Date/Time: 05/20/23 21:11
--- NOTE | 2023-05-20 16:08 | RAD_ITS ---
STUDY: X-RAY CHEST REASON FOR EXAM: Female, 72 years old. chest pain TECHNIQUE: Single AP portable view of the chest. COMPARISON: 04/12/2023. FINDINGS: The lungs are clear and expanded. There is no demonstrated pleural abnormality. There is moderate cardiac enlargement. There has been previous median sternotomy. Normal mediastinum and yasir. Normal visualized pulmonary arteries. Normal visualized aortic arch and descending thoracic aorta. Normal visualized thoracic spine. Normal visualized ribs, clavicles, and shoulders. There is no demonstrated abnormality of the visualized soft tissue structures of the upper abdomen. RAD/Chest 1 View (Portable) IMPRESSION: No definite acute or significant abnormality seen. Electronically Signed: Eugene Navarro MD at 16:24 EDT ,
[2023-05-20 16:12] LABS: Absolute Lymphocyte Count 0.67 X10^3/uL (0.83-4.51); Absolute Neutrophil Count 3.6 X10^3/uL (2.0-7.7); Basophil# 0.07 X10^3/uL; Basophil% 1.4 % (0-1); Eosinophil# 0.23 X10^3/uL; Eosinophils% 4.6 % (0-5); Hematocrit 32.6 % (37-47); Hemoglobin 9.9 g/dL (12.0-15.0); Lymphocyte # 0.67 X10^3/ul (0.83-4.51); Lymphocyte % 13.4 % (19-41); Mean Corp Hgb Conc 30.4 g/dL (32-36); Mean Corpuscular Hgb 27.9 pg (27.0-32.0); Mean Corpuscular Volume 91.8 fL (81-99); Monocyte# 0.41 X10^3/uL; Monocyte% 8.2 % (0-10); NRBC Flagged by Analyzer 0 % (0-5); Neutrophil % 71.8 % (47-70); Platelet Count 275 K/mm3 (150-450); RBC Distribution Width CV 15.6 % (11.6-14.6); RBC Distribution Width SD 53.1 fl (35.1-43.9); Red Blood Count 3.55 M/mm3 (4.2-5.4)
[2023-05-20 16:28] LABS: Anion Gap 6 (5-15); BUN 38 mg/dL (7-18); BUN/Creat Ratio 23.6 RATIO (10-20); Calcium,Total 9.8 mg/dL (8.5-10.1); Chloride 107 mmol/L (98-107); Creatinine, Serum 1.61 mg/dL (0.55-1.02); EST Glomerular Filtration Rate 33 mL/min (>60); Est Glom Filt Rate - Afr Amer 40 mL/min (>60); Estimated Creatinine Clearance 31.86 ml/min; Glucose 161 mg/dL (74-106); Potassium 4.2 mmol/L (3.5-5.1); Sodium Level 138 mmol/L (136-145); Troponin-I HS (w/2H Reflex) 12 pg/mL (3.0-54.0)
[2023-05-20 16:46] LABS: Mucous, Urine 0 SEEN /hpf (<or=2+); Red Blood Cells-Urine 0 SEEN /hpf (0-5)
[2023-05-20 16:49] LABS: Color, Urine Yellow (Yellow); Glucose, Dipstick Normal (Normal); Ketone-Dipstick Negative (Negative); Leukocyte Esterase-Dipstick 100 /ul (Negative); Nitrite-Dipstick Negative (Negative); Occult Blood-Urine Negative /ul (Negative); Protein-Dipstick Negative (Negative); Specific Gravity, Urine 1.015 (1.002-1.030); Urine Bilirubin Dipstick Negative (Negative); Urine Clarity Sl. Cloudy (Clear); Urine Urobilinogen Normal (Normal)
[2023-05-20 17:02] LABS: Bacteria 3+ /hpf (None Seen); White Blood Cells 10-25 SEEN /hpf (0-5)
[2023-05-20 17:03] LABS: Squamous Epithelial Cells - UA 0-5 SEEN /hpf (5-10)
[2023-05-20 18:05] LABS: Reflex Troponin-HS? (from REC) Y
[2023-05-20] MEDS: Ceftriaxone 1 GM/50 ML BAG IV (18:14)
[2023-05-20 18:44] LABS: Troponin-I HS 13 pg/mL (3.0-54.0)
--- NOTE | 2023-05-20 19:05 | PCM.HP.STD ---
HPI - General General Date of Admission: 05/20/23 Date of Service: 05/20/23 Chief Complaint: Bradycardia, fatigue HPI Narrative MADAN CARRION is a 72 F with history of CAD s/p CABG x4, A-fib on Xarelto, type 2 diabetes, anemia, hyperlipidemia, hypothyroidism and KASANDRA who presented to the [facility] ED on 05/20/23 with worsening fatigue. Patient seen at bedside, patient's daughter present. Patient was seen walking with her rolling walker going to the bathroom and coming back. She ambulated quite well, had no issues getting in and out of bed. She currently reports generalized fatigue but otherwise has no acute concerns. She denies any acute pain or discomfort. She denies any fevers or chills. She denies any chest pain or shortness of breath with exertion. She lives at home with her grandson (daughter's son), and he has been helping her around the house recently as much as possible. She has also had home health care since discharge from the hospital in late March, and they have been coming in to see her multiple times per week. States she generally has not been feeling well over the last several days. Has not been eating or drinking very much. Has had little energy. No other acute concerns. Labs in the ED were notable for normal WBC count, hemoglobin 9.9 (baseline around 8-9), normal electrolytes, creatinine 1.61, BUN 38, troponins 12 with repeat 13, fairly benign UA. Chest x-ray was nonacute. EKG reviewed in the ED showed a heart rate in the low 50s, with concern for a junctional rhythm. [facility] Medical History Anemia Anemia of chronic disease Anticoagulant long-term use Anxiety and depression Arthritis Atrial fibrillation CAD (coronary artery disease) CPAP (continuous positive airway pressure) dependence Diabetes mellitus DM type 2, goal HbA1c < 7% DVT (deep venous thrombosis) Failure of outpatient treatment Hematoma of right knee region History of stress incontinence Hx of necrotizing fasciitis Hypertension Hypothyroidism Insulin dependent diabetes mellitus Leg swelling Open wound of right knee with complication PAF (paroxysmal atrial fibrillation) Restless legs Stage 3b chronic kidney disease (CKD) Traumatic hematoma of right knee Wears dentures Home Medications atorvastatin 40 mg tablet 40 mg PO QHS Cholesterol 09/07/14 [History Last Taken 04/06/23] fenofibric acid (choline) 135 mg capsule,delayed release (Trilipix) 135 mg PO DAILY Cholesterol 09/07/14 [History Last Taken 04/06/23] levothyroxine 175 mcg tablet 200 mcg PO DAILY Thyroid 04/12/20 [History Last Taken 04/06/23] bumetanide 0.5 mg tablet 1 mg PO DAILY BP 02/17/21 [History Last Taken 04/06/23] insulin glargine U-300 conc 300 unit/mL (1.5 mL) subcutaneous pen (Toujeo SoloStar U-300 Insulin) 35 unit subcut QHS Diabetes 02/17/21 [History Last Taken 04/06/23] insulin lispro 100 unit/mL subcutaneous solution (Humalog U-100 Insulin) 18 unit subcut BREAKFAST Diabetes 02/17/21 [History Last Taken 04/06/23] acetaminophen 500 mg tablet 1,000 mg (2 x 500 mg) PO Q6H PRN PRN Pain Score 1-5 #0 tabs 05/14/21 [Rx Last Taken 04/06/23] insulin lispro 100 unit/mL subcutaneous pen 25 unit subcut LUNCH diabetes 05/30/21 [History Last Taken 04/06/23] amiodarone 200 mg tablet 100 mg PO DAILY hrt 11/12/21 [History Last Taken 04/06/23] lisinopril 10 mg tablet 40 mg PO DAILY bp 04/11/23 [History Last Taken Unknown] ofloxacin 0.3 % eye drops 1 drp ophthalmic (eye) Q6H eye 04/11/23 [History Last Taken Unknown] prednisolone acetate 1 % eye drops,suspension 1 drp ophthalmic (eye) BID eye 04/11/23 [History Last Taken Unknown] sodium chloride 5 % eye drops 1 drp ophthalmic (eye) BID eye 04/11/23 [History Last Taken Unknown] ascorbic acid (vitamin C) 500 mg tablet 500 mg PO BID 30 days #60 tabs 04/21/23 [Rx Last Taken Unknown] ferrous sulfate 325 mg (65 mg iron) tablet (FeroSul) 325 mg PO DAILY@1200 #30 tabs 04/21/23 [Rx Last Taken Unknown] rivaroxaban 10 mg tablet (Xarelto) 10 mg PO DINNER 30 days #30 tabs 04/21/23 [Rx Last Taken Unknown] aspirin 81 mg tablet,delayed release (Adult Aspirin Regimen) 81 mg PO DAILY 05/20/23 [History Last Taken Unknown] Allergy/AdvReac Type Severity Reaction Status Date / Time hydralazine HCl Allergy Other Verified 05/20/23 15:28 [From Apresoline] ondansetron [From Zofran] AdvReac Nausea Verified 05/20/23 15:28 Family History Mother Diabetes Heart disease Hypertension Father Diabetes Heart disease Hypertension Surgical History History of cardiac catheterization History of cardiac radiofrequency ablation History of hip replacement History of quadruple bypass History of total left hip replacement Hx of CABG Hx of cholecystectomy Hx of colonoscopy Hx of tubal ligation Social History household members: none housing: house number of children: 3 Smoking Status: Former smoker alcohol intake: never substance use type: does not use ROS Constitutional Constitutional: Reports fatigue and malaise; Denies chills, fever(s) or weakness Cardiovascular Cardiovascular: Denies chest pain, dyspnea on exertion, edema or lightheadedness Respiratory/Chest Respiratory/Chest: Denies cough Gastrointestinal Gastrointestinal: Denies abdominal pain Vital Signs Vital Signs Vital Signs: 05/20/23 15:28 05/20/23 15:52 05/20/23 15:52 Temperature 97.4 F L Temperature Source Temporal Pulse Rate 62 Respiratory Rate 18 Respiratory Effort Short of Breath Blood Pressure 183/55 H Blood Pressure Mean 97 Pulse Ox 100 Oxygen Delivery Method Room Air Room Air 05/20/23 16:25 05/20/23 17:25 05/20/23 16:06 Temperature Temperature Source Pulse Rate 53 L 52 L 51 L Respiratory Rate 18 11 L Respiratory Effort Blood Pressure 155/45 H Blood Pressure Mean 81 Pulse Ox 100 Oxygen Delivery Method Room Air 05/20/23 16:10 05/20/23 16:15 05/20/23 16:20 Temperature Temperature Source Pulse Rate 51 L 52 L 54 L Respiratory Rate 16 12 9 L Respiratory Effort Blood Pressure 161/45 H Blood Pressure Mean 76 Pulse Ox 99 Oxygen Delivery Method Room Air 05/20/23 16:38 05/20/23 16:40 05/20/23 16:45 Temperature Temperature Source Pulse Rate 63 58 L 56 L Respiratory Rate 11 L 9 L 11 L Respiratory Effort Blood Pressure 157/47 H Blood Pressure Mean 77 Pulse Ox 98 Oxygen Delivery Method Room Air 05/20/23 16:50 05/20/23 17:00 05/20/23 17:10 Temperature Temperature Source Pulse Rate 55 L 53 L 50 L Respiratory Rate 10 L 12 16 Respiratory Effort Blood Pressure 146/44 H Blood Pressure Mean 73 Pulse Ox 96 Oxygen Delivery Method Room Air 05/20/23 17:15 05/20/23 17:20 05/20/23 17:30 Temperature Temperature Source Pulse Rate 55 L 52 L 53 L Respiratory Rate 17 13 8 L Respiratory Effort Blood Pressure 145/38 H 155/45 H Blood Pressure Mean 65 75 Pulse Ox 95 99 Oxygen Delivery Method Room Air Room Air 05/20/23 17:40 05/20/23 17:45 05/20/23 17:50 Temperature Temperature Source Pulse Rate 52 L 51 L 48 L Respiratory Rate 10 L 8 L 9 L Respiratory Effort Blood Pressure 151/38 H Blood Pressure Mean 69 Pulse Ox 96 Oxygen Delivery Method Room Air 05/20/23 18:00 05/20/23 18:10 05/20/23 18:15 Temperature Temperature Source Pulse Rate 55 L 57 L 53 L Respiratory Rate 15 12 9 L Respiratory Effort Blood Pressure 133/41 H 150/42 H Blood Pressure Mean 67 71 Pulse Ox 95 98 Oxygen Delivery Method Room Air Room Air 05/20/23 18:20 Temperature Temperature Source Pulse Rate 52 L Respiratory Rate 12 Respiratory Effort Blood Pressure Blood Pressure Mean Pulse Ox Oxygen Delivery Method Weight Weight: 127.868 kg Body Mass Index (BMI) 42.8 Physical Exam Const alert and oriented x3 Constitutional Narrative: Sitting comfortably in bed, conversing normally, no acute distress. General Appearance: cooperative and comfortable HEENT normocephalic, head/scalp atraumatic, hearing grossly normal bilaterally, nasal mucous membranes and turbinates normal and moist oral mucous membranes Eyes PERRL, EOMs intact bilaterally and conjunctivae normal Neck full ROM, no lymphadenopathy and supple Lymph Lymphatic: no lymphadenopathy noted Chest inspection of chest normal Resp normal respiratory effort, normal air movement, no use of accessory muscles and clear to auscultation bilaterally Cardio regular rhythm, no murmurs and peripheral pulses 2+ throughout Cardio Narrative: Bradycardic. GI normal to inspection, nondistended, normoactive bowel sounds, soft to palpation, non-tender and non-distended Back/Spine normal ROM Extremity normal to inspection, full ROM and no pedal edema Skin no rashes or lesions noted Psych mental status grossly normal Results Lab / Micro Data 05/20/23 15:59 05/20/23 15:59 Labs: Laboratory Results - last 24 hr 05/20/23 15:59: WBC 5.0, RBC 3.55 L, Hgb 9.9 L, Hct 32.6 L, MCV 91.8, MCH 27.9, MCHC 30.4 L, RDW Std Deviation 53.1 H, RDW Coeff of Kevyn 15.6 H, Plt Count 275, MPV 11.0, Immature Gran % (Auto) 0.600, Neut % (Auto) 71.8 H, Lymph % (Auto) 13.4 L, Mcdonough % (Auto) 8.2, Eos % (Auto) 4.6, Baso % (Auto) 1.4 H, Absolute Neuts (auto) 3.6, Absolute Lymphs (auto) 0.67 L, Nucleated RBC % 0, Sodium 138, Potassium 4.2, Chloride 107, Carbon Dioxide 25.0, Anion Gap 6, BUN 38 H, Creatinine 1.61 H, Estim Creat Clear Calc 31.86, Est GFR (MDRD) Af Amer 40 L, Est GFR (MDRD) Non-Af 33 L, BUN/Creatinine Ratio 23.6 H, Glucose 161 H, Calcium 9.8, Troponin I High Sens 12 05/20/23 16:30: Urine Color Yellow, Urine Clarity Sl. Cloudy, Urine pH 8.0, Ur Specific [place] 1.015, Urine Protein Negative, Urine Glucose (UA) Normal, Urine Ketones Negative, Urine Occult Blood Negative, Urine Nitrite Negative, Urine Bilirubin Negative, Urine Urobilinogen Normal, Ur Leukocyte Esterase 100 H, Urine RBC 0 SEEN, Urine WBC 10-25 SEEN, Ur Squamous Epith Cells 0-5 SEEN, Urine Bacteria 3+, Urine Mucus 0 SEEN 05/20/23 18:11: Troponin I High Sens 13 Radiology Impression Chest X-Ray 05/20/23 16:08 IMPRESSION: No definite acute or significant abnormality seen. Electronically Signed: Eugene Navarro MD at 16:24 EDT , Assessment & Plan Assessment/Plan (1) Debility: PLAN: Plan Patient is a 72 F with history of CAD s/p CABG x4, A-fib on Xarelto, type 2 diabetes, anemia, hyperlipidemia, hypothyroidism and KASANDRA who presented to the [facility] ED on 05/20/23 with worsening fatigue. 1. Fatigue, general debility Patient had recent admission about 1 month ago for a large right knee hematoma requiring evacuation by orthopedics. Initially plan for discharge to the TCU for rehab, however there was limited bed availability and patient was discharged home with home health care. Lives at home with her grandson. Has had home health care in the home helping her with daily activities multiple times per week. Has been able to ambulate with her walker without any significant issues. -PT/OT/case management consulted. 2. CHRISTIAN, hypovolemia Suspect secondary to poor oral intake at home. Unclear if poor intake is due to generally not feeling well, or secondary to another process. Creatinine 1.61 on admit, baseline appears to be around 1.0-1.2. Appeared dry on exam. Was notably given a dose of ceftriaxone in the ED for a possible UTI, however UA is fairly benign at this time. ? Started on maintenance fluids with LR 100 mL/hour. Monitor BMP. No need for antibiotics at this time. 3. Bradycardia, history of A-fib on Xarelto Unclear etiology of bradycardia. EKG in the ED showed a heart rate in the low 50s, with concern for junctional rhythm. On my review, was difficult to discern if there were any P waves. Patient notably had an EKG done last month during her admission that showed a very similar rhythm. -Given patient's known history of CAD with CABG as noted below, and her advanced age, have concern that there could be degeneration of her conduction system. Low suspicion for acute ischemic disease, given normal troponins and no EKG findings consistent with ischemia. Cardiology consulted, appreciate recommendations. Monitor telemetry. Okay to continue home amiodarone at this time. Continue home Xarelto. 4. Recent right knee hematoma Had prolonged admission from 04/11 to 04/21/2023 for right lower extremity cellulitis with a large concurrent right knee hematoma. Required evacuation of the hematoma by orthopedics. Was treated with vancomycin and ceftriaxone, then changed to Keflex on discharge. Was discharged home with home health care, has had therapy and home multiple days per week as noted above. -Recs on discharge per orthopedics were for Xarelto 10 mg daily, followed by 20 mg daily as tolerated. Med list shows Xarelto 10 mg daily, but will start Xarelto 20 mg daily at this time. Monitor for any signs of bleeding. 5. Type 2 diabetes ? Home regimen of glargine 35 units at night, Humalog 18/25/unknown units at breakfast/lunch/dinner. We will start Lantus 20 units at night, Humalog 10 units 3 times 3 times daily AC with sliding scale, adjust as needed. 6. Hypothyroidism ? Continue home Synthroid. 7. CAD s/p CABG ? Had CABG x4 back in 2011. Has never had any stents placed. Continue home aspirin and statin. 8. Iron deficiency anemia ? Continue home iron supplement. 9. KASANDRA ? Does not tolerate home CPAP. Outpatient follow-up as needed. DVT prophylaxis: Xarelto CODE STATUS: Full code, verified Expected disposition: Home with home health care, DBD Total clinical time spent by myself addressing the patient's medical issues, reviewing all the data, and collaborating with patient's care team: 55 minutes.
[2023-05-20] MEDS: Lactated Ringers 1,000 ML 100 ML IV (21:56)
[2023-05-20] MEDS: Insulin Glargine-YFGN 100 UNIT/ML Pen 28 UNIT SC (21:59)
[2023-05-20] MEDS: Atorvastatin Calcium 40 MG Tablet PO (21:59)
[2023-05-20 22:18] LABS: Bedside Glucose 138 mg/dL (74-106)
[2023-05-21] VITALS (9 sets, daily range): BP systolic 115–137; BP diastolic 42–56; PULSE 51–56; RESP 16–18; TEMP 36.1–36.9; O2SAT 95–100
[2023-05-21 07:05] LABS: Bedside Glucose 99 mg/dL (74-106)
[2023-05-21] MEDS: Lactated Ringers 1,000 ML 100 ML IV (07:49)
[2023-05-21] MEDS: Amiodarone 200 MG Tablet 100 MG PO (08:10)
[2023-05-21] MEDS: Aspirin E.C. 81 MG Tablet PO (08:10)
--- NOTE | 2023-05-21 08:24 | PCM.PN.HOSP ---
Reason for Visit Reason for Visit: Diagnoses Other malaise (05/20/23) Subjective Subjective Patient is a 72-year-old female admitted with progressive generalized weakness. Found to have acute kidney injury on admission Objective Data Objective Data Vital Signs: Vital Signs Temp Pulse Resp BP Pulse Ox O2 Del Method 97.8 F 56 L 16 136/56 H 99 Room Air 05/21/23 08:08 05/21/23 08:08 05/21/23 08:08 05/21/23 08:08 05/21/23 08:08 05/21/23 08:14 Oxygen Delivery Method Room Air Weight: 126.3 kg Body Mass Index (BMI) 42.3 Intake & Output: Intake and Output for Last 24 Hours 05/19/23 05/20/23 05/21/23 23:59 23:59 23:59 Intake Total 290 / 290 988.33 / 988.33 Balance 290 / 290 988.33 / 988.33 Lab / Micro Data 05/20/23 15:59 05/20/23 15:59 Labs: Laboratory Results - last 24 hr 05/20/23 15:59: WBC 5.0, RBC 3.55 L, Hgb 9.9 L, Hct 32.6 L, MCV 91.8, MCH 27.9, MCHC 30.4 L, RDW Std Deviation 53.1 H, RDW Coeff of Kevyn 15.6 H, Plt Count 275, MPV 11.0, Immature Gran % (Auto) 0.600, Neut % (Auto) 71.8 H, Lymph % (Auto) 13.4 L, Hughes % (Auto) 8.2, Eos % (Auto) 4.6, Baso % (Auto) 1.4 H, Absolute Neuts (auto) 3.6, Absolute Lymphs (auto) 0.67 L, Nucleated RBC % 0, Sodium 138, Potassium 4.2, Chloride 107, Carbon Dioxide 25.0, Anion Gap 6, BUN 38 H, Creatinine 1.61 H, Estim Creat Clear Calc 31.86, Est GFR (MDRD) Af Amer 40 L, Est GFR (MDRD) Non-Af 33 L, BUN/Creatinine Ratio 23.6 H, Glucose 161 H, Calcium 9.8, Troponin I High Sens 12 05/20/23 16:30: Urine Color Yellow, Urine Clarity Sl. Cloudy, Urine pH 8.0, Ur Specific [place] 1.015, Urine Protein Negative, Urine Glucose (UA) Normal, Urine Ketones Negative, Urine Occult Blood Negative, Urine Nitrite Negative, Urine Bilirubin Negative, Urine Urobilinogen Normal, Ur Leukocyte Esterase 100 H, Urine RBC 0 SEEN, Urine WBC 10-25 SEEN, Ur Squamous Epith Cells 0-5 SEEN, Urine Bacteria 3+, Urine Mucus 0 SEEN 05/20/23 18:11: Troponin I High Sens 13 05/20/23 21:50: POC Glucose 138 H 05/21/23 06:37: POC Glucose 99 Radiography Diagnostic Testing: Radiology Impression Chest X-Ray 05/20/23 16:08 IMPRESSION: No definite acute or significant abnormality seen. Electronically Signed: Eugene Navarro MD at 16:24 EDT , Physical Exam Narrative GENERAL: cooperative HEENT: Atraumatic; normocephalic EYES; Anicteric, Normal Conjunctiva NECK; supple, normal thyroid, RESPIRATORY: Diminished to auscultation CARDIOVASCULAR: Regular S1 S2, GI: soft, normoactive bowel sounds, : No Renal angle tenderness; EXTREMITIES: No edema, no clubbing, MUSCULOSKELETAL: no muscle wasting NEURO: Awake; no lateralizing signs. SKIN: No Rash PSYCH; Flat affect Assessment & Plan Assessment/Plan (1) Debility: PLAN: Plan Patient is a 72-year-old female admitted with progressive generalized weakness. Found to have acute kidney injury on admission 1. Acute kidney injury ? Superimposed on chronic kidney disease stage III. Secondary to decreased oral intake and hypovolemia. Admitted for for inpatient treatment with IV fluid with subsequent monitoring of electrolytes ordered 2. Acute cystitis ? Patient started on Rocephin urine culture sent 3. Chest pain with bradycardia ? Patient was seen in consultation by Dr. Tolbert with cardiology. Imdur added to patient treatment. Patient was offered option of undergoing subsequent evaluation with a left catheterization she however elected to follow-up with her primary business solution analyst as outpatient for an elective cardiac catheterization for subsequent eval. 4. Class II obesity with BMI of 42.3 ? Complicating care weight loss advised 5. Obstructive sleep apnea ? Consistent use of CPAP encouraged 6. Coronary artery disease ? With previous CABG. Patient is on guideline directed medical therapy 7. Paroxysmal A-fib Rate controlled on systemic anticoagulation with Xarelto continue 8. Diabetes mellitus type 2 ? Patient is on long-acting insulin and continue in addition to Accu-Cheks ACHS with sliding scale coverage 9. Hypothyroidism - Patient is on levothyroxine home dose continued 10. Dyslipidemia -Patient is on statin therapy, continued at home dose 11. Anemia - Secondary to chronic disorder monitoring H&H and transfuse if patient becomes symptomatic or hemoglobin falls below 7 12. Recent knee hematoma ? Underwent evacuation by orthopedic surgery was treated with vancomycin and Rocephin plan was for patient to be discharged to a assisted facility she however ended up going home with home therapy 13. Physical deconditioning - Requested for PT OT eval and social worker assistant to assist with discharge planning 14. DVT prophylaxis ? On Xarelto Time spent in the patient's overall evaluation,decision-making process, review of diagnostic data, adjustment of management, discussion with other providers, nursing nursing and ancillary staff involved in patient's care documentation, 50 Minutes Charges/Coding Visit Charges Inpatient E&M: 35162 Subs Hosp L3
--- NOTE | 2023-05-21 09:07 | PCM.CONS.C ---
Assessment & Plan Assessment/Plan (1) Unstable angina: PLAN: Continue aspirin. Start on nitrates. Patient is having typical symptoms that she clearly identifies with her previous episodes of angina pectoris. I therefore recommended coronary angiography with possible revascularization. Discussed with patient. She understand these and wishes to be transferred under care of her own director of cloud services at [facility] for the procedure. (2) Hx of CABG: PLAN: See #1 above. (3) Bradycardia: PLAN: Appears to be sinus bradycardia. Patient has history of paroxysmal atrial fibrillation. On amiodarone therapy. Patient is asymptomatic with her bradycardia. Continue to monitor. (4) Hypertension: PLAN: Add nitrates. (5) PAF (paroxysmal atrial fibrillation): PLAN: History of ablation. On rivaroxaban. (6) Diabetes mellitus: PLAN: As per internal medicine. (7) Traumatic hematoma of right knee: PLAN: Status post evacuation. (8) Chronic kidney disease: PLAN: Continue to monitor. HPI Consult Data Date of Consult: 05/21/23 HPI Narrative Reason for Consultation: Bradycardia HPI Narrative: This patient has past medical history significant for coronary artery disease status post CABG, hypertension and paroxysmal atrial fibrillation status post ablation. She presented to the hospital yesterday with complaints of anterior chest tightness. According to her, this radiated to the back between her shoulder blades. The discomfort was relieved on its own. She was also noted to have bradycardia in the emergency room and was admitted. Per patient, she has been having episodes of chest pain for the last few weeks. According to her, these occur at rest. Lasts from 5 to 10 minutes and then relieved on its own. She identifies it as the same symptoms as she was having prior to her coronary artery bypass graft surgery. She does feel short of breath with that. Patient denies having any dizziness or lightheadedness. Denies any syncope or presyncope. [facility] Medical History (Updated 05/21/23 @ 09:[address] Juanjose Tolbert MD) Anemia Anemia of chronic disease Anticoagulant long-term use Anxiety and depression Arthritis Atrial fibrillation CAD (coronary artery disease) CPAP (continuous positive airway pressure) dependence Diabetes mellitus DM type 2, goal HbA1c < 7% DVT (deep venous thrombosis) Failure of outpatient treatment Hematoma of right knee region History of stress incontinence Hx of necrotizing fasciitis Hypertension Hypothyroidism Insulin dependent diabetes mellitus Leg swelling Open wound of right knee with complication PAF (paroxysmal atrial fibrillation) Restless legs Stage 3b chronic kidney disease (CKD) Traumatic hematoma of right knee Wears dentures Home Medications atorvastatin 40 mg tablet 40 mg PO QHS Cholesterol 09/07/14 [History Last Taken 04/06/23] fenofibric acid (choline) 135 mg capsule,delayed release (Trilipix) 135 mg PO DAILY Cholesterol 09/07/14 [History Last Taken 04/06/23] levothyroxine 175 mcg tablet 200 mcg PO DAILY Thyroid 04/12/20 [History Last Taken 04/06/23] bumetanide 0.5 mg tablet 1 mg PO DAILY BP 02/17/21 [History Last Taken 04/06/23] insulin glargine U-300 conc 300 unit/mL (1.5 mL) subcutaneous pen (Toujeo SoloStar U-300 Insulin) 35 unit subcut QHS Diabetes 02/17/21 [History Last Taken 04/06/23] insulin lispro 100 unit/mL subcutaneous solution (Humalog U-100 Insulin) 18 unit subcut BREAKFAST Diabetes 02/17/21 [History Last Taken 04/06/23] acetaminophen 500 mg tablet 1,000 mg (2 x 500 mg) PO Q6H PRN PRN Pain Score 1-5 #0 tabs 05/14/21 [Rx Last Taken 04/06/23] insulin lispro 100 unit/mL subcutaneous pen 25 unit subcut LUNCH diabetes 05/30/21 [History Last Taken 04/06/23] amiodarone 200 mg tablet 100 mg PO DAILY hrt 11/12/21 [History Last Taken 04/06/23] lisinopril 10 mg tablet 40 mg PO DAILY bp 04/11/23 [History Last Taken Unknown] ofloxacin 0.3 % eye drops 1 drp ophthalmic (eye) Q6H eye 04/11/23 [History Last Taken Unknown] prednisolone acetate 1 % eye drops,suspension 1 drp ophthalmic (eye) BID eye 04/11/23 [History Last Taken Unknown] sodium chloride 5 % eye drops 1 drp ophthalmic (eye) BID eye 04/11/23 [History Last Taken Unknown] ascorbic acid (vitamin C) 500 mg tablet 500 mg PO BID 30 days #60 tabs 04/21/23 [Rx Last Taken Unknown] ferrous sulfate 325 mg (65 mg iron) tablet (FeroSul) 325 mg PO DAILY@1200 #30 tabs 04/21/23 [Rx Last Taken Unknown] rivaroxaban 10 mg tablet (Xarelto) 10 mg PO DINNER 30 days #30 tabs 04/21/23 [Rx Last Taken Unknown] aspirin 81 mg tablet,delayed release (Adult Aspirin Regimen) 81 mg PO DAILY 05/20/23 [History Last Taken Unknown] Allergy/AdvReac Type Severity Reaction Status Date / Time hydralazine HCl Allergy Other Verified 05/20/23 15:28 [From Apresoline] ondansetron [From Zofran] AdvReac Nausea Verified 05/20/23 15:28 Family History Mother Diabetes Heart disease Hypertension Father Diabetes Heart disease Hypertension Surgical History (Updated 05/21/23 @ 09:[address] Juanjose Tolbert MD) History of cardiac catheterization History of cardiac radiofrequency ablation History of hip replacement History of quadruple bypass History of total left hip replacement Hx of CABG Hx of cholecystectomy Hx of colonoscopy Hx of tubal ligation Social History household members: none housing: house number of children: 3 Smoking Status: Former smoker alcohol intake: never substance use type: does not use Physical Exam Const Constitutional Narrative: Comfortable. No apparent distress. Obese. Heart sounds 1 and 2 are noted. 3/6 systolic murmur at apex and base. Chest clear to auscultation bilaterally. Abdomen soft. Alert oriented x3. 2+ ankle edema on the left side. Right leg is wrapped in a bandage. Risk Stratification Risk Stratification Applicable: No Objective Data Vital Signs: Vital Signs Temp Pulse Resp BP Pulse Ox O2 Del Method 97.8 F 56 L 16 136/56 H 99 Room Air 05/21/23 08:08 05/21/23 08:08 05/21/23 08:08 05/21/23 08:08 05/21/23 08:08 05/21/23 08:14 Oxygen Delivery Method Room Air Weight: 278 lb 7.101 oz Body Mass Index (BMI) 42.3 Intake & Output: Intake and Output for Last 24 Hours 05/19/23 05/20/23 05/21/23 23:59 23:59 23:59 Intake Total 290 / 290 988.33 / 988.33 Balance 290 / 290 988.33 / 988.33 Lab / Micro Data 05/20/23 15:59 05/20/23 15:59 Labs: Laboratory Results - last 24 hr 05/20/23 15:59: WBC 5.0, RBC 3.55 L, Hgb 9.9 L, Hct 32.6 L, MCV 91.8, MCH 27.9, MCHC 30.4 L, RDW Std Deviation 53.1 H, RDW Coeff of Kevyn 15.6 H, Plt Count 275, MPV 11.0, Immature Gran % (Auto) 0.600, Neut % (Auto) 71.8 H, Lymph % (Auto) 13.4 L, [place] % (Auto) 8.2, Eos % (Auto) 4.6, Baso % (Auto) 1.4 H, Absolute Neuts (auto) 3.6, Absolute Lymphs (auto) 0.67 L, Nucleated RBC % 0, Sodium 138, Potassium 4.2, Chloride 107, Carbon Dioxide 25.0, Anion Gap 6, BUN 38 H, Creatinine 1.61 H, Estim Creat Clear Calc 31.86, Est GFR (MDRD) Af Amer 40 L, Est GFR (MDRD) Non-Af 33 L, BUN/Creatinine Ratio 23.6 H, Glucose 161 H, Calcium 9.8, Troponin I High Sens 12 05/20/23 16:30: Urine Color Yellow, Urine Clarity Sl. Cloudy, Urine pH 8.0, Ur Specific Loop 1.015, Urine Protein Negative, Urine Glucose (UA) Normal, Urine Ketones Negative, Urine Occult Blood Negative, Urine Nitrite Negative, Urine Bilirubin Negative, Urine Urobilinogen Normal, Ur Leukocyte Esterase 100 H, Urine RBC 0 SEEN, Urine WBC 10-25 SEEN, Ur Squamous Epith Cells 0-5 SEEN, Urine Bacteria 3+, Urine Mucus 0 SEEN 05/20/23 18:11: Troponin I High Sens 13 05/20/23 21:50: POC Glucose 138 H 05/21/23 06:37: POC Glucose 99 Rhythm Strip Rhythm Strip: Sinus Rhythm Cardiology Labs/Tests 05/20/23 15:59: WBC 5.0, RBC 3.55 L, Hgb 9.9 L, Hct 32.6 L, MCV 91.8, MCH 27.9, MCHC 30.4 L, Plt Count 275, MPV 11.0, Immature Gran % (Auto) 0.600, Neut % (Auto) 71.8 H, Lymph % (Auto) 13.4 L, [place] % (Auto) 8.2, Eos % (Auto) 4.6, Baso % (Auto) 1.4 H, Absolute Neuts (auto) 3.6, Nucleated RBC % 0, Sodium 138, Potassium 4.2, Chloride 107, Carbon Dioxide 25.0, Anion Gap 6, BUN 38 H, Creatinine 1.61 H, Est GFR (MDRD) Af Amer 40 L, Est GFR (MDRD) Non-Af 33 L, BUN/Creatinine Ratio 23.6 H, Glucose 161 H, Calcium 9.8 05/20/23 16:30: Urine Color Yellow, Urine Clarity Sl. Cloudy, Urine pH 8.0, Ur Specific Loop 1.015, Urine Protein Negative, Urine Glucose (UA) Normal, Urine Ketones Negative, Urine Occult Blood Negative, Urine Nitrite Negative, Urine Bilirubin Negative, Urine Urobilinogen Normal, Ur Leukocyte Esterase 100 H, Urine RBC 0 SEEN, Urine WBC 10-25 SEEN Rhythm: EKG: ECG appears to show sinus bradycardia. No acute ischemic changes noted. ECHO: Stress Test: Cardiac Cath: PCI: CT Surgery: Holter monitor: EPS: PPM: CXR: Chest CT Scan: Radiography Diagnostic Testing: Radiology Impression Chest X-Ray 05/20/23 16:08 IMPRESSION: No definite acute or significant abnormality seen. Electronically Signed: Eugene Navarro MD at 16:24 EDT ,
--- NOTE | 2023-05-21 10:30 | CASEMGMT ---
FLORESITA PLATA chart review: Patient was admitted 04/06-04/09/23 and 04/11-04/21/23 for RLE cellulitis, recent large hematoma, and ABLA. See SW note from 04/07/23. Patient was discharged home with [facility] for custodial. Patient returned 05/20/23 for chest pain. Patient admitted for bradycardia and financial aid coordinator consult recommending heart cath. Patient states she attending her follow-up appts and was taking medications as prescribed. Patient wishes to return home with resumption of HHC with [facility].
--- NOTE | 2023-05-21 12:01 | CASEMGMT ---
Discharge Planning Resumption of HH services referral sent to [facility] via [facility]. Josie Rubin, Discharge Planning Asst.
[2023-05-21] MEDS: 0.9% Normal Saline 1,000 ML 100 ML IV ×2 (12:33→23:00)
[2023-05-21] MEDS: Ceftriaxone 1 GM/50 ML BAG IV (12:38)
[2023-05-21] MEDS: Ferrous Sulfate 325 MG Tablet PO (12:40)
[2023-05-21] MEDS: Isosorbide Mononitrate 30 MG Tablet PO (12:40)
[2023-05-21 12:47] LABS: Bedside Glucose 80 mg/dL (74-106)
--- NOTE | 2023-05-21 15:26 | WOUNDNOTE ---
wound photo: right knee
[2023-05-21] MEDS: Insulin Lispro 100 UNIT/ML INSULN.PEN 10 UNIT SC (17:19)
[2023-05-21] MEDS: Rivaroxaban 20 MG Tablet PO (17:20)
[2023-05-21 17:33] LABS: Bedside Glucose 187 mg/dL (74-106)
[2023-05-21] MEDS: Atorvastatin Calcium 40 MG Tablet PO (20:38)
[2023-05-21] MEDS: Insulin Glargine-YFGN 100 UNIT/ML Pen 28 UNIT SC (20:48)
[2023-05-21 21:09] LABS: Bedside Glucose 182 mg/dL (74-106)
[2023-05-22 02:33] VITALS: BP 130/58; PULSE 55; RESP 16; TEMP 36.6; O2SAT 99
[2023-05-22 03:00] VITALS: BP 130/58; PULSE 55; RESP 16; TEMP 36.6; O2SAT 99
[2023-05-22] MEDS: Acetaminophen 325 MG Tablet 650 MG PO (03:48)
[2023-05-22] MEDS: Levothyroxine 100 MCG Tablet 200 MCG PO (06:08)
[2023-05-22 06:30] LABS: Bedside Glucose 112 mg/dL (74-106)
[2023-05-22 07:05] LABS: Absolute Lymphocyte Count 0.64 X10^3/uL (0.83-4.51); Basophil# 0.06 X10^3/uL; Basophil% 1.3 % (0-1); Eosinophils% 6.7 % (0-5); Hematocrit 27.3 % (37-47); Lymphocyte # 0.64 X10^3/ul (0.83-4.51); Lymphocyte % 14.3 % (19-41); Mean Corp Hgb Conc 29.3 g/dL (32-36); Mean Corpuscular Hgb 28.2 pg (27.0-32.0); Mean Corpuscular Volume 96.1 fL (81-99); Mean Platelet Vol. 11.3 fl (6.2-12.0); Monocyte# 0.45 X10^3/uL; NRBC Flagged by Analyzer 0 % (0-5); Neutrophil # 3.03 X10^3/uL (2.7-7.7); Neutrophil % 67.5 % (47-70); Platelet Count 217 K/mm3 (150-450); RBC Distribution Width SD 57.2 fl (35.1-43.9); Red Blood Count 2.84 M/mm3 (4.2-5.4); White Blood Count 4.5 K/mm3 (4.4-11.0)
[2023-05-22 07:55] LABS: Anion Gap 3 (5-15); BUN 33 mg/dL (7-18); BUN/Creat Ratio 22.4 RATIO (10-20); Calcium,Total 8.3 mg/dL (8.5-10.1); Chloride 115 mmol/L (98-107); Creatinine, Serum 1.47 mg/dL (0.55-1.02); EST Glomerular Filtration Rate 37 mL/min (>60); Est Glom Filt Rate - Afr Amer 45 mL/min (>60); Glucose 126 mg/dL (74-106); Magnesium 2.2 mg/dL (1.6-2.6); Phosphorus 3.6 mg/dL (2.5-4.9); Potassium 3.7 mmol/L (3.5-5.1); Sodium Level 143 mmol/L (136-145)
--- NOTE | 2023-05-22 08:20 | PN.HOSP_ITS ---
Reason for Visit Reason for Visit: Diagnoses Type 2 diabetes mellitus without complications (05/20/23) Essential (primary) hypertension (05/20/23) Unstable angina (05/20/23) Paroxysmal atrial fibrillation (05/20/23) Chronic kidney disease, unspecified (05/20/23) Bradycardia, unspecified (05/20/23) Other malaise (05/20/23) Contusion of right knee, initial encounter (05/20/23) Presence of aortocoronary bypass graft (05/20/23) Subjective Subjective Urine Cx positive for Klebsiella pneumoniae sp pneum [place] Count >100,000 CFU/m L. sensitivities reviewed. Patient to be assessed for discharge Objective Data Objective Data Vital Signs: Vital Signs Temp Pulse Resp BP Pulse Ox O2 Del Method 97.9 F 55 L 16 130/58 H 99 Room Air 05/22/23 03:00 05/22/23 03:00 05/22/23 03:00 05/22/23 03:00 05/22/23 03:00 05/22/23 07:45 Oxygen Delivery Method Room Air Weight: 126.3 kg Body Mass Index (BMI) 42.3 Intake & Output: Intake and Output for Last 24 Hours 05/20/23 05/21/23 05/22/23 23:59 23:59 23:59 Intake Total 290 / 290 3508.33 / 3508.33 120 / 120 Balance 290 / 290 3508.33 / 3508.33 120 / 120 Lab / Micro Data 05/22/23 05:15 05/22/23 05:15 Labs: Laboratory Results - last 24 hr 05/21/23 12:26: POC Glucose 80 05/21/23 17:12: POC Glucose 187 H 05/21/23 20:48: POC Glucose 182 H 05/22/23 05:15: WBC 4.5, RBC 2.84 L, Hgb 8.0 L, Hct 27.3 L, MCV 96.1, MCH 28.2, MCHC 29.3 L, RDW Std Deviation 57.2 H, RDW Coeff of Kevyn 16.0 H, Plt Count 217, MPV 11.3, Immature Gran % (Auto) 0.200, Neut % (Auto) 67.5, Lymph % (Auto) 14.3 L, [place] % (Auto) 10.0, Eos % (Auto) 6.7 H, Baso % (Auto) 1.3 H, Absolute Neuts (auto) 3.0, Absolute Lymphs (auto) 0.64 L, Nucleated RBC % 0, Sodium 143, Potassium 3.7, Chloride 115 H, Carbon Dioxide 25.0, Anion Gap 3 L, BUN 33 H, Creatinine 1.47 H, Estim Creat Clear Calc 34.90, Est GFR (MDRD) Af Amer 45 L, Est GFR (MDRD) Non-Af 37 L, BUN/Creatinine Ratio 22.4 H, Glucose 126 H, Calcium 8.3 L, Phosphorus 3.6, Magnesium 2.2 05/22/23 06:12: POC Glucose 112 H Micro: Microbiology 05/20/23 16:30 Urine, Clean Catch Urine Culture - Preliminary GNR lactose oil and gas superintendent Rhythm Strip Rhythm Strip: Sinus Rhythm Physical Exam Narrative GENERAL: cooperative HEENT: Atraumatic; normocephalic EYES; Anicteric, Normal Conjunctiva NECK; supple, normal thyroid, RESPIRATORY: Diminished to auscultation CARDIOVASCULAR: Regular S1 S2, GI: soft, normoactive bowel sounds, : No Renal angle tenderness; EXTREMITIES: No edema, no clubbing, MUSCULOSKELETAL: no muscle wasting NEURO: Awake; no lateralizing signs. SKIN: No Rash PSYCH; Flat affect Assessment & Plan Assessment/Plan (1) Debility: PLAN: Plan Patient is a 72-year-old female admitted with progressive generalized weakness. Found to have acute kidney injury on admission 1. Acute kidney injury ? Superimposed on chronic kidney disease stage III. Secondary to decreased oral intake and hypovolemia. Admitted for for inpatient treatment with IV fluid with subsequent monitoring of electrolytes ordered 2. Acute cystitis ? Patient started on Rocephin urine culture sent Urine Cx positive for Klebsiella pneumoniae sp pneum [place] Count >100,000 CFU/mL 3. Chest pain with bradycardia ? Patient was seen in consultation by Dr. Tolbert with cardiology. Imdur added to patient treatment. Patient was offered option of undergoing subsequent evaluation with a left catheterization she however elected to follow-up with her primary technical support 1 software engineer as outpatient for an elective cardiac catheterization for subsequent eval. 4. Class II obesity with BMI of 42.3 ? Complicating care weight loss advised 5. Obstructive sleep apnea ? Consistent use of CPAP encouraged 6. Coronary artery disease ? With previous CABG. Patient is on guideline directed medical therapy 7. Paroxysmal A-fib Rate controlled on systemic anticoagulation with Xarelto continue 8. Diabetes mellitus type 2 ? Patient is on long-acting insulin and continue in addition to Accu-Cheks ACHS with sliding scale coverage 9. Hypothyroidism - Patient is on levothyroxine home dose continued 10. Dyslipidemia -Patient is on statin therapy, continued at home dose 11. Anemia - Secondary to chronic disorder monitoring H&H and transfuse if patient becomes symptomatic or hemoglobin falls below 7 12. Recent knee hematoma ? Underwent evacuation by orthopedic surgery was treated with vancomycin and Rocephin plan was for patient to be discharged to a long term facility she however ended up going home with home therapy 13. Physical deconditioning - Requested for PT OT eval and outreach and education social worker to assist with discharge planning 14. DVT prophylaxis ? On Xarelto Time spent in the patient's overall evaluation,decision-making process, review of diagnostic data, adjustment of management, discussion with other providers, nursing nursing and ancillary staff involved in patient's care documentation, 35 Minutes Charges/Coding Visit Charges Inpatient E&M: 16994 [facility] Hosp L2
[2023-05-22 08:33] VITALS: BP 126/47; PULSE 50; RESP 18; TEMP 36.5; O2SAT 100
[2023-05-22 08:34] VITALS: BP 126/47; PULSE 50; RESP 18; TEMP 36.5; O2SAT 100
[2023-05-22] MEDS: Ensure Plus High Protein 120 ML LIQUID PO (08:36)
[2023-05-22] MEDS: Amiodarone 200 MG Tablet 100 MG PO (08:36)
[2023-05-22] MEDS: Aspirin E.C. 81 MG Tablet PO (08:36)
[2023-05-22] MEDS: Isosorbide Mononitrate 30 MG Tablet PO (08:37)
[2023-05-22] MEDS: Ceftriaxone 1 GM/50 ML BAG IV (09:30)
[2023-05-22] MEDS: 0.9% Saline Lock 10 ML Syringe IV (09:30)
--- NOTE | 2023-05-22 11:08 | DS.PCM_ITS ---
Providers Date of Admission: 05/20/23 Date of Discharge: 05/22/23 Primary Care Physician: Dr. Maggi Chicas, DO Consultations 05/21/23 00:20 Consult: Cardiology Routine Consulting Provider: Juanjose Tolbert Reason for Consult: Concern for junctional bradycardia EMERGENT Consult: No MD Notified: Yes Date Notified: 05/21/23 Time Notified: 07:09 Method of Notification: Text Reason For Visit: BRADYCARDIA, FATIGUE Diagnosis Discharge Diagnosis (1) Debility: Status: Acute Code(s): R53.81 - Other malaise Plan Patient is a 72-year-old female admitted with progressive generalized weakness. Found to have acute kidney injury on admission 1. Acute kidney injury ? Superimposed on chronic kidney disease stage III. Secondary to decreased oral intake and hypovolemia. Admitted for for inpatient treatment with IV fluid with subsequent monitoring of electrolytes ordered 2. Acute cystitis ? Patient started on Rocephin urine culture sent Urine Cx positive for Klebsiella pneumoniae sp pneum [place] Count >100,000 CFU/mL 3. Chest pain with bradycardia ? Patient was seen in consultation by Dr. Tolbert with cardiology. Imdur added to patient treatment. Patient was offered option of undergoing subsequent evaluation with a left catheterization she however elected to follow-up with her primary service observer as outpatient for an elective cardiac catheterization for subsequent eval. 4. Class II obesity with BMI of 42.3 ? Complicating care weight loss advised 5. Obstructive sleep apnea ? Consistent use of CPAP encouraged 6. Coronary artery disease ? With previous CABG. Patient is on guideline directed medical therapy 7. Paroxysmal A-fib Rate controlled on systemic anticoagulation with Xarelto continue 8. Diabetes mellitus type 2 ? Patient is on long-acting insulin and continue in addition to Accu-Cheks ACHS with sliding scale coverage 9. Hypothyroidism - Patient is on levothyroxine home dose continued 10. Dyslipidemia -Patient is on statin therapy, continued at home dose 11. Anemia - Secondary to chronic disorder monitoring H&H and transfuse if patient becomes symptomatic or hemoglobin falls below 7 12. Recent knee hematoma ? Underwent evacuation by orthopedic surgery was treated with vancomycin and Rocephin plan was for patient to be discharged to a long term facility she however ended up going home with home therapy 13. Physical deconditioning - Requested for PT OT eval and social service agency director to assist with discharge planning 14. DVT prophylaxis ? On Xarelto Time spent in the patient's overall evaluation,decision-making process, review of diagnostic data, adjustment of management, discussion with other providers, nursing nursing and ancillary staff involved in patient's care documentation, 35 Minutes Medications at Discharge Home Medications atorvastatin 40 mg tablet 40 mg PO QHS Cholesterol 09/07/14 fenofibric acid (choline) 135 mg capsule,delayed release (Trilipix) 135 mg PO DAILY Cholesterol 09/07/14 levothyroxine 175 mcg tablet 200 mcg PO DAILY Thyroid 04/12/20 bumetanide 0.5 mg tablet 1 mg PO DAILY BP 02/17/21 insulin glargine U-300 conc 300 unit/mL (1.5 mL) subcutaneous pen (Toujeo SoloStar U-300 Insulin) 35 unit subcut QHS Diabetes 02/17/21 insulin lispro 100 unit/mL subcutaneous solution (Humalog U-100 Insulin) 18 unit subcut BREAKFAST Diabetes 02/17/21 acetaminophen 500 mg tablet 1,000 mg (2 x 500 mg) PO Q6H PRN PRN Pain Score 1-5 #0 tabs 05/14/21 insulin lispro 100 unit/mL subcutaneous pen 25 unit subcut LUNCH diabetes 05/30/21 amiodarone 200 mg tablet 100 mg PO DAILY hrt 11/12/21 lisinopril 10 mg tablet 40 mg PO DAILY bp 04/11/23 ofloxacin 0.3 % eye drops 1 drp ophthalmic (eye) Q6H eye 04/11/23 prednisolone acetate 1 % eye drops,suspension 1 drp ophthalmic (eye) BID eye 04/11/23 sodium chloride 5 % eye drops 1 drp ophthalmic (eye) BID eye 04/11/23 ascorbic acid (vitamin C) 500 mg tablet 500 mg PO BID 30 days #60 tabs 04/21/23 ferrous sulfate 325 mg (65 mg iron) tablet (FeroSul) 325 mg PO DAILY@1200 #30 tabs 04/21/23 rivaroxaban 10 mg tablet (Xarelto) 10 mg PO DINNER 30 days #30 tabs 04/21/23 aspirin 81 mg tablet,delayed release (Adult Aspirin Regimen) 81 mg PO DAILY 05/20/23 cefdinir 300 mg capsule 300 mg PO BID #10 caps 05/22/23 isosorbide mononitrate 30 mg tablet,extended release 24 hr 30 mg PO DAILY #60 tabs 05/22/23 Hospital Course Summary of Care Provided Minutes Spent on Discharge: 35 Physical Exam Narrative GENERAL: cooperative HEENT: Atraumatic; normocephalic EYES; Anicteric, Normal Conjunctiva NECK; supple, normal thyroid, RESPIRATORY: Diminished to auscultation CARDIOVASCULAR: Regular S1 S2, GI: soft, normoactive bowel sounds, : No Renal angle tenderness; EXTREMITIES: No edema, no clubbing, MUSCULOSKELETAL: no muscle wasting NEURO: Awake; no lateralizing signs. SKIN: No Rash PSYCH; Flat affect Weight / BMI Weight Weight: 126.3 kg Body Mass Index (BMI) 42.3 ABG / Lab / Microbiology Data 05/22/23 05:15 05/22/23 05:15 Laboratory: Laboratory Results - last 24 hr 05/21/23 12:26: POC Glucose 80 05/21/23 17:12: POC Glucose 187 H 05/21/23 20:48: POC Glucose 182 H 05/22/23 05:15: WBC 4.5, RBC 2.84 L, Hgb 8.0 L, Hct 27.3 L, MCV 96.1, MCH 28.2, MCHC 29.3 L, RDW Std Deviation 57.2 H, RDW Coeff of Kevyn 16.0 H, Plt Count 217, MPV 11.3, Immature Gran % (Auto) 0.200, Neut % (Auto) 67.5, Lymph % (Auto) 14.3 L, [place] % (Auto) 10.0, Eos % (Auto) 6.7 H, Baso % (Auto) 1.3 H, Absolute Neuts (auto) 3.0, Absolute Lymphs (auto) 0.64 L, Nucleated RBC % 0, Sodium 143, Potassium 3.7, Chloride 115 H, Carbon Dioxide 25.0, Anion Gap 3 L, BUN 33 H, Creatinine 1.47 H, Estim Creat Clear Calc 34.90, Est GFR (MDRD) Af Amer 45 L, Est GFR (MDRD) Non-Af 37 L, BUN/Creatinine Ratio 22.4 H, Glucose 126 H, Calcium 8.3 L, Phosphorus 3.6, Magnesium 2.2 05/22/23 06:12: POC Glucose 112 H Microbiology: Microbiology 05/20/23 16:30 Urine, Clean Catch Urine Culture - Final Klebsiella pneumoniae sp pneum D/C Instructions Discharge Diet: 1800 Calorie Control Diet Discharge Activity: Return to Normal Activity Call your doctor if you observe: Fever of 101 or Higher, Shortness of breath, Fainting spells and Chest pain Meaningful Use Info Meaningful Use Diagnoses (Choose all that apply): None applicable Discharge Plan Admission Admit Date/Time: 05/20/23 19:54 Attending Provider: Ramy Willett Primary Care Provider: Maggi Chicas Consulting Providers: Titus Nunn; Juanjose Tolbert Discharge Orders/Prescriptions Prescriptions: New isosorbide mononitrate 30 mg Tablet Extended Release 24 Hr 30 mg PO DAILY Qty: 60 0RF cefdinir 300 mg capsule 300 mg PO BID Qty: 10 0RF Continued atorvastatin 40 MG tablet 40 mg PO QHS Patient Comments: CHOLESTEROL LOWERING fenofibric acid (choline) [Trilipix] 135 MG capsule,delayed release(DR/EC) 135 mg PO DAILY Patient Comments: cholesterol levothyroxine 175 MCG tablet 200 mcg PO DAILY bumetanide 0.5 mg Tablet 1 mg PO DAILY insulin lispro [Humalog U-100 Insulin] 100 unit/mL Solution 18 unit SUBCUT BREAKFAST Toujeo SoloStar U-300 Insulin 300 unit/mL (1.5 mL) Insulin Pen 35 unit SUBCUT QHS acetaminophen 500 mg Tablet 1,000 mg PO Q6H PRN PRN (Reason: Pain Score 1-5) Qty: 0 0RF insulin lispro 100 unit/mL Insulin Pen 25 unit SUBCUT LUNCH amiodarone 200 mg tablet 100 mg PO DAILY Patient Comments: TAKE 1 TABLET DAILY lisinopril 10 mg tablet 40 mg PO DAILY Patient Comments: TAKE 1 TABLET DAILY prednisolone acetate 1 % drops,suspension 1 drp ophthalmic (eye) BID Patient Comments: Instill 1 drop in right eye(s) twice daily sodium chloride 5 % drops 1 drp ophthalmic (eye) BID Patient Comments: instill 1 (ONE) DROP IN THE RIGHT EYE TWICE DAILY ofloxacin 0.3 % drops 1 drp ophthalmic (eye) Q6H Patient Comments: APPLY 1 (ONE) DROP IN OPERATIVE EYE FOUR TIMES DAILY, START AFTER SURGERY ferrous sulfate [FeroSul] 325 mg (65 mg iron) Tablet 325 mg PO DAILY@1200 Qty: 30 2RF ascorbic acid (vitamin C) 500 mg tablet 500 mg PO BID 30 Days Qty: 60 2RF Xarelto 10 mg Tablet 10 mg PO DINNER 30 Days Qty: 30 0RF Rx Instructions: Discontinue if platelet count drops less than 50,000 or hemoglobin less than 7.0 g% aspirin [Adult Aspirin Regimen] 81 mg tablet,delayed release (DR/EC) 81 mg PO DAILY Referrals / Follow Up: Maggi Chicas DO [Primary Care Provider] - Disposition Disposition (needs filled in before D/C Order can be placed): Home, Self Care Charges/Coding Visit Charges Inpatient E&M: 56742 Disch Hosp >30min
[2023-05-22] MEDS: Insulin Lispro 100 UNIT/ML INSULN.PEN 10 UNIT SC (11:44)
[2023-05-22] MEDS: Ferrous Sulfate 325 MG Tablet PO (11:45)
[2023-05-22 12:07] LABS: Bedside Glucose 181 mg/dL (74-106)
[2023-05-22] MEDS: DAKIN'S SOL HALF STRENGTH (=0.25%) 1 APPLIC TOPICAL (13:39)
[2023-05-22 13:51] VITALS: BP 150/62; PULSE 58; RESP 18; TEMP 36.8; O2SAT 98
== END 2023-05-22 14:06 | disposition home or self-care (01) | DRG 641 ==
LOC: ED 20:12 → PCU 20:20
PROVIDERS: Admitting Provider Hospitalist; Emergency Provider Emergency Medicine; Visit Provider Internal Medicine
DX: E86.1 Hypovolemia (principal); N17.9 Acute kidney failure, unspecified; N30.00 Acute cystitis without hematuria; D63.8 Anemia in other chronic diseases classified elsewhere; E11.22 Type 2 diabetes mellitus with diabetic chronic kidney disease; D50.9 Iron deficiency anemia, unspecified; B96.1 Klebsiella pneumoniae [K. pneumoniae] as the cause of diseases classified elsewhere; N18.30 Chronic kidney disease, stage 3 unspecified; I48.0 Paroxysmal atrial fibrillation; E11.65 Type 2 diabetes mellitus with hyperglycemia; Z79.4 Long term (current) use of insulin; E03.9 Hypothyroidism, unspecified; I12.9 Hypertensive chronic kidney disease with stage 1 through stage 4 chronic kidney disease, or unspecified chronic kidney disease; E78.5 Hyperlipidemia, unspecified; G47.33 Obstructive sleep apnea (adult) (pediatric); I25.10 Atherosclerotic heart disease of native coronary artery without angina pectoris; R00.1 Bradycardia, unspecified; S80.01XD Contusion of right knee, subsequent encounter; Z87.891 Personal history of nicotine dependence; R53.81 Other malaise; Z79.890 Hormone replacement therapy; Z79.82 Long term (current) use of aspirin; Z79.01 Long term (current) use of anticoagulants; Z95.1 Presence of aortocoronary bypass graft; R07.9 Chest pain, unspecified
CPT/HCPCS: 11042; 11045; 36415; 71045; 80048; 81001; 82962; 83735; 84100; 84484; 85025; 85027; 87077; 87086; 87088; 87186; 93005; 97802; 99285; J7030; J7120; A4216

== ENCOUNTER → 2023-05-20 | Outpatient (CLI) | payer MEDICARE, SELFPAY ==
[2023-05-20 11:53] LABS: Hematocrit 29.2 % (37-47); Hemoglobin 8.8 g/dL (12.0-15.0); Mean Corp Hgb Conc 30.1 g/dL (32-36); Mean Corpuscular Hgb 28.2 pg (27.0-32.0); Mean Corpuscular Volume 93.6 fL (81-99); Mean Platelet Vol. 11.5 fl (6.2-12.0); Platelet Count 221 K/mm3 (150-450); RBC Distribution Width CV 15.9 % (11.6-14.6); RBC Distribution Width SD 54.6 fl (35.1-43.9); Red Blood Count 3.12 M/mm3 (4.2-5.4); White Blood Count 4.5 K/mm3 (4.4-11.0)
== END | disposition home or self-care (01) ==
LOC: LAB 09:18
DX: S81.001A Unspecified open wound, right knee, initial encounter (principal); S80.01XA Contusion of right knee, initial encounter
CPT/HCPCS: 36415; 85027

== ENCOUNTER 2023-05-24 13:30 | Outpatient (RCR) | payer MEDICARE, SELFPAY ==
[2023-04-27 00:43] VITALS: BP 194/71; PULSE 61; RESP 18; BMI 46.6
[2023-05-03 13:49] VITALS: BP 161/47; PULSE 67; RESP 20; TEMP 36.5; BMI 46.6
--- NOTE | 2023-05-03 16:37 | PCM.WC.PN ---
History of Present Illness Date of Service: 05/03/23 Chief Complaint: Open surgical hematoma wound right knee History of Wound: The patient is a 72 y/o woman with a history of diabetes, was admitted to the hospital with increasing redness and swelling and pain in her right knee after a mechanical fall. She is on anticoagulation and with the fall, she sustained a hematoma. When she initially came to the ED, she was given a script for Keflex and Bactrim. When she failed outpatient therapy with po antibiotics, she was admitted the next time she came to the ED. She was started on Vancomycin and Rocephin. Her WBC was 5.6. Hgb was 8.6. Her HgbA1c was 6.9 on 04/13/23. Dr. Gallegos from Orthopedics was consulted for this hematoma right knee. He proceeded with an I&D and evacuation of the hematoma. Wound care was started and a few days later he took her back to surgery to attempt closure of the wound. Her skin was thin and not very strong. He had difficulty with closure because the skin was tearing as there was too much tension from the swelling and from her obesity. So a VAC was applied and he consulted me to evaluate this patient for chronic wound care and for surgical options for wound closure. Today she denies fever. Her appetite is ok. Progress of Wound: Deeper wound is stable. Shallow wound extension with skin necrosis. Surrounding the wounds is a suction abrasion from placing the VAC directly on the skin. Objective Data Objective Data Vital Signs: Vital Signs Temp Pulse Resp BP 97.7 F L 67 20 H 161/47 H 05/03/23 13:49 05/03/23 13:49 05/03/23 13:49 05/03/23 13:49 Weight: 307 lb Body Mass Index (BMI) 46.6 Prealbumin was 12.5 on 04/20/23. Encourage nutritional supplementation with protein to help the healing process. Lab / Micro Data Attestation: I reviewed the patient's lab results. Lab results narrative: HgbA1c is 6.9 from 04/13/23. For elective surgeries such as a skin graft in the future, the HgbA1c needs to be less than 8. Charges/Coding Procedures Integumentary 10xxx: 78714 Fna bx w/us gdn 1st les 111xxx-113xx: 20485 Zita subq tissue 20 sq cm/< (ICD-10 - S81.001A, S80.01xA, E11.9, D63.8, Z79.01, E66.9, M79.89) Add On Codes: 34601 Zita subq tissue add-on (ICD-10 - S81.001A, S80.01xA, E11.9, D63.8, Z79.01, E66.9, M79.89) Debridement Note Debridement Note Wound debrided: #1 Right knee cluster. Laterality: Right Wound Grade/Stage: 2. Type of Debridement: Excisional debridement Anesthesia Used: 4% Lidocaine Solution Depth: Down to and including healthy tissue and in the subcutaneous layer (some necrotic skin present that was sharply debrided with scissors.) Percentage of wound debrided: 100 Instrument Used: 5mm curette Tissue Removed: subcutaneous tissue. Severity: Fat Layer Exposed Amount of bleeding with debridement: Mild Bleeding Controlled with: Pressure and Compression and gauze Patient tolerated procedure: Patient tolerated procedure well Post-Debridement Measurements and Additional Note: Post-Debridement Measurements/Treatment - Nurse 1 - General Ulcer Assessment Start: 05/03/23 13:48 Freq: Status: Active Protocol: AMBREEN.LOWEXShereen Activity Type Activity Date Activity User E-sign Co-sign Detail Recorded Client Recorded Date Recorded By Document 05/03/23 13:49 DL [id number] 05/03/23 14:00 DL 05/03/23 13:49 - Today's Visit Information Type of service Follow-up Visit (Physician/STAFF COUNSEL ) Arrival Mode Ambulatory, Walker Transfer Assistance None Patient Identification Verified (Name & Yes ) Patient Requires Transmission-Based No Precautions Safety Precautions NA Height and Weight Body Mass Index (BMI) 46.6 BMI Classification Obese Vital Signs Temperature (97.8 F-99.1 F) 97.7 F L Temperature Source Temporal Pulse Rate (60-100) 67 Pulse Location Monitor Respiratory Rate (12-18) 20 H Respiratory rate source Observation Blood Pressure (90/60-120/80) 161/47 H Blood Pressure Mean (mm Hg) 85 History Since Last Visit- (Skip if this is Patient's initial visit) Have you changed medications since your No last visit? Any new allergies or adverse reactions No Had a fall/change in ADL's that may No increase risk of falls Signs or symptoms of abuse and/or No neglect since last visit Have you been in the hospital since your No last visit? Has dressing in place as prescribed Yes Has compression in place as prescribed Yes Has offloadiing in place as prescribed N/A Experienced any changes in pain level or No management Pain Scale: 0-10 Numeric Is Patient Pain Free? Yes - Nurse 1 - General Ulcer Measurement Start: 05/03/23 13:48 Freq: Status: Active Protocol: Activity Type Activity Date Activity User E-sign Co-sign Detail Recorded Client Recorded Date Recorded By Document 05/03/23 13:49 [id number] 05/03/23 14:00 DL 05/03/23 13:49 Wound Center Nurse 1 #1- R LOWER KNEE CLUSTER (POST OP) -Current Size (cm) - Length 6 -Current Size (cm) - Width 5.6 -Current Size (cm) - Depth 1.3 -Total Square Cm 33.6 -Photo Taken Yes -Tunneling Position (O'clock) 10 -Tunneling Distance (cm) 0.6 -Exudate Amt Medium -Exudate Type Serosanguineous -Wound Margin Distinct, Outline Attached -Granulation Amt Small (1-33%) -Granulation Quality Red -Necrosis Amt Large (67-100%) -Necrotic Tissue Type Adherent Slough -Structure Exposed N/A -Texture (Miroslava-wound Skin Appearance) Localized Edema ,Scarring -Moisture (Miroslava-wound Skin Appearance) Dry/Scaly -Color (Miroslava-wound Skin Appearance) Erythema, Hemosiderin Staining -Temperature (Miroslava-wound Skin No Abnormality Appearance) (Pt Warm) -Ulcer Cleansing Soap and Water -Foul Odor after Cleansing No -Anesthetic Used 5% Lidocaine Gel Right Calf (cm) 56 Right Ankle (cm) 25.5 - Nurse 2 - General Ulcer CM Notes Start: 05/03/23 13:48 Freq: Status: Active Protocol: Activity Type Activity Date Activity User E-sign Co-sign Detail Recorded Client Recorded Date Recorded By Document 05/03/23 14:27 ALBERT [id number] 05/03/23 14:35 ALBERT 05/03/23 14:27 Wound Center Nurse 2 2-right medial knee ulcer -Time 14:31 -Correct Patient Yes -Correct Side, Site, Position Yes -Correct Procedure Yes -Procedure Performed Yes -Type of Procedure Debridement -Clinical Debridement Subcutaneous -Tissue Removed Subcutaneous -Post Debridement (cm) - Length 1.0 -Post Debridement (cm) - Width 1.5 -Post Debridement (cm) - Depth 0.5 -Total Square (Post) (cm) 1.50 -Area of Debridement (cm) - Length 1.0 -Area of Debridement (cm) - Width 1.5 -Total Square (Area) (cm) 1.50 -Tunneling No -Undermining/Tunneling No -Circular Undermining No -Wound/Ulcer Outcome Not Healed -Ulcer Cleansing Rinsed/ Irrigated with Saline -Foul Odor after Cleansing No -Bioengineered Tissue No -Bleeding Controlled with Pressure -Treatment Response Procedure Tolerated Well -Offloading No -Debridement - Subq, 1st 20sq cm No #1- R LOWER KNEE CLUSTER (POST OP) -Time 14:31 -Correct Patient Yes -Correct Side, Site, Position Yes -Correct Procedure Yes -Procedure Performed Yes -Type of Procedure Debridement -Clinical Debridement Subcutaneous -Tissue Removed Subcutaneous -Post Debridement (cm) - Length 7.5 -Post Debridement (cm) - Width 2.6 -Post Debridement (cm) - Depth 1.0 -Total Square (Post) (cm) 19.50 -Area of Debridement (cm) - Length 7.5 -Area of Debridement (cm) - Width 2.6 -Total Square (Area) (cm) 19.50 -Tunneling No -Undermining/Tunneling No -Circular Undermining No -Wound/Ulcer Outcome Not Healed -Ulcer Cleansing Rinsed/ Irrigated with Saline -Foul Odor after Cleansing No -Bioengineered Tissue No -Bleeding Controlled with Pressure -Treatment Response Procedure Tolerated Well -Offloading No -Debridement - Subq, 1st 20sq cm Yes -Debridement, SubQ, ea addt'l 20sq cm 1 or part thereof Pain Scale: 0-10 Numeric Is Patient Pain Free? 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 Yes WC - Visit Discharge Discharge Condition Stable Ambulatory Status Ambulatory Transportation Private [facility] Facility Type Home Health Assessment/Plan Assessment/Plan (1) Open wound of right knee with complication: CODE(S): S81.001A - Unspecified open wound, right knee, initial encounter QUALIFIERS: Encounter type: subsequent encounter Qualified Code(s): S81.001D - Unspecified open wound, right knee, subsequent encounter (2) Hematoma of right knee region: CODE(S): S80.01XA - Contusion of right knee, initial encounter (3) DM type 2, goal HbA1c < 7%: CODE(S): E11.9 - Type 2 diabetes mellitus without complications PLAN: HgbA1c is 6.9 on 04/13/23. 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 Begin Dakin's dressing changes daily. Operative cultures were negative. She was treated with IV antibiotics initially and was changed to Keflex at discharge and has finished them. Prealbumin was 12.5 on 04/20/23. Continue nutritional supplementation with protein to help the healing process. Patient is obese and has moderate swelling that can be problematic as it will slow down healing. Applied a 4 inch mc from the toes to the proximal leg at the edge of where the swelling starts. Then a 6 inch mc was applied to go above the knee, about mid thigh where the swelling ends. Hgb was 7.1 at discharge. She was discharged on Iron supplementation. Hgb from 04/28/23 was 9.0. If there is a plateau during the healing process which is likely secondary to the swelling at this time. Can always proceed with delayed closure with skin grafting. Before surgery, may try an advanced skin substitute graft.
[2023-05-10 15:01] VITALS: BP 150/60; RESP 18; TEMP 36.6; BMI 46.6
--- NOTE | 2023-05-10 16:26 | PCM.WC.PN ---
History of Present Illness Date of Service: 05/10/23 Chief Complaint: Open surgical hematoma wound right knee History of Wound: The patient is a 72 y/o woman with a history of diabetes, was admitted to the hospital with increasing redness and swelling and pain in her right knee after a mechanical fall. She is on anticoagulation and with the fall, she sustained a hematoma. When she initially came to the ED, she was given a script for Keflex and Bactrim. When she failed outpatient therapy with po antibiotics, she was admitted the next time she came to the ED. She was started on Vancomycin and Rocephin. Her WBC was 5.6. Hgb was 8.6. Her HgbA1c was 6.9 on 04/13/23. Dr. Gallegos from Orthopedics was consulted for this hematoma right knee. He proceeded with an I&D and evacuation of the hematoma. Wound care was started and a few days later he took her back to surgery to attempt closure of the wound. Her skin was thin and not very strong. He had difficulty with closure because the skin was tearing as there was too much tension from the swelling and from her obesity. So a VAC was applied and he consulted me to evaluate this patient for chronic wound care and for surgical options for wound closure. She is currently on a Dakin's dressing changes as she is on a VAC holiday. Today she denies fever. Her appetite is ok. Progress of Wound: Wounds are stable. The suction abrasion surrounding the wound has improved with the VAC holiday. Objective Data Objective Data Vital Signs: Vital Signs Temp Pulse Resp BP 98 F 67 18 150/60 H 05/10/23 15:01 05/03/23 13:49 05/10/23 15:01 05/10/23 15:01 Weight: 307 lb Body Mass Index (BMI) 46.6 Prealbumin was 12.5 on 04/20/23. Encourage nutritional supplementation with protein to help the healing process. Lab / Micro Data Attestation: I reviewed the patient's lab results. Lab results narrative: HgbA1c is 6.9 from 04/13/23. For elective surgeries such as a skin graft in the future, the HgbA1c needs to be less than 8. Charges/Coding Procedures Integumentary 111xxx-113xx: 60890 Zita subq tissue 20 sq cm/< (ICD-10 - S81.001A, S80.01xA, E11.9, D63.8, Z79.01, E66.9, M79.89) Add On Codes: 74071 Zita subq tissue add-on (ICD-10 - S81.001A, S80.01xA, E11.9, D63.8, Z79.01, E66.9, M79.89) Debridement Note Debridement Note Wound debrided: #1 Right knee cluster. Laterality: Right Wound Grade/Stage: 2. Type of Debridement: Excisional debridement Anesthesia Used: 4% Lidocaine Solution Depth: Down to and including healthy tissue and in the subcutaneous layer Percentage of wound debrided: 100 Instrument Used: 5mm curette (Also scissors used.) Tissue Removed: subcutaneous tissue. Severity: Fat Layer Exposed Amount of bleeding with debridement: Mild Bleeding Controlled with: Pressure and Compression and gauze Patient tolerated procedure: Patient tolerated procedure well Post-Debridement Measurements and Additional Note: Post-Debridement Measurements/Treatment WC - Nurse 1 - General Ulcer Assessment Start: 05/03/23 13:48 Freq: Status: Active Protocol: USHA Activity Type Activity Date Activity User E-sign Co-sign Detail Recorded Client Recorded Date Recorded By Document 05/03/23 13:49 DL [id number] 05/03/23 14:00 DL Document 05/10/23 15:01 PL [id number] 05/10/23 15:16 PL 05/03/23 05/10/23 13:49 15:01 WC - Today's Visit Information Type of service Follow-up Visit Follow-up Visit (Physician/WARP HAULER (Physician/WARP HAULER ) ) Arrival Mode Ambulatory, Ambulatory, Walker Walker Transfer Assistance None None Patient Identification Verified (Name & Yes Yes ) Patient Requires Transmission-Based No No Precautions Safety Precautions NA NA Height and Weight Body Mass Index (BMI) 46.6 46.6 BMI Classification Obese Obese Vital Signs Temperature (97.8 F-99.1 F) 97.7 F L 98 F Temperature Source Temporal Temporal Pulse Rate (60-100) 67 Pulse Location Monitor Respiratory Rate (12-18) 20 H 18 Respiratory rate source Observation Blood Pressure (90/60-120/80) 161/47 H 150/60 H Blood Pressure Mean (mm Hg) 85 90 History Since Last Visit- (Skip if this is Patient's initial visit) Have you changed medications since your No No last visit? Any new allergies or adverse reactions No No Had a fall/change in ADL's that may No No increase risk of falls Signs or symptoms of abuse and/or No No neglect since last visit Have you been in the hospital since your No No last visit? Has dressing in place as prescribed Yes Yes Has compression in place as prescribed Yes Yes Has offloadiing in place as prescribed N/A N/A Experienced any changes in pain level or No No management Pain Scale: 0-10 Numeric Is Patient Pain Free? Yes Yes AMBREEN - Nurse 1 - General Ulcer Measurement Start: 05/03/23 13:48 Freq: Status: Active Protocol: Activity Type Activity Date Activity User E-sign Co-sign Detail Recorded Client Recorded Date Recorded By Document 05/03/23 13:49 DL [id number] 05/03/23 14:00 DL 05/03/23 13:49 Wound Center Nurse 1 #1- R mid LOWER KNEE -Current Size (cm) - Length 6 -Current Size (cm) - Width 5.6 -Current Size (cm) - Depth 1.3 -Total Square Cm 33.6 -Photo Taken Yes -Tunneling Position (O'clock) 10 -Tunneling Distance (cm) 0.6 -Exudate Amt Medium -Exudate Type Serosanguineous -Wound Margin Distinct, Outline Attached -Granulation Amt Small (1-33%) -Granulation Quality Red -Necrosis Amt Large (67-100%) -Necrotic Tissue Type Adherent Slough -Structure Exposed N/A -Texture (Miroslava-wound Skin Appearance) Localized Edema ,Scarring -Moisture (Miroslava-wound Skin Appearance) Dry/Scaly -Color (Miroslava-wound Skin Appearance) Erythema, Hemosiderin Staining -Temperature (Miroslava-wound Skin No Abnormality Appearance) (Pt Warm) -Ulcer Cleansing Soap and Water -Foul Odor after Cleansing No -Anesthetic Used 5% Lidocaine Gel Right Calf (cm) 56 Right Ankle (cm) 25.5 WC - Nurse 2 - General Ulcer CM Notes Start: 05/03/23 13:48 Freq: Status: Active Protocol: Activity Type Activity Date Activity User E-sign Co-sign Detail Recorded Client Recorded Date Recorded By Document 05/03/23 14:27 ALBERT [id number] 05/03/23 14:35 Document 05/10/23 15:33 [id number] 05/10/23 15:40 05/03/23 05/10/23 14:27 15:33 Wound Center Nurse 2 2-right medial knee ulcer -Time 14:31 15:34 -Correct Patient Yes Yes -Correct Side, Site, Position Yes Yes -Correct Procedure Yes Yes -Procedure Performed Yes Yes -Type of Procedure Debridement Debridement -Clinical Debridement Subcutaneous Subcutaneous -Tissue Removed Subcutaneous Subcutaneous -Post Debridement (cm) - Length 1.0 1.7 -Post Debridement (cm) - Width 1.5 1.9 -Post Debridement (cm) - Depth 0.5 0.8 -Total Square (Post) (cm) 1.50 3.23 -Area of Debridement (cm) - Length 1.0 1.7 -Area of Debridement (cm) - Width 1.5 1.9 -Total Square (Area) (cm) 1.50 3.23 -Tunneling No No -Undermining/Tunneling No No -Circular Undermining No No -Wound/Ulcer Outcome Not Healed Not Healed -Ulcer Cleansing Rinsed/ Rinsed/ Irrigated with Irrigated with Saline Saline -Foul Odor after Cleansing No No -Bioengineered Tissue No No -Bleeding Controlled with Pressure Pressure -Treatment Response Procedure Procedure Tolerated Well Tolerated Well -Offloading No No -Debridement - Subq, 1st 20sq cm No No #1- R mid LOWER KNEE -Time 14: 15:36 -Correct Patient Yes Yes -Correct Side, Site, Position Yes Yes -Correct Procedure Yes Yes -Procedure Performed Yes Yes -Type of Procedure Debridement Debridement -Clinical Debridement Subcutaneous Subcutaneous -Tissue Removed Subcutaneous Subcutaneous -Post Debridement (cm) - Length 7.5 7.5 -Post Debridement (cm) - Width 2.6 3.0 -Post Debridement (cm) - Depth 1.0 1.2 -Total Square (Post) (cm) 19.50 22.50 -Area of Debridement (cm) - Length 7.5 7.5 -Area of Debridement (cm) - Width 2.6 3.0 -Total Square (Area) (cm) 19.50 22.50 -Tunneling No No -Undermining/Tunneling No No -Circular Undermining No No -Wound/Ulcer Outcome Not Healed Not Healed -Ulcer Cleansing Rinsed/ Rinsed/ Irrigated with Irrigated with Saline Saline -Foul Odor after Cleansing No No -Bioengineered Tissue No No -Bleeding Controlled with Pressure Pressure -Treatment Response Procedure Procedure Tolerated Well Tolerated Well -Offloading No No -Debridement - Subq, 1st 20sq cm Yes Yes -Debridement, SubQ, ea addt'l 20sq cm 1 1 or part thereof Pain Scale: 0-10 Numeric Is Patient Pain Free? Yes Yes - Nurse 3 - General Ulcer D/C NN Start: 05/03/23 13:48 Freq: Status: Active Protocol: Activity Type Activity Date Activity User E-sign Co-sign Detail Recorded Client Recorded Date Recorded By Document 05/03/23 14:43 [facility] [id number] 05/03/23 14:46 [facility] Document 05/10/23 16:03 [facility] [id number] 05/10/23 16:04 [facility] 05/03/23 05/10/23 14:43 16:03 Wound Care Center Nurse 3 2-right medial knee ulcer -Ulcer Cleansing Soap and Water Rinsed/ Irrigated with Saline -Foul Odor after Cleansing No No -Other Dressing DAKINS MOIST dakins moist GAUZE; DRSG PER gauze DL ICE RINK ATTENDANT -Primary Dressing Covered/Secured with Dry Gauze & Dry Gauze & Roll Gauze, Roll Gauze, Secured with Secured with Tape Tape -Other Covering ABD abd #1- R mid LOWER KNEE -Ulcer Cleansing Rinsed/ Rinsed/ Irrigated with Irrigated with Saline Saline -Foul Odor after Cleansing No No -Other Dressing DAKINS MOIST dakins moist GAUZE PER DL gauze ICE RINK ATTENDANT -Primary Dressing Covered/Secured with Dry Gauze & Dry Gauze & Roll Gauze, Roll Gauze, Secured with Secured with Tape Tape -Other Covering ABD abd Right -Compression Wrap Mc Wrap Mc Wrap Treatment Response Procedure Procedure Tolerated Well Tolerated Well Pain Scale: 0-10 Numeric Is Patient Pain Free? Yes Yes - Visit Discharge Discharge Condition Stable Stable Ambulatory Status Ambulatory Ambulatory, Walker Transportation Private Auto Private Auto Facility Type Home Health Assessment/Plan Assessment/Plan (1) Open wound of right knee with complication: CODE(S): S81.001A - Unspecified open wound, right knee, initial encounter QUALIFIERS: Encounter type: subsequent encounter Qualified Code(s): S81.001D - Unspecified open wound, right knee, subsequent encounter (2) Hematoma of right knee region: CODE(S): S80.01XA - Contusion of right knee, initial encounter (3) DM type 2, goal HbA1c < 7%: CODE(S): E11.9 - Type 2 diabetes mellitus without complications PLAN: HgbA1c is 6.9 on 04/13/23. 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 Continue Dakin's dressing changes daily. Operative cultures were negative. She was treated with IV antibiotics initially and was changed to Keflex at discharge and has finished them. Prealbumin was 12.5 on 04/20/23. Continue nutritional supplementation with protein to help the healing process. Patient is obese and has moderate swelling that can be problematic as it will slow down healing. Applied a 4 inch mc from the toes to the proximal leg at the edge of where the swelling starts. Then a 6 inch mc was applied to go above the knee, about mid thigh where the swelling ends. Hgb was 7.1 at discharge. She was discharged on Iron supplementation. Hgb from 04/28/23 was 9.0. If there is a plateau during the healing process which is likely secondary to the swelling at this time. Can always proceed with delayed closure with skin grafting. Before surgery, may try an advanced skin substitute graft. Followup one week.
[2023-05-17 13:48] VITALS: BP 183/54; PULSE 72; RESP 22; TEMP 36.4; BMI 46.6
--- NOTE | 2023-05-17 16:12 | PCM.WC.PN ---
History of Present Illness Date of Service: 05/17/23 Chief Complaint: Open surgical hematoma wound right knee History of Wound: The patient is a 72 y/o woman with a history of diabetes, was admitted to the hospital with increasing redness and swelling and pain in her right knee after a mechanical fall. She is on anticoagulation and with the fall, she sustained a hematoma. When she initially came to the ED, she was given a script for Keflex and Bactrim. When she failed outpatient therapy with po antibiotics, she was admitted the next time she came to the ED. She was started on Vancomycin and Rocephin. Her WBC was 5.6. Hgb was 8.6. Her HgbA1c was 6.9 on 04/13/23. Dr. Gallegos from Orthopedics was consulted for this hematoma right knee. He proceeded with an I&D and evacuation of the hematoma. Wound care was started and a few days later he took her back to surgery to attempt closure of the wound. Her skin was thin and not very strong. He had difficulty with closure because the skin was tearing as there was too much tension from the swelling and from her obesity. So a VAC was applied and he consulted me to evaluate this patient for chronic wound care and for surgical options for wound closure. She is currently doing Dakin's dressing changes as she is on a VAC holiday. Today she denies fever. Her appetite is ok. Progress of Wound: Wounds are stable. The suction abrasion surrounding the wounds have resolved. Objective Data Objective Data Vital Signs: Vital Signs Temp Pulse Resp BP 97.5 F L 72 22 H 183/54 H 05/17/23 13:48 05/17/23 13:48 05/17/23 13:48 05/17/23 13:48 Weight: 307 lb Body Mass Index (BMI) 46.6 Prealbumin was 12.5 on 04/20/23. Encourage nutritional supplementation with protein to help the healing process. Lab / Micro Data Attestation: I reviewed the patient's lab results. Lab results narrative: HgbA1c is 6.9 from 04/13/23. For elective surgeries such as a skin graft in the future, the HgbA1c needs to be less than 8. Charges/Coding Procedures Integumentary 111xxx-113xx: 28174 Zita subq tissue 20 sq cm/< (ICD-10 - S81.001A, S80.01xA, E11.9, D63.8, Z79.01, E66.9, M79.89) Add On Codes: 07137 Zita subq tissue add-on (ICD-10 - S81.001A, S80.01xA, E11.9, D63.8, Z79.01, E66.9, M79.89) Debridement Note Debridement Note Wound debrided: #1 Right knee cluster. Laterality: Right Wound Grade/Stage: 2. Type of Debridement: Excisional debridement Anesthesia Used: 4% Lidocaine Solution Depth: Down to and including healthy tissue and in the subcutaneous layer Percentage of wound debrided: 100 Instrument Used: 3mm curette Tissue Removed: subcutaneous tissue. Severity: Fat Layer Exposed Amount of bleeding with debridement: Mild Bleeding Controlled with: Pressure and Compression and gauze Patient tolerated procedure: Patient tolerated procedure well Post-Debridement Measurements and Additional Note: Post-Debridement Measurements/Treatment - Nurse 1 - General Ulcer Assessment Start: 05/03/23 13:48 Freq: Status: Active Protocol: USHA Activity Type Activity Date Activity User E-sign Co-sign Detail Recorded Client Recorded Date Recorded By Document 05/03/23 13:49 DL [id number] 05/03/23 14:00 DL Document 05/10/23 15:01 PL [id number] 05/10/23 15:16 PL Document 05/17/23 13:48 DL [id number] 05/17/23 13:57 DL 05/03/23 05/10/23 05/17/23 13:49 15:01 13:48 - Today's Visit Information Type of service Follow-up Visit Follow-up Visit Follow-up Visit (Physician/DRY DRUG WORKER (Physician/DRY DRUG WORKER (Physician/DRY DRUG WORKER ) ) ) Arrival Mode Ambulatory, Ambulatory, Ambulatory, Walker Walker Walker Transfer Assistance None None Transfer Board Patient Identification Verified (Name & Yes Yes Yes ) Patient Requires Transmission-Based No No No Precautions Safety Precautions NA NA Finger Stick Blood Sugar(mg/dl) (if 240 indicated): Blood Sugar Stated by Patient Height and Weight Body Mass Index (BMI) 46.6 46.6 46.6 BMI Classification Obese Obese Obese Vital Signs Temperature (97.8 F-99.1 F) 97.7 F L 98 F 97.5 F L Temperature Source Temporal Temporal Temporal Pulse Rate (60-100) 67 72 Pulse Location Monitor Monitor Respiratory Rate (12-18) 20 H 18 22 H Respiratory rate source Observation Observation Blood Pressure (90/60-120/80) 161/47 H 150/60 H 183/54 H Blood Pressure Mean (mm Hg) 85 90 97 Source Monitor History Since Last Visit- (Skip if this is Patient's initial visit) Have you changed medications since your No No No last visit? Any new allergies or adverse reactions No No No Had a fall/change in ADL's that may No No No increase risk of falls Signs or symptoms of abuse and/or No No No neglect since last visit Have you been in the hospital since your No No No last visit? Has dressing in place as prescribed Yes Yes Yes Has compression in place as prescribed Yes Yes Yes Has offloadiing in place as prescribed N/A N/A N/A Experienced any changes in pain level or No No No management Pain Scale: 0-10 Numeric Is Patient Pain Free? Yes Yes Yes WC - Nurse 1 - General Ulcer Measurement Start: 05/03/23 13:48 Freq: Status: Active Protocol: Activity Type Activity Date Activity User E-sign Co-sign Detail Recorded Client Recorded Date Recorded By Document 05/03/23 13:49 DL [id number] 05/03/23 14:00 DL Document 05/17/23 13:48 DL [id number] 05/17/23 13:57 DL 05/03/23 05/17/23 13:49 13:48 Wound Center Nurse 1 2-right medial knee ulcer -Current Size (cm) - Length 1.9 -Current Size (cm) - Width 2.5 -Current Size (cm) - Depth 0.5 -Total Square Cm 4.75 -Undermining/Tunneling Starts (O'clock 4 ) -Undermining/Tunneling Ends (O'clock) 7 -Maximum Distance (cm) 0.5 -Exudate Amt Medium -Exudate Type Serosanguineous -Wound Margin Distinct, Outline Attached -Granulation Amt Medium (34-66%) -Granulation Quality Red -Necrosis Amt Medium (34-66%) -Necrotic Tissue Type Adherent Slough -Structure Exposed N/A -Texture (Miroslava-wound Skin Appearance) Localized Edema ,Scarring -Moisture (Miroslava-wound Skin Appearance) No Abnormality -Color (Miroslava-wound Skin Appearance) Erythema -Temperature (Miroslava-wound Skin No Abnormality Appearance) (Pt Warm) -Tenderness on Palpation (Miroslava-wound No Skin Appearance) -Ulcer Cleansing Soap and Water -Foul Odor after Cleansing No #1- R mid LOWER KNEE -Current Size (cm) - Length 6 6.5 -Current Size (cm) - Width 5.6 2.5 -Current Size (cm) - Depth 1.3 0.9 -Total Square Cm 33.6 16.25 -Photo Taken Yes -Tunneling Position (O'clock) 10 -Tunneling Distance (cm) 0.6 -Exudate Amt Medium Medium -Exudate Type Serosanguineous Serosanguineous -Wound Margin Distinct, Distinct, Outline Outline Attached Attached -Granulation Amt Small (1-33%) Medium (34-66%) -Granulation Quality Red Red -Necrosis Amt Large (67-100%) Medium (34-66%) -Necrotic Tissue Type Adherent Slough Adherent Slough -Structure Exposed N/A N/A -Texture (Miroslava-wound Skin Appearance) Localized Edema Localized Edema ,Scarring ,Scarring -Moisture (Miroslava-wound Skin Appearance) Dry/Scaly Dry/Scaly -Color (Miroslava-wound Skin Appearance) Erythema, Erythema Hemosiderin Staining -Temperature (Miroslava-wound Skin No Abnormality No Abnormality Appearance) (Pt Warm) (Pt Warm) -Ulcer Cleansing Soap and Water Soap and Water -Foul Odor after Cleansing No No -Anesthetic Used 5% Lidocaine 5% Lidocaine Gel Gel Right Calf (cm) 56 Right Ankle (cm) 25.5 WC - Nurse 2 - General Ulcer CM Notes Start: 05/03/23 13:48 Freq: Status: Active Protocol: Activity Type Activity Date Activity User E-sign Co-sign Detail Recorded Client Recorded Date Recorded By Document 05/03/23 14:27 [id number] 05/03/23 14:35 Document 05/10/23 15:33 [id number] 05/10/23 15:40 Document 05/17/23 14:34 [id number] 05/17/23 14:37 08/07/23 08/14/23 08/21/23 14:27 15:33 14:34 Wound Center Nurse 2 2-right medial knee ulcer -Time 14:31 15:34 14:34 -Correct Patient Yes Yes Yes -Correct Side, Site, Position Yes Yes Yes -Correct Procedure Yes Yes Yes -Procedure Performed Yes Yes Yes -Type of Procedure Debridement Debridement Debridement -Clinical Debridement Subcutaneous Subcutaneous Subcutaneous -Tissue Removed Subcutaneous Subcutaneous Subcutaneous -Post Debridement (cm) - Length 1.0 1.7 1.7 -Post Debridement (cm) - Width 1.5 1.9 1.8 -Post Debridement (cm) - Depth 0.5 0.8 1.1 -Total Square (Post) (cm) 1.50 3.23 3.06 -Area of Debridement (cm) - Length 1.0 1.7 1.7 -Area of Debridement (cm) - Width 1.5 1.9 1.8 -Total Square (Area) (cm) 1.50 3.23 3.06 -Tunneling No No No -Undermining/Tunneling No No No -Circular Undermining No No No -Wound/Ulcer Outcome Not Healed Not Healed Not Healed -Ulcer Cleansing Rinsed/ Rinsed/ Rinsed/ Irrigated with Irrigated with Irrigated with Saline Saline Saline -Foul Odor after Cleansing No No No -Bioengineered Tissue No No No -Bleeding Controlled with Pressure Pressure Pressure -Treatment Response Procedure Procedure Procedure Tolerated Well Tolerated Well Tolerated Well -Offloading No No No -Debridement - Subq, 1st 20sq cm No No No #1- R mid LOWER KNEE -Time 14: 15:36 14:34 -Correct Patient Yes Yes Yes -Correct Side, Site, Position Yes Yes Yes -Correct Procedure Yes Yes Yes -Procedure Performed Yes Yes Yes -Type of Procedure Debridement Debridement Debridement -Clinical Debridement Subcutaneous Subcutaneous Subcutaneous -Tissue Removed Subcutaneous Subcutaneous Subcutaneous -Post Debridement (cm) - Length 7.5 7.5 7.0 -Post Debridement (cm) - Width 2.6 3.0 2.5 -Post Debridement (cm) - Depth 1.0 1.2 1.0 -Total Square (Post) (cm) 19.50 22.50 17.50 -Area of Debridement (cm) - Length 7.5 7.5 7.0 -Area of Debridement (cm) - Width 2.6 3.0 2.5 -Total Square (Area) (cm) 19.50 22.50 17.50 -Tunneling No No No -Undermining/Tunneling No No No -Circular Undermining No No No -Wound/Ulcer Outcome Not Healed Not Healed Not Healed -Ulcer Cleansing Rinsed/ Rinsed/ Rinsed/ Irrigated with Irrigated with Irrigated with Saline Saline Saline -Foul Odor after Cleansing No No No -Bioengineered Tissue No No No -Bleeding Controlled with Pressure Pressure Pressure -Treatment Response Procedure Procedure Procedure Tolerated Well Tolerated Well Tolerated Well -Offloading No No No -Debridement - Subq, 1st 20sq cm Yes Yes Yes -Debridement, SubQ, ea addt'l 20sq cm 1 1 1 or part thereof Pain Scale: 0-10 Numeric Is Patient Pain Free? Yes Yes Yes WC - Nurse 3 - General Ulcer D/C NN Start: 05/03/23 13:48 Freq: Status: Active Protocol: Activity Type Activity Date Activity User E-sign Co-sign Detail Recorded Client Recorded Date Recorded By Document 05/03/23 14:43 [facility] [id number] 05/03/23 14:46 [facility] Document 05/10/23 16:03 [facility] [id number] 05/10/23 16:04 [facility] Document 05/17/23 15:16 PL [id number] 05/17/23 15:18 PL 05/03/23 05/10/23 05/17/23 14:43 16:03 15:16 Wound Care Center Nurse 3 2-right medial knee ulcer -Ulcer Cleansing Soap and Water Rinsed/ Rinsed/ Irrigated with Irrigated with Saline Saline -Foul Odor after Cleansing No No -Other Dressing DAKINS MOIST dakins moist Dakins solution GAUZE; DRSG PER gauze ,ABD,Kerlix DL BRAKE REPAIRER -Primary Dressing Covered/Secured with Dry Gauze & Dry Gauze & Secured with Roll Gauze, Roll Gauze, Tape Secured with Secured with Tape Tape -Other Covering ABD abd #1- R mid LOWER KNEE -Ulcer Cleansing Rinsed/ Rinsed/ Rinsed/ Irrigated with Irrigated with Irrigated with Saline Saline Saline -Foul Odor after Cleansing No No -Other Dressing DAKINS MOIST dakins moist Dakins solution GAUZE PER DL gauze ,ABD,kerlix BRAKE REPAIRER -Primary Dressing Covered/Secured with Dry Gauze & Dry Gauze & Secured with Roll Gauze, Roll Gauze, Tape Secured with Secured with Tape Tape -Other Covering ABD abd Right -Compression Wrap Mc Wrap Mc Wrap -Other 6 mc wrap Treatment Response Procedure Procedure Tolerated Well Tolerated Well Pain Scale: 0-10 Numeric Is Patient Pain Free? Yes Yes Yes WC - Visit Discharge Discharge Condition Stable Stable Stable Ambulatory Status Ambulatory Ambulatory, Ambulatory, Walker Walker Transportation Private Auto Private Auto Private Auto Facility Type Home Health Assessment/Plan Assessment/Plan (1) Open wound of right knee with complication: CODE(S): S81.001A - Unspecified open wound, right knee, initial encounter QUALIFIERS: Encounter type: subsequent encounter Qualified Code(s): S81.001D - Unspecified open wound, right knee, subsequent encounter (2) Hematoma of right knee region: CODE(S): S80.01XA - Contusion of right knee, initial encounter (3) DM type 2, goal HbA1c < 7%: CODE(S): E11.9 - Type 2 diabetes mellitus without complications PLAN: HgbA1c is 6.9 on 04/13/23. (4) Anemia of chronic disease: CODE(S): D63.8 - Anemia in other chronic diseases classified elsewhere (5) Anticoagulant long-term use: CODE(S): Z79.01 - [facility] (current) use of anticoagulants (6) On rivaroxaban therapy: CODE(S): Z79.01 - [facility] (current) use of anticoagulants (7) Obesity: CODE(S): E66.9 - Obesity, unspecified (8) Leg swelling: CODE(S): M79.89 - Other specified soft tissue disorders PLAN: Plan Stop the VAC and continue Dakin's dressing changes daily. Operative cultures were negative. She was treated with IV antibiotics initially and was changed to Keflex at discharge and has finished them. Prealbumin was 12.5 on 04/20/23. Continue nutritional supplementation with protein to help the healing process. Patient is obese and has moderate swelling that can be problematic as it will slow down healing. Continue mc wrap for compression. Hgb was 7.1 at discharge. She was discharged on Iron supplementation. Hgb from 04/28/23 was 9.0. If there is a plateau during the healing process which is likely secondary to the swelling at this time. Can always proceed with delayed closure with skin grafting. Before surgery, may try an advanced skin substitute graft. We discussed advanced skin substitute grafts, and she states she is interested. Followup one week.
[2023-05-24 13:27] VITALS: BP 187/64; PULSE 63; RESP 20; TEMP 35.9; BMI 46.6
--- NOTE | 2023-05-24 16:13 | PN.PCM_ITS ---
History of Present Illness Date of Service: 05/24/23 Chief Complaint: Open surgical hematoma wound right knee History of Wound: The patient is a 72 y/o woman with a history of diabetes, was admitted to the hospital with increasing redness and swelling and pain in her right knee after a mechanical fall. She is on anticoagulation and with the fall, she sustained a hematoma. When she initially came to the ED, she was given a script for Keflex and Bactrim. When she failed outpatient therapy with po antibiotics, she was admitted the next time she came to the ED. She was started on Vancomycin and Rocephin. Her WBC was 5.6. Hgb was 8.6. Her HgbA1c was 6.9 on 04/13/23. Dr. Gallegos from Orthopedics was consulted for this hematoma right knee. He proceeded with an I&D and evacuation of the hematoma. Wound care was started and a few days later he took her back to surgery to attempt closure of the wound. Her skin was thin and not very strong. He had difficulty with closure because the skin was tearing as there was too much tension from the swelling and from her obesity. So a VAC was applied and he consulted me to evaluate this patient for chronic wound care and for surgical options for wound closure. She is currently doing Dakin's dressing changes as she has cancelled the VAC because of too much suction irritation on the surrounding skin. Today she denies fever. Her appetite is ok. Progress of Wound: Slowly improving Objective Data Objective Data Vital Signs: Vital Signs Temp Pulse Resp BP 96.6 F L 63 20 H 187/64 H 05/24/23 13:27 05/24/23 13:27 05/24/23 13:27 05/24/23 13:27 Weight: 307 lb Body Mass Index (BMI) 46.6 Prealbumin was 12.5 on 04/20/23. Encourage nutritional supplementation with protein to help the healing process. Lab / Micro Data Attestation: I reviewed the patient's lab results. Lab results narrative: HgbA1c is 6.9 from 04/13/23. For elective surgeries such as a skin graft in the future, the HgbA1c needs to be less than 8. Charges/Coding Procedures Integumentary 111xxx-113xx: [id number] Zita subq tissue 20 sq cm/< (ICD-10 - S81.001A, S80.01xA, E11.9, D63.8, Z79.01, E66.9, M79.89) Debridement Note Debridement Note Wound debrided: #1 Right knee cluster. Laterality: Right Wound Grade/Stage: 2. Type of Debridement: Excisional debridement Anesthesia Used: 4% Lidocaine Solution Depth: Down to and including healthy tissue and in the subcutaneous layer Percentage of wound debrided: 100 Instrument Used: 3mm curette Tissue Removed: subcutaneous tissue. Severity: Fat Layer Exposed Amount of bleeding with debridement: Mild Bleeding Controlled with: Pressure and Compression and gauze Patient tolerated procedure: Patient tolerated procedure well Post-Debridement Measurements and Additional Note: Post-Debridement Measurements/Treatment - Nurse 1 - General Ulcer Assessment Start: 05/03/23 13:48 Freq: Status: Active Protocol: USHA Activity Type Activity Date Activity User E-sign Co-sign Detail Recorded Client Recorded Date Recorded By Document 05/03/23 13:49 DL [id number] 05/03/23 14:00 DL Document 05/10/23 15:01 PL [id number] 05/10/23 15:16 PL Document 05/17/23 13:48 DL [id number] 05/17/23 13:57 DL Document 05/24/23 13:27 PL [id number] 05/24/23 13:31 PL 05/03/23 05/10/23 05/17/23 13:49 15:01 13:48 - Today's Visit Information Type of service Follow-up Visit Follow-up Visit Follow-up Visit (Physician/ADMINISTRATIVE TECHNICIAN (Physician/ADMINISTRATIVE TECHNICIAN (Physician/ADMINISTRATIVE TECHNICIAN ) ) ) Arrival Mode Ambulatory, Ambulatory, Ambulatory, Walker Walker Walker Transfer Assistance None None Transfer Board Patient Identification Verified (Name & Yes Yes Yes ) Patient Requires Transmission-Based No No No Precautions Safety Precautions NA NA Finger Stick Blood Sugar(mg/dl) (if 240 indicated): Blood Sugar Stated by Patient Height and Weight Body Mass Index (BMI) 46.6 46.6 46.6 BMI Classification Obese Obese Obese Vital Signs Temperature (97.8 F-99.1 F) 97.7 F L 98 F 97.5 F L Temperature Source Temporal Temporal Temporal Pulse Rate (60-100) 67 72 Pulse Location Monitor Monitor Respiratory Rate (12-18) 20 H 18 22 H Respiratory rate source Observation Observation Blood Pressure (90/60-120/80) 161/47 H 150/60 H 183/54 H Blood Pressure Mean (mm Hg) 85 90 97 Source Monitor History Since Last Visit- (Skip if this is Patient's initial visit) Have you changed medications since your No No No last visit? Any new allergies or adverse reactions No No No Had a fall/change in ADL's that may No No No increase risk of falls Signs or symptoms of abuse and/or No No No neglect since last visit Have you been in the hospital since your No No No last visit? Has dressing in place as prescribed Yes Yes Yes Has compression in place as prescribed Yes Yes Yes Has offloadiing in place as prescribed N/A N/A N/A Experienced any changes in pain level or No No No management Pain Scale: 0-10 Numeric Is Patient Pain Free? Yes Yes Yes 05/24/23 13:27 WC - Today's Visit Information Type of service Follow-up Visit (Physician/ADMINISTRATIVE TECHNICIAN ) Arrival Mode Ambulatory, Walker Transfer Assistance None Patient Identification Verified (Name & Yes ) Patient Requires Transmission-Based No Precautions Safety Precautions NA Finger Stick Blood Sugar(mg/dl) (if indicated): Blood Sugar Height and Weight Body Mass Index (BMI) 46.6 BMI Classification Obese Vital Signs Temperature (97.8 F-99.1 F) 96.6 F L Temperature Source Temporal Pulse Rate (60-100) 63 Pulse Location Respiratory Rate (12-18) 20 H Respiratory rate source Blood Pressure (90/60-120/80) 187/64 H Blood Pressure Mean (mm Hg) 105 Source History Since Last Visit- (Skip if this is Patient's initial visit) Have you changed medications since your last visit? Any new allergies or adverse reactions Had a fall/change in ADL's that may increase risk of falls Signs or symptoms of abuse and/or neglect since last visit Have you been in the hospital since your last visit? Has dressing in place as prescribed Has compression in place as prescribed Has offloadiing in place as prescribed Experienced any changes in pain level or management Pain Scale: 0-10 Numeric Is Patient Pain Free? Yes - Nurse 1 - General Ulcer Measurement Start: 05/03/23 13:48 Freq: Status: Active Protocol: Activity Type Activity Date Activity User E-sign Co-sign Detail Recorded Client Recorded Date Recorded By Document 05/03/23 13:49 DL [id number] 05/03/23 14:00 DL Document 05/17/23 13:48 DL [id number] 05/17/23 13:57 DL Document 05/24/23 13:31 PL [id number] 05/24/23 13:32 PL 05/03/23 05/17/23 05/24/23 13:49 13:48 13:31 Wound Center Nurse 1 2-right medial knee ulcer -Combined with other wound No -Current Size (cm) - Length 1.9 2.2 -Current Size (cm) - Width 2.5 2.1 -Current Size (cm) - Depth 0.5 0.4 -Total Square Cm 4.75 4.62 -Undermining/Tunneling Starts (O'clock 4 ) -Undermining/Tunneling Ends (O'clock) 7 -Maximum Distance (cm) 0.5 -Exudate Amt Medium -Exudate Type Serosanguineous -Wound Margin Distinct, Outline Attached -Granulation Amt Medium (34-66%) -Granulation Quality Red -Necrosis Amt Medium (34-66%) -Necrotic Tissue Type Adherent Slough -Structure Exposed N/A -Texture (Miroslava-wound Skin Appearance) Localized Edema ,Scarring -Moisture (Miroslava-wound Skin Appearance) No Abnormality -Color (Miroslava-wound Skin Appearance) Erythema -Temperature (Miroslava-wound Skin No Abnormality Appearance) (Pt Warm) -Tenderness on Palpation (Miroslava-wound No Skin Appearance) -Ulcer Cleansing Soap and Water -Foul Odor after Cleansing No #1- R mid LOWER KNEE -Combined with other wound No -Current Size (cm) - Length 6 6.5 6.6 -Current Size (cm) - Width 5.6 2.5 1.8 -Current Size (cm) - Depth 1.3 0.9 0.6 -Total Square Cm 33.6 16.25 11.88 -Photo Taken Yes -Tunneling Position (O'clock) 10 -Tunneling Distance (cm) 0.6 -Exudate Amt Medium Medium -Exudate Type Serosanguineous Serosanguineous -Wound Margin Distinct, Distinct, Outline Outline Attached Attached -Granulation Amt Small (1-33%) Medium (34-66%) -Granulation Quality Red Red -Necrosis Amt Large (67-100%) Medium (34-66%) -Necrotic Tissue Type Adherent Slough Adherent Slough -Structure Exposed N/A N/A -Texture (Miroslava-wound Skin Appearance) Localized Edema Localized Edema ,Scarring ,Scarring -Moisture (Miroslava-wound Skin Appearance) Dry/Scaly Dry/Scaly -Color (Miroslava-wound Skin Appearance) Erythema, Erythema Hemosiderin Staining -Temperature (Miroslava-wound Skin No Abnormality No Abnormality Appearance) (Pt Warm) (Pt Warm) -Ulcer Cleansing Soap and Water Soap and Water -Foul Odor after Cleansing No No -Anesthetic Used 5% Lidocaine 5% Lidocaine Gel Gel Right Calf (cm) 56 Right Ankle (cm) 25.5 WC - Nurse 2 - General Ulcer CM Notes Start: 05/03/23 13:48 Freq: Status: Active Protocol: Activity Type Activity Date Activity User E-sign Co-sign Detail Recorded Client Recorded Date Recorded By Document 05/03/23 14:27 [id number] 05/03/23 14:35 Document 05/10/23 15:33 [id number] 05/10/23 15:40 Document 05/17/23 14:34 [id number] 05/17/23 14:37 Document 05/24/23 14:10 [id number] 05/24/23 14:15 05/03/23 05/10/23 05/17/23 14:27 15:33 14:34 Wound Center Nurse 2 2-right medial knee ulcer -Time 14:31 15:34 14:34 -Correct Patient Yes Yes Yes -Correct Side, Site, Position Yes Yes Yes -Correct Procedure Yes Yes Yes -Procedure Performed Yes Yes Yes -Type of Procedure Debridement Debridement Debridement -Clinical Debridement Subcutaneous Subcutaneous Subcutaneous -Tissue Removed Subcutaneous Subcutaneous Subcutaneous -Post Debridement (cm) - Length 1.0 1.7 1.7 -Post Debridement (cm) - Width 1.5 1.9 1.8 -Post Debridement (cm) - Depth 0.5 0.8 1.1 -Total Square (Post) (cm) 1.50 3.23 3.06 -Area of Debridement (cm) - Length 1.0 1.7 1.7 -Area of Debridement (cm) - Width 1.5 1.9 1.8 -Total Square (Area) (cm) 1.50 3.23 3.06 -Tunneling No No No -Undermining/Tunneling No No No -Circular Undermining No No No -Wound/Ulcer Outcome Not Healed Not Healed Not Healed -Ulcer Cleansing Rinsed/ Rinsed/ Rinsed/ Irrigated with Irrigated with Irrigated with Saline Saline Saline -Foul Odor after Cleansing No No No -Bioengineered Tissue No No No -Bleeding Controlled with Pressure Pressure Pressure -Treatment Response Procedure Procedure Procedure Tolerated Well Tolerated Well Tolerated Well -Offloading No No No -Debridement - Subq, 1st 20sq cm No No No #1- R mid LOWER KNEE -Time 14:31 15:36 14:34 -Correct Patient Yes Yes Yes -Correct Side, Site, Position Yes Yes Yes -Correct Procedure Yes Yes Yes -Procedure Performed Yes Yes Yes -Type of Procedure Debridement Debridement Debridement -Clinical Debridement Subcutaneous Subcutaneous Subcutaneous -Tissue Removed Subcutaneous Subcutaneous Subcutaneous -Post Debridement (cm) - Length 7.5 7.5 7.0 -Post Debridement (cm) - Width 2.6 3.0 2.5 -Post Debridement (cm) - Depth 1.0 1.2 1.0 -Total Square (Post) (cm) 19.50 22.50 17.50 -Area of Debridement (cm) - Length 7.5 7.5 7.0 -Area of Debridement (cm) - Width 2.6 3.0 2.5 -Total Square (Area) (cm) 19.50 22.50 17.50 -Tunneling No No No -Undermining/Tunneling No No No -Circular Undermining No No No -Wound/Ulcer Outcome Not Healed Not Healed Not Healed -Ulcer Cleansing Rinsed/ Rinsed/ Rinsed/ Irrigated with Irrigated with Irrigated with Saline Saline Saline -Foul Odor after Cleansing No No No -Bioengineered Tissue No No No -Bleeding Controlled with Pressure Pressure Pressure -Treatment Response Procedure Procedure Procedure Tolerated Well Tolerated Well Tolerated Well -Offloading No No No -Debridement - Subq, 1st 20sq cm Yes Yes Yes -Debridement, SubQ, ea addt'l 20sq cm 1 1 1 or part thereof Pain Scale: 0-10 Numeric Is Patient Pain Free? Yes Yes Yes 05/24/23 14:10 Wound Center Nurse 2 2-right medial knee ulcer -Time 14:10 -Correct Patient Yes -Correct Side, Site, Position Yes -Correct Procedure Yes -Procedure Performed Yes -Type of Procedure Debridement -Clinical Debridement Subcutaneous -Tissue Removed Subcutaneous -Post Debridement (cm) - Length 2.0 -Post Debridement (cm) - Width 2.1 -Post Debridement (cm) - Depth 0.5 -Total Square (Post) (cm) 4.20 -Area of Debridement (cm) - Length 2.0 -Area of Debridement (cm) - Width 2.1 -Total Square (Area) (cm) 4.20 -Tunneling No -Undermining/Tunneling No -Circular Undermining No -Wound/Ulcer Outcome Not Healed -Ulcer Cleansing Rinsed/ Irrigated with Saline -Foul Odor after Cleansing No -Bioengineered Tissue No -Bleeding Controlled with Pressure -Treatment Response Procedure Tolerated Well -Offloading No -Debridement - Subq, 1st 20sq cm No #1- R mid LOWER KNEE -Time 14:12 -Correct Patient Yes -Correct Side, Site, Position Yes -Correct Procedure Yes -Procedure Performed Yes -Type of Procedure Debridement -Clinical Debridement Subcutaneous -Tissue Removed Subcutaneous -Post Debridement (cm) - Length 6.5 -Post Debridement (cm) - Width 2.4 -Post Debridement (cm) - Depth 0.5 -Total Square (Post) (cm) 15.60 -Area of Debridement (cm) - Length 6.5 -Area of Debridement (cm) - Width 2.4 -Total Square (Area) (cm) 15.60 -Tunneling No -Undermining/Tunneling No -Circular Undermining No -Wound/Ulcer Outcome Not Healed -Ulcer Cleansing Rinsed/ Irrigated with Saline -Foul Odor after Cleansing No -Bioengineered Tissue No -Bleeding Controlled with Pressure -Treatment Response Procedure Tolerated Well -Offloading No -Debridement - Subq, 1st 20sq cm Yes -Debridement, SubQ, ea addt'l 20sq cm or part thereof Pain Scale: 0-10 Numeric Is Patient Pain Free? Yes WC - Nurse 3 - General Ulcer D/C NN Start: 05/03/23 13:48 Freq: Status: Active Protocol: Activity Type Activity Date Activity User E-sign Co-sign Detail Recorded Client Recorded Date Recorded By Document 05/03/23 14:43 [facility] [id number] 05/03/23 14:46 [facility] Document 05/10/23 16:03 [facility] [id number] 05/10/23 16:04 BM Document 05/17/23 15:16 PL [id number] 05/17/23 15:18 PL Document 05/24/23 14:24 [facility] [id number] 05/24/23 14:25 [facility] 05/03/23 05/10/23 05/17/23 14:43 16:03 15:16 Wound Care Center Nurse 3 2-right medial knee ulcer -Ulcer Cleansing Soap and Water Rinsed/ Rinsed/ Irrigated with Irrigated with Saline Saline -Foul Odor after Cleansing No No -Other Dressing DAKINS MOIST dakins moist Dakins solution GAUZE; DRSG PER gauze ,ABD,Kerlix DL ENDOSCOPY TECHNICIAN -Primary Dressing Covered/Secured with Dry Gauze & Dry Gauze & Secured with Roll Gauze, Roll Gauze, Tape Secured with Secured with Tape Tape -Other Covering ABD abd #1- R mid LOWER KNEE -Ulcer Cleansing Rinsed/ Rinsed/ Rinsed/ Irrigated with Irrigated with Irrigated with Saline Saline Saline -Foul Odor after Cleansing No No -Other Dressing DAKINS MOIST dakins moist Dakins solution GAUZE PER DL gauze ,ABD,kerlix ENDOSCOPY TECHNICIAN -Primary Dressing Covered/Secured with Dry Gauze & Dry Gauze & Secured with Roll Gauze, Roll Gauze, Tape Secured with Secured with Tape Tape -Other Covering ABD abd Right -Compression Wrap Mc Wrap Mc Wrap -Other 6 mc wrap Treatment Response Procedure Procedure Tolerated Well Tolerated Well Pain Scale: 0-10 Numeric Is Patient Pain Free? Yes Yes Yes WC - Visit Discharge Discharge Condition Stable Stable Stable Ambulatory Status Ambulatory Ambulatory, Ambulatory, Walker Walker Transportation Private Auto Private Auto Private Auto Accompanied by Facility Type Home Health 05/24/23 14:24 Wound Care Center Nurse 3 2-right medial knee ulcer -Ulcer Cleansing Rinsed/ Irrigated with Saline -Foul Odor after Cleansing No -Other Dressing dakins -Primary Dressing Covered/Secured with Dry Gauze & Roll Gauze, Secured with Tape -Other Covering abd #1- R mid LOWER KNEE -Ulcer Cleansing Rinsed/ Irrigated with Saline -Foul Odor after Cleansing No -Other Dressing dakins moist gauze -Primary Dressing Covered/Secured with Dry Gauze & Roll Gauze, Secured with Tape -Other Covering abd Right -Compression Wrap Mc Wrap -Other Treatment Response Procedure Tolerated Well Pain Scale: 0-10 Numeric Is Patient Pain Free? Yes WC - Visit Discharge Discharge Condition Stable Ambulatory Status Ambulatory, Walker Transportation Private Auto Accompanied by gr skylar Facility Type Assessment/Plan Assessment/Plan (1) Open wound of right knee with complication: CODE(S): S81.001A - Unspecified open wound, right knee, initial encounter QUALIFIERS: Encounter type: subsequent encounter Qualified Code(s): S81.001D - Unspecified open wound, right knee, subsequent encounter (2) Hematoma of right knee region: CODE(S): S80.01XA - Contusion of right knee, initial encounter (3) DM type 2, goal HbA1c < 7%: CODE(S): E11.9 - Type 2 diabetes mellitus without complications PLAN: HgbA1c is 6.9 on 04/13/23. (4) Anemia of chronic disease: CODE(S): D63.8 - Anemia in other chronic diseases classified elsewhere (5) Anticoagulant long-term use: CODE(S): Z79.01 - correction (current) use of anticoagulants (6) On rivaroxaban therapy: CODE(S): Z79.01 - correction (current) use of anticoagulants (7) Obesity: CODE(S): E66.9 - Obesity, unspecified (8) Leg swelling: CODE(S): M79.89 - Other specified soft tissue disorders PLAN: Plan Continue Dakin's dressing changes daily. Operative cultures were negative. She was treated with IV antibiotics initially and was changed to Keflex at discharge and has finished them. Prealbumin was 12.5 on 04/20/23. Continue nutritional supplementation with prot ein to help the healing process. Patient is obese and has moderate swelling that can be problematic as it will slow down healing. Continue mc wrap for compression. Hgb was 7.1 at discharge. She was discharged on Iron supplementation. Hgb from 04/28/23 was 9.0. If there is a plateau during the healing process which is likely secondary to the swelling at this time. Can always proceed with delayed closure with skin grafting. Before surgery, may try an advanced skin substitute graft. We discussed advanced skin substitute grafts, and she states she is interested. Followup 2 weeks.
== END 2023-05-27 23:59 | disposition home or self-care (01) ==
LOC: WC 13:30
PROVIDERS: Referring Provider Surgery; Visit Provider Surgery
DX: S80.01XA Contusion of right knee, initial encounter (principal); E11.9 Type 2 diabetes mellitus without complications; S81.001S Unspecified open wound, right knee, sequela; D63.8 Anemia in other chronic diseases classified elsewhere; Z79.01 Long term (current) use of anticoagulants; E66.9 Obesity, unspecified; M79.89 Other specified soft tissue disorders
CPT/HCPCS: 11042; 11045

== ENCOUNTER → 2023-06-11 | Outpatient (CLI) | payer MEDICARE, SELFPAY ==
[2023-06-11 10:15] LABS: Hematocrit 30.7 % (37-47); Hemoglobin 9.3 g/dL (12.0-15.0); Mean Corp Hgb Conc 30.3 g/dL (32-36); Mean Corpuscular Hgb 28.7 pg (27.0-32.0); Mean Corpuscular Volume 94.8 fL (81-99); Mean Platelet Vol. 11.1 fl (6.2-12.0); Platelet Count 173 K/mm3 (150-450); RBC Distribution Width CV 16.2 % (11.6-14.6); RBC Distribution Width SD 56.7 fl (35.1-43.9); Red Blood Count 3.24 M/mm3 (4.2-5.4); White Blood Count 7.1 K/mm3 (4.4-11.0)
[2023-06-11 10:19] LABS: International Normalized Ratio 2.1
[2023-06-11 10:27] LABS: ALB/GLOB Ratio 0.8 RATIO (0.9-2.4); AST(SGOT) 20 U/L (15-37); Alanine Aminotransfer ALT/SGPT 18 U/L (13-56); Albumin, Serum 3.1 g/dL (3.2-5.0); Alkaline Phosphatase 56 U/L (45-117); Anion Gap 6 (5-15); BUN 35 mg/dL (7-18); BUN/Creat Ratio 19.4 RATIO (10-20); Calcium,Total 9.1 mg/dL (8.5-10.1); Chloride 111 mmol/L (98-107); EST Glomerular Filtration Rate 29 mL/min (>60); Est Glom Filt Rate - Afr Amer 36 mL/min (>60); Globulin 3.7 g/dL (2.2-4.2); Glucose 348 mg/dL (74-106); Potassium 4.6 mmol/L (3.5-5.1); Protein, Total 6.8 g/dL (6.4-8.2); Sodium Level 138 mmol/L (136-145)
== END | disposition home or self-care (01) ==
LOC: LAB 09:06
DX: N18.30 Chronic kidney disease, stage 3 unspecified (principal); D64.9 Anemia, unspecified; R58 Hemorrhage, not elsewhere classified
CPT/HCPCS: 36415; 80053; 85027; 85610

== ENCOUNTER 2023-06-14 13:30 | Outpatient (RCR) | payer MEDICARE, SELFPAY ==
[2023-05-28 00:20] VITALS: BP 187/64; PULSE 63; RESP 20; TEMP 35.9; BMI 46.6
--- NOTE | 2023-06-03 16:26 | WC ---
PT discharged from [place] yesterday, Heart Cath/stent placement done per [facility]. HH to resume wound care this week as previously ordered and will recert in a week. Ami Koroma aware.
[2023-06-07 13:40] VITALS: BP 168/49; PULSE 64; RESP 18; TEMP 35.8; BMI 46.6
--- NOTE | 2023-06-07 15:25 | PN.PCM_ITS ---
History of Present Illness Date of Service: 06/07/23 Chief Complaint: Open surgical hematoma wound right knee History of Wound: The patient is a 72 y/o woman with a history of diabetes, was admitted to the hospital with increasing redness and swelling and pain in her right knee after a mechanical fall. She is on anticoagulation and with the fall, she sustained a hematoma. When she initially came to the ED, she was given a script for Keflex and Bactrim. When she failed outpatient therapy with po antibiotics, she was admitted the next time she came to the ED. She was started on Vancomycin and Rocephin. Her WBC was 5.6. Hgb was 8.6. Her HgbA1c was 6.9 on 04/13/23. Dr. Gallegos from Orthopedics was consulted for this hematoma right knee. He proceeded with an I&D and evacuation of the hematoma. Wound care was started and a few days later he took her back to surgery to attempt closure of the wound. Her skin was thin and not very strong. He had difficulty with closure because the skin was tearing as there was too much tension from the swelling and from her obesity. So a VAC was applied and he consulted me to evaluate this patient for chronic wound care and for surgical options for wound closure. She is currently doing Dakin's dressing changes as she has cancelled the VAC because of too much suction irritation on the surrounding skin. Today she denies fever. Her appetite is ok. Progress of Wound: Improved. Objective Data Objective Data Vital Signs: Vital Signs Temp Pulse Resp BP 96.4 F L 64 18 168/49 H 06/07/23 13:40 06/07/23 13:40 06/07/23 13:40 06/07/23 13:40 Weight: 307 lb Body Mass Index (BMI) 46.6 Prealbumin was 12.5 on 04/20/23. Encourage nutritional supplementation with protein to help the healing process. Lab / Micro Data Attestation: I reviewed the patient's lab results. Lab results narrative: HgbA1c is 6.9 from 04/13/23. For elective surgeries such as a skin graft in the future, the HgbA1c needs to be less than 8. Charges/Coding Procedures Integumentary 111xxx-113xx: [id number] Zita subq tissue 20 sq cm/< (ICD-10 - S81.001A, S80.01xA, E11.9, D63.8, Z79.01, E66.9, M79.89) Debridement Note Debridement Note Wound debrided: #1 Right knee cluster. Laterality: Right Wound Grade/Stage: 2. Type of Debridement: Excisional debridement Anesthesia Used: 4% Lidocaine Solution Depth: Down to and including healthy tissue and in the subcutaneous layer Percentage of wound debrided: 100 Instrument Used: 3mm curette Tissue Removed: subcutaneous tissue. Severity: Fat Layer Exposed Amount of bleeding with debridement: Mild Bleeding Controlled with: Pressure and Compression and gauze Patient tolerated procedure: Patient tolerated procedure well Post-Debridement Measurements and Additional Note: Post-Debridement Measurements/Treatment - Nurse 1 - General Ulcer Assessment Start: 06/07/23 13:40 Freq: Status: Active Protocol: USHA Activity Type Activity Date Activity User E-sign Co-sign Detail Recorded Client Recorded Date Recorded By Document 06/07/23 13:40 SAE [id number] 06/07/23 13:57 RB 06/07/23 13:40 WC - Today's Visit Information Type of service Follow-up Visit (Physician/CORPORATE TRAVEL CONSULTANT ) Arrival Mode Ambulatory, Walker Transfer Assistance None Patient Identification Verified (Name & Yes ) Patient Requires Transmission-Based No Precautions Finger Stick Blood Sugar(mg/dl) (if 248 this am indicated): Blood Sugar Stated by Patient Height and Weight Body Mass Index (BMI) 46.6 BMI Classification Obese Vital Signs Temperature (97.8 F-99.1 F) 96.4 F L Temperature Source Temporal Pulse Rate (60-100) 64 Pulse Location Monitor Respiratory Rate (12-18) 18 Respiratory rate source Observation Blood Pressure (90/60-120/80) 168/49 H Blood Pressure Mean (mm Hg) 88 Source Monitor Position Semi-Fowlers Blood Pressure Location Left Arm History Since Last Visit- (Skip if this is Patient's initial visit) Have you changed medications since your No last visit? Any new allergies or adverse reactions No Had a fall/change in ADL's that may No increase risk of falls Signs or symptoms of abuse and/or No neglect since last visit Have you been in the hospital since your No last visit? Has dressing in place as prescribed Yes Has compression in place as prescribed Yes Has offloadiing in place as prescribed No Experienced any changes in pain level or No management Pain Scale: 0-10 Numeric Is Patient Pain Free? Yes WC - Nurse 1 - General Ulcer Measurement Start: 06/07/23 13:40 Freq: Status: Active Protocol: Activity Type Activity Date Activity User E-sign Co-sign Detail Recorded Client Recorded Date Recorded By Document 06/07/23 13:40 RB [id number] 06/07/23 13:57 RB 06/07/23 13:40 Wound Center Nurse 1 2-right medial knee ulcer -Combined with other wound No -Current Size (cm) - Length 1.5 -Current Size (cm) - Width 1.7 -Current Size (cm) - Depth 0.1 -Total Square Cm 2.55 -Tunneling No -Undermining/Tunneling No -Circular Undermining No -Exudate Amt Medium -Exudate Type Serosanguineous -Wound Margin Distinct, Outline Attached -Granulation Amt Medium (34-66%) -Granulation Quality [place] -Slough/Fibrin Yes -Necrosis Amt Medium (34-66%) -Necrotic Tissue Type Adherent Slough -Structure Exposed N/A -Texture ([place]-wound Skin Appearance) Assessed -Moisture ([place]-wound Skin Appearance) Assessed -Color ([place]-wound Skin Appearance) Assessed -Temperature ([place]-wound Skin No Abnormality Appearance) (Pt Warm) -Tenderness on Palpation ([place]-wound No Skin Appearance) -Ulcer Cleansing Wound Cleanser -Foul Odor after Cleansing No -Anesthetic Used 5% Lidocaine Gel #1- R mid LOWER KNEE -Combined with other wound No -Current Size (cm) - Length 5 -Current Size (cm) - Width 1 -Current Size (cm) - Depth 0.2 -Total Square Cm 5 -Tunneling No -Undermining/Tunneling No -Circular Undermining No -Exudate Amt Medium -Exudate Type Serosanguineous -Wound Margin Distinct, Outline Attached -Granulation Amt Medium (34-66%) -Granulation Quality [place] -Slough/Fibrin Yes -Necrosis Amt Medium (34-66%) -Necrotic Tissue Type Adherent Slough -Structure Exposed N/A -Texture ([place]-wound Skin Appearance) Assessed -Moisture ([place]-wound Skin Appearance) Assessed -Color ([place]-wound Skin Appearance) Assessed -Temperature ([place]-wound Skin No Abnormality Appearance) (Pt Warm) -Tenderness on Palpation ([place]-wound No Skin Appearance) -Ulcer Cleansing Wound Cleanser -Foul Odor after Cleansing No -Anesthetic Used 5% Lidocaine Gel Lower Limb Edema Present Yes Right Calf (cm) 56 Right Ankle (cm) 27 WC - Nurse 2 - General Ulcer CM Notes Start: 06/07/23 13:40 Freq: Status: Active Protocol: Activity Type Activity Date Activity User E-sign Co-sign Detail Recorded Client Recorded Date Recorded By Document 06/07/23 14:07 [id number] 06/07/23 14:12 ALBERT 06/07/23 14:07 Wound Center Nurse 2 2-right medial knee ulcer -Time 14:09 -Correct Patient Yes -Correct Side, Site, Position Yes -Correct Procedure Yes -Procedure Performed Yes -Type of Procedure Debridement -Clinical Debridement Subcutaneous -Tissue Removed Subcutaneous -Post Debridement (cm) - Length 1.7 -Post Debridement (cm) - Width 1.8 -Post Debridement (cm) - Depth 0.2 -Total Square (Post) (cm) 3.06 -Area of Debridement (cm) - Length 1.7 -Area of Debridement (cm) - Width 1.8 -Total Square (Area) (cm) 3.06 -Tunneling No -Undermining/Tunneling No -Circular Undermining No -Wound/Ulcer Outcome Not Healed -Ulcer Cleansing Rinsed/ Irrigated with Saline -Foul Odor after Cleansing No -Bioengineered Tissue No -Bleeding Controlled with Pressure -Treatment Response Procedure Tolerated Well -Offloading No -Debridement - Subq, 1st 20sq cm No #1- R mid LOWER KNEE -Time 14:09 -Correct Patient Yes -Correct Side, Site, Position Yes -Correct Procedure Yes -Procedure Performed Yes -Type of Procedure Debridement -Clinical Debridement Subcutaneous -Tissue Removed Subcutaneous -Post Debridement (cm) - Length 5.0 -Post Debridement (cm) - Width 1.3 -Post Debridement (cm) - Depth 0.1 -Total Square (Post) (cm) 6.50 -Area of Debridement (cm) - Length 5.0 -Area of Debridement (cm) - Width 1.3 -Total Square (Area) (cm) 6.50 -Tunneling No -Undermining/Tunneling No -Circular Undermining No -Wound/Ulcer Outcome Not Healed -Ulcer Cleansing Rinsed/ Irrigated with Saline -Foul Odor after Cleansing No -Bioengineered Tissue No -Bleeding Controlled with Pressure -Treatment Response Procedure Tolerated Well -Offloading No -Debridement - Subq, 1st 20sq cm Yes Pain Scale: 0-10 Numeric Is Patient Pain Free? Yes - Nurse 3 - General Ulcer D/C NN Start: 06/07/23 13:40 Freq: Status: Active Protocol: Activity Type Activity Date Activity User E-sign Co-sign Detail Recorded Client Recorded Date Recorded By Document 06/07/23 14:17 [id number] 06/07/23 14:19 06/07/23 14:17 Wound Care Center Nurse 3 2-right medial knee ulcer -Other Dressing dakins moistened gauze -Primary Dressing Covered/Secured with Dry Gauze & Roll Gauze, Secured with Tape #1- R mid LOWER KNEE -Other Dressing dakins moistened gauze -Primary Dressing Covered/Secured with Dry Gauze & Roll Gauze, Secured with Tape Other/Comment adaptic to excoriated area around ulcers Treatment Response Procedure Tolerated Well Pain Scale: 0-10 Numeric Is Patient Pain Free? Yes WC - Visit Discharge Discharge Condition Stable Ambulatory Status Ambulatory, Walker Transportation Private Auto Medication Reconcilliation completed & No provided to patient/care provider Clinical Summary of Care Provided Yes Assessment/Plan Assessment/Plan (1) Open wound of right knee with complication: CODE(S): S81.001A - Unspecified open wound, right knee, initial encounter QUALIFIERS: Encounter type: subsequent encounter Qualified Code(s): S81.001D - Unspecified open wound, right knee, subsequent encounter (2) Hematoma of right knee region: CODE(S): S80.01XA - Contusion of right knee, initial encounter (3) DM type 2, goal HbA1c < 7%: CODE(S): E11.9 - Type 2 diabetes mellitus without complications PLAN: HgbA1c is 6.9 on 04/13/23. (4) Anemia of chronic disease: CODE(S): D63.8 - Anemia in other chronic diseases classified elsewhere (5) Anticoagulant long-term use: CODE(S): Z79.01 - group home (current) use of anticoagulants (6) On rivaroxaban therapy: CODE(S): Z79.01 - group home (current) use of anticoagulants (7) Obesity: CODE(S): E66.9 - Obesity, unspecified (8) Leg swelling: CODE(S): M79.89 - Other specified soft tissue disorders PLAN: Plan Continue Dakin's dressing changes daily. Operative cultures were negative. She was treated with IV antibiotics initially and was changed to Keflex at discharge and has finished them. Prealbumin was 12.5 on 04/20/23. Continue nutritional supplementation with protein to help the healing process. Patient is obese and has moderate swelling that can be problematic as it will slow down healing. Continue tashia wrap for compression. Hgb was 7.1 at discharge. She was discharged on Iron supplementation. Hgb from 04/28/23 was 9.0. If there is a plateau during the healing process which is likely secondary to the swelling at this time, then we can always proceed with delayed closure with skin grafting. Before any future surgery, may try an advanced skin substitute graft. We discussed advanced skin substitute grafts, and she states she is interested. Her operative debridement is scheduled for 06/23/23. Will discuss advanced skin substitute grafts postoperatively if healing plateaus. Followup one week.
[2023-06-14 13:24] VITALS: BP 161/50; PULSE 60; RESP 18; TEMP 35.9; BMI 46.6
--- NOTE | 2023-06-14 14:30 | PCM.WC.PN ---
History of Present Illness Date of Service: 06/14/23 Chief Complaint: Open surgical hematoma wound right knee History of Wound: The patient is a 72 y/o woman with a history of diabetes, was admitted to the hospital with increasing redness and swelling and pain in her right knee after a mechanical fall. She is on anticoagulation and with the fall, she sustained a hematoma. When she initially came to the ED, she was given a script for Keflex and Bactrim. When she failed outpatient therapy with po antibiotics, she was admitted the next time she came to the ED. She was started on Vancomycin and Rocephin. Her WBC was 5.6. Hgb was 8.6. Her HgbA1c was 6.9 on 04/13/23. Dr. Gallegos from Orthopedics was consulted for this hematoma right knee. He proceeded with an I&D and evacuation of the hematoma. Wound care was started and a few days later he took her back to surgery to attempt closure of the wound. Her skin was thin and not very strong. He had difficulty with closure because the skin was tearing as there was too much tension from the swelling and from her obesity. So a VAC was applied and he consulted me to evaluate this patient for chronic wound care and for surgical options for wound closure. She is currently doing Dakin's dressing changes as she has cancelled the VAC because of too much suction irritation on the surrounding skin. Today she denies fever. Her appetite is ok. Progress of Wound: Both the right medial knee ulcer and the right knee ulcers are smaller in size with minimal depth. She has +4 edema. She has not been wearing her compression. Objective Data Objective Data Vital Signs: Vital Signs Temp Pulse Resp BP O2 Del Method 96.7 F L 60 18 161/50 H Room Air 06/14/23 13:24 06/14/23 13:24 06/14/23 13:24 06/14/23 13:24 06/14/23 13:24 Oxygen Delivery Method Room Air Weight: 307 lb Body Mass Index (BMI) 46.6 Charges/Coding Procedures Integumentary 111xxx-113xx: 97699 Zita subq tissue 20 sq cm/< Debridement Note Debridement Note Wound debrided: #1 Right knee and right medial knee ulcers Laterality: Right Wound Grade/Stage: 2. Type of Debridement: Excisional debridement Anesthesia Used: 4% Lidocaine Solution Depth: Down to and including healthy tissue and in the subcutaneous layer Percentage of wound debrided: 100 Instrument Used: 3mm curette Tissue Removed: subcutaneous tissue. Severity: Fat Layer Exposed Amount of bleeding with debridement: Mild Bleeding Controlled with: Pressure and Compression and gauze Patient tolerated procedure: Patient tolerated procedure well Post-Debridement Measurements and Additional Note: Post-Debridement Measurements/Treatment AMBREEN - Nurse 1 - General Ulcer Assessment Start: 06/07/23 13:40 Freq: Status: Active Protocol: USHA Activity Type Activity Date Activity User E-sign Co-sign Detail Recorded Client Recorded Date Recorded By Document 06/07/23 13:40 RB [id number] 06/07/23 13:57 RB Document 06/14/23 13:24 BM Desktop 06/14/23 13:35 BM 06/07/23 06/14/23 13:40 13:24 - Today's Visit Information Type of service Follow-up Visit Follow-up Visit (Physician/FISH WARDEN (Physician/FISH WARDEN ) ) Arrival Mode Ambulatory, Ambulatory, Walker Walker Transfer Assistance None None Patient Identification Verified (Name & Yes Yes ) Patient Requires Transmission-Based No No Precautions Finger Stick Blood Sugar(mg/dl) (if 248 this am indicated): Blood Sugar Stated by Patient Height and Weight Body Mass Index (BMI) 46.6 46.6 BMI Classification Obese Obese Vital Signs Temperature (97.8 F-99.1 F) 96.4 F L 96.7 F L Temperature Source Temporal Temporal Pulse Rate (60-100) 64 60 Pulse Location Monitor Monitor Respiratory Rate (12-18) 18 18 Respiratory rate source Observation Observation Oxygen Delivery Method Room Air Blood Pressure (90/60-120/80) 168/49 H 161/50 H Blood Pressure Mean (mm Hg) 88 87 Source Monitor Monitor Position Semi-Fowlers Sitting Blood Pressure Location Left Arm Right Arm History Since Last Visit- (Skip if this is Patient's initial visit) Have you changed medications since your No No last visit? Any new allergies or adverse reactions No No Had a fall/change in ADL's that may No No increase risk of falls Signs or symptoms of abuse and/or No No neglect since last visit Have you been in the hospital since your No No last visit? Has dressing in place as prescribed Yes Yes Has compression in place as prescribed Yes Yes Has offloadiing in place as prescribed No N/A Experienced any changes in pain level or No No management Left Footwear Regular Shoe Right Footwear Regular Shoe Pain Scale: 0-10 Numeric Is Patient Pain Free? Yes Yes WC - Nurse 1 - General Ulcer Measurement Start: 06/07/23 13:40 Freq: Status: Active Protocol: Activity Type Activity Date Activity User E-sign Co-sign Detail Recorded Client Recorded Date Recorded By Document 06/07/23 13:40 RB [id number] 06/07/23 13:57 RB Document 06/14/23 13:24 BM Desktop 06/14/23 13:35 BMF 06/07/23 06/14/23 13:40 13:24 Wound Center Nurse 1 2-right medial knee ulcer -Combined with other wound No No -Current Size (cm) - Length 1.5 1.1 -Current Size (cm) - Width 1.7 1.4 -Current Size (cm) - Depth 0.1 0.1 -Total Square Cm 2.55 1.54 -Date of Last Picture (Recall this 06/14/23 field) -Photo Taken Yes -Epithelialization Small 1-33% -Tunneling No No -Undermining/Tunneling No No -Circular Undermining No No -Exudate Amt Medium Medium -Exudate Type Serosanguineous Sanguineous -Wound Margin Distinct, Distinct, Outline Outline Attached Attached -Granulation Amt Medium (34-66%) Large (67-100%) -Granulation Quality Axson Axson -Slough/Fibrin Yes Yes -Necrosis Amt Medium (34-66%) Small (1-33%) -Necrotic Tissue Type Adherent Slough Adherent Slough -Structure Exposed N/A -Texture (Miroslava-wound Skin Appearance) Assessed Assessed, Scarring -Moisture (Miroslava-wound Skin Appearance) Assessed Assessed,Dry/ Scaly -Color (Miroslava-wound Skin Appearance) Assessed Assessed -Temperature (Miroslava-wound Skin No Abnormality No Abnormality Appearance) (Pt Warm) (Pt Warm) -Tenderness on Palpation (Miroslava-wound No No Skin Appearance) -Ulcer Cleansing Wound Cleanser Rinsed/ Irrigated with Saline -Foul Odor after Cleansing No No -Anesthetic Used 5% Lidocaine 5% Lidocaine Gel Gel #1- R mid LOWER KNEE -Combined with other wound No No -Current Size (cm) - Length 5 2.9 -Current Size (cm) - Width 1 1.1 -Current Size (cm) - Depth 0.2 0.1 -Total Square Cm 5 3.19 -Date of Last Picture (Recall this 06/14/23 field) -Photo Taken Yes -Epithelialization Small 1-33% -Tunneling No No -Undermining/Tunneling No No -Circular Undermining No No -Exudate Amt Medium Medium -Exudate Type Serosanguineous Sanguineous -Wound Margin Distinct, Distinct, Outline Outline Attached Attached -Granulation Amt Medium (34-66%) Large (67-100%) -Granulation Quality Axson Red -Slough/Fibrin Yes Yes -Necrosis Amt Medium (34-66%) Small (1-33%) -Necrotic Tissue Type Adherent Slough Adherent Slough -Structure Exposed N/A -Texture (Miroslava-wound Skin Appearance) Assessed Assessed, Scarring -Moisture (Miroslava-wound Skin Appearance) Assessed Assessed,Dry/ Scaly -Color (Miroslava-wound Skin Appearance) Assessed Assessed -Temperature (Miroslava-wound Skin No Abnormality No Abnormality Appearance) (Pt Warm) (Pt Warm) -Tenderness on Palpation (Miroslava-wound No No Skin Appearance) -Ulcer Cleansing Wound Cleanser Rinsed/ Irrigated with Saline -Foul Odor after Cleansing No No -Anesthetic Used 5% Lidocaine 5% Lidocaine Gel Gel Lower Limb Edema Present Yes Yes Right Calf (cm) 56 53 Right Ankle (cm) 27 28 - Nurse 2 - General Ulcer CM Notes Start: 06/07/23 13:40 Freq: Status: Active Protocol: Activity Type Activity Date Activity User E-sign Co-sign Detail Recorded Client Recorded Date Recorded By Document 06/07/23 14:07 [id number] 06/07/23 14:12 Document 06/14/23 14:08 Desktop 06/14/23 14:12 06/07/23 06/14/23 14:07 14:08 Wound Center Nurse 2 2-right medial knee ulcer -Time 14:09 14:10 -Correct Patient Yes Yes -Correct Side, Site, Position Yes Yes -Correct Procedure Yes Yes -Procedure Performed Yes Yes -Type of Procedure Debridement Debridement -Clinical Debridement Subcutaneous Subcutaneous -Tissue Removed Subcutaneous Subcutaneous -Post Debridement (cm) - Length 1.7 1.2 -Post Debridement (cm) - Width 1.8 1.7 -Post Debridement (cm) - Depth 0.2 0.1 -Total Square (Post) (cm) 3.06 2.04 -Area of Debridement (cm) - Length 1.7 1.2 -Area of Debridement (cm) - Width 1.8 1.7 -Total Square (Area) (cm) 3.06 2.04 -Tunneling No No -Undermining/Tunneling No No -Circular Undermining No No -Wound/Ulcer Outcome Not Healed Not Healed -Ulcer Cleansing Rinsed/ Rinsed/ Irrigated with Irrigated with Saline Saline -Foul Odor after Cleansing No No -Bioengineered Tissue No No -Bleeding Controlled with Pressure Pressure -Treatment Response Procedure Procedure Tolerated Well Tolerated Well -Offloading No No -Debridement - Subq, 1st 20sq cm No Yes #1- R mid LOWER KNEE -Time 14:09 14:12 -Correct Patient Yes Yes -Correct Side, Site, Position Yes Yes -Correct Procedure Yes Yes -Procedure Performed Yes Yes -Type of Procedure Debridement Debridement -Clinical Debridement Subcutaneous Subcutaneous -Tissue Removed Subcutaneous Subcutaneous -Post Debridement (cm) - Length 5.0 4.0 -Post Debridement (cm) - Width 1.3 1.4 -Post Debridement (cm) - Depth 0.1 0.1 -Total Square (Post) (cm) 6.50 5.60 -Area of Debridement (cm) - Length 5.0 4.0 -Area of Debridement (cm) - Width 1.3 1.4 -Total Square (Area) (cm) 6.50 5.60 -Tunneling No No -Undermining/Tunneling No No -Circular Undermining No No -Wound/Ulcer Outcome Not Healed Not Healed -Ulcer Cleansing Rinsed/ Rinsed/ Irrigated with Irrigated with Saline Saline -Foul Odor after Cleansing No No -Bioengineered Tissue No No -Bleeding Controlled with Pressure Pressure -Treatment Response Procedure Procedure Tolerated Well Tolerated Well -Offloading No No -Debridement - Subq, 1st 20sq cm Yes No Pain Scale: 0-10 Numeric Is Patient Pain Free? Yes Yes WC - Nurse 3 - General Ulcer D/C NN Start: 06/07/23 13:40 Freq: Status: Active Protocol: Activity Type Activity Date Activity User E-sign Co-sign Detail Recorded Client Recorded Date Recorded By Document 06/07/23 14:17 RB [id number] 06/07/23 14:19 RB 06/07/23 14:17 Wound Care Center Nurse 3 2-right medial knee ulcer -Other Dressing dakins moistened gauze -Primary Dressing Covered/Secured with Dry Gauze & Roll Gauze, Secured with Tape #1- R mid LOWER KNEE -Other Dressing dakins moistened gauze -Primary Dressing Covered/Secured with Dry Gauze & Roll Gauze, Secured with Tape Other/Comment adaptic to excoriated area around ulcers Treatment Response Procedure Tolerated Well Pain Scale: 0-10 Numeric Is Patient Pain Free? Yes WC - Visit Discharge Discharge Condition Stable Ambulatory Status Ambulatory, Walker Transportation Private Auto Medication Reconcilliation completed & No provided to patient/care provider Clinical Summary of Care Provided Yes Assessment/Plan Assessment/Plan (1) Open wound of right knee with complication: CODE(S): S81.001A - Unspecified open wound, right knee, initial encounter QUALIFIERS: Encounter type: subsequent encounter Qualified Code(s): S81.001D - Unspecified open wound, right knee, subsequent encounter (2) Hematoma of right knee region: CODE(S): S80.01XA - Contusion of right knee, initial encounter (3) DM type 2, goal HbA1c < 7%: CODE(S): E11.9 - Type 2 diabetes mellitus without complications PLAN: HgbA1c is 6.9 on 04/13/23. (4) Anemia of chronic disease: CODE(S): D63.8 - Anemia in other chronic diseases classified elsewhere (5) Anticoagulant long-term use: CODE(S): Z79.01 - halfway (current) use of anticoagulants (6) On rivaroxaban therapy: CODE(S): Z79.01 - long term care social worker (current) use of anticoagulants (7) Obesity: CODE(S): E66.9 - Obesity, unspecified (8) Leg swelling: CODE(S): M79.89 - Other specified soft tissue disorders PLAN: Plan Wound care - Stop the Dakin's moistened gauze and start Tiffani covered by gauze daily after washing with soap and water and patting dry. Patient is obese and has moderate swelling that can be problematic as it will slow down healing. Compression - Double tubigrip topped with LAUREL wrap. Hopefully this will help get better control of her edema. She sleeps in a bed. She may remove the compression at night, but she needs to place it back on first thing in the morning. Operative cultures were negative. She was treated with IV antibiotics initially and was changed to Keflex at discharge and has finished them. Prealbumin was 12.5 on 04/20/23. Continue nutritional supplementation with protein to help the healing process. Hgb was 7.1 at discharge. She was discharged on Iron supplementation. Hgb from 04/28/23 was 9.0. If there is a plateau during the healing process which is likely secondary to the swelling at this time, then we can always proceed with delayed closure with skin grafting. Before any future surgery, may try an advanced skin substitute graft. We discussed advanced skin substitute grafts, and she states she is interested. Followup two weeks.
== END 2023-06-26 23:59 | disposition home or self-care (01) ==
LOC: WC 13:30
PROVIDERS: Referring Provider Surgery; Visit Provider Surgery
DX: S81.001D Unspecified open wound, right knee, subsequent encounter (principal); E11.9 Type 2 diabetes mellitus without complications; S80.01XA Contusion of right knee, initial encounter; Z79.01 Long term (current) use of anticoagulants; D63.8 Anemia in other chronic diseases classified elsewhere; M79.89 Other specified soft tissue disorders; E66.9 Obesity, unspecified
CPT/HCPCS: 11042

== ENCOUNTER → 2023-06-25 | Outpatient (CLI) | payer MEDICARE, SELFPAY ==
[2023-06-25 10:36] LABS: Hematocrit 26.5 % (37-47); Mean Corp Hgb Conc 30.2 g/dL (32-36); Mean Corpuscular Hgb 29.7 pg (27.0-32.0); Mean Corpuscular Volume 98.5 fL (81-99); Mean Platelet Vol. 10.8 fl (6.2-12.0); Platelet Count 161 K/mm3 (150-450); RBC Distribution Width CV 16.9 % (11.6-14.6); RBC Distribution Width SD 61.3 fl (35.1-43.9); Red Blood Count 2.69 M/mm3 (4.2-5.4); White Blood Count 2.5 K/mm3 (4.4-11.0)
[2023-06-25 10:40] LABS: Scan Indicated on CBC? Y/N NO
[2023-06-25 11:12] LABS: Anion Gap 2 (5-15); BUN 50 mg/dL (7-18); BUN/Creat Ratio 21.5 RATIO (10-20); Calcium,Total 8.8 mg/dL (8.5-10.1); Chloride 115 mmol/L (98-107); Creatinine, Serum 2.33 mg/dL (0.55-1.02); EST Glomerular Filtration Rate 22 mL/min (>60); Est Glom Filt Rate - Afr Amer 26 mL/min (>60); Glucose 186 mg/dL (74-106); Potassium 5.6 mmol/L (3.5-5.1); Sodium Level 138 mmol/L (136-145)
== END | disposition home or self-care (01) ==
LOC: LAB 09:31
DX: S81.011D Laceration without foreign body, right knee, subsequent encounter (principal); E11.22 Type 2 diabetes mellitus with diabetic chronic kidney disease; I48.11 Longstanding persistent atrial fibrillation; I25.119 Atherosclerotic heart disease of native coronary artery with unspecified angina pectoris; N18.32 Chronic kidney disease, stage 3b; R00.1 Bradycardia, unspecified; R01.1 Cardiac murmur, unspecified; I89.0 Lymphedema, not elsewhere classified; I12.9 Hypertensive chronic kidney disease with stage 1 through stage 4 chronic kidney disease, or unspecified chronic kidney disease; D63.1 Anemia in chronic kidney disease; D50.9 Iron deficiency anemia, unspecified
CPT/HCPCS: 36415; 80048; 85027

== ENCOUNTER → 2023-07-09 | Outpatient (CLI) | payer MEDICARE, SELFPAY ==
[2023-07-09 10:20] LABS: Hematocrit 26.8 % (37-47); Hemoglobin 7.8 g/dL (12.0-15.0); Mean Corp Hgb Conc 29.1 g/dL (32-36); Mean Corpuscular Hgb 28.6 pg (27.0-32.0); Mean Corpuscular Volume 98.2 fL (81-99); Mean Platelet Vol. 11.3 fl (6.2-12.0); Platelet Count 160 K/mm3 (150-450); RBC Distribution Width CV 16.9 % (11.6-14.6); RBC Distribution Width SD 61.1 fl (35.1-43.9); Red Blood Count 2.73 M/mm3 (4.2-5.4); White Blood Count 3.3 K/mm3 (4.4-11.0)
[2023-07-09 10:46] LABS: Anion Gap 5 (5-15); BUN 42 mg/dL (7-18); BUN/Creat Ratio 23.6 RATIO (10-20); Calcium,Total 8.9 mg/dL (8.5-10.1); Chloride 111 mmol/L (98-107); Creatinine, Serum 1.78 mg/dL (0.55-1.02); EST Glomerular Filtration Rate 30 mL/min (>60); Est Glom Filt Rate - Afr Amer 36 mL/min (>60); Glucose 290 mg/dL (74-106); Potassium 4.6 mmol/L (3.5-5.1); Sodium Level 137 mmol/L (136-145)
== END | disposition home or self-care (01) ==
LOC: LAB 09:25
DX: S83.011A Lateral subluxation of right patella, initial encounter (principal); I25.119 Atherosclerotic heart disease of native coronary artery with unspecified angina pectoris; Z48.817 Encounter for surgical aftercare following surgery on the skin and subcutaneous tissue
CPT/HCPCS: 36415; 80048; 85027

== ENCOUNTER → 2023-07-23 | Outpatient (CLI) | payer MEDICARE, SELFPAY ==
[2023-07-23 09:38] LABS: Hematocrit 24.4 % (37-47); Hemoglobin 7.3 g/dL (12.0-15.0); Mean Corp Hgb Conc 29.9 g/dL (32-36); Mean Corpuscular Hgb 29.4 pg (27.0-32.0); Mean Corpuscular Volume 98.4 fL (81-99); Mean Platelet Vol. 11.5 fl (6.2-12.0); Platelet Count 174 K/mm3 (150-450); RBC Distribution Width CV 16.7 % (11.6-14.6); Red Blood Count 2.48 M/mm3 (4.2-5.4); White Blood Count 3.2 K/mm3 (4.4-11.0)
[2023-07-23 09:48] LABS: Anion Gap 9 (5-15); BUN 36 mg/dL (7-18); BUN/Creat Ratio 18.1 RATIO (10-20); Calcium,Total 8.2 mg/dL (8.5-10.1); Chloride 111 mmol/L (98-107); Creatinine, Serum 1.99 mg/dL (0.55-1.02); EST Glomerular Filtration Rate 26 mL/min (>60); Est Glom Filt Rate - Afr Amer 32 mL/min (>60); Glucose 120 mg/dL (74-106); Potassium 4.7 mmol/L (3.5-5.1); Sodium Level 143 mmol/L (136-145)
== END | disposition home or self-care (01) ==
LOC: LAB 08:55
DX: S81.011D Laceration without foreign body, right knee, subsequent encounter (principal); I25.119 Atherosclerotic heart disease of native coronary artery with unspecified angina pectoris
CPT/HCPCS: 36415; 80048; 85027

== ENCOUNTER 2023-07-26 15:00 | Outpatient (RCR) | payer MEDICARE, SELFPAY ==
[2023-06-27 00:17] VITALS: BP 161/50; PULSE 60; RESP 18; TEMP 35.9; BMI 46.6
[2023-06-28 14:20] VITALS: BP 157/49; PULSE 64; RESP 18; TEMP 35.8; BMI 46.6
--- NOTE | 2023-06-28 16:40 | PN.PCM_ITS ---
History of Present Illness Date of Service: 06/28/23 Chief Complaint: Open surgical hematoma ulcer right knee History of Wound: The patient is a 72 y/o woman with a history of diabetes, was admitted to the hospital with increasing redness and swelling and pain in her right knee after a mechanical fall. She is on anticoagulation and with the fall, she sustained a hematoma. When she initially came to the ED, she was given a script for Keflex and Bactrim. When she failed outpatient therapy with po antibiotics, she was admitted the next time she came to the ED. She was started on Vancomycin and Rocephin. Her WBC was 5.6. Hgb was 8.6. Her HgbA1c was 6.9 on 04/13/23. Dr. Gallegos from Orthopedics was consulted for this hematoma right knee. He proceeded with an I&D and evacuation of the hematoma. Wound care was started and a few days later he took her back to surgery to attempt closure of the wound. Her skin was thin and not very strong. He had difficulty with closure because the skin was tearing as there was too much tension from the swelling and from her obesity. So a VAC was applied and he consulted me to evaluate this patient for chronic wound care and for surgical options for wound closure. We have changed the wound care to Constantin. Today she denies fever. Her appetite is ok. Progress of Wound: Improved. Objective Data Objective Data Vital Signs: Vital Signs Temp Pulse Resp BP 96.4 F L 64 18 157/49 H 06/28/23 14:20 06/28/23 14:20 06/28/23 14:20 06/28/23 14:20 Weight: 307 lb Body Mass Index (BMI) 46.6 Prealbumin was 12.5 on 04/20/23. Encourage nutritional supplementation with protein to help the healing process. Lab / Micro Data Attestation: I reviewed the patient's lab results. Lab results narrative: HgbA1c is 6.9 from 04/13/23. For elective surgeries such as a skin graft in the future, the HgbA1c needs to be less than 8. Charges/Coding Procedures Integumentary 111xxx-113xx: 30930 Zita subq tissue 20 sq cm/< (ICD-10 - L97.819, S80.01xA, E11.9, D63.8, Z79.01, E66.9, M79.89) Debridement Note Debridement Note Wound debrided: #1 Right knee and right medial knee ulcers Laterality: Right Wound Grade/Stage: 2. Type of Debridement: Excisional debridement Anesthesia Used: 4% Lidocaine Solution Depth: Down to and including healthy tissue and in the subcutaneous layer Percentage of wound debrided: 100 Instrument Used: 3mm curette Tissue Removed: subcutaneous tissue. Severity: Fat Layer Exposed Amount of bleeding with debridement: Mild Bleeding Controlled with: Pressure, Compression and gauze and Silver Nitrate Patient tolerated procedure: Patient tolerated procedure well Post-Debridement Measurements and Additional Note: Post-Debridement Measurements/Treatment AMBREEN - Nurse 1 - General Ulcer Assessment Start: 06/28/23 14:19 Freq: Status: Active Protocol: USHA Activity Type Activity Date Activity User E-sign Co-sign Detail Recorded Client Recorded Date Recorded By Document 06/28/23 14:20 PL [id number] 06/28/23 14:21 PL 06/28/23 14:20 WC - Today's Visit Information Type of service Follow-up Visit (Physician/OPEN DEVELOPER OPERATOR ) Arrival Mode Ambulatory, Walker Transfer Assistance None Patient Identification Verified (Name & Yes ) Patient Requires Transmission-Based No Precautions Safety Precautions NA Finger Stick Blood Sugar(mg/dl) (if 200 indicated): Blood Sugar Stated by Patient Height and Weight Body Mass Index (BMI) 46.6 BMI Classification Obese Vital Signs Temperature (97.8 F-99.1 F) 96.4 F L Temperature Source Temporal Pulse Rate (60-100) 64 Respiratory Rate (12-18) 18 Blood Pressure (90/60-120/80) 157/49 H Blood Pressure Mean (mm Hg) 85 History Since Last Visit- (Skip if this is Patient's initial visit) Have you changed medications since your No last visit? Any new allergies or adverse reactions No Had a fall/change in ADL's that may No increase risk of falls Signs or symptoms of abuse and/or No neglect since last visit Have you been in the hospital since your No last visit? Has dressing in place as prescribed Yes Has compression in place as prescribed Yes Has offloadiing in place as prescribed No Experienced any changes in pain level or No management Pain Scale: 0-10 Numeric Is Patient Pain Free? Yes - Nurse 2 - General Ulcer CM Notes Start: 06/28/23 14:19 Freq: Status: Active Protocol: Activity Type Activity Date Activity User E-sign Co-sign Detail Recorded Client Recorded Date Recorded By Document 06/28/23 14:31 ALBERT Laptop 06/28/23 14:34 ALBERT Edit Result 06/28/23 14:31 JF (1) Laptop 06/28/23 14:45 JF (1) 2-right medial knee ulcer - Bleeding Controlled with Pressure => Pressure,Silver => Nitrate #1- R mid LOWER KNEE - Bleeding Controlled with Pressure => Pressure,Silver => Nitrate 06/28/23 14:31 Wound Center Nurse 2 2-right medial knee ulcer -Time 14:33 -Correct Patient Yes -Correct Side, Site, Position Yes -Correct Procedure Yes -Procedure Performed Yes -Type of Procedure Debridement -Clinical Debridement Subcutaneous -Tissue Removed Subcutaneous -Post Debridement (cm) - Length 1.0 -Post Debridement (cm) - Width 0.4 -Post Debridement (cm) - Depth 0.1 -Total Square (Post) (cm) 0.40 -Area of Debridement (cm) - Length 1.0 -Area of Debridement (cm) - Width 0.4 -Total Square (Area) (cm) 0.40 -Tunneling No -Undermining/Tunneling No -Circular Undermining No -Wound/Ulcer Outcome Not Healed -Ulcer Cleansing Rinsed/ Irrigated with Saline -Foul Odor after Cleansing No -Bioengineered Tissue No -Bleeding Controlled with Pressure,Silver Nitrate -Treatment Response Procedure Tolerated Well -Offloading No -Debridement - Subq, 1st 20sq cm Yes #1- R mid LOWER KNEE -Time 14:34 -Correct Patient Yes -Correct Side, Site, Position Yes -Correct Procedure Yes -Procedure Performed Yes -Type of Procedure Debridement -Clinical Debridement Subcutaneous -Tissue Removed Subcutaneous -Post Debridement (cm) - Length 3.9 -Post Debridement (cm) - Width 1.2 -Post Debridement (cm) - Depth 0.1 -Total Square (Post) (cm) 4.68 -Area of Debridement (cm) - Length 3.9 -Area of Debridement (cm) - Width 1.2 -Total Square (Area) (cm) 4.68 -Tunneling No -Undermining/Tunneling No -Circular Undermining No -Wound/Ulcer Outcome Not Healed -Ulcer Cleansing Rinsed/ Irrigated with Saline -Foul Odor after Cleansing No -Bioengineered Tissue No -Bleeding Controlled with Pressure,Silver Nitrate -Treatment Response Procedure Tolerated Well -Offloading No -Debridement - Subq, 1st 20sq cm No Pain Scale: 0-10 Numeric Is Patient Pain Free? Yes - Nurse 3 - General Ulcer D/C NN Start: 06/28/23 14:19 Freq: Status: Active Protocol: Activity Type Activity Date Activity User E-sign Co-sign Detail Recorded Client Recorded Date Recorded By Document 06/28/23 14:45 Laptop 06/28/23 14:46 JF Edit Result 06/28/23 14:45 JF (1) Desktop 06/28/23 14:57 BMF (1) 2-right medial knee ulcer - Mepilex Border 1 => 2 06/28/23 14:45 Wound Care Center Nurse 3 2-right medial knee ulcer -Ulcer Cleansing Rinsed/ Irrigated with Saline -Foul Odor after Cleansing No -Primary Dressing Applied Mepilex Border, Promogran Constantin Matter -Mepilex Border 2 -Promogran Constantin Matter 1 #1- R mid LOWER KNEE -Ulcer Cleansing Rinsed/ Irrigated with Saline -Foul Odor after Cleansing No -Other Covering constantin and mepilex border Right -Compression Wrap Mc Wrap -Tubular Bandage Single Layer -Size of Tubigrip Used Size F -Size F ($) 1 Left -Tubular Bandage Single Layer -Size of Tubigrip Used Size F -Size F ($) 1 Pain Scale: 0-10 Numeric Is Patient Pain Free? Yes WC - Visit Discharge Discharge Condition Stable Ambulatory Status Ambulatory Transportation Private Auto Medication Reconcilliation completed & Yes provided to patient/care provider Clinical Summary of Care Provided Yes Assessment/Plan Assessment/Plan (1) Ulcer of right knee: CODE(S): L97.819 - Non-pressure chronic ulcer of other part of right lower leg with unspecified severity (2) Hematoma of right knee region: CODE(S): S80.01XA - Contusion of right knee, initial encounter (3) DM type 2, goal HbA1c < 7%: CODE(S): E11.9 - Type 2 diabetes mellitus without complications PLAN: HgbA1c is 6.9 on 04/13/23. (4) Anemia of chronic disease: CODE(S): D63.8 - Anemia in other chronic diseases classified elsewhere (5) Anticoagulant long-term use: CODE(S): Z79.01 - long-term (current) use of anticoagulants (6) On rivaroxaban therapy: CODE(S): Z79.01 - intermediate manager (current) use of anticoagulants (7) Obesity: CODE(S): E66.9 - Obesity, unspecified (8) Leg swelling: CODE(S): M79.89 - Other specified soft tissue disorders PLAN: Plan Continue Constantin dressing changes daily. Operative cultures were negative. She was treated with IV antibiotics initially and was changed to Keflex at discharge and has finished them. Prealbumin was 12.5 on 04/20/23. Continue nutritional supplementation with protein to help the healing process. Patient is obese and has moderate swelling that can be problematic as it will slow down healing. Continue mc wrap for compression. Hgb was 7.1 at discharge. She was discharged on Iron supplementation. Hgb from 04/28/23 was 9.0. If there is a plateau during the healing process which is likely secondary to the swelling at this time, then we can always proceed with delayed closure with skin grafting. Before any future surgery, may try an advanced skin substitute graft. We discussed advanced skin substitute grafts, and she states she is interested. Followup 2 weeks.
[2023-07-12 13:44] VITALS: BP 156/49; PULSE 56; RESP 16; TEMP 35.8; BMI 46.6
--- NOTE | 2023-07-12 15:01 | PCM.WC.PN ---
History of Present Illness Date of Service: 07/12/23 Chief Complaint: Nonhealing hematoma ulcer right knee History of Wound: The patient is a 72 y/o woman with a history of diabetes, was admitted to the hospital with increasing redness and swelling and pain in her right knee after a mechanical fall. She is on anticoagulation and with the fall, she sustained a hematoma. When she initially came to the ED, she was given a script for Keflex and Bactrim. When she failed outpatient therapy with po antibiotics, she was admitted the next time she came to the ED. She was started on Vancomycin and Rocephin. Her WBC was 5.6. Hgb was 8.6. Her HgbA1c was 6.9 on 04/13/23. Dr. Gallegos from Orthopedics was consulted for this hematoma right knee. He proceeded with an I&D and evacuation of the hematoma. Wound care was started and a few days later he took her back to surgery to attempt closure of the wound. Her skin was thin and not very strong. He had difficulty with closure because the skin was tearing as there was too much tension from the swelling and from her obesity. So a VAC was applied and he consulted me to evaluate this patient for chronic wound care and for surgical options for wound closure. We have changed the wound care to Constantin after washing the ulcer first with Dakin's. Today she denies fever. Her appetite is ok. Progress of Wound: Improved. Objective Data Objective Data Vital Signs: Vital Signs Temp Pulse Resp BP O2 Del Method 96.5 F L 56 L 16 156/49 H Room Air 07/12/23 13:44 07/12/23 13:44 07/12/23 13:44 07/12/23 13:44 07/12/23 13:44 Oxygen Delivery Method Room Air Weight: 307 lb Body Mass Index (BMI) 46.6 Prealbumin was 12.5 on 04/20/23. Encourage nutritional supplementation with protein to help the healing process. Lab / Micro Data Attestation: I reviewed the patient's lab results. Lab results narrative: HgbA1c is 6.9 from 04/13/23. For elective surgeries such as a skin graft in the future, the HgbA1c needs to be less than 8. Charges/Coding Procedures Integumentary [id number]: [id number] Zita subq tissue 20 sq cm/< (ICD-10 - L97.819, S80.01xA, E11.9, D63.8, Z79.01, E66.9, M79.89) Debridement Note Debridement Note Wound debrided: #1 Right knee and right medial knee ulcers cluster Laterality: Right Wound Grade/Stage: 2. Type of Debridement: Excisional debridement Anesthesia Used: 4% Lidocaine Solution Depth: Down to and including healthy tissue and in the subcutaneous layer Percentage of wound debrided: 100 Instrument Used: 3mm curette Tissue Removed: subcutaneous tissue. Severity: Fat Layer Exposed Amount of bleeding with debridement: Mild Bleeding Controlled with: Pressure, Compression and gauze and Silver Nitrate Patient tolerated procedure: Patient tolerated procedure well Debridement Free Text: Patient had some hypergranulation tissue present which can hamper healing. After debridement, I applied silver nitrate chemical cauterization. Post-Debridement Measurements and Additional Note: Post-Debridement Measurements/Treatment - Nurse 1 - General Ulcer Assessment Start: 06/28/23 14:19 Freq: Status: Active Protocol: USHA Activity Type Activity Date Activity User E-sign Co-sign Detail Recorded Client Recorded Date Recorded By Document 06/28/23 14:20 [id number] 06/28/23 14:21 Document 07/12/23 13:44 [facility] Desktop 07/12/23 13:51 [facility] 06/28/23 07/12/23 14:20 13:44 - Today's Visit Information Type of service Follow-up Visit Follow-up Visit (Physician/ENGLISH COMPOSITION INSTRUCTOR (Physician/ENGLISH COMPOSITION INSTRUCTOR ) ) Arrival Mode Ambulatory, Ambulatory, Walker Walker Transfer Assistance None None Patient Identification Verified (Name & Yes Yes ) Patient Requires Transmission-Based No No Precautions Safety Precautions NA Finger Stick Blood Sugar(mg/dl) (if 200 indicated): Blood Sugar Stated by Patient Height and Weight Body Mass Index (BMI) 46.6 46.6 BMI Classification Obese Obese Vital Signs Temperature (97.8 F-99.1 F) 96.4 F L 96.5 F L Temperature Source Temporal Temporal Pulse Rate (60-100) 64 56 L Pulse Location Monitor Respiratory Rate (12-18) 18 16 Respiratory rate source Observation Oxygen Delivery Method Room Air Blood Pressure (90/60-120/80) 157/49 H 156/49 H Blood Pressure Mean (mm Hg) 85 84 Source Monitor Position Sitting Blood Pressure Location Right Arm History Since Last Visit- (Skip if this is Patient's initial visit) Have you changed medications since your No No last visit? Any new allergies or adverse reactions No No Had a fall/change in ADL's that may No No increase risk of falls Signs or symptoms of abuse and/or No No neglect since last visit Have you been in the hospital since your No No last visit? Has dressing in place as prescribed Yes Yes Has compression in place as prescribed Yes Yes Has offloadiing in place as prescribed No N/A Experienced any changes in pain level or No No management Left Footwear Regular Shoe Right Footwear Regular Shoe Pain Scale: 0-10 Numeric Is Patient Pain Free? Yes Yes WC - Nurse 1 - General Ulcer Measurement Start: 06/28/23 14:19 Freq: Status: Active Protocol: Activity Type Activity Date Activity User E-sign Co-sign Detail Recorded Client Recorded Date Recorded By Document 07/12/23 13:44 [facility] Desktop 07/12/23 13:51 [facility] 07/12/23 13:44 Wound Center Nurse 1 2-right medial knee ulcer cluster -Combined with other wound No -Current Size (cm) - Length 1.4 -Current Size (cm) - Width 2.8 -Current Size (cm) - Depth 0.1 -Total Square Cm 3.92 -Photo Taken No -Epithelialization Small 1-33% -Tunneling No -Undermining/Tunneling No -Circular Undermining No -Exudate Amt Medium -Exudate Type Serosanguineous -Wound Margin Flat & Intact -Granulation Amt Medium (34-66%) -Granulation Quality Red -Slough/Fibrin Yes -Necrosis Amt Medium (34-66%) -Necrotic Tissue Type Adherent Slough -Texture (Miroslava-wound Skin Appearance) Assessed, Scarring -Moisture (Miroslava-wound Skin Appearance) Assessed,Dry/ Scaly -Color (Mirolsava-wound Skin Appearance) Assessed -Temperature (Miroslava-wound Skin No Abnormality Appearance) (Pt Warm) -Tenderness on Palpation (Miroslava-wound No Skin Appearance) -Ulcer Cleansing Rinsed/ Irrigated with Saline -Foul Odor after Cleansing No -Anesthetic Used 5% Lidocaine Gel #1- R mid LOWER KNEE -Combined with other wound No -Current Size (cm) - Length 3.9 -Current Size (cm) - Width 1 -Current Size (cm) - Depth 0.1 -Total Square Cm 3.9 -Photo Taken No -Epithelialization Small 1-33% -Tunneling No -Undermining/Tunneling No -Circular Undermining No -Exudate Amt Medium -Exudate Type Serosanguineous -Wound Margin Distinct, Outline Attached -Granulation Amt Large (67-100%) -Granulation Quality Red -Slough/Fibrin Yes -Necrosis Amt Small (1-33%) -Necrotic Tissue Type Adherent Slough -Texture (Miroslava-wound Skin Appearance) Assessed, Scarring -Moisture (Miroslava-wound Skin Appearance) Assessed,Dry/ Scaly -Color (Miroslava-wound Skin Appearance) Assessed -Temperature (Miroslava-wound Skin No Abnormality Appearance) (Pt Warm) -Tenderness on Palpation (Miroslava-wound No Skin Appearance) -Ulcer Cleansing Rinsed/ Irrigated with Saline -Foul Odor after Cleansing No -Anesthetic Used 5% Lidocaine Gel Lower Limb Edema Present Yes Right Calf (cm) 54.1 Right Ankle (cm) 27.1 WC - Nurse 2 - General Ulcer CM Notes Start: 06/28/23 14:19 Freq: Status: Active Protocol: Activity Type Activity Date Activity User E-sign Co-sign Detail Recorded Client Recorded Date Recorded By Document 06/28/23 14:31 Laptop 06/28/23 14:34 Edit Result 06/28/23 14:31 (1) Laptop 06/28/23 14:45 JF Document 07/12/23 14:06 Laptop 07/12/23 14:12 (1) 2-right medial knee ulcer cluster - Bleeding Controlled with Pressure => Pressure,Silver => Nitrate #1- R mid LOWER KNEE - Bleeding Controlled with Pressure => Pressure,Silver => Nitrate 06/28/23 07/12/23 14:31 14:06 Wound Center Nurse 2 2-right medial knee ulcer cluster -Time 14:33 14:07 -Correct Patient Yes Yes -Correct Side, Site, Position Yes Yes -Correct Procedure Yes Yes -Procedure Performed Yes Yes -Type of Procedure Debridement Debridement -Clinical Debridement Subcutaneous Subcutaneous -Tissue Removed Subcutaneous Subcutaneous -Post Debridement (cm) - Length 1.0 1.7 -Post Debridement (cm) - Width 0.4 2.8 -Post Debridement (cm) - Depth 0.1 0.1 -Total Square (Post) (cm) 0.40 4.76 -Area of Debridement (cm) - Length 1.0 1.7 -Area of Debridement (cm) - Width 0.4 2.8 -Total Square (Area) (cm) 0.40 4.76 -Tunneling No No -Undermining/Tunneling No No -Circular Undermining No No -Wound/Ulcer Outcome Not Healed Not Healed -Ulcer Cleansing Rinsed/ Rinsed/ Irrigated with Irrigated with Saline Saline -Foul Odor after Cleansing No No -Bioengineered Tissue No No -Bleeding Controlled with Pressure,Silver Pressure Nitrate -Treatment Response Procedure Procedure Tolerated Well Tolerated Well -Offloading No No -Debridement - Subq, 1st 20sq cm Yes Yes #1- R mid LOWER KNEE -Time 14:34 14:07 -Correct Patient Yes Yes -Correct Side, Site, Position Yes Yes -Correct Procedure Yes Yes -Procedure Performed Yes Yes -Type of Procedure Debridement Debridement -Clinical Debridement Subcutaneous Subcutaneous -Tissue Removed Subcutaneous Subcutaneous -Post Debridement (cm) - Length 3.9 3.0 -Post Debridement (cm) - Width 1.2 1.2 -Post Debridement (cm) - Depth 0.1 0.1 -Total Square (Post) (cm) 4.68 3.60 -Area of Debridement (cm) - Length 3.9 3.0 -Area of Debridement (cm) - Width 1.2 1.2 -Total Square (Area) (cm) 4.68 3.60 -Tunneling No No -Undermining/Tunneling No No -Circular Undermining No No -Wound/Ulcer Outcome Not Healed Not Healed -Ulcer Cleansing Rinsed/ Rinsed/ Irrigated with Irrigated with Saline Saline -Foul Odor after Cleansing No No -Bioengineered Tissue No No -Bleeding Controlled with Pressure,Silver Pressure Nitrate -Treatment Response Procedure Procedure Tolerated Well Tolerated Well -Offloading No No -Debridement - Subq, 1st 20sq cm No No Pain Scale: 0-10 Numeric Is Patient Pain Free? Yes Yes - Nurse 3 - General Ulcer D/C NN Start: 06/28/23 14:19 Freq: Status: Active Protocol: Activity Type Activity Date Activity User E-sign Co-sign Detail Recorded Client Recorded Date Recorded By Document 06/28/23 14:45 ALBERT Laptop 06/28/23 14:46 ALBERT Edit Result 06/28/23 14:45 ALBERT (1) Desktop 06/28/23 14:57 BMF Document 07/12/23 14:16 [facility] Desktop 07/12/23 14:18 BMF (1) 2-right medial knee ulcer cluster - Mepilex Border 1 => 2 06/28/23 07/12/23 14:45 14:16 Wound Care Center Nurse 3 2-right medial knee ulcer cluster -Ulcer Cleansing Rinsed/ Irrigated with Saline -Foul Odor after Cleansing No -Primary Dressing Applied Mepilex Border, Mepilex Border Promogran Constantin Matter -Other Dressing silver nitrate in clinic -Other Covering drsg per dl sealer aircraft -Mepilex Border 2 1 -Promogran Constantin Matter 1 #1- R mid LOWER KNEE -Ulcer Cleansing Rinsed/ Rinsed/ Irrigated with Irrigated with Saline Saline -Foul Odor after Cleansing No No -Primary Dressing Applied Mepilex Border -Other Dressing per dl sealer aircraft -Other Covering constantin and silver nitrate mepilex border per dl sealer aircraft -Mepilex Border 0 Right -Compression Wrap Mc Wrap Mc Wrap -Tubular Bandage Single Layer Double Layer -Size of Tubigrip Used Size F Size F -Size F ($) 1 2 -Other mc to knee Left -Tubular Bandage Single Layer -Size of Tubigrip Used Size F -Size F ($) 1 Treatment Response Procedure Tolerated Well Pain Scale: 0-10 Numeric Is Patient Pain Free? Yes Yes WC - Visit Discharge Discharge Condition Stable Stable Ambulatory Status Ambulatory Ambulatory, Walker Transportation Private Auto Private Auto Medication Reconcilliation completed & Yes provided to patient/care provider Clinical Summary of Care Provided Yes Assessment/Plan Assessment/Plan (1) Ulcer of right knee: CODE(S): L97.819 - Non-pressure chronic ulcer of other part of right lower leg with unspecified severity (2) Hematoma of right knee region: CODE(S): S80.01XA - Contusion of right knee, initial encounter (3) DM type 2, goal HbA1c < 7%: CODE(S): E11.9 - Type 2 diabetes mellitus without complications PLAN: HgbA1c is 6.9 on 04/13/23. (4) Anemia of chronic disease: CODE(S): D63.8 - Anemia in other chronic diseases classified elsewhere (5) Anticoagulant long-term use: CODE(S): Z79.01 - senior care (current) use of anticoagulants (6) On rivaroxaban therapy: CODE(S): Z79.01 - senior care (current) use of anticoagulants (7) Obesity: CODE(S): E66.9 - Obesity, unspecified (8) Leg swelling: CODE(S): M79.89 - Other specified soft tissue disorders PLAN: Plan Continue Constantin dressing changes daily after first washing the ulcer with Dakin's. Operative cultures were negative. She was treated with IV antibiotics initially and was changed to Keflex at discharge and has finished them. Prealbumin was 12.5 on 04/20/23. Continue nutritional supplementation with protein to help the healing process. Patient is obese and has moderate swelling that can be problematic as it will slow down healing. Continue mc wrap for compression. Hgb was 7.1 at discharge. She was discharged on Iron supplementation. Hgb from 04/28/23 was 9.0. If there is a plateau during the healing process which is likely secondary to the swelling at this time, then we can always proceed with delayed closure with skin grafting. Before any future surgery, may try an advanced skin substitute graft. We discussed advanced skin substitute grafts, and she states she is interested. We will apply for EpiFix placental connective tissue graft. Followup one week.
[2023-07-19 14:02] VITALS: BP 159/62; PULSE 73; RESP 20; TEMP 35.8; BMI 46.6
--- NOTE | 2023-07-19 16:35 | PCM.WC.PN ---
History of Present Illness Date of Service: 07/19/23 Chief Complaint: Nonhealing hematoma ulcer right knee History of Wound: The patient is a 72 y/o woman with a history of diabetes, was admitted to the hospital with increasing redness and swelling and pain in her right knee after a mechanical fall. She is on anticoagulation and with the fall, she sustained a hematoma. When she initially came to the ED, she was given a script for Keflex and Bactrim. When she failed outpatient therapy with po antibiotics, she was admitted the next time she came to the ED. She was started on Vancomycin and Rocephin. Her WBC was 5.6. Hgb was 8.6. Her HgbA1c was 6.9 on 04/13/23. Dr. Gallegos from Orthopedics was consulted for this hematoma right knee. He proceeded with an I&D and evacuation of the hematoma. Wound care was started and a few days later he took her back to surgery to attempt closure of the wound. Her skin was thin and not very strong. He had difficulty with closure because the skin was tearing as there was too much tension from the swelling and from her obesity. So a VAC was applied and he consulted me to evaluate this patient for chronic wound care and for surgical options for wound closure. We have changed the wound care to Constantin after washing the ulcer first with Dakin's. Today she denies fever. Her appetite is ok. Progress of Wound: Ulcers are smaller. She has excoriation of the miroslava wound from tape. She has been approved for Epifix. Objective Data Objective Data Vital Signs: Vital Signs Temp Pulse Resp BP O2 Del Method 96.5 F L 73 20 H 159/62 H Room Air 07/19/23 14:02 07/19/23 14:02 07/19/23 14:02 07/19/23 14:02 07/12/23 13:44 Oxygen Delivery Method Room Air Weight: 307 lb Body Mass Index (BMI) 46.6 Charges/Coding Procedures Integumentary 150xxx-152xx: [id number] Skin sub graft trnk/arm/leg Debridement Note Debridement Note Wound debrided: #1 Right knee and right medial knee ulcers cluster Laterality: Right Wound Grade/Stage: 2. Type of Debridement: Excisional debridement Anesthesia Used: 4% Lidocaine Solution Depth: Down to and including healthy tissue and in the subcutaneous layer Percentage of wound debrided: 100 Instrument Used: 3mm curette Tissue Removed: subcutaneous tissue. Severity: Fat Layer Exposed Amount of bleeding with debridement: Mild Bleeding Controlled with: Pressure and Compression and gauze Patient tolerated procedure: Patient tolerated procedure well Post-Debridement Measurements and Additional Note: Post-Debridement Measurements/Treatment WC - Nurse 1 - General Ulcer Assessment Start: 06/28/23 14:19 Freq: Status: Active Protocol: AMBREEN.LOWEXShereen Activity Type Activity Date Activity User E-sign Co-sign Detail Recorded Client Recorded Date Recorded By Document 06/28/23 14:20 PL [id number] 06/28/23 14:21 PL Document 07/12/23 13:44 BMF Desktop 07/12/23 13:51 BMF Document 07/19/23 14:02 DL Desktop 07/19/23 14:07 DL 06/28/23 07/12/23 07/19/23 14:20 13:44 14:02 WC - Today's Visit Information Type of service Follow-up Visit Follow-up Visit Follow-up Visit (Physician/PANELBOARD OPERATOR (Physician/PANELBOARD OPERATOR (Physician/PANELBOARD OPERATOR ) ) ) Arrival Mode Ambulatory, Ambulatory, Ambulatory, Walker Walker Walker Transfer Assistance None None None Patient Identification Verified (Name & Yes Yes Yes ) Patient Requires Transmission-Based No No No Precautions Safety Precautions NA Finger Stick Blood Sugar(mg/dl) (if 200 not checked indicated): Blood Sugar Stated by Patient Height and Weight Body Mass Index (BMI) 46.6 46.6 46.6 BMI Classification Obese Obese Obese Vital Signs Temperature (97.8 F-99.1 F) 96.4 F L 96.5 F L 96.5 F L Temperature Source Temporal Temporal Temporal Pulse Rate (60-100) 64 56 L 73 Pulse Location Monitor Monitor Respiratory Rate (12-18) 18 16 20 H Respiratory rate source Observation Observation Oxygen Delivery Method Room Air Blood Pressure (90/60-120/80) 157/49 H 156/49 H 159/62 H Blood Pressure Mean (mm Hg) 85 84 94 Source Monitor Monitor Position Sitting Blood Pressure Location Right Arm History Since Last Visit- (Skip if this is Patient's initial visit) Have you changed medications since your No No No last visit? Any new allergies or adverse reactions No No No Had a fall/change in ADL's that may No No No increase risk of falls Signs or symptoms of abuse and/or No No No neglect since last visit Have you been in the hospital since your No No No last visit? Has dressing in place as prescribed Yes Yes Yes Has compression in place as prescribed Yes Yes Yes Has offloadiing in place as prescribed No N/A N/A Experienced any changes in pain level or No No Yes management Left Footwear Regular Shoe Right Footwear Regular Shoe Pain Scale: 0-10 Numeric Is Patient Pain Free? Yes Yes Yes WC - Nurse 1 - General Ulcer Measurement Start: 06/28/23 14:19 Freq: Status: Active Protocol: Activity Type Activity Date Activity User E-sign Co-sign Detail Recorded Client Recorded Date Recorded By Document 07/12/23 13:44 BMF Desktop 07/12/23 13:51 BMF Document 07/19/23 14:02 DL Desktop 07/19/23 14:07 DL 07/12/23 07/19/23 13:44 14:02 Wound Center Nurse 1 2-right medial knee ulcer cluster -Combined with other wound No -Current Size (cm) - Length 1.4 0.7 -Current Size (cm) - Width 2.8 0.9 -Current Size (cm) - Depth 0.1 0.2 -Total Square Cm 3.92 0.63 -Photo Taken No -Epithelialization Small 1-33% -Tunneling No -Undermining/Tunneling No -Circular Undermining No -Exudate Amt Medium Small -Exudate Type Serosanguineous Serosanguineous -Wound Margin Flat & Intact Indistinct, Non -Visible -Granulation Amt Medium (34-66%) Small (1-33%) -Granulation Quality Red [place] -Slough/Fibrin Yes -Necrosis Amt Medium (34-66%) None Present (0 %) -Necrotic Tissue Type Adherent Slough -Structure Exposed N/A -Texture (Miroslava-wound Skin Appearance) Assessed, Scarring,Rash Scarring -Moisture (Miroslava-wound Skin Appearance) Assessed,Dry/ Dry/Scaly Scaly -Color (Miroslava-wound Skin Appearance) Assessed Hemosiderin Staining -Temperature (Miroslava-wound Skin No Abnormality No Abnormality Appearance) (Pt Warm) (Pt Warm) -Tenderness on Palpation (Miroslava-wound No No Skin Appearance) -Ulcer Cleansing Rinsed/ Soap and Water Irrigated with Saline -Foul Odor after Cleansing No No -Anesthetic Used 5% Lidocaine 5% Lidocaine Gel Gel #1- R mid LOWER KNEE -Combined with other wound No -Current Size (cm) - Length 3.9 0.7 -Current Size (cm) - Width 1 0.9 -Current Size (cm) - Depth 0.1 0.2 -Total Square Cm 3.9 0.63 -Photo Taken No -Epithelialization Small 1-33% -Tunneling No -Undermining/Tunneling No -Circular Undermining No -Exudate Amt Medium Small -Exudate Type Serosanguineous Serosanguineous -Wound Margin Distinct, Distinct, Outline Outline Attached Attached -Granulation Amt Large (67-100%) Small (1-33%) -Granulation Quality Red Red -Slough/Fibrin Yes -Necrosis Amt Small (1-33%) None Present (0 %) -Necrotic Tissue Type Adherent Slough -Structure Exposed N/A -Texture (Miroslava-wound Skin Appearance) Assessed, Scarring,Rash Scarring -Moisture (Miroslava-wound Skin Appearance) Assessed,Dry/ Dry/Scaly Scaly -Color (Miroslava-wound Skin Appearance) Assessed Hemosiderin Staining -Temperature (Miroslava-wound Skin No Abnormality No Abnormality Appearance) (Pt Warm) (Pt Warm) -Tenderness on Palpation (Miroslava-wound No No Skin Appearance) -Ulcer Cleansing Rinsed/ Soap and Water Irrigated with Saline -Foul Odor after Cleansing No -Anesthetic Used 5% Lidocaine 5% Lidocaine Gel Gel,Cetacaine Lower Limb Edema Present Yes Right Calf (cm) 54.1 51 Right Ankle (cm) 27.1 22.6 WC - Nurse 2 - General Ulcer CM Notes Start: 06/28/23 14:19 Freq: Status: Active Protocol: Activity Type Activity Date Activity User E-sign Co-sign Detail Recorded Client Recorded Date Recorded By Document 06/28/23 14:31 JF Laptop 06/28/23 14:34 Edit Result 06/28/23 14:31 JF (1) Laptop 06/28/23 14:45 JF Document 07/12/23 14:06 JF Laptop 07/12/23 14:12 JF Document 07/19/23 14:32 Desktop 07/19/23 14:36 JF (1) 2-right medial knee ulcer cluster - Bleeding Controlled with Pressure => Pressure,Silver => Nitrate #1- R mid LOWER KNEE - Bleeding Controlled with Pressure => Pressure,Silver => Nitrate 06/28/23 07/12/23 07/19/23 14:31 14:06 14:32 Wound Center Nurse 2 2-right medial knee ulcer cluster -Time 14:33 14:07 14:33 -Correct Patient Yes Yes Yes -Correct Side, Site, Position Yes Yes Yes -Correct Procedure Yes Yes Yes -Procedure Performed Yes Yes Yes -Type of Procedure Debridement Debridement Debridement -Clinical Debridement Subcutaneous Subcutaneous Subcutaneous -Tissue Removed Subcutaneous Subcutaneous Subcutaneous -Post Debridement (cm) - Length 1.0 1.7 1.0 -Post Debridement (cm) - Width 0.4 2.8 1.3 -Post Debridement (cm) - Depth 0.1 0.1 0.1 -Total Square (Post) (cm) 0.40 4.76 1.30 -Area of Debridement (cm) - Length 1.0 1.7 1.0 -Area of Debridement (cm) - Width 0.4 2.8 1.3 -Total Square (Area) (cm) 0.40 4.76 1.30 -Tunneling No No No -Undermining/Tunneling No No No -Circular Undermining No No No -Wound/Ulcer Outcome Not Healed Not Healed Not Healed -Ulcer Cleansing Rinsed/ Rinsed/ Rinsed/ Irrigated with Irrigated with Irrigated with Saline Saline Saline -Foul Odor after Cleansing No No No -Bioengineered Tissue No No No -Bleeding Controlled with Pressure,Silver Pressure Pressure Nitrate -Treatment Response Procedure Procedure Procedure Tolerated Well Tolerated Well Tolerated Well -Offloading No No No -Debridement - Subq, 1st 20sq cm Yes Yes Yes #1- R mid LOWER KNEE -Time 14:34 14:07 14:33 -Correct Patient Yes Yes Yes -Correct Side, Site, Position Yes Yes Yes -Correct Procedure Yes Yes Yes -Procedure Performed Yes Yes Yes -Type of Procedure Debridement Debridement Debridement -Clinical Debridement Subcutaneous Subcutaneous Subcutaneous -Tissue Removed Subcutaneous Subcutaneous Subcutaneous -Post Debridement (cm) - Length 3.9 3.0 2.8 -Post Debridement (cm) - Width 1.2 1.2 1.2 -Post Debridement (cm) - Depth 0.1 0.1 0.1 -Total Square (Post) (cm) 4.68 3.60 3.36 -Area of Debridement (cm) - Length 3.9 3.0 2.8 -Area of Debridement (cm) - Width 1.2 1.2 1.2 -Total Square (Area) (cm) 4.68 3.60 3.36 -Tunneling No No No -Undermining/Tunneling No No No -Circular Undermining No No No -Wound/Ulcer Outcome Not Healed Not Healed Not Healed -Ulcer Cleansing Rinsed/ Rinsed/ Rinsed/ Irrigated with Irrigated with Irrigated with Saline Saline Saline -Foul Odor after Cleansing No No No -Bioengineered Tissue No No Yes -Type of Bioengineered Tissue Epifix -Expiration Date 02/26/28 -Product Lot Number [id number] -Percent Used 100 -Lot number of Saline Used [id number] -Bleeding Controlled with Pressure,Silver Pressure Pressure Nitrate -Treatment Response Procedure Procedure Procedure Tolerated Well Tolerated Well Tolerated Well -Offloading No No No -Debridement - Subq, 1st 20sq cm No No No -Apply Skin Sub - 1st 25 sq cm - Legs 1 -Epifix (per sq cm) 4 Pain Scale: 0-10 Numeric Is Patient Pain Free? Yes Yes Yes WC - Nurse 3 - General Ulcer D/C NN Start: 06/28/23 14:19 Freq: Status: Active Protocol: Activity Type Activity Date Activity User E-sign Co-sign Detail Recorded Client Recorded Date Recorded By Document 06/28/23 14:45 Laptop 06/28/23 14:46 Edit Result 06/28/23 14:45 (1) Desktop 06/28/23 14:57 [facility] Document 07/12/23 14:16 [facility] Desktop 07/12/23 14:18 [facility] Document 07/19/23 15:00 [facility] Desktop 07/19/23 15:01 BM (1) 2-right medial knee ulcer cluster - Mepilex Border 1 => 2 06/28/23 07/12/23 07/19/23 14:45 14:16 15:00 Wound Care Center Nurse 3 2-right medial knee ulcer cluster -Ulcer Cleansing Rinsed/ Irrigated with Saline -Foul Odor after Cleansing No -Primary Dressing Applied Mepilex Border, Mepilex Border Mepilex Border Promogran Constantin Matter -Other Dressing silver nitrate EPIFIX in clinic -Primary Dressing Covered/Secured with Dry Gauze -Other Covering drsg per dl underwriting support specialist -Mepilex Border 2 1 1 -Promogran Constantin Matter 1 #1- R mid LOWER KNEE -Ulcer Cleansing Rinsed/ Rinsed/ Irrigated with Irrigated with Saline Saline -Foul Odor after Cleansing No No -Primary Dressing Applied Mepilex Border Mepilex Border -Other Dressing per dl underwriting support specialist EPIFIX -Other Covering constantin and silver nitrate ADAPTIC TO mepilex border per dl underwriting support specialist SURROUNDING MIROSLAVA WOUND/DRY SKIN -Mepilex Border 0 0 BLE -Compression Wrap Mc Wrap -Tubular Bandage Single Layer -Size of Tubigrip Used Size F -Size F ($) 2 -Other SENT AN XTRA Right -Compression Wrap Mc Wrap Mc Wrap -Tubular Bandage Single Layer Double Layer -Size of Tubigrip Used Size F Size F -Size F ($) 1 2 -Other mc to knee Left -Tubular Bandage Single Layer -Size of Tubigrip Used Size F -Size F ($) 1 Treatment Response Procedure Procedure Tolerated Well Tolerated Well Pain Scale: 0-10 Numeric Is Patient Pain Free? Yes Yes Yes WC - Visit Discharge Discharge Condition Stable Stable Stable Ambulatory Status Ambulatory Ambulatory, Ambulatory, Walker Walker Transportation Private Auto Private Auto Private Auto Medication Reconcilliation completed & Yes provided to patient/care provider Clinical Summary of Care Provided Yes Assessment/Plan Assessment/Plan (1) Ulcer of right knee: CODE(S): L97.819 - Non-pressure chronic ulcer of other part of right lower leg with unspecified severity (2) Hematoma of right knee region: CODE(S): S80.01XA - Contusion of right knee, initial encounter (3) DM type 2, goal HbA1c < 7%: CODE(S): E11.9 - Type 2 diabetes mellitus without complications PLAN: HgbA1c is 6.9 on 04/13/23. 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 Wound care - Epifix #1 applied to right mid knee ulcer. 100% of the product was used. Covered with wound veil and secured with steri strips. Cover with Mepilex dressing. She is to keep this wound dry. Change outer dressing above the wound veil as needed. Right medial knee ulcer place Constantin and cover with the Mepilex dressing. Compression - Single tubigrip bilaterally topped with MC wrap. Operative cultures were negative. She was treated with IV antibiotics initially and was changed to Keflex at discharge and has finished them. Prealbumin was 12.5 on 04/20/23. Continue nutritional supplementation with protein to help the healing process. Patient is obese and has moderate swelling that can be problematic as it will slow down healing. Hgb was 7.1 at discharge. She was discharged on Iron supplementation. Hgb from 04/28/23 was 9.0. If there is a plateau during the healing process which is likely secondary to the swelling at this time, then we can always proceed with delayed closure with skin grafting. Before any future surgery, will try Epifix,an advanced skin substitute graft. Followup one week.
[2023-07-26 15:01] VITALS: BMI 46.6
--- NOTE | 2023-07-26 16:54 | PCM.WC.PN ---
History of Present Illness Date of Service: 07/26/23 Chief Complaint: Nonhealing hematoma ulcer right knee History of Wound: The patient is a 72 y/o woman with a history of diabetes, was admitted to the hospital with increasing redness and swelling and pain in her right knee after a mechanical fall. She is on anticoagulation and with the fall, she sustained a hematoma. When she initially came to the ED, she was given a script for Keflex and Bactrim. When she failed outpatient therapy with po antibiotics, she was admitted the next time she came to the ED. She was started on Vancomycin and Rocephin. Her WBC was 5.6. Hgb was 8.6. Her HgbA1c was 6.9 on 04/13/23. Dr. Gallegos from Orthopedics was consulted for this hematoma right knee. He proceeded with an I&D and evacuation of the hematoma. Wound care was started and a few days later he took her back to surgery to attempt closure of the wound. Her skin was thin and not very strong. He had difficulty with closure because the skin was tearing as there was too much tension from the swelling and from her obesity. So a VAC was applied and he consulted me to evaluate this patient for chronic wound care and for surgical options for wound closure. We have changed the wound care to Constantin after washing the ulcer first with Dakin's. Patient was interested in advanced skin substitute grafts. We have placed EpiFix #1. Today we will place EpiFix #2. Today she denies fever. Her appetite is ok. Progress of Wound: Ulcers continue to improve. She has excoriation of the miroslava wound from tape. She has been approved for Epifix and tolerated EpiFix placement #1. Objective Data Objective Data Vital Signs: Vital Signs Temp Pulse Resp BP O2 Del Method 96.5 F L 73 20 H 159/62 H Room Air 07/19/23 14:02 07/19/23 14:02 07/19/23 14:02 07/19/23 14:02 07/12/23 13:44 Oxygen Delivery Method Room Air Weight: 307 lb Body Mass Index (BMI) 46.6 Charges/Coding Procedures Integumentary 150xxx-152xx: [id number] Skin sub graft trnk/arm/leg (ICD-10 - L97.819, S80.01xA, E11.9, D63.8, Z79.01, E66.9, M79.89) Debridement Note Debridement Note Wound debrided: #1 Right knee and right medial knee ulcers cluster Laterality: Right Wound Grade/Stage: 2. Type of Debridement: Excisional debridement Anesthesia Used: 4% Lidocaine Solution Depth: Down to and including healthy tissue and in the subcutaneous layer Percentage of wound debrided: 100 Instrument Used: 3mm curette Tissue Removed: subcutaneous tissue. Severity: Fat Layer Exposed Bleeding Controlled with: Pressure and Compression and gauze Patient tolerated procedure: Patient tolerated procedure well Debridement Free Text: EpiFix placement #2 today. Expiration - 03/27/28. Lot Number - [id number]. Percent Used - 100%. Lot Number for Saline - [id number]. Post-Debridement Measurements and Additional Note: Post-Debridement Measurements/Treatment WC - Nurse 1 - General Ulcer Assessment Start: 06/28/23 14:19 Freq: Status: Active Protocol: WC.LOWEXT Activity Type Activity Date Activity User E-sign Co-sign Detail Recorded Client Recorded Date Recorded By Document 06/28/23 14:20 PL [id number] 06/28/23 14:21 PL Document 07/12/23 13:44 BMF Desktop 07/12/23 13:51 BMF Document 07/19/23 14:02 DL Desktop 07/19/23 14:07 DL Document 07/26/23 15:01 BMF Desktop 07/26/23 15:16 BMF 06/28/23 07/12/23 07/19/23 14:20 13:44 14:02 WC - Today's Visit Information Type of service Follow-up Visit Follow-up Visit Follow-up Visit (Physician/CONTINUOUS PILLOWCASE CUTTER (Physician/CONTINUOUS PILLOWCASE CUTTER (Physician/CONTINUOUS PILLOWCASE CUTTER ) ) ) Arrival Mode Ambulatory, Ambulatory, Ambulatory, Walker Walker Walker Transfer Assistance None None None Patient Identification Verified (Name & Yes Yes Yes ) Patient Requires Transmission-Based No No No Precautions Safety Precautions NA Finger Stick Blood Sugar(mg/dl) (if 200 not checked indicated): Blood Sugar Stated by Patient Height and Weight Body Mass Index (BMI) 46.6 46.6 46.6 BMI Classification Obese Obese Obese Vital Signs Temperature (97.8 F-99.1 F) 96.4 F L 96.5 F L 96.5 F L Temperature Source Temporal Temporal Temporal Pulse Rate (60-100) 64 56 L 73 Pulse Location Monitor Monitor Respiratory Rate (12-18) 18 16 20 H Respiratory rate source Observation Observation Oxygen Delivery Method Room Air Blood Pressure (90/60-120/80) 157/49 H 156/49 H 159/62 H Blood Pressure Mean (mm Hg) 85 84 94 Source Monitor Monitor Position Sitting Blood Pressure Location Right Arm History Since Last Visit- (Skip if this is Patient's initial visit) Have you changed medications since your No No No last visit? Any new allergies or adverse reactions No No No Had a fall/change in ADL's that may No No No increase risk of falls Signs or symptoms of abuse and/or No No No neglect since last visit Have you been in the hospital since your No No No last visit? Has dressing in place as prescribed Yes Yes Yes Has compression in place as prescribed Yes Yes Yes Has offloadiing in place as prescribed No N/A N/A Experienced any changes in pain level or No No Yes management Left Footwear Regular Shoe Right Footwear Regular Shoe Pain Scale: 0-10 Numeric Is Patient Pain Free? Yes Yes Yes 07/26/23 15:01 WC - Today's Visit Information Type of service Arrival Mode Transfer Assistance Patient Identification Verified (Name & ) Patient Requires Transmission-Based Precautions Safety Precautions Finger Stick Blood Sugar(mg/dl) (if indicated): Blood Sugar Height and Weight Body Mass Index (BMI) 46.6 BMI Classification Obese Vital Signs Temperature (97.8 F-99.1 F) Temperature Source Pulse Rate (60-100) Pulse Location Respiratory Rate (12-18) Respiratory rate source Oxygen Delivery Method Blood Pressure (90/60-120/80) Blood Pressure Mean (mm Hg) Source Position Blood Pressure Location History Since Last Visit- (Skip if this is Patient's initial visit) Have you changed medications since your last visit? Any new allergies or adverse reactions Had a fall/change in ADL's that may increase risk of falls Signs or symptoms of abuse and/or neglect since last visit Have you been in the hospital since your last visit? Has dressing in place as prescribed Has compression in place as prescribed Has offloadiing in place as prescribed Experienced any changes in pain level or management Left Footwear Right Footwear Pain Scale: 0-10 Numeric Is Patient Pain Free? Yes - Nurse 1 - General Ulcer Measurement Start: 06/28/23 14:19 Freq: Status: Active Protocol: Activity Type Activity Date Activity User E-sign Co-sign Detail Recorded Client Recorded Date Recorded By Document 07/12/23 13:44 BMF Desktop 07/12/23 13:51 BMF Document 07/19/23 14:02 DL Desktop 07/19/23 14:07 DL Document 07/26/23 15:01 BMF Desktop 07/26/23 15:16 BMF 07/12/23 07/19/23 07/26/23 13:44 14:02 15:01 Wound Center Nurse 1 #3- R LAT KNEE -Combined with other wound No -Current Size (cm) - Length 0.5 -Current Size (cm) - Width 1.5 -Current Size (cm) - Depth 0.2 -Total Square Cm 0.75 -Date of Last Picture (Recall this 07/26/23 field) -Photo Taken Yes -Epithelialization None Present -Tunneling No -Undermining/Tunneling No -Circular Undermining No -Exudate Amt Medium -Exudate Type Serosanguineous -Wound Margin Distinct, Outline Attached -Granulation Amt Small (1-33%) -Granulation Quality Red -Slough/Fibrin Yes -Necrosis Amt Large (67-100%) -Necrotic Tissue Type Adherent Slough -Texture (Miroslava-wound Skin Appearance) Assessed, Scarring -Moisture (Miroslava-wound Skin Appearance) Assessed,Dry/ Scaly -Color (Miroslava-wound Skin Appearance) Assessed -Temperature (Miroslava-wound Skin No Abnormality Appearance) (Pt Warm) -Tenderness on Palpation (Miroslava-wound No Skin Appearance) -Ulcer Cleansing Soap and Water -Foul Odor after Cleansing No -Anesthetic Used 5% Lidocaine Gel 2-right medial knee ulcer cluster -Combined with other wound No No -Current Size (cm) - Length 1.4 0.7 0.1 -Current Size (cm) - Width 2.8 0.9 0.1 -Current Size (cm) - Depth 0.1 0.2 0.1 -Total Square Cm 3.92 0.63 0.01 -Photo Taken No -Epithelialization Small 1-33% Large 67-100% -Tunneling No No -Undermining/Tunneling No No -Circular Undermining No No -Exudate Amt Medium Small Medium -Exudate Type Serosanguineous Serosanguineous Serosanguineous -Wound Margin Flat & Intact Indistinct, Non Distinct, -Visible Outline Attached -Granulation Amt Medium (34-66%) Small (1-33%) Large (67-100%) -Granulation Quality Red [place] Red -Slough/Fibrin Yes Yes -Necrosis Amt Medium (34-66%) None Present (0 Small (1-33%) %) -Necrotic Tissue Type Adherent Slough Adherent Slough -Structure Exposed N/A -Texture (Miroslava-wound Skin Appearance) Assessed, Scarring,Rash Assessed, Scarring Scarring -Moisture (Miroslava-wound Skin Appearance) Assessed,Dry/ Dry/Scaly Assessed Scaly -Color (Miroslava-wound Skin Appearance) Assessed Hemosiderin Assessed Staining -Temperature (Miroslava-wound Skin No Abnormality No Abnormality No Abnormality Appearance) (Pt Warm) (Pt Warm) (Pt Warm) -Tenderness on Palpation (Miroslava-wound No No No Skin Appearance) -Ulcer Cleansing Rinsed/ Soap and Water Soap and Water Irrigated with Saline -Foul Odor after Cleansing No No No -Anesthetic Used 5% Lidocaine 5% Lidocaine 5% Lidocaine Gel Gel Gel #1- R mid LOWER KNEE -Combined with other wound No No -Current Size (cm) - Length 3.9 0.7 2 -Current Size (cm) - Width 1 0.9 0.8 -Current Size (cm) - Depth 0.1 0.2 0.1 -Total Square Cm 3.9 0.63 1.6 -Photo Taken No -Epithelialization Small 1-33% Small 1-33% -Tunneling No No -Undermining/Tunneling No No -Circular Undermining No No -Exudate Amt Medium Small Medium -Exudate Type Serosanguineous Serosanguineous Serosanguineous -Wound Margin Distinct, Distinct, Distinct, Outline Outline Outline Attached Attached Attached -Granulation Amt Large (67-100%) Small (1-33%) Small (1-33%) -Granulation Quality Red Red Red -Slough/Fibrin Yes Yes -Necrosis Amt Small (1-33%) None Present (0 Large (67-100%) %) -Necrotic Tissue Type Adherent Slough Adherent Slough -Structure Exposed N/A -Texture (Miroslava-wound Skin Appearance) Assessed, Scarring,Rash Assessed, Scarring Excoriation, Scarring -Moisture (Miroslava-wound Skin Appearance) Assessed,Dry/ Dry/Scaly Assessed,Dry/ Scaly Scaly -Color (Miroslava-wound Skin Appearance) Assessed Hemosiderin Assessed Staining -Temperature (Miroslava-wound Skin No Abnormality No Abnormality No Abnormality Appearance) (Pt Warm) (Pt Warm) (Pt Warm) -Tenderness on Palpation (Miroslava-wound No No No Skin Appearance) -Ulcer Cleansing Rinsed/ Soap and Water Soap and Water Irrigated with Saline -Foul Odor after Cleansing No No -Anesthetic Used 5% Lidocaine 5% Lidocaine 5% Lidocaine Gel Gel,Cetacaine Gel Lower Limb Edema Present Yes Yes Right Calf (cm) 54.1 51 49 Right Ankle (cm) 27.1 22.6 26.6 WC - Nurse 2 - General Ulcer CM Notes Start: 06/28/23 14:19 Freq: Status: Active Protocol: Activity Type Activity Date Activity User E-sign Co-sign Detail Recorded Client Recorded Date Recorded By Document 06/28/23 14:31 Laptop 06/28/23 14:34 Edit Result 06/28/23 14:31 (1) Laptop 06/28/23 14:45 Document 07/12/23 14:06 Laptop 07/12/23 14:12 Document 07/19/23 14:32 Desktop 07/19/23 14:36 Document 07/26/23 15:45 Laptop 07/26/23 15:48 JF (1) 2-right medial knee ulcer cluster - Bleeding Controlled with Pressure => Pressure,Silver => Nitrate #1- R mid LOWER KNEE - Bleeding Controlled with Pressure => Pressure,Silver => Nitrate 06/28/23 07/12/23 07/19/23 14:31 14:06 14:32 Wound Center Nurse 2 #3- R LAT KNEE -Time -Correct Patient -Correct Side, Site, Position -Correct Procedure -Procedure Performed -Type of Procedure -Clinical Debridement -Tissue Removed -Post Debridement (cm) - Length -Post Debridement (cm) - Width -Post Debridement (cm) - Depth -Total Square (Post) (cm) -Area of Debridement (cm) - Length -Area of Debridement (cm) - Width -Total Square (Area) (cm) -Tunneling -Undermining/Tunneling -Circular Undermining -Wound/Ulcer Outcome -Ulcer Cleansing -Foul Odor after Cleansing -Bioengineered Tissue -Bleeding Controlled with -Treatment Response -Offloading -Debridement - Subq, 1st 20sq cm 2-right medial knee ulcer cluster -Time 14:33 14:07 14:33 -Correct Patient Yes Yes Yes -Correct Side, Site, Position Yes Yes Yes -Correct Procedure Yes Yes Yes -Procedure Performed Yes Yes Yes -Type of Procedure Debridement Debridement Debridement -Clinical Debridement Subcutaneous Subcutaneous Subcutaneous -Tissue Removed Subcutaneous Subcutaneous Subcutaneous -Post Debridement (cm) - Length 1.0 1.7 1.0 -Post Debridement (cm) - Width 0.4 2.8 1.3 -Post Debridement (cm) - Depth 0.1 0.1 0.1 -Total Square (Post) (cm) 0.40 4.76 1.30 -Area of Debridement (cm) - Length 1.0 1.7 1.0 -Area of Debridement (cm) - Width 0.4 2.8 1.3 -Total Square (Area) (cm) 0.40 4.76 1.30 -Tunneling No No No -Undermining/Tunneling No No No -Circular Undermining No No No -Wound/Ulcer Outcome Not Healed Not Healed Not Healed -Ulcer Cleansing Rinsed/ Rinsed/ Rinsed/ Irrigated with Irrigated with Irrigated with Saline Saline Saline -Foul Odor after Cleansing No No No -Bioengineered Tissue No No No -Bleeding Controlled with Pressure,Silver Pressure Pressure Nitrate -Treatment Response Procedure Procedure Procedure Tolerated Well Tolerated Well Tolerated Well -Offloading No No No -Debridement - Subq, 1st 20sq cm Yes Yes Yes #1- R mid LOWER KNEE -Time 14:34 14:07 14:33 -Correct Patient Yes Yes Yes -Correct Side, Site, Position Yes Yes Yes -Correct Procedure Yes Yes Yes -Procedure Performed Yes Yes Yes -Type of Procedure Debridement Debridement Debridement -Clinical Debridement Subcutaneous Subcutaneous Subcutaneous -Tissue Removed Subcutaneous Subcutaneous Subcutaneous -Post Debridement (cm) - Length 3.9 3.0 2.8 -Post Debridement (cm) - Width 1.2 1.2 1.2 -Post Debridement (cm) - Depth 0.1 0.1 0.1 -Total Square (Post) (cm) 4.68 3.60 3.36 -Area of Debridement (cm) - Length 3.9 3.0 2.8 -Area of Debridement (cm) - Width 1.2 1.2 1.2 -Total Square (Area) (cm) 4.68 3.60 3.36 -Tunneling No No No -Undermining/Tunneling No No No -Circular Undermining No No No -Wound/Ulcer Outcome Not Healed Not Healed Not Healed -Ulcer Cleansing Rinsed/ Rinsed/ Rinsed/ Irrigated with Irrigated with Irrigated with Saline Saline Saline -Foul Odor after Cleansing No No No -Bioengineered Tissue No No Yes -Type of Bioengineered Tissue Epifix -Expiration Date 02/26/28 -Product Lot Number [id number] -Percent Used 100 -Lot number of Saline Used [id number] -Bleeding Controlled with Pressure,Silver Pressure Pressure Nitrate -Treatment Response Procedure Procedure Procedure Tolerated Well Tolerated Well Tolerated Well -Offloading No No No -Debridement - Subq, 1st 20sq cm No No No -Apply Skin Sub - 1st 25 sq cm - Legs 1 -Epifix (per sq cm) 4 -Epifix 18mm Disc Pain Scale: 0-10 Numeric Is Patient Pain Free? Yes Yes Yes 07/26/23 15:45 Wound Center Nurse 2 #3- R LAT KNEE -Time 15:45 -Correct Patient Yes -Correct Side, Site, Position Yes -Correct Procedure Yes -Procedure Performed Yes -Type of Procedure Debridement -Clinical Debridement Subcutaneous -Tissue Removed Subcutaneous -Post Debridement (cm) - Length 0.6 -Post Debridement (cm) - Width 1.5 -Post Debridement (cm) - Depth 0.2 -Total Square (Post) (cm) 0.90 -Area of Debridement (cm) - Length 0.6 -Area of Debridement (cm) - Width 1.5 -Total Square (Area) (cm) 0.90 -Tunneling No -Undermining/Tunneling No -Circular Undermining No -Wound/Ulcer Outcome Not Healed -Ulcer Cleansing Rinsed/ Irrigated with Saline -Foul Odor after Cleansing No -Bioengineered Tissue No -Bleeding Controlled with Pressure -Treatment Response Procedure Tolerated Well -Offloading No -Debridement - Subq, 1st 20sq cm Yes 2-right medial knee ulcer cluster -Time 15:46 -Correct Patient Yes -Correct Side, Site, Position Yes -Correct Procedure Yes -Procedure Performed Yes -Type of Procedure Debridement -Clinical Debridement Subcutaneous -Tissue Removed Subcutaneous -Post Debridement (cm) - Length 0.2 -Post Debridement (cm) - Width 0.2 -Post Debridement (cm) - Depth 0.1 -Total Square (Post) (cm) 0.04 -Area of Debridement (cm) - Length 0.2 -Area of Debridement (cm) - Width 0.2 -Total Square (Area) (cm) 0.04 -Tunneling No -Undermining/Tunneling No -Circular Undermining No -Wound/Ulcer Outcome Not Healed -Ulcer Cleansing Rinsed/ Irrigated with Saline -Foul Odor after Cleansing No -Bioengineered Tissue No -Bleeding Controlled with Pressure -Treatment Response Procedure Tolerated Well -Offloading No -Debridement - Subq, 1st 20sq cm No #1- R mid LOWER KNEE -Time 15:46 -Correct Patient Yes -Correct Side, Site, Position Yes -Correct Procedure Yes -Procedure Performed Yes -Type of Procedure Debridement -Clinical Debridement Subcutaneous -Tissue Removed Subcutaneous -Post Debridement (cm) - Length 2.1 -Post Debridement (cm) - Width 0.8 -Post Debridement (cm) - Depth 0.1 -Total Square (Post) (cm) 1.68 -Area of Debridement (cm) - Length 2.1 -Area of Debridement (cm) - Width 0.8 -Total Square (Area) (cm) 1.68 -Tunneling No -Undermining/Tunneling No -Circular Undermining No -Wound/Ulcer Outcome Not Healed -Ulcer Cleansing Rinsed/ Irrigated with Saline -Foul Odor after Cleansing No -Bioengineered Tissue Yes -Type of Bioengineered Tissue Epifix 18mm Disc -Expiration Date 03/27/28 -Product Lot Number [id number] -Percent Used 100 -Lot number of Saline Used [id number] -Bleeding Controlled with Pressure -Treatment Response Procedure Tolerated Well -Offloading No -Debridement - Subq, 1st 20sq cm No -Apply Skin Sub - 1st 25 sq cm - Legs 1 -Epifix (per sq cm) -Epifix 18mm Disc 3 Pain Scale: 0-10 Numeric Is Patient Pain Free? Yes WC - Nurse 3 - General Ulcer D/C NN Start: 06/28/23 14:19 Freq: Status: Active Protocol: Activity Type Activity Date Activity User E-sign Co-sign Detail Recorded Client Recorded Date Recorded By Document 06/28/23 14:45 JF Laptop 06/28/23 14:46 JF Edit Result 06/28/23 14:45 JF (1) Desktop 06/28/23 14:57 BMF Document 07/12/23 14:16 BMF Desktop 07/12/23 14:18 BMF Document 07/19/23 15:00 BMF Desktop 07/19/23 15:01 BMF Document 07/26/23 16:02 BMF Desktop 07/26/23 16:03 BMF (1) 2-right medial knee ulcer cluster - Mepilex Border 1 => 2 06/28/23 07/12/23 07/19/23 14:45 14:16 15:00 Wound Care Center Nurse 3 #3- R LAT KNEE -Ulcer Cleansing -Foul Odor after Cleansing -Primary Dressing Applied -Other Dressing -Primary Dressing Covered/Secured with -Aquacel Extra 2-right medial knee ulcer cluster -Ulcer Cleansing Rinsed/ Irrigated with Saline -Foul Odor after Cleansing No -Primary Dressing Applied Mepilex Border, Mepilex Border Mepilex Border Promogran Constantin Matter -Other Dressing silver nitrate EPIFIX in clinic -Primary Dressing Covered/Secured with Dry Gauze -Other Covering drsg per dl shift production supervisor -Aquacel Extra -Mepilex Border 2 1 1 -Promogran Constantin Matter 1 #1- R mid LOWER KNEE -Ulcer Cleansing Rinsed/ Rinsed/ Irrigated with Irrigated with Saline Saline -Foul Odor after Cleansing No No -Primary Dressing Applied Mepilex Border Mepilex Border -Other Dressing per dl shift production supervisor EPIFIX -Primary Dressing Covered/Secured with -Other Covering constantin and silver nitrate ADAPTIC TO mepilex border per dl shift production supervisor SURROUNDING MIROSLAVA WOUND/DRY SKIN -Aquacel Extra -Mepilex Border 0 0 BLE -Compression Wrap Mc Wrap -Tubular Bandage Single Layer -Size of Tubigrip Used Size F -Size F ($) 2 -Other SENT AN XTRA Right -Compression Wrap Mc Wrap Mc Wrap -Tubular Bandage Single Layer Double Layer -Size of Tubigrip Used Size F Size F -Size F ($) 1 2 -Other mc to knee Left -Tubular Bandage Single Layer -Size of Tubigrip Used Size F -Size F ($) 1 Treatment Response Procedure Procedure Tolerated Well Tolerated Well Pain Scale: 0-10 Numeric Is Patient Pain Free? Yes Yes Yes WC - Visit Discharge Discharge Condition Stable Stable Stable Ambulatory Status Ambulatory Ambulatory, Ambulatory, Walker Walker Transportation Private Auto Private Auto Private Auto Medication Reconcilliation completed & Yes provided to patient/care provider Clinical Summary of Care Provided Yes Facility Type 07/26/23 16:02 Wound Care Center Nurse 3 #3- R LAT KNEE -Ulcer Cleansing Rinsed/ Irrigated with Saline -Foul Odor after Cleansing No -Primary Dressing Applied Aquacel Extra -Other Dressing ABD -Primary Dressing Covered/Secured with Dry Gauze & Roll Gauze, Secured with Tape -Aquacel Extra 2 2-right medial knee ulcer cluster -Ulcer Cleansing -Foul Odor after Cleansing -Primary Dressing Applied Aquacel Extra -Other Dressing EPIFIX -Primary Dressing Covered/Secured with Dry Gauze & Roll Gauze, Secured with Tape -Other Covering ABD -Aquacel Extra 0 -Mepilex Border -Promogran Constantin Matter #1- R mid LOWER KNEE -Ulcer Cleansing -Foul Odor after Cleansing -Primary Dressing Applied Aquacel Extra -Other Dressing EPIFIX -Primary Dressing Covered/Secured with Dry Gauze & Roll Gauze, Secured with Tape -Other Covering ABD -Aquacel Extra 0 -Mepilex Border BLE -Compression Wrap -Tubular Bandage -Size of Tubigrip Used -Size F ($) -Other Right -Compression Wrap Mc Wrap -Tubular Bandage Single Layer -Size of Tubigrip Used Size F -Size F ($) 1 -Other Left -Tubular Bandage -Size of Tubigrip Used -Size F ($) Treatment Response Procedure Tolerated Well Pain Scale: 0-10 Numeric Is Patient Pain Free? Yes WC - Visit Discharge Discharge Condition Stable Ambulatory Status Ambulatory, Walker Transportation Private Auto Medication Reconcilliation completed & provided to patient/care provider Clinical Summary of Care Provided Facility Type Home Health Assessment/Plan Assessment/Plan (1) Ulcer of right knee: CODE(S): L97.819 - Non-pressure chronic ulcer of other part of right lower leg with unspecified severity (2) Hematoma of right knee region: CODE(S): S80.01XA - Contusion of right knee, initial encounter (3) DM type 2, goal HbA1c < 7%: CODE(S): E11.9 - Type 2 diabetes mellitus without complications (4) Anemia of chronic disease: CODE(S): D63.8 - Anemia in other chronic diseases classified elsewhere (5) Anticoagulant long-term use: CODE(S): Z79.01 - intermediate accountant (current) use of anticoagulants (6) On rivaroxaban therapy: CODE(S): Z79.01 - detention (current) use of anticoagulants (7) Obesity: CODE(S): E66.9 - Obesity, unspecified (8) Leg swelling: CODE(S): M79.89 - Other specified soft tissue disorders PLAN: Plan Wound care - After subcutaneous debridement, EpiFix #2 applied to right knee ulcers cluster. 100% of the product was used. Covered with wound veil and secured with steri-strips and Mosby-Galo skin tissue adhesive. Covered with Mepilex dressing. She is to keep this wound dry. Change outer dressing above the wound veil as needed. Right medial knee ulcer place Constantin and cover with the Mepilex dressing. Compression - Single tubigrip bilaterally topped with MC wrap. Operative cultures were negative. She was treated with IV- antibiotics initially and was changed to Keflex at discharge and has finished them. Prealbumin was 12.5 on 04/20/23. Continue nutritional supplementation with protein to help the healing process. Patient is obese and has moderate swelling that can be problematic as it will slow down healing. Hgb was 7.1 at discharge. She was discharged on Iron supplementation. Hgb from 04/28/23 was 9.0. If there is a plateau during the healing process which is likely secondary to the swelling at this time, then we can always proceed with delayed closure with skin grafting. Followup one week for evaluation for EpiFix placement #3.
== END 2023-07-27 23:59 | disposition home or self-care (01) ==
LOC: WC 15:00
PROVIDERS: Referring Provider Surgery; Visit Provider Surgery
DX: L97.812 Non-pressure chronic ulcer of other part of right lower leg with fat layer exposed (principal); Z68.42 Body mass index [BMI] 45.0-49.9, adult; E11.9 Type 2 diabetes mellitus without complications; S80.01XA Contusion of right knee, initial encounter; R22.9 Localized swelling, mass and lump, unspecified; D63.8 Anemia in other chronic diseases classified elsewhere; Z79.01 Long term (current) use of anticoagulants; E66.9 Obesity, unspecified; M79.89 Other specified soft tissue disorders
CPT/HCPCS: 11042; 15271; Q4186

== ENCOUNTER → 2023-08-06 | Outpatient (CLI) | payer MEDICARE, SELFPAY ==
[2023-08-06 09:51] LABS: Hematocrit 26.5 % (37-47); Hemoglobin 7.9 g/dL (12.0-15.0); Mean Corp Hgb Conc 29.8 g/dL (32-36); Mean Corpuscular Hgb 29.2 pg (27.0-32.0); Mean Corpuscular Volume 97.8 fL (81-99); Mean Platelet Vol. 10.9 fl (6.2-12.0); Platelet Count 200 K/mm3 (150-450); RBC Distribution Width CV 15.9 % (11.6-14.6); RBC Distribution Width SD 56.9 fl (35.1-43.9); Red Blood Count 2.71 M/mm3 (4.2-5.4); White Blood Count 3.4 K/mm3 (4.4-11.0)
[2023-08-06 09:55] LABS: Anion Gap 9 (5-15); BUN 26 mg/dL (7-18); BUN/Creat Ratio 17.3 RATIO (10-20); Calcium,Total 8.3 mg/dL (8.5-10.1); Chloride 111 mmol/L (98-107); EST Glomerular Filtration Rate 36 mL/min (>60); Est Glom Filt Rate - Afr Amer 44 mL/min (>60); Glucose 141 mg/dL (74-106); Potassium 3.8 mmol/L (3.5-5.1); Sodium Level 143 mmol/L (136-145)
== END | disposition home or self-care (01) ==
LOC: LAB 09:10
DX: I25.119 Atherosclerotic heart disease of native coronary artery with unspecified angina pectoris (principal); Z48.817 Encounter for surgical aftercare following surgery on the skin and subcutaneous tissue
CPT/HCPCS: 36415; 80048; 85027

== ENCOUNTER → 2023-08-20 | Outpatient (CLI) | payer MEDICARE, SELFPAY ==
[2023-08-20 10:39] LABS: Hematocrit 27.5 % (37-47); Mean Corp Hgb Conc 29.1 g/dL (32-36); Mean Corpuscular Hgb 28.7 pg (27.0-32.0); Mean Corpuscular Volume 98.6 fL (81-99); Mean Platelet Vol. 11.1 fl (6.2-12.0); Platelet Count 220 K/mm3 (150-450); RBC Distribution Width CV 15.4 % (11.6-14.6); RBC Distribution Width SD 55.3 fl (35.1-43.9); Red Blood Count 2.79 M/mm3 (4.2-5.4); White Blood Count 4.3 K/mm3 (4.4-11.0)
[2023-08-20 10:57] LABS: Anion Gap 3 (5-15); BUN 28 mg/dL (7-18); BUN/Creat Ratio 21.4 RATIO (10-20); Calcium,Total 8.7 mg/dL (8.5-10.1); Chloride 112 mmol/L (98-107); Creatinine, Serum 1.31 mg/dL (0.55-1.02); EST Glomerular Filtration Rate 42 mL/min (>60); Est Glom Filt Rate - Afr Amer 51 mL/min (>60); Glucose 209 mg/dL (74-106); Potassium 4.5 mmol/L (3.5-5.1); Sodium Level 138 mmol/L (136-145)
== END | disposition home or self-care (01) ==
LOC: LAB 09:31
DX: S81.011D Laceration without foreign body, right knee, subsequent encounter (principal); I25.119 Atherosclerotic heart disease of native coronary artery with unspecified angina pectoris
CPT/HCPCS: 36415; 80048; 85027

== ENCOUNTER 2023-08-23 14:15 | Outpatient (RCR) | payer MEDICARE, SELFPAY ==
[2023-07-28 00:14] VITALS: BP 159/62; PULSE 73; RESP 20; TEMP 35.8; BMI 46.6
[2023-08-04 09:16] VITALS: BP 153/53; PULSE 63; RESP 18; TEMP 36.1; BMI 46.6
--- NOTE | 2023-08-04 16:07 | PN.PCM_ITS ---
History of Present Illness Date of Service: 08/04/23 Chief Complaint: Nonhealing hematoma ulcer right knee History of Wound: The patient is a 72 y/o woman with a history of diabetes, was admitted to the hospital with increasing redness and swelling and pain in her right knee after a mechanical fall. She is on anticoagulation and with the fall, she sustained a hematoma. When she initially came to the ED, she was given a script for Keflex and Bactrim. When she failed outpatient therapy with po antibiotics, she was admitted the next time she came to the ED. She was started on Vancomycin and Rocephin. Her WBC was 5.6. Hgb was 8.6. Her HgbA1c was 6.9 on 04/13/23. Dr. Gallegos from Orthopedics was consulted for this hematoma right knee. He proceeded with an I&D and evacuation of the hematoma. Wound care was started and a few days later he took her back to surgery to attempt closure of the wound. Her skin was thin and not very strong. He had difficulty with closure because the skin was tearing as there was too much tension from the swelling and from her obesity. So a VAC was applied and he consulted me to evaluate this patient for chronic wound care and for surgical options for wound closure. We have changed the wound care to Tiffani after washing the ulcer first with Daki n's. Today she denies fever. Her appetite is ok. Progress of Wound: Ulcers continue to improve. She has excoriation of the miroslava wound from tape. She has been approved for Epifix and tolerated EpiFix placement #2. Objective Data Objective Data Vital Signs: Vital Signs Temp Pulse Resp BP O2 Del Method 97.0 F L 63 18 153/53 H Room Air 08/04/23 09:16 08/04/23 09:16 08/04/23 09:16 08/04/23 09:16 08/04/23 09:16 Oxygen Delivery Method Room Air Weight: 307 lb Body Mass Index (BMI) 46.6 Charges/Coding Procedures Integumentary 150xxx-152xx: 08991 Skin sub graft trnk/arm/leg (ICD-10 - L97.819, S80.01xA, E11.9, D63.8, Z79.01, E66.9, M79.89) Debridement Note Debridement Note Wound debrided: #1 Right knee and right medial knee ulcers cluster Laterality: Right Wound Grade/Stage: 2. Type of Debridement: Excisional debridement Anesthesia Used: 4% Lidocaine Solution Depth: Down to and including healthy tissue and in the subcutaneous layer Percentage of wound debrided: 100 Instrument Used: 3mm curette Tissue Removed: subcutaneous tissue. Severity: Fat Layer Exposed Bleeding Controlled with: Pressure and Compression and gauze Patient tolerated procedure: Patient tolerated procedure well Debridement Free Text: EpiFix placement #3 today. Expiration - 03/27/28. Lot Number - [id number]. Percent Used - 100%. Lot Number for Saline - [id number]. Post-Debridement Measurements and Additional Note: Post-Debridement Measurements/Treatment WC - Nurse 1 - General Ulcer Assessment Start: 08/04/23 09:16 Freq: Status: Active Protocol: USHA Activity Type Activity Date Activity User E-sign Co-sign Detail Recorded Client Recorded Date Recorded By Document 08/04/23 09:16 KW Desktop 08/04/23 09:35 KW 08/04/23 09:16 WC - Today's Visit Information Type of service Follow-up Visit (Physician/SUPERVIS[employer] ) Arrival Mode Ambulatory, Walker Patient Identification Verified (Name & Yes ) Height and Weight Body Mass Index (BMI) 46.6 BMI Classification Obese Vital Signs Temperature (97.8 F-99.1 F) 97.0 F L Temperature Source Temporal Pulse Rate (60-100) 63 Pulse Location Monitor Respiratory Rate (12-18) 18 Respiratory rate source Observation Oxygen Delivery Method Room Air Blood Pressure (90/60-120/80) 153/53 H Blood Pressure Mean (mm Hg) 86 Source Monitor Position Semi-Fowlers Blood Pressure Location Right Forearm History Since Last Visit- (Skip if this is Patient's initial visit) Have you changed medications since your No last visit? Any new allergies or adverse reactions No Had a fall/change in ADL's that may No increase risk of falls Signs or symptoms of abuse and/or No neglect since last visit Have you been in the hospital since your No last visit? Has dressing in place as prescribed Yes Has compression in place as prescribed Yes Has offloadiing in place as prescribed No Experienced any changes in pain level or No management Left Footwear Regular Shoe Right Footwear Regular Shoe Pain Scale: 0-10 Numeric Is Patient Pain Free? Yes - Nurse 1 - General Ulcer Measurement Start: 08/04/23 09:16 Freq: Status: Active Protocol: Activity Type Activity Date Activity User E-sign Co-sign Detail Recorded Client Recorded Date Recorded By Document 08/04/23 09:16 KW Desktop 08/04/23 09:35 KW 08/04/23 09:16 Wound Center Nurse 1 #3- R LAT KNEE -Current Size (cm) - Length 3 -Current Size (cm) - Width 4.2 -Current Size (cm) - Depth 0.1 -Total Square Cm 12.6 -Exudate Amt Small -Exudate Type Serosanguineous -Wound Margin Distinct, Outline Attached -Granulation Amt Large (67-100%) -Granulation Quality Red -Texture (Miroslava-wound Skin Appearance) Assessed -Moisture (Miroslava-wound Skin Appearance) Assessed -Color (Miroslava-wound Skin Appearance) Assessed -Temperature (Miroslava-wound Skin No Abnormality Appearance) (Pt Warm) -Ulcer Cleansing Soap and Water -Foul Odor after Cleansing No -Anesthetic Used 4% Lidocaine Solution 2-right medial knee ulcer cluster -Current Size (cm) - Length 4 -Current Size (cm) - Width 11.2 -Current Size (cm) - Depth 0.2 -Total Square Cm 44.8 -Exudate Amt Medium -Exudate Type Serosanguineous -Wound Margin Distinct, Outline Attached -Granulation Amt Medium (34-66%) -Granulation Quality Red -Necrosis Amt Small (1-33%) -Necrotic Tissue Type Adherent Slough -Texture (Miroslava-wound Skin Appearance) Assessed, Localized Edema -Moisture (Miroslava-wound Skin Appearance) Assessed -Color (Miroslava-wound Skin Appearance) Assessed -Temperature (Miroslava-wound Skin No Abnormality Appearance) (Pt Warm) -Ulcer Cleansing Soap and Water -Anesthetic Used 4% Lidocaine Solution #1- R mid LOWER KNEE -Current Size (cm) - Length 1.0 -Current Size (cm) - Width 0.4 -Current Size (cm) - Depth 0.1 -Total Square Cm 0.40 -Exudate Amt Small -Exudate Type Serosanguineous -Wound Margin Distinct, Outline Attached -Granulation Amt Large (67-100%) -Granulation Quality Red -Texture (Miroslava-wound Skin Appearance) Assessed -Moisture (Miroslava-wound Skin Appearance) Assessed -Color (Miroslava-wound Skin Appearance) Assessed -Anesthetic Used 4% Lidocaine Solution Right Calf (cm) 55 WC - Nurse 2 - General Ulcer CM Notes Start: 08/04/23 09:16 Freq: Status: Active Protocol: Activity Type Activity Date Activity User E-sign Co-sign Detail Recorded Client Recorded Date Recorded By Document 08/04/23 09:41 Laptop 08/04/23 09:48 08/04/23 09:41 Wound Center Nurse 2 #3- R LAT KNEE -Time 09:44 -Correct Patient Yes -Correct Side, Site, Position Yes -Correct Procedure Yes -Procedure Performed Yes -Type of Procedure Debridement -Clinical Debridement Subcutaneous -Tissue Removed Subcutaneous -Post Debridement (cm) - Length 0.5 -Post Debridement (cm) - Width 1.3 -Post Debridement (cm) - Depth 0.2 -Total Square (Post) (cm) 0.65 -Area of Debridement (cm) - Length 0.5 -Area of Debridement (cm) - Width 1.3 -Total Square (Area) (cm) 0.65 -Tunneling No -Undermining/Tunneling No -Circular Undermining No -Wound/Ulcer Outcome Not Healed -Ulcer Cleansing Rinsed/ Irrigated with Saline -Foul Odor after Cleansing No -Bioengineered Tissue No -Bleeding Controlled with Pressure -Treatment Response Procedure Tolerated Well -Offloading No -Debridement - Subq, 1st 20sq cm Yes 2-right medial knee ulcer cluster -Time 09:45 -Correct Patient Yes -Correct Side, Site, Position Yes -Correct Procedure Yes -Procedure Performed Yes -Type of Procedure Debridement -Clinical Debridement Subcutaneous -Tissue Removed Subcutaneous -Post Debridement (cm) - Length 0.3 -Post Debridement (cm) - Width 0.3 -Post Debridement (cm) - Depth 0.1 -Total Square (Post) (cm) 0.09 -Area of Debridement (cm) - Length 0.3 -Area of Debridement (cm) - Width 0.3 -Total Square (Area) (cm) 0.09 -Tunneling No -Undermining/Tunneling No -Circular Undermining No -Wound/Ulcer Outcome Not Healed -Ulcer Cleansing Rinsed/ Irrigated with Saline -Foul Odor after Cleansing No -Bioengineered Tissue No -Bleeding Controlled with Pressure -Treatment Response Procedure Tolerated Well -Offloading No -Debridement - Subq, 1st 20sq cm No #1- R mid LOWER KNEE -Time 09:46 -Correct Patient Yes -Correct Side, Site, Position Yes -Correct Procedure Yes -Procedure Performed Yes -Type of Procedure Debridement -Clinical Debridement Subcutaneous -Tissue Removed Subcutaneous -Post Debridement (cm) - Length 1.3 -Post Debridement (cm) - Width 0.7 -Post Debridement (cm) - Depth 0.1 -Total Square (Post) (cm) 0.91 -Area of Debridement (cm) - Length 1.3 -Area of Debridement (cm) - Width 0.7 -Total Square (Area) (cm) 0.91 -Tunneling No -Undermining/Tunneling No -Circular Undermining No -Wound/Ulcer Outcome Not Healed -Ulcer Cleansing Rinsed/ Irrigated with Saline -Foul Odor after Cleansing No -Bioengineered Tissue Yes -Type of Bioengineered Tissue Epifix 18mm Disc -Expiration Date 03/27/28 -Product Lot Number [id number] -Percent Used 100 -Lot number of Saline Used [id number] -Bleeding Controlled with Pressure -Treatment Response Procedure Tolerated Well -Offloading No -Debridement - Subq, 1st 20sq cm No -Apply Skin Sub - 1st 25 sq cm - Legs 1 -Epifix 18mm Disc 3 Pain Scale: 0-10 Numeric Is Patient Pain Free? Yes - Nurse 3 - General Ulcer D/C NN Start: 08/04/23 09:16 Freq: Status: Active Protocol: Activity Type Activity Date Activity User E-sign Co-sign Detail Recorded Client Recorded Date Recorded By Document 08/04/23 10:01 Desktop 08/04/23 10:02 08/04/23 10:01 Wound Care Center Nurse 3 #3- R LAT KNEE -Primary Dressing Covered/Secured with Dry Gauze 2-right medial knee ulcer cluster -Primary Dressing Covered/Secured with Dry Gauze #1- R mid LOWER KNEE -Primary Dressing Covered/Secured with Dry Gauze RT leg -Compression Wrap Mc Wrap -Tubular Bandage Single Layer -Size of Tubigrip Used Size F -Size F ($) 1 Pain Scale: 0-10 Numeric Is Patient Pain Free? Yes - Visit Discharge Discharge Condition Stable Ambulatory Status Ambulatory, Walker Transportation Private Auto Medication Reconcilliation completed & No provided to patient/care provider Clinical Summary of Care Provided Yes Assessment/Plan Assessment/Plan (1) Ulcer of right knee: CODE(S): L97.819 - Non-pressure chronic ulcer of other part of right lower leg with unspecified severity (2) Hematoma of right knee region: CODE(S): S80.01XA - Contusion of right knee, initial encounter (3) DM type 2, goal HbA1c < 7%: CODE(S): E11.9 - Type 2 diabetes mellitus without complications (4) Anemia of chronic disease: CODE(S): D63.8 - Anemia in other chronic diseases classified elsewhere (5) Anticoagulant long-term use: CODE(S): Z79.01 - half-way (current) use of anticoagulants (6) On rivaroxaban therapy: CODE(S): Z79.01 - half-way (current) use of anticoagulants (7) Obesity: CODE(S): E66.9 - Obesity, unspecified (8) Leg swelling: CODE(S): M79.89 - Other specified soft tissue disorders (9) Lymphedema of both lower extremities: CODE(S): I89.0 - Lymphedema, not elsewhere classified PLAN: Plan Wound care - After subcutaneous debridement, EpiFix #3 applied to right knee mid ulcer cluster. 100% of the product was used. Covered with wound veil and secured with steri-strips and Braymer-Galo skin tissue adhesive. Covered with Mepilex dressing. She is to keep this wound dry. Change outer dressing above the wound veil as needed. Right medial knee ulcer place Tiffani and cover with the Mepilex dressing. Compression - Single tubigrip bilaterally topped with MC wrap. Stressed that she may need to rewrap the MC wrap several times a day as swelling goes down. She has Lymphedema. She needs better compression that the tubigrip and MC wrap. Will order Arterial and venous studies of bilateral lower legs. Stressed importance keeping legs elevated when sitting. Encouraged to sleep in a bed laying flat. Operative cultures were negative. She was treated with IV- antibiotics initially and was changed to Keflex at discharge and has finished them. Prealbumin was 12.5 on 04/20/23. Continue nutritional supplementation with protein to help the healing process. Patient is obese and has moderate swelling that can be problematic as it will s low down healing. Hgb was 7.1 at discharge. She was discharged on Iron supplementation. Hgb from 04/28/23 was 9.0. If there is a plateau during the healing process which is likely secondary to the swelling at this time, then we can always proceed with delayed closure with skin grafting. Followup one week for evaluation for EpiFix placement #4.
[2023-08-09 14:08] VITALS: BP 181/67; PULSE 66; TEMP 35.7; BMI 46.6
--- NOTE | 2023-08-09 15:00 | PN.PCM_ITS ---
History of Present Illness Date of Service: 08/09/23 Chief Complaint: Nonhealing hematoma ulcer right knee History of Wound: The patient is a 72 y/o woman with a history of diabetes, was admitted to the hospital with increasing redness and swelling and pain in her right knee after a mechanical fall. She is on anticoagulation and with the fall, she sustained a hematoma. When she initially came to the ED, she was given a script for Keflex and Bactrim. When she failed outpatient therapy with po antibiotics, she was admitted the next time she came to the ED. She was started on Vancomycin and Rocephin. Her WBC was 5.6. Hgb was 8.6. Her HgbA1c was 6.9 on 04/13/23. Dr. Gallegos from Orthopedics was consulted for this hematoma right knee. He proceeded with an I&D and evacuation of the hematoma. Wound care was started and a few days later he took her back to surgery to attempt closure of the wound. Her skin was thin and not very strong. He had difficulty with closure because the skin was tearing as there was too much tension from the swelling and from her obesity. So a VAC was applied and he consulted me to evaluate this patient for chronic wound care and for surgical options for wound closure. We have changed the wound care to Tiffani after washing the ulcer first with Daki n's. Today she denies fever. Her appetite is ok. Progress of Wound: Left knee cluster is improving- the medial knee is healed. The mid knee ulcer is much smaller and the lateral portion is smaller. She does have several areas of excoriation form blisters and tape tears. She continues to have +3 edema/lymphedema. Her miroslava wound is excoriated. Objective Data Objective Data Vital Signs: Vital Signs Temp Pulse Resp BP O2 Del Method 96.2 F L 66 18 181/67 H Room Air 08/09/23 14:08 08/09/23 14:08 08/04/23 09:16 08/09/23 14:08 08/09/23 14:08 Oxygen Delivery Method Room Air Weight: 307 lb Body Mass Index (BMI) 46.6 Charges/Coding Procedures Integumentary 111xxx-113xx: [id number] Zita subq tissue 20 sq cm/< Debridement Note Debridement Note Wound debrided: #1 Right knee and right medial knee ulcers cluster Laterality: Right Wound Grade/Stage: 2. Type of Debridement: Excisional debridement Anesthesia Used: 4% Lidocaine Solution Depth: Down to and including healthy tissue and in the subcutaneous layer Percentage of wound debrided: 100 Instrument Used: 3mm curette Tissue Removed: subcutaneous tissue. Severity: Fat Layer Exposed Bleeding Controlled with: Pressure and Compression and gauze Patient tolerated procedure: Patient tolerated procedure well Post-Debridement Measurements and Additional Note: Post-Debridement Measurements/Treatment - Nurse 1 - General Ulcer Assessment Start: 08/04/23 09:16 Freq: Status: Active Protocol: USHA Activity Type Activity Date Activity User E-sign Co-sign Detail Recorded Client Recorded Date Recorded By Document 08/04/23 09:16 KW Desktop 08/04/23 09:35 KW Document 08/09/23 14:08 Desktop 08/09/23 14:12 08/04/23 08/09/23 09:16 14:08 - Today's Visit Information Type of service Follow-up Visit Follow-up Visit (Physician/AUTO SELF SERVICE STATION ATTENDANT (Physician/AUTO SELF SERVICE STATION ATTENDANT ) ) Arrival Mode Ambulatory, Ambulatory Walker Transfer Assistance None Patient Identification Verified (Name & Yes Yes ) Patient Requires Transmission-Based No Precautions Safety Precautions NA Height and Weight Body Mass Index (BMI) 46.6 46.6 BMI Classification Obese Obese Vital Signs Temperature (97.8 F-99.1 F) 97.0 F L 96.2 F L Temperature Source Temporal Temporal Pulse Rate (60-100) 63 66 Pulse Location Monitor Monitor Respiratory Rate (12-18) 18 Respiratory rate source Observation Oxygen Delivery Method Room Air Room Air Blood Pressure (90/60-120/80) 153/53 H 181/67 H Blood Pressure Mean (mm Hg) 86 105 Source Monitor Monitor Position Semi-Fowlers Sitting Blood Pressure Location Right Forearm Right Arm History Since Last Visit- (Skip if this is Patient's initial visit) Have you changed medications since your No No last visit? Any new allergies or adverse reactions No No Had a fall/change in ADL's that may No No increase risk of falls Signs or symptoms of abuse and/or No No neglect since last visit Have you been in the hospital since your No No last visit? Has dressing in place as prescribed Yes Yes Has compression in place as prescribed Yes Yes Has offloadiing in place as prescribed No No Experienced any changes in pain level or No No management Left Footwear Regular Shoe Right Footwear Regular Shoe Pain Scale: 0-10 Numeric Is Patient Pain Free? Yes Yes WC - Nurse 1 - General Ulcer Measurement Start: 08/04/23 09:16 Freq: Status: Active Protocol: Activity Type Activity Date Activity User E-sign Co-sign Detail Recorded Client Recorded Date Recorded By Document 08/04/23 09:16 KW Desktop 08/04/23 09:35 KW Document 08/09/23 14:08 Desktop 08/09/23 14:12 08/04/23 08/09/23 09:16 14:08 Wound Center Nurse 1 2-right medial knee ulcer cluster -Combined with other wound No -Current Size (cm) - Length 4 0.1 -Current Size (cm) - Width 11.2 0.1 -Current Size (cm) - Depth 0.2 0.1 -Total Square Cm 44.8 0.01 -Epithelialization Large 67-100% -Exudate Amt Medium -Exudate Type Serosanguineous -Wound Margin Distinct, Outline Attached -Granulation Amt Medium (34-66%) -Granulation Quality Red -Necrosis Amt Small (1-33%) -Necrotic Tissue Type Adherent Slough -Texture (Miroslava-wound Skin Appearance) Assessed, Localized Edema -Moisture (Miroslava-wound Skin Appearance) Assessed -Color (Miroslava-wound Skin Appearance) Assessed -Temperature (Miroslava-wound Skin No Abnormality Appearance) (Pt Warm) -Ulcer Cleansing Soap and Water -Anesthetic Used 4% Lidocaine Solution #3- R LAT KNEE -Combined with other wound No -Current Size (cm) - Length 3 0.4 -Current Size (cm) - Width 4.2 1.3 -Current Size (cm) - Depth 0.1 0.1 -Total Square Cm 12.6 0.52 -Exudate Amt Small -Exudate Type Serosanguineous -Wound Margin Distinct, Outline Attached -Granulation Amt Large (67-100%) -Granulation Quality Red -Texture (Miroslava-wound Skin Appearance) Assessed -Moisture (Miroslava-wound Skin Appearance) Assessed -Color (Miroslava-wound Skin Appearance) Assessed -Temperature (Miroslava-wound Skin No Abnormality Appearance) (Pt Warm) -Ulcer Cleansing Soap and Water -Foul Odor after Cleansing No -Anesthetic Used 4% Lidocaine Solution #1- R mid LOWER KNEE -Combined with other wound No -Current Size (cm) - Length 1.0 0.1 -Current Size (cm) - Width 0.4 0.1 -Current Size (cm) - Depth 0.1 0.1 -Total Square Cm 0.40 0.01 -Photo Taken No -Epithelialization Large 67-100% -Tunneling No -Undermining/Tunneling No -Circular Undermining No -Exudate Amt Small -Exudate Type Serosanguineous -Wound Margin Distinct, Outline Attached -Granulation Amt Large (67-100%) -Granulation Quality Red -Texture (Miroslava-wound Skin Appearance) Assessed Assessed -Moisture (Miroslava-wound Skin Appearance) Assessed Assessed -Color (Miroslava-wound Skin Appearance) Assessed Assessed -Ulcer Cleansing Soap and Water -Foul Odor after Cleansing No -Anesthetic Used 4% Lidocaine Solution Lower Limb Edema Present No Right Calf (cm) 55 50.2 Right Ankle (cm) 27.4 WC - Nurse 2 - General Ulcer CM Notes Start: 08/04/23 09:16 Freq: Status: Active Protocol: Activity Type Activity Date Activity User E-sign Co-sign Detail Recorded Client Recorded Date Recorded By Document 08/04/23 09:41 [employer] Laptop 08/04/23 09:48 Document 08/09/23 14:16 Laptop 08/09/23 14:20 08/04/23 08/09/23 09:41 14:16 Wound Center Nurse 2 2-right medial knee ulcer cluster -Time 09:45 -Correct Patient Yes No -Correct Side, Site, Position Yes No -Correct Procedure Yes No -Procedure Performed Yes No -Type of Procedure Debridement -Clinical Debridement Subcutaneous -Tissue Removed Subcutaneous -Post Debridement (cm) - Length 0.3 0 -Post Debridement (cm) - Width 0.3 0 -Post Debridement (cm) - Depth 0.1 0 -Total Square (Post) (cm) 0.09 0 -Area of Debridement (cm) - Length 0.3 0 -Area of Debridement (cm) - Width 0.3 0 -Total Square (Area) (cm) 0.09 0 -Tunneling No -Undermining/Tunneling No -Circular Undermining No -Wound/Ulcer Outcome Not Healed Healed- Epithelialized -Ulcer Cleansing Rinsed/ Irrigated with Saline -Foul Odor after Cleansing No -Bioengineered Tissue No -Bleeding Controlled with Pressure -Treatment Response Procedure Tolerated Well -Offloading No -Debridement - Subq, 1st 20sq cm No #3- R LAT KNEE -Time 09:44 14:16 -Correct Patient Yes Yes -Correct Side, Site, Position Yes Yes -Correct Procedure Yes Yes -Procedure Performed Yes Yes -Type of Procedure Debridement Debridement -Clinical Debridement Subcutaneous Subcutaneous -Tissue Removed Subcutaneous Subcutaneous -Post Debridement (cm) - Length 0.5 0.5 -Post Debridement (cm) - Width 1.3 1.3 -Post Debridement (cm) - Depth 0.2 0.2 -Total Square (Post) (cm) 0.65 0.65 -Area of Debridement (cm) - Length 0.5 0.5 -Area of Debridement (cm) - Width 1.3 1.3 -Total Square (Area) (cm) 0.65 0.65 -Tunneling No No -Undermining/Tunneling No No -Circular Undermining No No -Wound/Ulcer Outcome Not Healed Not Healed -Ulcer Cleansing Rinsed/ Rinsed/ Irrigated with Irrigated with Saline Saline -Foul Odor after Cleansing No No -Bioengineered Tissue No No -Bleeding Controlled with Pressure Pressure -Treatment Response Procedure Procedure Tolerated Well Tolerated Well -Offloading No No -Debridement - Subq, 1st 20sq cm Yes Yes #1- R mid LOWER KNEE -Time 09:46 14:17 -Correct Patient Yes Yes -Correct Side, Site, Position Yes Yes -Correct Procedure Yes Yes -Procedure Performed Yes Yes -Type of Procedure Debridement Debridement -Clinical Debridement Subcutaneous Subcutaneous -Tissue Removed Subcutaneous Subcutaneous -Post Debridement (cm) - Length 1.3 0.2 -Post Debridement (cm) - Width 0.7 0.2 -Post Debridement (cm) - Depth 0.1 0.1 -Total Square (Post) (cm) 0.91 0.04 -Area of Debridement (cm) - Length 1.3 0.2 -Area of Debridement (cm) - Width 0.7 0.2 -Total Square (Area) (cm) 0.91 0.04 -Tunneling No No -Undermining/Tunneling No No -Circular Undermining No No -Wound/Ulcer Outcome Not Healed Not Healed -Ulcer Cleansing Rinsed/ Rinsed/ Irrigated with Irrigated with Saline Saline -Foul Odor after Cleansing No No -Bioengineered Tissue Yes No -Type of Bioengineered Tissue Epifix 18mm Disc -Expiration Date 03/27/28 -Product Lot Number [id number] -Percent Used 100 -Lot number of Saline Used [id number] -Bleeding Controlled with Pressure Pressure -Treatment Response Procedure Procedure Tolerated Well Tolerated Well -Offloading No No -Debridement - Subq, 1st 20sq cm No No -Apply Skin Sub - 1st 25 sq cm - Legs 1 -Epifix 18mm Disc 3 Pain Scale: 0-10 Numeric Is Patient Pain Free? Yes Yes - Nurse 3 - General Ulcer D/C NN Start: 08/04/23 09:16 Freq: Status: Active Protocol: Activity Type Activity Date Activity User E-sign Co-sign Detail Recorded Client Recorded Date Recorded By Document 08/04/23 10:01 KW Desktop 08/04/23 10:02 KW Document 08/09/23 14:45 [facility] Desktop 08/09/23 14:47 BMF 08/04/23 08/09/23 10:01 14:45 Wound Care Center Nurse 3 2-right medial knee ulcer cluster -Primary Dressing Covered/Secured with Dry Gauze #3- R LAT KNEE -Ulcer Cleansing Rinsed/ Irrigated with Saline -Foul Odor after Cleansing No -Primary Dressing Applied NonAdherent Contact Layer, Promogran -Other Dressing ABD -Primary Dressing Covered/Secured with Dry Gauze Dry Gauze & Roll Gauze, Secured with Tape -Promogran 1 #1- R mid LOWER KNEE -Ulcer Cleansing Rinsed/ Irrigated with Saline -Foul Odor after Cleansing No -Primary Dressing Applied NonAdherent Contact Layer, Promogran -Primary Dressing Covered/Secured with Dry Gauze Dry Gauze & Roll Gauze, Secured with Tape -Promogran 0 RT leg -Compression Wrap Mc Wrap -Tubular Bandage Single Layer Single Layer -Size of Tubigrip Used Size F Size F -Size F ($) 1 1 Treatment Response Procedure Tolerated Well Pain Scale: 0-10 Numeric Is Patient Pain Free? Yes Yes - Visit Discharge Discharge Condition Stable Stable Ambulatory Status Ambulatory, Ambulatory, Walker Walker Transportation Private Auto Private Auto Medication Reconcilliation completed & No provided to patient/care provider Clinical Summary of Care Provided Yes Assessment/Plan Assessment/Plan (1) Ulcer of right knee: CODE(S): L97.819 - Non-pressure chronic ulcer of other part of right lower leg with unspecified severity (2) Hematoma of right knee region: CODE(S): S80.01XA - Contusion of right knee, initial encounter (3) DM type 2, goal HbA1c < 7%: CODE(S): E11.9 - Type 2 diabetes mellitus without complications (4) Anemia of chronic disease: CODE(S): D63.8 - Anemia in other chronic diseases classified elsewhere (5) Anticoagulant long-term use: CODE(S): Z79.01 - 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 Wound care - She has had 3 applications of EpiFix. We will not place one on the ulcer because it is almost healed. Moistened Tiffani right mid knee and lateral knee ulcer cover adaptic and top with gauze. Place adaptic covered with gauze over skin tears/blisters. Compression - Single tubigrip bilaterally topped with MC wrap. Stressed that she may need to rewrap the MC wrap several times a day as swelling goes down. She has Lymphedema. She needs better compression that the tubigrip and MC wrap. Will order Arterial and venous studies of bilateral lower legs. Stressed importance keeping legs elevated when sitting. Encouraged to sleep in a bed laying flat. Operative cultures were negative. She was treated with IV- antibiotics initially and was changed to Keflex at discharge and has finished them. Prealbumin was 12.5 on 04/20/23. Continue nutritional supplementation with protein to help the healing process. Patient is obese and has moderate swelling that can be problematic as it will slow down healing. Hgb was 7.1 at discharge. She was discharged on Iron supplementation. Hgb from 04/28/23 was 9.0. If there is a plateau during the healing process which is likely secondary to the swelling at this time, then we can always proceed with delayed closure with skin grafting. Ordered both venous and arterial studies, which she has at the end of the week. Followup one week.
--- NOTE | 2023-08-13 09:26 | ART_ITS ---
Reason For Study: Wound Procedure A bilateral lower extremity continuous wave Doppler with analog waveform analysis,segmental pressures,and ankle brachial indexes without exercise. Left Segmental Pressures Left brachial= 164mmHg. Left posterior tibial artery = 194mmHg. Left dorsalis pedis artery = >254mmHg. Left digit = 120 mmHg. The left dorsalis pedis waveforms are triphasic. The left posterior tibial artery waveforms are triphasic. Right Segmental Pressures Right brachial= 163mmHg. Right posterior tibial artery = 164mmHg. Right dorsalis pedis artery = >254mmHg. Right digit = 110 mmHg. The right dorsalis pedis waveforms are triphasic. The right posterior tibial artery waveforms are biphasic. Indices The right ankle brachial index by the dorsalis pedis is NC. The right ankle brachial index by the posterior tibial artery is 1.00. The right digital-brachial index is 0.67. The left ankle brachial index by the dorsalis pedis is NC. The left ankle brachial index by the posterior tibial artery is 1.18. The left digital-brachial index is 0.73. VL/Lower Ext Art Exam w/o Exercis Interpretation Summary Biphasic and triphasic Doppler waveforms are noted at ankle level on the right. Triphasic Doppler waveforms are noted at ankle level on the left. Pulse-volume recordings appear diminished at digital level on the left, but satisfactory at all other levels bilaterally. Resting an kle-brachial indices are normal bilaterally. The right digital-brachial index is mildly diminished. The left digital- brachial index is low-normal. Arterial flow appears normal at ankle level bilaterally. Based upon digital-bra chial indices and pulse-volume recordings, there is evidence of mild arterial occlusive disease a t digital level bilaterally. Ordering Physician: Ami Koroma Referring Physician: Maggi Chicas Performed By: Tammy Hall RVT
--- NOTE | 2023-08-13 09:27 | VDLE_ITS ---
Reason For Study: Bilateral leg edema RIGHT LEFT CFV is compressible, spontaneous, competent CFV is compressible, spontaneous, competent, and demonstrates pulsatile venous flow. and demonstrates pulsatile venous flow. FV is compressible, spontaneous, competent FV is compressible, spontaneous, competent and demonstrates pulsatile venous flow. and demonstrates pulsatile venous flow. POP V is compressible, spontaneous, competent POP V is compressible, spontaneous, competent and demonstrates pulsatile venous flow. and demonstrates pulsatile venous flow. T/P Trunk is compressible. T/P Trunk is compressible. PTV is compressible. PTV is compressible. RT PerV is compressible. LT PerV is compressible. SFJ is INCOMPETENT and measures 1.51 x 1.24 SFJ is INCOMPETENT and measures 1.30 x 1.40 cm. cm. GSV proximal thigh measures 1.00 x 1.01 cm. GSV proximal thigh measures 0.86 x 0.87 cm. GSV at knee measures 0.77 x 0.86 cm. GSV at knee measures 0.44 x 0.37 cm. GSV INCOMPETENT throughout for greater than GSV INCOMPETENT throughout for greater than 0.5 seconds. 0.5 seconds. ASV at knee is INCOMPETENT for greater than ASV mid thigh is INCOMPETENT for greater than 0.5 seconds and measures 0.75 x 0.77 cm. 0.5 seconds and measures 0.59 x 0.56 cm. INCOMPETENT senior paralegal is noted 5cm above ASV 2 at mid thigh is INCOMPETENT for greater medial malleolus. than 0.5 seconds and measures 0.53 x 0.53 cm. SSV proximal calf is INCOMPETENT for greater Vein wraps posteriorly around leg. than 0.5 seconds and measures 0.28 x 0.26 cm. ASV at knee is INCOMPETENT for greater than Procedure 0.5 seconds and measures 0.35 x 0.33 cm. This is a venous duplex using B-mode, color SSV proximal calf is competent and measures flow and spectral Doppler. 0.21 x 0.20 cm. Exam performed in department. Patient was scanned in supine position during reflux assessment. The study was technically difficult. A preliminary report was called and/or faxed to . VL/Venous Duplex US - [place] Extrem Interpretation Summary Deep veins of the lower extremities are bilaterally patent and compressible seg mentally. There is no evidence of deep vein thrombosis on either side. Valvular competence appears in tact within the proximal deep venous systems bilaterally. The great saphenous veins appear bila terally patent and compressible segmentally. Sapheno-femoral junctions are bilaterally incompetent . Segmental valvular incompetence is noted within the great saphenous veins bilaterally. The right s mall saphenous vein is patent and incompetent. The left small saphenous vein is patent and competen t. The accessory saphenous vein at the right knee is incompetent. Two accessory saphenous veins in the left mid-thigh are incompetent. An accessory saphenous vein at the left knee is incompetent. A n incompetent senior paralegal vein is noted in the right calf, located 5 centimeters proximal to t he right medial malleolus. Pulsatile flow is noted in the deep venous system bilaterally, which may be indicative of elevated central venous pressure (i.e. congestive heart failure, pulmonary hype rtension, etc.). Clinical correlation is advised. Ordering Physician: Ami Koroma Referring Physician: Maggi Chicas Performed By: Tammy Hall RVT
[2023-08-16 14:02] VITALS: BP 159/48; PULSE 58; RESP 16; TEMP 35.7; BMI 46.6
--- NOTE | 2023-08-16 21:41 | PCM.WC.PN ---
History of Present Illness Date of Service: 08/16/23 Chief Complaint: Nonhealing hematoma ulcer right knee History of Wound: The patient is a 72 y/o woman with a history of diabetes, was admitted to the hospital with increasing redness and swelling and pain in her right knee after a mechanical fall. She is on anticoagulation and with the fall, she sustained a hematoma. When she initially came to the ED, she was given a script for Keflex and Bactrim. When she failed outpatient therapy with po antibiotics, she was admitted the next time she came to the ED. She was started on Vancomycin and Rocephin. Her WBC was 5.6. Hgb was 8.6. Her HgbA1c was 6.9 on 04/13/23. Dr. Gallegos from Orthopedics was consulted for this hematoma right knee. He proceeded with an I&D and evacuation of the hematoma. Wound care was started and a few days later he took her back to surgery to attempt closure of the wound. Her skin was thin and not very strong. He had difficulty with closure because the skin was tearing as there was too much tension from the swelling and from her obesity. So a VAC was applied and he consulted me to evaluate this patient for chronic wound care and for surgical options for wound closure. Venous studies done on 08/13/23 - Sapheno-femoral junctions are bilaterally incompetent . Segmental valvular incompetence is noted within the great saphenous veins bilaterally. The right small saphenous vein is patent and incompetent. The accessory saphenous vein at the right knee is incompetent. Two accessory saphenous veins in the left mid-thigh are incompetent. An accessory saphenous vein at the left knee is incompetent. An incompetent falafel cart cook vein is noted in the right calf, located 5 centimeters proximal to the right medial malleolus. Pulsatile flow is noted in the deep venous system bilaterally, which may be indicative of elevated central venous pressure (i.e. congestive heart failure, pulmonary hypertension, etc.). Clinical correlation is advised. Arterial studies obtained 08/13/23 - Biphasic and triphasic Doppler waveforms are noted at ankle level on the right. Triphasic Doppler waveforms are noted at ankle level on the left. Pulse-volume recordings appear diminished at digital level on the left, but satisfactory at all other levels bilaterally. Resting ankle-brachial indices are normal bilaterally. The right digital-brachial index is mildly diminished. The left digital-brachial index is low-normal. Arterial flow appears normal at ankle level bilaterally. 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 Right JEFFREY - 1.00, left JEFFREY - 1.18. Wound care - Moistened Tiffani. Today she denies fever. Her appetite is ok. Progress of Wound: Left knee cluster is improving- the medial knee remains healed, the mid knee ulcer is healed today and the lateral portion is smaller. Her skin tears are almost healed also. Her miroslava wound excoriation is almost completely resolved and her edema has improved and is +2-+3. She had her vascular studies last Wednesday. Objective Data Objective Data Vital Signs: Vital Signs Temp Pulse Resp BP O2 Del Method 96.3 F L 58 L 16 159/48 H Room Air 08/16/23 14:02 08/16/23 14:02 08/16/23 14:02 08/16/23 14:02 08/16/23 14:02 Oxygen Delivery Method Room Air Weight: 307 lb Body Mass Index (BMI) 46.6 Charges/Coding Procedures Integumentary 111xxx-113xx: [id number] Zita subq tissue 20 sq cm/< Debridement Note Debridement Note Wound debrided: #1 Right lateral knee Laterality: Right Wound Grade/Stage: 2. Type of Debridement: Excisional debridement Anesthesia Used: 4% Lidocaine Solution Depth: Down to and including healthy tissue and in the subcutaneous layer Percentage of wound debrided: 100 Instrument Used: 3mm curette Tissue Removed: subcutaneous tissue. Severity: Fat Layer Exposed Bleeding Controlled with: Pressure and Compression and gauze Patient tolerated procedure: Patient tolerated procedure well Post-Debridement Measurements and Additional Note: Post-Debridement Measurements/Treatment WC - Nurse 1 - General Ulcer Assessment Start: 08/04/23 09:16 Freq: Status: Active Protocol: AMBREEN.ANIBAL Activity Type Activity Date Activity User E-sign Co-sign Detail Recorded Client Recorded Date Recorded By Document 08/04/23 09:16 KW Desktop 08/04/23 09:35 KW Document 08/09/23 14:08 Desktop 08/09/23 14:12 GM Document 08/16/23 14:[address] [facility] Desktop 08/16/23 14:[address] [facility] 08/04/23 08/09/23 08/16/23 09:16 14:08 14:02 - Today's Visit Information Type of service Follow-up Visit Follow-up Visit Follow-up Visit (Physician/STROKE PROGRAM COORDINATOR (Physician/STROKE PROGRAM COORDINATOR (Physician/STROKE PROGRAM COORDINATOR ) ) ) Arrival Mode Ambulatory, Ambulatory Ambulatory, Walker Walker Transfer Assistance None None Patient Identification Verified (Name & Yes Yes Yes ) Patient Requires Transmission-Based No No Precautions Safety Precautions NA Height and Weight Body Mass Index (BMI) 46.6 46.6 46.6 BMI Classification Obese Obese Obese Vital Signs Temperature (97.8 F-99.1 F) 97.0 F L 96.2 F L 96.3 F L Temperature Source Temporal Temporal Temporal Pulse Rate (60-100) 63 66 58 L Pulse Location Monitor Monitor Monitor Respiratory Rate (12-18) 18 16 Respiratory rate source Observation Observation Oxygen Delivery Method Room Air Room Air Room Air Blood Pressure (90/60-120/80) 153/53 H 181/67 H 159/48 H Blood Pressure Mean (mm Hg) 86 105 85 Source Monitor Monitor Monitor Position Semi-Fowlers Sitting Sitting Blood Pressure Location Right Forearm Right Arm Right Arm History Since Last Visit- (Skip if this is Patient's initial visit) Have you changed medications since your No No No last visit? Any new allergies or adverse reactions No No No Had a fall/change in ADL's that may No No No increase risk of falls Signs or symptoms of abuse and/or No No No neglect since last visit Have you been in the hospital since your No No No last visit? Has dressing in place as prescribed Yes Yes Yes Has compression in place as prescribed Yes Yes Yes Has offloadiing in place as prescribed No No N/A Experienced any changes in pain level or No No No management Left Footwear Regular Shoe Regular Shoe Right Footwear Regular Shoe Regular Shoe Pain Scale: 0-10 Numeric Is Patient Pain Free? Yes Yes Yes - Nurse 1 - General Ulcer Measurement Start: 08/04/23 09:16 Freq: Status: Active Protocol: Activity Type Activity Date Activity User E-sign Co-sign Detail Recorded Client Recorded Date Recorded By Document 08/04/23 09:16 KW Desktop 08/04/23 09:35 KW Document 08/09/23 14:08 GM Desktop 08/09/23 14:12 GM Document 08/16/23 14:02 [facility] Desktop 08/16/23 14:[address] [facility] 08/04/23 08/09/23 08/16/23 09:16 14:08 14:02 Wound Center Nurse 1 2-right medial knee ulcer cluster -Combined with other wound No -Current Size (cm) - Length 4 0.1 -Current Size (cm) - Width 11.2 0.1 -Current Size (cm) - Depth 0.2 0.1 -Total Square Cm 44.8 0.01 -Epithelialization Large 67-100% -Exudate Amt Medium -Exudate Type Serosanguineous -Wound Margin Distinct, Outline Attached -Granulation Amt Medium (34-66%) -Granulation Quality Red -Necrosis Amt Small (1-33%) -Necrotic Tissue Type Adherent Slough -Texture (Miroslava-wound Skin Appearance) Assessed, Localized Edema -Moisture (Miroslava-wound Skin Appearance) Assessed -Color (Miroslava-wound Skin Appearance) Assessed -Temperature (Miroslava-wound Skin No Abnormality Appearance) (Pt Warm) -Ulcer Cleansing Soap and Water -Anesthetic Used 4% Lidocaine Solution #1- R mid LOWER KNEE -Combined with other wound No No -Current Size (cm) - Length 1.0 0.1 0 -Current Size (cm) - Width 0.4 0.1 0 -Current Size (cm) - Depth 0.1 0.1 0 -Total Square Cm 0.40 0.01 0 -Photo Taken No -Epithelialization Large 67-100% Large 67-100% -Tunneling No No -Undermining/Tunneling No No -Circular Undermining No No -Exudate Amt Small None Present -Exudate Type Serosanguineous -Wound Margin Distinct, Outline Attached -Granulation Amt Large (67-100%) -Granulation Quality Red -Texture (Miroslava-wound Skin Appearance) Assessed Assessed Assessed, Scarring -Moisture (Miroslava-wound Skin Appearance) Assessed Assessed Assessed -Color (Miroslava-wound Skin Appearance) Assessed Assessed Assessed -Temperature (Miroslava-wound Skin No Abnormality Appearance) (Pt Warm) -Tenderness on Palpation (Miroslava-wound No Skin Appearance) -Ulcer Cleansing Soap and Water Soap and Water -Foul Odor after Cleansing No No -Anesthetic Used 4% Lidocaine 5% Lidocaine Solution Gel #3- R LAT KNEE -Combined with other wound No No -Current Size (cm) - Length 3 0.4 0.4 -Current Size (cm) - Width 4.2 1.3 1 -Current Size (cm) - Depth 0.1 0.1 0.3 -Total Square Cm 12.6 0.52 0.4 -Photo Taken No -Tunneling No -Undermining/Tunneling No -Circular Undermining No -Exudate Amt Small Medium -Exudate Type Serosanguineous Serosanguineous -Wound Margin Distinct, Distinct, Outline Outline Attached Attached -Granulation Amt Large (67-100%) None Present (0 %) -Granulation Quality Red -Slough/Fibrin Yes -Necrosis Amt Large (67-100%) -Necrotic Tissue Type Adherent Slough -Texture (Miroslava-wound Skin Appearance) Assessed Assessed, Scarring -Moisture (Miroslava-wound Skin Appearance) Assessed Assessed -Color (Miroslava-wound Skin Appearance) Assessed Assessed -Temperature (Miroslava-wound Skin No Abnormality No Abnormality Appearance) (Pt Warm) (Pt Warm) -Tenderness on Palpation (Miroslava-wound No Skin Appearance) -Ulcer Cleansing Soap and Water Soap and Water -Foul Odor after Cleansing No No -Anesthetic Used 4% Lidocaine 5% Lidocaine Solution Gel Lower Limb Edema Present No Yes Right Calf (cm) 55 50.2 49.1 Right Ankle (cm) 27.4 27.5 WC - Nurse 2 - General Ulcer CM Notes Start: 08/04/23 09:16 Freq: Status: Active Protocol: Activity Type Activity Date Activity User E-sign Co-sign Detail Recorded Client Recorded Date Recorded By Document 08/04/23 09:41 Laptop 08/04/23 09:48 Document 08/09/23 14:16 Laptop 08/09/23 14:20 Document 08/16/23 14:32 Laptop 08/16/23 14:37 08/04/23 08/09/23 08/16/23 09:41 14:16 14:32 Wound Center Nurse 2 2-right medial knee ulcer cluster -Time 09:45 -Correct Patient Yes No -Correct Side, Site, Position Yes No -Correct Procedure Yes No -Procedure Performed Yes No -Type of Procedure Debridement -Clinical Debridement Subcutaneous -Tissue Removed Subcutaneous -Post Debridement (cm) - Length 0.3 0 -Post Debridement (cm) - Width 0.3 0 -Post Debridement (cm) - Depth 0.1 0 -Total Square (Post) (cm) 0.09 0 -Area of Debridement (cm) - Length 0.3 0 -Area of Debridement (cm) - Width 0.3 0 -Total Square (Area) (cm) 0.09 0 -Tunneling No -Undermining/Tunneling No -Circular Undermining No -Wound/Ulcer Outcome Not Healed Healed- Epithelialized -Ulcer Cleansing Rinsed/ Irrigated with Saline -Foul Odor after Cleansing No -Bioengineered Tissue No -Bleeding Controlled with Pressure -Treatment Response Procedure Tolerated Well -Offloading No -Debridement - Subq, 1st 20sq cm No #1- R mid LOWER KNEE -Time 09:46 14:17 -Correct Patient Yes Yes No -Correct Side, Site, Position Yes Yes No -Correct Procedure Yes Yes No -Procedure Performed Yes Yes No -Type of Procedure Debridement Debridement -Clinical Debridement Subcutaneous Subcutaneous -Tissue Removed Subcutaneous Subcutaneous -Post Debridement (cm) - Length 1.3 0.2 0 -Post Debridement (cm) - Width 0.7 0.2 0 -Post Debridement (cm) - Depth 0.1 0.1 0 -Total Square (Post) (cm) 0.91 0.04 0 -Area of Debridement (cm) - Length 1.3 0.2 0 -Area of Debridement (cm) - Width 0.7 0.2 0 -Total Square (Area) (cm) 0.91 0.04 0 -Tunneling No No -Undermining/Tunneling No No -Circular Undermining No No -Wound/Ulcer Outcome Not Healed Not Healed Healed- Epithelialized -Ulcer Cleansing Rinsed/ Rinsed/ Irrigated with Irrigated with Saline Saline -Foul Odor after Cleansing No No -Bioengineered Tissue Yes No -Type of Bioengineered Tissue Epifix 18mm Disc -Expiration Date 03/27/28 -Product Lot Number [id number] -Percent Used 100 -Lot number of Saline Used [id number] -Bleeding Controlled with Pressure Pressure -Treatment Response Procedure Procedure Tolerated Well Tolerated Well -Offloading No No -Debridement - Subq, 1st 20sq cm No No -Apply Skin Sub - 1st 25 sq cm - Legs 1 -Epifix 18mm Disc 3 #3- R LAT KNEE -Time 09:44 14:16 14:33 -Correct Patient Yes Yes Yes -Correct Side, Site, Position Yes Yes Yes -Correct Procedure Yes Yes Yes -Procedure Performed Yes Yes Yes -Type of Procedure Debridement Debridement Debridement -Clinical Debridement Subcutaneous Subcutaneous Subcutaneous -Tissue Removed Subcutaneous Subcutaneous Subcutaneous -Post Debridement (cm) - Length 0.5 0.5 0.5 -Post Debridement (cm) - Width 1.3 1.3 1.5 -Post Debridement (cm) - Depth 0.2 0.2 0.2 -Total Square (Post) (cm) 0.65 0.65 0.75 -Area of Debridement (cm) - Length 0.5 0.5 0.5 -Area of Debridement (cm) - Width 1.3 1.3 1.5 -Total Square (Area) (cm) 0.65 0.65 0.75 -Tunneling No No No -Undermining/Tunneling No No No -Circular Undermining No No No -Wound/Ulcer Outcome Not Healed Not Healed Not Healed -Ulcer Cleansing Rinsed/ Rinsed/ Rinsed/ Irrigated with Irrigated with Irrigated with Saline Saline Saline -Foul Odor after Cleansing No No No -Bioengineered Tissue No No No -Bleeding Controlled with Pressure Pressure Pressure -Treatment Response Procedure Procedure Procedure Tolerated Well Tolerated Well Tolerated Well -Offloading No No No -Debridement - Subq, 1st 20sq cm Yes Yes Yes Pain Scale: 0-10 Numeric Is Patient Pain Free? Yes Yes Yes - Nurse 3 - General Ulcer D/C NN Start: 08/04/23 09:16 Freq: Status: Active Protocol: Activity Type Activity Date Activity User E-sign Co-sign Detail Recorded Client Recorded Date Recorded By Document 08/04/23 10:01 [facility] 08/04/23 10:02 Document 08/09/23 14:[address] [facility] Desktop 08/09/23 14:[address] [facility] Document 08/16/23 15:00 Desktop 08/16/23 15:01 08/04/23 08/09/23 08/16/23 10:01 14:45 15:00 Wound Care Center Nurse 3 2-right medial knee ulcer cluster -Primary Dressing Covered/Secured with Dry Gauze #1- R mid LOWER KNEE -Ulcer Cleansing Rinsed/ Irrigated with Saline -Foul Odor after Cleansing No -Primary Dressing Applied NonAdherent Contact Layer, Promogran -Primary Dressing Covered/Secured with Dry Gauze Dry Gauze & Roll Gauze, Secured with Tape -Promogran 0 #3- R LAT KNEE -Ulcer Cleansing Rinsed/ Not Cleansed Irrigated with Saline -Foul Odor after Cleansing No No -Primary Dressing Applied NonAdherent NonAdherent Contact Layer, Contact Layer, Promogran Promogran Tiffani Matter -Other Dressing ABD -Primary Dressing Covered/Secured with Dry Gauze Dry Gauze & Dry Gauze & Roll Gauze, Roll Gauze, Secured with Secured with Tape Tape -Promogran 1 -Promogran Tiffani Matter 1 RT leg -Lotion applied to leg before Yes compression wrap -Compression Wrap Mc Wrap Mc Wrap -Tubular Bandage Single Layer Single Layer Single Layer -Size of Tubigrip Used Size F Size F Size F -Size F ($) 1 1 1 Treatment Response Procedure Tolerated Well Pain Scale: 0-10 Numeric Is Patient Pain Free? Yes Yes Yes Teaching: Wound Center Dressing Your Wound -Person Taught Patient -Teaching Method Discussion, Demonstration -Response to teaching Verbalize understanding WC - Visit Discharge Discharge Condition Stable Stable Stable Ambulatory Status Ambulatory, Ambulatory, Ambulatory, Walker Walker Walker Transportation Private Auto Private Auto Private Auto Medication Reconcilliation completed & No Yes provided to patient/care provider Clinical Summary of Care Provided Yes Yes Assessment/Plan Assessment/Plan (1) Ulcer of right knee: CODE(S): L97.819 - Non-pressure chronic ulcer of other part of right lower leg with unspecified severity (2) Hematoma of right knee region: CODE(S): S80.01XA - Contusion of right knee, initial encounter (3) DM type 2, goal HbA1c < 7%: CODE(S): E11.9 - Type 2 diabetes mellitus without complications (4) Anemia of chronic disease: CODE(S): D63.8 - Anemia in other chronic diseases classified elsewhere (5) Anticoagulant long-term use: CODE(S): Z79.01 - termite helper (current) use of anticoagulants (6) On rivaroxaban therapy: CODE(S): Z79.01 - termite helper (current) use of anticoagulants (7) Obesity: CODE(S): E66.9 - Obesity, unspecified (8) Leg swelling: CODE(S): M79.89 - Other specified soft tissue disorders (9) Lymphedema of both lower extremities: CODE(S): I89.0 - Lymphedema, not elsewhere classified PLAN: Plan Patient was evaluated at the wound healing center today. Wound care - She has had 3 applications of EpiFix. Moistened Tiffani right lateral knee ulcer cover adaptic and top with gauze. Place adaptic covered with gauze over skin tears/blisters. Compression - Single tubigrip bilaterally topped with MC wrap. Stressed that she may need to rewrap the MC wrap several times a day as swelling goes down. She has Lymphedema. She needs better compression that the tubigrip and MC wrap. Will order her [place] wraps for compression. Stressed importance keeping legs elevated when sitting. Encouraged to sleep in a bed laying flat. Operative cultures were negative. She was treated with IV- antibiotics initially and was changed to Keflex at discharge and has finished them. Prealbumin was 12.5 on 04/20/23. Continue nutritional supplementation with protein to help the healing process. Patient is obese and has moderate swelling that can be problematic as it will slow down healing. Hgb was 7.1 at discharge. She was discharged on Iron supplementation. Hgb from 04/28/23 was 9.0. If there is a plateau during the healing process which is likely secondary to the swelling at this time, then we can always proceed with delayed closure with skin grafting. Will refer her to Dr. Hanna for further evaluation since her venous studies suggested further evaluation. She would really benefit from compression pumps due to the severity of her edema/lymphedema, even with her wearing consistent compression. Will apply to her insurance for compression pumps for her lymphedema/edema. Followup one week.
[2023-08-23 14:12] VITALS: BP 153/45; PULSE 67; RESP 18; TEMP 35.9; BMI 46.6
--- NOTE | 2023-08-23 16:20 | PCM.WC.PN ---
History of Present Illness Date of Service: 08/23/23 Chief Complaint: Nonhealing hematoma ulcer right knee History of Wound: The patient is a 72 y/o woman with a history of diabetes, was admitted to the hospital with increasing redness and swelling and pain in her right knee after a mechanical fall. She is on anticoagulation and with the fall, she sustained a hematoma. When she initially came to the ED, she was given a script for Keflex and Bactrim. When she failed outpatient therapy with po antibiotics, she was admitted the next time she came to the ED. She was started on Vancomycin and Rocephin. Her WBC was 5.6. Hgb was 8.6. Her HgbA1c was 6.9 on 04/13/23. Dr. Gallegos from Orthopedics was consulted for this hematoma right knee. He proceeded with an I&D and evacuation of the hematoma. Wound care was started and a few days later he took her back to surgery to attempt closure of the wound. Her skin was thin and not very strong. He had difficulty with closure because the skin was tearing as there was too much tension from the swelling and from her obesity. So a VAC was applied and he consulted me to evaluate this patient for chronic wound care and for surgical options for wound closure. Venous studies done on 08/13/23 - Sapheno-femoral junctions are bilaterally incompetent . Segmental valvular incompetence is noted within the great saphenous veins bilaterally. The right small saphenous vein is patent and incompetent. The accessory saphenous vein at the right knee is incompetent. Two accessory saphenous veins in the left mid-thigh are incompetent. An accessory saphenous vein at the left knee is incompetent. An incompetent concession cashier vein is noted in the right calf, located 5 centimeters proximal to the right medial malleolus. Pulsatile flow is noted in the deep venous system bilaterally, which may be indicative of elevated central venous pressure (i.e. congestive heart failure, pulmonary hypertension, etc.). Clinical correlation is advised. Arterial studies obtained 08/13/23 - Biphasic and triphasic Doppler waveforms are noted at ankle level on the right. Triphasic Doppler waveforms are noted at ankle level on the left. Pulse-volume recordings appear diminished at digital level on the left, but satisfactory at all other levels bilaterally. Resting ankle-brachial indices are normal bilaterally. The right digital-brachial index is mildly diminished. The left digital-brachial index is low-normal. Arterial flow appears normal at ankle level bilaterally. 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 Right JEFFREY - 1.00, left JEFFREY - 1.18. Wound care - Moistened Tiffani. Today she denies fever. Her appetite is ok. Progress of Wound: Right lateral knee ulcer is smaller. Her skin tears are almost healed also. Her miroslava wound is erythematous and her edema is worse this week. Objective Data Objective Data Vital Signs: Vital Signs Temp Pulse Resp BP O2 Del Method 96.6 F L 67 18 153/45 H Room Air 08/23/23 14:12 08/23/23 14:12 08/23/23 14:12 08/23/23 14:12 08/23/23 14:12 Oxygen Delivery Method Room Air Weight: 307 lb Body Mass Index (BMI) 46.6 Charges/Coding Procedures Integumentary [id number]: [id number] Zita subq tissue 20 sq cm/< Debridement Note Debridement Note Wound debrided: #1 Right lateral knee Laterality: Right Wound Grade/Stage: 2. Type of Debridement: Excisional debridement Anesthesia Used: 4% Lidocaine Solution Depth: Down to and including healthy tissue and in the subcutaneous layer Percentage of wound debrided: 100 Instrument Used: 3mm curette Tissue Removed: subcutaneous tissue. Severity: Fat Layer Exposed Bleeding Controlled with: Pressure and Compression and gauze Patient tolerated procedure: Patient tolerated procedure well Post-Debridement Measurements and Additional Note: Post-Debridement Measurements/Treatment - Nurse 1 - General Ulcer Assessment Start: 08/04/23 09:16 Freq: Status: Active Protocol: USHA Activity Type Activity Date Activity User E-sign Co-sign Detail Recorded Client Recorded Date Recorded By Document 08/04/23 09:16 Desktop 08/04/23 09:35 Document 08/09/23 14:08 Desktop 08/09/23 14:12 Document 08/16/23 14:02 [facility] Desktop 08/16/23 14:06 [facility] Document 08/23/23 14:12 Desktop 08/23/23 14:19 08/04/23 08/09/23 08/16/23 09:16 14:08 14:02 - Today's Visit Information Type of service Follow-up Visit Follow-up Visit Follow-up Visit (Physician/DRIVER MESSENGER (Physician/DRIVER MESSENGER (Physician/DRIVER MESSENGER ) ) ) Arrival Mode Ambulatory, Ambulatory Ambulatory, Walker Walker Transfer Assistance None None Patient Identification Verified (Name & Yes Yes Yes ) Patient Requires Transmission-Based No No Precautions Safety Precautions NA Height and Weight Body Mass Index (BMI) 46.6 46.6 46.6 BMI Classification Obese Obese Obese Vital Signs Temperature (97.8 F-99.1 F) 97.0 F L 96.2 F L 96.3 F L Temperature Source Temporal Temporal Temporal Pulse Rate (60-100) 63 66 58 L Pulse Location Monitor Monitor Monitor Respiratory Rate (12-18) 18 16 Respiratory rate source Observation Observation Oxygen Delivery Method Room Air Room Air Room Air Blood Pressure (90/60-120/80) 153/53 H 181/67 H 159/48 H Blood Pressure Mean (mm Hg) 86 105 85 Source Monitor Monitor Monitor Position Semi-Fowlers Sitting Sitting Blood Pressure Location Right Forearm Right Arm Right Arm History Since Last Visit- (Skip if this is Patient's initial visit) Have you changed medications since your No No No last visit? Any new allergies or adverse reactions No No No Had a fall/change in ADL's that may No No No increase risk of falls Signs or symptoms of abuse and/or No No No neglect since last visit Have you been in the hospital since your No No No last visit? Has dressing in place as prescribed Yes Yes Yes Has compression in place as prescribed Yes Yes Yes Has offloadiing in place as prescribed No No N/A Experienced any changes in pain level or No No No management Left Footwear Regular Shoe Regular Shoe Right Footwear Regular Shoe Regular Shoe Pain Scale: 0-10 Numeric Is Patient Pain Free? Yes Yes Yes 08/23/23 14:12 - Today's Visit Information Type of service Follow-up Visit (Physician/DRIVER MESSENGER ) Arrival Mode Ambulatory, Walker Transfer Assistance None Patient Identification Verified (Name & Yes ) Patient Requires Transmission-Based No Precautions Safety Precautions Height and Weight Body Mass Index (BMI) 46.6 BMI Classification Obese Vital Signs Temperature (97.8 F-99.1 F) 96.6 F L Temperature Source Temporal Pulse Rate (60-100) 67 Pulse Location Monitor Respiratory Rate (12-18) 18 Respiratory rate source Observation Oxygen Delivery Method Room Air Blood Pressure (90/60-120/80) 153/45 H Blood Pressure Mean (mm Hg) 81 Source Monitor Position Sitting Blood Pressure Location Right Arm History Since Last Visit- (Skip if this is Patient's initial visit) Have you changed medications since your No last visit? Any new allergies or adverse reactions No Had a fall/change in ADL's that may No increase risk of falls Signs or symptoms of abuse and/or No neglect since last visit Have you been in the hospital since your No last visit? Has dressing in place as prescribed Yes Has compression in place as prescribed Has offloadiing in place as prescribed Experienced any changes in pain level or management Left Footwear Regular Shoe Right Footwear Regular Shoe Pain Scale: 0-10 Numeric Is Patient Pain Free? Yes WC - Nurse 1 - General Ulcer Measurement Start: 08/04/23 09:16 Freq: Status: Active Protocol: Activity Type Activity Date Activity User E-sign Co-sign Detail Recorded Client Recorded Date Recorded By Document 08/04/23 09:16 [employer] 08/04/23 09:35 KW Document 08/09/23 14:08 Desktop 08/09/23 14:12 Document 08/16/23 14:02 [facility] Desktop 08/16/23 14:06 [facility] Document 08/23/23 14:12 Desktop 08/23/23 14:19 08/04/23 08/09/23 08/16/23 09:16 14:08 14:02 Wound Center Nurse 1 2-right medial knee ulcer cluster -Combined with other wound No -Current Size (cm) - Length 4 0.1 -Current Size (cm) - Width 11.2 0.1 -Current Size (cm) - Depth 0.2 0.1 -Total Square Cm 44.8 0.01 -Epithelialization Large 67-100% -Exudate Amt Medium -Exudate Type Serosanguineous -Wound Margin Distinct, Outline Attached -Granulation Amt Medium (34-66%) -Granulation Quality Red -Necrosis Amt Small (1-33%) -Necrotic Tissue Type Adherent Slough -Texture (Miroslava-wound Skin Appearance) Assessed, Localized Edema -Moisture (Miroslava-wound Skin Appearance) Assessed -Color (Miroslava-wound Skin Appearance) Assessed -Temperature (Miroslava-wound Skin No Abnormality Appearance) (Pt Warm) -Ulcer Cleansing Soap and Water -Anesthetic Used 4% Lidocaine Solution #1- R mid LOWER KNEE -Combined with other wound No No -Current Size (cm) - Length 1.0 0.1 0 -Current Size (cm) - Width 0.4 0.1 0 -Current Size (cm) - Depth 0.1 0.1 0 -Total Square Cm 0.40 0.01 0 -Photo Taken No -Epithelialization Large 67-100% Large 67-100% -Tunneling No No -Undermining/Tunneling No No -Circular Undermining No No -Exudate Amt Small None Present -Exudate Type Serosanguineous -Wound Margin Distinct, Outline Attached -Granulation Amt Large (67-100%) -Granulation Quality Red -Texture (Miroslava-wound Skin Appearance) Assessed Assessed Assessed, Scarring -Moisture (Miroslava-wound Skin Appearance) Assessed Assessed Assessed -Color (Miroslava-wound Skin Appearance) Assessed Assessed Assessed -Temperature (Miroslava-wound Skin No Abnormality Appearance) (Pt Warm) -Tenderness on Palpation (Miroslava-wound No Skin Appearance) -Ulcer Cleansing Soap and Water Soap and Water -Foul Odor after Cleansing No No -Anesthetic Used 4% Lidocaine 5% Lidocaine Solution Gel #3- R LAT KNEE -Combined with other wound No No -Current Size (cm) - Length 3 0.4 0.4 -Current Size (cm) - Width 4.2 1.3 1 -Current Size (cm) - Depth 0.1 0.1 0.3 -Total Square Cm 12.6 0.52 0.4 -Photo Taken No -Epithelialization -Tunneling No -Undermining/Tunneling No -Circular Undermining No -Exudate Amt Small Medium -Exudate Type Serosanguineous Serosanguineous -Wound Margin Distinct, Distinct, Outline Outline Attached Attached -Granulation Amt Large (67-100%) None Present (0 %) -Granulation Quality Red -Slough/Fibrin Yes -Necrosis Amt Large (67-100%) -Necrotic Tissue Type Adherent Slough -Texture (Miroslava-wound Skin Appearance) Assessed Assessed, Scarring -Moisture (Miroslava-wound Skin Appearance) Assessed Assessed -Color (Miroslava-wound Skin Appearance) Assessed Assessed -Temperature (Miroslava-wound Skin No Abnormality No Abnormality Appearance) (Pt Warm) (Pt Warm) -Tenderness on Palpation (Miroslava-wound No Skin Appearance) -Ulcer Cleansing Soap and Water Soap and Water -Foul Odor after Cleansing No No -Anesthetic Used 4% Lidocaine 5% Lidocaine Solution Gel Lower Limb Edema Present No Yes Right Calf (cm) 55 50.2 49.1 Right Ankle (cm) 27.4 27.5 08/23/23 14:12 Wound Center Nurse 1 2-right medial knee ulcer cluster -Combined with other wound -Current Size (cm) - Length -Current Size (cm) - Width -Current Size (cm) - Depth -Total Square Cm -Epithelialization -Exudate Amt -Exudate Type -Wound Margin -Granulation Amt -Granulation Quality -Necrosis Amt -Necrotic Tissue Type -Texture (Miroslava-wound Skin Appearance) -Moisture (Miroslava-wound Skin Appearance) -Color (Miroslava-wound Skin Appearance) -Temperature (Miroslava-wound Skin Appearance) -Ulcer Cleansing -Anesthetic Used #1- R mid LOWER KNEE -Combined with other wound -Current Size (cm) - Length -Current Size (cm) - Width -Current Size (cm) - Depth -Total Square Cm -Photo Taken -Epithelialization -Tunneling -Undermining/Tunneling -Circular Undermining -Exudate Amt -Exudate Type -Wound Margin -Granulation Amt -Granulation Quality -Texture (Miroslava-wound Skin Appearance) -Moisture (Miroslava-wound Skin Appearance) -Color (Miroslava-wound Skin Appearance) -Temperature (Miroslava-wound Skin Appearance) -Tenderness on Palpation (Miroslava-wound Skin Appearance) -Ulcer Cleansing -Foul Odor after Cleansing -Anesthetic Used #3- R LAT KNEE -Combined with other wound -Current Size (cm) - Length -Current Size (cm) - Width -Current Size (cm) - Depth -Total Square Cm -Photo Taken -Epithelialization Medium 34-66% -Tunneling No -Undermining/Tunneling No -Circular Undermining No -Exudate Amt -Exudate Type -Wound Margin -Granulation Amt -Granulation Quality -Slough/Fibrin -Necrosis Amt -Necrotic Tissue Type -Texture (Miroslava-wound Skin Appearance) -Moisture (Miroslava-wound Skin Appearance) -Color (Miroslava-wound Skin Appearance) -Temperature (Miroslava-wound Skin Appearance) -Tenderness on Palpation (Miroslava-wound Skin Appearance) -Ulcer Cleansing Soap and Water -Foul Odor after Cleansing -Anesthetic Used 5% Lidocaine Gel Lower Limb Edema Present Yes Right Calf (cm) 57.5 Right Ankle (cm) 29 WC - Nurse 2 - General Ulcer CM Notes Start: 08/04/23 09:16 Freq: Status: Active Protocol: Activity Type Activity Date Activity User E-sign Co-sign Detail Recorded Client Recorded Date Recorded By Document 08/04/23 09:41 Laptop 08/04/23 09:48 Document 08/09/23 14:16 Laptop 08/09/23 14:20 Document 08/16/23 14:32 Laptop 08/16/23 14:37 Document 08/23/23 14:49 Laptop 08/23/23 14:58 08/04/23 08/09/23 08/16/23 09:41 14:16 14:32 Wound Center Nurse 2 2-right medial knee ulcer cluster -Time 09:45 -Correct Patient Yes No -Correct Side, Site, Position Yes No -Correct Procedure Yes No -Procedure Performed Yes No -Type of Procedure Debridement -Clinical Debridement Subcutaneous -Tissue Removed Subcutaneous -Post Debridement (cm) - Length 0.3 0 -Post Debridement (cm) - Width 0.3 0 -Post Debridement (cm) - Depth 0.1 0 -Total Square (Post) (cm) 0.09 0 -Area of Debridement (cm) - Length 0.3 0 -Area of Debridement (cm) - Width 0.3 0 -Total Square (Area) (cm) 0.09 0 -Tunneling No -Undermining/Tunneling No -Circular Undermining No -Wound/Ulcer Outcome Not Healed Healed- Epithelialized -Ulcer Cleansing Rinsed/ Irrigated with Saline -Foul Odor after Cleansing No -Bioengineered Tissue No -Bleeding Controlled with Pressure -Treatment Response Procedure Tolerated Well -Offloading No -Debridement - Subq, 1st 20sq cm No #1- R mid LOWER KNEE -Time 09:46 14:17 -Correct Patient Yes Yes No -Correct Side, Site, Position Yes Yes No -Correct Procedure Yes Yes No -Procedure Performed Yes Yes No -Type of Procedure Debridement Debridement -Clinical Debridement Subcutaneous Subcutaneous -Tissue Removed Subcutaneous Subcutaneous -Post Debridement (cm) - Length 1.3 0.2 0 -Post Debridement (cm) - Width 0.7 0.2 0 -Post Debridement (cm) - Depth 0.1 0.1 0 -Total Square (Post) (cm) 0.91 0.04 0 -Area of Debridement (cm) - Length 1.3 0.2 0 -Area of Debridement (cm) - Width 0.7 0.2 0 -Total Square (Area) (cm) 0.91 0.04 0 -Tunneling No No -Undermining/Tunneling No No -Circular Undermining No No -Wound/Ulcer Outcome Not Healed Not Healed Healed- Epithelialized -Ulcer Cleansing Rinsed/ Rinsed/ Irrigated with Irrigated with Saline Saline -Foul Odor after Cleansing No No -Bioengineered Tissue Yes No -Type of Bioengineered Tissue Epifix 18mm Disc -Expiration Date 03/27/28 -Product Lot Number [id number] -Percent Used 100 -Lot number of Saline Used [id number] -Bleeding Controlled with Pressure Pressure -Treatment Response Procedure Procedure Tolerated Well Tolerated Well -Offloading No No -Debridement - Subq, 1st 20sq cm No No -Apply Skin Sub - 1st 25 sq cm - Legs 1 -Epifix 18mm Disc 3 #3- R LAT KNEE -Time 09:44 14:16 14:33 -Correct Patient Yes Yes Yes -Correct Side, Site, Position Yes Yes Yes -Correct Procedure Yes Yes Yes -Procedure Performed Yes Yes Yes -Type of Procedure Debridement Debridement Debridement -Clinical Debridement Subcutaneous Subcutaneous Subcutaneous -Tissue Removed Subcutaneous Subcutaneous Subcutaneous -Post Debridement (cm) - Length 0.5 0.5 0.5 -Post Debridement (cm) - Width 1.3 1.3 1.5 -Post Debridement (cm) - Depth 0.2 0.2 0.2 -Total Square (Post) (cm) 0.65 0.65 0.75 -Area of Debridement (cm) - Length 0.5 0.5 0.5 -Area of Debridement (cm) - Width 1.3 1.3 1.5 -Total Square (Area) (cm) 0.65 0.65 0.75 -Tunneling No No No -Undermining/Tunneling No No No -Circular Undermining No No No -Wound/Ulcer Outcome Not Healed Not Healed Not Healed -Ulcer Cleansing Rinsed/ Rinsed/ Rinsed/ Irrigated with Irrigated with Irrigated with Saline Saline Saline -Foul Odor after Cleansing No No No -Bioengineered Tissue No No No -Bleeding Controlled with Pressure Pressure Pressure -Treatment Response Procedure Procedure Procedure Tolerated Well Tolerated Well Tolerated Well -Offloading No No No -Debridement - Subq, 1st 20sq cm Yes Yes Yes Pain Scale: 0-10 Numeric Is Patient Pain Free? Yes Yes Yes 08/23/23 14:49 Wound Center Nurse 2 2-right medial knee ulcer cluster -Time -Correct Patient -Correct Side, Site, Position -Correct Procedure -Procedure Performed -Type of Procedure -Clinical Debridement -Tissue Removed -Post Debridement (cm) - Length -Post Debridement (cm) - Width -Post Debridement (cm) - Depth -Total Square (Post) (cm) -Area of Debridement (cm) - Length -Area of Debridement (cm) - Width -Total Square (Area) (cm) -Tunneling -Undermining/Tunneling -Circular Undermining -Wound/Ulcer Outcome -Ulcer Cleansing -Foul Odor after Cleansing -Bioengineered Tissue -Bleeding Controlled with -Treatment Response -Offloading -Debridement - Subq, 20sq cm #1- R mid LOWER KNEE -Time -Correct Patient -Correct Side, Site, Position -Correct Procedure -Procedure Performed -Type of Procedure -Clinical Debridement -Tissue Removed -Post Debridement (cm) - Length -Post Debridement (cm) - Width -Post Debridement (cm) - Depth -Total Square (Post) (cm) -Area of Debridement (cm) - Length -Area of Debridement (cm) - Width -Total Square (Area) (cm) -Tunneling -Undermining/Tunneling -Circular Undermining -Wound/Ulcer Outcome -Ulcer Cleansing -Foul Odor after Cleansing -Bioengineered Tissue -Type of Bioengineered Tissue -Expiration Date -Product Lot Number -Percent Used -Lot number of Saline Used -Bleeding Controlled with -Treatment Response -Offloading -Debridement - Subq, 20sq cm -Apply Skin Sub - 1st 25 sq cm - Legs -Epifix 18mm Disc #3- R LAT KNEE -Time 14:50 -Correct Patient Yes -Correct Side, Site, Position Yes -Correct Procedure Yes -Procedure Performed Yes -Type of Procedure Debridement -Clinical Debridement Subcutaneous -Tissue Removed Subcutaneous -Post Debridement (cm) - Length 0.2 -Post Debridement (cm) - Width 1.0 -Post Debridement (cm) - Depth 0.2 -Total Square (Post) (cm) 0.20 -Area of Debridement (cm) - Length 0.2 -Area of Debridement (cm) - Width 1.0 -Total Square (Area) (cm) 0.20 -Tunneling No -Undermining/Tunneling No -Circular Undermining No -Wound/Ulcer Outcome Not Healed -Ulcer Cleansing Rinsed/ Irrigated with Saline -Foul Odor after Cleansing No -Bioengineered Tissue No -Bleeding Controlled with Pressure -Treatment Response Procedure Tolerated Well -Offloading No -Debridement - Subq, 1st 20sq cm Yes Pain Scale: 0-10 Numeric Is Patient Pain Free? Yes WC - Nurse 3 - General Ulcer D/C NN Start: 08/04/23 09:16 Freq: Status: Active Protocol: Activity Type Activity Date Activity User E-sign Co-sign Detail Recorded Client Recorded Date Recorded By Document 08/04/23 10:01 [employer] Desktop 08/04/23 10:02 KW Document 08/09/23 14:45 [facility] Desktop 08/09/23 14:47 [facility] Document 08/16/23 15:00 Desktop 08/16/23 15:01 Document 08/23/23 14:58 Laptop 08/23/23 14:59 08/04/23 08/09/23 08/16/23 10:01 14:45 15:00 Wound Care Center Nurse 3 2-right medial knee ulcer cluster -Primary Dressing Covered/Secured with Dry Gauze #1- R mid LOWER KNEE -Ulcer Cleansing Rinsed/ Irrigated with Saline -Foul Odor after Cleansing No -Primary Dressing Applied NonAdherent Contact Layer, Promogran -Primary Dressing Covered/Secured with Dry Gauze Dry Gauze & Roll Gauze, Secured with Tape -Promogran 0 #3- R LAT KNEE -Ulcer Cleansing Rinsed/ Not Cleansed Irrigated with Saline -Foul Odor after Cleansing No No -Primary Dressing Applied NonAdherent NonAdherent Contact Layer, Contact Layer, Promogran Promogran Tiffani Matter -Other Dressing ABD -Primary Dressing Covered/Secured with Dry Gauze Dry Gauze & Dry Gauze & Roll Gauze, Roll Gauze, Secured with Secured with Tape Tape -Mepilex Border -Promogran 1 -Promogran Tiffani Matter 1 RT leg -Lotion applied to leg before Yes compression wrap -Compression Wrap Mc Wrap Mc Wrap -Tubular Bandage Single Layer Single Layer Single Layer -Size of Tubigrip Used Size F Size F Size F -Size F ($) 1 1 1 Treatment Response Procedure Tolerated Well Pain Scale: 0-10 Numeric Is Patient Pain Free? Yes Yes Yes Teaching: Wound Center Dressing Your Wound -Person Taught Patient -Teaching Method Discussion, Demonstration -Response to teaching Verbalize understanding WC - Visit Discharge Discharge Condition Stable Stable Stable Ambulatory Status Ambulatory, Ambulatory, Ambulatory, Walker Walker Walker Transportation Private Auto Private Auto Private Auto Medication Reconcilliation completed & No Yes provided to patient/care provider Clinical Summary of Care Provided Yes Yes 08/23/23 14:58 Wound Care Center Nurse 3 2-right medial knee ulcer cluster -Primary Dressing Covered/Secured with #1- R mid LOWER KNEE -Ulcer Cleansing -Foul Odor after Cleansing -Primary Dressing Applied -Primary Dressing Covered/Secured with -Promogran #3- R LAT KNEE -Ulcer Cleansing Rinsed/ Irrigated with Saline -Foul Odor after Cleansing No -Primary Dressing Applied Mepilex Border, Promogran Tiffani Matter -Other Dressing -Primary Dressing Covered/Secured with -Mepilex Border 1 -Promogran -Promogran Tiffani Matter 1 RT leg -Lotion applied to leg before compression wrap -Compression Wrap Mc Wrap -Tubular Bandage Single Layer -Size of Tubigrip Used Size F -Size F ($) 1 Treatment Response Pain Scale: 0-10 Numeric Is Patient Pain Free? Yes Teaching: Wound Center Dressing Your Wound -Person Taught -Teaching Method -Response to teaching WC - Visit Discharge Discharge Condition Stable Ambulatory Status Ambulatory, Walker Transportation Private Auto Medication Reconcilliation completed & Yes provided to patient/care provider Clinical Summary of Care Provided Yes Assessment/Plan Assessment/Plan (1) Ulcer of right knee: CODE(S): L97.819 - Non-pressure chronic ulcer of other part of right lower leg with unspecified severity (2) Hematoma of right knee region: CODE(S): S80.01XA - Contusion of right knee, initial encounter (3) DM type 2, goal HbA1c < 7%: CODE(S): E11.9 - Type 2 diabetes mellitus without complications (4) Anemia of chronic disease: CODE(S): D63.8 - Anemia in other chronic diseases classified elsewhere (5) Anticoagulant long-term use: CODE(S): Z79.01 - supervisor intermediates (current) use of anticoagulants (6) On rivaroxaban therapy: CODE(S): Z79.01 - supervisor intermediates (current) use of anticoagulants (7) Obesity: CODE(S): E66.9 - Obesity, unspecified (8) Leg swelling: CODE(S): M79.89 - Other specified soft tissue disorders (9) Lymphedema of both lower extremities: CODE(S): I89.0 - Lymphedema, not elsewhere classified PLAN: Plan Patient was evaluated at the wound healing center today. Wound care - She has had 3 applications of EpiFix. Moistened Tiffani right lateral knee ulcer cover adaptic and top with gauze. Place adaptic covered with gauze over skin tears/blisters. Compression - Single tubigrip bilaterally topped with MC wrap. Stressed that she may need to rewrap the MC wrap several times a day as swelling goes down. She has Lymphedema. She needs better compression that the tubigrip and MC wrap. Will order her [place] wraps for compression. Stressed importance keeping legs elevated when sitting. Encouraged to sleep in a bed laying flat. Operative cultures were negative. She was treated with IV- antibiotics initially and was changed to Keflex at discharge and has finished them. Prealbumin was 12.5 on 04/20/23. Continue nutritional supplementation with protein to help the healing process. Patient is obese and has moderate swelling that can be problematic as it will slow down healing. Hgb was 7.1 at discharge. She was discharged on Iron supplementation. Hgb from 04/28/23 was 9.0. If there is a plateau during the healing process which is likely secondary to the swelling at this time, then we can always proceed with delayed closure with skin grafting. Will refer her to Dr. Hanna for further evaluation since her venous studies suggested further evaluation. She would really benefit from compression pumps due to the severity of her edema/lymphedema, even with her wearing consistent compression. Will apply to her insurance for compression pumps for her lymphedema/edema. Followup 2 weeks.
== END 2023-08-26 23:59 | disposition home or self-care (01) ==
LOC: WC 14:15
PROVIDERS: Referring Provider Surgery; Visit Provider Nurse Practitioner Family
DX: L97.812 Non-pressure chronic ulcer of other part of right lower leg with fat layer exposed (principal); Z68.42 Body mass index [BMI] 45.0-49.9, adult; E11.9 Type 2 diabetes mellitus without complications; S80.01XA Contusion of right knee, initial encounter; I89.0 Lymphedema, not elsewhere classified; D63.8 Anemia in other chronic diseases classified elsewhere; Z79.01 Long term (current) use of anticoagulants; E66.9 Obesity, unspecified; M79.89 Other specified soft tissue disorders; M25.561 Pain in right knee; R22.42 Localized swelling, mass and lump, left lower limb
CPT/HCPCS: 11042; 15271; 93923; 93970; Q4186

== ENCOUNTER 2023-08-26 15:44 | Emergency (ER) | payer MEDICARE, SELFPAY ==
[2023-08-26 15:45] VITALS: BP 157/47; PULSE 60; RESP 18; TEMP 35.8; O2SAT 97
--- NOTE | 2023-08-26 16:25 | RAD_ITS ---
STUDY: X-RAY - LEFT KNEE REASON FOR EXAM: Female, 72 years old. fall TECHNIQUE: 4 view(s) of the knee. COMPARISON: None. FINDINGS: Normal visualized distal femur. Normal visualized proximal tibia and fibula. Normal proximal tibiofibular articulation. Normal medial femorotibial compartment. Normal lateral femorotibial compartment. There is moderate degenerative arthrosis of the patellofemoral articulation. Soft tissue swelling anteriorly. Vascular calcifications. RAD/Knee 4 or More Views IMPRESSION: Anterior soft tissue swelling. No fracture noted. Electronically Signed: Navid Perez MD at 16:55 EST ,
--- NOTE | 2023-08-26 18:59 | EDS_ITS ---
HPI History of Present Illness Chief Complaint: Lower Extremity Injury Detail of Chief Complaint: Injury left knee Informant: patient and family Occured/Mechanism Mechanism/Context: Yes blunt trauma Onset/Context/Timing Onset: Yesterday Context: Sudden Onset Timing: Continuous Quality of Pain: Aching Location: Anterior left knee Current Severity: Mild Maximum Severity: Moderate Worsened by: Movement and palpation of Relieved by: Nothing Associated Symptoms Associated Symptoms: Negative for Parasthesia, Weakness or Loss of Funtion Narrative Narrative: Patient is a 72-year-old woman with history of paroxysmal atrial fibrillation on long-term anticoagulant, coronary disease with recent stent placement on Plavix, hypothyroidism, essential hypertension, hyperlipidemia type 2 diabetes who presents after fall. She presents because of pain and swelling discoloration of her left knee. She denies head trauma. She denies neck pain. She denies paresthesia, anesthesia motors upper or lower extremity. Tetanus Immunization: 5-10 years Prior similar symptoms: Yes Recent Illness/Hospitalization: No PFSH PFSH Medical History Anemia Anemia of chronic disease Anticoagulant long-term use Anxiety and depression Arthritis Atrial fibrillation CAD (coronary artery disease) CPAP (continuous positive airway pressure) dependence Diabetes mellitus DM type 2, goal HbA1c < 7% DVT (deep venous thrombosis) Failure of outpatient treatment Hematoma of right knee region History of stress incontinence Hx of necrotizing fasciitis Hypertension Hypothyroidism Insulin dependent diabetes mellitus Leg swelling Open wound of knee Open wound of right knee with complication PAF (paroxysmal atrial fibrillation) Restless legs Stage 3b chronic kidney disease (CKD) Traumatic hematoma of right knee Ulcer of right knee Wears dentures Home Medications atorvastatin 40 mg tablet 40 mg PO QHS Cholesterol 09/07/14 [History Last Taken 04/06/23] fenofibric acid (choline) 135 mg capsule,delayed release (Trilipix) 135 mg PO DAILY Cholesterol 09/07/14 [History Last Taken 04/06/23] levothyroxine 175 mcg tablet 200 mcg PO DAILY Thyroid 04/12/20 [History Last Taken 04/06/23] bumetanide 0.5 mg tablet 0.5 mg PO DAILY BP 02/17/21 [History Last Taken 04/06/23] insulin glargine U-300 conc 300 unit/mL (1.5 mL) subcutaneous pen (Toujeo SoloStar U-300 Insulin) 35 unit subcut QHS Diabetes 02/17/21 [History Last Taken 04/06/23] insulin lispro 100 unit/mL subcutaneous solution (Humalog U-100 Insulin) 18 unit subcut BREAKFAST Diabetes 02/17/21 [History Last Taken 04/06/23] acetaminophen 500 mg tablet 1,000 mg (2 x 500 mg) PO Q6H PRN PRN Pain Score 1-5 #0 tabs 05/14/21 [Rx Last Taken 04/06/23] insulin lispro 100 unit/mL subcutaneous pen 25 unit subcut LUNCH diabetes 05/30/21 [History Last Taken 04/06/23] amiodarone 200 mg tablet 100 mg PO DAILY hrt 11/12/21 [History Last Taken 04/06/23] lisinopril 10 mg tablet 20 mg PO DAILY bp 04/11/23 [History Last Taken Unknown] ofloxacin 0.3 % eye drops 1 drp ophthalmic (eye) Q6H eye 04/11/23 [History Last Taken Unknown] prednisolone acetate 1 % eye drops,suspension 1 drp ophthalmic (eye) BID eye 04/11/23 [History Last Taken Unknown] sodium chloride 5 % eye drops 1 drp ophthalmic (eye) BID eye 04/11/23 [History Last Taken Unknown] ascorbic acid (vitamin C) 500 mg tablet 500 mg PO BID 30 days #60 tabs 04/21/23 [Rx Last Taken Unknown] ferrous sulfate 325 mg (65 mg iron) tablet (FeroSul) 325 mg PO DAILY@1200 #30 tabs 04/21/23 [Rx Last Taken Unknown] rivaroxaban 10 mg tablet (Xarelto) 10 mg PO DINNER 30 days #30 tabs 04/21/23 [Rx Last Taken Unknown] aspirin 81 mg tablet,delayed release (Adult Aspirin Regimen) 81 mg PO DAILY 05/20/23 [History Last Taken Unknown] cefdinir 300 mg capsule 300 mg PO BID #10 caps 05/22/23 [Rx Last Taken Unknown] isosorbide mononitrate 30 mg tablet,extended release 24 hr 30 mg PO DAILY #60 t abs 05/22/23 [Rx Last Taken Unknown] hydrocodone-acetaminophen 5-325mg 5mg-325mg 1 tab PO Q6H PRN PRN Pain 5 days #15 TABLETS 08/26/23 [Rx Last Taken Unknown] Allergy/AdvReac Type Severity Reaction Status Date / Time hydralazine HCl Allergy Other Verified 08/26/23 15:44 [From Apresoline] ondansetron [From Zofran] AdvReac Nausea Verified 08/26/23 15:44 Family History Mother Diabetes Heart disease Hypertension Father Diabetes Heart disease Hypertension Surgical History History of cardiac catheterization History of cardiac radiofrequency ablation History of hip replacement History of quadruple bypass History of total left hip replacement Hx of CABG Hx of cholecystectomy Hx of colonoscopy Hx of tubal ligation Social History household members: none housing: house number of children: 3 Smoking Status: Former smoker alcohol intake: never substance use type: does not use ROS ROS ED Constitutional Constitutional ED: Denies chills, fever(s), subjective, sweats or weight loss Eyes Eyes: Denies blurry vision or change in vision Cardiovascular Cardiovascular: Denies chest pain or palpitations Respiratory/Chest Respiratory/Chest: Denies cough, dyspnea or dyspnea on exertion Gastrointestinal Gastrointestinal: Denies nausea or vomiting Genitourinary Genitourinary ED: Denies dysuria, hematuria or urinary frequency Musculoskeletal Musculoskeletal: Reports back pain and other Details: Knee pain ; Denies arthralgias, myalgias or neck pain Integumentary Reports other Details: Present bruising over the left patellar region Neurologic Neurologic: Denies paresthesias or weakness Hematologic/Lymphatic Hematologic/Lymphatic: Reports easy bleeding and easy bruising EXAM Physical Exam Const Vital Signs: 08/26/23 15:45 Temperature 96.4 F L Temperature Source Temporal Pulse Rate 60 Respiratory Rate 18 Blood Pressure 157/47 H Blood Pressure Mean 83 Pulse Ox 97 Oxygen Delivery Method Room Air Positive well nourished, well developed and obese General Appearance ED: well developed Nutritional Appearance: obese HEENT Reports moist mucous membranes normocephalic and atraumatic Eyes PERRL Eyes Narrative: Extraocular muscles intact. Sclera is anicteric. Neck full ROM Chest Wall palpation of chest normal Resp normal respiratory effort, no retractions and clear to auscultation bilaterally Cardio no murmurs Rhythm: abnormal rhythm irregularly irregular GI non-tender, non-distended and no masses Inspection: abdominal distention Palpation: soft Back/Spine no CVA tenderness Thoracic Spine / Upper Back: Negative for thoracic spinal tenderness Extremity full ROM; Negative for normal to inspection Extremity Narrative: Significant soft tissue swelling and ecchymosis of the left knee region. There is blisters noted. Blisters do not appear infected. There is no warmth, induration or lymphangitis. There is no popliteal lymphadenopathy. Patient does have venous stasis dermatitis of the left lower leg. She had a wrap on which was removed. She able to extend to 180 degrees and flex to approximately 120 degrees. She complains of pain and limited flexion due to swelling. The patella is not ballotable. There is no obvious intra-articular effusion noted. There is a significant extra-articular effusion noted. General Extremety ED: Yes edema General Extremity: edema Neuro oriented x3, CN's II-XII intact bilaterally and moves all extremities Sensorium / Orientation: alert Psych mental status grossly normal Skin Skin Narrative: Stools and bruising as previously described there is no evidence of infection. MDM MDM MDM Narrative Medical decision making narrative: Was obtained to evaluate contusion versus fracture. Three-view x-ray reveals asymmetry of the joint with minimal arthritic changes. There is no intra- articular effusion noted. There is soft tissue swelling noted anterior to the patella. Radiography Chest X-Ray - ED: Read by ED Physician (X-ray of the knee was independent reviewed interpreted by me. This is documented under the MDM portion of the chart.) Diagnostic Testing: Clinical Impression(s) from Imaging Studies Knee X-Ray 08/26/23 16:25 IMPRESSION: Anterior soft tissue swelling. No fracture noted. Electronically Signed: Navid Perez MD at 16:55 EST , Treatment and Re-Evaluation Narrative: Patient has diabetes, hypertension and kidney disease with with opiate analgesia. She states she had to see Dr. Gallegos and Dr. Bentley in the past to have hematoma evacuated from the right leg after a fall. Patient was informed to hold her Xarelto for the next 3 days. She cannot hold her Plavix since she had a recent stent placed. Discharge Plan Triage Chief Complaint: Lower Extremity Injury ED Provider: Jose Manuel Burger Dx/Rx/DC Orders Clinical Impression: Traumatic hematoma of left knee, Benign essential hypertension, History of coronary artery disease, Hyperlipidemia, Diabetes mellitus with diabetic polyneuropathy, Anticoagulant long-term use, Leg swelling, Antiplatelet or antithrombotic long-term use Instructions: ED Contusion, Lower Extremity Prescriptions: New hydrocodone-acetaminophen [hydrocodone-acetaminophen] 5-325 mg tablet 1 tab PO Q6H PRN PRN (Reason: Pain) 5 Days Qty: 15 0RF No Action atorvastatin 40 MG tablet 40 mg PO QHS Patient Comments: CHOLESTEROL LOWERING fenofibric acid (choline) [Trilipix] 135 MG capsule,delayed release(DR/EC) 135 mg PO DAILY Patient Comments: cholesterol levothyroxine 175 MCG tablet 200 mcg PO DAILY bumetanide 0.5 mg Tablet 0.5 mg PO DAILY insulin lispro [Humalog U-100 Insulin] 100 unit/mL Solution 18 unit SUBCUT BREAKFAST Toujeo SoloStar U-300 Insulin 300 unit/mL (1.5 mL) Insulin Pen 35 unit SUBCUT QHS acetaminophen 500 mg Tablet 1,000 mg PO Q6H PRN PRN (Reason: Pain Score 1-5) Qty: 0 0RF insulin lispro 100 unit/mL Insulin Pen 25 unit SUBCUT LUNCH amiodarone 200 mg tablet 100 mg PO DAILY Patient Comments: TAKE 1 TABLET DAILY lisinopril 10 mg tablet 20 mg PO DAILY Patient Comments: TAKE 1 TABLET DAILY prednisolone acetate 1 % drops,suspension 1 drp ophthalmic (eye) BID Patient Comments: Instill 1 drop in right eye(s) twice daily sodium chloride 5 % drops 1 drp ophthalmic (eye) BID Patient Comments: instill 1 (ONE) DROP IN THE RIGHT EYE TWICE DAILY ofloxacin 0.3 % drops 1 drp ophthalmic (eye) Q6H Patient Comments: APPLY 1 (ONE) DROP IN OPERATIVE EYE FOUR TIMES DAILY, START AFTER SURGERY ferrous sulfate [FeroSul] 325 mg (65 mg iron) Tablet 325 mg PO DAILY@1200 Qty: 30 2RF ascorbic acid (vitamin C) 500 mg tablet 500 mg PO BID 30 Days Qty: 60 2RF Xarelto 10 mg Tablet 10 mg PO DINNER 30 Days Qty: 30 0RF Rx Instructions: Discontinue if platelet count drops less than 50,000 or hemoglobin less than 7.0 g% aspirin [Adult Aspirin Regimen] 81 mg tablet,delayed release (DR/EC) 81 mg PO DAILY isosorbide mononitrate 30 mg Tablet Extended Release 24 Hr 30 mg PO DAILY Qty: 60 0RF cefdinir 300 mg capsule 300 mg PO BID Qty: 10 0RF Primary Care Provider: Maggi Chicas Referrals: Tyrese Gallegos DO [Med Staff - Active Staff] - 1 Week if not improving Murray Bentley MD [Med Staff - Active Staff] - 3-5 Days Maggi Chicas DO [Primary Care Provider] - Activity Restrictions/Additional Instructions: 1. Apply ice to your left knee 6-10 times a day 2. Do not take Xarelto for the next 3 days 3. If you are concerned that the area is infected please return to the emergency department Disposition Disposition: Home, Self Care
[2023-08-26] MEDS: HYDROcodone Bitartrate/Apap 5/325 Tablet PO (19:06)
== END 2023-08-26 19:22 | disposition home or self-care (01) ==
PROVIDERS: Emergency Provider Emergency Medicine; Visit Provider Emergency Medicine
DX: S80.02XA Contusion of left knee, initial encounter (principal); E11.22 Type 2 diabetes mellitus with diabetic chronic kidney disease; E11.42 Type 2 diabetes mellitus with diabetic polyneuropathy; I48.0 Paroxysmal atrial fibrillation; Z79.4 Long term (current) use of insulin; N18.32 Chronic kidney disease, stage 3b; I12.9 Hypertensive chronic kidney disease with stage 1 through stage 4 chronic kidney disease, or unspecified chronic kidney disease; I25.10 Atherosclerotic heart disease of native coronary artery without angina pectoris; Z87.891 Personal history of nicotine dependence; E78.5 Hyperlipidemia, unspecified; Z79.01 Long term (current) use of anticoagulants; M79.89 Other specified soft tissue disorders; Z79.02 Long term (current) use of antithrombotics/antiplatelets; Z79.899 Other long term (current) drug therapy; E03.9 Hypothyroidism, unspecified; Z79.82 Long term (current) use of aspirin; Z96.642 Presence of left artificial hip joint; Z95.1 Presence of aortocoronary bypass graft; Z90.49 Acquired absence of other specified parts of digestive tract
CPT/HCPCS: 73564; 99282

== ENCOUNTER 2023-09-01 12:18 | Inpatient (IN) | payer MEDICARE, SELFPAY ==
[2023-09-01 12:19] VITALS: BP 174/66; PULSE 66; RESP 14; TEMP 36.3; O2SAT 100
[2023-09-01 14:28] VITALS: BMI 46.5
[2023-09-01] MEDS: 0.9% Normal Saline (1000mL) 1,000 ML 999 ML IV (14:36)
[2023-09-01 14:38] LABS: Absolute Lymphocyte Count 0.38 X10^3/uL (0.83-4.51); Absolute Neutrophil Count 5.4 X10^3/uL (2.0-7.7); Basophil# 0.04 X10^3/uL; Basophil% 0.6 % (0-1); Eosinophil# 0.06 X10^3/uL; Eosinophils% 0.9 % (0-5); Hematocrit 23.3 % (37-47); Hemoglobin 6.7 g/dL (12.0-15.0); Lymphocyte # 0.38 X10^3/ul (0.83-4.51); Lymphocyte % 5.9 % (19-41); Mean Corp Hgb Conc 28.8 g/dL (32-36); Mean Corpuscular Hgb 28.3 pg (27.0-32.0); Mean Corpuscular Volume 98.3 fL (81-99); Mean Platelet Vol. 10.3 fl (6.2-12.0); Monocyte# 0.51 X10^3/uL; NRBC Flagged by Analyzer 0 % (0-5); Neutrophil # 5.37 X10^3/uL (2.7-7.7); Neutrophil % 83.8 % (47-70); POSITIVE DIFFERENTIAL YES; Platelet Count 354 K/mm3 (150-450); RBC Distribution Width CV 16.6 % (11.6-14.6); RBC Distribution Width SD 58.4 fl (35.1-43.9); Red Blood Count 2.37 M/mm3 (4.2-5.4); White Blood Count 6.4 K/mm3 (4.4-11.0)
[2023-09-01 14:39] LABS: Differential Indicated SCAN CRITERIA MET
[2023-09-01] MEDS: HYDROcodone Bitartrate/Apap 5/325 Tablet PO (14:40)
[2023-09-01 14:51] LABS: International Normalized Ratio 1.3; Prothrombin Time (Protime)PT. 16.4 SECONDS (11.7-14.9)
[2023-09-01 14:52] LABS: ALB/GLOB Ratio 0.7 RATIO (0.9-2.4); AST(SGOT) 17 U/L (15-37); Alanine Aminotransfer ALT/SGPT 15 U/L (13-56); Albumin, Serum 3.2 g/dL (3.2-5.0); Alkaline Phosphatase 71 U/L (45-117); Anion Gap 8 (5-15); BUN 27 mg/dL (7-18); Calcium,Total 8.6 mg/dL (8.5-10.1); Chloride 106 mmol/L (98-107); EST Glomerular Filtration Rate 36 mL/min (>60); Est Glom Filt Rate - Afr Amer 44 mL/min (>60); Estimated Creatinine Clearance 32.97 ml/min; Globulin 4.4 g/dL (2.2-4.2); Glucose 328 mg/dL (74-106); Partial Thromboplast Time 38.6 Seconds (24.1-36.2); Potassium 4.5 mmol/L (3.5-5.1); Protein, Total 7.6 g/dL (6.4-8.2); Sodium Level 136 mmol/L (136-145)
--- NOTE | 2023-09-01 15:00 | RAD_ITS ---
STUDY: X-RAY - PELVIS AND LEFT HIP REASON FOR EXAM: Female, 72 years old. More localized left hip pain. TECHNIQUE: 3 views of the pelvis and hip. COMPARISON: None. FINDINGS: There is a non-specific bowel gas pattern. There are atherosclerotic vascular calcifications of the pelvic arteries. Degenerative changes are seen in the lower lumbar spine. There is narrowing with cortical sclerosis and osteophyte formation of the sacroiliac joint consistent with degenerative osteoarthritic changes. Normal bilateral superior and inferior pubic rami. There are degenerative changes of the pubic symphysis with articular narrowing and sclerosis. Normal bilateral ischial tuberosities. Prior total left hip replacement. RAD/HIP, UNI W/ Pelvis 2-3 Views IMPRESSION: Status post left total hip replacement. No acute amount is seen. Electronically Signed: Ian Buchanan MD at 15:17 EST ,
[2023-09-01 15:01] LABS: Lactic Acid 1.6 mmol/L (0.4-1.9)
--- NOTE | 2023-09-01 15:19 | CT_ITS ---
EXAM: CT LEFT LOWER EXTREMITY WITH INTRAVENOUS CONTRAST CLINICAL INDICATION: left knee pain TECHNIQUE: Helically acquired images were obtained of the left lower extremity with intravenous contrast. 2-D reformats were performed by the technologist. This CT exam was performed using one or more of the following dose reduction techniques: automated exposure control, adjustment of the mA and/or kV according to patient size, and/or use of iterative reconstruction technique. CONTRAST: IV 100mL Isovue-300 COMPARISON: No relevant prior studies available. FINDINGS: BONES/JOINTS: Unremarkable. No acute fracture. No subluxation. Normal alignment. Preservation of the joint space. No sclerotic or destructive changes. SOFT TISSUES: There is a hyperdense collection in the subcutaneous tissues of the medial lower leg that measures roughly 12.0 x 3.8 x 13.3 cm may represent a subcutaneous hematoma. There is no osseous abnormality identified. There is no evidence of active bleeding. No soft tissue swelling or gas. No radiopaque foreign body. CT/Extremity Lower WITH Contrast IMPRESSION: 1. No acute osseous abnormalities. 2. Hyperdense collection in the subcutaneous tissues of the medial/anterior lower leg compatible with a hematoma. There is no active bleeding identified. Electronically Signed: Darwin Chavez MD at 16:31 EST ,
[2023-09-01] MEDS: Clindamycin 900 MG/50 ML BAG 75 MG IV (15:23)
--- NOTE | 2023-09-01 15:59 | EX.ED.DYSGE1 ---
HPI History of Present Illness Chief Complaint: Lower Extremity Injury Narrative Narrative: Patient is a 72-year-old female who is presenting to the ER with chief complaint of left knee pain, left hip pain, left lower back pain. Patient has mild redness over the left knee. Patient has a venous ulcer that has opened up and has been draining straw/yellowish fluid over the left medial knee. Patient has acute on chronic venous stasis to lower extremity. Patient has new redness to the anterior aspect of left knee in the past 4 to 5 days. Patient had a injury last Wednesday where she had slipped and fallen down slowly landing on the left knee, left hip and left buttock. Patient came into the ER for evaluation on . Patient and daughter not happy with her ER experience, stating they waited in the waiting room for 3 hours, had an x-ray, had a very short visit with the ER doctor and they were discharged. Patient has not followed up with PCP or orthopedic surgery. Patient uses a walker at home. Patient is now complaining of left hip pain left lower back pain. Patient had a x-ray of her left knee last in the ER. No fever or chills. No nausea vomiting, no chest pain or shortness of breath, no other acute complaints. [facility] Medical History Anemia Anemia of chronic disease Anticoagulant long-term use Anxiety and depression Arthritis Atrial fibrillation CAD (coronary artery disease) CPAP (continuous positive airway pressure) dependence Diabetes mellitus DM type 2, goal HbA1c < 7% DVT (deep venous thrombosis) Failure of outpatient treatment Hematoma of right knee region History of stress incontinence Hx of necrotizing fasciitis Hypertension Hypothyroidism Insulin dependent diabetes mellitus Leg swelling Open wound of knee Open wound of right knee with complication PAF (paroxysmal atrial fibrillation) Restless legs Stage 3b chronic kidney disease (CKD) Traumatic hematoma of right knee Ulcer of right knee Wears dentures Home Medications atorvastatin 40 mg tablet 40 mg PO QHS Cholesterol 09/07/14 [History Last Taken 04/06/23] fenofibric acid (choline) 135 mg capsule,delayed release (Trilipix) 135 mg PO DAILY Cholesterol 09/07/14 [History Last Taken 04/06/23] levothyroxine 175 mcg tablet 200 mcg PO DAILY Thyroid 04/12/20 [History Last Taken 04/06/23] bumetanide 0.5 mg tablet 0.5 mg PO DAILY BP 02/17/21 [History Last Taken 04/06/23] insulin glargine U-300 conc 300 unit/mL (1.5 mL) subcutaneous pen (Toujeo SoloStar U-300 Insulin) 25 unit subcut QHS Diabetes 02/17/21 [History Last Taken 04/06/23] insulin lispro 100 unit/mL subcutaneous solution (Humalog U-100 Insulin) 18 unit subcut BREAKFAST Diabetes 02/17/21 [History Last Taken 04/06/23] acetaminophen 500 mg tablet 1,000 mg (2 x 500 mg) PO Q6H PRN PRN Pain Score 1-5 #0 tabs 05/14/21 [Rx Last Taken 04/06/23] insulin lispro 100 unit/mL subcutaneous pen 25 unit subcut LUNCH diabetes 05/30/21 [History Last Taken 04/06/23] amiodarone 200 mg tablet 100 mg PO DAILY hrt 11/12/21 [History Last Taken 04/06/23] lisinopril 10 mg tablet 20 mg PO DAILY bp 04/11/23 [History Last Taken Unknown] ofloxacin 0.3 % eye drops 1 drp ophthalmic (eye) Q6H eye 04/11/23 [History Last Taken Unknown] prednisolone acetate 1 % eye drops,suspension 1 drp ophthalmic (eye) BID eye 04/11/23 [History Last Taken Unknown] sodium chloride 5 % eye drops 1 drp ophthalmic (eye) BID eye 04/11/23 [History Last Taken Unknown] ascorbic acid (vitamin C) 500 mg tablet 500 mg PO BID 30 days #60 tabs 04/21/23 [Rx Last Taken Unknown] ferrous sulfate 325 mg (65 mg iron) tablet (FeroSul) 325 mg PO DAILY@1200 #30 tabs 04/21/23 [Rx Last Taken Unknown] rivaroxaban 10 mg tablet (Xarelto) 10 mg PO DINNER 30 days #30 tabs 04/21/23 [Rx Last Taken Unknown] aspirin 81 mg tablet,delayed release (Adult Aspirin Regimen) 81 mg PO DAILY 05/20/23 [History Last Taken Unknown] clopidogrel 75 mg tablet 75 mg PO DAILY 09/01/23 [History Last Taken Unknown] Allergy/AdvReac Type Severity Reaction Status Date / Time hydralazine HCl Allergy Other Verified 09/01/23 12:20 [From Apresoline] ondansetron [From Zofran] AdvReac Nausea Verified 09/01/23 12:20 Family History Mother Diabetes Heart disease Hypertension Father Diabetes Heart disease Hypertension Surgical History History of cardiac catheterization History of cardiac radiofrequency ablation History of hip replacement History of quadruple bypass History of total left hip replacement Hx of CABG Hx of cholecystectomy Hx of colonoscopy Hx of tubal ligation Social History household members: none housing: house number of children: 3 Smoking Status: Former smoker alcohol intake: never substance use type: does not use ROS ROS ED ROS Narrative REVIEW OF SYSTEMS: Unless otherwise stated in this report the patient's positive and negative responses for review of systems for constitutional, eyes, ENT, cardiovascular, respiratory, gastrointestinal, neurological, , musculoskeletal, and integument systems and related systems to the presenting problem are either stated in the history of present illness or were not pertinent or were negative for the symptoms and/or complaints related to the presenting medical problem. EXAM Physical Exam Narrative Exam Narrative: Vital signs reviewed and patient is not hypoxic. General: The patient appears well and in no apparent distress. Patient is resting comfortably on cart. Not toxic, lethargic, or listless. Skin: Warm, dry, no pallor noted. There is no rash noted. Straw-colored fluid is slowly draining from the area. No palpable hematoma, no signs of infection. Patient does have superficial erythema to the anterior aspect of the left knee, circumferential, extending from above the left knee and below the left knee. The mild erythema around the left knee is different is different than the lower distal third of the left lower extremity that is more red, 4+ pitting edema, and red secondary to venous stasis that is acute on chronic. Noted a open venous ulceration to left superior medial aspect of her left knee that could have been the source of infection for the erythema/cellulitis to the anterior aspect of the left knee. Head: Normocephalic, atraumatic Eye: Normal conjunctiva, no drainage, EOMI. PERRL. Ears, Nose, Mouth, and Throat: oral mucosa is moist. Nares patent. Mouth without vesicles. Cardiovascular: Regular Rate and Rhythm, no murmurs, gallops, or rubs Respiratory: Patient is in no distress, no accessory muscle use, lungs are clear to auscultation, no wheezing, rales or rhonchi Back: non-tender, no CVA tenderness bilaterally to percussion. NO CTLS midline or paraspinal tenderness to palpation. GI: Soft, morbidly obese, tenderness to palpation, no masses appreciated. No rebound, guarding, or rigidity noted. Musculoskeletal: The patient has full range of motion of all extremities and joints with no difficulty except to left lower extremity. Patient has very large lower extremities, equal, bilateral. Patient has mild to moderate pain with flexion extension of left knee, she is able to extend at 180 degrees, she can flex up to approximately 45 to 55 degrees. Patient has mild pain to left hip with internal/external rotation, patient can flex approximately 45 degrees of her left hip. Patient does not have severe or significant amount of pain with flexion extension of left knee that would suggest a septic joint. Patient has no motor, no sensory deficits. Neurological: A&O x4, normal speech, no focal neurological deficits. Psychiatric: Cooperative Const Vital Signs: 09/01/23 12:19 Temperature 97.4 F L Temperature Source Temporal Pulse Rate 66 Respiratory Rate 14 Blood Pressure 174/66 H Blood Pressure Mean 102 Pulse Ox 100 Oxygen Delivery Method Room Air MDM [facility] MDM Narrative Medical decision making narrative: Patient's hemoglobin is noted to be below 7. It is 6.7. Patient has had low hemoglobin levels in the past. Last time patient had a low hemoglobin level was in March when patient had hemarthrosis of the right knee. Patient had a blood transfusion at that time. Patient has other times in the past for her blood levels have been low, she has had transfusions, and they have not been able to find the source of patient's bleeding. Patient is currently taking iron tablets. Patient's had no new falls since last Wednesday. Patient has no elevated white blood cell count, no shift, no bandemia. Patient left hip x-ray shows no acute fracture. I have discussed this case with Dr. Norton in the ER. He is recommending to perform a CT of the left knee to make sure there is no hemarthrosis. We also discussed patient's anemia. We also discussed patient's left leg cellulitis along with acute on chronic venous stasis. [address] of the left lower extremity 1650 I did spoke to the hospitalist again, Dr. Norton. He is agreeing to admission to [facility]. He will place an order for 1 unit of blood to be transfused on the inpatient floor. Patient will continue IV antibiotics. Patient will be reassessed tonight and tomorrow. Patient daughter and patient are aware there is no hemarthrosis noted to the right knee. They agree with admission for 1 unit of blood along with IV antibiotics. Patient will be admitted, further orders coming from the hospitalist. Lab Data Labs: Laboratory Results - last 24 hr 09/01/23 14:30 WBC 6.4 RBC 2.37 L Hgb 6.7 L Hct 23.3 L MCV 98.3 MCH 28.3 MCHC 28.8 L RDW Std Deviation 58.4 H RDW Coeff of Kevyn 16.6 H Plt Count 354 MPV 10.3 Immature Gran % (Auto) 0.800 Neut % (Auto) 83.8 H Lymph % (Auto) 5.9 L [place] % (Auto) 8.0 Eos % (Auto) 0.9 Baso % (Auto) 0.6 Absolute Neuts (auto) 5.4 Absolute Lymphs (auto) 0.38 L Nucleated RBC % 0 Differential Comment COMMENT PT 16.4 H INR 1.3 APTT 38.6 H Sodium 136 Potassium 4.5 Chloride 106 Carbon Dioxide 22.0 Anion Gap 8 BUN 27 H Creatinine 1.50 H Estim Creat Clear Calc 32.97 Est GFR (MDRD) Af Amer 44 L Est GFR (MDRD) Non-Af 36 L BUN/Creatinine Ratio 18.0 Glucose 328 H Lactic Acid 1.6 Calcium 8.6 Total Bilirubin 1.50 H AST 17 ALT 15 Alkaline Phosphatase 71 Total Protein 7.6 Albumin 3.2 Globulin 4.4 H Albumin/Globulin Ratio 0.7 L Radiography X-Ray: Read by ED Physician (Patient's left hip/pelvis x-ray was read by Dr. Scott. No acute fracture, dislocation, or acute abnormality. Arthritic changes noted) Diagnostic Testing: Clinical Impression(s) from Imaging Studies Hip/Pelvis X-Ray 09/01/23 15:00 IMPRESSION: Status post left total hip replacement. No acute amount is seen. Electronically Signed: Ian Buchanan MD at 15:17 EST , Lower Extremity CT 09/01/23 15:19 IMPRESSION: 1. No acute osseous abnormalities. 2. Hyperdense collection in the subcutaneous tissues of the medial/anterior lower leg compatible with a hematoma. There is no active bleeding identified. Electronically Signed: Darwin hCavez MD at 16:31 EST , Discharge Plan Triage Chief Complaint: Lower Extremity Injury ED Provider: Augie Scott Dx/Rx/DC Orders Prescriptions: No Action atorvastatin 40 MG tablet 40 mg PO QHS Patient Comments: CHOLESTEROL LOWERING fenofibric acid (choline) [Trilipix] 135 MG capsule,delayed release(DR/EC) 135 mg PO DAILY Patient Comments: cholesterol levothyroxine 175 MCG tablet 200 mcg PO DAILY bumetanide 0.5 mg Tablet 0.5 mg PO DAILY insulin lispro [Humalog U-100 Insulin] 100 unit/mL Solution 18 unit SUBCUT BREAKFAST Toujeo SoloStar U-300 Insulin 300 unit/mL (1.5 mL) Insulin Pen 25 unit SUBCUT QHS acetaminophen 500 mg Tablet 1,000 mg PO Q6H PRN PRN (Reason: Pain Score 1-5) Qty: 0 0RF insulin lispro 100 unit/mL Insulin Pen 25 unit SUBCUT LUNCH amiodarone 200 mg tablet 100 mg PO DAILY Patient Comments: TAKE 1 TABLET DAILY lisinopril 10 mg tablet 20 mg PO DAILY Patient Comments: TAKE 1 TABLET DAILY prednisolone acetate 1 % drops,suspension 1 drp ophthalmic (eye) BID Patient Comments: Instill 1 drop in right eye(s) twice daily sodium chloride 5 % drops 1 drp ophthalmic (eye) BID Patient Comments: instill 1 (ONE) DROP IN THE RIGHT EYE TWICE DAILY ofloxacin 0.3 % drops 1 drp ophthalmic (eye) Q6H Patient Comments: APPLY 1 (ONE) DROP IN OPERATIVE EYE FOUR TIMES DAILY, START AFTER SURGERY ferrous sulfate [FeroSul] 325 mg (65 mg iron) Tablet 325 mg PO DAILY@1200 Qty: 30 2RF ascorbic acid (vitamin C) 500 mg tablet 500 mg PO BID 30 Days Qty: 60 2RF Xarelto 10 mg Tablet 10 mg PO DINNER 30 Days Qty: 30 0RF Rx Instructions: Discontinue if platelet count drops less than 50,000 or hemoglobin less than 7.0 g% aspirin [Adult Aspirin Regimen] 81 mg tablet,delayed release (DR/EC) 81 mg PO DAILY clopidogrel 75 mg tablet 75 mg PO DAILY Patient Comments: TAKE 1 TABLET BY MOUTH EVERY DAY Primary Care Provider: Maggi Chicas Referrals: Maggi Chicas DO [Primary Care Provider] -
--- NOTE | 2023-09-01 17:40 | ED.RN ---
PER DR NORTON & DR RHYS GONZALEZ TO HOLD ON VANCOMYCIN D/T NO WBC ELEVATION OR LACTIC.
[2023-09-01 17:55] VITALS: BP 154/57; PULSE 70; RESP 16; O2SAT 97
[2023-09-01 17:56] VITALS: BP 154/57; PULSE 70; RESP 16; O2SAT 97
--- NOTE | 2023-09-01 18:50 | PCM.HP.STD ---
HPI - General General Date of Admission: 09/01/23 HPI Narrative MADAN CARRION, is a 72 F who presents to the hospital with left hip pain after a fall. She fell last week and had knee pain that was x-rayed in the ER and she was discharged home and there is no fracture present. She returns today secondary to redness around her knee as well as increased pain in her left hip. The redness does appear to be consistent with bruising and edema CT of her left knee demonstrates a hematoma with no gas bubbles and no signs of new contrast indicate continued bleeding or infection. Her white count is normal and she is afebrile. She does have some left lower ankle redness which the family says is intermittent secondary to her chronic venous stasis and lower extremity edema. She was also found to be anemic to 6.7 however family states that she is chronically anemic and receives intermittent transfusions and that her primary care physician is uncertain as to why she is anemic, she does take an iron supplement. [facility] Medical History Anemia Anemia of chronic disease Anticoagulant long-term use Anxiety and depression Arthritis Atrial fibrillation CAD (coronary artery disease) CPAP (continuous positive airway pressure) dependence Diabetes mellitus DM type 2, goal HbA1c < 7% DVT (deep venous thrombosis) Failure of outpatient treatment Hematoma of right knee region History of stress incontinence Hx of necrotizing fasciitis Hypertension Hypothyroidism Insulin dependent diabetes mellitus Leg swelling Open wound of knee Open wound of right knee with complication PAF (paroxysmal atrial fibrillation) Restless legs Stage 3b chronic kidney disease (CKD) Traumatic hematoma of right knee Ulcer of right knee Wears dentures Home Medications atorvastatin 40 mg tablet 40 mg PO QHS Cholesterol 09/07/14 [History Last Taken 04/06/23] fenofibric acid (choline) 135 mg capsule,delayed release (Trilipix) 135 mg PO DAILY Cholesterol 09/07/14 [History Last Taken 04/06/23] levothyroxine 175 mcg tablet 200 mcg PO DAILY Thyroid 04/12/20 [History Last Taken 04/06/23] bumetanide 0.5 mg tablet 0.5 mg PO DAILY BP 02/17/21 [History Last Taken 04/06/23] insulin glargine U-300 conc 300 unit/mL (1.5 mL) subcutaneous pen (Toujeo SoloStar U-300 Insulin) 25 unit subcut QHS Diabetes 02/17/21 [History Last Taken 04/06/23] insulin lispro 100 unit/mL subcutaneous solution (Humalog U-100 Insulin) 18 unit subcut BREAKFAST Diabetes 02/17/21 [History Last Taken 04/06/23] acetaminophen 500 mg tablet 1,000 mg (2 x 500 mg) PO Q6H PRN PRN Pain Score 1-5 #0 tabs 05/14/21 [Rx Last Taken 04/06/23] insulin lispro 100 unit/mL subcutaneous pen 25 unit subcut LUNCH diabetes 05/30/21 [History Last Taken 04/06/23] amiodarone 200 mg tablet 100 mg PO DAILY hrt 11/12/21 [History Last Taken 04/06/23] lisinopril 10 mg tablet 20 mg PO DAILY bp 04/11/23 [History Last Taken Unknown] ofloxacin 0.3 % eye drops 1 drp ophthalmic (eye) Q6H eye 04/11/23 [History Last Taken Unknown] prednisolone acetate 1 % eye drops,suspension 1 drp ophthalmic (eye) BID eye 04/11/23 [History Last Taken Unknown] sodium chloride 5 % eye drops 1 drp ophthalmic (eye) BID eye 04/11/23 [History Last Taken Unknown] ascorbic acid (vitamin C) 500 mg tablet 500 mg PO BID 30 days #60 tabs 04/21/23 [Rx Last Taken Unknown] ferrous sulfate 325 mg (65 mg iron) tablet (FeroSul) 325 mg PO DAILY@1200 #30 tabs 04/21/23 [Rx Last Taken Unknown] rivaroxaban 10 mg tablet (Xarelto) 10 mg PO DINNER 30 days #30 tabs 04/21/23 [Rx Last Taken Unknown] aspirin 81 mg tablet,delayed release (Adult Aspirin Regimen) 81 mg PO DAILY 05/20/23 [History Last Taken Unknown] clopidogrel 75 mg tablet 75 mg PO DAILY 09/01/23 [History Last Taken Unknown] Allergy/AdvReac Type Severity Reaction Status Date / Time hydralazine HCl Allergy Other Verified 09/01/23 12:20 [From Apresoline] ondansetron [From Zofran] AdvReac Nausea Verified 09/01/23 12:20 Family History Mother Diabetes Heart disease Hypertension Father Diabetes Heart disease Hypertension Surgical History History of cardiac catheterization History of cardiac radiofrequency ablation History of hip replacement History of quadruple bypass History of total left hip replacement Hx of CABG Hx of cholecystectomy Hx of colonoscopy Hx of tubal ligation Social History household members: none housing: house number of children: 3 Smoking Status: Former smoker alcohol intake: never substance use type: does not use ROS Constitutional Constitutional: Denies chills, fatigue, fever(s) or malaise Eyes Eyes: Denies blurry vision ENT HEENT: Denies headache(s) or nasal discharge Cardiovascular Cardiovascular: Denies chest pain, dyspnea on exertion or syncope Respiratory/Chest Respiratory/Chest: Denies cough, shortness of breath at rest or shortness of breath with exertion Gastrointestinal Gastrointestinal: Denies constipation, diarrhea, nausea or vomiting Genitourinary Genitourinary: Denies dysuria Musculoskeletal Musculoskeletal: Reports joint pain Integumentary Integumentary: Reports rash and wounds Neurologic Neurologic: Denies focal weakness, numbness or tremor(s) Psychiatric Psychiatric: Denies anxiety or depression Vital Signs Vital Signs Vital Signs: 09/01/23 12:19 09/01/23 17:55 09/01/23 17:56 Temperature 97.4 F L Temperature Source Temporal Pulse Rate 66 70 70 Respiratory Rate 14 16 16 Blood Pressure 174/66 H 154/57 H 154/57 H Blood Pressure Mean 102 89 89 Pulse Ox 100 97 97 Oxygen Delivery Method Room Air Weight Weight: 297 lb 2.93 oz Body Mass Index (BMI) 46.5 Physical Exam Narrative General: Alert, Oriented x3, Cooperative, No apparent distress, morbidly obese HEENT: Atraumatic, PERRLA, EOMI, Normocephalic Oral: Moist Mucosa Neck: Supple, No JVD Lungs: Diminished, Normal air movement, No rhonchi, No wheeze, No rales Cardiovascular: Regular rate, Regular Rhythm, Normal S1, Normal S2, No murmurs Abdomen: Soft, Non Tender, Non-Distended, No Hepato-splenomegaly Extremities: Edema, Capillary Refill Less than 3 Seconds Skin: Left knee skin tear surrounded with ecchymosis given body habitus difficult to ascertain swelling, chronic right lower extremity wounds. Left ankle erythema that is chronic. Chronic venous stasis Musculoskeletal: No Tenderness to Palpation of Joints or Extremities Neurological: Moves all extremities, Sensory exam intact to light touch and pain Psych/Mental Status: Normal Affect, Appropriate Results Lab / Micro Data 09/01/23 14:30 09/01/23 14:30 Labs: Laboratory Results - last 24 hr 09/01/23 14:30: WBC 6.4, RBC 2.37 L, Hgb 6.7 L, Hct 23.3 L, MCV 98.3, MCH 28.3, MCHC 28.8 L, RDW Std Deviation 58.4 H, RDW Coeff of Kevyn 16.6 H, Plt Count 354, MPV 10.3, Immature Gran % (Auto) 0.800, Neut % (Auto) 83.8 H, Lymph % (Auto) 5.9 L, [place] % (Auto) 8.0, Eos % (Auto) 0.9, Baso % (Auto) 0.6, Absolute Neuts (auto) 5.4, Absolute Lymphs (auto) 0.38 L, Nucleated RBC % 0, Differential Comment COMMENT, PT 16.4 H, INR 1.3, APTT 38.6 H, Sodium 136, Potassium 4.5, Chloride 106, Carbon Dioxide 22.0, Anion Gap 8, BUN 27 H, Creatinine 1.50 H, Estim Creat Clear Calc 32.97, Est GFR (MDRD) Af Amer 44 L, Est GFR (MDRD) Non-Af 36 L, BUN/Creatinine Ratio 18.0, Glucose 328 H, Lactic Acid 1.6, Calcium 8.6, Total Bilirubin 1.50 H, AST 17, ALT 15, Alkaline Phosphatase 71, Total Protein 7.6, Albumin 3.2, Globulin 4.4 H, Albumin/Globulin Ratio 0.7 L Imagaing Radiology Impression Hip/Pelvis X-Ray 09/01/23 15:00 IMPRESSION: Status post left total hip replacement. No acute amount is seen. Electronically Signed: Ian Buchanan MD at 15:17 EST , Lower Extremity CT 09/01/23 15:19 IMPRESSION: 1. No acute osseous abnormalities. 2. Hyperdense collection in the subcutaneous tissues of the medial/anterior lower leg compatible with a hematoma. There is no active bleeding identified. Electronically Signed: Darwin Chavez MD at 16:31 EST Reading Location ID and State: [facility] / [place] Tel , Service support , Assessment & Plan Assessment/Plan (1) Contusion of knee, left: (2) Cellulitis of left leg: PLAN: Plan 1. Left knee contusion with unclear cellulitis ? She is afebrile without a leukocytosis ? Given the hematoma and her body habitus with her diagnosis of diabetes would be prudent to treat with p.o. Keflex 3 times daily ? PT/OT, she is hesitant to be discharged to SNF 2. HTN/HLD/CAD status post CABG/A-fib/pulmonary hypertension ? Blood pressures are stable, can resume her home blood pressure medications including her amiodarone ? We will hold her aspirin and Plavix as well as her Xarelto given the knee hematoma can restart tomorrow if hemoglobin is stable after her transfusion for her chronic anemia ? We will monitor and make adjustments as necessary ? Continue with Lipitor ? Had an echo in 06/02/2021 with an EF of 65% and an RVSP of 61 mmHg 3. Anemia of chronic disease with iron deficiency ? Continue with her iron supplement and we will give her 1 unit PRBCs tonight ? She denies any signs of dark stools or GI bleeding 4. DM2 ? Continue with her home insulin ? Accu-Cheks ACHS ? Sliding scale insulin ? We will monitor make adjustments as necessary 5. Hypothyroidism ? Stable ? Continue with Synthroid DVT: Ambulation, can restart home Xarelto tomorrow if hemoglobin stable 75 minutes was spent on direct patient care, including documentation as well as chart review and collaboration with colleagues Charges/Coding Visit Charges Inpatient E&M: 31333 Init Hosp L3
[2023-09-01 20:07] VITALS: BMI 45.4
[2023-09-01 20:22] VITALS: BP 171/66; PULSE 63; RESP 18; TEMP 36.3; O2SAT 100
[2023-09-01] MEDS: Insulin Glargine-YFGN 100 UNIT/ML Pen 25 UNIT SC (22:01)
[2023-09-01] MEDS: Insulin Lispro 100 UNIT/ML INSULN.PEN SC (22:01)
[2023-09-01] MEDS: Morphine 2 MG/ML Syringe IV (22:03)
[2023-09-01] MEDS: 0.9% Saline Lock 10 ML Syringe IV (22:03)
[2023-09-01] MEDS: Atorvastatin Calcium 40 MG Tablet PO (22:05)
[2023-09-01] MEDS: Ascorbic Acid 500 MG Tablet PO (22:05)
[2023-09-01] MEDS: Cephalexin 500 MG Capsule PO (22:05)
[2023-09-01 22:25] LABS: Bedside Glucose 321 mg/dL (74-106)
[2023-09-01 23:43] VITALS: BP 138/37; PULSE 60; RESP 18; TEMP 36.9; O2SAT 97
[2023-09-01 23:58] VITALS: BP 122/44; PULSE 57; RESP 18; TEMP 36.9; O2SAT 97
[2023-09-02] VITALS (11 sets, daily range): BP systolic 111–147; BP diastolic 46–75; PULSE 56–68; RESP 16–18; TEMP 36.1–36.9; O2SAT 94–100
[2023-09-02] MEDS: Levothyroxine 100 MCG Tablet 200 MCG PO (05:40)
[2023-09-02] MEDS: Cephalexin 500 MG Capsule PO (05:40)
[2023-09-02 05:54] LABS: Absolute Lymphocyte Count 0.46 X10^3/uL (0.83-4.51); Absolute Neutrophil Count 3.8 X10^3/uL (2.0-7.7); Basophil# 0.04 X10^3/uL; Basophil% 0.8 % (0-1); Eosinophil# 0.11 X10^3/uL; Eosinophils% 2.2 % (0-5); Hematocrit 22.5 % (37-47); Hemoglobin 6.5 g/dL (12.0-15.0); Lymphocyte # 0.46 X10^3/ul (0.83-4.51); Lymphocyte % 9.1 % (19-41); Mean Corp Hgb Conc 28.9 g/dL (32-36); Mean Corpuscular Hgb 27.9 pg (27.0-32.0); Mean Corpuscular Volume 96.6 fL (81-99); Mean Platelet Vol. 10.4 fl (6.2-12.0); Monocyte# 0.59 X10^3/uL; Monocyte% 11.7 % (0-10); NRBC Flagged by Analyzer 0 % (0-5); Neutrophil # 3.82 X10^3/uL (2.7-7.7); Neutrophil % 75.4 % (47-70); POSITIVE DIFFERENTIAL YES; Platelet Count 301 K/mm3 (150-450); RBC Distribution Width CV 16.9 % (11.6-14.6); RBC Distribution Width SD 59.5 fl (35.1-43.9); Red Blood Count 2.33 M/mm3 (4.2-5.4); White Blood Count 5.1 K/mm3 (4.4-11.0)
[2023-09-02 06:09] LABS: Differential Indicated SCAN CRITERIA MET
[2023-09-02 06:28] LABS: Anion Gap 4 (5-15); BUN 24 mg/dL (7-18); BUN/Creat Ratio 18.5 RATIO (10-20); Calcium,Total 8.6 mg/dL (8.5-10.1); Chloride 111 mmol/L (98-107); EST Glomerular Filtration Rate 43 mL/min (>60); Est Glom Filt Rate - Afr Amer 52 mL/min (>60); Estimated Creatinine Clearance 38.04 ml/min; Glucose 243 mg/dL (74-106); Potassium 4.4 mmol/L (3.5-5.1); Sodium Level 138 mmol/L (136-145)
[2023-09-02 07:06] LABS: Differential Comment SCANNED; Hypochromasia 2+
[2023-09-02] MEDS: Insulin Lispro 100 UNIT/ML INSULN.PEN SC ×3 (07:49→21:47)
[2023-09-02] MEDS: Insulin Lispro 100 UNIT/ML INSULN.PEN 18 UNIT SC (07:50)
[2023-09-02] MEDS: Fenofibrate 145 MG Tablet PO (07:50)
--- NOTE | 2023-09-02 07:58 | PCM.PN.HOSP ---
Reason for Visit Reason for Visit: Diagnoses Cellulitis of left lower limb (09/01/23) Contusion of left knee, initial encounter (09/01/23) Objective Data Objective Data Vital Signs: Vital Signs Temp Pulse Resp BP Pulse Ox O2 Del Method 97.6 F L 60 18 111/56 L 97 Room Air 09/02/23 07:57 09/02/23 07:57 09/02/23 07:57 09/02/23 07:57 09/02/23 07:57 09/02/23 07:57 Oxygen Delivery Method Room Air Weight: 290 lb 5.581 oz Body Mass Index (BMI) 45.4 Intake & Output: Intake and Output for Last 24 Hours 08/31/23 09/01/23 09/02/23 23:59 23:59 23:59 Intake Total 1050 / 1470 421 / 421 Output Total 600 / 600 Balance 1050 / 1270 -179 / -179 Lab / Micro Data 09/02/23 04:29 09/02/23 04:29 Labs: Laboratory Results - last 24 hr 09/01/23 14:30: WBC 6.4, RBC 2.37 L, Hgb 6.7 L, Hct 23.3 L, MCV 98.3, MCH 28.3, MCHC 28.8 L, RDW Std Deviation 58.4 H, RDW Coeff of Kevyn 16.6 H, Plt Count 354, MPV 10.3, Immature Gran % (Auto) 0.800, Neut % (Auto) 83.8 H, Lymph % (Auto) 5.9 L, [place] % (Auto) 8.0, Eos % (Auto) 0.9, Baso % (Auto) 0.6, Absolute Neuts (auto) 5.4, Absolute Lymphs (auto) 0.38 L, Nucleated RBC % 0, Differential Comment COMMENT, PT 16.4 H, INR 1.3, APTT 38.6 H, Sodium 136, Potassium 4.5, Chloride 106, Carbon Dioxide 22.0, Anion Gap 8, BUN 27 H, Creatinine 1.50 H, Estim Creat Clear Calc 32.97, Est GFR (MDRD) Af Amer 44 L, Est GFR (MDRD) Non-Af 36 L, BUN/Creatinine Ratio 18.0, Glucose 328 H, Lactic Acid 1.6, Calcium 8.6, Total Bilirubin 1.50 H, AST 17, ALT 15, Alkaline Phosphatase 71, Total Protein 7.6, Albumin 3.2, Globulin 4.4 H, Albumin/Globulin Ratio 0.7 L 09/01/23 21:17: Blood Type A POSITIVE, Antibody Screen POSITIVE, Antibody Identification ANTI-E, Crossmatch See Detail 09/01/23 21:59: POC Glucose 321 H 09/02/23 04:29: WBC 5.1, RBC 2.33 L, Hgb 6.5 L, Hct 22.5 L, MCV 96.6, MCH 27.9, MCHC 28.9 L, RDW Std Deviation 59.5 H, RDW Coeff of Kevyn 16.9 H, Plt Count 301, MPV 10.4, Immature Gran % (Auto) 0.800, Neut % (Auto) 75.4 H, Lymph % (Auto) 9.1 L, [place] % (Auto) 11.7 H, Eos % (Auto) 2.2, Baso % (Auto) 0.8, Absolute Neuts (auto) 3.8, Absolute Lymphs (auto) 0.46 L, Nucleated RBC % 0, Differential Comment SCANNED, Hypochromasia 2+, Sodium 138, Potassium 4.4, Chloride 111 H, Carbon Dioxide 23.0, Anion Gap 4 L, BUN 24 H, Creatinine 1.30 H, Estim Creat Clear Calc 38.04, Est GFR (MDRD) Af Amer 52 L, Est GFR (MDRD) Non-Af 43 L, BUN/Creatinine Ratio 18.5, Glucose 243 H, Calcium 8.6 Radiography Diagnostic Testing: Radiology Impression Hip/Pelvis X-Ray 09/01/23 15:00 IMPRESSION: Status post left total hip replacement. No acute amount is seen. Electronically Signed: Ian Buchanan MD at 15:17 EST , Lower Extremity CT 09/01/23 15:19 IMPRESSION: 1. No acute osseous abnormalities. 2. Hyperdense collection in the subcutaneous tissues of the medial/anterior lower leg compatible with a hematoma. There is no active bleeding identified. Electronically Signed: Darwin Chavez MD at 16:31 EST , Physical Exam Narrative Seen and examined. Patient fell down on her left knee several days ago and after 2 days she noticed fluid blister and it burst open to ulcer. No fever. Is painful to extend knee. Left hip pain also. Physical exam: General: Alert, Oriented x3, Cooperative, morbid obesity BMI 45.5 kg/m? HEENT: Atraumatic, PERRLA, EOMI, Normocephalic Oral: Oral mucosa moist. No Gingival or Mucosal Lesions/ Ulcerations Neck: Supple, No JVD, Negative Carotid Bruits Lungs: Air entry diminished in bilateral lung bases. No crepitation/rhonchi Cardiovascular: Regular rate, Regular Rhythm, Normal S1, Normal S2, No murmurs Abdomen: Bowel Sounds Present, Soft, Non Tender, Non-Distended : No renal angle tenderness. No suprapubic tenderness. Extremities: No edema, Capillary Refill Less than 3 Seconds Skin: Superficial ulcer around right lower bone with superficial slough looks infected. Hematoma around left knee. Musculoskeletal: Tenderness present around the left knee with hematoma. Left side of pelvis tender at ischium bone and lateral hip. Status post left hip replacement. ROM restricted. Neurological: Cranial nerves II-XII grossly intact, DTR 2+/4. No acute focal neurological deficit. Psych/Mental Status: Flat affect Assessment & Plan Assessment/Plan (1) Contusion of knee, left: (2) Cellulitis of left leg: PLAN: Plan 72-year-old female was admitted for chief complaint of left knee pain hip pain and lower back pain with contusion and mild redness over left knee for 4 to 5 days. Patient also has venous ulcer which is draining yellowish fluid over left medial knee with history of chronic venous stasis. She slipped and fell down over her left knee, slowly landed over left hip and left buttock. Had an x-ray and was discharged from ED. No fever or chills. 1. Fall and subsequent left knee hematoma with surrounding inflammation and superficial ulceration with infection: Patient is being admitted on monitored bed. No fever. Patient started on IV antibiotic ceftriaxone 2 g IV daily. Orthopedic surgeon consulted for opinion PT and OT.Left knee immobilizer. 09/02: MRSA PCR from wound is negative. Discussed with the Dr. Gallegos. He agreed for taking her to the OR tomorrow with giving 48 hours of antiplatelet and anticoagulant agent. In the meantime we will try to optimize her hemoglobin. 2. Acute blood loss anemia probably due to hematoma: Hemoglobin dropped to 6.5 from her baseline around 8. She had 1 unit of transfusion but is still hemoglobin 6.7 therefore 1 more unit ordered. No signs and symptoms of GI bleed. Iron infusion also ordered. 3. HTN/HLD/CAD status post CABG/chronic A-fib/pulmonary hypertension: Will continue to hold aspirin Plavix and Xarelto due to hematoma and severe anemia. Blood pressure systolic in 120s therefore continue to hold antihypertensive medications. Continue Lipitor. ? Had an echo in 06/02/2021 with an EF of 65% and an RVSP of 61 mmHg 4. DM2 ? Continue with her home insulin ? Accu-Cheks ACHS ? Sliding scale insulin 08/27: Glucose is high 243 but most recent glucose check 71. I had just insulin dose. 5. Hypothyroidism ? Continue with Synthroid DVT: Ambulation, continue to hold Xarelto. Microbiology Past 72 Hours 09/02/23 11:40 Wound - Leg, Left Gram Stain - Final Laboratory Results 09/01/23 21:17: Blood Type A POSITIVE, Antibody Screen POSITIVE, Antibody Identification ANTI-E, Crossmatch See Detail 09/01/23 21:17: Crossmatch See Detail 09/01/23 21:59: POC Glucose 321 H 09/02/23 04:29: WBC 5.1, RBC 2.33 L, Hgb 6.5 L, Hct 22.5 L, MCV 96.6, MCH 27.9, MCHC 28.9 L, RDW Std Deviation 59.5 H, RDW Coeff of Kevyn 16.9 H, Plt Count 301, MPV 10.4, Immature Gran % (Auto) 0.800, Neut % (Auto) 75.4 H, Lymph % (Auto) 9.1 L, [place] % (Auto) 11.7 H, Eos % (Auto) 2.2, Baso % (Auto) 0.8, Absolute Neuts (auto) 3.8, Absolute Lymphs (auto) 0.46 L, Nucleated RBC % 0, Differential Comment SCANNED, Hypochromasia 2+, Sodium 138, Potassium 4.4, Chloride 111 H, Carbon Dioxide 23.0, Anion Gap 4 L, BUN 24 H, Creatinine 1.30 H, Estim Creat Clear Calc 38.04, Est GFR (MDRD) Af Amer 52 L, Est GFR (MDRD) Non-Af 43 L, BUN/Creatinine Ratio 18.5, Glucose 243 H, Calcium 8.6, Phosphorus 2.2 L, Total Creatine Kinase 40 09/02/23 07:49: POC Glucose 192 H 09/02/23 11:28: POC Glucose 71 L 09/02/23 11:40: S.aureus Protein A PCR POSITIVE H, MRSA (PCR) Negative Charges/Coding Visit Charges Inpatient E&M: 66937 Subs Hosp L2
[2023-09-02 08:25] LABS: Bedside Glucose 192 mg/dL (74-106)
[2023-09-02 09:22] LABS: CPK Total, Creatine Kinase 40 U/L (26-192); Phosphorus 2.2 mg/dL (2.5-4.9)
[2023-09-02] MEDS: Amiodarone 200 MG Tablet 100 MG PO (10:37)
[2023-09-02] MEDS: Bumetanide 0.5 MG Tablet PO (10:37)
[2023-09-02] MEDS: Lisinopril 20 MG Tablet PO (10:38)
[2023-09-02] MEDS: Ascorbic Acid 500 MG Tablet PO ×2 (10:38→21:42)
[2023-09-02 11:48] LABS: Bedside Glucose 71 mg/dL (74-106)
[2023-09-02] MEDS: Acetaminophen 325 MG Tablet 650 MG PO (12:01)
[2023-09-02] MEDS: 0.9% Saline Lock 10 ML Syringe IV (12:02)
[2023-09-02] MEDS: Ceftriaxone 2 GM in 0.9% Normal Saline (50mL MB+) 50 ML IV (12:02)
[2023-09-02 13:17] LABS: M R Staph aureus DNA By PCR Negative (Negative); Probe Check PASS; Specimen Processing Control PASS; Staph aureus DNA By PCR POSITIVE (Negative)
--- NOTE | 2023-09-02 13:19 | WOUNDNOTE ---
wound photo: left knee
[2023-09-02] MEDS: Sodium Ferric Gluconat/Sucrose 250 MG in 0.9% Normal Saline (250mL Bag) 250 ML 135 MG IV (20:25)
[2023-09-02 20:46] LABS: Hematocrit 26.7 % (37-47); Hemoglobin 8.1 g/dL (12.0-15.0)
[2023-09-02] MEDS: Atorvastatin Calcium 40 MG Tablet PO (21:42)
[2023-09-02] MEDS: Insulin Glargine-YFGN 100 UNIT/ML Pen 25 UNIT SC (21:46)
[2023-09-02] MEDS: oxyCODONE 5 MG Tablet PO (21:48)
[2023-09-02 22:11] LABS: Bedside Glucose 303 mg/dL (74-106)
[2023-09-03] VITALS (11 sets, daily range): BP systolic 123–157; BP diastolic 44–64; PULSE 56–64; RESP 16–18; TEMP 36.5–36.9; O2SAT 97–100; BMI 45.4; BMI 30.1
[2023-09-03 06:31] LABS: Absolute Lymphocyte Count 0.58 X10^3/uL (0.83-4.51); Absolute Neutrophil Count 3.8 X10^3/uL (2.0-7.7); Basophil# 0.06 X10^3/uL; Basophil% 1.1 % (0-1); Eosinophil# 0.29 X10^3/uL; Eosinophils% 5.5 % (0-5); Hematocrit 26.7 % (37-47); Hemoglobin 7.9 g/dL (12.0-15.0); Lymphocyte # 0.58 X10^3/ul (0.83-4.51); Mean Corp Hgb Conc 29.6 g/dL (32-36); Mean Corpuscular Hgb 27.9 pg (27.0-32.0); Mean Corpuscular Volume 94.3 fL (81-99); Mean Platelet Vol. 10.3 fl (6.2-12.0); Monocyte# 0.51 X10^3/uL; Monocyte% 9.7 % (0-10); NRBC Flagged by Analyzer 0 % (0-5); Neutrophil # 3.77 X10^3/uL (2.7-7.7); Neutrophil % 71.9 % (47-70); POSITIVE DIFFERENTIAL YES; Platelet Count 304 K/mm3 (150-450); RBC Distribution Width CV 16.7 % (11.6-14.6); RBC Distribution Width SD 57.1 fl (35.1-43.9); Red Blood Count 2.83 M/mm3 (4.2-5.4); White Blood Count 5.3 K/mm3 (4.4-11.0)
[2023-09-03 06:37] LABS: Bedside Glucose 169 mg/dL (74-106)
[2023-09-03 06:42] LABS: International Normalized Ratio 1.2; Prothrombin Time (Protime)PT. 15.1 SECONDS (11.7-14.9)
[2023-09-03 06:43] LABS: Partial Thromboplast Time 40.6 Seconds (24.1-36.2)
[2023-09-03 06:59] LABS: Anion Gap 7 (5-15); BUN 30 mg/dL (7-18); BUN/Creat Ratio 23.4 RATIO (10-20); Calcium,Total 8.3 mg/dL (8.5-10.1); Chloride 108 mmol/L (98-107); Creatinine, Serum 1.28 mg/dL (0.55-1.02); EST Glomerular Filtration Rate 44 mL/min (>60); Est Glom Filt Rate - Afr Amer 53 mL/min (>60); Estimated Creatinine Clearance 38.63 ml/min; Glucose 163 mg/dL (74-106); Potassium 4.1 mmol/L (3.5-5.1); Sodium Level 137 mmol/L (136-145)
--- NOTE | 2023-09-03 07:05 | CON.PCM_ITS ---
Assessment & Plan Assessment/Plan (1) Cellulitis of left leg: (2) Hematoma of left lower leg: PLAN: Plan 12 x 13.3 cm hematoma evaluated on CT that has developed fracture blisters and superficial skin necrosis possible early infection superficial. Discussed operative versus nonoperative intervention, patient wishes to proceed with open evacuation of hematoma possible wound VAC application and debridement of necrotic tissue, she will need wound care most likely postoperatively. She is on ceftriaxone every 24 hours. Consent signed placed in the chart risk of continued bleeding continued wound complications infection nerve artery tissue damage, HPI Consult Data Date of Consult: 09/03/23 HPI Narrative HPI Narrative: MADAN CARRION, is a 72 F who is on chronic Xarelto Plavix and aspirin who had a fall she believes August 24 while she was attempting to sit on the toilet she fell forward injuring her left knee leg she states there is no open wound ini tially however bruising developed, she subsequently developed a fracture blister which turned into a necrotic tissue and has had some weeping discharge. Patient is known to me as she has had a previous large right knee hematoma this past March that required wound VAC and wound care. She has been off her Xarelto aspirin and Plavix for over 48 hours. [facility] Medical History (Updated 09/03/23 @ 07:[address] Tyrese Gallegos, DO) Anemia Anemia of chronic disease Anticoagulant long-term use Anxiety and depression Arthritis Atrial fibrillation CAD (coronary artery disease) CPAP (continuous positive airway pressure) dependence Diabetes mellitus DM type 2, goal HbA1c < 7% DVT (deep venous thrombosis) Failure of outpatient treatment Hematoma of right knee region History of stress incontinence Hx of necrotizing fasciitis Hypertension Hypothyroidism Insulin dependent diabetes mellitus Leg swelling Open wound of knee Open wound of right knee with complication PAF (paroxysmal atrial fibrillation) Restless legs Stage 3b chronic kidney disease (CKD) Traumatic hematoma of right knee Ulcer of right knee Wears dentures Home Medications atorvastatin 40 mg tablet 40 mg PO QHS Cholesterol 09/07/14 [History Last Taken 04/06/23] fenofibric acid (choline) 135 mg capsule,delayed release (Trilipix) 135 mg PO DAILY Cholesterol 09/07/14 [History Last Taken 04/06/23] levothyroxine 175 mcg tablet 200 mcg PO DAILY Thyroid 04/12/20 [History Last Taken 04/06/23] bumetanide 0.5 mg tablet 0.5 mg PO DAILY BP 05/24/21 [History Last Taken 04/06/23] insulin glargine U-300 conc 300 unit/mL (1.5 mL) subcutaneous pen (Toujeo SoloStar U-300 Insulin) 25 unit subcut QHS Diabetes 02/17/21 [History Last Taken 04/06/23] insulin lispro 100 unit/mL subcutaneous solution (Humalog U-100 Insulin) 18 unit subcut BREAKFAST Diabetes 02/17/21 [History Last Taken 04/06/23] acetaminophen 500 mg tablet 1,000 mg (2 x 500 mg) PO Q6H PRN PRN Pain Score 1-5 #0 tabs 05/14/21 [Rx Last Taken 04/06/23] insulin lispro 100 unit/mL subcutaneous pen 25 unit subcut LUNCH diabetes 05/30/21 [History Last Taken 04/06/23] amiodarone 200 mg tablet 100 mg PO DAILY hrt 11/12/21 [History Last Taken 04/06/23] lisinopril 10 mg tablet 20 mg PO DAILY bp 04/11/23 [History Last Taken Unknown] ofloxacin 0.3 % eye drops 1 drp ophthalmic (eye) Q6H eye 04/11/23 [History Last Taken Unknown] prednisolone acetate 1 % eye drops,suspension 1 drp ophthalmic (eye) BID eye 04/11/23 [History Last Taken Unknown] sodium chloride 5 % eye drops 1 drp ophthalmic (eye) BID eye 04/11/23 [History Last Taken Unknown] ascorbic acid (vitamin C) 500 mg tablet 500 mg PO BID 30 days #60 tabs 04/21/23 [Rx Last Taken Unknown] ferrous sulfate 325 mg (65 mg iron) tablet (FeroSul) 325 mg PO DAILY@1200 #30 tabs 04/21/23 [Rx Last Taken Unknown] rivaroxaban 10 mg tablet (Xarelto) 10 mg PO DINNER 30 days #30 tabs 04/21/23 [Rx Last Taken Unknown] aspirin 81 mg tablet,delayed release (Adult Aspirin Regimen) 81 mg PO DAILY 05/20/23 [History Last Taken Unknown] clopidogrel 75 mg tablet 75 mg PO DAILY 09/01/23 [History Last Taken Unknown] Allergy/AdvReac Type Severity Reaction Status Date / Time hydralazine HCl Allergy Other Verified 09/01/23 20:14 [From Apresoline] ondansetron [From Zofran] AdvReac Nausea Verified 09/01/23 20:14 Family History Mother Diabetes Heart disease Hypertension Father Diabetes Heart disease Hypertension Surgical History (Updated 09/01/23 @ 20:17 by Tara Zhang) History of cardiac catheterization History of cardiac radiofrequency ablation History of hip replacement History of quadruple bypass History of total left hip replacement Hx of CABG Hx of cholecystectomy Hx of colonoscopy Hx of tubal ligation Stented coronary artery Social History household members: none housing: house number of children: 3 Smoking Status: Former smoker alcohol intake: never substance use type: does not use Physical Exam Const alert and no apparent distress Constitutional Narrative: She is slightly confused cannot recall time very well General Appearance: cooperative and comfortable Extremity Extremity Narrative: Chronic bilateral lower extremity venous stasis dermatitis she does have chronic neuropathy in her feet she is morbidly obese. There is a large hematoma anterior medial just below the knee there is no joint effusion in the joint proper there is an approximate not measured wound on the anterior knee 8 x 5 cm with necrotic tissue there is granulation tissue at the upper end of this with cloudy weeping fluid , underlying hematoma tense. Lab / Micro Data 09/02/23 20:38 09/03/23 04:55 Labs: Laboratory Results - last 24 hr 09/01/23 21:17: Crossmatch See Detail 09/02/23 04:29: Differential Comment SCANNED, Hypochromasia 2+, Phosphorus 2.2 L , Total Creatine Kinase 40 09/02/23 07:49: POC Glucose 192 H 09/02/23 11:28: POC Glucose 71 L 09/02/23 11:40: S.aureus Protein A PCR POSITIVE H, MRSA (PCR) Negative 09/02/23 20:38: Hgb 8.1 L, Hct 26.7 L 09/02/23 21:46: POC Glucose 303 H 09/03/23 04:55: PT 15.1 H, INR 1.2, APTT 40.6 H, Sodium 137, Potassium 4.1, Chloride 108 H, Carbon Dioxide 22.0, Anion Gap 7, BUN 30 H, Creatinine 1.28 H, Estim Creat Clear Calc 38.63, Est GFR (MDRD) Af Amer 53 L, Est GFR (MDRD) Non-Af 44 L, BUN/Creatinine Ratio 23.4 H, Glucose 163 H, Calcium 8.3 L 09/03/23 06:17: POC Glucose 169 H Micro: Microbiology 09/02/23 11:40 Wound - Leg, Left Gram Stain - Final
[2023-09-03 07:18] LABS: Differential Comment SCANNED; Differential Indicated SCAN CRITERIA MET
[2023-09-03 07:23] LABS: Thyroid Stim Hormone (TSH) 0.91 uIU/mL (0.358-3.74)
[2023-09-03 07:48] LABS: Bedside Glucose 186 mg/dL (74-106)
--- NOTE | 2023-09-03 08:37 | WOUNDNOTE ---
Dr Doty taking patient to surgery today for debridement of the left knee wound. will continue to follow. plan is for wound VAC application in the OR.
[2023-09-03] MEDS: 0.9% Saline Lock 10 ML Syringe IV ×2 (08:39→17:30)
--- NOTE | 2023-09-03 09:23 | PN.HOSP_ITS ---
Reason for Visit Reason for Visit: Diagnoses Cellulitis of left lower limb (09/02/23) Contusion of left knee, initial encounter (09/02/23) Contusion of left lower leg, initial encounter (09/02/23) Objective Data Objective Data Vital Signs: Vital Signs Temp Pulse Resp BP Pulse Ox O2 Del Method 98 F 61 18 143/53 H 98 Room Air 09/03/23 08:16 09/03/23 08:16 09/03/23 08:16 09/03/23 08:16 09/03/23 08:16 09/03/23 08:16 Oxygen Delivery Method Room Air Weight: 192 lb 5 oz Body Mass Index (BMI) 30.1 Intake & Output: Intake and Output for Last 24 Hours 09/01/23 09/02/23 09/03/23 23:59 23:59 23:59 Intake Total 1050 / 1470 742 / 742 0 / 0 Output Total 1500 / 2100 900 / 900 Balance 1050 / 1270 -758 / -1358 -900 / -900 Lab / Micro Data 09/03/23 04:55 09/03/23 04:55 Labs: Laboratory Results - last 24 hr 09/01/23 21:17: Crossmatch See Detail 09/02/23 11:28: POC Glucose 71 L 09/02/23 11:40: S.aureus Protein A PCR POSITIVE H, MRSA (PCR) Negative 09/02/23 16:03: POC Glucose 186 H 09/02/23 20:38: Hgb 8.1 L, Hct 26.7 L 09/02/23 21:46: POC Glucose 303 H 09/03/23 04:55: WBC 5.3, RBC 2.83 L, Hgb 7.9 L, Hct 26.7 L, MCV 94.3, MCH 27.9, MCHC 29.6 L, RDW Std Deviation 57.1 H, RDW Coeff of Kevyn 16.7 H, Plt Count 304, MPV 10.3, Immature Gran % (Auto) 0.800, Neut % (Auto) 71.9 H, Lymph % (Auto) 11.0 L, [place] % (Auto) 9.7, Eos % (Auto) 5.5 H, Baso % (Auto) 1.1 H, Absolute Neuts (auto) 3.8, Absolute Lymphs (auto) 0.58 L, Nucleated RBC % 0, Differential Comment SCANNED, PT 15.1 H, INR 1.2, APTT 40.6 H, Sodium 137, Potassium 4.1, Chloride 108 H, Carbon Dioxide 22.0, Anion Gap 7, BUN 30 H, Creatinine 1.28 H, Estim Creat Clear Calc 38.63, Est GFR (MDRD) Af Amer 53 L, Est GFR (MDRD) Non-Af 44 L, BUN/Creatinine Ratio 23.4 H, Glucose 163 H, Hemoglobin A1c 7.0 H, Calcium 8.3 L, TSH 0.91 09/03/23 06:17: POC Glucose 169 H Micro: Microbiology 09/02/23 11:40 Wound - Leg, Left Gram Stain - Final Physical Exam Narrative Seen and examined. Patient went for surgery today. Left knee hematoma evacuation. Patient fell down on her left knee several days ago and after 2 days she noticed fluid blister and it burst open to ulcer. No fever. Is painful to extend knee. Left hip pain also. After surgery patient is feeling mild drowsy nausea and lethargy. Physical exam: General: Awake, mild lethargy, morbid obesity BMI 45.5 kg/m? HEENT: Atraumatic, PERRLA, EOMI, Normocephalic Oral: Oral mucosa moist. No Gingival or Mucosal Lesions/ Ulcerations Neck: Supple, No JVD, Negative Carotid Bruits Lungs: Air entry diminished in bilateral lung bases. No crepitation/rhonchi Cardiovascular: Regular rate, Regular Rhythm, Normal S1, Normal S2, No murmurs Abdomen: Bowel Sounds Present, Soft, Non Tender, Non-Distended : No renal angle tenderness. No suprapubic tenderness. Extremities: No edema, Capillary Refill Less than 3 Seconds Skin: Left knee hematoma drainage with wound VAC. Musculoskeletal: Mild tenderness present around the left knee with hematoma. Mild tenderness of left side of pelvis, ischium bone and lateral hip. Status post left hip replacement. ROM restricted. Neurological: Cranial nerves II-XII grossly intact, DTR 2+/4. No acute focal neurological deficit. Psych/Mental Status: Flat affect Assessment & Plan Assessment/Plan (1) Contusion of knee, left: (2) Cellulitis of left leg: PLAN: Plan 72-year-old female was admitted for chief complaint of left knee pain hip pain and lower back pain with contusion and mild redness over left knee for 4 to 5 days. Patient also has venous ulcer which is draining yellowish fluid over left medial knee with history of chronic venous stasis. She slipped and fell down over her left knee, slowly landed over left hip and left buttock. Had an x-ray and was discharged from ED. No fever or chills. 1. Fall and subsequent left knee hematoma with surrounding inflammation and superficial ulceration with infection: Patient is being admitted on monitored bed. No fever. Patient started on IV antibiotic ceftriaxone 2 g IV daily. Orthopedic surgeon consulted for opinion PT and OT.Left knee immobilizer. 09/02: MRSA PCR from wound is negative. Discussed with the Dr. Gallegos. He agreed for taking her to the OR tomorrow with giving 48 hours of antiplatelet and anticoagulant agent. In the meantime we will try to optimize her hemoglobin. 09/03: Patient had evacuation of left knee hematoma and then wound VAC by Dr. Gallegos. Prelim wound culture shows Staph aureus 3+. Suspicion of MRSA although wound PCR negative. Empirically started on IV Zosyn and continue IV ceftriaxone until operative tissue culture sensitivity available. Operative culture was sent. PT and OT. Incentive spirometry. Patient has pure wick. Symptomatic management for nausea. 2. Acute blood loss anemia probably due to hematoma: Hemoglobin dropped to 6.5 from her baseline around 8. She had 1 unit of transfusion but is still hem oglobin 6.7 therefore 1 more unit ordered. No signs and symptoms of GI bleed. Iron infusion also ordered. 09/03: Hemoglobin dropped to 7.9. Continue to hold anticoagulant. 3. HTN/HLD/CAD status post CABG/chronic A-fib/pulmonary hypertension: Will continue to hold aspirin Plavix and Xarelto due to hematoma and severe anemia. Blood pressure systolic in 120s therefore continue to hold antihypertensive medications. Continue Lipitor. ? Had an echo in 06/02/2021 with an EF of 65% and an RVSP of 61 mmHg 4. DM2 ? Continue with her home insulin ? Accu-Cheks ACHS ? Sliding scale insulin 09/02: Glucose is high 243 but most recent glucose check 71. I had just insulin dose. 09/03: Glucose is 105. 5. Hypothyroidism ? Continue with Synthroid DVT: Ambulation, continue to hold Xarelto. Microbiology Past 72 Hours 09/03/23 11:40 Wound - Knee Gram Stain - Final 09/01/23 15:20 Blood Culture (Wb) - Anticubital Right Blood Culture - Preliminary No growth in 48 hours. 09/01/23 14:30 Blood Culture (Wb) - Anticubital Right Blood Culture - Preliminary No growth in 48 hours. 09/02/23 11:40 Wound - Leg, Left Gram Stain - Final 09/02/23 11:40 Wound - Leg, Left Wound Culture - Preliminary Staphylococcus aureus Laboratory Results 09/01/23 21:17: Crossmatch See Detail 09/02/23 16:03: POC Glucose 186 H 09/02/23 20:38: Hgb 8.1 L, Hct 26.7 L 09/02/23 21:46: POC Glucose 303 H 09/03/23 04:55: WBC 5.3, RBC 2.83 L, Hgb 7.9 L, Hct 26.7 L, MCV 94.3, MCH 27.9, MCHC 29.6 L, RDW Std Deviation 57.1 H, RDW Coeff of Kevyn 16.7 H, Plt Count 304, MPV 10.3, Immature Gran % (Auto) 0.800, Neut % (Auto) 71.9 H, Lymph % (Auto) 11.0 L, [place] % (Auto) 9.7, Eos % (Auto) 5.5 H, Baso % (Auto) 1.1 H, Absolute Neuts (auto) 3.8, Absolute Lymphs (auto) 0.58 L, Nucleated RBC % 0, Differential Comment SCANNED, PT 15.1 H, INR 1.2, APTT 40.6 H, Sodium 137, Potassium 4.1, Chloride 108 H, Carbon Dioxide 22.0, Anion Gap 7, BUN 30 H, Creatinine 1.28 H, Estim Creat Clear Calc 38.63, Est GFR (MDRD) Af Amer 53 L, Est GFR (MDRD) Non-Af 44 L, BUN/Creatinine Ratio 23.4 H, Glucose 163 H, Hemoglobin A1c 7.0 H, Calcium 8.3 L, TSH 0.91 09/03/23 06:17: POC Glucose 169 H 09/03/23 14:10: POC Glucose 105 Charges/Coding Visit Charges Inpatient E&M: 02839 Subs Hosp L2
[2023-09-03] MEDS: 0.9% Normal Saline (1000mL) 1,000 ML 15 ML IV (09:32)
[2023-09-03] MEDS: Ceftriaxone 2 GM in 0.9% Normal Saline (50mL MB+) 50 ML IV (11:09)
--- NOTE | 2023-09-03 12:15 | OP.PCM_ITS ---
Operative Report Date of Procedure: 09/03/23 Preoperative diagnosis: [Left knee hematoma] Postoperative diagnosis: Same Procedure: Evacuation of hematoma application of wound VAC Anesthesia: General LMA EBL: 50 Complications: None Condition: Stable to PACU Specimen: Culture aerobic anaerobic Indication for procedure: 72-year-old female on Xarelto Plavix and aspirin fell off the toilet approximately week and a half ago developed hematoma developed superficial blistering and skin necrosis, CT scan demonstrated large subcutaneou s hematoma. There was concern for superficial infection as there was weeping and some white granulation tissue, she was on IV ceftriaxone every 24 hours 2 g prior to surgery. Thorough discussion was had with the patient in regards to operative versus nonoperative intervention and the benefits of evacuation of the hematoma to allow for skin healing as she already developed necrosis of her skin over the hematoma, risk benefits and alternatives were reviewed including risk of continued bleeding ,infection nerve, artery, bone, tissue damage, blood clot need for further surgery and continued pain Wound healing complications. Procedure: Patient was met the preoperative holding area once again the operative extremity was identified by both patient and physician was marked patient was met by anesthesia and IV was started she was brought back to the operating room wheeled cart transfer the operative table in supine position. Patient was prepped and draped in usual sterile fashion a timeout was called ensure the proper patient procedure extremity were being contemplated. Tourniquet was inflated and a 10 blade scalpel was used to make a vertical incision over the area of necrosis the necrotic tissue was debrided with sharp dissection ultra swabs were taken of the underlying hematoma. There was a large amount of hematoma in the subcutaneous tissues which was Avaxim evacuated, thoro ugh irrigation of the cavity was performed with pulse lavage irrigation curettes were used as well as a diluted Betadine rinse which was allowed to sit for a few minutes and then washed out there was a large vein that was bleeding diffusely this was tied off with 3-0 Vicryl and the inferior part of the incision wound. Tourniquet was let down there was no further bleeding. There is no violation of the joint capsule . due to the cavity size a wound VAC was felt to be appropriate a small sponge was used (1 only) of note there was about 2 inches of undermining on the medial and superior and inferior part of the wound and about 3 inches on the lateral part. Standard application of the wound VAC was performed and seal check was clear patient tolerated the procedure well all counts were correct there is no intraoperative complications she was transferred PACU in stable condition. I will consult wound care if she will need VAC changes and follow-up in the wound care center.
[2023-09-03] MEDS: oxyCODONE 5 MG Tablet PO ×2 (14:17→21:45)
[2023-09-03] MEDS: Acetaminophen 325 MG Tablet 650 MG PO (14:18)
[2023-09-03] MEDS: Amiodarone 200 MG Tablet 100 MG PO (14:21)
[2023-09-03] MEDS: Fenofibrate 145 MG Tablet PO (14:21)
[2023-09-03] MEDS: Bumetanide 0.5 MG Tablet PO (14:22)
[2023-09-03 14:43] LABS: Bedside Glucose 105 mg/dL (74-106)
--- NOTE | 2023-09-03 17:00 | CASEMGMT ---
FLORESITA PLATA Face to Face with patient for initial transition planning/care coordination assessment. RN BONI introduced self and role at [facility]. Patient lying in bed, alert and oriented. Patient willing to participate in assessment and is able to answer all questions appropriately. Care providers, pharmacy, and demographics verified. Patient wishes to discharge home but willing to go to SNF pending course of treatment and progress with therapy. Patient states she has no further needs or concerns at this time. CM to follow for discharge planning needs that may arise. PCP: Juan Francisco Specialists: vy Oconnor; [facility] Wound Center Preferred Pharmacy: [facility] Insurance: [facility] Prescription Benefit: yes Living Will/HPOA: none LNOK: daughter Living Arrangements: Patient lives with adult grandson in a 2 story home. Patient was independent and able to ambulate stairs at home. Transportation:self, grandson DME/HHC: Patient has shower chair, BSC, raised toilet, grab bars, walker at home. Patient has been to [facility] in the past. Patient has had [facility] HHC in the past. Disposition Plan: TBD, anticipate HHC vs SNF pending course of treatment and progress with therapy Tammy REDDY, RN, CM
[2023-09-03] MEDS: Metoclopramide 10 MG/2 ML Vial 5 MG IV (17:29)
[2023-09-03] MEDS: Linezolid 600 MG 600 MG/300 ML BAG 200 MG IV (17:30)
[2023-09-03 17:43] LABS: Bedside Glucose 125 mg/dL (74-106)
[2023-09-03] MEDS: Insulin Lispro 100 UNIT/ML INSULN.PEN SC (21:59)
[2023-09-03] MEDS: Atorvastatin Calcium 40 MG Tablet PO (22:00)
[2023-09-03] MEDS: Insulin Glargine-YFGN 100 UNIT/ML Pen 25 UNIT SC (22:00)
[2023-09-03] MEDS: Ascorbic Acid 500 MG Tablet PO (22:00)
[2023-09-03 22:30] LABS: Bedside Glucose 215 mg/dL (74-106)
[2023-09-04] VITALS (8 sets, daily range): BP systolic 131–150; BP diastolic 49–66; PULSE 60–69; RESP 16–18; TEMP 36.4–37.1; O2SAT 96–100; BMI 30.1
[2023-09-04] MEDS: Levothyroxine 100 MCG Tablet 200 MCG PO (06:47)
[2023-09-04 09:30] LABS: Absolute Lymphocyte Count 0.54 X10^3/uL (0.83-4.51); Absolute Neutrophil Count 4.4 X10^3/uL (2.0-7.7); Basophil# 0.05 X10^3/uL; Basophil% 0.8 % (0-1); Eosinophil# 0.54 X10^3/uL; Eosinophils% 8.8 % (0-5); Hematocrit 23.7 % (37-47); Lymphocyte # 0.54 X10^3/ul (0.83-4.51); Lymphocyte % 8.8 % (19-41); Mean Corp Hgb Conc 29.5 g/dL (32-36); Mean Corpuscular Hgb 27.8 pg (27.0-32.0); Mean Platelet Vol. 9.7 fl (6.2-12.0); Monocyte# 0.54 X10^3/uL; Monocyte% 8.8 % (0-10); NRBC Flagged by Analyzer 0 % (0-5); Neutrophil # 4.44 X10^3/uL (2.7-7.7); POSITIVE DIFFERENTIAL YES; Platelet Count 341 K/mm3 (150-450); RBC Distribution Width CV 16.8 % (11.6-14.6); RBC Distribution Width SD 57.1 fl (35.1-43.9); Red Blood Count 2.52 M/mm3 (4.2-5.4); White Blood Count 6.2 K/mm3 (4.4-11.0)
[2023-09-04 09:33] LABS: Differential Indicated SCAN CRITERIA MET
[2023-09-04 09:33] LABS: Bedside Glucose 159 mg/dL (74-106)
[2023-09-04 09:46] LABS: Anion Gap 5 (5-15); BUN 23 mg/dL (7-18); BUN/Creat Ratio 18.9 RATIO (10-20); Calcium,Total 8.5 mg/dL (8.5-10.1); Chloride 109 mmol/L (98-107); Creatinine, Serum 1.22 mg/dL (0.55-1.02); EST Glomerular Filtration Rate 46 mL/min (>60); Est Glom Filt Rate - Afr Amer 56 mL/min (>60); Estimated Creatinine Clearance 40.53 ml/min; Glucose 193 mg/dL (74-106); Potassium 4.1 mmol/L (3.5-5.1); Sodium Level 137 mmol/L (136-145)
[2023-09-04] MEDS: 0.9% Saline Lock 10 ML Syringe IV ×2 (10:09→17:04)
[2023-09-04] MEDS: Ceftriaxone 2 GM in 0.9% Normal Saline (50mL MB+) 50 ML IV (10:09)
[2023-09-04] MEDS: Amiodarone 200 MG Tablet 100 MG PO (10:10)
[2023-09-04] MEDS: Ascorbic Acid 500 MG Tablet PO ×2 (10:11→20:11)
[2023-09-04] MEDS: Bumetanide 0.5 MG Tablet PO (10:11)
[2023-09-04] MEDS: Fenofibrate 145 MG Tablet PO (10:11)
--- NOTE | 2023-09-04 10:59 | PCM.PN.ORT ---
Subjective Subjective Patient was seen and examined today. She states she is doing well. Pain is a 3-4/10 at rest and 5/10 with ambulation. She states she was working with PT this morning and it went well. She denies nausea, vomiting, shortness of breath, fevers, chills, chest pain. States mostly she feels tired today. Objective Data Objective Data Vital Signs: Vital Signs Temp Pulse Resp BP Pulse Ox O2 Del Method 97.7 F L 63 16 149/50 H 97 Room Air 09/04/23 10:00 09/04/23 10:00 09/04/23 10:00 09/04/23 10:00 09/04/23 10:00 09/04/23 10:00 Oxygen Delivery Method Room Air Weight: 192 lb 5 oz Body Mass Index (BMI) 30.1 Intake & Output: Intake and Output for Last 24 Hours 09/02/23 09/03/23 09/04/23 23:59 23:59 23:59 Intake Total 742 / 742 700 / 1300 1037.25 / 1037.25 Output Total 1500 / 2100 900 / 1350 1100 / 1100 Balance -758 / -1358 -200 / -50 -62.75 / -62.75 Lab / Micro Data 09/04/23 09:18 09/04/23 09:18 Labs: Laboratory Results - last 24 hr 09/03/23 14:10: POC Glucose 105 09/03/23 17:19: POC Glucose 125 H 09/03/23 21:55: POC Glucose 215 H 09/04/23 08:35: POC Glucose 159 H 09/04/23 09:18: WBC 6.2, RBC 2.52 L, Hgb 7.0 L, Hct 23.7 L, MCV 94.0, MCH 27.8, MCHC 29.5 L, RDW Std Deviation 57.1 H, RDW Coeff of Kevyn 16.8 H, Plt Count 341, MPV 9.7, Immature Gran % (Auto) 0.800, Neut % (Auto) 72.0 H, Lymph % (Auto) 8.8 L, [place] % (Auto) 8.8, Eos % (Auto) 8.8 H, Baso % (Auto) 0.8, Absolute Neuts (auto) 4.4, Absolute Lymphs (auto) 0.54 L, Nucleated RBC % 0, Sodium 137, Potassium 4.1, Chloride 109 H, Carbon Dioxide 23.0, Anion Gap 5, BUN 23 H, Creatinine 1.22 H, Estim Creat Clear Calc 40.53, Est GFR (MDRD) Af Amer 56 L, Est GFR (MDRD) Non-Af 46 L, BUN/Creatinine Ratio 18.9, Glucose 193 H, Calcium 8.5 Micro: Microbiology 09/02/23 11:40 Wound - Leg, Left Gram Stain - Final 09/02/23 11:40 Wound - Leg, Left Wound Culture - Final Staphylococcus aureus 09/03/23 11:40 Wound - Knee Gram Stain - Final 09/01/23 15:20 Blood Culture (Wb) - Anticubital Right Blood Culture - Preliminary No growth in 48 hours. 09/01/23 14:30 Blood Culture (Wb) - Anticubital Right Blood Culture - Preliminary No growth in 48 hours. Physical Exam Const alert and oriented x3 General Appearance: cooperative Extremity Extremity Narrative: Upon inspection of the left lower extremity there is a wound VAC in place with good seal. Skin edges still appear viable. Still some erythema from the cellulitis. Neurovascularly intact. Able to plantarflex and dorsiflex. Negative Homans. Assessment & Plan Assessment/Plan (1) Orthopedic aftercare: PLAN: Plan S/p left knee hematoma with evacuation and placement of wound vac, DOS: 09/03/2023. Dr. Gallegos consulted wound care and placed a referral to the wound center. She should continue to elevate left lower extremity, ice PRN, SCDs. PT/OT - WBAT, encourage knee ROM and ambulation
[2023-09-04 11:02] LABS: Platelet Estimate ADEQUATE (ADEQ); Red Cell Morphology NORM C+C NORMAL (NORM C&C)
[2023-09-04] MEDS: Linezolid 600 MG 600 MG/300 ML BAG 200 MG IV (11:40)
[2023-09-04] MEDS: Insulin Lispro 100 UNIT/ML INSULN.PEN SC ×3 (11:42→20:11)
[2023-09-04] MEDS: Insulin Lispro 100 UNIT/ML INSULN.PEN 20 UNIT SC (11:43)
[2023-09-04 12:28] LABS: Bedside Glucose 232 mg/dL (74-106)
--- NOTE | 2023-09-04 13:26 | PN.HOSP_ITS ---
Reason for Visit Reason for Visit: Diagnoses Cellulitis of left lower limb (09/02/23) Contusion of left knee, initial encounter (09/02/23) Contusion of left lower leg, initial encounter (09/02/23) Encounter for other orthopedic aftercare (09/02/23) Objective Data Objective Data Vital Signs: Vital Signs Temp Pulse Resp BP Pulse Ox O2 Del Method 97.7 F L 63 16 149/50 H 97 Room Air 09/04/23 10:00 09/04/23 10:00 09/04/23 10:00 09/04/23 10:00 09/04/23 10:00 09/04/23 10:00 Oxygen Delivery Method Room Air Weight: 192 lb 5 oz Body Mass Index (BMI) 30.1 Intake & Output: Intake and Output for Last 24 Hours 09/02/23 09/03/23 09/04/23 23:59 23:59 23:59 Intake Total 742 / 742 700 / 1300 1387.25 / 1387.25 Output Total 1500 / 2100 900 / 1350 1300 / 1300 Balance -758 / -1358 -200 / -50 87.25 / 87.25 Lab / Micro Data 09/04/23 09:18 09/04/23 09:18 Labs: Laboratory Results - last 24 hr 09/03/23 14:10: POC Glucose 105 09/03/23 17:19: POC Glucose 125 H 09/03/23 21:55: POC Glucose 215 H 09/04/23 08:35: POC Glucose 159 H 09/04/23 09:18: WBC 6.2, RBC 2.52 L, Hgb 7.0 L, Hct 23.7 L, MCV 94.0, MCH 27.8, MCHC 29.5 L, RDW Std Deviation 57.1 H, RDW Coeff of Kevyn 16.8 H, Plt Count 341, MPV 9.7, Immature Gran % (Auto) 0.800, Neut % (Auto) 72.0 H, Lymph % (Auto) 8.8 L, [place] % (Auto) 8.8, Eos % (Auto) 8.8 H, Baso % (Auto) 0.8, Absolute Neuts (auto) 4.4, Absolute Lymphs (auto) 0.54 L, Nucleated RBC % 0, Platelet Estimate ADEQUATE, RBC Morphology NORM C+C, Sodium 137, Potassium 4.1, Chloride 109 H, Carbon Dioxide 23.0, Anion Gap 5, BUN 23 H, Creatinine 1.22 H, Estim Creat Clear Calc 40.53, Est GFR (MDRD) Af Amer 56 L, Est GFR (MDRD) Non-Af 46 L, BUN/ Creatinine Ratio 18.9, Glucose 193 H, Calcium 8.5 09/04/23 11:42: POC Glucose 232 H Micro: Microbiology 09/03/23 11:40 Wound - Knee Gram Stain - Final 09/03/23 11:40 Wound - Knee Wound Culture - Preliminary Staphylococcus aureus 09/02/23 11:40 Wound - Leg, Left Gram Stain - Final 09/02/23 11:40 Wound - Leg, Left Wound Culture - Final Staphylococcus aureus 09/01/23 15:20 Blood Culture (Wb) - Anticubital Right Blood Culture - Preliminary No growth in 48 hours. 09/01/23 14:30 Blood Culture (Wb) - Anticubital Right Blood Culture - Preliminary No growth in 48 hours. Physical Exam Narrative Seen and examined. Left knee status post hematoma evacuation. Still swollen and mildly tender. Hemoglobin dropped to 7.0. Prior to that, patient fell down on her left knee several days ago and after 2 days she noticed fluid blister and it burst open to ulcer. No fever. Is painful to extend knee. Left hip pain also. Physical exam: General: Awake, alert oriented x 3. Morbid obesity BMI 45.5 kg/m? HEENT: Atraumatic, PERRLA, EOMI, Normocephalic Oral: Oral mucosa moist. No Gingival or Mucosal Lesions/ Ulcerations Neck: Supple, No JVD, Negative Carotid Bruits Lungs: Air entry diminished in bilateral lung bases. No crepitation/rhonchi Cardiovascular: Regular rate, Regular Rhythm, Normal S1, Normal S2, No murmurs Abdomen: Bowel Sounds Present, Soft, Non Tender, Non-Distended : No renal angle tenderness. No suprapubic tenderness. Extremities: No edema, Capillary Refill Less than 3 Seconds Skin: Left knee hematoma drainage with wound VAC. Musculoskeletal: Mild tenderness present around the left knee with hematoma. Status post left hip replacement. ROM restricted. Neurological: Cranial nerves II-XII grossly intact, DTR 2+/4. No acute focal neurological deficit. Psych/Mental Status: Flat affect Assessment & Plan Assessment/Plan (1) Contusion of knee, left: (2) Cellulitis of left leg: PLAN: Plan 72-year-old female was admitted for chief complaint of left knee pain hip pain and lower back pain with contusion and mild redness over left knee for 4 to 5 days. Patient also has venous ulcer which is draining yellowish fluid over left medial knee with history of chronic venous stasis. She slipped and fell down over her left knee, slowly landed over left hip and left buttock. Had an x-ray and was discharged from ED. No fever or chills. 1. Fall and subsequent left knee hematoma with surrounding inflammation and superficial ulceration with infection: Patient is being admitted on monitored bed. No fever. Patient started on IV antibiotic ceftriaxone 2 g IV daily. Orthopedic surgeon consulted for opinion PT and OT.Left knee immobilizer. 09/02: MRSA PCR from wound is negative. Discussed with the Dr. Gallegos. He ag chris for taking her to the OR tomorrow with giving 48 hours of antiplatelet and anticoagulant agent. In the meantime we will try to optimize her hemoglobin. 09/03: Patient had evacuation of left knee hematoma and then wound VAC by Dr. Gallegos. Prelim wound culture shows Staph aureus 3+. Suspicion of MRSA although wound PCR negative. Empirically started on IV Zosyn and continue IV ceftriaxone until operative tissue culture sensitivity available. Operative culture was sent. PT and OT. Incentive spirometry. Patient has pure wick. Symptomatic management for nausea. 09/04: Wound culture shows MSSA. Will narrow the antibiotic to IV cefazolin 2 g IV every 8 hourly. 2. Acute blood loss anemia probably due to hematoma: Hemoglobin dropped to 6.5 from her baseline around 8. She had 1 unit of transfusion but is still hemoglobin 6.7 therefore 1 more unit ordered. No signs and symptoms of GI bleed. Iron infusion also ordered. 09/03: Hemoglobin dropped to 7.9. Continue to hold anticoagulant. 09/04: Hemoglobin dropped to 7.0. 1 unit PRBC transfusion ordered. 3. HTN/HLD/CAD status post CABG/chronic A-fib/pulmonary hypertension: Will continue to hold aspirin Plavix and Xarelto due to hematoma and severe anemia. Blood pressure systolic in 120s therefore continue to hold antihypertensive medications. Continue Lipitor. ? Had an echo in 06/02/2021 with an EF of 65% and an RVSP of 61 mmHg 4. DM2 ? Continue with her home insulin ? Accu-Cheks ACHS ? Sliding scale insulin 09/02: Glucose is high 243 but most recent glucose check 71. I had just insulin dose. 09/03: Glucose is 105. 5. Hypothyroidism ? Continue with Synthroid DVT: Ambulation, continue to hold Xarelto. Charges/Coding Visit Charges Inpatient E&M: 66043 Subs Hosp L2
[2023-09-04] MEDS: Cefazolin 2 GM in 0.9% Normal Saline (100mL Bag) 100 ML IV ×2 (17:04→21:15)
[2023-09-04] MEDS: DiphenhydrAMINE 50 MG/ML Syringe 25 MG IV (17:11)
[2023-09-04] MEDS: Famotidine 200 MG/20 ML MDV 20 MG in 0.9% Normal Saline (Pres. free 8 ML 300 MG IV (17:11)
[2023-09-04] MEDS: MethylPREDNISolone 125 MG/2 ML Vial 60 MG IV (17:15)
--- NOTE | 2023-09-04 19:40 | NURSING ---
Four hour time elapse so RN took down blood 98ml wasted
[2023-09-04 19:42] LABS: Bedside Glucose 160 mg/dL (74-106)
[2023-09-04] MEDS: Acetaminophen 325 MG Tablet 650 MG PO (20:10)
[2023-09-04] MEDS: oxyCODONE 5 MG Tablet PO (20:10)
[2023-09-04] MEDS: Insulin Glargine-YFGN 100 UNIT/ML Pen 25 UNIT SC (20:11)
[2023-09-04] MEDS: Atorvastatin Calcium 40 MG Tablet PO (20:11)
[2023-09-04 20:33] LABS: Bedside Glucose 247 mg/dL (74-106)
[2023-09-05] MEDS: Levothyroxine 100 MCG Tablet 200 MCG PO (03:26)
[2023-09-05 03:30] VITALS: BP 157/60; PULSE 66; RESP 18; TEMP 36.4; O2SAT 98
[2023-09-05] MEDS: Cefazolin 2 GM in 0.9% Normal Saline (100mL Bag) 100 ML IV ×3 (05:43→22:53)
[2023-09-05 07:32] LABS: Absolute Lymphocyte Count 0.26 X10^3/uL (0.83-4.51); Absolute Neutrophil Count 3.9 X10^3/uL (2.0-7.7); Hematocrit 25.1 % (37-47); Hemoglobin 7.3 g/dL (12.0-15.0); Lymphocyte # 0.26 X10^3/ul (0.83-4.51); Lymphocyte % 5.9 % (19-41); Mean Corp Hgb Conc 29.1 g/dL (32-36); Mean Corpuscular Hgb 27.8 pg (27.0-32.0); Mean Corpuscular Volume 95.4 fL (81-99); Mean Platelet Vol. 9.9 fl (6.2-12.0); Monocyte# 0.14 X10^3/uL; Monocyte% 3.2 % (0-10); NRBC Flagged by Analyzer 0 % (0-5); Neutrophil # 3.94 X10^3/uL (2.7-7.7); POSITIVE DIFFERENTIAL YES; Platelet Count 305 K/mm3 (150-450); Red Blood Count 2.63 M/mm3 (4.2-5.4); White Blood Count 4.4 K/mm3 (4.4-11.0)
[2023-09-05 07:33] LABS: Differential Indicated SCAN CRITERIA MET
[2023-09-05] MEDS: Insulin Lispro 100 UNIT/ML INSULN.PEN SC ×4 (07:50→21:36)
[2023-09-05] MEDS: Insulin Lispro 100 UNIT/ML INSULN.PEN 10 UNIT SC (07:50)
[2023-09-05] MEDS: Fenofibrate 145 MG Tablet PO (07:51)
[2023-09-05] MEDS: Ascorbic Acid 500 MG Tablet PO ×2 (07:51→21:36)
[2023-09-05 08:00] LABS: Anion Gap 4 (5-15); BUN 25 mg/dL (7-18); BUN/Creat Ratio 18.4 RATIO (10-20); Calcium,Total 8.5 mg/dL (8.5-10.1); Chloride 109 mmol/L (98-107); Creatinine, Serum 1.36 mg/dL (0.55-1.02); EST Glomerular Filtration Rate 41 mL/min (>60); Est Glom Filt Rate - Afr Amer 49 mL/min (>60); Estimated Creatinine Clearance 36.36 ml/min; Glucose 299 mg/dL (74-106); Potassium 4.7 mmol/L (3.5-5.1); Sodium Level 136 mmol/L (136-145)
[2023-09-05 08:01] LABS: Hypochromasia 1+
[2023-09-05 08:10] LABS: Bedside Glucose 286 mg/dL (74-106)
[2023-09-05 09:35] VITALS: BP 152/62; PULSE 60; RESP 18; TEMP 36.6; O2SAT 100
[2023-09-05] MEDS: Bumetanide 0.5 MG Tablet PO (09:36)
[2023-09-05] MEDS: Amiodarone 200 MG Tablet 100 MG PO (09:36)
--- NOTE | 2023-09-05 09:37 | PCM.PN.HOSP ---
Reason for Visit Reason for Visit: Diagnoses Cellulitis of left lower limb (09/02/23) Contusion of left knee, initial encounter (09/02/23) Contusion of left lower leg, initial encounter (09/02/23) Encounter for other orthopedic aftercare (09/02/23) Objective Data Objective Data Vital Signs: Vital Signs Temp Pulse Resp BP Pulse Ox O2 Del Method 97.8 F 60 18 152/62 H 100 Room Air 09/05/23 09:35 09/05/23 09:35 09/05/23 09:35 09/05/23 09:35 09/05/23 09:35 09/05/23 09:35 Oxygen Delivery Method Room Air Weight: 192 lb 5 oz Body Mass Index (BMI) 30.1 Intake & Output: Intake and Output for Last 24 Hours 09/03/23 09/04/23 09/05/23 23:59 23:59 23:59 Intake Total 700 / 1300 2495.50 / 2495.50 208.5 / 208.5 Output Total 900 / 1350 1550 / 1950 1400 / 1400 Balance -200 / -50 945.50 / 545.50 -1191.5 / -1191.5 Lab / Micro Data 09/05/23 07:00 09/05/23 07:00 Labs: Laboratory Results - last 24 hr 09/01/23 21:17: Crossmatch See Detail 09/04/23 09:18: Platelet Estimate ADEQUATE, RBC Morphology NORM C+C, Sodium 137, Potassium 4.1, Chloride 109 H, Carbon Dioxide 23.0, Anion Gap 5, BUN 23 H, Creatinine 1.22 H, Estim Creat Clear Calc 40.53, Est GFR (MDRD) Af Amer 56 L, Est GFR (MDRD) Non-Af 46 L, BUN/Creatinine Ratio 18.9, Glucose 193 H, Calcium 8.5 09/04/23 11:42: POC Glucose 232 H 09/04/23 15:51: POC Glucose 160 H 09/04/23 20:09: POC Glucose 247 H 09/05/23 07:00: WBC 4.4, RBC 2.63 L, Hgb 7.3 L, Hct 25.1 L, MCV 95.4, MCH 27.8, MCHC 29.1 L, RDW Std Deviation 55.0 H, RDW Coeff of Kevyn 16.0 H, Plt Count 305, MPV 9.9, Immature Gran % (Auto) 0.900, Neut % (Auto) 90.0 H, Lymph % (Auto) 5.9 L, [place] % (Auto) 3.2, Eos % (Auto) 0.0, Baso % (Auto) 0.0, Absolute Neuts (auto) 3.9, Absolute Lymphs (auto) 0.26 L, Nucleated RBC % 0, Hypochromasia 1+, Sodium 136, Potassium 4.7, Chloride 109 H, Carbon Dioxide 23.0, Anion Gap 4 L, BUN 25 H, Creatinine 1.36 H, Estim Creat Clear Calc 36.36, Est GFR (MDRD) Af Amer 49 L, Est GFR (MDRD) Non-Af 41 L, BUN/Creatinine Ratio 18.4, Glucose 299 H, Calcium 8.5 09/05/23 07:48: POC Glucose 286 H Micro: Microbiology 09/03/23 11:40 Wound - Knee Gram Stain - Final 09/03/23 11:40 Wound - Knee Wound Culture - Final Staphylococcus aureus 09/03/23 11:40 Wound - Knee Anaerobic Culture - Preliminary Checking for anaerobes, further studies to follow. 09/02/23 11:40 Wound - Leg, Left Gram Stain - Final 09/02/23 11:40 Wound - Leg, Left Wound Culture - Final Staphylococcus aureus 09/01/23 15:20 Blood Culture (Wb) - Anticubital Right Blood Culture - Preliminary No growth in 48 hours. 09/01/23 14:30 Blood Culture (Wb) - Anticubital Right Blood Culture - Preliminary No growth in 48 hours. Physical Exam Narrative Seen and examined. Left knee status post hematoma evacuation. Still swollen and mildly tender. Hemoglobin dropped to 7.0. Patient mild denies shortness of breath after giving PRBC transfusion. Hemoglobin increased to 7.3. Prior to that, patient fell down on her left knee several days ago and after 2 days she noticed fluid blister and it burst open to ulcer. No fever. Is painful to extend knee. Left hip pain also. Physical exam: General: Awake, alert oriented x 3. Morbid obesity BMI 45.5 kg/m? HEENT: Atraumatic, PERRLA, EOMI, Normocephalic Oral: Oral mucosa moist. No Gingival or Mucosal Lesions/ Ulcerations Neck: Supple, No JVD, Negative Carotid Bruits Lungs: Air entry diminished in bilateral lung bases. No crepitation/rhonchi Cardiovascular: Regular rate, Regular Rhythm, Normal S1, Normal S2, No murmurs Abdomen: Bowel Sounds Present, Soft, Non Tender, Non-Distended : No renal angle tenderness. No suprapubic tenderness. Extremities: No edema, Capillary Refill Less than 3 Seconds Skin: Left knee hematoma drainage with wound VAC. Musculoskeletal: Mild tenderness present around the left knee with hematoma. Status post left hip replacement. ROM restricted. Neurological: Cranial nerves II-XII grossly intact, DTR 2+/4. No acute focal neurological deficit. Psych/Mental Status: Flat affect Assessment & Plan Assessment/Plan (1) Contusion of knee, left: (2) Cellulitis of left leg: PLAN: Plan 72-year-old female was admitted for chief complaint of left knee pain hip pain and lower back pain with contusion and mild redness over left knee for 4 to 5 days. Patient also has venous ulcer which is draining yellowish fluid over left medial knee with history of chronic venous stasis. She slipped and fell down over her left knee, slowly landed over left hip and left buttock. Had an x-ray and was discharged from ED. No fever or chills. 1. Fall and subsequent left knee hematoma with surrounding inflammation and superficial ulceration with infection: Patient is being admitted on monitored bed. No fever. Patient started on IV antibiotic ceftriaxone 2 g IV daily. Orthopedic surgeon consulted for opinion PT and OT.Left knee immobilizer. 09/02: MRSA PCR from wound is negative. Discussed with the Dr. Gallegos. He agreed for taking her to the OR tomorrow with giving 48 hours of antiplatelet and anticoagulant agent. In the meantime we will try to optimize her hemoglobin. 09/03: Patient had evacuation of left knee hematoma and then wound VAC by Dr. Gallegos. Prelim wound culture shows Staph aureus 3+. Suspicion of MRSA although wound PCR negative. Empirically started on IV Zosyn and continue IV ceftriaxone until operative tissue culture sensitivity available. Operative culture was sent. PT and OT. Incentive spirometry. Patient has pure wick. Symptomatic management for nausea. 09/04: Wound culture shows MSSA. Will narrow the antibiotic to IV cefazolin 2 g IV every 8 hourly. 2. Acute blood loss anemia probably due to hematoma: Hemoglobin dropped to 6.5 from her baseline around 8. She had 1 unit of transfusion but is still hemoglobin 6.7 therefore 1 more unit ordered. No signs and symptoms of GI bleed. Iron infusion also ordered. 09/03: Hemoglobin dropped to 7.9. Continue to hold anticoagulant. 09/04: Hemoglobin dropped to 7.0. 1 unit PRBC transfusion ordered. 09/05: Hemoglobin 7.3 after 1 unit of PRBC transfusion. Patient had mild shortness of breath and dizziness after restarting PRBC but got better after giving IV Solu-Medrol, Pepcid and Benadryl and then resume transfusion after half hour given medications. 3. HTN/HLD/CAD status post CABG/chronic A-fib/pulmonary hypertension: Will continue to hold aspirin Plavix and Xarelto due to hematoma and severe anemia. Blood pressure systolic in 120s therefore continue to hold antihypertensive medications. Continue Lipitor. ? Had an echo in 06/02/2021 with an EF of 65% and an RVSP of 61 mmHg 4. DM2 ? Continue with her home insulin ? Accu-Cheks ACHS ? Sliding scale insulin 09/02: Glucose is high 243 but most recent glucose check 71. I had just insulin dose. 09/03: Glucose is 105. 5. Hypothyroidism ? Continue with Synthroid DVT: Ambulation, continue to hold Xarelto. Charges/Coding Visit Charges Inpatient E&M: 26897 Subs Hosp L2
[2023-09-05 11:41] LABS: Bedside Glucose 239 mg/dL (74-106)
--- NOTE | 2023-09-05 12:21 | NURSING ---
Report called to FLORESITA Pierre. Patient to go to room [id number]
[2023-09-05 12:54] VITALS: BP 134/98; PULSE 65; RESP 16; TEMP 36.6; O2SAT 100
[2023-09-05] MEDS: Insulin Lispro 100 UNIT/ML INSULN.PEN 20 UNIT SC (13:30)
[2023-09-05] MEDS: Sodium Ferric Gluconat/Sucrose 250 MG in 0.9% Normal Saline (250mL Bag) 250 ML 135 MG IV (16:35)
[2023-09-05 16:52] VITALS: BP 149/50; PULSE 61; RESP 16; TEMP 36.6; O2SAT 97
[2023-09-05 17:02] LABS: Bedside Glucose 254 mg/dL (74-106)
[2023-09-05] MEDS: Insulin Glargine-YFGN 100 UNIT/ML Pen 25 UNIT SC (21:35)
[2023-09-05] MEDS: Atorvastatin Calcium 40 MG Tablet PO (21:36)
[2023-09-05 21:56] VITALS: BP 145/54; PULSE 64; RESP 16; TEMP 36.8; O2SAT 100
[2023-09-05] MEDS: oxyCODONE 5 MG Tablet PO (22:05)
[2023-09-05] MEDS: Acetaminophen 325 MG Tablet 650 MG PO (22:05)
[2023-09-05] MEDS: Nystatin Powder 15gm Bottle 1 APPLIC TOPICAL (22:05)
[2023-09-05] MEDS: Menthol/Lanolin/Calamine/Znox 113 GM Tube 1 APPLIC TOPICAL (22:05)
[2023-09-05 22:07] LABS: Bedside Glucose 207 mg/dL (74-106)
[2023-09-06 04:52] LABS: Absolute Lymphocyte Count 0.99 X10^3/uL (0.83-4.51); Absolute Neutrophil Count 3.4 X10^3/uL (2.0-7.7); Basophil# 0.06 X10^3/uL; Basophil% 1.1 % (0-1); Eosinophil# 0.24 X10^3/uL; Eosinophils% 4.5 % (0-5); Hematocrit 24.8 % (37-47); Hemoglobin 7.3 g/dL (12.0-15.0); Lymphocyte # 0.99 X10^3/ul (0.83-4.51); Lymphocyte % 18.5 % (19-41); Mean Corp Hgb Conc 29.4 g/dL (32-36); Mean Corpuscular Hgb 28.2 pg (27.0-32.0); Mean Corpuscular Volume 95.8 fL (81-99); Mean Platelet Vol. 9.7 fl (6.2-12.0); Monocyte# 0.67 X10^3/uL; Monocyte% 12.5 % (0-10); NRBC Flagged by Analyzer 0 % (0-5); Neutrophil # 3.36 X10^3/uL (2.7-7.7); Platelet Count 386 K/mm3 (150-450); RBC Distribution Width CV 16.1 % (11.6-14.6); RBC Distribution Width SD 55.9 fl (35.1-43.9); Red Blood Count 2.59 M/mm3 (4.2-5.4); White Blood Count 5.3 K/mm3 (4.4-11.0)
[2023-09-06 05:31] LABS: Anion Gap 5 (5-15); BUN 30 mg/dL (7-18); Calcium,Total 8.1 mg/dL (8.5-10.1); Chloride 109 mmol/L (98-107); Creatinine, Serum 1.25 mg/dL (0.55-1.02); EST Glomerular Filtration Rate 45 mL/min (>60); Est Glom Filt Rate - Afr Amer 54 mL/min (>60); Estimated Creatinine Clearance 39.56 ml/min; Glucose 57 mg/dL (74-106); Potassium 4.1 mmol/L (3.5-5.1); Sodium Level 139 mmol/L (136-145)
[2023-09-06] MEDS: Levothyroxine 100 MCG Tablet 200 MCG PO (05:33)
[2023-09-06] MEDS: Cefazolin 2 GM in 0.9% Normal Saline (100mL Bag) 100 ML IV ×3 (05:33→20:34)
[2023-09-06 05:45] VITALS: BP 119/50; PULSE 57; RESP 16; TEMP 36.1; O2SAT 94
[2023-09-06] MEDS: Ascorbic Acid 500 MG Tablet PO ×2 (07:45→20:34)
[2023-09-06] MEDS: Bumetanide 0.5 MG Tablet PO (07:46)
[2023-09-06] MEDS: Amiodarone 200 MG Tablet 100 MG PO (07:46)
[2023-09-06] MEDS: Fenofibrate 145 MG Tablet PO (07:47)
[2023-09-06] MEDS: Nystatin Powder 15gm Bottle 1 APPLIC TOPICAL ×2 (07:48→20:33)
[2023-09-06] MEDS: Menthol/Lanolin/Calamine/Znox 113 GM Tube 1 APPLIC TOPICAL ×2 (07:49→20:35)
[2023-09-06 08:07] LABS: Bedside Glucose 79 mg/dL (74-106)
[2023-09-06 08:33] VITALS: BP 148/58; PULSE 57; RESP 16; TEMP 36.3; O2SAT 98
[2023-09-06] MEDS: Insulin Lispro 100 UNIT/ML INSULN.PEN 10 UNIT SC (09:10)
[2023-09-06] MEDS: oxyCODONE 5 MG Tablet PO ×2 (09:13→20:46)
--- NOTE | 2023-09-06 10:37 | WOUNDNOTE ---
wound photo: left knee
[2023-09-06 11:28] VITALS: BP 157/59; PULSE 59; RESP 16; TEMP 36.4; O2SAT 100
[2023-09-06 11:43] LABS: Bedside Glucose 71 mg/dL (74-106)
[2023-09-06] MEDS: Insulin Lispro 100 UNIT/ML INSULN.PEN 20 UNIT SC (13:11)
[2023-09-06] MEDS: 0.9% Saline Lock 10 ML Syringe IV ×2 (13:43→20:34)
--- NOTE | 2023-09-06 15:13 | PCM.PN.HOSP ---
Reason for Visit Reason for Visit: Diagnoses Cellulitis of left lower limb (09/02/23) Contusion of left knee, initial encounter (09/02/23) Contusion of left lower leg, initial encounter (09/02/23) Encounter for other orthopedic aftercare (09/02/23) Subjective Subjective No acute events overnight. Patient seen at bedside this morning. Patient had just had wound VAC replaced by wound therapy on her left leg hematoma prior to my interview. Patient reports mild pain at wound site this morning but is otherwise feeling well. Continues to feel somewhat fatigued but improved from previous days. Otherwise denies any chest pain, shortness breath, abdominal pain, fevers or chills. No other acute concerns. Objective Data Objective Data Vital Signs: Vital Signs Temp Pulse Resp BP Pulse Ox O2 Del Method 97.5 F L 59 L 16 157/59 H 100 Room Air 09/06/23 11:28 09/06/23 11:28 09/06/23 11:28 09/06/23 11:28 09/06/23 11:28 09/06/23 13:51 Oxygen Delivery Method Room Air Weight: 87.231 kg Body Mass Index (BMI) 30.1 Intake & Output: Intake and Output for Last 24 Hours 09/04/23 09/05/23 09/06/23 23:59 23:59 23:59 Intake Total 2495.50 / 2495.50 1288.5 / 1288.5 670 / 670 Output Total 1550 / 1950 1900 / 2200 1100 / 1100 Balance 945.50 / 545.50 -611.5 / -911.5 -430 / -430 Lab / Micro Data 09/06/23 04:38 09/06/23 04:38 Labs: Laboratory Results - last 24 hr 09/05/23 16:34: POC Glucose 254 H 09/05/23 21:33: POC Glucose 207 H 09/06/23 04:38: WBC 5.3, RBC 2.59 L, Hgb 7.3 L, Hct 24.8 L, MCV 95.8, MCH 28.2, MCHC 29.4 L, RDW Std Deviation 55.9 H, RDW Coeff of Kevyn 16.1 H, Plt Count 386, MPV 9.7, Immature Gran % (Auto) 0.400, Neut % (Auto) 63.0, Lymph % (Auto) 18.5 L, [place] % (Auto) 12.5 H, Eos % (Auto) 4.5, Baso % (Auto) 1.1 H, Absolute Neuts (auto) 3.4, Absolute Lymphs (auto) 0.99, Nucleated RBC % 0, Sodium 139, Potassium 4.1, Chloride 109 H, Carbon Dioxide 25.0, Anion Gap 5, BUN 30 H, Creatinine 1.25 H, Estim Creat Clear Calc 39.56, Est GFR (MDRD) Af Amer 54 L, Est GFR (MDRD) Non-Af 45 L, BUN/Creatinine Ratio 24.0 H, Glucose 57 L, Calcium 8.1 L 09/06/23 07:44: POC Glucose 79 09/06/23 11:16: POC Glucose 71 L Micro: Microbiology 09/01/23 14:30 Blood Culture (Wb) - Anticubital Right Blood Culture - Final No growth in 5 days. 09/03/23 11:40 Wound - Knee Gram Stain - Final 09/03/23 11:40 Wound - Knee Wound Culture - Final Staphylococcus aureus 09/03/23 11:40 Wound - Knee Anaerobic Culture - Final No anaerobic bacteria isolated. 09/02/23 11:40 Wound - Leg, Left Gram Stain - Final 09/02/23 11:40 Wound - Leg, Left Wound Culture - Final Staphylococcus aureus 09/01/23 15:20 Blood Culture (Wb) - Anticubital Right Blood Culture - Preliminary No growth in 48 hours. Physical Exam Const alert, oriented x3 and no apparent distress Constitutional Narrative: Pleasant elderly female, obese, chronically ill-appearing, sitting comfortably in bed, conversing normally, no acute distress. General Appearance: cooperative and comfortable HEENT normocephalic, head/scalp atraumatic, hearing grossly normal bilaterally, nasal mucous membranes and turbinates normal and moist oral mucous membranes Eyes PERRL, EOMs intact bilaterally and conjunctivae normal Neck full ROM, no lymphadenopathy and supple Lymph Lymphatic: no lymphadenopathy noted Chest inspection of chest normal Resp normal respiratory effort, normal air movement, no use of accessory muscles and clear to auscultation bilaterally Cardio regular rate, regular rhythm, no murmurs and peripheral pulses 2+ throughout GI normal to inspection, nondistended, normoactive bowel sounds, soft to palpation, non-tender and non-distended Back/Spine normal ROM Extremity full ROM Extremity Narrative: Wound VAC in place on left leg wound, appears grossly normal. Skin no rashes or lesions noted Neuro moves all extremities and no focal motor deficits Psych mental status grossly normal Assessment & Plan Assessment/Plan (1) Hematoma of left lower leg: PLAN: Plan Patient is a 72-year-old female who presented to [facility] ED on 09/01/2023 with left lower leg pain and bruising after a fall at home. 1. Left lower leg hematoma with MSSA wound infection Lower extremity CT on admit showed hyperdense collection in subcutaneous tissues of medial/anterior lower leg compatible with hematoma. S/p evacuation of hematoma with wound VAC placement with orthopedics on 09/03. Wound culture shows 3+ MSSA. ? Orthopedics and wound care following. Wound VAC replaced on 09/06, wound appears to be healing appropriately. Continue IV cefazolin for now, ID consulted for home-going recommendations. 2. Acute on chronic anemia Presumed secondary to acute blood loss in setting of hematoma. Hemoglobin 6.7 on admit, baseline hemoglobin around 7-8. S/p 3 units of packed red blood cells to this point. ? Hemoglobin 7.3 on 09/06, stable from previous. Monitor CBC daily. 3. Debility Patient lives with her adult grandson in two-story home. Independent at baseline, able to ambulate stairs at home without issue. Acute debility secondary to left leg wound as noted above. ? PT/OT/case management following. Planning for home with home health care on discharge. Chronic medical conditions: ? CAD s/p CABG, chronic A-fib, pulmonary hypertension, hypertension, hyperlipidemia: Holding home aspirin, Plavix, Xarelto in setting of hematoma and severe anemia. Will need to determine if/when to restart these medications prior to discharge. Continue home amiodarone, atorvastatin, Bumex, fenofibrate. ? Type 2 diabetes mellitus: Home regimen of Toujeo 25 units at night, Humalog 18 units at breakfast, 25 units at lunch. Continue glargine 25 units at night, Humalog 10 units at breakfast, 20 units at lunch with sliding scale insulin, adjust as needed. ? Hypothyroidism: Continue home Synthroid. DVT prophylaxis: SCDs CODE STATUS: Full code, verified Expected disposition: Home with home health care, 1 to 2 days Total clinical time spent by myself addressing the patient's medical issues, reviewing all the data, and collaborating with patient's care team: 35 minutes. Charges/Coding Visit Charges Inpatient E&M: 16654 Subs Hosp L2
[2023-09-06 15:19] VITALS: BP 140/48; PULSE 57; RESP 16; TEMP 36.6; O2SAT 100
[2023-09-06 16:14] LABS: Bedside Glucose 109 mg/dL (74-106)
[2023-09-06] MEDS: Atorvastatin Calcium 40 MG Tablet PO (20:34)
[2023-09-06] MEDS: Acetaminophen 325 MG Tablet 650 MG PO (20:47)
[2023-09-06 21:23] VITALS: BP 150/60; PULSE 64; RESP 16; TEMP 36.1; O2SAT 100
[2023-09-06 21:23] LABS: Bedside Glucose 109 mg/dL (74-106)
[2023-09-07] MEDS: 0.9% Saline Lock 10 ML Syringe IV (05:25)
[2023-09-07] MEDS: Cefazolin 2 GM in 0.9% Normal Saline (100mL Bag) 100 ML IV ×2 (05:25→13:30)
[2023-09-07] MEDS: Levothyroxine 100 MCG Tablet 200 MCG PO (05:25)
[2023-09-07 05:32] VITALS: BP 128/53; PULSE 60; RESP 16; TEMP 36.1; O2SAT 99
[2023-09-07] MEDS: Insulin Lispro 100 UNIT/ML INSULN.PEN 10 UNIT SC (07:52)
[2023-09-07] MEDS: Insulin Lispro 100 UNIT/ML INSULN.PEN SC ×2 (07:52→11:22)
[2023-09-07] MEDS: Ascorbic Acid 500 MG Tablet PO (07:54)
[2023-09-07] MEDS: Fenofibrate 145 MG Tablet PO (07:54)
[2023-09-07] MEDS: Amiodarone 200 MG Tablet 100 MG PO (07:54)
[2023-09-07] MEDS: Bumetanide 0.5 MG Tablet PO (07:54)
[2023-09-07] MEDS: Nystatin Powder 15gm Bottle 1 APPLIC TOPICAL (07:55)
[2023-09-07] MEDS: Menthol/Lanolin/Calamine/Znox 113 GM Tube 1 APPLIC TOPICAL (07:55)
[2023-09-07 08:35] LABS: Bedside Glucose 167 mg/dL (74-106)
[2023-09-07 09:48] VITALS: BP 121/70; PULSE 60; RESP 18; TEMP 36.8; O2SAT 97
--- NOTE | 2023-09-07 10:45 | PCM.CONS.GEN ---
Assessment & Plan Assessment/Plan (1) Infected hematoma: PLAN: MSSA infected hematoma of L knee. No joint involvement seen. Taken to OR 09/03/[address] Gallegos for I&D. On cefazolin, will continue. MSSA was R to tetracycline. Plan will be for po keflex 500mg tid at discharge with stop date 09/13/23. Will follow, thank you HPI Consult Data Date of Consult: 09/07/23 HPI Narrative Reason for Consultation: infected hematoma HPI Narrative: MADAN CARRION, is a 72 F who presented 09/01 after fall about 10 days prior. Developed pain, swelling, redness of L knee with some blistering. Was seen in ED. Given some po abx (keflex/bactrim). Sx worsened, admitted here, taken to OR 09/03/[address] Gallegos for I&D. Now on cefazolin, surg cxs with mssa. Feeling better, no fever, no n/v/d. Wound vac in place, leg improving. Full ROS performed and neg except as noted above. [facility] Medical History Anemia Anemia of chronic disease Anticoagulant long-term use Anxiety and depression Arthritis Atrial fibrillation CAD (coronary artery disease) CPAP (continuous positive airway pressure) dependence Diabetes mellitus DM type 2, goal HbA1c < 7% DVT (deep venous thrombosis) Failure of outpatient treatment Hematoma of right knee region History of stress incontinence Hx of necrotizing fasciitis Hypertension Hypothyroidism Insulin dependent diabetes mellitus Leg swelling Open wound of knee Open wound of right knee with complication PAF (paroxysmal atrial fibrillation) Restless legs Stage 3b chronic kidney disease (CKD) Traumatic hematoma of right knee Ulcer of right knee Wears dentures Home Medications atorvastatin 40 mg tablet 40 mg PO QHS Cholesterol 09/07/14 [History Last Taken 04/06/23] fenofibric acid (choline) 135 mg capsule,delayed release (Trilipix) 135 mg PO DAILY Cholesterol 09/07/14 [History Last Taken 04/06/23] levothyroxine 175 mcg tablet 200 mcg PO DAILY Thyroid 04/12/20 [History Last Taken 04/06/23] bumetanide 0.5 mg tablet 0.5 mg PO DAILY BP 02/17/21 [History Last Taken 04/06/23] insulin glargine U-300 conc 300 unit/mL (1.5 mL) subcutaneous pen (Toujeo SoloStar U-300 Insulin) 25 unit subcut QHS Diabetes 02/17/21 [History Last Taken 04/06/23] insulin lispro 100 unit/mL subcutaneous solution (Humalog U-100 Insulin) 18 unit subcut BREAKFAST Diabetes 02/17/21 [History Last Taken 04/06/23] acetaminophen 500 mg tablet 1,000 mg (2 x 500 mg) PO Q6H PRN PRN Pain Score 1-5 #0 tabs 05/14/21 [Rx Last Taken 04/06/23] insulin lispro 100 unit/mL subcutaneous pen 25 unit subcut LUNCH diabetes 05/30/21 [History Last Taken 04/06/23] amiodarone 200 mg tablet 100 mg PO DAILY hrt 11/12/21 [History Last Taken 04/06/23] lisinopril 10 mg tablet 20 mg PO DAILY bp 04/11/23 [History Last Taken Unknown] ofloxacin 0.3 % eye drops 1 drp ophthalmic (eye) Q6H eye 04/11/23 [History Last Taken Unknown] prednisolone acetate 1 % eye drops,suspension 1 drp ophthalmic (eye) BID eye 04/11/23 [History Last Taken Unknown] sodium chloride 5 % eye drops 1 drp ophthalmic (eye) BID eye 04/11/23 [History Last Taken Unknown] ascorbic acid (vitamin C) 500 mg tablet 500 mg PO BID 30 days #60 tabs 04/21/23 [Rx Last Taken Unknown] ferrous sulfate 325 mg (65 mg iron) tablet (FeroSul) 325 mg PO DAILY@1200 #30 tabs 04/21/23 [Rx Last Taken Unknown] rivaroxaban 10 mg tablet (Xarelto) 10 mg PO DINNER 30 days #30 tabs 04/21/23 [Rx Last Taken Unknown] aspirin 81 mg tablet,delayed release (Adult Aspirin Regimen) 81 mg PO DAILY 05/20/23 [History Last Taken Unknown] clopidogrel 75 mg tablet 75 mg PO DAILY 09/01/23 [History Last Taken Unknown] Allergy/AdvReac Type Severity Reaction Status Date / Time hydralazine HCl Allergy Other Verified 09/01/23 20:14 [From Apresoline] ondansetron [From Zofran] AdvReac Nausea Verified 09/01/23 20:14 Family History Mother Diabetes Heart disease Hypertension Father Diabetes Heart disease Hypertension Surgical History (Updated 09/01/23 @ 20:17 by Tara Zhang) History of cardiac catheterization History of cardiac radiofrequency ablation History of hip replacement History of quadruple bypass History of total left hip replacement Hx of CABG Hx of cholecystectomy Hx of colonoscopy Hx of tubal ligation Stented coronary artery Social History household members: none housing: house number of children: 3 Smoking Status: Former smoker alcohol intake: never substance use type: does not use Physical Exam Const alert, oriented x3 and no apparent distress General Appearance: cooperative HEENT normocephalic and head/scalp atraumatic Eyes PERRL and EOMs intact bilaterally Neck supple and No nodes Resp normal air movement and clear to auscultation bilaterally Cardio regular rate and regular rhythm GI soft to palpation, non-tender and non-distended Extremity General Extremity: edema Skin Skin Narrative: L knee wound vac in place, mild surrounding redness Neuro CN's II-XII intact bilaterally Lab / Micro Data Attestation: I reviewed the patient's lab results. 09/06/23 04:38 09/06/23 04:38 Labs: Laboratory Results - last 24 hr 09/06/23 11:16: POC Glucose 71 L 09/06/23 15:50: POC Glucose 109 H 09/06/23 20:49: POC Glucose 109 H 09/07/23 07:43: POC Glucose 167 H Micro: Microbiology 09/01/23 15:20 Blood Culture (Wb) - Anticubital Right Blood Culture - Final No growth in 5 days. 09/01/23 14:30 Blood Culture (Wb) - Anticubital Right Blood Culture - Final No growth in 5 days. 09/03/23 11:40 Wound - Knee Gram Stain - Final 09/03/23 11:40 Wound - Knee Wound Culture - Final Staphylococcus aureus 09/03/23 11:40 Wound - Knee Anaerobic Culture - Final No anaerobic bacteria isolated.
[2023-09-07] MEDS: Insulin Lispro 100 UNIT/ML INSULN.PEN 20 UNIT SC (11:23)
[2023-09-07 11:45] LABS: Bedside Glucose 199 mg/dL (74-106)
--- NOTE | 2023-09-07 13:37 | CASEMGMT ---
Addendum entered by Dee Negro 09/07/23 15:02: TC to [facility], spoke with Jesus Alberto, the cost of the patient's xarelto is $434.61. FLORESITA PLATA into pt room, pt states she knows this med is expensive as this is not new to her. She states she has not used a savings card in the past as they state she is not eligible. Provided pt with xarelto savings card. Pt denies further needs. Original Note: FLORESITA PLATA into pt room, pt wants [facility] to resume care and denies need for list of other agencies. Pt is interested in PT in the home as well. She denies need for any other homegoing needs. Spoke with wound nurse, pt vac is still pending. Notified [facility] that pt will plan to dc today pending vac approval.
--- NOTE | 2023-09-07 13:45 | DCINST_ITS ---
Discharge Instructions Diet Discharge Diet: Carb Control Diet Activity Discharge Activity: No Restrictions Weight Bearing Status: Full weight bearing Keep extremity elevated above heart level: Left Leg Follow Up Care Please Follow Up With: Maggi Chicas, When: As needed Test Results: Test results from this visit will be discussed in further detail at your follow- up appointment, if applicable. Pending Tests Upon Discharge: None Discharge Plan Admission Admit Date/Time: 09/02/23 16:40 Primary Reason for Your Visit: Left leg hematoma Attending Provider: Titus Nunn Primary Care Provider: Maggi Chicas Consulting Providers: Ant Norton; Tyrese Gallegos; Donny Feng; Elroy Judd Instructions Additional Instructions / Restrictions: Take Keflex 3 times daily for 7 more days to complete full antibiotic course for your infected left leg hematoma. Please take Xarelto 15 mg daily and Plavix 75 mg daily going forward for your coronary artery disease with recent stent placement and atrial fibrillation. See medication list below for any other changes. Follow-up with your primary care doctor as needed. Discharge Orders/Prescriptions Prescriptions: New cephalexin 500 mg capsule 500 mg PO TID 7 Days Qty: 21 0RF Xarelto 15 mg tablet 15 mg PO DAILY Qty: 90 0RF Rx Instructions: must administer with evening meal Continued atorvastatin 40 MG tablet 40 mg PO QHS Patient Comments: CHOLESTEROL LOWERING fenofibric acid (choline) [Trilipix] 135 MG capsule,delayed release(DR/EC) 135 mg PO DAILY Patient Comments: cholesterol levothyroxine 175 MCG tablet 200 mcg PO DAILY bumetanide 0.5 mg Tablet 0.5 mg PO DAILY insulin lispro [Humalog U-100 Insulin] 100 unit/mL Solution 18 unit SUBCUT BREAKFAST [place] SoloStar U-300 Insulin 300 unit/mL (1.5 mL) Insulin Pen 25 unit SUBCUT QHS acetaminophen 500 mg Tablet 1,000 mg PO Q6H PRN PRN (Reason: Pain Score 1-5) Qty: 0 0RF insulin lispro 100 unit/mL Insulin Pen 25 unit SUBCUT LUNCH amiodarone 200 mg tablet 100 mg PO DAILY Patient Comments: TAKE 1 TABLET DAILY lisinopril 10 mg tablet 20 mg PO DAILY Patient Comments: TAKE 1 TABLET DAILY prednisolone acetate 1 % drops,suspension 1 drp ophthalmic (eye) BID Patient Comments: Instill 1 drop in right eye(s) twice daily sodium chloride 5 % drops 1 drp ophthalmic (eye) BID Patient Comments: instill 1 (ONE) DROP IN THE RIGHT EYE TWICE DAILY ofloxacin 0.3 % drops 1 drp ophthalmic (eye) Q6H Patient Comments: APPLY 1 (ONE) DROP IN OPERATIVE EYE FOUR TIMES DAILY, START AFTER SURGERY ferrous sulfate [FeroSul] 325 mg (65 mg iron) Tablet 325 mg PO DAILY@1200 Qty: 30 2RF ascorbic acid (vitamin C) 500 mg tablet 500 mg PO BID 30 Days Qty: 60 2RF clopidogrel 75 mg tablet 75 mg PO DAILY Patient Comments: TAKE 1 TABLET BY MOUTH EVERY DAY Discontinued Xarelto 10 mg Tablet 10 mg PO DINNER 30 Days Qty: 30 0RF Rx Instructions: Discontinue if platelet count drops less than 50,000 or hemoglobin less than 7.0 g% aspirin [Adult Aspirin Regimen] 81 mg tablet,delayed release (DR/EC) 81 mg PO DAILY Referrals / Follow Up: Maggi Chicas DO [Primary Care Provider] - Disposition Disposition (needs filled in before D/C Order can be placed): Home Health Service
--- NOTE | 2023-09-07 14:01 | DS.PCM_ITS ---
Providers Date of Admission: 09/02/23 Date of Discharge: 09/07/23 Primary Care Physician: Dr. Maggi Chicas DO Consultations 09/01/23 20:05 Consult: Onc/Wound/spring assembler Routine Comment: Reason for Consult:: Left knee skin tear 09/02/23 11:37 Consult: Orthopedics Routine Consulting Provider: Tyrese Gallegos Reason for Consult: RIGHT infected knee after fall with hematoma EMERGENT Consult: No MD Notified: Yes Date Notified: 09/02/23 Time Notified: 11:37 Method of Notification: Text 09/03/23 12:23 Consult: Onc/Wound/spring assembler Routine Comment: 09/06/23 14:51 Consult: Infectious Disease Routine Consulting Provider: Elroy Judd Reason for Consult: infected lower leg hematoma, wound cx w/ MSSA, need IV abx/course length? EMERGENT Consult: No MD Notified: Yes Date Notified: 09/06/23 Time Notified: 14:55 Method of Notification: Text Reason For Visit: LEFT KNEE HEMATOMA Diagnosis Discharge Diagnosis (1) Infected hematoma: Status: Acute Code(s): T14.8XXA - Other injury of unspecified body region, initial encounter; L08.9 - Local infection of the skin and subcutaneous tissue, unspecified Medications at Discharge Home Medications atorvastatin 40 mg tablet 40 mg PO QHS Cholesterol 09/07/14 fenofibric acid (choline) 135 mg capsule,delayed release (Trilipix) 135 mg PO DAILY Cholesterol 09/07/14 levothyroxine 175 mcg tablet 200 mcg PO DAILY Thyroid 04/12/20 bumetanide 0.5 mg tablet 0.5 mg PO DAILY BP 02/17/21 insulin glargine U-300 conc 300 unit/mL (1.5 mL) subcutaneous pen (Toujeo SoloStar U-300 Insulin) 25 unit subcut QHS Diabetes 02/17/21 insulin lispro 100 unit/mL subcutaneous solution (Humalog U-100 Insulin) 18 unit subcut BREAKFAST Diabetes 02/17/21 acetaminophen 500 mg tablet 1,000 mg (2 x 500 mg) PO Q6H PRN PRN Pain Score 1-5 #0 tabs 05/14/21 insulin lispro 100 unit/mL subcutaneous pen 25 unit subcut LUNCH diabetes 05/30/21 amiodarone 200 mg tablet 100 mg PO DAILY hrt 11/12/21 lisinopril 10 mg tablet 20 mg PO DAILY bp 04/11/23 ofloxacin 0.3 % eye drops 1 drp ophthalmic (eye) Q6H eye 04/11/23 prednisolone acetate 1 % eye drops,suspension 1 drp ophthalmic (eye) BID eye 04/11/23 sodium chloride 5 % eye drops 1 drp ophthalmic (eye) BID eye 04/11/23 ascorbic acid (vitamin C) 500 mg tablet 500 mg PO BID 30 days #60 tabs 04/21/23 ferrous sulfate 325 mg (65 mg iron) tablet (FeroSul) 325 mg PO DAILY@1200 #30 tabs 04/21/23 clopidogrel 75 mg tablet 75 mg PO DAILY 09/01/23 cephalexin 500 mg capsule 500 mg PO TID 7 days #21 caps 09/07/23 rivaroxaban 15 mg tablet (Xarelto) 15 mg PO DAILY #90 tabs 09/07/23 Hospital Course Operations None Procedures Wound vac placement (Evacuation of left lower leg hematoma) and - (Hip/pelvix x- ray x 2, LE CT scan) Summary of Care Provided Minutes Spent on Discharge: 35 Hospital Course: Patient is a 72-year-old female who presented to [facility] ED on 09/01/2023 with left lower leg pain and bruising after a fall at home. Hospital course as noted below. Ultimately stable for discharge home with home health care on 09/07. Left lower leg hematoma with MSSA wound infection: Lower extremity CT on admit showed hyperdense collection in subcutaneous tissues of medial/anterior lower leg compatible with hematoma. S/p evacuation of hematoma with wound VAC placement with orthopedics on 09/03. Wound culture shows 3+ MSSA. ? Orthopedics, infectious disease and wound care followed. Wound VAC replaced on 09/06, wound appeared to be healing appropriately. Discharged on po Keflex 500 mg TID with stop date 09/13. Outpatient follow up with Ortho as needed. Ortho placed consult to wound center on discharge. Per Ortho, continue elevate LLE, ice PRN, weight bearing as tolerated, encouraged knee ROM and ambulation. Acute on chronic anemia: Presumed secondary to acute blood loss in setting of hematoma while on Plavix and Xarelto. Hemoglobin 6.7 on admit, baseline hemoglobin around 7-8. S/p 3 units of packed red blood cells during admission. ? Hemoglobin stable at 7.3 on discharge. Restarted home Plavix and Xarelto on discharge. Recommend repeat CBC in 5-7 days to ensure continued stability of hemoglobin. Debility: Patient lives with her adult grandson in two-story home. Independent at baseline, able to ambulate stairs at home without issue. Acute debility secondary to left leg wound as noted above. ? PT/OT/case management followed. Stable for home with [facility] on discharge. CAD s/p stenting in 05/2023: KARMA x 2 placed at [facility] Per cardiology, plan was for triple therapy for 1 month followed by Plavix 75 mg daily and Xarelto 15 mg daily going forward. Unclear if patient was taking this regimen appropriately prior to admission. - Discharged on Plavix and Xarelto. Outpatient cardiology follow up as previously scheduled. Chronic medical conditions managed during admission: ? Chronic A-fib, pulmonary hypertension, hypertension, hyperlipidemia ? Type 2 diabetes mellitus ? Hypothyroidism Total clinical time spent by myself addressing the patient's discharge needs: 35 minutes. Physical Exam Const alert, oriented x3 and no apparent distress Constitutional Narrative: Pleasant elderly female, obese, chronically ill-appearing, sitting comfortably in bed, conversing normally, no acute distress. General Appearance: cooperative and comfortable HEENT normocephalic, head/scalp atraumatic, hearing grossly normal bilaterally, nasal mucous membranes and turbinates normal and moist oral mucous membranes Eyes PERRL, EOMs intact bilaterally and conjunctivae normal Neck full ROM, no lymphadenopathy and supple Lymph Lymphatic: no lymphadenopathy noted Chest inspection of chest normal Resp normal respiratory effort, normal air movement, no use of accessory muscles and clear to auscultation bilaterally Cardio regular rate, regular rhythm, no murmurs and peripheral pulses 2+ throughout GI normal to inspection, nondistended, normoactive bowel sounds, soft to palpation, non-tender and non-distended Back/Spine normal ROM Extremity full ROM Extremity Narrative: Wound VAC in place on left leg wound, appears grossly normal. Skin no rashes or lesions noted Neuro moves all extremities and no focal motor deficits Psych mental status grossly normal Weight / BMI Weight Weight: 87.231 kg Body Mass Index (BMI) 30.1 ABG / Lab / Microbiology Data 09/06/23 04:38 09/06/23 04:38 Laboratory: Laboratory Results - last 24 hr 09/06/23 15:50: POC Glucose 109 H 09/06/23 20:49: POC Glucose 109 H 09/07/23 07:43: POC Glucose 167 H 09/07/23 11:21: POC Glucose 199 H Microbiology: Microbiology 09/01/23 15:20 Blood Culture (Wb) - Anticubital Right Blood Culture - Final No growth in 5 days. 09/01/23 14:30 Blood Culture (Wb) - Anticubital Right Blood Culture - Final No growth in 5 days. 09/03/23 11:40 Wound - Knee Gram Stain - Final 09/03/23 11:40 Wound - Knee Wound Culture - Final Staphylococcus aureus 09/03/23 11:40 Wound - Knee Anaerobic Culture - Final No anaerobic bacteria isolated. 09/02/23 11:40 Wound - Leg, Left Gram Stain - Final 09/02/23 11:40 Wound - Leg, Left Wound Culture - Final Staphylococcus aureus D/C Instructions Discharge Diet: Carb Control Diet Weight Bearing Status: Full weight bearing Keep extremity elevated above heart level: Left Leg Pending Tests Upon Discharge: None Please Follow Up With: Maggi Chicas, DO When: As needed Meaningful Use Info Meaningful Use Diagnoses (Choose all that apply): None applicable Discharge Plan Admission Admit Date/Time: 09/02/23 16:40 Primary Reason for Your Visit: Left leg hematoma Attending Provider: Titus Nunn Primary Care Provider: Maggi Chicas Consulting Providers: Ant Norton; Tyrese Gallegos; Donny Feng; Elroy Judd Instructions Additional Instructions / Restrictions: Take Keflex 3 times daily for 7 more days to complete full antibiotic course for your infected left leg hematoma. Please take Xarelto 15 mg daily and Plavix 75 mg daily going forward for your coronary artery disease with recent stent placement and atrial fibrillation. See medication list below for any other changes. Follow-up with your primary care doctor as needed. Discharge Orders/Prescriptions Prescriptions: New cephalexin 500 mg capsule 500 mg PO TID 7 Days Qty: 21 0RF Xarelto 15 mg tablet 15 mg PO DAILY Qty: 90 0RF Rx Instructions: must administer with evening meal Continued atorvastatin 40 MG tablet 40 mg PO QHS Patient Comments: CHOLESTEROL LOWERING fenofibric acid (choline) [Trilipix] 135 MG capsule,delayed release(DR/EC) 135 mg PO DAILY Patient Comments: cholesterol levothyroxine 175 MCG tablet 200 mcg PO DAILY bumetanide 0.5 mg Tablet 0.5 mg PO DAILY insulin lispro [Humalog U-100 Insulin] 100 unit/mL Solution 18 unit SUBCUT BREAKFAST [place] BrowningoStar U-300 Insulin 300 unit/mL (1.5 mL) Insulin Pen 25 unit SUBCUT QHS acetaminophen 500 mg Tablet 1,000 mg PO Q6H PRN PRN (Reason: Pain Score 1-5) Qty: 0 0RF insulin lispro 100 unit/mL Insulin Pen 25 unit SUBCUT LUNCH amiodarone 200 mg tablet 100 mg PO DAILY Patient Comments: TAKE 1 TABLET DAILY lisinopril 10 mg tablet 20 mg PO DAILY Patient Comments: TAKE 1 TABLET DAILY prednisolone acetate 1 % drops,suspension 1 drp ophthalmic (eye) BID Patient Comments: Instill 1 drop in right eye(s) twice daily sodium chloride 5 % drops 1 drp ophthalmic (eye) BID Patient Comments: instill 1 (ONE) DROP IN THE RIGHT EYE TWICE DAILY ofloxacin 0.3 % drops 1 drp ophthalmic (eye) Q6H Patient Comments: APPLY 1 (ONE) DROP IN OPERATIVE EYE FOUR TIMES DAILY, START AFTER SURGERY ferrous sulfate [FeroSul] 325 mg (65 mg iron) Tablet 325 mg PO DAILY@1200 Qty: 30 2RF ascorbic acid (vitamin C) 500 mg tablet 500 mg PO BID 30 Days Qty: 60 2RF clopidogrel 75 mg tablet 75 mg PO DAILY Patient Comments: TAKE 1 TABLET BY MOUTH EVERY DAY Discontinued Xarelto 10 mg Tablet 10 mg PO DINNER 30 Days Qty: 30 0RF Rx Instructions: Discontinue if platelet count drops less than 50,000 or hemoglobin less than 7.0 g% aspirin [Adult Aspirin Regimen] 81 mg tablet,delayed release (DR/EC) 81 mg PO DAILY Referrals / Follow Up: Maggi Chicas DO [Primary Care Provider] - Disposition Disposition (needs filled in before D/C Order can be placed): Home Health Service Charges/Coding Visit Charges Inpatient E&M: 76237 Disch Hosp >30min
[2023-09-07 14:06] VITALS: BP 133/82; PULSE 65; RESP 18; TEMP 36.2; O2SAT 98
--- NOTE | 2023-09-07 15:34 | PHA.DC_ITS ---
Pharmacy [facility] has performed discharge medication reconciliation and counseling for this patient. 1. CEPHALEXIN 500MG PO TID X 7 DAYS The patient's discharge medication list was reviewed for discrepancies and discrepancies were resolved. The patient was counseled on the following discharge medications and changes in medications for homegoing were reviewed. The Reason for Use, instructions for use, and potential side effects were reviewed for all new medications. The patient's questions regarding all of their medications were answered. The patient was able to verbally demonstrate an understanding of their discharge medications. Medications at Discharge Home Medications atorvastatin 40 mg tablet 40 mg PO QHS Cholesterol 09/07/14 fenofibric acid (choline) 135 mg capsule,delayed release (Trilipix) 135 mg PO DAILY Cholesterol 09/07/14 levothyroxine 175 mcg tablet 200 mcg PO DAILY Thyroid 04/12/20 bumetanide 0.5 mg tablet 0.5 mg PO DAILY BP 02/17/21 insulin glargine U-300 conc 300 unit/mL (1.5 mL) subcutaneous pen (Toujeo SoloStar U-300 Insulin) 25 unit subcut QHS Diabetes 02/17/21 insulin lispro 100 unit/mL subcutaneous solution (Humalog U-100 Insulin) 18 unit subcut BREAKFAST Diabetes 02/17/21 acetaminophen 500 mg tablet 1,000 mg (2 x 500 mg) PO Q6H PRN PRN Pain Score 1-5 #0 tabs 05/14/21 insulin lispro 100 unit/mL subcutaneous pen 25 unit subcut LUNCH diabetes 05/30/21 amiodarone 200 mg tablet 100 mg PO DAILY hrt 11/12/21 lisinopril 10 mg tablet 20 mg PO DAILY bp 04/11/23 ofloxacin 0.3 % eye drops 1 drp ophthalmic (eye) Q6H eye 04/11/23 prednisolone acetate 1 % eye drops,suspension 1 drp ophthalmic (eye) BID eye 04/11/23 sodium chloride 5 % eye drops 1 drp ophthalmic (eye) BID eye 04/11/23 ascorbic acid (vitamin C) 500 mg tablet 500 mg PO BID 30 days #60 tabs 04/21/23 ferrous sulfate 325 mg (65 mg iron) tablet (FeroSul) 325 mg PO DAILY@1200 #30 tabs 04/21/23 clopidogrel 75 mg tablet 75 mg PO DAILY 09/01/23 cephalexin 500 mg capsule 500 mg PO TID 7 days #21 caps 09/07/23 rivaroxaban 15 mg tablet (Xarelto) 15 mg PO DAILY #90 tabs 09/07/23
[2023-09-07 16:17] LABS: Bedside Glucose 92 mg/dL (74-106)
[2023-09-07] MEDS: oxyCODONE 5 MG Tablet PO (16:18)
== END 2023-09-07 16:34 | disposition home health service (06) | DRG 580 ==
LOC: ED 15:02 → PCU 19:04 → MS3 09-05 12:42
PROVIDERS: Anesthesiology; Internal Medicine; Orthopaedic Surgery; Admitting Provider Family Medicine; Emergency Provider Emergency Medicine; Referring Provider Emergency Medicine; Visit Provider Hospitalist
PROC: 0JCP0ZZ Extirpation of Matter from Left Lower Leg Subcutaneous Tissue and Fascia, Open Approach (ICD-10-PCS; principal; 2023-09-03 10:15)
DX: S80.02XA Contusion of left knee, initial encounter (principal); Z68.42 Body mass index [BMI] 45.0-49.9, adult; D62 Acute posthemorrhagic anemia; L03.116 Cellulitis of left lower limb; I27.20 Pulmonary hypertension, unspecified; D63.8 Anemia in other chronic diseases classified elsewhere; E11.22 Type 2 diabetes mellitus with diabetic chronic kidney disease; N18.32 Chronic kidney disease, stage 3b; I48.0 Paroxysmal atrial fibrillation; E66.01 Morbid (severe) obesity due to excess calories; Z79.4 Long term (current) use of insulin; E03.9 Hypothyroidism, unspecified; I12.9 Hypertensive chronic kidney disease with stage 1 through stage 4 chronic kidney disease, or unspecified chronic kidney disease; S20.229A Contusion of unspecified back wall of thorax, initial encounter; I25.10 Atherosclerotic heart disease of native coronary artery without angina pectoris; I87.8 Other specified disorders of veins; E78.5 Hyperlipidemia, unspecified; W19.XXXA Unspecified fall, initial encounter; B95.61 Methicillin susceptible Staphylococcus aureus infection as the cause of diseases classified elsewhere; Z87.891 Personal history of nicotine dependence; Z79.01 Long term (current) use of anticoagulants; Z79.02 Long term (current) use of antithrombotics/antiplatelets; Z79.890 Hormone replacement therapy; Z95.5 Presence of coronary angioplasty implant and graft; Z79.899 Other long term (current) drug therapy
CPT/HCPCS: 36415; 73502; 73701; 80048; 80053; 82550; 82962; 83036; 83605; 84100; 84443; 85014; 85018; 85025; 85610; 85730; 86850; 86870; 86900; 86901; 86902; 86920; 86922; 87040; 87070; 87075; 87077; 87186; 87205; 87640; 93005; 94668; 97110; 97116; 97162; 97166; 97530; 97535; 99252; 99284; J2020; J7030; J7040; J7050; P9016; Q9967; A4216; G0463; J0696; J2916; J3490

== ENCOUNTER 2023-09-13 14:23 | Outpatient (RCR) | payer MEDICARE, SELFPAY ==
[2023-08-27 00:10] VITALS: BP 153/45; PULSE 67; RESP 18; TEMP 35.9; BMI 46.6
[2023-09-13 14:28] VITALS: BP 192/69; PULSE 69; RESP 20; TEMP 36.3; BMI 46.6
--- NOTE | 2023-09-13 16:48 | PCM.WC.PN ---
History of Present Illness Date of Service: 09/13/23 Chief Complaint: Nonhealing hematoma ulcer right knee History of Wound: The patient is a 72 y/o woman with a history of diabetes, was admitted to the hospital with increasing redness and swelling and pain in her right knee after a mechanical fall. She is on anticoagulation and with the fall, she sustained a hematoma. When she initially came to the ED, she was given a script for Keflex and Bactrim. When she failed outpatient therapy with po antibiotics, she was admitted the next time she came to the ED. She was started on Vancomycin and Rocephin. Her WBC was 5.6. Hgb was 8.6. Her HgbA1c was 6.9 on 04/13/23. Dr. Gallegos from Orthopedics was consulted for this hematoma right knee. He proceeded with an I&D and evacuation of the hematoma. Wound care was started and a few days later he took her back to surgery to attempt closure of the wound. Her skin was thin and not very strong. He had difficulty with closure because the skin was tearing as there was too much tension from the swelling and from her obesity. So a VAC was applied and he consulted me to evaluate this patient for chronic wound care and for surgical options for wound closure. Patient fell on 09/01/23 and developed a LEFT proximal leg hematoma. Had surgery on 09/03/23 for Evacuation of hematoma with wound VAC placement by Dr. Lockwood. Wound VAC placed on 09/06/23. Operative culture positive for MSSA. Treated with Keflex that she completed 09/13/23. Acute on chronic anemia that she required transfusion of 3 units of PRBCs. Hgb on discharge 7.3. Venous studies done on 08/13/23 - Sapheno-femoral junctions are bilaterally incompetent . Segmental valvular incompetence is noted within the great saphenous veins bilaterally. The right small saphenous vein is patent and incompetent. The accessory saphenous vein at the right knee is incompetent. Two accessory saphenous veins in the left mid-thigh are incompetent. An accessory saphenous vein at the left knee is incompetent. An incompetent bingo worker vein is noted in the right calf, located 5 centimeters proximal to the right medial malleolus. Pulsatile flow is noted in the deep venous system bilaterally, which may be indicative of elevated central venous pressure (i.e. congestive heart failure, pulmonary hypertension, etc.). Clinical correlation is advised. Arterial studies obtained 08/13/23 - Biphasic and triphasic Doppler waveforms are noted at ankle level on the right. Triphasic Doppler waveforms are noted at ankle level on the left. Pulse-volume recordings appear diminished at digital level on the left, but satisfactory at all other levels bilaterally. Resting ankle-brachial indices are normal bilaterally. The right digital-brachial index is mildly diminished. The left digital-brachial index is low-normal. Arterial flow appears normal at ankle level bilaterally. 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 Right JEFFREY - 1.00, left JEFFREY - 1.18. Today she denies fever. Her appetite is ok. Progress of Wound: Right knee ulcer has a dry scab that is stable and acting as a biologic cover. New left knee wound is pink. She is tolerating the wound VAC well. She has excoriation at 10-11 o'clock on the miroslava wound from the wound VAC foam getting onto her skin. She is pale today. Will order a recheck on her Hgb for home health to draw on Wednesday. Objective Data Objective Data Vital Signs: Vital Signs Temp Pulse Resp BP O2 Del Method 97.3 F L 69 20 H 192/69 H Room Air 09/13/23 14:28 09/13/23 14:28 09/13/23 14:28 09/13/23 14:28 09/13/23 14:28 Oxygen Delivery Method Room Air Weight: 307 lb Body Mass Index (BMI) 46.6 Charges/Coding Procedures Integumentary 111xxx-113xx: 55678 Zita subq tissue 20 sq cm/< Add On Codes: 50643 Zita subq tissue add-on (x2) Physical Exam Const alert and oriented x3 General Appearance: cooperative HEENT normocephalic Eyes General Eye: normal appearance of both eyes Resp normal respiratory effort and clear to auscultation bilaterally Effort and Inspection: able to speak in complete sentences Cardio regular rate and regular rhythm Extremity normal capillary refill Skin Skin Narrative: Skin color is pale. Wound Narrative: Right knee has dry, stable scabbing present. Left knee wound is beefy pink. There is some excoriation present of miroslava wound at 10-11 o'clock where wound VAC foam got placed on her skin. Neuro CN's II-XII intact bilaterally Psych affect normal Appearance: grossly normal Debridement Note Debridement Note No debridement was completed: No debridement was completed today Post-Debridement Measurements and Additional Note: Post-Debridement Measurements/Treatment - Nurse 1 - General Ulcer Assessment Start: 09/13/23 14:26 Freq: Status: Active Protocol: USHA Activity Type Activity Date Activity User E-sign Co-sign Detail Recorded Client Recorded Date Recorded By Document 09/13/23 14:28 KW [employer] 09/13/23 14:43 KW 09/13/23 14:28 WC - Today's Visit Information Type of service Follow-up Visit (Physician/WIRER PASSENGER CAR ) Arrival Mode Ambulatory, Walker Accompanied by daughter Patient Identification Verified (Name & Yes ) Finger Stick Blood Sugar(mg/dl) (if 184 indicated): Blood Sugar Stated by Patient Height and Weight Body Mass Index (BMI) 46.6 BMI Classification Obese Vital Signs Temperature (97.8 F-99.1 F) 97.3 F L Temperature Source Oral Pulse Rate (60-100) 69 Pulse Location Monitor Respiratory Rate (12-18) 20 H Respiratory rate source Observation Oxygen Delivery Method Room Air Blood Pressure (90/60-120/80) 192/69 H Blood Pressure Mean (mm Hg) 110 Source Monitor Position Sitting Blood Pressure Location Left Arm History Since Last Visit- (Skip if this is Patient's initial visit) Have you changed medications since your Yes last visit? Any new allergies or adverse reactions No Had a fall/change in ADL's that may No increase risk of falls Signs or symptoms of abuse and/or No neglect since last visit Have you been in the hospital since your No last visit? Has dressing in place as prescribed Yes Has compression in place as prescribed Yes Has offloadiing in place as prescribed No Experienced any changes in pain level or No management Left Footwear Regular Shoe Right Footwear Regular Shoe Pain Scale: 0-10 Numeric Is Patient Pain Free? Yes - Nurse 1 - General Ulcer Measurement Start: 09/13/23 14:26 Freq: Status: Active Protocol: Activity Type Activity Date Activity User E-sign Co-sign Detail Recorded Client Recorded Date Recorded By Document 09/13/23 14:28 KW Desktop 09/13/23 14:43 KW 09/13/23 14:28 Wound Center Nurse 1 #3- R LAT KNEE -Current Size (cm) - Length 8.9 -Current Size (cm) - Width 6.4 -Current Size (cm) - Depth 0.5 -Total Square Cm 56.96 -Exudate Amt Medium -Exudate Type Serosanguineous -Wound Margin Distinct, Outline Attached -Granulation Amt Large (67-100%) -Granulation Quality Red -Texture (Miroslava-wound Skin Appearance) Assessed,Rash -Moisture (Miroslava-wound Skin Appearance) Assessed, Weeping -Color (Miroslava-wound Skin Appearance) Assessed, Erythema -Temperature (Miroslava-wound Skin No Abnormality Appearance) (Pt Warm) -Ulcer Cleansing Soap and Water -Foul Odor after Cleansing No -Anesthetic Used 4% Lidocaine Solution 2-right medial knee ulcer cluster -Current Size (cm) - Length 8.9 -Current Size (cm) - Width 6.4 -Current Size (cm) - Depth 0.5 -Total Square Cm 56.96 -Exudate Amt Medium -Exudate Type Serosanguineous -Wound Margin Distinct, Outline Attached -Granulation Amt Large (67-100%) -Granulation Quality Red -Texture (Miroslava-wound Skin Appearance) Assessed,Rash -Moisture (Miroslava-wound Skin Appearance) Assessed, Weeping -Color (Miroslava-wound Skin Appearance) Assessed, Erythema -Temperature (Miroslava-wound Skin No Abnormality Appearance) (Pt Warm) -Ulcer Cleansing Soap and Water -Foul Odor after Cleansing No -Anesthetic Used 4% Lidocaine Solution WC - Nurse 2 - General Ulcer CM Notes Start: 09/13/23 14:26 Freq: Status: Active Protocol: Activity Type Activity Date Activity User E-sign Co-sign Detail Recorded Client Recorded Date Recorded By Document 09/13/23 15:07 Laptop 09/13/23 15:13 09/13/23 15:07 Wound Center Nurse 2 -Correct Patient No -Correct Side, Site, Position No -Correct Procedure No -Procedure Performed No -Wound/Ulcer Outcome Not Healed 4-left medial leg -Correct Patient No -Correct Side, Site, Position No -Correct Procedure No -Procedure Performed No -Wound/Ulcer Outcome Not Healed Pain Scale: 0-10 Numeric Is Patient Pain Free? Yes WC - Nurse 3 - General Ulcer D/C NN Start: 09/13/23 14:26 Freq: Status: Active Protocol: Activity Type Activity Date Activity User E-sign Co-sign Detail Recorded Client Recorded Date Recorded By Document 09/13/23 15:23 KW Desktop 09/13/23 15:25 KW 09/13/23 15:23 Wound Care Center Nurse 3 4-left medial leg -Negative Pressure Wound Therapy Continue -Setting (mmHg) 150 -Negative Pressure is Continuous -Primary Dressing Applied NonAdherent Contact Layer -NPWT Application Charge NPWT & Debridement (nc ) Pain Scale: 0-10 Numeric Is Patient Pain Free? Yes WC - Visit Discharge Discharge Condition Stable Ambulatory Status Ambulatory Transportation Private Auto Medication Reconcilliation completed & No provided to patient/care provider Clinical Summary of Care Provided Yes Assessment/Plan Assessment/Plan (1) Ulcer of right knee: CODE(S): L97.819 - Non-pressure chronic ulcer of other part of right lower leg with unspecified severity (2) Open wound of left knee: CODE(S): S81.002A - Unspecified open wound, left knee, initial encounter (3) Hematoma of right knee region: CODE(S): S80.01XA - Contusion of right knee, initial encounter (4) DM type 2, goal HbA1c < 7%: CODE(S): E11.9 - Type 2 diabetes mellitus without complications (5) Anemia of chronic disease: CODE(S): D63.8 - Anemia in other chronic diseases classified elsewhere (6) Anticoagulant long-term use: CODE(S): Z79.01 - residential (current) use of anticoagulants (7) On rivaroxaban therapy: CODE(S): Z79.01 - continuous churn buttermaker (current) use of anticoagulants (8) Obesity: CODE(S): E66.9 - Obesity, unspecified (9) Leg swelling: CODE(S): M79.89 - Other specified soft tissue disorders (10) Lymphedema of both lower extremities: CODE(S): I89.0 - Lymphedema, not elsewhere classified (11) Hematoma of left lower leg: CODE(S): S80.12XA - Contusion of left lower leg, initial encounter PLAN: Plan Patient was evaluated at the wound healing center today. Wound care - She has had 3 applications of EpiFix to right knee. Right knee now has a stable dry scab. Will keep this as a biologic dressing. Left knee wound place wound VAC at 150 mmHg to be changed 3 [address] adaptic covered with gauze over the miroslava wound excoriation at 10-11 o'clock before placing vac drape. Compression - Single tubigrip bilaterally topped with LAUREL wrap. Stressed that she may need to rewrap the LAUREL wrap several times a day as swelling goes down. She has Lymphedema. She needs better compression that the tubigrip and LAUREL wrap. Ordered her Farrow wraps for compression. Stressed importance keeping legs elevated when sitting. Encouraged to sleep in a bed laying flat. Operative cultures were negative. She was treated with IV- antibiotics initially and was changed to Keflex at discharge and has finished them. Prealbumin was 12.5 on 04/20/23. Continue nutritional supplementation with protein to help the healing process. Patient is obese and has moderate swelling that can be problematic as it will slow down healing. Hgb was 7.1 at discharge. She was discharged on Iron supplementation. Hgb from 04/28/23 was 9.0. If there is a plateau during the healing process which is likely secondary to the swelling at this time, then we can always proceed with delayed closure with skin grafting. Will obtain a CBC and BMP on Wednesday. Home [facility] will be able to draw her labs. Her Hgb 7.3 on 09/06/23. She is pale with a history of anemia and received 3 units of PRBCs while hospitalized. Will monitor closely. She was referred to Dr. Hanna for further evaluation since her venous studies suggested further evaluation. Unsure if she ever had that appointment. Will revisit that after the first of the year. She would really benefit from compression pumps due to the severity of her edema/lymphedema, even with her wearing consistent compression. Will apply to her insurance for compression pumps for her lymphedema/edema. Followup 3 weeks due to the holidays.
== END 2023-09-26 23:59 | disposition home or self-care (01) ==
LOC: WC 14:23
PROVIDERS: Referring Provider Surgery; Visit Provider Nurse Practitioner Family
DX: L97.819 Non-pressure chronic ulcer of other part of right lower leg with unspecified severity (principal); E11.9 Type 2 diabetes mellitus without complications; S80.01XA Contusion of right knee, initial encounter; S81.002A Unspecified open wound, left knee, initial encounter; D63.8 Anemia in other chronic diseases classified elsewhere; Z79.01 Long term (current) use of anticoagulants; E66.9 Obesity, unspecified; M79.89 Other specified soft tissue disorders; I89.0 Lymphedema, not elsewhere classified; S80.12XA Contusion of left lower leg, initial encounter
CPT/HCPCS: 97606; 99214; G0463

== ENCOUNTER → 2023-09-15 | Outpatient (CLI) | payer MEDICARE, SELFPAY ==
[2023-09-15 09:55] LABS: Hematocrit 26.1 % (37-47); Hemoglobin 7.4 g/dL (12.0-15.0); Mean Corp Hgb Conc 28.4 g/dL (32-36); Mean Corpuscular Hgb 27.6 pg (27.0-32.0); Mean Corpuscular Volume 97.4 fL (81-99); Mean Platelet Vol. 10.1 fl (6.2-12.0); Platelet Count 231 K/mm3 (150-450); RBC Distribution Width CV 15.7 % (11.6-14.6); RBC Distribution Width SD 56.3 fl (35.1-43.9); Red Blood Count 2.68 M/mm3 (4.2-5.4); White Blood Count 4.4 K/mm3 (4.4-11.0)
[2023-09-15 10:09] LABS: Anion Gap 4 (5-15); BUN 23 mg/dL (7-18); BUN/Creat Ratio 18.9 RATIO (10-20); Calcium,Total 8.8 mg/dL (8.5-10.1); Chloride 112 mmol/L (98-107); Creatinine, Serum 1.22 mg/dL (0.55-1.02); EST Glomerular Filtration Rate 46 mL/min (>60); Est Glom Filt Rate - Afr Amer 56 mL/min (>60); Glucose 107 mg/dL (74-106); Potassium 4.5 mmol/L (3.5-5.1); Sodium Level 141 mmol/L (136-145)
== END | disposition home or self-care (01) ==
LOC: LAB 09:09
PROVIDERS: Visit Provider Nurse Practitioner Family
DX: D64.9 Anemia, unspecified (principal); L97.929 Non-pressure chronic ulcer of unspecified part of left lower leg with unspecified severity; N18.9 Chronic kidney disease, unspecified
CPT/HCPCS: 36415; 80048; 85027

== ENCOUNTER → 2023-09-22 | Outpatient (CLI) | payer MEDICARE, SELFPAY ==
[2023-09-22 10:40] LABS: Hematocrit 26.3 % (37-47); Hemoglobin 7.6 g/dL (12.0-15.0); Mean Corp Hgb Conc 28.9 g/dL (32-36); Mean Corpuscular Hgb 28.4 pg (27.0-32.0); Mean Corpuscular Volume 98.1 fL (81-99); Mean Platelet Vol. 10.5 fl (6.2-12.0); Platelet Count 286 K/mm3 (150-450); RBC Distribution Width CV 15.5 % (11.6-14.6); RBC Distribution Width SD 55.1 fl (35.1-43.9); Red Blood Count 2.68 M/mm3 (4.2-5.4); White Blood Count 3.7 K/mm3 (4.4-11.0)
[2023-09-22 10:51] LABS: Anion Gap 5 (5-15); BUN 32 mg/dL (7-18); BUN/Creat Ratio 25.2 RATIO (10-20); Calcium,Total 8.9 mg/dL (8.5-10.1); Chloride 111 mmol/L (98-107); Creatinine, Serum 1.27 mg/dL (0.55-1.02); EST Glomerular Filtration Rate 44 mL/min (>60); Est Glom Filt Rate - Afr Amer 53 mL/min (>60); Glucose 166 mg/dL (74-106); Potassium 4.1 mmol/L (3.5-5.1); Sodium Level 140 mmol/L (136-145)
== END | disposition home or self-care (01) ==
LOC: LAB 09:12
PROVIDERS: Visit Provider Surgery
DX: S81.011D Laceration without foreign body, right knee, subsequent encounter (principal)
CPT/HCPCS: 36415; 80048; 85027

== ENCOUNTER 2023-10-27 14:00 | Outpatient (RCR) | payer MEDICARE, SELFPAY ==
[2023-09-27 00:33] VITALS: BP 192/69; PULSE 69; RESP 20; TEMP 36.3; BMI 46.6
[2023-10-04 15:24] VITALS: BP 189/60; PULSE 62; RESP 16; TEMP 36; BMI 46.6
--- NOTE | 2023-10-04 16:19 | PCM.WC.PN ---
History of Present Illness Date of Service: 10/04/23 Chief Complaint: Nonhealing hematoma ulcer right knee History of Wound: Patient fell on 09/01/23 and developed a LEFT proximal leg hematoma. Had surgery on 09/03/23 for Evacuation of hematoma with wound VAC placement by Dr. Lockwood. Wound VAC placed on 09/06/23. Operative culture positive for MSSA. Treated with Keflex that she completed 09/13/23. Acute on chronic anemia that she required transfusion of 3 units of PRBCs. Hgb on was 7.3. Repeat Hgb on 09/22/23 was 7.6. Venous studies done on 08/13/23 - Sapheno-femoral junctions are bilaterally incompetent . Segmental valvular incompetence is noted within the great saphenous veins bilaterally. The right small saphenous vein is patent and incompetent. The accessory saphenous vein at the right knee is incompetent. Two accessory saphenous veins in the left mid-thigh are incompetent. An accessory saphenous vein at the left knee is incompetent. An incompetent lens polisher hand vein is noted in the right calf, located 5 centimeters proximal to the right medial malleolus. Pulsatile flow is noted in the deep venous system bilaterally, which may be indicative of elevated central venous pressure (i.e. congestive heart failure, pulmonary hypertension, etc.). Clinical correlation is advised. Arterial studies obtained 08/13/23 - Biphasic and triphasic Doppler waveforms are noted at ankle level on the right. Triphasic Doppler waveforms are noted at ankle level on the left. Pulse-volume recordings appear diminished at digital level on the left, but satisfactory at all other levels bilaterally. Resting ankle-brachial indices are normal bilaterally. The right digital-brachial index is mildly diminished. The left digital-brachial index is low-normal. Arterial flow appears normal at ankle level bilaterally. 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 Right JEFFREY - 1.00, left JEFFREY - 1.18. She is currently using the VAC for wound care. Today she denies fever. Her appetite is ok. Progress of Wound: Improved with good granulation tissue. The surrounding lymphedema is still an issue. Objective Data Objective Data Vital Signs: Vital Signs Temp Pulse Resp BP O2 Del Method 96.8 F L 62 16 189/60 H Room Air 10/04/23 15:24 10/04/23 15:24 10/04/23 15:24 10/04/23 15:24 10/04/23 15:24 Oxygen Delivery Method Room Air Weight: 307 lb Body Mass Index (BMI) 46.6 Prealbumin was 12.5 on 04/20/23.? Continue nutritional supplementation with protein to help the healing process. Lab / Micro Data Attestation: I reviewed the patient's lab results. Lab results narrative: Hgb was 7.3 at discharge on 09/06/23. She received PRBC while in hospital. On 09/22/23 the Hgb was 7.6. Will continue to monitor. She is on Iron supplementation. Charges/Coding Procedures Integumentary 111xxx-113xx: 57970 Zita musc/fascia 20 sq cm/< (ICD-10 - L97.925, S80.12xA, E11.9, D63.8, Z79.01, E66.9, I89.0) Add On Codes: 09320 Zita musc/fascia add-on (x3 Units) (ICD-10 - L97.925, S80.12xA, E11.9, D63.8, Z79.01, E66.9, I89.0) Debridement Note Debridement Note Wound debrided: #4 Left medial leg. Laterality: Left Wound Grade/Stage: 2. Type of Debridement: Excisional debridement Anesthesia Used: 5% Lidocaine Gel Depth: Down to and including healthy tissue, in the subcutaneous layer and to muscle Percentage of wound debrided: 100 Instrument Used: 5mm curette Tissue Removed: subcutaneous tissue and muscle. Severity: Fat Layer Exposed (muscle is exposed.) Amount of bleeding with debridement: Mild Bleeding Controlled with: Pressure and Compression and gauze Patient tolerated procedure: Patient tolerated procedure well Post-Debridement Measurements and Additional Note: Post-Debridement Measurements/Treatment - Nurse 1 - General Ulcer Assessment Start: 10/04/23 15:24 Freq: Status: Active Protocol: LOWEXT Activity Type Activity Date Activity User E-sign Co-sign Detail Recorded Client Recorded Date Recorded By Document 10/04/23 15:24 BM Desktop 10/04/23 15:38 BMF 10/04/23 15:24 - Today's Visit Information Type of service Follow-up Visit (Physician/COATER ) Arrival Mode Ambulatory, Walker Transfer Assistance None Accompanied by daughter Patient Identification Verified (Name & Yes ) Patient Requires Transmission-Based No Precautions Height and Weight Body Mass Index (BMI) 46.6 BMI Classification Obese Vital Signs Temperature (97.8 F-99.1 F) 96.8 F L Temperature Source Temporal Pulse Rate (60-100) 62 Pulse Location Monitor Respiratory Rate (12-18) 16 Respiratory rate source Observation Oxygen Delivery Method Room Air Blood Pressure (90/60-120/80) 189/60 H Blood Pressure Mean (mm Hg) 103 Source Monitor Position Sitting Blood Pressure Location Left Forearm History Since Last Visit- (Skip if this is Patient's initial visit) Have you changed medications since your No last visit? Any new allergies or adverse reactions No Had a fall/change in ADL's that may No increase risk of falls Signs or symptoms of abuse and/or No neglect since last visit Have you been in the hospital since your No last visit? Has dressing in place as prescribed Yes Has compression in place as prescribed Yes Has offloadiing in place as prescribed N/A Experienced any changes in pain level or No management Left Footwear Regular Shoe Right Footwear Regular Shoe Pain Scale: 0-10 Numeric Is Patient Pain Free? Yes WC - Nurse 1 - General Ulcer Measurement Start: 10/04/23 15:24 Freq: Status: Active Protocol: Activity Type Activity Date Activity User E-sign Co-sign Detail Recorded Client Recorded Date Recorded By Document 10/04/23 15:24 [facility] Desktop 10/04/23 15:38 [facility] 10/04/23 15:24 Wound Center Nurse 1 4-left medial leg -Combined with other wound No -Current Size (cm) - Length 9.6 -Current Size (cm) - Width 6.9 -Current Size (cm) - Depth 0.9 -Total Square Cm 66.24 -Tunneling No -Undermining/Tunneling No -Circular Undermining No -Exudate Amt Large -Exudate Type Serosanguineous -Wound Margin Distinct, Outline Attached -Granulation Amt Medium (34-66%) -Granulation Quality Red -Slough/Fibrin Yes -Necrosis Amt Medium (34-66%) -Necrotic Tissue Type Adherent Slough -Texture (Miroslava-wound Skin Appearance) Assessed, Localized Edema ,Scarring -Moisture (Miroslava-wound Skin Appearance) Assessed,Dry/ Scaly -Color (Miroslava-wound Skin Appearance) Assessed, Erythema -Temperature (Miroslava-wound Skin No Abnormality Appearance) (Pt Warm) -Tenderness on Palpation (Miroslava-wound No Skin Appearance) -Ulcer Cleansing Soap and Water -Foul Odor after Cleansing No -Anesthetic Used 4% Lidocaine Solution Lower Limb Edema Present Yes Left Calf (cm) 57.3 Left Ankle (cm) 30 WC - Nurse 2 - General Ulcer CM Notes Start: 10/04/23 15:24 Freq: Status: Active Protocol: Activity Type Activity Date Activity User E-sign Co-sign Detail Recorded Client Recorded Date Recorded By Document 10/04/23 15:55 JF Laptop 10/04/23 16:01 10/04/23 15:55 Wound Center Nurse 2 4-left medial leg -Time 15:55 -Correct Patient Yes -Correct Side, Site, Position Yes -Correct Procedure Yes -Procedure Performed Yes -Type of Procedure Debridement -Clinical Debridement Muscle / Fascia -Tissue Removed Muscle,Fascia -Post Debridement (cm) - Length 9.6 -Post Debridement (cm) - Width 7 -Post Debridement (cm) - Depth 1.0 -Total Square (Post) (cm) 67.2 -Area of Debridement (cm) - Length 9.6 -Area of Debridement (cm) - Width 7.0 -Total Square (Area) (cm) 67.20 -Tunneling No -Undermining/Tunneling No -Circular Undermining No -Wound/Ulcer Outcome Not Healed -Ulcer Cleansing Rinsed/ Irrigated with Saline -Foul Odor after Cleansing No -Bioengineered Tissue No -Bleeding Controlled with Pressure -Treatment Response Procedure Tolerated Well -Offloading No -Debridement - Muscle / Fascia, 1st Yes 20sq cm -Debridement, Muscle/Fascia, ea addt'l 3 20sq cm or part thereof Pain Scale: 0-10 Numeric Is Patient Pain Free? Yes - Nurse 3 - General Ulcer D/C NN Start: 10/04/23 15:24 Freq: Status: Active Protocol: Activity Type Activity Date Activity User E-sign Co-sign Detail Recorded Client Recorded Date Recorded By Document 10/04/23 16:11 DL Desktop 10/04/23 16:14 DL 10/04/23 16:11 Wound Care Center Nurse 3 4-left medial leg -Ulcer Cleansing Rinsed/ Irrigated with Saline -Foul Odor after Cleansing No -Primary Dressing Applied Optilok 6.5x10 -Other Dressing dakins -Primary Dressing Covered/Secured with Dry Gauze & Roll Gauze, Secured with Tape -Optilok 6.5x10 1 duke -Compression Wrap Mc Wrap Treatment Response Procedure Tolerated Well Pain Scale: 0-10 Numeric Is Patient Pain Free? Yes WC - Visit Discharge Discharge Condition Stable Ambulatory Status Ambulatory Transportation Private Auto Facility Type Home Health Orders Sent Yes Assessment/Plan Assessment/Plan (1) Ulcer of left lower extremity with muscle involvement without evidence of necrosis: CODE(S): L97.925 - Non-pressure chronic ulcer of unspecified part of left lower leg with muscle involvement without evidence of necrosis (2) Hematoma of left lower leg: CODE(S): S80.12XA - Contusion of left lower leg, initial encounter (3) DM type 2, goal HbA1c < 7%: CODE(S): E11.9 - Type 2 diabetes mellitus without complications (4) Anemia of chronic disease: CODE(S): D63.8 - Anemia in other chronic diseases classified elsewhere (5) Anticoagulant long-term use: CODE(S): Z79.01 - terminal system operator (current) use of anticoagulants (6) On rivaroxaban therapy: CODE(S): Z79.01 - terminal system operator (current) use of anticoagulants (7) Obesity: CODE(S): E66.9 - Obesity, unspecified (8) Lymphedema of both lower extremities: CODE(S): I89.0 - Lymphedema, not elsewhere classified PLAN: Plan Will have a VAC holiday and proceed with Dakin's dressing changes followed by a Tubigrip and a compression mc wrap for the left medial leg ulcer. When a double mc wrap is available, may stop the Tubigrip. If healing is slowed, will culture the ulcer. A positive culture will necessitate antibiotic therapy. With her lymphedema, additional compression may be necessary with Farrow wraps. Stressed importance keeping legs elevated when sitting. Encouraged to sleep in a bed laying flat. Prealbumin was 12.5 on 04/20/23. Continue nutritional supplementation with protein to help the healing process. Patient is obese and has moderate swelling that can be problematic as it will slow down healing. Hgb was 7.3 at discharge on 09/06/23. Had PRBC while hospitalized. Recent Hgb on 09/22/23 was 7.6. She is on Iron Supplementation. Will monitor closely. If there is a plateau during the healing process which is likely secondary to the swelling at this time, then we can always proceed with delayed closure with skin grafting. Or may try advanced skin substitute grafts which are applied at the Wound Center. She would really benefit from compression pumps due to the severity of her edema/lymphedema, even with her wearing consistent compression. Will apply to her insurance for compression pumps for her lymphedema/edema. Followup one week.
[2023-10-11 15:00] VITALS: BP 155/53; PULSE 72; RESP 20; TEMP 36; BMI 46.6
--- NOTE | 2023-10-11 15:36 | PCM.WC.PN ---
History of Present Illness Date of Service: 10/11/23 Chief Complaint: Nonhealing hematoma ulcer left knee History of Wound: Patient fell on 09/01/23 and developed a LEFT proximal leg hematoma. Had surgery on 09/03/23 for Evacuation of hematoma with wound VAC placement by Dr. Lockwood. Wound VAC placed on 09/06/23. Operative culture positive for MSSA. Treated with Keflex that she completed 09/13/23. Acute on chronic anemia that she required transfusion of 3 units of PRBCs. Hgb on was 7.3. Repeat Hgb on 09/22/23 was 7.6. Venous studies done on 08/13/23 - Sapheno-femoral junctions are bilaterally incompetent . Segmental valvular incompetence is noted within the great saphenous veins bilaterally. The right small saphenous vein is patent and incompetent. The accessory saphenous vein at the right knee is incompetent. Two accessory saphenous veins in the left mid-thigh are incompetent. An accessory saphenous vein at the left knee is incompetent. An incompetent water well driller vein is noted in the right calf, located 5 centimeters proximal to the right medial malleolus. Pulsatile flow is noted in the deep venous system bilaterally, which may be indicative of elevated central venous pressure (i.e. congestive heart failure, pulmonary hypertension, etc.). Clinical correlation is advised. Arterial studies obtained 08/13/23 - Biphasic and triphasic Doppler waveforms are noted at ankle level on the right. Triphasic Doppler waveforms are noted at ankle level on the left. Pulse-volume recordings appear diminished at digital level on the left, but satisfactory at all other levels bilaterally. Resting ankle-brachial indices are normal bilaterally. The right digital-brachial index is mildly diminished. The left digital-brachial index is low-normal. Arterial flow appears normal at ankle level bilaterally. 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 Right JEFFREY - 1.00, left JEFFREY - 1.18. Wound care - Dakin's. She had a VAC holiday. Today she denies fever. Her appetite is ok. Progress of Wound: Improved with good granulation tissue. The surrounding lymphedema is still an issue. Objective Data Objective Data Vital Signs: Vital Signs Temp Pulse Resp BP O2 Del Method 96.8 F L 72 20 H 155/53 H Room Air 10/11/23 15:00 10/11/23 15:00 10/11/23 15:00 10/11/23 15:00 10/04/23 15:24 Oxygen Delivery Method Room Air Weight: 307 lb Body Mass Index (BMI) 46.6 Prealbumin was 12.5 on 04/20/23.? Continue nutritional supplementation with protein to help the healing process. Lab / Micro Data Attestation: I reviewed the patient's lab results. Lab results narrative: Hgb was 7.3 at discharge on 09/06/23. She received PRBC while in hospital. On 09/22/23 the Hgb was 7.6. Will continue to monitor. She is on Iron supplementation. Charges/Coding Procedures Integumentary [id number]: 34735 Zita musc/fascia 20 sq cm/< (ICD-10 - L97.925, S80.12xA, E11.9, D63.8, Z79.01, E66.9, I89.0) Add On Codes: 34958 Zita musc/fascia add-on (x3 Units) (ICD-10 - L97.925, S80.12xA, E11.9, D63.8, Z79.01, E66.9, I89.0) Debridement Note Debridement Note Wound debrided: #4 Left medial leg. Laterality: Left Wound Grade/Stage: 2. Type of Debridement: Excisional debridement Anesthesia Used: 5% Lidocaine Gel Depth: Down to and including healthy tissue, in the subcutaneous layer and to muscle Percentage of wound debrided: 100 Instrument Used: 5mm curette Tissue Removed: subcutaneous tissue and muscle. Severity: Fat Layer Exposed (muscle is exposed.) Amount of bleeding with debridement: Mild Bleeding Controlled with: Pressure and Compression and gauze Patient tolerated procedure: Patient tolerated procedure well Post-Debridement Measurements and Additional Note: Post-Debridement Measurements/Treatment WC - Nurse 1 - General Ulcer Assessment Start: 10/04/23 15:24 Freq: Status: Active Protocol: AMBREEN.LOWEXT Activity Type Activity Date Activity User E-sign Co-sign Detail Recorded Client Recorded Date Recorded By Document 10/04/23 15:24 BMF Desktop 10/04/23 15:38 BMF Document 10/11/23 15:00 DL Desktop 10/11/23 15:08 DL 10/04/23 10/11/23 15:24 15:00 WC - Today's Visit Information Type of service Follow-up Visit Follow-up Visit (Physician/GYN (Physician/GYN ) ) Arrival Mode Ambulatory, Ambulatory Walker Transfer Assistance None None Accompanied by daughter Patient Identification Verified (Name & Yes Yes ) Patient Requires Transmission-Based No No Precautions Height and Weight Body Mass Index (BMI) 46.6 46.6 BMI Classification Obese Obese Vital Signs Temperature (97.8 F-99.1 F) 96.8 F L 96.8 F L Temperature Source Temporal Temporal Pulse Rate (60-100) 62 72 Pulse Location Monitor Monitor Respiratory Rate (12-18) 16 20 H Respiratory rate source Observation Observation Oxygen Delivery Method Room Air Blood Pressure (90/60-120/80) 189/60 H 155/53 H Blood Pressure Mean (mm Hg) 103 87 Source Monitor Monitor Position Sitting Blood Pressure Location Left Forearm History Since Last Visit- (Skip if this is Patient's initial visit) Have you changed medications since your No No last visit? Any new allergies or adverse reactions No No Had a fall/change in ADL's that may No No increase risk of falls Signs or symptoms of abuse and/or No No neglect since last visit Have you been in the hospital since your No No last visit? Has dressing in place as prescribed Yes Yes Has compression in place as prescribed Yes Yes Has offloadiing in place as prescribed N/A N/A Experienced any changes in pain level or No No management Left Footwear Regular Shoe Right Footwear Regular Shoe Pain Scale: 0-10 Numeric Is Patient Pain Free? Yes Yes - Nurse 1 - General Ulcer Measurement Start: 10/04/23 15:24 Freq: Status: Active Protocol: Activity Type Activity Date Activity User E-sign Co-sign Detail Recorded Client Recorded Date Recorded By Document 10/04/23 15:24 [facility] Desktop 10/04/23 15:38 [facility] Document 10/11/23 15:00 DL Desktop 10/11/23 15:08 DL 10/04/23 10/11/23 15:24 15:00 Wound Center Nurse 1 4-left medial leg -Combined with other wound No -Current Size (cm) - Length 9.6 9.5 -Current Size (cm) - Width 6.9 7.3 -Current Size (cm) - Depth 0.9 0.7 -Total Square Cm 66.24 69.35 -Photo Taken Yes -Tunneling No -Undermining/Tunneling No -Circular Undermining No -Exudate Amt Large Medium -Exudate Type Serosanguineous Serosanguineous -Wound Margin Distinct, Distinct, Outline Outline Attached Attached -Granulation Amt Medium (34-66%) Medium (34-66%) -Granulation Quality Red Red -Slough/Fibrin Yes -Necrosis Amt Medium (34-66%) Medium (34-66%) -Necrotic Tissue Type Adherent Slough Adherent Slough -Structure Exposed N/A -Texture (Miroslava-wound Skin Appearance) Assessed, Scarring Localized Edema ,Scarring -Moisture (Miroslava-wound Skin Appearance) Assessed,Dry/ No Abnormality Scaly -Color (Miroslava-wound Skin Appearance) Assessed, Hemosiderin Erythema Staining -Temperature ([place]roslava-wound Skin No Abnormality No Abnormality Appearance) (Pt Warm) (Pt Warm) -Tenderness on Palpation (Miroslava-wound No No Skin Appearance) -Ulcer Cleansing Soap and Water Soap and Water -Foul Odor after Cleansing No No -Anesthetic Used 4% Lidocaine 4% Lidocaine Solution Solution Lower Limb Edema Present Yes Left Calf (cm) 57.3 Left Ankle (cm) 30 WC - Nurse 2 - General Ulcer CM Notes Start: 10/04/23 15:24 Freq: Status: Active Protocol: Activity Type Activity Date Activity User E-sign Co-sign Detail Recorded Client Recorded Date Recorded By Document 10/04/23 15:55 JF Laptop 10/04/23 16:01 Document 10/11/23 15:26 Laptop 10/11/23 15:30 10/04/23 10/11/23 15:55 15:26 Wound Center Nurse 2 4-left medial leg -Time 15:55 15:26 -Correct Patient Yes Yes -Correct Side, Site, Position Yes Yes -Correct Procedure Yes Yes -Procedure Performed Yes Yes -Type of Procedure Debridement Debridement -Clinical Debridement Muscle / Fascia Muscle / Fascia -Tissue Removed Muscle,Fascia Muscle,Fascia -Post Debridement (cm) - Length 9.6 9.5 -Post Debridement (cm) - Width 7 7.4 -Post Debridement (cm) - Depth 1.0 0.8 -Total Square (Post) (cm) 67.2 70.30 -Area of Debridement (cm) - Length 9.6 9.5 -Area of Debridement (cm) - Width 7.0 7.4 -Total Square (Area) (cm) 67.20 70.30 -Tunneling No No -Undermining/Tunneling No No -Circular Undermining No No -Wound/Ulcer Outcome Not Healed Not Healed -Ulcer Cleansing Rinsed/ Rinsed/ Irrigated with Irrigated with Saline Saline -Foul Odor after Cleansing No No -Bioengineered Tissue No No -Bleeding Controlled with Pressure Pressure -Treatment Response Procedure Procedure Tolerated Well Tolerated Well -Offloading No No -Debridement - Muscle / Fascia, 1st Yes Yes 20sq cm -Debridement, Muscle/Fascia, ea addt'l 3 3 20sq cm or part thereof Pain Scale: 0-10 Numeric Is Patient Pain Free? Yes Yes - Nurse 3 - General Ulcer D/C NN Start: 10/04/23 15:24 Freq: Status: Active Protocol: Activity Type Activity Date Activity User E-sign Co-sign Detail Recorded Client Recorded Date Recorded By Document 10/04/23 16:11 DL Desktop 10/04/23 16:14 DL 10/04/23 16:11 Wound Care Center Nurse 3 4-left medial leg -Ulcer Cleansing Rinsed/ Irrigated with Saline -Foul Odor after Cleansing No -Primary Dressing Applied Optilok 6.5x10 -Other Dressing dakins -Primary Dressing Covered/Secured with Dry Gauze & Roll Gauze, Secured with Tape -Optilok 6.5x10 1 duke -Compression Wrap Mc Wrap Treatment Response Procedure Tolerated Well Pain Scale: 0-10 Numeric Is Patient Pain Free? Yes - Visit Discharge Discharge Condition Stable Ambulatory Status Ambulatory Transportation Private [facility] Facility Type Home Health Orders Sent Yes Assessment/Plan Assessment/Plan (1) Ulcer of left lower extremity with muscle involvement without evidence of necrosis: CODE(S): L97.925 - Non-pressure chronic ulcer of unspecified part of left lower leg with muscle involvement without evidence of necrosis (2) Hematoma of left lower leg: CODE(S): S80.12XA - Contusion of left lower leg, initial encounter (3) DM type 2, goal HbA1c < 7%: CODE(S): E11.9 - Type 2 diabetes mellitus without complications (4) Anemia of chronic disease: CODE(S): D63.8 - Anemia in other chronic diseases classified elsewhere (5) Anticoagulant long-term use: CODE(S): Z79.01 - long term (current) use of anticoagulants (6) On rivaroxaban therapy: CODE(S): Z79.01 - long term (current) use of anticoagulants (7) Obesity: CODE(S): E66.9 - Obesity, unspecified (8) Lymphedema of both lower extremities: CODE(S): I89.0 - Lymphedema, not elsewhere classified PLAN: Plan Will stop the VAC and continure with Dakin's dressing changes followed by a Tubigrip and a compression mc wrap for the left medial leg ulcer. When a double mc wrap is available, may stop the Tubigrip. If healing is slowed, will culture the ulcer. A positive culture will necessitate antibiotic therapy. With her lymphedema, additional compression may be necessary with [place]arrow wraps. Stressed importance keeping legs elevated when sitting. Encouraged to sleep in a bed laying flat. Prealbumin was 12.5 on 04/20/23. Continue nutritional supplementation with protein to help the healing process. Patient is obese and has moderate swelling that can be problematic as it will slow down healing. Hgb was 7.3 at discharge on 09/06/23. Had PRBC while hospitalized. Recent Hgb on 09/22/23 was 7.6. She is on Iron Supplementation. Will monitor closely. If there is a plateau during the healing process which is likely secondary to the swelling at this time, then we can always proceed with delayed closure with skin grafting. Or may try advanced skin substitute grafts which are applied at the Wound Center. She would really benefit from compression pumps due to the severity of her edema/lymphedema, even with her wearing consistent compression. Will apply to her insurance for compression pumps for her lymphedema/edema. Followup one week.
[2023-10-18 15:25] VITALS: BP 164/54; PULSE 62; RESP 20; TEMP 36.2; BMI 46.6
--- NOTE | 2023-10-18 16:00 | PN.PCM_ITS ---
History of Present Illness Date of Service: 10/18/23 Chief Complaint: Nonhealing hematoma ulcer left knee History of Wound: Patient fell on 09/01/23 and developed a LEFT proximal leg hematoma. Had surgery on 09/03/23 for Evacuation of hematoma with wound VAC placement by Dr. Lockwood. Wound VAC placed on 09/06/23. Operative culture positive for MSSA. Treated with Keflex that she completed 09/13/23. Acute on chronic anemia that she required transfusion of 3 units of PRBCs. Hgb on was 7.3. Repeat Hgb on 09/22/23 was 7.6. Venous studies done on 08/13/23 - Sapheno-femoral junctions are bilaterally incompetent . Segmental valvular incompetence is noted within the great saphe nous veins bilaterally. The right small saphenous vein is patent and incompetent. The accessory saphenous vein at the right knee is incompetent. Two accessory saphenous veins in the left mid-thigh are incompetent. An accessory saphenous vein at the left knee is incompetent. 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 Pulsatile flow is noted in the deep venous system bilaterally, which may be indicative of elevated central venous pressure (i.e. congestive heart failure, pulmonary hypertension, etc.). Clinical correlation is advised. Arterial studies obtained 08/13/23 - Biphasic and triphasic Doppler waveforms are noted at ankle level on the right. Triphasic Doppler waveforms are noted at ankle level on the left. Pulse-volume recordings appear diminished at digital level on the left, but satisfactory at all other levels bilaterally. Resting ankle-brachial indices are normal bilaterally. The right digital-brachial index is mildly diminished. The left digital-brachial index is low-normal. Arterial flow appears normal at ankle level bilaterally. 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 Right JEFFREY - 1.00, left JEFFREY - 1.18. Wound care - Dakin's. The VAC was returned. Today she denies fever. Her appetite is ok. Progress of Wound: Improved with good granulation tissue. The surrounding lymphedema is improving slowly. Objective Data Objective Data Vital Signs: Vital Signs Temp Pulse Resp BP O2 Del Method 97.2 F L 62 20 H 164/54 H Room Air 10/18/23 15:25 10/18/23 15:25 10/18/23 15:25 10/18/23 15:25 10/18/23 15:25 Oxygen Delivery Method Room Air Weight: 307 lb Body Mass Index (BMI) 46.6 Prealbumin was 12.5 on 04/20/23.? Continue nutritional supplementation with protein to help the healing process. Lab / Micro Data Attestation: I reviewed the patient's lab results. Lab results narrative: Hgb was 7.3 at discharge on 09/06/23. She received PRBC while in hospital. On 09/22/23 the Hgb was 7.6. Will continue to monitor. She is on Iron supplementation. Charges/Coding Procedures Integumentary [id number]: [id number] Zita subq tissue 20 sq cm/< (ICD-10 - L97.925, S80.12xA, E11.9, D63.8, Z79.01, E66.9, I89.0) Add On Codes: 38216 Zita subq tissue add-on (x3 Units) (ICD-10 - L97.925, S80.12xA, E11.9, D63.8, Z79.01, E66.9, I89.0) Debridement Note Debridement Note Wound debrided: #4 Left medial leg. Laterality: Left Wound Grade/Stage: 2. Type of Debridement: Excisional debridement Anesthesia Used: 5% Lidocaine Gel Depth: Down to and including healthy tissue and in the subcutaneous layer Percentage of wound debrided: 100 Instrument Used: 5mm curette Tissue Removed: subcutaneous tissue and muscle. Severity: Fat Layer Exposed Amount of bleeding with debridement: Mild Bleeding Controlled with: Pressure and Compression and gauze Patient tolerated procedure: Patient tolerated procedure well Post-Debridement Measurements and Additional Note: Post-Debridement Measurements/Treatment WC - Nurse 1 - General Ulcer Assessment Start: 10/04/23 15:24 Freq: Status: Active Protocol: SANDRAEXT Activity Type Activity Date Activity User E-sign Co-sign Detail Recorded Client Recorded Date Recorded By Document 10/04/23 15:24 BMF Desktop 10/04/23 15:38 BMF Document 10/11/23 15:00 DL Desktop 10/11/23 15:08 DL Document 10/18/23 15:25 BMF Desktop 10/18/23 15:28 BMF Edit Result 10/18/23 15:25 BMF (1) Desktop 10/18/23 15:30 BMF (1) Pulse Rate (60-100) => 62 Respiratory Rate (12-18) => 20 H Blood Pressure (90/60-120/80) => 164/54 H Blood Pressure Mean (mm Hg) => 90 10/04/23 10/11/23 10/18/23 15:24 15:00 15:25 WC - Today's Visit Information Type of service Follow-up Visit Follow-up Visit Follow-up Visit (Physician/EXTERIOR WORK HELPER (Physician/EXTERIOR WORK HELPER (Physician/EXTERIOR WORK HELPER ) ) ) Arrival Mode Ambulatory, Ambulatory Ambulatory, Walker Walker Transfer Assistance None None Accompanied by daughter DAUGHTER Patient Identification Verified (Name & Yes Yes Yes ) Patient Requires Transmission-Based No No Precautions Height and Weight Body Mass Index (BMI) 46.6 46.6 46.6 BMI Classification Obese Obese Obese Vital Signs Temperature (97.8 F-99.1 F) 96.8 F L 96.8 F L 97.2 F L Temperature Source Temporal Temporal Temporal Pulse Rate (60-100) 62 72 62 Pulse Location Monitor Monitor Monitor Respiratory Rate (12-18) 16 20 H 20 H Respiratory rate source Observation Observation Observation Oxygen Delivery Method Room Air Room Air Blood Pressure (90/60-120/80) 189/60 H 155/53 H 164/54 H Blood Pressure Mean (mm Hg) 103 87 90 Source Monitor Monitor Monitor Position Sitting Semi-Fowlers Blood Pressure Location Left Forearm Left Arm History Since Last Visit- (Skip if this is Patient's initial visit) Have you changed medications since your No No No last visit? Any new allergies or adverse reactions No No No Had a fall/change in ADL's that may No No No increase risk of falls Signs or symptoms of abuse and/or No No No neglect since last visit Have you been in the hospital since your No No No last visit? Has dressing in place as prescribed Yes Yes Yes Has compression in place as prescribed Yes Yes Yes Has offloadiing in place as prescribed N/A N/A N/A Experienced any changes in pain level or No No No management Left Footwear Regular Shoe Regular Shoe Right Footwear Regular Shoe Regular Shoe Pain Scale: 0-10 Numeric Is Patient Pain Free? Yes Yes Yes WC - Nurse 1 - General Ulcer Measurement Start: 10/04/23 15:24 Freq: Status: Active Protocol: Activity Type Activity Date Activity User E-sign Co-sign Detail Recorded Client Recorded Date Recorded By Document 10/04/23 15:24 BMF Desktop 10/04/23 15:38 BMF Document 10/11/23 15:00 DL Desktop 10/11/23 15:08 DL Document 10/18/23 15:25 [facility] Desktop 10/18/23 15:28 BMF 10/04/23 10/11/23 10/18/23 15:24 15:00 15:25 Wound Center Nurse 1 4-left medial leg -Combined with other wound No -Current Size (cm) - Length 9.6 9.5 9.1 -Current Size (cm) - Width 6.9 7.3 5.6 -Current Size (cm) - Depth 0.9 0.7 1.1 -Total Square Cm 66.24 69.35 50.96 -Date of Last Picture (Recall this 10/18/23 field) -Photo Taken Yes Yes -Tunneling No -Undermining/Tunneling No -Circular Undermining No -Exudate Amt Large Medium Medium -Exudate Type Serosanguineous Serosanguineous Serosanguineous -Wound Margin Distinct, Distinct, Distinct, Outline Outline Outline Attached Attached Attached -Granulation Amt Medium (34-66%) Medium (34-66%) Large (67-100%) -Granulation Quality Red Red Red -Slough/Fibrin Yes -Necrosis Amt Medium (34-66%) Medium (34-66%) Small (1-33%) -Necrotic Tissue Type Adherent Slough Adherent Slough Adherent Slough -Structure Exposed N/A -Texture (Miroslava-wound Skin Appearance) Assessed, Scarring Assessed Localized Edema ,Scarring -Moisture (Miroslava-wound Skin Appearance) Assessed,Dry/ No Abnormality Assessed Scaly -Color (Miroslava-wound Skin Appearance) Assessed, Hemosiderin Assessed, Erythema Staining Erythema -Temperature (Miroslava-wound Skin No Abnormality No Abnormality Appearance) (Pt Warm) (Pt Warm) -Tenderness on Palpation (Miroslava-wound No No Skin Appearance) -Ulcer Cleansing Soap and Water Soap and Water Soap and Water -Foul Odor after Cleansing No No No -Anesthetic Used 4% Lidocaine 4% Lidocaine 4% Lidocaine Solution Solution Solution Lower Limb Edema Present Yes Left Calf (cm) 57.3 52.1 Left Ankle (cm) 30 30.4 WC - Nurse 2 - General Ulcer CM Notes Start: 10/04/23 15:24 Freq: Status: Active Protocol: Activity Type Activity Date Activity User E-sign Co-sign Detail Recorded Client Recorded Date Recorded By Document 10/04/23 15:55 Laptop 10/04/23 16:01 Document 10/11/23 15:26 Laptop 10/11/23 15:30 Document 10/18/23 15:38 Laptop 10/18/23 15:43 10/04/23 10/11/23 10/18/23 15:55 15:26 15:38 Wound Center Nurse 2 4-left medial leg -Time 15:55 15:26 15:39 -Correct Patient Yes Yes Yes -Correct Side, Site, Position Yes Yes Yes -Correct Procedure Yes Yes Yes -Procedure Performed Yes Yes Yes -Type of Procedure Debridement Debridement Debridement -Clinical Debridement Muscle / Fascia Muscle / Fascia Subcutaneous -Tissue Removed Muscle,Fascia Muscle,Fascia Subcutaneous -Post Debridement (cm) - Length 9.6 9.5 8.8 -Post Debridement (cm) - Width 7 7.4 7.4 -Post Debridement (cm) - Depth 1.0 0.8 0.8 -Total Square (Post) (cm) 67.2 70.30 65.12 -Area of Debridement (cm) - Length 9.6 9.5 8.8 -Area of Debridement (cm) - Width 7.0 7.4 7.4 -Total Square (Area) (cm) 67.20 70.30 65.12 -Tunneling No No No -Undermining/Tunneling No No No -Circular Undermining No No No -Wound/Ulcer Outcome Not Healed Not Healed Not Healed -Ulcer Cleansing Rinsed/ Rinsed/ Rinsed/ Irrigated with Irrigated with Irrigated with Saline Saline Saline -Foul Odor after Cleansing No No No -Bioengineered Tissue No No No -Bleeding Controlled with Pressure Pressure Pressure -Treatment Response Procedure Procedure Procedure Tolerated Well Tolerated Well Tolerated Well -Offloading No No No -Debridement - Subq, 1st 20sq cm Yes -Debridement, SubQ, ea addt'l 20sq cm 3 or part thereof -Debridement - Muscle / Fascia, 1st Yes Yes 20sq cm -Debridement, Muscle/Fascia, ea addt'l 3 3 20sq cm or part thereof Pain Scale: 0-10 Numeric Is Patient Pain Free? Yes Yes Yes - Nurse 3 - General Ulcer D/C NN Start: 10/04/23 15:24 Freq: Status: Active Protocol: Activity Type Activity Date Activity User E-sign Co-sign Detail Recorded Client Recorded Date Recorded By Document 10/04/23 16:11 DL Desktop 10/04/23 16:14 DL Document 10/11/23 15:38 KW Desktop 10/11/23 15:39 KW Document 10/18/23 15:50 BMF Desktop 10/18/23 15:50 BMF 10/04/23 10/11/23 10/18/23 16:11 15:38 15:50 Wound Care Center Nurse 3 4-left medial leg -Ulcer Cleansing Rinsed/ Irrigated with Saline -Foul Odor after Cleansing No -Primary Dressing Applied Optilok 6.5x10 Optilok 8x12 -Other Dressing dakins -Primary Dressing Covered/Secured with Dry Gauze & Dry Gauze & Dry Gauze & Roll Gauze, Roll Gauze, Roll Gauze, Secured with Secured with Secured with Tape Tape Tape -Optilok 6.5x10 1 -Optilok 8x12 1 Left -Compression Wrap Mc Wrap duke -Compression Wrap Mc Wrap Mc Wrap Treatment Response Procedure Tolerated Well Pain Scale: 0-10 Numeric Is Patient Pain Free? 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 without evidence of necrosis (2) Hematoma of left lower leg: CODE(S): S80.12XA - Contusion of left lower leg, initial encounter (3) DM type 2, goal HbA1c < 7%: CODE(S): E11.9 - Type 2 diabetes mellitus without complications (4) Anemia of chronic disease: CODE(S): D63.8 - Anemia in other chronic diseases classified elsewhere (5) Anticoagulant long-term use: CODE(S): Z79.01 - superintendent [employer] (current) use of anticoagulants (6) On rivaroxaban therapy: CODE(S): Z79.01 - superintendent [employer] (current) use of anticoagulants (7) Obesity: CODE(S): E66.9 - Obesity, unspecified (8) Lymphedema of both lower extremities: CODE(S): I89.0 - Lymphedema, not elsewhere classified PLAN: Plan Continure with Dakin's dressing changes followed by a Tubigrip and a compression mc wrap for the left medial leg ulcer. When a double mc wrap is available, may stop the Tubigrip. If healing is slowed, will culture the ulcer. A positive culture will necessitate antibiotic therapy. Lymphedema is slowly improving. With her lymphedema, additional compression may be necessary with [place] wraps. Stressed importance keeping legs elevated when sitting. Encouraged to sleep in a bed laying flat. Prealbumin was 12.5 on 04/20/23. Continue nutritional supplementation with protein to help the healing process. Patient is obese and has moderate swelling that can be problematic as it will slow down healing. Hgb was 7.3 at discharge on 09/06/23. Had PRBC while hospitalized. Recent Hgb on 09/22/23 was 7.6. She is on Iron Supplementation. Will monitor closely. If there is a plateau during the healing process which is likely secondary to the swelling at this time, then we can always proceed with delayed closure with skin grafting. Or may try advanced skin substitute grafts which are applied at the Wound Center. Would like to see more granulation tissue and less exudate present in the ulcer before proceeding with the advanced skin substitute grafts. She would really benefit from compression pumps due to the severity of her edema/lymphedema, even with her wearing consistent compression. Awaiting approval from the insurance for compression pumps for her lymphedema/edema. Followup one week.
[2023-10-27 14:06] VITALS: BP 155/49; PULSE 68; RESP 20; TEMP 36.1; BMI 46.6
--- NOTE | 2023-10-27 15:32 | PCM.WC.PN ---
History of Present Illness Date of Service: 10/27/23 Chief Complaint: Nonhealing hematoma ulcer left knee History of Wound: Patient fell on 09/01/23 and developed a LEFT proximal leg hematoma. Had surgery on 09/03/23 for Evacuation of hematoma with wound VAC placement by Dr. Lockwood. Wound VAC placed on 09/06/23. Operative culture positive for MSSA. Treated with Keflex that she completed 09/13/23. Acute on chronic anemia that she required transfusion of 3 units of PRBCs. Hgb on was 7.3. Repeat Hgb on 09/22/23 was 7.6. Venous studies done on 08/13/23 - Sapheno-femoral junctions are bilaterally incompetent . Segmental valvular incompetence is noted within the great saphenous veins bilaterally. The right small saphenous vein is patent and incompetent. The accessory saphenous vein at the right knee is incompetent. Two accessory saphenous veins in the left mid-thigh are incompetent. An accessory saphenous vein at the left knee is incompetent. An incompetent geospatial information technologist vein is noted in the right calf, located 5 centimeters proximal to the right medial malleolus. Pulsatile flow is noted in the deep venous system bilaterally, which may be indicative of elevated central venous pressure (i.e. congestive heart failure, pulmonary hypertension, etc.). Clinical correlation is advised. Arterial studies obtained 08/13/23 - Biphasic and triphasic Doppler waveforms are noted at ankle level on the right. Triphasic Doppler waveforms are noted at ankle level on the left. Pulse-volume recordings appear diminished at digital level on the left, but satisfactory at all other levels bilaterally. Resting ankle-brachial indices are normal bilaterally. The right digital-brachial index is mildly diminished. The left digital-brachial index is low-normal. Arterial flow appears normal at ankle level bilaterally. 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 Right JEFFREY - 1.00, left JEFFREY - 1.18. Wound care - Dakin's. The VAC was returned. Today she denies fever. Her appetite is ok. Progress of Wound: Improved with good granulation tissue. The surrounding lymphedema is improving slowly. Some exudate still present superiorly. Objective Data Objective Data Vital Signs: Vital Signs Temp Pulse Resp BP O2 Del Method 97 F L 68 20 H 155/49 H Room Air 10/27/23 14:06 10/27/23 14:06 10/27/23 14:06 10/27/23 14:06 10/18/23 15:25 Oxygen Delivery Method Room Air Weight: 307 lb Body Mass Index (BMI) 46.6 Prealbumin was 12.5 on 04/20/23.? Continue nutritional supplementation with protein to help the healing process. Lab / Micro Data Attestation: I reviewed the patient's lab results. Lab results narrative: Hgb was 7.3 at discharge on 09/06/23. She received PRBC while in hospital. On 09/22/23 the Hgb was 7.6. Will continue to monitor. She is on Iron supplementation. Charges/Coding Procedures Integumentary [id number]: 04084 Zita subq tissue 20 sq cm/< (ICD-10 - L97.922, S80.12xA, E11.9, D63.8, Z79.01, E66.9, I89.0) Add On Codes: 48052 Zita subq tissue add-on (x2 Units) (ICD-10 - L97.922, S80.12xA, E11.9, D63.8, Z79.01, E66.9, I89.0) Debridement Note Debridement Note Wound debrided: #4 Left medial leg. Laterality: Left Wound Grade/Stage: 2. Type of Debridement: Excisional debridement Anesthesia Used: 5% Lidocaine Gel Depth: Down to and including healthy tissue and in the subcutaneous layer Percentage of wound debrided: 100 Instrument Used: 5mm curette Tissue Removed: subcutaneous tissue. Severity: Fat Layer Exposed Amount of bleeding with debridement: Mild Bleeding Controlled with: Pressure and Compression and gauze Patient tolerated procedure: Patient tolerated procedure well Post-Debridement Measurements and Additional Note: Post-Debridement Measurements/Treatment WC - Nurse 1 - General Ulcer Assessment Start: 10/04/23 15:24 Freq: Status: Active Protocol: USHA Activity Type Activity Date Activity User E-sign Co-sign Detail Recorded Client Recorded Date Recorded By Document 10/04/23 15:24 BMF Desktop 10/04/23 15:38 BMF Document 10/11/23 15:00 DL Desktop 10/11/23 15:08 DL Document 10/18/23 15:25 BMF Desktop 10/18/23 15:28 BMF Edit Result 10/18/23 15:25 BMF (1) Desktop 10/18/23 15:30 BMF Document 10/27/23 14:06 DL Desktop 10/27/23 14:12 DL (1) Pulse Rate (60-100) => 62 Respiratory Rate (12-18) => 20 H Blood Pressure (90/60-120/80) => 164/54 H Blood Pressure Mean (mm Hg) => 90 10/04/23 10/11/23 10/18/23 15:24 15:00 15:25 WC - Today's Visit Information Type of service Follow-up Visit Follow-up Visit Follow-up Visit (Physician/PRINT INSPECTOR (Physician/PRINT INSPECTOR (Physician/PRINT INSPECTOR ) ) ) Arrival Mode Ambulatory, Ambulatory Ambulatory, Walker Walker Transfer Assistance None None Accompanied by daughter DAUGHTER Patient Identification Verified (Name & Yes Yes Yes ) Patient Requires Transmission-Based No No Precautions Finger Stick Blood Sugar(mg/dl) (if indicated): Blood Sugar Height and Weight Body Mass Index (BMI) 46.6 46.6 46.6 BMI Classification Obese Obese Obese Vital Signs Temperature (97.8 F-99.1 F) 96.8 F L 96.8 F L 97.2 F L Temperature Source Temporal Temporal Temporal Pulse Rate (60-100) 62 72 62 Pulse Location Monitor Monitor Monitor Respiratory Rate (12-18) 16 20 H 20 H Respiratory rate source Observation Observation Observation Oxygen Delivery Method Room Air Room Air Blood Pressure (90/60-120/80) 189/60 H 155/53 H 164/54 H Blood Pressure Mean (mm Hg) 103 87 90 Source Monitor Monitor Monitor Position Sitting Semi-Fowlers Blood Pressure Location Left Forearm Left Arm History Since Last Visit- (Skip if this is Patient's initial visit) Have you changed medications since your No No No last visit? Any new allergies or adverse reactions No No No Had a fall/change in ADL's that may No No No increase risk of falls Signs or symptoms of abuse and/or No No No neglect since last visit Have you been in the hospital since your No No No last visit? Has dressing in place as prescribed Yes Yes Yes Has compression in place as prescribed Yes Yes Yes Has offloadiing in place as prescribed N/A N/A N/A Experienced any changes in pain level or No No No management Left Footwear Regular Shoe Regular Shoe Right Footwear Regular Shoe Regular Shoe Pain Scale: 0-10 Numeric Is Patient Pain Free? Yes Yes Yes 10/27/23 14:06 - Today's Visit Information Type of service Follow-up Visit (Physician/PRINT INSPECTOR ) Arrival Mode Ambulatory, Walker Transfer Assistance None Accompanied by Patient Identification Verified (Name & Yes ) Patient Requires Transmission-Based No Precautions Finger Stick Blood Sugar(mg/dl) (if 192 indicated): Blood Sugar Stated by Patient Height and Weight Body Mass Index (BMI) 46.6 BMI Classification Obese Vital Signs Temperature (97.8 F-99.1 F) 97 F L Temperature Source Temporal Pulse Rate (60-100) 68 Pulse Location Monitor Respiratory Rate (12-18) 20 H Respiratory rate source Oxygen Delivery Method Blood Pressure (90/60-120/80) 155/49 H Blood Pressure Mean (mm Hg) 84 Source Monitor Position Blood Pressure Location History Since Last Visit- (Skip if this is Patient's initial visit) Have you changed medications since your No last visit? Any new allergies or adverse reactions No Had a fall/change in ADL's that may No increase risk of falls Signs or symptoms of abuse and/or No neglect since last visit Have you been in the hospital since your No last visit? Has dressing in place as prescribed Yes Has compression in place as prescribed Yes Has offloadiing in place as prescribed Yes Experienced any changes in pain level or No management Left Footwear Right Footwear Pain Scale: 0-10 Numeric Is Patient Pain Free? Yes - Nurse 1 - General Ulcer Measurement Start: 10/04/23 15:24 Freq: Status: Active Protocol: Activity Type Activity Date Activity User E-sign Co-sign Detail Recorded Client Recorded Date Recorded By Document 10/04/23 15:24 BMF Desktop 10/04/23 15:38 BMF Document 10/11/23 15:00 DL Desktop 10/11/23 15:08 DL Document 10/18/23 15:25 [facility] Desktop 10/18/23 15:28 BMF Document 10/27/23 14:06 DL Desktop 10/27/23 14:12 DL 10/04/23 10/11/23 10/18/23 15:24 15:00 15:25 Wound Center Nurse 1 4-left medial leg -Combined with other wound No -Current Size (cm) - Length 9.6 9.5 9.1 -Current Size (cm) - Width 6.9 7.3 5.6 -Current Size (cm) - Depth 0.9 0.7 1.1 -Total Square Cm 66.24 69.35 50.96 -Date of Last Picture (Recall this 10/18/23 field) -Photo Taken Yes Yes -Tunneling No -Undermining/Tunneling No -Circular Undermining No -Exudate Amt Large Medium Medium -Exudate Type Serosanguineous Serosanguineous Serosanguineous -Wound Margin Distinct, Distinct, Distinct, Outline Outline Outline Attached Attached Attached -Granulation Amt Medium (34-66%) Medium (34-66%) Large (67-100%) -Granulation Quality Red Red Red -Slough/Fibrin Yes -Necrosis Amt Medium (34-66%) Medium (34-66%) Small (1-33%) -Necrotic Tissue Type Adherent Slough Adherent Slough Adherent Slough -Structure Exposed N/A -Texture (Miroslava-wound Skin Appearance) Assessed, Scarring Assessed Localized Edema ,Scarring -Moisture (Miroslava-wound Skin Appearance) Assessed,Dry/ No Abnormality Assessed Scaly -Color (Miroslava-wound Skin Appearance) Assessed, Hemosiderin Assessed, Erythema Staining Erythema -Temperature (Miroslava-wound Skin No Abnormality No Abnormality Appearance) (Pt Warm) (Pt Warm) -Tenderness on Palpation (Miroslava-wound No No Skin Appearance) -Ulcer Cleansing Soap and Water Soap and Water Soap and Water -Foul Odor after Cleansing No No No -Anesthetic Used 4% Lidocaine 4% Lidocaine 4% Lidocaine Solution Solution Solution Lower Limb Edema Present Yes Left Calf (cm) 57.3 52.1 Left Ankle (cm) 30 30.4 10/27/23 14:06 Wound Center Nurse 1 4-left medial leg -Combined with other wound -Current Size (cm) - Length 7.7 -Current Size (cm) - Width 6.7 -Current Size (cm) - Depth 0.4 -Total Square Cm 51.59 -Date of Last Picture (Recall this field) -Photo Taken -Tunneling -Undermining/Tunneling -Circular Undermining -Exudate Amt Medium -Exudate Type Serosanguineous -Wound Margin Distinct, Outline Attached -Granulation Amt Large (67-100%) -Granulation Quality Red -Slough/Fibrin -Necrosis Amt Small (1-33%) -Necrotic Tissue Type Adherent Slough -Structure Exposed -Texture (Miroslava-wound Skin Appearance) Excoriation, Scarring -Moisture (Miroslava-wound Skin Appearance) Dry/Scaly -Color (Miroslava-wound Skin Appearance) Hemosiderin Staining -Temperature (Miroslava-wound Skin No Abnormality Appearance) (Pt Warm) -Tenderness on Palpation (Miroslava-wound No Skin Appearance) -Ulcer Cleansing Soap and Water -Foul Odor after Cleansing No -Anesthetic Used 4% Lidocaine Solution Lower Limb Edema Present Left Calf (cm) 51 Left Ankle (cm) 28.5 WC - Nurse 2 - General Ulcer CM Notes Start: 10/04/23 15:24 Freq: Status: Active Protocol: Activity Type Activity Date Activity User E-sign Co-sign Detail Recorded Client Recorded Date Recorded By Document 10/04/23 15:55 Quizrr Laptop 10/04/23 16:01 Document 10/11/23 15:26 Quizrr Laptop 10/11/23 15:30 JF Document 10/18/23 15:38 JF Laptop 10/18/23 15:43 Document 10/27/23 14:42 MW Desktop 10/27/23 14:49 MW 10/04/23 10/11/23 10/18/23 15:55 15:26 15:38 Wound Center Nurse 2 4-left medial leg -Time 15:55 15:26 15:39 -Correct Patient Yes Yes Yes -Correct Side, Site, Position Yes Yes Yes -Correct Procedure Yes Yes Yes -Procedure Performed Yes Yes Yes -Type of Procedure Debridement Debridement Debridement -Clinical Debridement Muscle / Fascia Muscle / Fascia Subcutaneous -Tissue Removed Muscle,Fascia Muscle,Fascia Subcutaneous -Post Debridement (cm) - Length 9.6 9.5 8.8 -Post Debridement (cm) - Width 7 7.4 7.4 -Post Debridement (cm) - Depth 1.0 0.8 0.8 -Total Square (Post) (cm) 67.2 70.30 65.12 -Area of Debridement (cm) - Length 9.6 9.5 8.8 -Area of Debridement (cm) - Width 7.0 7.4 7.4 -Total Square (Area) (cm) 67.20 70.30 65.12 -Tunneling No No No -Undermining/Tunneling No No No -Circular Undermining No No No -Wound/Ulcer Outcome Not Healed Not Healed Not Healed -Ulcer Cleansing Rinsed/ Rinsed/ Rinsed/ Irrigated with Irrigated with Irrigated with Saline Saline Saline -Foul Odor after Cleansing No No No -Bioengineered Tissue No No No -Bleeding Controlled with Pressure Pressure Pressure -Treatment Response Procedure Procedure Procedure Tolerated Well Tolerated Well Tolerated Well -Offloading No No No -Debridement - Subq, 1st 20sq cm Yes -Debridement, SubQ, ea addt'l 20sq cm 3 or part thereof -Debridement - Muscle / Fascia, 1st Yes Yes 20sq cm -Debridement, Muscle/Fascia, ea addt'l 3 3 20sq cm or part thereof Pain Scale: 0-10 Numeric Is Patient Pain Free? Yes Yes Yes 10/27/23 14:42 Wound Center Nurse 2 4-left medial leg -Time 14:44 -Correct Patient Yes -Correct Side, Site, Position Yes -Correct Procedure Yes -Procedure Performed Yes -Type of Procedure Debridement -Clinical Debridement Subcutaneous -Tissue Removed Subcutaneous -Post Debridement (cm) - Length 6.0 -Post Debridement (cm) - Width 8.0 -Post Debridement (cm) - Depth 0.5 -Total Square (Post) (cm) 48.00 -Area of Debridement (cm) - Length 6.0 -Area of Debridement (cm) - Width 8.0 -Total Square (Area) (cm) 48.00 -Tunneling No -Undermining/Tunneling No -Circular Undermining No -Wound/Ulcer Outcome Not Healed -Ulcer Cleansing Rinsed/ Irrigated with Saline -Foul Odor after Cleansing No -Bioengineered Tissue No -Bleeding Controlled with Pressure -Treatment Response Procedure Tolerated Well -Offloading No -Debridement - Subq, 1st 20sq cm Yes -Debridement, SubQ, ea addt'l 20sq cm 2 or part thereof -Debridement - Muscle / Fascia, 1st 20sq cm -Debridement, Muscle/Fascia, ea addt'l 20sq cm or part thereof Pain Scale: 0-10 Numeric Is Patient Pain Free? Yes WC - Nurse 3 - General Ulcer D/C NN Start: 10/04/23 15:24 Freq: Status: Active Protocol: Activity Type Activity Date Activity User E-sign Co-sign Detail Recorded Client Recorded Date Recorded By Document 10/04/23 16:11 DL Desktop 10/04/23 16:14 DL Document 10/11/23 15:38 KW Desktop 10/11/23 15:39 KW Document 10/18/23 15:50 BMF Desktop 10/18/23 15:50 BMF Document 10/27/23 15:00 DL Desktop 10/27/23 15:01 DL 10/04/23 10/11/23 10/18/23 16:11 15:38 15:50 Wound Care Center Nurse 3 4-left medial leg -Ulcer Cleansing Rinsed/ Irrigated with Saline -Foul Odor after Cleansing No -Primary Dressing Applied Optilok 6.5x10 Optilok 8x12 -Other Dressing dakins -Primary Dressing Covered/Secured with Dry Gauze & Dry Gauze & Dry Gauze & Roll Gauze, Roll Gauze, Roll Gauze, Secured with Secured with Secured with Tape Tape Tape -Optilok 6.5x10 1 -Optilok 8x12 1 Left -Compression Wrap Cm Wrap duke -Compression Wrap Mc Wrap Mc Wrap Treatment Response Procedure Tolerated Well Pain Scale: 0-10 Numeric Is Patient Pain Free? Yes Yes Yes WC - Visit Discharge Discharge Condition Stable Stable Stable Ambulatory Status Ambulatory Ambulatory, Ambulatory, Walker Walker Transportation Private Auto Private Auto Private Auto Medication Reconcilliation completed & No No provided to patient/care provider Clinical Summary of Care Provided Yes Yes Facility Type Home Health Orders Sent Yes 10/27/23 15:00 Wound Care Center Nurse 3 4-left medial leg -Ulcer Cleansing Rinsed/ Irrigated with Saline -Foul Odor after Cleansing No -Primary Dressing Applied -Other Dressing dakins -Primary Dressing Covered/Secured with -Optilok 6.5x10 -Optilok 8x12 Left -Compression Wrap Mc Wrap duke -Compression Wrap Treatment Response Procedure Tolerated Well Pain Scale: 0-10 Numeric Is Patient Pain Free? Yes WC - Visit Discharge Discharge Condition Stable Ambulatory Status Ambulatory, Walker Transportation Private Auto Medication Reconcilliation completed & provided to patient/care provider Clinical Summary of Care Provided Facility Type Home Health Orders Sent Yes Assessment/Plan Assessment/Plan (1) Ulcer of left lower extremity with fat layer exposed: CODE(S): L97.922 - Non-pressure chronic ulcer of unspecified part of left lower leg with fat layer exposed (2) Hematoma of left lower leg: CODE(S): S80.12XA - Contusion of left lower leg, initial encounter (3) DM type 2, goal HbA1c < 7%: CODE(S): E11.9 - Type 2 diabetes mellitus without complications (4) Anemia of chronic disease: CODE(S): D63.8 - Anemia in other chronic diseases classified elsewhere (5) Anticoagulant long-term use: CODE(S): Z79.01 - detention (current) use of anticoagulants (6) On rivaroxaban therapy: CODE(S): Z79.01 - terminal clerk (current) use of anticoagulants (7) Obesity: CODE(S): E66.9 - Obesity, unspecified (8) Lymphedema of both lower extremities: CODE(S): I89.0 - Lymphedema, not elsewhere classified PLAN: Plan Continue with Dakin's dressing changes followed by a Tubigrip and a compression mc wrap for the left medial leg ulcer. When a double mc wrap is available, may stop the Tubigrip. If healing is slowed, will culture the ulcer. A positive culture will necessitate antibiotic therapy. Lymphedema is slowly improving. With her lymphedema, additional compression may be necessary with [place]arrow wraps. Stressed importance keeping legs elevated when sitting. Encouraged to sleep in a bed laying flat. Prealbumin was 12.5 on 04/20/23. Continue nutritional supplementation with protein to help the healing process. Patient is obese and has moderate swelling that can be problematic as it will slow down healing. Hgb was 7.3 at discharge on 09/06/23. Had PRBC while hospitalized. Recent Hgb on 09/22/23 was 7.6. She is on Iron Supplementation. Will monitor closely. If there is a plateau during the healing process which is likely secondary to the swelling at this time, then we can always proceed with delayed closure with skin grafting. Or may try advanced skin substitute grafts which are applied at the Wound Center. Would like to see more granulation tissue and less exudate present in the ulcer before proceeding with the advanced skin substitute grafts. Would culture the wound before proceeding with the advanced skin substitute grafts. She would really benefit from compression pumps due to the severity of her edema/lymphedema, even with her wearing consistent compression. Awaiting approval from the insurance for compression pumps for her lymphedema/edema. Followup one week.
== END 2023-10-27 23:59 | disposition home or self-care (01) ==
LOC: WC 14:00
PROVIDERS: Referring Provider Surgery; Visit Provider Surgery
DX: L97.925 Non-pressure chronic ulcer of unspecified part of left lower leg with muscle involvement without evidence of necrosis (principal); E11.9 Type 2 diabetes mellitus without complications; S80.12XA Contusion of left lower leg, initial encounter; D63.8 Anemia in other chronic diseases classified elsewhere; Z79.01 Long term (current) use of anticoagulants; E66.9 Obesity, unspecified; I89.0 Lymphedema, not elsewhere classified
CPT/HCPCS: 11042; 11043; 11045; 11046

== ENCOUNTER 2023-11-22 13:00 | Outpatient (RCR) | payer MEDICARE, SELFPAY ==
[2023-10-28 00:23] VITALS: BP 155/49; PULSE 68; RESP 20; TEMP 36.1; BMI 46.6
[2023-11-01 14:23] VITALS: BP 184/66; PULSE 61; RESP 18; TEMP 35.6; BMI 46.6
--- NOTE | 2023-11-01 16:05 | PN.PCM_ITS ---
History of Present Illness Date of Service: 11/01/23 Chief Complaint: Nonhealing hematoma ulcer left knee History of Wound: Patient fell on 09/01/23 and developed a LEFT proximal leg hematoma. Had surgery on 09/03/23 for Evacuation of hematoma with wound VAC placement by Dr. Lockwood. Wound VAC placed on 09/06/23. Operative culture positive for MSSA. Treated with Keflex that she completed 09/13/23. Acute on chronic anemia that she required transfusion of 3 units of PRBCs. Hgb on was 7.3. Repeat Hgb on 09/22/23 was 7.6. Venous studies done on 08/13/23 - Sapheno-femoral junctions are bilaterally incompetent . Segmental valvular incompetence is noted within the great saphe nous veins bilaterally. The right small saphenous vein is patent and incompetent. The accessory saphenous vein at the right knee is incompetent. Two accessory saphenous veins in the left mid-thigh are incompetent. An accessory saphenous vein at the left knee is incompetent. An incompetent wheel and caster repairer vein is noted in the right calf, located 5 centimeters proximal to the right medial malleolus. Pulsatile flow is noted in the deep venous system bilaterally, which may be indicative of elevated central venous pressure (i.e. congestive heart failure, pulmonary hypertension, etc.). Clinical correlation is advised. Arterial studies obtained 08/13/23 - Biphasic and triphasic Doppler waveforms are noted at ankle level on the right. Triphasic Doppler waveforms are noted at ankle level on the left. Pulse-volume recordings appear diminished at digital level on the left, but satisfactory at all other levels bilaterally. Resting ankle-brachial indices are normal bilaterally. The right digital-brachial index is mildly diminished. The left digital-brachial index is low-normal. Arterial flow appears normal at ankle level bilaterally. 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 Right JEFFREY - 1.00, left JEFFREY - 1.18. Wound care - Dakin's. The VAC was returned. Today she denies fever. Her appetite is ok. Progress of Wound: Improved with more granulation tissue present. Objective Data Objective Data Vital Signs: Vital Signs Temp Pulse Resp BP O2 Del Method 96.0 F L 61 18 184/66 H Room Air 11/01/23 14:23 11/01/23 14:23 11/01/23 14:23 11/01/23 14:23 11/01/23 14:23 Oxygen Delivery Method Room Air Weight: 307 lb Body Mass Index (BMI) 46.6 Prealbumin was 12.5 on 04/20/23.? Continue nutritional supplementation with protein to help the healing process. Lab / Micro Data Attestation: I reviewed the patient's lab results. Lab results narrative: Hgb was 7.3 at discharge on 09/06/23. She received PRBC while in hospital. On 09/22/23 the Hgb was 7.6. Will continue to monitor. She is on Iron supplementation. Micro: Microbiology 11/01/23 14:55 Wound - Knee Gram Stain - Final 11/01/23 14:55 Wound - Knee Wound Culture - Preliminary Staphylococcus aureus Charges/Coding Procedures Integumentary 111xxx-113xx: 95554 Ztia subq tissue 20 sq cm/< (ICD-10 - L97.922, S80.12xA, E11.9, D63.8, Z79.01, E66.9, I89.0) Add On Codes: 54202 Zita subq tissue add-on (x2 Units) (ICD-10 - L97.922, S80.12xA, E11.9, D63.8, Z79.01, E66.9, I89.0) Debridement Note Debridement Note Wound debrided: #4 Left medial leg. Laterality: Left Wound Grade/Stage: 2. Type of Debridement: Excisional debridement Anesthesia Used: 5% Lidocaine Gel Depth: Down to and including healthy tissue and in the subcutaneous layer Percentage of wound debrided: 100 Instrument Used: 5mm curette Tissue Removed: subcutaneous tissue. Severity: Fat Layer Exposed Amount of bleeding with debridement: Mild Bleeding Controlled with: Pressure and Compression and gauze Patient tolerated procedure: Patient tolerated procedure well and - (A wound culture was obtained today.) Post-Debridement Measurements and Additional Note: Post-Debridement Measurements/Treatment WC - Nurse 1 - General Ulcer Assessment Start: 11/01/23 14:23 Freq: Status: Active Protocol: [email or web address] Activity Type Activity Date Activity User E-sign Co-sign Detail Recorded Client Recorded Date Recorded By Document 11/01/23 14:23 KW Desktop 11/01/23 14:27 KW Edit Result 11/01/23 14:23 KW (1) Desktop 11/01/23 14:28 KW (1) Pulse Rate (60-100) => 61 Blood Pressure (90/60-120/80) => 184/66 H Blood Pressure Mean (mm Hg) => 105 11/01/23 14:23 WC - Today's Visit Information Type of service Follow-up Visit (Physician/CLINICAL NURSE SPECIALIST ) Arrival Mode Ambulatory, Walker Accompanied by daughter Patient Identification Verified (Name & Yes ) Height and Weight Body Mass Index (BMI) 46.6 BMI Classification Obese Vital Signs Temperature (97.8 F-99.1 F) 96.0 F L Temperature Source Temporal Pulse Rate (60-100) 61 Pulse Location Monitor Respiratory Rate (12-18) 18 Respiratory rate source Observation Oxygen Delivery Method Room Air Blood Pressure (90/60-120/80) 184/66 H Blood Pressure Mean (mm Hg) 105 Source Monitor Position Semi-Fowlers Blood Pressure Location Left Arm History Since Last Visit- (Skip if this is Patient's initial visit) Have you changed medications since your No last visit? Any new allergies or adverse reactions No Had a fall/change in ADL's that may No increase risk of falls Signs or symptoms of abuse and/or No neglect since last visit Have you been in the hospital since your No last visit? Has dressing in place as prescribed Yes Has compression in place as prescribed Yes Has offloadiing in place as prescribed N/A Experienced any changes in pain level or No management Left Footwear Regular Shoe Right Footwear Regular Shoe Pain Scale: 0-10 Numeric Is Patient Pain Free? Yes WC - Nurse 1 - General Ulcer Measurement Start: 11/01/23 14:23 Freq: Status: Active Protocol: Activity Type Activity Date Activity User E-sign Co-sign Detail Recorded Client Recorded Date Recorded By Document 11/01/23 14:23 KW Desktop 11/01/23 14:27 KW 11/01/23 14:23 Wound Center Nurse 1 4-left medial leg -Current Size (cm) - Length 8.1 -Current Size (cm) - Width 6.6 -Current Size (cm) - Depth 0.3 -Total Square Cm 53.46 -Date of Last Picture (Recall this 11/01/23 field) -Photo Taken Yes -Exudate Amt Large -Exudate Type Serosanguineous -Wound Margin Distinct, Outline Attached -Granulation Amt Large (67-100%) -Granulation Quality Red -Texture (Miroslava-wound Skin Appearance) Assessed -Moisture (Miroslava-wound Skin Appearance) Assessed, Weeping -Color (Miroslava-wound Skin Appearance) Assessed, Erythema -Temperature (Miroslava-wound Skin No Abnormality Appearance) (Pt Warm) -Ulcer Cleansing Soap and Water -Foul Odor after Cleansing No -Anesthetic Used 4% Lidocaine Solution Left Calf (cm) 57 Left Ankle (cm) 29.6 WC - Nurse 2 - General Ulcer CM Notes Start: 11/01/23 14:23 Freq: Status: Active Protocol: Activity Type Activity Date Activity User E-sign Co-sign Detail Recorded Client Recorded Date Recorded By Document 11/01/23 16:26 PL [id number] 11/01/23 16:27 PL 11/01/23 16:26 Wound Center Nurse 2 4-left medial leg -Time 14:50 -Correct Patient Yes -Correct Side, Site, Position Yes -Correct Procedure Yes -Procedure Performed Yes -Type of Procedure Debridement -Clinical Debridement Subcutaneous -Tissue Removed Subcutaneous -Post Debridement (cm) - Length 5.5 -Post Debridement (cm) - Width 7.5 -Post Debridement (cm) - Depth 0.1 -Total Square (Post) (cm) 41.25 -Area of Debridement (cm) - Length 5.5 -Area of Debridement (cm) - Width 7.5 -Total Square (Area) (cm) 41.25 -Tunneling No -Undermining/Tunneling No -Circular Undermining No -Wound/Ulcer Outcome Not Healed -Ulcer Cleansing Rinsed/ Irrigated with Saline -Foul Odor after Cleansing No -Bioengineered Tissue No -Bleeding Controlled with NA -Treatment Response Procedure Tolerated Well -Debridement - Subq, 1st 20sq cm Yes -Debridement, SubQ, ea addt'l 20sq cm 2 or part thereof Pain Scale: 0-10 Numeric Is Patient Pain Free? Yes Assessment/Plan Assessment/Plan (1) Ulcer of left lower extremity with fat layer exposed: CODE(S): L97.922 - Non-pressure chronic ulcer of unspecified part of left lower leg with fat layer exposed (2) Hematoma of left lower leg: CODE(S): S80.12XA - Contusion of left lower leg, initial encounter (3) DM type 2, goal HbA1c < 7%: CODE(S): E11.9 - Type 2 diabetes mellitus without complications (4) Anemia of chronic disease: CODE(S): D63.8 - Anemia in other chronic diseases classified elsewhere (5) Anticoagulant long-term use: CODE(S): Z79.01 - [facility] (current) use of anticoagulants (6) On rivaroxaban therapy: CODE(S): 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 When a double tashia wrap is available, may stop the Tubigrip. More granulation tissue present. Minimal exudate present. A wound culture was obtained today. A positive culture will necessitate antibiotic therapy. Lymphedema is slowly improving. With her lymphedema, additional compression may be necessary with Farrow wraps. Stressed importance keeping legs elevated when sitting. Encouraged to sleep in a bed laying flat. Prealbumin was 12.5 on 04/20/23. Continue nutritional supplementation with protein to help the healing process. Patient is obese and has moderate swelling that can be problematic as it will slow down healing. Hgb was 7.3 at discharge on 09/06/23. Had PRBC while hospitalized. Recent Hgb on 09/22/23 was 7.6. She is on Iron Supplementation. Will monitor closely. Since most of the ulcer shows granulation tissue and minimal exudate, will apply for advanced skin substitute grafts which are applied at the wound center. She would really benefit from compression pumps due to the severity of her edema/lymphedema, even with her wearing consistent compression. Followup one week.
[2023-11-08 13:27] VITALS: BP 142/70; PULSE 71; RESP 18; TEMP 36.5; BMI 46.6
--- NOTE | 2023-11-08 14:08 | PN.PCM_ITS ---
History of Present Illness Date of Service: 11/08/23 Chief Complaint: Nonhealing hematoma ulcer left knee History of Wound: Patient fell on 09/01/23 and developed a LEFT proximal leg hematoma. Had surgery on 09/03/23 for Evacuation of hematoma with wound VAC placement by Dr. Lockwood. Wound VAC placed on 09/06/23. Operative culture positive for MSSA. Treated with Keflex that she completed 09/13/23. Acute on chronic anemia that she required transfusion of 3 units of PRBCs. Hgb on was 7.3. Repeat Hgb on 09/22/23 was 7.6. Venous studies done on 08/13/23 - Sapheno-femoral junctions are bilaterally incompetent . Segmental valvular incompetence is noted within the great saphe nous veins bilaterally. The right small saphenous vein is patent and incompetent. The accessory saphenous vein at the right knee is incompetent. Two accessory saphenous veins in the left mid-thigh are incompetent. An accessory saphenous vein at the left knee is incompetent. An incompetent rn correctional vein is noted in the right calf, located 5 centimeters proximal to the right medial malleolus. Pulsatile flow is noted in the deep venous system bilaterally, which may be indicative of elevated central venous pressure (i.e. congestive heart failure, pulmonary hypertension, etc.). Clinical correlation is advised. Arterial studies obtained 08/13/23 - Biphasic and triphasic Doppler waveforms are noted at ankle level on the right. Triphasic Doppler waveforms are noted at ankle level on the left. Pulse-volume recordings appear diminished at digital level on the left, but satisfactory at all other levels bilaterally. Resting ankle-brachial indices are normal bilaterally. The right digital-brachial index is mildly diminished. The left digital-brachial index is low-normal. Arterial flow appears normal at ankle level bilaterally. 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 Right JEFFREY - 1.00, left JEFFREY - 1.18. Wound care - Dakin's. Awaiting medical approval for placement of advanced skin substitute grafts such as Thera-Skin. A wound culture was obtained on 11/01/23. It was positive for Staphylococcus aureus. Will start her on Augmentin. Today she denies fever. Her appetite is ok. Progress of Wound: Improved. Objective Data Objective Data Vital Signs: Vital Signs Temp Pulse Resp BP O2 Del Method 97.7 F L 71 18 142/70 H Room Air 11/08/23 13:27 11/08/23 13:27 11/08/23 13:11/08/23 13:11/08/23 13:27 Oxygen Delivery Method Room Air Weight: 307 lb Body Mass Index (BMI) 46.6 Prealbumin was 12.5 on 04/20/23.? Continue nutritional supplementation with protein to help the healing process. Lab / Micro Data Attestation: I reviewed the patient's lab results. Lab results narrative: Hgb was 7.3 at discharge on 09/06/23. She received PRBC while in hospital. On 09/22/23 the Hgb was 7.6. Will continue to monitor. She is on Iron supplementation. Micro: Microbiology 11/01/23 14:55 Wound - Knee Gram Stain - Final 11/01/23 14:55 Wound - Knee Wound Culture - Final Staphylococcus aureus 11/01/23 14:55 Wound - Knee Anaerobic Culture - Final No anaerobic bacteria isolated. Charges/Coding Procedures Integumentary 111xxx-113xx: 58886 Zita subq tissue 20 sq cm/< (ICD-10 - L97.922, S80.12xA, E11.9, D63.8, Z79.01, E66.9, I89.0) Add On Codes: 89141 Zita subq tissue add-on (x2 Units) (ICD-10 - L97.922, S80.12xA, E11.9, D63.8, Z79.01, E66.9, I89.0) Debridement Note Debridement Note Wound debrided: #4 Left medial leg. Laterality: Left Wound Grade/Stage: 2. Type of Debridement: Excisional debridement Anesthesia Used: 5% Lidocaine Gel Depth: Down to and including healthy tissue and in the subcutaneous layer Percentage of wound debrided: 100 Instrument Used: 5mm curette Tissue Removed: subcutaneous tissue. Severity: Fat Layer Exposed Amount of bleeding with debridement: Mild Bleeding Controlled with: Pressure and Compression and gauze Patient tolerated procedure: Patient tolerated procedure well Post-Debridement Measurements and Additional Note: Post-Debridement Measurements/Treatment AMBREEN - Nurse 1 - General Ulcer Assessment Start: 11/01/23 14:23 Freq: Status: Active Protocol: GWENT Activity Type Activity Date Activity User E-sign Co-sign Detail Recorded Client Recorded Date Recorded By Document 11/01/23 14:23 KW Desktop 11/01/23 14:27 KW Edit Result 11/01/23 14:23 KW (1) Desktop 11/01/23 14:28 KW Document 11/08/23 13:27 JF Laptop 11/08/23 13:32 JF (1) Pulse Rate (60-100) => 61 Blood Pressure (90/60-120/80) => 184/66 H Blood Pressure Mean (mm Hg) => 105 11/01/23 11/08/23 14:23 13:27 - Today's Visit Information Type of service Follow-up Visit Follow-up Visit (Physician/EDIPHONE OPERATOR (Physician/EDIPHONE OPERATOR ) ) Arrival Mode Ambulatory, Ambulatory, Walker Walker Accompanied by daughter Patient Identification Verified (Name & Yes Yes ) Height and Weight Body Mass Index (BMI) 46.6 46.6 BMI Classification Obese Obese Vital Signs Temperature (97.8 F-99.1 F) 96.0 F L 97.7 F L Temperature Source Temporal Temporal Pulse Rate (60-100) 61 71 Pulse Location Monitor Monitor Respiratory Rate (12-18) 18 18 Respiratory rate source Observation Observation Oxygen Delivery Method Room Air Room Air Blood Pressure (90/60-120/80) 184/66 H 142/70 H Blood Pressure Mean (mm Hg) 105 94 Source Monitor Monitor Position Semi-Fowlers Semi-Fowlers Blood Pressure Location Left Arm Left Arm History Since Last Visit- (Skip if this is Patient's initial visit) Have you changed medications since your No No last visit? Any new allergies or adverse reactions No No Had a fall/change in ADL's that may No No increase risk of falls Signs or symptoms of abuse and/or No No neglect since last visit Have you been in the hospital since your No No last visit? Has dressing in place as prescribed Yes Yes Has compression in place as prescribed Yes Yes Has offloadiing in place as prescribed N/A No Experienced any changes in pain level or No No management Left Footwear Regular Shoe Regular Shoe Right Footwear Regular Shoe Regular Shoe Pain Scale: 0-10 Numeric Is Patient Pain Free? Yes Yes - Nurse 1 - General Ulcer Measurement Start: 11/01/23 14:23 Freq: Status: Active Protocol: Activity Type Activity Date Activity User E-sign Co-sign Detail Recorded Client Recorded Date Recorded By Document 11/01/23 14:23 KW Desktop 11/01/23 14:27 KW Document 11/08/23 13:27 JF Laptop 11/08/23 13:32 JF 11/01/23 11/08/23 14:23 13:27 Wound Center Nurse 1 4-left medial leg -Current Size (cm) - Length 8.1 7.6 -Current Size (cm) - Width 6.6 6 -Current Size (cm) - Depth 0.3 0.4 -Total Square Cm 53.46 45.6 -Date of Last Picture (Recall this 11/01/23 11/08/23 field) -Photo Taken Yes Yes -Exudate Amt Large Medium -Exudate Type Serosanguineous Serosanguineous -Wound Margin Distinct, Distinct, Outline Outline Attached Attached -Granulation Amt Large (67-100%) Large (67-100%) -Granulation Quality Red Red -Texture (Miroslava-wound Skin Appearance) Assessed Assessed -Moisture (Miroslava-wound Skin Appearance) Assessed, Assessed Weeping -Color (Miroslava-wound Skin Appearance) Assessed, Assessed Erythema -Temperature (Miroslava-wound Skin No Abnormality No Abnormality Appearance) (Pt Warm) (Pt Warm) -Ulcer Cleansing Soap and Water Soap and Water -Foul Odor after Cleansing No -Anesthetic Used 4% Lidocaine 5% Lidocaine Solution Gel Left Calf (cm) 57 51.3 Left Ankle (cm) 29.6 30.8 WC - Nurse 2 - General Ulcer CM Notes Start: 11/01/23 14:23 Freq: Status: Active Protocol: Activity Type Activity Date Activity User E-sign Co-sign Detail Recorded Client Recorded Date Recorded By Document 11/01/23 16:26 PL [id number] 11/01/23 16:27 PL Document 11/08/23 13:37 JF Laptop 11/08/23 13:41 11/01/23 11/08/23 16:26 13:37 Wound Center Nurse 2 4-left medial leg -Time 14:50 13:38 -Correct Patient Yes Yes -Correct Side, Site, Position Yes Yes -Correct Procedure Yes Yes -Procedure Performed Yes Yes -Type of Procedure Debridement Debridement -Clinical Debridement Subcutaneous Subcutaneous -Tissue Removed Subcutaneous Subcutaneous -Post Debridement (cm) - Length 5.5 7.6 -Post Debridement (cm) - Width 7.5 6.1 -Post Debridement (cm) - Depth 0.1 0.4 -Total Square (Post) (cm) 41.25 46.36 -Area of Debridement (cm) - Length 5.5 7.6 -Area of Debridement (cm) - Width 7.5 6.1 -Total Square (Area) (cm) 41.25 46.36 -Tunneling No No -Undermining/Tunneling No No -Circular Undermining No No -Wound/Ulcer Outcome Not Healed Not Healed -Ulcer Cleansing Rinsed/ Rinsed/ Irrigated with Irrigated with Saline Saline -Foul Odor after Cleansing No No -Bioengineered Tissue No No -Bleeding Controlled with NA Pressure -Treatment Response Procedure Procedure Tolerated Well Tolerated Well -Offloading No -Debridement - Subq, 1st 20sq cm Yes Yes -Debridement, SubQ, ea addt'l 20sq cm 2 2 or part thereof Pain Scale: 0-10 Numeric Is Patient Pain Free? Yes Yes - Nurse 3 - General Ulcer D/C NN Start: 11/01/23 14:23 Freq: Status: Active Protocol: Activity Type Activity Date Activity User E-sign Co-sign Detail Recorded Client Recorded Date Recorded By Document 11/08/23 13:45 KW Desktop 11/08/23 13:45 KW 11/08/23 13:45 Wound Care Center Nurse 3 4-left medial leg -Primary Dressing Covered/Secured with Dry Gauze Left -Compression Wrap Mc Wrap Pain Scale: 0-10 Numeric Is Patient Pain Free? Yes - Visit Discharge Discharge Condition Stable Ambulatory Status Ambulatory, Walker Transportation Private Auto Medication Reconcilliation completed & No provided to patient/care provider Clinical Summary of Care Provided Yes Assessment/Plan Assessment/Plan (1) Ulcer of left lower extremity with fat layer exposed: CODE(S): L97.922 - Non-pressure chronic ulcer of unspecified part of left lower leg with fat layer exposed (2) Hematoma of left lower leg: CODE(S): S80.12XA - Contusion of left lower leg, initial encounter (3) DM type 2, goal HbA1c < 7%: CODE(S): E11.9 - Type 2 diabetes mellitus without complications (4) Anemia of chronic disease: CODE(S): D63.8 - Anemia in other chronic diseases classified elsewhere (5) Anticoagulant long-term use: CODE(S): 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 When a double mc wrap is available, may stop the Tubigrip. More granulation tissue present. Minimal exudate present. A wound culture was obtained on 11/01/23. It was positive for Staphylococcus aureus. Will start her on Augmentin. Lymphedema is slowly improving. With her lymphedema, additional compression may be necessary with Farrow wraps. Stressed importance keeping legs elevated when sitting. Encouraged to sleep in a bed laying flat. Prealbumin was 12.5 on 04/20/23. Continue nutritional supplementation with protein to help the healing process. Patient is obese and has moderate swelling that can be problematic as it will slow down healing. Hgb was 7.3 at discharge on 09/06/23. Had PRBC while hospitalized. Recent Hgb on 09/22/23 was 7.6. She is on Iron Supplementation. Will monitor closely. Since most of the ulcer shows granulation tissue and minimal exudate, will apply for advanced skin substitute grafts which are applied at the wound center. Awaiting medical approval. She would really benefit from compression pumps due to the severity of her edema /lymphedema, even with her wearing consistent compression. Awaiting insurance approval. Followup one week.
[2023-11-15 13:32] VITALS: BP 162/56; PULSE 68; RESP 18; TEMP 35.8; BMI 46.6
--- NOTE | 2023-11-15 14:31 | PCM.WC.PN ---
History of Present Illness Date of Service: 11/15/23 Chief Complaint: Nonhealing hematoma ulcer left knee History of Wound: Patient fell on 09/01/23 and developed a LEFT proximal leg hematoma. Had surgery on 09/03/23 for Evacuation of hematoma with wound VAC placement by Dr. Lockwood. Wound VAC placed on 09/06/23. Operative culture positive for MSSA. Treated with Keflex that she completed 09/13/23. Acute on chronic anemia that she required transfusion of 3 units of PRBCs. Hgb on admission on 09/01/23 was 6.7 and it was 7.3 at discharge on 09/07/23. She had her Hgb checked as an outpatient on 09/15/23 and it was 7.4. A repeat Hgb was done on 09/22/23 and it was 7.6. Venous studies done on 08/13/23 - Sapheno-femoral junctions are bilaterally incompetent . Segmental valvular incompetence is noted within the great saphenous veins bilaterally. The right small saphenous vein is patent and incompetent. The accessory saphenous vein at the right knee is incompetent. Two accessory saphenous veins in the left mid-thigh are incompetent. An accessory saphenous vein at the left knee is incompetent. An incompetent lab engineer vein is noted in the right calf, located 5 centimeters proximal to the right medial malleolus. Pulsatile flow is noted in the deep venous system bilaterally, which may be indicative of elevated central venous pressure (i.e. congestive heart failure, pulmonary hypertension, etc.). Clinical correlation is advised. Arterial studies obtained 08/13/23 - Biphasic and triphasic Doppler waveforms are noted at ankle level on the right. Triphasic Doppler waveforms are noted at ankle level on the left. Pulse-volume recordings appear diminished at digital level on the left, but satisfactory at all other levels bilaterally. Resting ankle-brachial indices are normal bilaterally. The right digital-brachial index is mildly diminished. The left digital-brachial index is low-normal. Arterial flow appears normal at ankle level bilaterally. 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 Right JEFFREY - 1.00, left JEFFREY - 1.18. [facility] We have received medical approval for placement of advanced skin substitute grafts such as Thera-Skin. Patient states she cannot afford the copay at this time. A wound culture was obtained on 11/01/23. It was positive for Staphylococcus aureus. We started her on Augmentin. She is finishing them. Today she denies fever. Her appetite is ok. Progress of Wound: Improved. Some redness inferiorly probably from the Dakin's leaking onto her skin. Has a fungal component. Objective Data Objective Data Vital Signs: Vital Signs Temp Pulse Resp BP O2 Del Method 96.5 F L 68 18 162/56 H Room Air 11/15/23 13:32 11/15/23 13:32 11/15/23 13:32 11/15/23 13:32 11/15/23 13:32 Oxygen Delivery Method Room Air Weight: 307 lb Body Mass Index (BMI) 46.6 Prealbumin was 12.5 on 04/20/23.? Continue nutritional supplementation with protein to help the healing process. Lab / Micro Data Attestation: I reviewed the patient's lab results. Lab results narrative: Hgb was 7.3 at discharge on 09/06/23. She received PRBC while in hospital. On 09/22/23 the Hgb was 7.6. Will continue to monitor. She is on Iron supplementation. Micro: Microbiology 11/01/23 14:55 Wound - Knee Gram Stain - Final 11/01/23 14:55 Wound - Knee Wound Culture - Final Staphylococcus aureus 11/01/23 14:55 Wound - Knee Anaerobic Culture - Final No anaerobic bacteria isolated. Charges/Coding Procedures Integumentary [id number]: 15480 Zita subq tissue 20 sq cm/< (ICD-10 - L97.922, S80.12xA, E11.9, D63.8, Z79.01, E66.9, I89.0) Add On Codes: 02948 Zita subq tissue add-on (ICD-10 - L97.922, S80.12xA, E11.9, D63.8, Z79.01, E66.9, I89.0) Debridement Note Debridement Note Wound debrided: #4 Left medial leg. Laterality: Left Wound Grade/Stage: 2. Type of Debridement: Excisional debridement Anesthesia Used: 5% Lidocaine Gel Depth: Down to and including healthy tissue and in the subcutaneous layer Percentage of wound debrided: 100 Instrument Used: 5mm curette Tissue Removed: subcutaneous tissue. Severity: Fat Layer Exposed Amount of bleeding with debridement: Mild Bleeding Controlled with: Pressure and Compression and gauze Patient tolerated procedure: Patient tolerated procedure well Post-Debridement Measurements and Additional Note: Post-Debridement Measurements/Treatment - Nurse 1 - General Ulcer Assessment Start: 11/01/23 14:23 Freq: Status: Active Protocol: WC.LOWEXT Activity Type Activity Date Activity User E-sign Co-sign Detail Recorded Client Recorded Date Recorded By Document 11/01/23 14:23 KW Desktop 11/01/23 14:27 KW Edit Result 11/01/23 14:23 KW (1) Desktop 11/01/23 14:28 KW Document 11/08/23 13:27 JF Laptop 11/08/23 13:32 JF Document 11/15/23 13:32 BMF Desktop 11/15/23 13:39 BMF (1) Pulse Rate (60-100) => 61 Blood Pressure (90/60-120/80) => 184/66 H Blood Pressure Mean (mm Hg) => 105 11/01/23 11/08/23 11/15/23 14:23 13:27 13:32 - Today's Visit Information Type of service Follow-up Visit Follow-up Visit Follow-up Visit (Physician/ELASTIC ATTACHER COVERSTITCH (Physician/ELASTIC ATTACHER COVERSTITCH (Physician/ELASTIC ATTACHER COVERSTITCH ) ) ) Arrival Mode Ambulatory, Ambulatory, Ambulatory, Walker Walker Walker Transfer Assistance None Accompanied by daughter Patient Identification Verified (Name & Yes Yes Yes ) Patient Requires Transmission-Based No Precautions Height and Weight Body Mass Index (BMI) 46.6 46.6 46.6 BMI Classification Obese Obese Obese Vital Signs Temperature (97.8 F-99.1 F) 96.0 F L 97.7 F L 96.5 F L Temperature Source Temporal Temporal Temporal Pulse Rate (60-100) 61 71 68 Pulse Location Monitor Monitor Monitor Respiratory Rate (12-18) 18 18 18 Respiratory rate source Observation Observation Observation Oxygen Delivery Method Room Air Room Air Room Air Blood Pressure (90/60-120/80) 184/66 H 142/70 H 162/56 H Blood Pressure Mean (mm Hg) 105 94 91 Source Monitor Monitor Monitor Position Semi-Fowlers Semi-Fowlers Sitting Blood Pressure Location Left Arm Left Arm Left Arm History Since Last Visit- (Skip if this is Patient's initial visit) Have you changed medications since your No No No last visit? Any new allergies or adverse reactions No No No Had a fall/change in ADL's that may No No No increase risk of falls Signs or symptoms of abuse and/or No No No neglect since last visit Have you been in the hospital since your No No No last visit? Has dressing in place as prescribed Yes Yes Yes Has compression in place as prescribed Yes Yes Yes Has offloadiing in place as prescribed N/A No N/A Experienced any changes in pain level or No No No management Left Footwear Regular Shoe Regular Shoe Regular Shoe Right Footwear Regular Shoe Regular Shoe Regular Shoe Pain Scale: 0-10 Numeric Is Patient Pain Free? Yes Yes Yes WC - Nurse 1 - General Ulcer Measurement Start: 11/01/23 14:23 Freq: Status: Active Protocol: Activity Type Activity Date Activity User E-sign Co-sign Detail Recorded Client Recorded Date Recorded By Document 11/01/23 14:23 Int[employer] Desktop 11/01/23 14:27 Intigua Document 11/08/23 13:27 Andera Laptop 11/08/23 13:32 Andera Document 11/15/23 13:32 [employer] Desktop 11/15/23 13:39 BMF 11/01/23 11/08/23 11/15/23 14:23 13:27 13:32 Wound Center Nurse 1 4-left medial leg -Combined with other wound No -Current Size (cm) - Length 8.1 7.6 7 -Current Size (cm) - Width 6.6 6 4.7 -Current Size (cm) - Depth 0.3 0.4 0.2 -Total Square Cm 53.46 45.6 32.9 -Date of Last Picture (Recall this 11/01/23 11/08/23 11/15/23 field) -Photo Taken Yes Yes Yes -Epithelialization Small 1-33% -Tunneling No -Undermining/Tunneling No -Circular Undermining No -Exudate Amt Large Medium Large -Exudate Type Serosanguineous Serosanguineous Serosanguineous -Wound Margin Distinct, Distinct, Distinct, Outline Outline Outline Attached Attached Attached -Granulation Amt Large (67-100%) Large (67-100%) Large (67-100%) -Granulation Quality Red Red Red -Slough/Fibrin Yes -Necrosis Amt Small (1-33%) -Necrotic Tissue Type Adherent Slough -Texture (Miroslava-wound Skin Appearance) Assessed Assessed Assessed, Excoriation, Scarring -Moisture (Miroslava-wound Skin Appearance) Assessed, Assessed Assessed, Weeping Maceration -Color (Miroslava-wound Skin Appearance) Assessed, Assessed Assessed, Erythema Erythema -Temperature (Miroslava-wound Skin No Abnormality No Abnormality No Abnormality Appearance) (Pt Warm) (Pt Warm) (Pt Warm) -Tenderness on Palpation (Miroslava-wound No Skin Appearance) -Ulcer Cleansing Soap and Water Soap and Water Soap and Water -Foul Odor after Cleansing No No -Anesthetic Used 4% Lidocaine 5% Lidocaine 5% Lidocaine Solution Gel Gel Lower Limb Edema Present Yes Left Calf (cm) 57 51.3 56.5 Left Ankle (cm) 29.6 30.8 30.2 WC - Nurse 2 - General Ulcer CM Notes Start: 11/01/23 14:23 Freq: Status: Active Protocol: Activity Type Activity Date Activity User E-sign Co-sign Detail Recorded Client Recorded Date Recorded By Document 11/01/23 16:26 [id number] 11/01/23 16:27 Document 11/08/23 13:37 Laptop 11/08/23 13:41 Document 11/15/23 13:49 Laptop 11/15/23 13:54 11/01/23 11/08/23 11/15/23 16:26 13:37 13:49 Wound Center Nurse 2 4-left medial leg -Time 14:50 13:38 13:53 -Correct Patient Yes Yes Yes -Correct Side, Site, Position Yes Yes Yes -Correct Procedure Yes Yes Yes -Procedure Performed Yes Yes Yes -Type of Procedure Debridement Debridement Debridement -Clinical Debridement Subcutaneous Subcutaneous Subcutaneous -Tissue Removed Subcutaneous Subcutaneous Subcutaneous -Post Debridement (cm) - Length 5.5 7.6 6.5 -Post Debridement (cm) - Width 7.5 6.1 4.3 -Post Debridement (cm) - Depth 0.1 0.4 0.2 -Total Square (Post) (cm) 41.25 46.36 27.95 -Area of Debridement (cm) - Length 5.5 7.6 6.5 -Area of Debridement (cm) - Width 7.5 6.1 4.3 -Total Square (Area) (cm) 41.25 46.36 27.95 -Tunneling No No No -Undermining/Tunneling No No No -Circular Undermining No No No -Wound/Ulcer Outcome Not Healed Not Healed Not Healed -Ulcer Cleansing Rinsed/ Rinsed/ Rinsed/ Irrigated with Irrigated with Irrigated with Saline Saline Saline -Foul Odor after Cleansing No No No -Bioengineered Tissue No No No -Bleeding Controlled with NA Pressure Pressure -Treatment Response Procedure Procedure Procedure Tolerated Well Tolerated Well Tolerated Well -Offloading No No -Debridement - Subq, 1st 20sq cm Yes Yes Yes -Debridement, SubQ, ea addt'l 20sq cm 2 2 1 or part thereof Pain Scale: 0-10 Numeric Is Patient Pain Free? Yes Yes Yes - Nurse 3 - General Ulcer D/C NN Start: 11/01/23 14:23 Freq: Status: Active Protocol: Activity Type Activity Date Activity User E-sign Co-sign Detail Recorded Client Recorded Date Recorded By Document 11/08/23 13:45 KW Desktop 11/08/23 13:45 KW Document 11/15/23 14:03 BM Desktop 11/15/23 14:05 [facility] 11/08/23 11/15/23 13:45 14:03 Wound Care Center Nurse 3 4-left medial leg -Ulcer Cleansing Rinsed/ Irrigated with Saline -Foul Odor after Cleansing No -Primary Dressing Applied Promogran Tiffani Matter -Other Dressing abd -Primary Dressing Covered/Secured with Dry Gauze Dry Gauze & Roll Gauze, Secured with Tape -Other Covering drsg per dl duty engineer -Promogran Tiffani Matter 2 Left -Compression Wrap Mc Wrap Mc Wrap Treatment Response Procedure Tolerated Well Pain Scale: 0-10 Numeric Is Patient Pain Free? Yes Yes - Visit Discharge Discharge Condition Stable Stable Ambulatory Status Ambulatory, Ambulatory, Walker Walker Transportation Private Auto Private Auto Medication Reconcilliation completed & No provided to patient/care provider Clinical Summary of Care Provided Yes Assessment/Plan Assessment/Plan (1) Ulcer of left lower extremity with fat layer exposed: CODE(S): L97.922 - Non-pressure chronic ulcer of unspecified part of left lower leg with fat layer exposed (2) Hematoma of left lower leg: CODE(S): S80.12XA - Contusion of left lower leg, initial encounter (3) DM type 2, goal HbA1c < 7%: CODE(S): E11.9 - Type 2 diabetes mellitus without complications (4) Anemia of chronic disease: CODE(S): D63.8 - Anemia in other chronic diseases classified elsewhere (5) Anticoagulant long-term use: CODE(S): Z79.01 - assisted (current) use of anticoagulants (6) On rivaroxaban therapy: CODE(S): Z79.01 - assisted (current) use of anticoagulants (7) Obesity: CODE(S): E66.9 - Obesity, unspecified (8) Lymphedema of both lower extremities: CODE(S): I89.0 - Lymphedema, not elsewhere classified PLAN: Plan Some of the Dakin's is leaking onto her skin inferior to the ulcer. Has a fungal component. Will start Diflucan. The Dakin's was stopped. We started Tiffani dressing changes followed by a Tubigrip and a compression mc wrap for the left medial leg ulcer. When a double mc wrap is available, may stop the Tubigrip. Good granulation tissue present. A wound culture was obtained on 11/01/23. It was positive for Staphylococcus aureus. We started her on Augmentin. She is finishing them up. Lymphedema is slowly improving. With her lymphedema, additional compression may be necessary with Farrow wraps. Stressed importance keeping legs elevated when sitting. Encouraged to sleep in a bed laying flat. Prealbumin was 12.5 on 04/20/23. Continue nutritional supplementation with protein to help the healing process. Patient is obese and has moderate swelling that can be problematic as it will slow down healing. Patient has acute on chronic anemia. Hgb was 6.7 at admission on 09/01/23. Hgb was 7.3 at discharge on 09/06/23. Had PRBC while hospitalized. Repeat Hgb on 09/22/23 was 7.6. She was placed on Iron Supplementation. The ulcer shows good granulation tissue and is ready for advanced skin substitute grafts such as Thera-Skin. These skin substitute grafts are applied at the wound center. We have received medical approval for the advanced skin substitute grafts. We can apply the grafts 10 times over a 12 week period. However, patient states she cannot afford the deductible at this time. When she had the skin substitute grafts applied to her right knee ulcer last year, it was later in the year and her deductible had already been met for that year. So we will continue the Tiffani dressing changes daily. She would really benefit from compression pumps due to the severity of her edema/lymphedema, even with her wearing consistent compression. Awaiting insurance approval. Followup one week.
[2023-11-22 13:03] VITALS: BP 147/56; PULSE 87; RESP 18; TEMP 36.2; BMI 46.6
--- NOTE | 2023-11-22 13:56 | PCM.WC.PN ---
History of Present Illness Date of Service: 11/22/23 Chief Complaint: Nonhealing hematoma ulcer left knee History of Wound: Patient fell on 09/01/23 and developed a LEFT proximal leg hematoma. Had surgery on 09/03/23 for Evacuation of hematoma with wound VAC placement by Dr. Lockwood. Wound VAC placed on 09/06/23. Operative culture positive for MSSA. Treated with Keflex that she completed 09/13/23. Acute on chronic anemia that she required transfusion of 3 units of PRBCs. Hgb on admission on 09/01/23 was 6.7 and it was 7.3 at discharge on 09/07/23. She had her Hgb checked as an outpatient on 09/15/23 and it was 7.4. A repeat Hgb was done on 09/22/23 and it was 7.6. Venous studies done on 08/13/23 - Sapheno-femoral junctions are bilaterally incompetent . Segmental valvular incompetence is noted within the great saphenous veins bilaterally. The right small saphenous vein is patent and incompetent. The accessory saphenous vein at the right knee is incompetent. Two accessory saphenous veins in the left mid-thigh are incompetent. An accessory saphenous vein at the left knee is incompetent. An incompetent post tensioning ironworker helper vein is noted in the right calf, located 5 centimeters proximal to the right medial malleolus. Pulsatile flow is noted in the deep venous system bilaterally, which may be indicative of elevated central venous pressure (i.e. congestive heart failure, pulmonary hypertension, etc.). Clinical correlation is advised. Arterial studies obtained 08/13/23 - Biphasic and triphasic Doppler waveforms are noted at ankle level on the right. Triphasic Doppler waveforms are noted at ankle level on the left. Pulse-volume recordings appear diminished at digital level on the left, but satisfactory at all other levels bilaterally. Resting ankle-brachial indices are normal bilaterally. The right digital-brachial index is mildly diminished. The left digital-brachial index is low-normal. Arterial flow appears normal at ankle level bilaterally. 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 Right JEFFREY - 1.00, left JEFFREY - 1.18. Wound care - Tiffani We have received medical approval for placement of advanced skin substitute grafts such as Thera-Skin. Patient states she cannot afford the copay at this time. A wound culture was obtained on 11/01/23. It was positive for Staphylococcus aureus. We started her on Augmentin. She is finishing them. Today she denies fever. Her appetite is ok. Patient forgot to pickling solution maker the Diflucan script. Progress of Wound: Improved. The redness on inferior aspect of ulcer has resolved. Objective Data Objective Data Vital Signs: Vital Signs Temp Pulse Resp BP O2 Del Method 97.2 F L 87 18 147/56 H Room Air 11/22/23 13:03 11/22/23 13:03 11/22/23 13:03 11/22/23 13:03 11/22/23 13:03 Oxygen Delivery Method Room Air Weight: 307 lb Body Mass Index (BMI) 46.6 Prealbumin was 12.5 on 04/20/23.? Continue nutritional supplementation with protein to help the healing process. Lab / Micro Data Attestation: I reviewed the patient's lab results. Lab results narrative: Hgb was 7.3 at discharge on 09/06/23. She received PRBC while in hospital. On 09/22/23 the Hgb was 7.6. Will continue to monitor. She is on Iron supplementation. Micro: Microbiology 11/01/23 14:55 Wound - Knee Gram Stain - Final 11/01/23 14:55 Wound - Knee Wound Culture - Final Staphylococcus aureus 11/01/23 14:55 Wound - Knee Anaerobic Culture - Final No anaerobic bacteria isolated. She was started on Augmentin and is finishing them. Charges/Coding Procedures Integumentary [id number]: 56229 Zita subq tissue 20 sq cm/< (ICD-10 - L97.922, S80.12xA, E11.9, D63.8, Z79.01, E66.9, I89.0) Add On Codes: 65979 Zita subq tissue add-on (ICD-10 - L97.922, S80.12xA, E11.9, D63.8, Z79.01, E66.9, I89.0) Debridement Note Debridement Note Wound debrided: #4 Left medial leg. Laterality: Left Wound Grade/Stage: 2. Type of Debridement: Excisional debridement Anesthesia Used: 5% Lidocaine Gel Depth: Down to and including healthy tissue and in the subcutaneous layer Percentage of wound debrided: 100 Instrument Used: 3mm curette Tissue Removed: subcutaneous tissue. Severity: Fat Layer Exposed Amount of bleeding with debridement: Mild Bleeding Controlled with: Pressure and Compression and gauze Patient tolerated procedure: Patient tolerated procedure well Post-Debridement Measurements and Additional Note: Post-Debridement Measurements/Treatment - Nurse 1 - General Ulcer Assessment Start: 11/01/23 14:23 Freq: Status: Active Protocol: .LOWEXT Activity Type Activity Date Activity User E-sign Co-sign Detail Recorded Client Recorded Date Recorded By Document 11/01/23 14:23 KW Desktop 11/01/23 14:27 KW Edit Result 11/01/23 14:23 KW (1) Desktop 11/01/23 14:28 KW Document 11/08/23 13:27 JF Laptop 11/08/23 13:32 JF Document 11/15/23 13:32 BMF Desktop 11/15/23 13:39 BMF Document 11/22/23 13:03 BMF Desktop 11/22/23 13:10 BMF (1) Pulse Rate (60-100) => 61 Blood Pressure (90/60-120/80) => 184/66 H Blood Pressure Mean (mm Hg) => 105 11/01/23 11/08/23 11/15/23 14:23 13:27 13:32 - Today's Visit Information Type of service Follow-up Visit Follow-up Visit Follow-up Visit (Physician/PROFESSIONAL NURSING TUTOR (Physician/PROFESSIONAL NURSING TUTOR (Physician/PROFESSIONAL NURSING TUTOR ) ) ) Arrival Mode Ambulatory, Ambulatory, Ambulatory, Walker Walker Walker Transfer Assistance None Accompanied by daughter Patient Identification Verified (Name & Yes Yes Yes ) Patient Requires Transmission-Based No Precautions Height and Weight Body Mass Index (BMI) 46.6 46.6 46.6 BMI Classification Obese Obese Obese Vital Signs Temperature (97.8 F-99.1 F) 96.0 F L 97.7 F L 96.5 F L Temperature Source Temporal Temporal Temporal Pulse Rate (60-100) 61 71 68 Pulse Location Monitor Monitor Monitor Respiratory Rate (12-18) 18 18 18 Respiratory rate source Observation Observation Observation Oxygen Delivery Method Room Air Room Air Room Air Blood Pressure (90/60-120/80) 184/66 H 142/70 H 162/56 H Blood Pressure Mean (mm Hg) 105 94 91 Source Monitor Monitor Monitor Position Semi-Fowlers Semi-Fowlers Sitting Blood Pressure Location Left Arm Left Arm Left Arm History Since Last Visit- (Skip if this is Patient's initial visit) Have you changed medications since your No No No last visit? Any new allergies or adverse reactions No No No Had a fall/change in ADL's that may No No No increase risk of falls Signs or symptoms of abuse and/or No No No neglect since last visit Have you been in the hospital since your No No No last visit? Has dressing in place as prescribed Yes Yes Yes Has compression in place as prescribed Yes Yes Yes Has offloadiing in place as prescribed N/A No N/A Experienced any changes in pain level or No No No management Left Footwear Regular Shoe Regular Shoe Regular Shoe Right Footwear Regular Shoe Regular Shoe Regular Shoe Pain Scale: 0-10 Numeric Is Patient Pain Free? Yes Yes Yes 11/22/23 13:03 WC - Today's Visit Information Type of service Follow-up Visit (Physician/PROFESSIONAL NURSING TUTOR ) Arrival Mode Ambulatory, Walker Transfer Assistance None Accompanied by Patient Identification Verified (Name & Yes ) Patient Requires Transmission-Based No Precautions Height and Weight Body Mass Index (BMI) 46.6 BMI Classification Obese Vital Signs Temperature (97.8 F-99.1 F) 97.2 F L Temperature Source Temporal Pulse Rate (60-100) 87 Pulse Location Monitor Respiratory Rate (12-18) 18 Respiratory rate source Observation Oxygen Delivery Method Room Air Blood Pressure (90/60-120/80) 147/56 H Blood Pressure Mean (mm Hg) 86 Source Monitor Position Sitting Blood Pressure Location Left Forearm History Since Last Visit- (Skip if this is Patient's initial visit) Have you changed medications since your No last visit? Any new allergies or adverse reactions No Had a fall/change in ADL's that may No increase risk of falls Signs or symptoms of abuse and/or No neglect since last visit Have you been in the hospital since your No last visit? Has dressing in place as prescribed Yes Has compression in place as prescribed Has offloadiing in place as prescribed N/A Experienced any changes in pain level or No management Left Footwear Regular Shoe Right Footwear Regular Shoe Pain Scale: 0-10 Numeric Is Patient Pain Free? Yes - Nurse 1 - General Ulcer Measurement Start: 11/01/23 14:23 Freq: Status: Active Protocol: Activity Type Activity Date Activity User E-sign Co-sign Detail Recorded Client Recorded Date Recorded By Document 11/01/23 14:23 KW Desktop 11/01/23 14:27 KW Document 11/08/23 13:27 JF Laptop 11/08/23 13:32 JF Document 11/15/23 13:32 BMF Desktop 11/15/23 13:39 BMF Document 11/22/23 13:03 BMF Desktop 11/22/23 13:10 [facility] 11/01/23 11/08/23 11/15/23 14:23 13:27 13:32 Wound Center Nurse 1 4-left medial leg -Combined with other wound No -Current Size (cm) - Length 8.1 7.6 7 -Current Size (cm) - Width 6.6 6 4.7 -Current Size (cm) - Depth 0.3 0.4 0.2 -Total Square Cm 53.46 45.6 32.9 -Date of Last Picture (Recall this 11/01/23 11/08/23 11/15/23 field) -Photo Taken Yes Yes Yes -Epithelialization Small 1-33% -Tunneling No -Undermining/Tunneling No -Circular Undermining No -Exudate Amt Large Medium Large -Exudate Type Serosanguineous Serosanguineous Serosanguineous -Wound Margin Distinct, Distinct, Distinct, Outline Outline Outline Attached Attached Attached -Granulation Amt Large (67-100%) Large (67-100%) Large (67-100%) -Granulation Quality Red Red Red -Slough/Fibrin Yes -Necrosis Amt Small (1-33%) -Necrotic Tissue Type Adherent Slough -Texture (Miroslava-wound Skin Appearance) Assessed Assessed Assessed, Excoriation, Scarring -Moisture (Miroslava-wound Skin Appearance) Assessed, Assessed Assessed, Weeping Maceration -Color (Miroslava-wound Skin Appearance) Assessed, Assessed Assessed, Erythema Erythema -Temperature (Miroslava-wound Skin No Abnormality No Abnormality No Abnormality Appearance) (Pt Warm) (Pt Warm) (Pt Warm) -Tenderness on Palpation (Miroslava-wound No Skin Appearance) -Ulcer Cleansing Soap and Water Soap and Water Soap and Water -Foul Odor after Cleansing No No -Anesthetic Used 4% Lidocaine 5% Lidocaine 5% Lidocaine Solution Gel Gel Lower Limb Edema Present Yes Left Calf (cm) 57 51.3 56.5 Left Ankle (cm) 29.6 30.8 30.2 11/22/23 13:03 Wound Center Nurse 1 4-left medial leg -Combined with other wound No -Current Size (cm) - Length 5.5 -Current Size (cm) - Width 4.8 -Current Size (cm) - Depth 0.1 -Total Square Cm 26.40 -Date of Last Picture (Recall this 11/22/23 field) -Photo Taken Yes -Epithelialization Small 1-33% -Tunneling No -Undermining/Tunneling No -Circular Undermining No -Exudate Amt Large -Exudate Type Serosanguineous -Wound Margin Distinct, Outline Attached -Granulation Amt Large (67-100%) -Granulation Quality Hyper- granulation,Red -Slough/Fibrin Yes -Necrosis Amt Small (1-33%) -Necrotic Tissue Type Adherent Slough -Texture (Miroslava-wound Skin Appearance) Assessed, Scarring -Moisture (Miroslava-wound Skin Appearance) Assessed,Dry/ Scaly -Color (Miroslava-wound Skin Appearance) Assessed -Temperature (Miroslava-wound Skin No Abnormality Appearance) (Pt Warm) -Tenderness on Palpation (Miroslava-wound Skin Appearance) -Ulcer Cleansing Soap and Water -Foul Odor after Cleansing No -Anesthetic Used 4% Lidocaine Solution Lower Limb Edema Present Yes Left Calf (cm) 57 Left Ankle (cm) 30.1 - Nurse 2 - General Ulcer CM Notes Start: 11/01/23 14:23 Freq: Status: Active Protocol: Activity Type Activity Date Activity User E-sign Co-sign Detail Recorded Client Recorded Date Recorded By Document 11/01/23 16:26 PL [id number] 11/01/23 16:27 PL Document 11/08/23 13:37 Laptop 11/08/23 13:41 Document 11/15/23 13:49 Laptop 11/15/23 13:54 Document 11/22/23 13:40 Laptop 11/22/23 13:43 11/01/23 11/08/23 11/15/23 16:26 13:37 13:49 Wound Center Nurse 2 4-left medial leg -Time 14:50 13:38 13:53 -Correct Patient Yes Yes Yes -Correct Side, Site, Position Yes Yes Yes -Correct Procedure Yes Yes Yes -Procedure Performed Yes Yes Yes -Type of Procedure Debridement Debridement Debridement -Clinical Debridement Subcutaneous Subcutaneous Subcutaneous -Tissue Removed Subcutaneous Subcutaneous Subcutaneous -Post Debridement (cm) - Length 5.5 7.6 6.5 -Post Debridement (cm) - Width 7.5 6.1 4.3 -Post Debridement (cm) - Depth 0.1 0.4 0.2 -Total Square (Post) (cm) 41.25 46.36 27.95 -Area of Debridement (cm) - Length 5.5 7.6 6.5 -Area of Debridement (cm) - Width 7.5 6.1 4.3 -Total Square (Area) (cm) 41.25 46.36 27.95 -Tunneling No No No -Undermining/Tunneling No No No -Circular Undermining No No No -Wound/Ulcer Outcome Not Healed Not Healed Not Healed -Ulcer Cleansing Rinsed/ Rinsed/ Rinsed/ Irrigated with Irrigated with Irrigated with Saline Saline Saline -Foul Odor after Cleansing No No No -Bioengineered Tissue No No No -Bleeding Controlled with NA Pressure Pressure -Treatment Response Procedure Procedure Procedure Tolerated Well Tolerated Well Tolerated Well -Offloading No No -Debridement - Subq, 1st 20sq cm Yes Yes Yes -Debridement, SubQ, ea addt'l 20sq cm 2 2 1 or part thereof Pain Scale: 0-10 Numeric Is Patient Pain Free? Yes Yes Yes 11/22/23 13:40 Wound Center Nurse 2 4-left medial leg -Time 13:40 -Correct Patient Yes -Correct Side, Site, Position Yes -Correct Procedure Yes -Procedure Performed Yes -Type of Procedure Debridement -Clinical Debridement Subcutaneous -Tissue Removed Subcutaneous -Post Debridement (cm) - Length 6 -Post Debridement (cm) - Width 4 -Post Debridement (cm) - Depth 0.1 -Total Square (Post) (cm) 24 -Area of Debridement (cm) - Length 6 -Area of Debridement (cm) - Width 4 -Total Square (Area) (cm) 24 -Tunneling No -Undermining/Tunneling No -Circular Undermining No -Wound/Ulcer Outcome Not Healed -Ulcer Cleansing Rinsed/ Irrigated with Saline -Foul Odor after Cleansing No -Bioengineered Tissue No -Bleeding Controlled with Pressure -Treatment Response Procedure Tolerated Well -Offloading No -Debridement - Subq, 1st 20sq cm Yes -Debridement, SubQ, ea addt'l 20sq cm 1 or part thereof Pain Scale: 0-10 Numeric Is Patient Pain Free? Yes - Nurse 3 - General Ulcer D/C NN Start: 11/01/23 14:23 Freq: Status: Active Protocol: Activity Type Activity Date Activity User E-sign Co-sign Detail Recorded Client Recorded Date Recorded By Document 11/08/23 13:45 KW P[employer] 11/08/23 13:45 KW Document 11/15/23 14:03 BM Desktop 11/15/23 14:05 BM Document 11/22/23 13:47 KW Desktop 11/22/23 13:48 KW 11/08/23 11/15/23 11/22/23 13:45 14:03 13:47 Wound Care Center Nurse 3 4-left medial leg -Ulcer Cleansing Rinsed/ Irrigated with Saline -Foul Odor after Cleansing No -Primary Dressing Applied Promogran Promogran Tiffani Matter Tiffani Matter -Other Dressing abd -Primary Dressing Covered/Secured with Dry Gauze Dry Gauze & Dry Gauze & Roll Gauze, Roll Gauze, Secured with Secured with Tape Tape -Other Covering drsg per dl core driller helper -Promogran Tiffani Matter 2 1 Left -Compression Wrap Mc Wrap Mc Wrap Mc Wrap Treatment Response Procedure Tolerated Well Pain Scale: 0-10 Numeric Is Patient Pain Free? Yes Yes Yes - Visit Discharge Discharge Condition Stable Stable Stable Ambulatory Status Ambulatory, Ambulatory, Ambulatory,Cane Walker Walker Transportation Private Auto Private Auto Medication Reconcilliation completed & No No provided to patient/care provider Clinical Summary of Care Provided Yes Yes Assessment/Plan Assessment/Plan (1) Ulcer of left lower extremity with fat layer exposed: CODE(S): L97.922 - Non-pressure chronic ulcer of unspecified part of left lower leg with fat layer exposed (2) Hematoma of left lower leg: CODE(S): S80.12XA - Contusion of left lower leg, initial encounter (3) DM type 2, goal HbA1c < 7%: CODE(S): E11.9 - Type 2 diabetes mellitus without complications (4) Anemia of chronic disease: CODE(S): D63.8 - Anemia in other chronic diseases classified elsewhere (5) Anticoagulant long-term use: CODE(S): Z79.01 - oysterman (current) use of anticoagulants (6) On rivaroxaban therapy: CODE(S): Z79.01 - nursing home (current) use of anticoagulants (7) Obesity: CODE(S): E66.9 - Obesity, unspecified (8) Lymphedema of both lower extremities: CODE(S): I89.0 - Lymphedema, not elsewhere classified PLAN: Plan Continue Tiffani dressing changes. The redness on the inferior aspect of the ulcer that had a fungal component has resolved. Patient forgot to pickling solution maker the Diflucan. Since the area resolved, she doesn't have to pickling solution maker the Diflucan at this time. After the Tiffani dressing she uses Tubigrip and mc wrap for compression. A wound culture was obtained on 11/01/23. It was positive for Staphylococcus aureus. We started her on Augmentin. She is finishing them up. Lymphedema is slowly improving. With her lymphedema, additional compression may be necessary with [place] wraps. Stressed importance keeping legs elevated when sitting. Encouraged to sleep in a bed laying flat. Prealbumin was 12.5 on 04/20/23. Continue nutritional supplementation with protein to help the healing process. Patient is obese and has moderate swelling that can be problematic as it will slow down healing. Patient has acute on chronic anemia. Hgb was 6.7 at admission on 09/01/23. Hgb was 7.3 at discharge on 09/06/23. Had PRBC while hospitalized. Repeat Hgb on 09/22/23 was 7.6. She was placed on Iron Supplementation. The ulcer shows good granulation tissue and is ready for advanced skin substitute grafts such as Thera-Skin. These skin substitute grafts are applied at the wound center. We have received medical approval for the advanced skin substitute grafts. We can apply the grafts 10 times over a 12 week period. However, patient states she cannot afford the deductible at this time. When she had the skin substitute grafts applied to her right knee ulcer last year, it was later in the year and her deductible had already been met for that year. So we will continue the Tiffani dressing changes daily. She would really benefit from compression pumps due to the severity of her edema/lymphedema, even with her wearing consistent compression. Awaiting insurance approval. Followup one week.
== END 2023-11-25 23:59 | disposition home or self-care (01) ==
LOC: WC 13:00
PROVIDERS: Referring Provider Surgery; Visit Provider Surgery
DX: E11.622 Type 2 diabetes mellitus with other skin ulcer (principal); L97.922 Non-pressure chronic ulcer of unspecified part of left lower leg with fat layer exposed; Z68.42 Body mass index [BMI] 45.0-49.9, adult; Z79.01 Long term (current) use of anticoagulants; S80.12XA Contusion of left lower leg, initial encounter; D63.8 Anemia in other chronic diseases classified elsewhere; E66.9 Obesity, unspecified; I89.0 Lymphedema, not elsewhere classified
CPT/HCPCS: 11042; 11045; 87070; 87075; 87077; 87186; 87205

== ENCOUNTER 2023-12-13 13:00 | Outpatient (RCR) | payer MEDICARE, SELFPAY ==
[2023-11-26 00:11] VITALS: BP 147/56; PULSE 87; RESP 18; TEMP 36.2; BMI 46.6
[2023-11-29 13:08] VITALS: BP 169/58; PULSE 60; RESP 20; TEMP 36.8; BMI 46.6
--- NOTE | 2023-11-29 14:12 | PCM.WC.PN ---
History of Present Illness Date of Service: 11/29/23 Chief Complaint: Nonhealing hematoma ulcer left knee History of Wound: Patient fell on 09/01/23 and developed a LEFT proximal leg hematoma. Had surgery on 09/03/23 for Evacuation of hematoma with wound VAC placement by Dr. Lockwood. Wound VAC placed on 09/06/23. Operative culture positive for MSSA. Treated with Keflex that she completed 09/13/23. Acute on chronic anemia that she required transfusion of 3 units of PRBCs. Hgb on admission on 09/01/23 was 6.7 and it was 7.3 at discharge on 09/07/23. She had her Hgb checked as an outpatient on 09/15/23 and it was 7.4. A repeat Hgb was done on 09/22/23 and it was 7.6. Venous studies done on 08/13/23 - Sapheno-femoral junctions are bilaterally incompetent . Segmental valvular incompetence is noted within the great saphenous veins bilaterally. The right small saphenous vein is patent and incompetent. The accessory saphenous vein at the right knee is incompetent. Two accessory saphenous veins in the left mid-thigh are incompetent. An accessory saphenous vein at the left knee is incompetent. An incompetent digital solutions architect vein is noted in the right calf, located 5 centimeters proximal to the right medial malleolus. Pulsatile flow is noted in the deep venous system bilaterally, which may be indicative of elevated central venous pressure (i.e. congestive heart failure, pulmonary hypertension, etc.). Clinical correlation is advised. Arterial studies obtained 08/13/23 - Biphasic and triphasic Doppler waveforms are noted at ankle level on the right. Triphasic Doppler waveforms are noted at ankle level on the left. Pulse-volume recordings appear diminished at digital level on the left, but satisfactory at all other levels bilaterally. Resting ankle-brachial indices are normal bilaterally. The right digital-brachial index is mildly diminished. The left digital-brachial index is low-normal. Arterial flow appears normal at ankle level bilaterally. 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 Right JEFFREY - 1.00, left JEFFREY - 1.18. Wound care - Tiffani We have received medical approval for placement of advanced skin substitute grafts such as Thera-Skin. Patient states she cannot afford the copay at this time. A wound culture was obtained on 11/01/23. It was positive for Staphylococcus aureus. We started her on Augmentin. She is finishing them. Today she denies fever. Her appetite is ok. Progress of Wound: Improved. Objective Data Objective Data Vital Signs: Vital Signs Temp Pulse Resp BP 98.2 F 60 20 H 169/58 H 11/29/23 13:08 11/29/23 13:08 11/29/23 13:08 11/29/23 13:08 Weight: 307 lb Body Mass Index (BMI) 46.6 Prealbumin was 12.5 on 04/20/23.? Continue nutritional supplementation with protein to help the healing process. Lab / Micro Data Attestation: I reviewed the patient's lab results. Lab results narrative: Hgb was 7.3 at discharge on 09/06/23. She received PRBC while in hospital. On 09/22/23 the Hgb was 7.6. Will continue to monitor. She is on Iron supplementation. Micro: Microbiology 11/01/23 14:55 Wound - Knee Gram Stain - Final 11/01/23 14:55 Wound - Knee Wound Culture - Final Staphylococcus aureus 11/01/23 14:55 Wound - Knee Anaerobic Culture - Final No anaerobic bacteria isolated. She was started on Augmentin and is finishing them. Charges/Coding Procedures Integumentary [id number]: 69184 Zita subq tissue 20 sq cm/< (ICD-10 - L97.922, S80.12xA, E11.9, D63.8, Z79.01, E66.9, I89.0) Add On Codes: 63448 Zita subq tissue add-on (ICD-10 - L97.922, S80.12xA, E11.9, D63.8, Z79.01, E66.9, I89.0) Debridement Note Debridement Note Wound debrided: #4 Left medial leg. Laterality: Left Wound Grade/Stage: 2. Type of Debridement: Excisional debridement Anesthesia Used: 5% Lidocaine Gel Depth: Down to and including healthy tissue and in the subcutaneous layer Percentage of wound debrided: 100 Instrument Used: 3mm curette Tissue Removed: subcutaneous tissue. Severity: Fat Layer Exposed Amount of bleeding with debridement: Mild Bleeding Controlled with: Pressure and Compression and gauze Patient tolerated procedure: Patient tolerated procedure well Post-Debridement Measurements and Additional Note: Post-Debridement Measurements/Treatment - Nurse 1 - General Ulcer Assessment Start: 11/29/23 13:08 Freq: Status: Active Protocol: USHA Activity Type Activity Date Activity User E-sign Co-sign Detail Recorded Client Recorded Date Recorded By Document 11/29/23 13:08 DL Desktop 11/29/23 13:15 DL 11/29/23 13:08 WC - Today's Visit Information Type of service Follow-up Visit (Physician/SALES AND EVENTS COORDINATOR ) Arrival Mode Ambulatory, Walker Transfer Assistance None Patient Identification Verified (Name & Yes ) Patient Requires Transmission-Based No Precautions Finger Stick Blood Sugar(mg/dl) (if not checked indicated): Blood Sugar Stated by Patient Height and Weight Body Mass Index (BMI) 46.6 BMI Classification Obese Vital Signs Temperature (97.8 F-99.1 F) 98.2 F Temperature Source Temporal Pulse Rate (60-100) 60 Pulse Location Monitor Respiratory Rate (12-18) 20 H Respiratory rate source Observation Blood Pressure (90/60-120/80) 169/58 H Blood Pressure Mean (mm Hg) 95 Source Monitor History Since Last Visit- (Skip if this is Patient's initial visit) Have you changed medications since your No last visit? Any new allergies or adverse reactions No Had a fall/change in ADL's that may No increase risk of falls Signs or symptoms of abuse and/or No neglect since last visit Have you been in the hospital since your No last visit? Has dressing in place as prescribed Yes Has compression in place as prescribed Yes Has offloadiing in place as prescribed N/A Experienced any changes in pain level or No management Pain Scale: 0-10 Numeric Is Patient Pain Free? Yes - Nurse 1 - General Ulcer Measurement Start: 11/29/23 13:08 Freq: Status: Active Protocol: Activity Type Activity Date Activity User E-sign Co-sign Detail Recorded Client Recorded Date Recorded By Document 11/29/23 13:08 [email or web address] Desktop 11/29/23 13:15 DL 11/29/23 13:08 Wound Center Nurse 1 4-left medial leg -Current Size (cm) - Length 7 -Current Size (cm) - Width 3.5 -Current Size (cm) - Depth 0.1 -Total Square Cm 24.5 -Exudate Amt Medium -Exudate Type Serosanguineous -Wound Margin Distinct, Outline Attached -Granulation Amt Large (67-100%) -Granulation Quality [place],Red -Necrosis Amt Small (1-33%) -Necrotic Tissue Type Adherent Slough -Structure Exposed N/A -Texture (Miroslava-wound Skin Appearance) Scarring,Rash -Moisture (Miroslava-wound Skin Appearance) Dry/Scaly -Color (Miroslava-wound Skin Appearance) Hemosiderin Staining -Temperature (Miroslava-wound Skin No Abnormality Appearance) (Pt Warm) -Tenderness on Palpation (Miroslava-wound No Skin Appearance) -Ulcer Cleansing Soap and Water -Foul Odor after Cleansing No -Anesthetic Used 5% Lidocaine Gel Left Calf (cm) 46 Left Ankle (cm) 30 WC - Nurse 2 - General Ulcer CM Notes Start: 11/29/23 13:08 Freq: Status: Active Protocol: Activity Type Activity Date Activity User E-sign Co-sign Detail Recorded Client Recorded Date Recorded By Document 11/29/23 13:34 Laptop 11/29/23 13:34 11/29/23 13:34 Wound Center Nurse 2 4-left medial leg -Time 13:34 -Correct Patient Yes -Correct Side, Site, Position Yes -Correct Procedure Yes -Procedure Performed Yes -Type of Procedure Debridement -Clinical Debridement Subcutaneous -Tissue Removed Subcutaneous -Post Debridement (cm) - Length 5.5 -Post Debridement (cm) - Width 5.2 -Post Debridement (cm) - Depth 0.1 -Total Square (Post) (cm) 28.60 -Area of Debridement (cm) - Length 5.5 -Area of Debridement (cm) - Width 5.2 -Total Square (Area) (cm) 28.60 -Tunneling No -Undermining/Tunneling No -Circular Undermining No -Wound/Ulcer Outcome Not Healed -Ulcer Cleansing Rinsed/ Irrigated with Saline -Foul Odor after Cleansing No -Bioengineered Tissue No -Bleeding Controlled with Pressure -Treatment Response Procedure Tolerated Well -Offloading No -Debridement - Subq, 1st 20sq cm Yes -Debridement, SubQ, ea addt'l 20sq cm 1 or part thereof Pain Scale: 0-10 Numeric Is Patient Pain Free? Yes AMBREEN - Nurse 3 - General Ulcer D/C NN Start: 11/29/23 13:08 Freq: Status: Active Protocol: Activity Type Activity Date Activity User E-sign Co-sign Detail Recorded Client Recorded Date Recorded By Document 11/29/23 13:38 KW Desktop 11/29/23 13:39 KW 11/29/23 13:38 Wound Care Center Nurse 3 4-left medial leg -Primary Dressing Applied Promogran Tiffani Matter -Promogran Tiffani Matter 1 Left -Compression Wrap Mc Wrap Pain Scale: 0-10 Numeric Is Patient Pain Free? Yes WC - Visit Discharge Discharge Condition Stable Ambulatory Status Ambulatory, Walker Transportation Private Auto Medication Reconcilliation completed & No provided to patient/care provider Clinical Summary of Care Provided Yes Assessment/Plan Assessment/Plan (1) Ulcer of left lower extremity with fat layer exposed: CODE(S): L97.922 - Non-pressure chronic ulcer of unspecified part of left lower leg with fat layer exposed (2) Hematoma of left lower leg: CODE(S): S80.12XA - Contusion of left lower leg, initial encounter (3) DM type 2, goal HbA1c < 7%: CODE(S): E11.9 - Type 2 diabetes mellitus without complications (4) Anemia of chronic disease: CODE(S): D63.8 - Anemia in other chronic diseases classified elsewhere (5) Anticoagulant long-term use: CODE(S): Z79.01 - emt intermediate (current) use of anticoagulants (6) On rivaroxaban therapy: CODE(S): Z79.01 - emt intermediate (current) use of anticoagulants (7) Obesity: CODE(S): E66.9 - Obesity, unspecified (8) Lymphedema of both lower extremities: CODE(S): I89.0 - Lymphedema, not elsewhere classified PLAN: Plan Continue Tiffani dressing changes. The redness on the inferior aspect of the ulcer that had a fungal component has resolved. Patient forgot to shredder picker the Diflucan. Since the area resolved, she doesn't have to shredder picker the Diflucan at this time. After the Tiffani dressing she uses Tubigrip and mc wrap for compression. A wound culture was obtained on 11/01/23. It was positive for Staphylococcus aureus. We started her on Augmentin. She is finishing them up. Lymphedema is slowly improving. With her lymphedema, additional compression may be necessary with [place] wraps. Stressed importance keeping legs elevated when sitting. Encouraged to sleep in a bed laying flat. Prealbumin was 12.5 on 04/20/23. Continue nutritional supplementation with protein to help the healing process. Patient is obese and has moderate swelling that can be problematic as it will slow down healing. Patient has acute on chronic anemia. Hgb was 6.7 at admission on 09/01/23. Hgb was 7.3 at discharge on 09/06/23. Had PRBC while hospitalized. Repeat Hgb on 09/22/23 was 7.6. She was placed on Iron Supplementation. The ulcer shows good granulation tissue and is ready for advanced skin substitute grafts such as Thera-Skin. These skin substitute grafts are applied at the wound center. We have received medical approval for the advanced skin substitute grafts. We can apply the grafts 10 times over a 12 week period. However, patient states she cannot afford the deductible at this time. When she had the skin substitute grafts applied to her right knee ulcer last year, it was later in the year and her deductible had already been met for that year. So we will continue the Tiffani dressing changes daily. She would really benefit from compression pumps due to the severity of her edema/lymphedema, even with her wearing consistent compression. Insurance finally approved the pumps and she has received them and ready to use them. Followup one week.
[2023-12-08 14:07] VITALS: BP 158/44; PULSE 66; RESP 18; TEMP 36.4; BMI 46.6
--- NOTE | 2023-12-08 17:04 | PCM.WC.PN ---
History of Present Illness Date of Service: 12/08/23 Chief Complaint: Nonhealing hematoma ulcer left knee History of Wound: Patient fell on 09/01/23 and developed a LEFT proximal leg hematoma. Had surgery on 09/03/23 for Evacuation of hematoma with wound VAC placement by Dr. Gallegos. Wound VAC placed on 09/06/23. Operative culture positive for MSSA. Treated with Keflex that she completed 09/13/23. Acute on chronic anemia that she required transfusion of 3 units of PRBCs. Hgb on admission on 09/01/23 was 6.7 and it was 7.3 at discharge on 09/07/23. She had her Hgb checked as an outpatient on 09/15/23 and it was 7.4. A repeat Hgb was done on 09/22/23 and it was 7.6. Venous studies done on 08/13/23 - Sapheno-femoral junctions are bilaterally incompetent . Segmental valvular incompetence is noted within the great saphenous veins bilaterally. The right small saphenous vein is patent and incompetent. The accessory saphenous vein at the right knee is incompetent. Two accessory saphenous veins in the left mid-thigh are incompetent. An accessory saphenous vein at the left knee is incompetent. An incompetent sales operations coordinator vein is noted in the right calf, located 5 centimeters proximal to the right medial malleolus. Pulsatile flow is noted in the deep venous system bilaterally, which may be indicative of elevated central venous pressure (i.e. congestive heart failure, pulmonary hypertension, etc.). Clinical correlation is advised. Arterial studies obtained 08/13/23 - Biphasic and triphasic Doppler waveforms are noted at ankle level on the right. Triphasic Doppler waveforms are noted at ankle level on the left. Pulse-volume recordings appear diminished at digital level on the left, but satisfactory at all other levels bilaterally. Resting ankle-brachial indices are normal bilaterally. The right digital-brachial index is mildly diminished. The left digital-brachial index is low-normal. Arterial flow appears normal at ankle level bilaterally. 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 Right JEFFREY - 1.00, left JEFFREY - 1.18. Wound care - Tiffani We have received medical approval for placement of advanced skin substitute grafts such as Thera-Skin. Patient states she cannot afford the copay at this time. A wound culture was obtained on 11/01/23. It was positive for Staphylococcus aureus. We started her on Augmentin and has finished them. Prealbumin was 12.5 on 04/20/23.? Continue nutritional supplementation with protein to help the healing process. Patient has diabetes mellitus. Her HgbA1c on 09/03/23 was 7.0. For elective surgeries, the HgbA1c needs to be less than 8. Today she denies fever. Her appetite is ok. She has started wearing her compression pumps. Progress of Wound: Improved. Objective Data Objective Data Vital Signs: Vital Signs Temp Pulse Resp BP 97.5 F L 66 18 158/44 H 12/08/23 14:07 12/08/23 14:07 12/08/23 14:07 12/08/23 14:07 Weight: 307 lb Body Mass Index (BMI) 46.6 Prealbumin was 12.5 on 04/20/23.? Continue nutritional supplementation with protein to help the healing process. Lab / Micro Data Attestation: I reviewed the patient's lab results. Lab results narrative: Hgb was 7.3 at discharge on 09/06/23. She received PRBC while in hospital. On 09/22/23 the Hgb was 7.6. Will continue to monitor. She is on Iron supplementation. Patient has diabetes mellitus. Her HgbA1c on 09/03/23 was 7.0. For elective surgeries, the HgbA1c needs to be less than 8. Micro: Microbiology 11/01/23 14:55 Wound - Knee Gram Stain - Final 11/01/23 14:55 Wound - Knee Wound Culture - Final Staphylococcus aureus 11/01/23 14:55 Wound - Knee Anaerobic Culture - Final No anaerobic bacteria isolated. She was started on Augmentin and has finished them. Charges/Coding Procedures Integumentary [id number]: [id number] Zita subq tissue 20 sq cm/< (ICD-10 - L97.922, S80.12xA, E11.9, D63.8, Z79.01, E66.9, I89.0) Debridement Note Debridement Note Wound debrided: #4 Left medial leg. Laterality: Left Wound Grade/Stage: 2. Type of Debridement: Excisional debridement Anesthesia Used: 5% Lidocaine Gel Depth: Down to and including healthy tissue and in the subcutaneous layer Percentage of wound debrided: 100 Instrument Used: 3mm curette Tissue Removed: subcutaneous tissue. Severity: Fat Layer Exposed Amount of bleeding with debridement: Mild Bleeding Controlled with: Pressure and Compression and gauze Patient tolerated procedure: Patient tolerated procedure well Post-Debridement Measurements and Additional Note: Post-Debridement Measurements/Treatment WC - Nurse 1 - General Ulcer Assessment Start: 11/29/23 13:08 Freq: Status: Active Protocol: USHA Activity Type Activity Date Activity User E-sign Co-sign Detail Recorded Client Recorded Date Recorded By Document 11/29/23 13:08 DL Desktop 11/29/23 13:15 DL Document 12/08/23 14:07 RB Desktop 12/08/23 14:09 RB 11/29/23 12/08/23 13:08 14:07 - Today's Visit Information Type of service Follow-up Visit Follow-up Visit (Physician/EMERGENCY MEDICAL TECHNICIAN BASIC (Physician/EMERGENCY MEDICAL TECHNICIAN BASIC ) ) Arrival Mode Ambulatory, Ambulatory, Walker Walker Transfer Assistance None None Patient Identification Verified (Name & Yes Yes ) Patient Requires Transmission-Based No No Precautions Finger Stick Blood Sugar(mg/dl) (if not checked indicated): Blood Sugar Stated by Patient Height and Weight Body Mass Index (BMI) 46.6 46.6 BMI Classification Obese Obese Vital Signs Temperature (97.8 F-99.1 F) 98.2 F 97.5 F L Temperature Source Temporal Temporal Pulse Rate (60-100) 60 66 Pulse Location Monitor Monitor Respiratory Rate (12-18) 20 H 18 Respiratory rate source Observation Observation Blood Pressure (90/60-120/80) 169/58 H 158/44 H Blood Pressure Mean (mm Hg) 95 82 Source Monitor Monitor Position Semi-Fowlers Blood Pressure Location Left Arm History Since Last Visit- (Skip if this is Patient's initial visit) Have you changed medications since your No No last visit? Any new allergies or adverse reactions No No Had a fall/change in ADL's that may No No increase risk of falls Signs or symptoms of abuse and/or No No neglect since last visit Have you been in the hospital since your No No last visit? Has dressing in place as prescribed Yes Yes Has compression in place as prescribed Yes Yes Has offloadiing in place as prescribed N/A No Experienced any changes in pain level or No No management Pain Scale: 0-10 Numeric Is Patient Pain Free? Yes Yes WC - Nurse 1 - General Ulcer Measurement Start: 11/29/23 13:08 Freq: Status: Active Protocol: Activity Type Activity Date Activity User E-sign Co-sign Detail Recorded Client Recorded Date Recorded By Document 11/29/23 13:08 DL Desktop 11/29/23 13:15 DL Document 12/08/23 14:07 RB Desktop 12/08/23 14:09 RB 11/29/23 12/08/23 13:08 14:07 Wound Center Nurse 1 4-left medial leg -Combined with other wound No -Current Size (cm) - Length 7 5 -Current Size (cm) - Width 3.5 4.8 -Current Size (cm) - Depth 0.1 0.1 -Total Square Cm 24.5 24.0 -Tunneling No -Undermining/Tunneling No -Circular Undermining No -Exudate Amt Medium Large -Exudate Type Serosanguineous Serosanguineous -Wound Margin Distinct, Distinct, Outline Outline Attached Attached -Granulation Amt Large (67-100%) Medium (34-66%) -Granulation Quality [place] -Slough/Fibrin Yes -Necrosis Amt Small (1-33%) Medium (34-66%) -Necrotic Tissue Type Adherent Slough Adherent Slough -Structure Exposed N/A N/A -Texture ([place]-wound Skin Appearance) Scarring,Rash Assessed, Scarring -Moisture ([place]-wound Skin Appearance) Dry/Scaly Assessed -Color ([place]-wound Skin Appearance) Hemosiderin Assessed Staining -Temperature ([place]-wound Skin No Abnormality No Abnormality Appearance) (Pt Warm) (Pt Warm) -Tenderness on Palpation ([place]-wound No No Skin Appearance) -Ulcer Cleansing Soap and Water Wound Cleanser -Foul Odor after Cleansing No No -Anesthetic Used 5% Lidocaine 5% Lidocaine Gel Gel Lower Limb Edema Present Yes Left Calf (cm) 46 59.2 Left Ankle (cm) 30 28 WC - Nurse 2 - General Ulcer CM Notes Start: 11/29/23 13:08 Freq: Status: Active Protocol: Activity Type Activity Date Activity User E-sign Co-sign Detail Recorded Client Recorded Date Recorded By Document 11/29/23 13:34 JF Laptop 11/29/23 13:34 JF Document 12/08/23 15:00 MW Desktop 12/08/23 15:09 MW 11/29/23 12/08/23 13:34 15:00 Wound Center Nurse 2 4-left medial leg -Time 13:34 15:00 -Correct Patient Yes Yes -Correct Side, Site, Position Yes Yes -Correct Procedure Yes Yes -Procedure Performed Yes Yes -Type of Procedure Debridement Debridement -Clinical Debridement Subcutaneous Subcutaneous -Tissue Removed Subcutaneous Subcutaneous -Post Debridement (cm) - Length 5.5 3.8 -Post Debridement (cm) - Width 5.2 4.5 -Post Debridement (cm) - Depth 0.1 0.2 -Total Square (Post) (cm) 28.60 17.10 -Area of Debridement (cm) - Length 5.5 3.8 -Area of Debridement (cm) - Width 5.2 4.5 -Total Square (Area) (cm) 28.60 17.10 -Tunneling No No -Undermining/Tunneling No No -Circular Undermining No No -Wound/Ulcer Outcome Not Healed Not Healed -Ulcer Cleansing Rinsed/ Rinsed/ Irrigated with Irrigated with Saline Saline -Foul Odor after Cleansing No No -Bioengineered Tissue No No -Bleeding Controlled with Pressure Pressure -Treatment Response Procedure Procedure Tolerated Well Tolerated Well -Offloading No No -Debridement - Subq, 1st 20sq cm Yes Yes -Debridement, SubQ, ea addt'l 20sq cm 1 or part thereof Pain Scale: 0-10 Numeric Is Patient Pain Free? Yes Yes WC - Nurse 3 - General Ulcer D/C NN Start: 11/29/23 13:08 Freq: Status: Active Protocol: Activity Type Activity Date Activity User E-sign Co-sign Detail Recorded Client Recorded Date Recorded By Document 11/29/23 13:38 KW Desktop 11/29/23 13:39 KW Document 12/08/23 15:10 RB Desktop 12/08/23 15:12 RB 11/29/23 12/08/23 13:38 15:10 Wound Care Center Nurse 3 4-left medial leg -Ulcer Cleansing Wound Cleanser -Primary Dressing Applied Promogran Promogran Tiffani Matter Tiffani Matter -Primary Dressing Covered/Secured with Dry Gauze,Dry Gauze & Roll Gauze,Secured with Tape -Promogran Tiffani Matter 1 1 Left -Compression Wrap Mc Wrap -Other mc Treatment Response Procedure Tolerated Well Pain Scale: 0-10 Numeric Is Patient Pain Free? Yes Yes WC - Visit Discharge Discharge Condition Stable Stable Ambulatory Status Ambulatory, Ambulatory, Walker Walker Transportation Private Auto Private Auto Medication Reconcilliation completed & No No provided to patient/care provider Clinical Summary of Care Provided Yes Yes Assessment/Plan Assessment/Plan (1) Ulcer of left lower extremity with fat layer exposed: CODE(S): L97.922 - Non-pressure chronic ulcer of unspecified part of left lower leg with fat layer exposed (2) Hematoma of left lower leg: CODE(S): S80.12XA - Contusion of left lower leg, initial encounter (3) DM type 2, goal HbA1c < 7%: CODE(S): E11.9 - Type 2 diabetes mellitus without complications (4) Anemia of chronic disease: CODE(S): D63.8 - Anemia in other chronic diseases classified elsewhere (5) Anticoagulant long-term use: CODE(S): Z79.01 - retirement (current) use of anticoagulants (6) On rivaroxaban therapy: CODE(S): 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 The redness on the inferior aspect of the ulcer that had a fungal component has resolved. Patient forgot to sweet pickle maker the Diflucan. Since the area resolved, she doesn't have to sweet pickle maker the Diflucan at this time. After the Tiffani dressing she uses Tubigrip and mc wrap for compression. A wound culture was obtained on 11/01/23. It was positive for Staphylococcus aureus. We started her on Augmentin. She has finished them. Lymphedema is slowly improving. With her lymphedema, additional compression may be necessary with [place] wraps. Stressed importance keeping legs elevated when sitting. Encouraged to sleep in a bed laying flat. Prealbumin was 12.5 on 04/20/23. Continue nutritional supplementation with protein to help the healing process. Patient is obese and has moderate swelling that can be problematic as it will slow down healing. Patient has acute on chronic anemia. Hgb was 6.7 at admission on 09/01/23. Hgb was 7.3 at discharge on 09/06/23. Had PRBC while hospitalized. Repeat Hgb on 09/22/23 was 7.6. She was placed on Iron Supplementation. Patient has diabetes mellitus. Her HgbA1c on 09/03/23 was 7.0. For elective surgeries, the HgbA1c needs to be less than 8. The ulcer shows good granulation tissue and is ready for advanced skin substitute grafts such as Thera-Skin. These skin substitute grafts are applied at the wound center. We have received medical approval for the advanced skin substitute grafts. We can apply the grafts 10 times over a 12 week period. However, patient states she cannot afford the deductible at this time. When she had the skin substitute grafts applied to her right knee ulcer last year, it was later in the year and her deductible had already been met for that year. So we will continue the Tiffani dressing changes daily. She would really benefit from compression pumps due to the severity of her edema/lymphedema, even with her wearing consistent compression. Insurance finally approved the pumps and she has received them and has started using them. Less swelling is noted today. Followup one week.
[2023-12-13 13:10] VITALS: BP 185/56; PULSE 64; RESP 18; TEMP 35.8; BMI 46.6
--- NOTE | 2023-12-13 14:28 | PCM.WC.PN ---
History of Present Illness Date of Service: 12/13/23 Chief Complaint: Nonhealing hematoma ulcer left knee History of Wound: Patient fell on 09/01/23 and developed a LEFT proximal leg hematoma. Had surgery on 09/03/23 for Evacuation of hematoma with wound VAC placement by Dr. Gallegos. Wound VAC placed on 09/06/23. Operative culture positive for MSSA. Treated with Keflex that she completed 09/13/23. Acute on chronic anemia that she required transfusion of 3 units of PRBCs. Hgb on admission on 09/01/23 was 6.7 and it was 7.3 at discharge on 09/07/23. She had her Hgb checked as an outpatient on 09/15/23 and it was 7.4. A repeat Hgb was done on 09/22/23 and it was 7.6. Venous studies done on 08/13/23 - Sapheno-femoral junctions are bilaterally incompetent . Segmental valvular incompetence is noted within the great saphenous veins bilaterally. The right small saphenous vein is patent and incompetent. The accessory saphenous vein at the right knee is incompetent. Two accessory saphenous veins in the left mid-thigh are incompetent. An accessory saphenous vein at the left knee is incompetent. An incompetent flow coordinator vein is noted in the right calf, located 5 centimeters proximal to the right medial malleolus. Pulsatile flow is noted in the deep venous system bilaterally, which may be indicative of elevated central venous pressure (i.e. congestive heart failure, pulmonary hypertension, etc.). Clinical correlation is advised. Arterial studies obtained 08/13/23 - Biphasic and triphasic Doppler waveforms are noted at ankle level on the right. Triphasic Doppler waveforms are noted at ankle level on the left. Pulse-volume recordings appear diminished at digital level on the left, but satisfactory at all other levels bilaterally. Resting ankle-brachial indices are normal bilaterally. The right digital-brachial index is mildly diminished. The left digital-brachial index is low-normal. Arterial flow appears normal at ankle level bilaterally. 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 Right JEFFREY - 1.00, left JEFFREY - 1.18. Wound care - Tiffani We have received medical approval for placement of advanced skin substitute grafts such as Thera-Skin. Patient states she cannot afford the copay at this time. A wound culture was obtained on 11/01/23. It was positive for Staphylococcus aureus. We started her on Augmentin and has finished them. Prealbumin was 12.5 on 04/20/23.? Continue nutritional supplementation with protein to help the healing process. Patient has diabetes mellitus. Her HgbA1c on 09/03/23 was 7.0. For elective surgeries, the HgbA1c needs to be less than 8. Today she denies fever. Her appetite is ok. She has started wearing her compression pumps. She has noticed a decrease in the swelling. Home Health called on 12/10/23, with concerns about redness on her buttock. They applied Calmoseptine. Told Home Health I could see her at the Wound Center that day. The patient refused stating she has an appointment on Wednesday. Between Wednesday and today, the patient states the redness is resolving. She didn't want anyone at the Wound Center to look at it today. She states that if the redness worsens or there is skin breakdown with ulceration, then she would have it evaluated and treated. Progress of Wound: Improved. Objective Data Objective Data Vital Signs: Vital Signs Temp Pulse Resp BP O2 Del Method 96.4 F L 64 18 185/56 H Room Air 12/13/23 13:10 12/13/23 13:10 12/13/23 13:10 12/13/23 13:10 12/13/23 13:10 Oxygen Delivery Method Room Air Weight: 307 lb Body Mass Index (BMI) 46.6 Prealbumin was 12.5 on 04/20/23.? Continue nutritional supplementation with protein to help the healing process. Lab / Micro Data Attestation: I reviewed the patient's lab results. Lab results narrative: Hgb was 7.3 at discharge on 09/06/23. She received PRBC while in hospital. On 09/22/23 the Hgb was 7.6. Will continue to monitor. She is on Iron supplementation. Patient has diabetes mellitus. Her HgbA1c on 09/03/23 was 7.0. For elective surgeries, the HgbA1c needs to be less than 8. Micro: Microbiology 11/01/23 14:55 Wound - Knee Gram Stain - Final 11/01/23 14:55 Wound - Knee Wound Culture - Final Staphylococcus aureus 11/01/23 14:55 Wound - Knee Anaerobic Culture - Final No anaerobic bacteria isolated. She was started on Augmentin and has finished them. Charges/Coding Procedures Integumentary [id number]: [id number] Zita subq tissue 20 sq cm/< (ICD-10 - L97.922, S80.12xA, E11.9, D63.8, Z79.01, E66.9, I89.0) Debridement Note Debridement Note Wound debrided: #4 Left medial leg. Laterality: Left Wound Grade/Stage: 2. Type of Debridement: Excisional debridement Anesthesia Used: 5% Lidocaine Gel Depth: Down to and including healthy tissue and in the subcutaneous layer Percentage of wound debrided: 100 Instrument Used: 3mm curette Tissue Removed: subcutaneous tissue. Severity: Fat Layer Exposed Amount of bleeding with debridement: Mild Bleeding Controlled with: Pressure and Compression and gauze Patient tolerated procedure: Patient tolerated procedure well Post-Debridement Measurements and Additional Note: Post-Debridement Measurements/Treatment - Nurse 1 - General Ulcer Assessment Start: 11/29/23 13:08 Freq: Status: Active Protocol: USHA Activity Type Activity Date Activity User E-sign Co-sign Detail Recorded Client Recorded Date Recorded By Document 11/29/23 13:08 DL Desktop 11/29/23 13:15 DL Document 12/08/23 14:07 RB Desktop 12/08/23 14:09 RB Document 12/13/23 13:10 KW Desktop 12/13/23 13:12 KW 11/29/23 12/08/23 12/13/23 13:08 14:07 13:10 - Today's Visit Information Type of service Follow-up Visit Follow-up Visit Follow-up Visit (Physician/WELLNESS DIRECTOR (Physician/WELLNESS DIRECTOR (Physician/WELLNESS DIRECTOR ) ) ) Arrival Mode Ambulatory, Ambulatory, Ambulatory, Walker Walker Walker Transfer Assistance None None Patient Identification Verified (Name & Yes Yes Yes ) Patient Requires Transmission-Based No No Precautions Finger Stick Blood Sugar(mg/dl) (if not checked indicated): Blood Sugar Stated by Patient Height and Weight Body Mass Index (BMI) 46.6 46.6 46.6 BMI Classification Obese Obese Obese Vital Signs Temperature (97.8 F-99.1 F) 98.2 F 97.5 F L 96.4 F L Temperature Source Temporal Temporal Oral Pulse Rate (60-100) 60 66 64 Pulse Location Monitor Monitor Monitor Respiratory Rate (12-18) 20 H 18 18 Respiratory rate source Observation Observation Observation Oxygen Delivery Method Room Air Blood Pressure (90/60-120/80) 169/58 H 158/44 H 185/56 H Blood Pressure Mean (mm Hg) 95 82 99 Source Monitor Monitor Monitor Position Semi-Fowlers Semi-Fowlers Blood Pressure Location Left Arm History Since Last Visit- (Skip if this is Patient's initial visit) Have you changed medications since your No No No last visit? Any new allergies or adverse reactions No No No Had a fall/change in ADL's that may No No No increase risk of falls Signs or symptoms of abuse and/or No No No neglect since last visit Have you been in the hospital since your No No No last visit? Has dressing in place as prescribed Yes Yes Yes Has compression in place as prescribed Yes Yes Yes Has offloadiing in place as prescribed N/A No N/A Experienced any changes in pain level or No No No management Left Footwear Regular Shoe Right Footwear Regular Shoe Pain Scale: 0-10 Numeric Is Patient Pain Free? Yes Yes Yes WC - Nurse 1 - General Ulcer Measurement Start: 11/29/23 13:08 Freq: Status: Active Protocol: Activity Type Activity Date Activity User E-sign Co-sign Detail Recorded Client Recorded Date Recorded By Document 11/29/23 13:08 DL Desktop 11/29/23 13:15 DL Document 12/08/23 14:07 RB Desktop 12/08/23 14:09 RB Document 12/13/23 13:10 KW Desktop 12/13/23 13:12 KW 11/29/23 12/08/23 12/13/23 13:08 14:07 13:10 Wound Center Nurse 1 4-left medial leg -Combined with other wound No -Current Size (cm) - Length 7 5 4.5 -Current Size (cm) - Width 3.5 4.8 3.5 -Current Size (cm) - Depth 0.1 0.1 0.1 -Total Square Cm 24.5 24.0 15.75 -Photo Taken No -Tunneling No -Undermining/Tunneling No -Circular Undermining No -Exudate Amt Medium Large -Exudate Type Serosanguineous Serosanguineous -Wound Margin Distinct, Distinct, Outline Outline Attached Attached -Granulation Amt Large (67-100%) Medium (34-66%) Large (67-100%) -Granulation Quality [place],Red [place] Red -Slough/Fibrin Yes -Necrosis Amt Small (1-33%) Medium (34-66%) -Necrotic Tissue Type Adherent Slough Adherent Slough -Structure Exposed N/A N/A -Texture ([place]-wound Skin Appearance) Scarring,Rash Assessed, Assessed Scarring -Moisture ([place]ava-wound Skin Appearance) Dry/Scaly Assessed Assessed -Color ([place]ava-wound Skin Appearance) Hemosiderin Assessed Assessed Staining -Temperature ([place]-wound Skin No Abnormality No Abnormality No Abnormality Appearance) (Pt Warm) (Pt Warm) (Pt Warm) -Tenderness on Palpation ([place]-wound No No No Skin Appearance) -Ulcer Cleansing Soap and Water Wound Cleanser Rinsed/ Irrigated with Saline -Foul Odor after Cleansing No No -Anesthetic Used 5% Lidocaine 5% Lidocaine 5% Lidocaine Gel Gel Gel Lower Limb Edema Present Yes Left Calf (cm) 46 59.2 42.4 Left Ankle (cm) 30 28 32.3 - Nurse 2 - General Ulcer CM Notes Start: 11/29/23 13:08 Freq: Status: Active Protocol: Activity Type Activity Date Activity User E-sign Co-sign Detail Recorded Client Recorded Date Recorded By Document 11/29/23 13:34 Laptop 11/29/23 13:34 Document 12/08/23 15:00 MW Desktop 12/08/23 15:09 Document 12/13/23 13:38 Laptop 12/13/23 13:43 11/29/23 12/08/23 12/13/23 13:34 15:00 13:38 Wound Center Nurse 2 4-left medial leg -Time 13:34 15:00 13:39 -Correct Patient Yes Yes Yes -Correct Side, Site, Position Yes Yes Yes -Correct Procedure Yes Yes Yes -Procedure Performed Yes Yes Yes -Type of Procedure Debridement Debridement Debridement -Clinical Debridement Subcutaneous Subcutaneous Subcutaneous -Tissue Removed Subcutaneous Subcutaneous Subcutaneous -Post Debridement (cm) - Length 5.5 3.8 6 -Post Debridement (cm) - Width 5.2 4.5 3 -Post Debridement (cm) - Depth 0.1 0.2 0.1 -Total Square (Post) (cm) 28.60 17.10 18 -Area of Debridement (cm) - Length 5.5 3.8 6 -Area of Debridement (cm) - Width 5.2 4.5 3 -Total Square (Area) (cm) 28.60 17.10 18 -Tunneling No No No -Undermining/Tunneling No No No -Circular Undermining No No No -Wound/Ulcer Outcome Not Healed Not Healed Not Healed -Ulcer Cleansing Rinsed/ Rinsed/ Rinsed/ Irrigated with Irrigated with Irrigated with Saline Saline Saline -Foul Odor after Cleansing No No No -Bioengineered Tissue No No No -Bleeding Controlled with Pressure Pressure Pressure -Treatment Response Procedure Procedure Procedure Tolerated Well Tolerated Well Tolerated Well -Offloading No No No -Debridement - Subq, 1st 20sq cm Yes Yes Yes -Debridement, SubQ, ea addt'l 20sq cm 1 or part thereof Pain Scale: 0-10 Numeric Is Patient Pain Free? Yes Yes Yes - Nurse 3 - General Ulcer D/C NN Start: 11/29/23 13:08 Freq: Status: Active Protocol: Activity Type Activity Date Activity User E-sign Co-sign Detail Recorded Client Recorded Date Recorded By Document 11/29/23 13:38 KW Desktop 11/29/23 13:39 KW Document 12/08/23 15:10 RB Desktop 12/08/23 15:12 RB Document 12/13/23 13:45 KW Desktop 12/13/23 13:46 KW 11/29/23 12/08/23 12/13/23 13:38 15:10 13:45 Wound Care Center Nurse 3 4-left medial leg -Ulcer Cleansing Wound Cleanser -Primary Dressing Applied Promogran Promogran Promogran Tiffani Matter Tiffani Matter Tiffani Matter -Primary Dressing Covered/Secured with Dry Gauze,Dry Dry Gauze & Gauze & Roll Roll Gauze, Gauze,Secured Secured with with Tape Tape -Promogran Tiffani Matter 1 1 1 Left -Compression Wrap Mc Wrap Mc Wrap -Other mc Treatment Response Procedure Tolerated Well Pain Scale: 0-10 Numeric Is Patient Pain Free? Yes Yes Yes - Visit Discharge Discharge Condition Stable Stable Stable Ambulatory Status Ambulatory, Ambulatory, Ambulatory, Walker Walker Walker Transportation Private Auto Private Auto Private Auto Medication Reconcilliation completed & No No No provided to patient/care provider Clinical Summary of Care Provided Yes Yes Yes Assessment/Plan Assessment/Plan (1) Ulcer of left lower extremity with fat layer exposed: CODE(S): L97.922 - Non-pressure chronic ulcer of unspecified part of left lower leg with fat layer exposed (2) Hematoma of left lower leg: CODE(S): S80.12XA - Contusion of left lower leg, initial encounter (3) DM type 2, goal HbA1c < 7%: CODE(S): E11.9 - Type 2 diabetes mellitus without complications (4) Anemia of chronic disease: CODE(S): D63.8 - Anemia in other chronic diseases classified elsewhere (5) Anticoagulant long-term use: CODE(S): 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 After the Tiffani dressing she uses Tubigrip and mc wrap for compression. A wound culture was obtained on 11/01/23. It was positive for Staphylococcus aureus. We started her on Augmentin. She has finished them. Lymphedema is slowly improving. With her lymphedema, additional compression may be necessary with [place] wraps. Stressed importance keeping legs elevated when sitting. Encouraged to sleep in a bed laying flat. Prealbumin was 12.5 on 04/20/23. Continue nutritional supplementation with protein to help the healing process. Patient is obese and has moderate swelling that can be problematic as it will slow down healing. Patient has acute on chronic anemia. Hgb was 6.7 at admission on 09/01/23. Hgb was 7.3 at discharge on 09/06/23. Had PRBC while hospitalized. Repeat Hgb on 09/22/23 was 7.6. She was placed on Iron Supplementation. Patient has diabetes mellitus. Her HgbA1c on 09/03/23 was 7.0. For elective surgeries, the HgbA1c needs to be less than 8. The ulcer shows good granulation tissue and is ready for advanced skin substitute grafts such as Thera-Skin. These skin substitute grafts are applied at the wound center. We have received medical approval for the advanced skin substitute grafts. We can apply the grafts 10 times over a 12 week period. However, patient states she cannot afford the deductible at this time. When she had the skin substitute grafts applied to her right knee ulcer last year, it was later in the year and her deductible had already been met for that year. So we will continue the Tiffani dressing changes daily. She would really benefit from compression pumps due to the severity of her edema/lymphedema, even with her wearing consistent compression. Insurance finally approved the pumps and she has received them and has started using them. Less swelling is noted today. Followup one week.
== END 2023-12-26 23:59 | disposition home or self-care (01) ==
LOC: WC 13:00
PROVIDERS: Referring Provider Surgery; Visit Provider Surgery
DX: L97.922 Non-pressure chronic ulcer of unspecified part of left lower leg with fat layer exposed (principal); Z68.42 Body mass index [BMI] 45.0-49.9, adult; E11.9 Type 2 diabetes mellitus without complications; D63.8 Anemia in other chronic diseases classified elsewhere; Z79.01 Long term (current) use of anticoagulants; S80.12XA Contusion of left lower leg, initial encounter; E66.9 Obesity, unspecified; I89.0 Lymphedema, not elsewhere classified; D64.9 Anemia, unspecified
CPT/HCPCS: 11042; 11045

== ENCOUNTER 2024-01-10 13:30 | Outpatient (RCR) | payer MEDICARE, SELFPAY ==
[2023-12-27 00:14] VITALS: BP 185/56; PULSE 64; RESP 18; TEMP 35.8; BMI 46.6
[2023-12-29 13:04] VITALS: BP 149/52; PULSE 65; RESP 18; TEMP 36.4; BMI 46.6
--- NOTE | 2023-12-29 15:02 | PCM.WC.PN ---
History of Present Illness Date of Service: 12/29/23 Chief Complaint: Nonhealing hematoma ulcer left knee History of Wound: Patient fell on 09/01/23 and developed a LEFT proximal leg hematoma. Had surgery on 09/03/23 for Evacuation of hematoma with wound VAC placement by Dr. Gallegos. Wound VAC placed on 09/06/23. Operative culture positive for MSSA. Treated with Keflex that she completed 09/13/23. Acute on chronic anemia that she required transfusion of 3 units of PRBCs. Hgb on admission on 09/01/23 was 6.7 and it was 7.3 at discharge on 09/07/23. She had her Hgb checked as an outpatient on 09/15/23 and it was 7.4. A repeat Hgb was done on 09/22/23 and it was 7.6. Venous studies done on 08/13/23 - Sapheno-femoral junctions are bilaterally incompetent . Segmental valvular incompetence is noted within the great saphenous veins bilaterally. The right small saphenous vein is patent and incompetent. The accessory saphenous vein at the right knee is incompetent. Two accessory saphenous veins in the left mid-thigh are incompetent. An accessory saphenous vein at the left knee is incompetent. An incompetent compressor engineer vein is noted in the right calf, located 5 centimeters proximal to the right medial malleolus. Pulsatile flow is noted in the deep venous system bilaterally, which may be indicative of elevated central venous pressure (i.e. congestive heart failure, pulmonary hypertension, etc.). Clinical correlation is advised. Arterial studies obtained 08/13/23 - Biphasic and triphasic Doppler waveforms are noted at ankle level on the right. Triphasic Doppler waveforms are noted at ankle level on the left. Pulse-volume recordings appear diminished at digital level on the left, but satisfactory at all other levels bilaterally. Resting ankle-brachial indices are normal bilaterally. The right digital-brachial index is mildly diminished. The left digital-brachial index is low-normal. Arterial flow appears normal at ankle level bilaterally. 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 Right JEFFREY - 1.00, left JEFFREY - 1.18. Wound care - Tiffani We have received medical approval for placement of advanced skin substitute grafts such as Thera-Skin. Patient states she cannot afford the copay at this time. A wound culture was obtained on 11/01/23. It was positive for Staphylococcus aureus. We started her on Augmentin and has finished them. Prealbumin was 12.5 on 04/20/23.? Continue nutritional supplementation with protein to help the healing process. Patient has diabetes mellitus. Her HgbA1c on 09/03/23 was 7.0. For elective surgeries, the HgbA1c needs to be less than 8. Today she denies fever. Her appetite is ok. She has started wearing her compression pumps. She has noticed a decrease in the swelling. Patient states there is no more redness on her buttock. Progress of Wound: Continues to improve. There is an erythematous rash in the miroslava-ulcer area, probable fungal. Objective Data Objective Data Vital Signs: Vital Signs Temp Pulse Resp BP O2 Del Method 97.5 F L 65 18 149/52 H Room Air 12/29/23 13:04 12/29/23 13:04 12/29/23 13:04 12/29/23 13:04 12/29/23 13:04 Oxygen Delivery Method Room Air Weight: 307 lb Body Mass Index (BMI) 46.6 Prealbumin was 12.5 on 04/20/23.? Continue nutritional supplementation with protein to help the healing process. Lab / Micro Data Attestation: I reviewed the patient's lab results. Lab results narrative: Hgb was 7.3 at discharge on 09/06/23. She received PRBC while in hospital. On 09/22/23 the Hgb was 7.6. Will continue to monitor. She is on Iron supplementation. Patient has diabetes mellitus. Her HgbA1c on 09/03/23 was 7.0. For elective surgeries, the HgbA1c needs to be less than 8. Micro: Microbiology 11/01/23 14:55 Wound - Knee Gram Stain - Final 11/01/23 14:55 Wound - Knee Wound Culture - Final Staphylococcus aureus 11/01/23 14:55 Wound - Knee Anaerobic Culture - Final No anaerobic bacteria isolated. She was started on Augmentin and has finished them. Charges/Coding Procedures Integumentary [id number]: [id number] Zita subq tissue 20 sq cm/< (ICD-10 - L97.922, S80.12xA, E11.9, D63.8, Z79.01, E66.9, I89.0, R21) Debridement Note Debridement Note Wound debrided: #4 Left medial leg. Laterality: Left Wound Grade/Stage: 2. Type of Debridement: Excisional debridement Anesthesia Used: 5% Lidocaine Gel Depth: Down to and including healthy tissue and in the subcutaneous layer Percentage of wound debrided: 100 Instrument Used: 3mm curette Tissue Removed: subcutaneous tissue. Severity: Fat Layer Exposed Amount of bleeding with debridement: Mild Bleeding Controlled with: Pressure and Compression and gauze Patient tolerated procedure: Patient tolerated procedure well Post-Debridement Measurements and Additional Note: Post-Debridement Measurements/Treatment - Nurse 1 - General Ulcer Assessment Start: 12/29/23 13:04 Freq: Status: Active Protocol: USHA Activity Type Activity Date Activity User E-sign Co-sign Detail Recorded Client Recorded Date Recorded By Document 12/29/23 13:04 [facility] Desktop 12/29/23 13:13 [facility] 12/29/23 13:04 WC - Today's Visit Information Type of service 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 ) Arrival Mode Ambulatory, Walker Transfer Assistance None Patient Identification Verified (Name & Yes ) Patient Requires Transmission-Based No Precautions Height and Weight Body Mass Index (BMI) 46.6 BMI Classification Obese Vital Signs Temperature (97.8 F-99.1 F) 97.5 F L Temperature Source Temporal Pulse Rate (60-100) 65 Pulse Location Monitor Respiratory Rate (12-18) 18 Respiratory rate source Observation Oxygen Delivery Method Room Air Blood Pressure (90/60-120/80) 149/52 H Blood Pressure Mean (mm Hg) 84 Source Monitor Position Sitting Blood Pressure Location Left Arm History Since Last Visit- (Skip if this is Patient's initial visit) Have you changed medications since your No last visit? Any new allergies or adverse reactions No Had a fall/change in ADL's that may No increase risk of falls Signs or symptoms of abuse and/or No neglect since last visit Have you been in the hospital since your No last visit? Has dressing in place as prescribed Yes Has compression in place as prescribed Yes Has offloadiing in place as prescribed N/A Experienced any changes in pain level or No management Left Footwear Regular Shoe Right Footwear Regular Shoe Pain Scale: 0-10 Numeric Is Patient Pain Free? Yes - Nurse 1 - General Ulcer Measurement Start: 12/29/23 13:04 Freq: Status: Active Protocol: Activity Type Activity Date Activity User E-sign Co-sign Detail Recorded Client Recorded Date Recorded By Document 12/29/23 13:04 [facility] Desktop 12/29/23 13:13 [facility] 12/29/23 13:04 Wound Center Nurse 1 4-left medial leg -Combined with other wound No -Current Size (cm) - Length 3.1 -Current Size (cm) - Width 4.1 -Current Size (cm) - Depth 0.1 -Total Square Cm 12.71 -Date of Last Picture (Recall this 12/29/23 field) -Photo Taken Yes -Epithelialization Small 1-33% -Tunneling No -Undermining/Tunneling No -Circular Undermining No -Exudate Amt Medium -Exudate Type Serosanguineous -Wound Margin Flat & Intact -Granulation Amt Large (67-100%) -Granulation Quality Red -Slough/Fibrin Yes -Necrosis Amt Small (1-33%) -Necrotic Tissue Type Adherent Slough -Texture (Miroslava-wound Skin Appearance) Assessed, Scarring -Moisture (Miroslava-wound Skin Appearance) Assessed,Dry/ Scaly -Color (Miroslava-wound Skin Appearance) Assessed -Temperature (Miroslava-wound Skin No Abnormality Appearance) (Pt Warm) -Tenderness on Palpation (Miroslava-wound No Skin Appearance) -Ulcer Cleansing Soap and Water -Foul Odor after Cleansing No -Anesthetic Used 4% Lidocaine Solution Lower Limb Edema Present Yes Left Calf (cm) 46.5 Left Ankle (cm) 31.6 WC - Nurse 2 - General Ulcer CM Notes Start: 12/29/23 13:04 Freq: Status: Active Protocol: Activity Type Activity Date Activity User E-sign Co-sign Detail Recorded Client Recorded Date Recorded By Document 12/29/23 13:39 [facility] Desktop 12/29/23 13:43 [facility] 12/29/23 13:39 Wound Center Nurse 2 4-left medial leg -Time 13:39 -Correct Patient Yes -Correct Side, Site, Position Yes -Correct Procedure Yes -Procedure Performed Yes -Type of Procedure Debridement -Clinical Debridement Subcutaneous -Tissue Removed Subcutaneous -Post Debridement (cm) - Length 4.5 -Post Debridement (cm) - Width 2.3 -Post Debridement (cm) - Depth 0.1 -Total Square (Post) (cm) 10.35 -Area of Debridement (cm) - Length 4.5 -Area of Debridement (cm) - Width 2.3 -Total Square (Area) (cm) 10.35 -Tunneling No -Undermining/Tunneling No -Circular Undermining No -Wound/Ulcer Outcome Not Healed -Ulcer Cleansing Rinsed/ Irrigated with Saline -Foul Odor after Cleansing No -Bioengineered Tissue No -Bleeding Controlled with Pressure -Treatment Response Procedure Tolerated Well -Offloading No -Debridement - Subq, 1st 20sq cm Yes Pain Scale: 0-10 Numeric Is Patient Pain Free? Yes WC - Nurse 3 - General Ulcer D/C NN Start: 12/29/23 13:04 Freq: Status: Active Protocol: Activity Type Activity Date Activity User E-sign Co-sign Detail Recorded Client Recorded Date Recorded By Document 12/29/23 13:50 [facility] Desktop 12/29/23 13:51 [facility] 12/29/23 13:50 Wound Care Center Nurse 3 4-left medial leg -Ulcer Cleansing Rinsed/ Irrigated with Saline -Foul Odor after Cleansing No -Primary Dressing Applied Promogran Tiffani Matter -Primary Dressing Covered/Secured with Dry Gauze & Roll Gauze, Secured with Tape -Other Covering ABD -Promogran Tiffani Matter 1 Left -Compression Wrap Mc Wrap Treatment Response Procedure Tolerated Well Pain Scale: 0-10 Numeric Is Patient Pain Free? 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 There was some miroslava-ulcer moisture buildup with an erythematous rash (probable fungal). Will order antifungal powder. After the Tiffani dressing she uses Tubigrip and mc wrap for compression. A wound culture was obtained on 11/01/23. It was positive for Staphylococcus aureus. We started her on Augmentin. She has finished them. She has been using her compression daily and has noticed a difference. Lymphedema is slowly improving. Stressed importance keeping legs elevated when sitting. Encouraged to sleep in a bed laying flat. Prealbumin was 12.5 on 04/20/23. Continue nutritional supplementation with protein to help the healing process. Patient is obese and has moderate swelling that can be problematic as it will slow down healing. Patient has acute on chronic anemia. Hgb was 6.7 at admission on 09/01/23. Hgb was 7.3 at discharge on 09/06/23. Had PRBC while hospitalized. Repeat Hgb on 09/22/23 was 7.6. She was placed on Iron Supplementation. Patient has diabetes mellitus. Her HgbA1c on 09/03/23 was 7.0. For elective surgeries, the HgbA1c needs to be less than 8. The ulcer shows good granulation tissue and is ready for advanced skin substitute grafts such as Thera-Skin. These skin substitute grafts are applied at the wound center. We have received medical approval for the advanced skin substitute grafts. We can apply the grafts 10 times over a 12 week period. However, patient states she cannot afford the deductible at this time. When she had the skin substitute grafts applied to her right knee ulcer last year, it was later in the year and her deductible had already been met for that year. So we will continue the Tiffani dressing changes daily. She would really benefit from compression pumps due to the severity of her edema/lymphedema, even with her wearing consistent compression. Insurance finally approved the pumps and she has received them and has started using them. Less swelling is noted today. Followup one week.
[2024-01-03 13:06] VITALS: BP 170/57; PULSE 67; RESP 67; TEMP 36.1; BMI 46.6
--- NOTE | 2024-01-03 14:26 | PCM.WC.PN ---
History of Present Illness Date of Service: 01/03/24 Chief Complaint: Nonhealing hematoma ulcer left knee History of Wound: Patient fell on 09/01/23 and developed a LEFT proximal leg hematoma. Had surgery on 09/03/23 for Evacuation of hematoma with wound VAC placement by Dr. Gallegos. Wound VAC placed on 09/06/23. Operative culture positive for MSSA. Treated with Keflex that she completed 09/13/23. Acute on chronic anemia that she required transfusion of 3 units of PRBCs. Hgb on admission on 09/01/23 was 6.7 and it was 7.3 at discharge on 09/07/23. She had her Hgb checked as an outpatient on 09/15/23 and it was 7.4. A repeat Hgb was done on 09/22/23 and it was 7.6. Venous studies done on 08/13/23 - Sapheno-femoral junctions are bilaterally incompetent . Segmental valvular incompetence is noted within the great saphenous veins bilaterally. The right small saphenous vein is patent and incompetent. The accessory saphenous vein at the right knee is incompetent. Two accessory saphenous veins in the left mid-thigh are incompetent. An accessory saphenous vein at the left knee is incompetent. An incompetent vp ad products and planning vein is noted in the right calf, located 5 centimeters proximal to the right medial malleolus. Pulsatile flow is noted in the deep venous system bilaterally, which may be indicative of elevated central venous pressure (i.e. congestive heart failure, pulmonary hypertension, etc.). Clinical correlation is advised. Arterial studies obtained 08/13/23 - Biphasic and triphasic Doppler waveforms are noted at ankle level on the right. Triphasic Doppler waveforms are noted at ankle level on the left. Pulse-volume recordings appear diminished at digital level on the left, but satisfactory at all other levels bilaterally. Resting ankle-brachial indices are normal bilaterally. The right digital-brachial index is mildly diminished. The left digital-brachial index is low-normal. Arterial flow appears normal at ankle level bilaterally. 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 Right JEFFREY - 1.00, left JEFFREY - 1.18. Wound care - Tiffani We have received medical approval for placement of advanced skin substitute grafts such as Thera-Skin. Patient states she cannot afford the copay at this time. A wound culture was obtained on 11/01/23. It was positive for Staphylococcus aureus. We started her on Augmentin and has finished them. Prealbumin was 12.5 on 04/20/23.? Continue nutritional supplementation with protein to help the healing process. Patient has diabetes mellitus. Her HgbA1c on 09/03/23 was 7.0. For elective surgeries, the HgbA1c needs to be less than 8. She has started wearing her compression pumps. She has noticed a decrease in the swelling. She states her miroslava-ulcer redness has resolved with the anti-fungal powder. She has been scratching her lower legs over the weekend. There is some redness present. Today she denies fever. Her appetite is ok. Progress of Wound: Continues to improve. The erythematous rash in the miroslava-ulcer area, has resolved. Objective Data Objective Data Vital Signs: Vital Signs Temp Pulse Resp BP O2 Del Method 96.9 F L 67 67 H 170/57 H Room Air 01/03/24 13:06 01/03/24 13:06 01/03/24 13:06 01/03/24 13:06 01/03/24 13:06 Oxygen Delivery Method Room Air Weight: 307 lb Body Mass Index (BMI) 46.6 Prealbumin was 12.5 on 04/20/23.? Continue nutritional supplementation with protein to help the healing process. Lab / Micro Data Attestation: I reviewed the patient's lab results. Lab results narrative: Hgb was 7.3 at discharge on 09/06/23. She received PRBC while in hospital. On 09/22/23 the Hgb was 7.6. Will continue to monitor. She is on Iron supplementation. Patient has diabetes mellitus. Her HgbA1c on 09/03/23 was 7.0. For elective surgeries, the HgbA1c needs to be less than 8. Micro: Microbiology 11/01/23 14:55 Wound - Knee Gram Stain - Final 11/01/23 14:55 Wound - Knee Wound Culture - Final Staphylococcus aureus 11/01/23 14:55 Wound - Knee Anaerobic Culture - Final No anaerobic bacteria isolated. She was started on Augmentin and has finished them. Charges/Coding Procedures Integumentary [id number]: [id number] Ziat subq tissue 20 sq cm/< (ICD-10 - L97.922, S80.12xA, E11.9, D63.8, Z79.01, E66.9, I89.0, L03.116, R21) Debridement Note Debridement Note Wound debrided: #4 Left medial leg. Laterality: Left Wound Grade/Stage: 2. Type of Debridement: Excisional debridement Anesthesia Used: 5% Lidocaine Gel Depth: Down to and including healthy tissue and in the subcutaneous layer Percentage of wound debrided: 100 Instrument Used: 3mm curette Tissue Removed: subcutaneous tissue. Severity: Fat Layer Exposed Amount of bleeding with debridement: Mild Bleeding Controlled with: Pressure and Compression and gauze Patient tolerated procedure: Patient tolerated procedure well (Inferior to the ulcer near the ankle is an area of redness and cellulitis. Not circumferential.) Post-Debridement Measurements and Additional Note: Post-Debridement Measurements/Treatment - Nurse 1 - General Ulcer Assessment Start: 12/29/23 13:04 Freq: Status: Active Protocol: .LOWEXT Activity Type Activity Date Activity User E-sign Co-sign Detail Recorded Client Recorded Date Recorded By Document 12/29/23 13:04 [employer] Desktop 12/29/23 13:13 [employer] Document 01/03/24 13:06 [employer] Desktop 01/03/24 13:11 [employer] 12/29/23 01/03/24 13:04 13:06 - Today's Visit Information Type of service Follow-up Visit Follow-up Visit (Physician/SR. VENDOR MANAGEMENT ASSOCIATE (Physician/SR. VENDOR MANAGEMENT ASSOCIATE ) ) Arrival Mode Ambulatory, Ambulatory, Walker Walker Transfer Assistance None Patient Identification Verified (Name & Yes Yes ) Patient Requires Transmission-Based No Precautions Height and Weight Body Mass Index (BMI) 46.6 46.6 BMI Classification Obese Obese Vital Signs Temperature (97.8 F-99.1 F) 97.5 F L 96.9 F L Temperature Source Temporal Temporal Pulse Rate (60-100) 65 67 Pulse Location Monitor Monitor Respiratory Rate (12-18) 18 67 H Respiratory rate source Observation Observation Oxygen Delivery Method Room Air Room Air Blood Pressure (90/60-120/80) 149/52 H 170/57 H Blood Pressure Mean (mm Hg) 84 94 Source Monitor Monitor Position Sitting Semi-Fowlers Blood Pressure Location Left Arm Left Arm History Since Last Visit- (Skip if this is Patient's initial visit) Have you changed medications since your No No last visit? Any new allergies or adverse reactions No No Had a fall/change in ADL's that may No No increase risk of falls Signs or symptoms of abuse and/or No No neglect since last visit Have you been in the hospital since your No No last visit? Has dressing in place as prescribed Yes Yes Has compression in place as prescribed Yes Yes Has offloadiing in place as prescribed N/A N/A Experienced any changes in pain level or No No management Left Footwear Regular Shoe Regular Shoe Right Footwear Regular Shoe Regular Shoe Pain Scale: 0-10 Numeric Is Patient Pain Free? Yes Yes WC - Nurse 1 - General Ulcer Measurement Start: 12/29/23 13:04 Freq: Status: Active Protocol: Activity Type Activity Date Activity User E-sign Co-sign Detail Recorded Client Recorded Date Recorded By Document 12/29/23 13:04 [employer] Desktop 12/29/23 13:13 [employer] Document 01/03/24 13:06 [employer] Desktop 01/03/24 13:11 KW 12/29/23 01/03/24 13:04 13:06 Wound Center Nurse 1 4-left medial leg -Combined with other wound No -Current Size (cm) - Length 3.1 2.5 -Current Size (cm) - Width 4.1 3.4 -Current Size (cm) - Depth 0.1 0.1 -Total Square Cm 12.71 8.50 -Date of Last Picture (Recall this 12/29/23 field) -Photo Taken Yes -Epithelialization Small 1-33% -Tunneling No -Undermining/Tunneling No -Circular Undermining No -Exudate Amt Medium Small -Exudate Type Serosanguineous Serosanguineous -Wound Margin Flat & Intact Distinct, Outline Attached -Granulation Amt Large (67-100%) Large (67-100%) -Granulation Quality Red Red -Slough/Fibrin Yes -Necrosis Amt Small (1-33%) -Necrotic Tissue Type Adherent Slough -Texture (Miroslava-wound Skin Appearance) Assessed, Assessed Scarring -Moisture (Miroslava-wound Skin Appearance) Assessed,Dry/ Assessed Scaly -Color (Miroslava-wound Skin Appearance) Assessed Assessed -Temperature (Miroslava-wound Skin No Abnormality No Abnormality Appearance) (Pt Warm) (Pt Warm) -Tenderness on Palpation (Miroslava-wound No No Skin Appearance) -Ulcer Cleansing Soap and Water Soap and Water -Foul Odor after Cleansing No No -Anesthetic Used 4% Lidocaine 4% Lidocaine Solution Solution Lower Limb Edema Present Yes Left Calf (cm) 46.5 54.4 Left Ankle (cm) 31.6 31.6 WC - Nurse 2 - General Ulcer CM Notes Start: 12/29/23 13:04 Freq: Status: Active Protocol: Activity Type Activity Date Activity User E-sign Co-sign Detail Recorded Client Recorded Date Recorded By Document 12/29/23 13:39 [employer] Desktop 12/29/23 13:43 MW Document 01/03/24 13:42 JF Laptop 01/03/24 13:44 JF 12/29/23 01/03/24 13:39 13:42 Wound Center Nurse 2 4-left medial leg -Time 13:39 13:42 -Correct Patient Yes Yes -Correct Side, Site, Position Yes Yes -Correct Procedure Yes Yes -Procedure Performed Yes Yes -Type of Procedure Debridement Debridement -Clinical Debridement Subcutaneous Subcutaneous -Tissue Removed Subcutaneous Subcutaneous -Post Debridement (cm) - Length 4.5 2.0 -Post Debridement (cm) - Width 2.3 3.5 -Post Debridement (cm) - Depth 0.1 0.1 -Total Square (Post) (cm) 10.35 7.00 -Area of Debridement (cm) - Length 4.5 2.0 -Area of Debridement (cm) - Width 2.3 3.5 -Total Square (Area) (cm) 10.35 7.00 -Tunneling No No -Undermining/Tunneling No No -Circular Undermining No No -Wound/Ulcer Outcome Not Healed Not Healed -Ulcer Cleansing Rinsed/ Rinsed/ Irrigated with Irrigated with Saline Saline -Foul Odor after Cleansing No No -Bioengineered Tissue No No -Bleeding Controlled with Pressure Pressure -Treatment Response Procedure Procedure Tolerated Well Tolerated Well -Offloading No No -Debridement - Subq, 1st 20sq cm Yes Yes Pain Scale: 0-10 Numeric Is Patient Pain Free? Yes Yes AMBREEN - Nurse 3 - General Ulcer D/C NN Start: 12/29/23 13:04 Freq: Status: Active Protocol: Activity Type Activity Date Activity User E-sign Co-sign Detail Recorded Client Recorded Date Recorded By Document 12/29/23 13:50 DL Desktop 12/29/23 13:51 DL Document 01/03/24 13:51 BMF Desktop 01/03/24 13:52 BMF 12/29/23 01/03/24 13:50 13:51 Wound Care Center Nurse 3 4-left medial leg -Ulcer Cleansing Rinsed/ Rinsed/ Irrigated with Irrigated with Saline Saline -Foul Odor after Cleansing No No -Primary Dressing Applied Promogran Promogran Tiffani Matter Tiffani Matter -Other Dressing abd pad -Primary Dressing Covered/Secured with Dry Gauze & Roll Gauze, Secured with Tape -Other Covering ABD drsg per dl lead rider -Promogran Tiffani Matter 1 1 Left -Compression Wrap Mc Wrap Mc Wrap -Other applied per dl lead rider Treatment Response Procedure Procedure Tolerated Well Tolerated Well Pain Scale: 0-10 Numeric Is Patient Pain Free? Yes Yes WC - Visit Discharge Discharge Condition Stable Ambulatory Status Ambulatory Transportation Private Auto Assessment/Plan Assessment/Plan (1) Ulcer of left lower extremity with fat layer exposed: CODE(S): L97.922 - Non-pressure chronic ulcer of unspecified part of left lower leg with fat layer exposed (2) Hematoma of left lower leg: CODE(S): S80.12XA - Contusion of left lower leg, initial encounter (3) DM type 2, goal HbA1c < 7%: CODE(S): E11.9 - Type 2 diabetes mellitus without complications (4) Anemia of chronic disease: CODE(S): D63.8 - Anemia in other chronic diseases classified elsewhere (5) Anticoagulant long-term use: CODE(S): Z79.01 - correction (current) use of anticoagulants (6) On rivaroxaban therapy: CODE(S): Z79.01 - 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 PLAN: Plan Continue Tiffani dressing changes. The miroslava-ulcer an erythematous rash (probable fungal). It has resolved with antifungal powder. After the Tiffani dressing she uses Tubigrip and mc wrap for compression. A wound culture was obtained on 11/01/23. It was positive for Staphylococcus aureus. We started her on Augmentin. She has finished them. She has been using her compression daily and has noticed a difference. Lymphedema is slowly improving. Stressed importance keeping legs elevated when sitting. Encouraged to sleep in a bed laying flat. Prealbumin was 12.5 on 04/20/23. Continue nutritional supplementation with protein to help the healing process. Patient is obese and has moderate swelling that can be problematic as it will slow down healing. Patient has acute on chronic anemia. Hgb was 6.7 at admission on 09/01/23. Hgb was 7.3 at discharge on 09/06/23. Had PRBC while hospitalized. Repeat Hgb on 09/22/23 was 7.6. She was placed on Iron Supplementation. Patient has diabetes mellitus. Her HgbA1c on 09/03/23 was 7.0. For elective surgeries, the HgbA1c needs to be less than 8. The ulcer shows good granulation tissue and is ready for advanced skin substitute grafts such as Thera-Skin. These skin substitute grafts are applied at the wound center. We have received medical approval for the advanced skin substitute grafts. We can apply the grafts 10 times over a 12 week period. However, patient states she cannot afford the deductible at this time. When she had the skin substitute grafts applied to her right knee ulcer last year, it was later in the year and her deductible had already been met for that year. So we will continue the Tiffani dressing changes daily. She would really benefit from compression pumps due to the severity of her edema/lymphedema, even with her wearing consistent compression. Insurance finally approved the pumps and she has received them and has started using them. Less swelling is noted today. Followup one week. For the new onset cellulitis left lower leg, will start her on Doxycycline.
[2024-01-10 13:31] VITALS: BP 165/64; PULSE 66; RESP 16; TEMP 36.2; BMI 46.6
--- NOTE | 2024-01-10 16:51 | PN.PCM_ITS ---
History of Present Illness Date of Service: 01/10/24 Chief Complaint: Nonhealing hematoma ulcer left knee History of Wound: Patient fell on 09/01/23 and developed a LEFT proximal leg hematoma. Had surgery on 09/03/23 for Evacuation of hematoma with wound VAC placement by Dr. Gallegos. Wound VAC placed on 09/06/23. Operative culture positive for MSSA. Treated with Keflex that she completed 09/13/23. Acute on chronic anemia that she required transfusion of 3 units of PRBCs. Hgb on admission on 09/01/23 was 6.7 and it was 7.3 at discharge on 09/07/23. She had her Hgb checked as an outpatient on 09/15/23 and it was 7.4. A repeat Hgb was done on 09/22/23 and it was 7.6. Venous studies done on 08/13/23 - Sapheno-femoral junctions are bilaterally incompetent . Segmental valvular incompetence is noted within the great saphenous veins bilaterally. The right small saphenous vein is patent and incompetent. The accessory saphenous vein at the right knee is incompetent. Two accessory saphenous veins in the left mid-thigh are incompetent. An accessory saphenous vein at the left knee is incompetent. An incompetent nuclear medicine medical director vein is noted in the right calf, located 5 centimeters proximal to the right medial malleolus. Pulsatile flow is noted in the deep venous system bilaterally, which may be indicative of elevated central venous pressure (i.e. congestive heart failure, pulmonary hypertension, etc.). Clinical correlation is advised. Arterial studies obtained 08/13/23 - Biphasic and triphasic Doppler waveforms are noted at ankle level on the right. Triphasic Doppler waveforms are noted at ankle level on the left. Pulse-volume recordings appear diminished at digital level on the left, but satisfactory at all other levels bilaterally. Resting ankle-brachial indices are normal bilaterally. The right digital-brachial index is mildly diminished. The left digital-brachial index is low-normal. Arterial flow appears normal at ankle level bilaterally. 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 Right JEFFREY - 1.00, left JEFFREY - 1.18. Wound care - Tiffani We have received medical approval for placement of advanced skin substitute grafts such as Thera-Skin. Patient states she cannot afford the copay at this time. A wound culture was obtained on 11/01/23. It was positive for Staphylococcus aureus. We started her on Augmentin and has finished them. Prealbumin was 12.5 on 04/20/23.? Continue nutritional supplementation with protein to help the healing process. Patient has diabetes mellitus. Her HgbA1c on 09/03/23 was 7.0. For elective surgeries, the HgbA1c needs to be less than 8. She has started wearing her compression pumps. She has noticed a decrease in the swelling. She states her miroslava-ulcer redness has resolved with the anti-fungal powder. She has been scratching her lower legs over the weekend. There is some redness present. Today she denies fever. Her appetite is ok. Progress of Wound: Continues to improve. Miroslava wound is very dry. Will have her stop the fungal powder. Objective Data Objective Data Vital Signs: Vital Signs Temp Pulse Resp BP O2 Del Method 97.1 F L 66 16 165/64 H Room Air 01/10/24 13:31 01/10/24 13:31 01/10/24 13:31 01/10/24 13:31 01/10/24 13:31 Oxygen Delivery Method Room Air Weight: 307 lb Body Mass Index (BMI) 46.6 Charges/Coding Procedures Integumentary 111xxx-113xx: 16482 Zita subq tissue 20 sq cm/< (ICD-10 - L97.922, S80.12xA, E11.9, D63.8, Z79.01, E66.9, I89.0, L03.116, R21) Debridement Note Debridement Note Wound debrided: #4 Left medial leg. Laterality: Left Wound Grade/Stage: 2. Type of Debridement: Excisional debridement Anesthesia Used: 5% Lidocaine Gel Depth: Down to and including healthy tissue and in the subcutaneous layer Percentage of wound debrided: 100 Instrument Used: 5mm curette Tissue Removed: subcutaneous tissue. Severity: Fat Layer Exposed Amount of bleeding with debridement: Mild Bleeding Controlled with: Pressure and Compression and gauze Patient tolerated procedure: Patient tolerated procedure well (Inferior to the ulcer near the ankle is an area of redness and cellulitis. Not circumferential.) Post-Debridement Measurements and Additional Note: Post-Debridement Measurements/Treatment WC - Nurse 1 - General Ulcer Assessment Start: 12/29/23 13:04 Freq: Status: Active Protocol: WC.LOWEXT Activity Type Activity Date Activity User E-sign Co-sign Detail Recorded Client Recorded Date Recorded By Document 12/29/23 13:04 BMF Desktop 12/29/23 13:13 BMF Document 01/03/24 13:06 KW Desktop 01/03/24 13:11 KW Document 01/10/24 13:31 BM Desktop 01/10/24 13:35 BMF 12/29/23 01/03/24 01/10/24 13:04 13:06 13:31 WC - Today's Visit Information Type of service Follow-up Visit Follow-up Visit Follow-up Visit (Physician/ROVING COURT REPORTER (Physician/[facility]OVING COURT REPORTER (Physician/ROVING COURT REPORTER ) ) ) Arrival Mode Ambulatory, Ambulatory, Ambulatory, Walker Walker Walker Transfer Assistance None None Patient Identification Verified (Name & Yes Yes Yes ) Patient Requires Transmission-Based No No Precautions Height and Weight Body Mass Index (BMI) 46.6 46.6 46.6 BMI Classification Obese Obese Obese Vital Signs Temperature (97.8 F-99.1 F) 97.5 F L 96.9 F L 97.1 F L Temperature Source Temporal Temporal Temporal Pulse Rate (60-100) 65 67 66 Pulse Location Monitor Monitor Monitor Respiratory Rate (12-18) 18 67 H 16 Respiratory rate source Observation Observation Observation Oxygen Delivery Method Room Air Room Air Room Air Blood Pressure (90/60-120/80) 149/52 H 170/57 H 165/64 H Blood Pressure Mean (mm Hg) 84 94 97 Source Monitor Monitor Monitor Position Sitting Semi-Fowlers Sitting Blood Pressure Location Left Arm Left Arm Left Arm History Since Last Visit- (Skip if this is Patient's initial visit) Have you changed medications since your No No No last visit? Any new allergies or adverse reactions No No No Had a fall/change in ADL's that may No No No increase risk of falls Signs or symptoms of abuse and/or No No No neglect since last visit Have you been in the hospital since your No No No last visit? Has dressing in place as prescribed Yes Yes Yes Has compression in place as prescribed Yes Yes Yes Has offloadiing in place as prescribed N/A N/A N/A Experienced any changes in pain level or No No No management Left Footwear Regular Shoe Regular Shoe Regular Shoe Right Footwear Regular Shoe Regular Shoe Regular Shoe Pain Scale: 0-10 Numeric Is Patient Pain Free? Yes Yes Yes WC - Nurse 1 - General Ulcer Measurement Start: 12/29/23 13:04 Freq: Status: Active Protocol: Activity Type Activity Date Activity User E-sign Co-sign Detail Recorded Client Recorded Date Recorded By Document 12/29/23 13:04 BMF Desktop 12/29/23 13:13 BMF Document 01/03/24 13:06 KW Desktop 01/03/24 13:11 KW Document 01/10/24 13:31 BM Desktop 01/10/24 13:35 BMF 12/29/23 01/03/24 01/10/24 13:04 13:06 13:31 Wound Center Nurse 1 4-left medial leg -Combined with other wound No No -Current Size (cm) - Length 3.1 2.5 3.8 -Current Size (cm) - Width 4.1 3.4 2.2 -Current Size (cm) - Depth 0.1 0.1 0.1 -Total Square Cm 12.71 8.50 8.36 -Date of Last Picture (Recall this 12/29/23 01/10/24 field) -Photo Taken Yes Yes -Epithelialization Small 1-33% Small 1-33% -Tunneling No No -Undermining/Tunneling No No -Circular Undermining No No -Exudate Amt Medium Small Medium -Exudate Type Serosanguineous Serosanguineous Serosanguineous -Wound Margin Flat & Intact Distinct, Distinct, Outline Outline Attached Attached -Granulation Amt Large (67-100%) Large (67-100%) Large (67-100%) -Granulation Quality Red Red Pale,Red -Slough/Fibrin Yes Yes -Necrosis Amt Small (1-33%) Small (1-33%) -Necrotic Tissue Type Adherent Slough Adherent Slough -Texture (Miroslava-wound Skin Appearance) Assessed, Assessed Assessed, Scarring Scarring -Moisture (Miroslava-wound Skin Appearance) Assessed,Dry/ Assessed Assessed,Dry/ Scaly Scaly -Color (Miroslava-wound Skin Appearance) Assessed Assessed Assessed -Temperature (Miroslava-wound Skin No Abnormality No Abnormality No Abnormality Appearance) (Pt Warm) (Pt Warm) (Pt Warm) -Tenderness on Palpation (Miroslava-wound No No No Skin Appearance) -Ulcer Cleansing Soap and Water Soap and Water Rinsed/ Irrigated with Saline -Foul Odor after Cleansing No No No -Anesthetic Used 4% Lidocaine 4% Lidocaine 5% Lidocaine Solution Solution Gel Lower Limb Edema Present Yes Yes Left Calf (cm) 46.5 54.4 45.5 Left Ankle (cm) 31.6 31.6 29.5 WC - Nurse 2 - General Ulcer CM Notes Start: 12/29/23 13:04 Freq: Status: Active Protocol: Activity Type Activity Date Activity User E-sign Co-sign Detail Recorded Client Recorded Date Recorded By Document 12/29/23 13:39 MW Desktop 12/29/23 13:43 MW Document 01/03/24 13:42 JF Laptop 01/03/24 13:44 JF Document 01/10/24 13:48 JF Laptop 01/10/24 13:50 JF 12/29/23 01/03/24 01/10/24 13:39 13:42 13:48 Wound Center Nurse 2 4-left medial leg -Time 13:39 13:42 13:49 -Correct Patient Yes Yes Yes -Correct Side, Site, Position Yes Yes Yes -Correct Procedure Yes Yes Yes -Procedure Performed Yes Yes Yes -Type of Procedure Debridement Debridement Debridement -Clinical Debridement Subcutaneous Subcutaneous Subcutaneous -Tissue Removed Subcutaneous Subcutaneous Subcutaneous -Post Debridement (cm) - Length 4.5 2.0 1.8 -Post Debridement (cm) - Width 2.3 3.5 3.8 -Post Debridement (cm) - Depth 0.1 0.1 0.1 -Total Square (Post) (cm) 10.35 7.00 6.84 -Area of Debridement (cm) - Length 4.5 2.0 1.8 -Area of Debridement (cm) - Width 2.3 3.5 3.8 -Total Square (Area) (cm) 10.35 7.00 6.84 -Tunneling No No No -Undermining/Tunneling No No No -Circular Undermining No No No -Wound/Ulcer Outcome Not Healed Not Healed Not Healed -Ulcer Cleansing Rinsed/ Rinsed/ Rinsed/ Irrigated with Irrigated with Irrigated with Saline Saline Saline -Foul Odor after Cleansing No No No -Bioengineered Tissue No No No -Bleeding Controlled with Pressure Pressure Pressure -Treatment Response Procedure Procedure Procedure Tolerated Well Tolerated Well Tolerated Well -Offloading No No No -Debridement - Subq, 1st 20sq cm Yes Yes Yes Pain Scale: 0-10 Numeric Is Patient Pain Free? Yes Yes Yes - Nurse 3 - General Ulcer D/C NN Start: 12/29/23 13:04 Freq: Status: Active Protocol: Activity Type Activity Date Activity User E-sign Co-sign Detail Recorded Client Recorded Date Recorded By Document 12/29/23 13:50 DL Desktop 12/29/23 13:51 DL Document 01/03/24 13:51 BMF Desktop 01/03/24 13:52 BMF Document 01/10/24 13:55 KW Desktop 01/10/24 13:56 KW 12/29/23 01/03/24 01/10/24 13:50 13:51 13:55 Wound Care Center Nurse 3 4-left medial leg -Ulcer Cleansing Rinsed/ Rinsed/ Irrigated with Irrigated with Saline Saline -Foul Odor after Cleansing No No -Primary Dressing Applied Promogran Promogran Promogran Tiffani Matter Tiffani Matter Tiffani Matter -Other Dressing abd pad -Primary Dressing Covered/Secured with Dry Gauze & Dry Gauze Roll Gauze, Secured with Tape -Other Covering ABD drsg per dl dining room tables set up attendant -Promogran Tiffani Matter 1 1 1 Left -Lotion applied to leg before Yes compression wrap -Compression Wrap Mc Wrap Mc Wrap Mc Wrap -Other applied per dl dining room tables set up attendant Treatment Response Procedure Procedure Tolerated Well Tolerated Well Pain Scale: 0-10 Numeric Is Patient Pain Free? Yes Yes Yes - Visit Discharge Discharge Condition Stable Stable Ambulatory Status Ambulatory Ambulatory, Walker Transportation Private Auto Private Auto Medication Reconcilliation completed & No provided to patient/care provider Clinical Summary of Care Provided Yes Assessment/Plan Assessment/Plan (1) Ulcer of left lower extremity with fat layer exposed: CODE(S): L97.922 - Non-pressure chronic ulcer of unspecified part of left lower leg with fat layer exposed (2) Hematoma of left lower leg: CODE(S): S80.12XA - Contusion of left lower leg, initial encounter (3) DM type 2, goal HbA1c < 7%: CODE(S): E11.9 - Type 2 diabetes mellitus without complications (4) Anemia of chronic disease: CODE(S): D63.8 - Anemia in other chronic diseases classified elsewhere (5) Anticoagulant long-term use: CODE(S): Z79.01 - FDC (current) use of anticoagulants (6) On rivaroxaban therapy: CODE(S): Z79.01 - FDC (current) use of anticoagulants (7) Obesity: CODE(S): E66.9 - Obesity, unspecified (8) Lymphedema of both lower extremities: CODE(S): I89.0 - Lymphedema, not elsewhere classified (9) Cellulitis of left leg: CODE(S): L03.116 - Cellulitis of left lower limb (10) Rash of periwound skin: CODE(S): R21 - Rash and other nonspecific skin eruption PLAN: resolved. PLAN: Plan Continue Tiffani dressing changes covered with ABD daily. The miroslava-ulcer is now very dry, stop anti fungal powder. Compression - Tubigrip and mc wrap. A wound culture was obtained on 11/01/23. It was positive for Staphylococcus aureus. We started her on Augmentin. She has finished them. She has been using her compression daily and has noticed a difference. Lymphedema is slowly improving. Stressed importance keeping legs elevated when sitting. Encouraged to sleep in a bed laying flat. Prealbumin was 12.5 on 04/20/23. Continue nutritional supplementation with protein to help the healing process. Patient is obese and has moderate swelling that can be problematic as it will slow down healing. Patient has acute on chronic anemia. Hgb was 6.7 at admission on 09/01/23. Hgb was 7.3 at discharge on 09/06/23. Had PRBC while hospitalized. Repeat Hgb on 09/22/23 was 7.6. She was placed on Iron Supplementation. Patient has diabetes mellitus. Her HgbA1c on 09/03/23 was 7.0. For elective surgeries, the HgbA1c needs to be less than 8. The ulcer shows good granulation tissue and is ready for advanced skin substitute grafts such as Thera-Skin. These skin substitute grafts are applied at the wound center. We have received medical approval for the advanced skin substitute grafts. We can apply the grafts 10 times over a 12 week period. However, patient states she cannot afford the deductible at this time. When she had the skin substitute grafts applied to her right knee ulcer last year, it was later in the year and her deductible had already been met for that year. So we will continue the Tiffani dressing changes daily. She would really benefit from compression pumps due to the severity of her edema/lymphedema, even with her wearing consistent compression. Insurance finally approved the pumps and she has received them and has started using them. Less swelling is noted today. Followup one week. Cellulitis has cleared. Follow up with Dr. Bentley in one week.
== END 2024-01-25 23:59 | disposition home or self-care (01) ==
LOC: WC 13:30
PROVIDERS: Referring Provider Surgery; Visit Provider Surgery
DX: L97.922 Non-pressure chronic ulcer of unspecified part of left lower leg with fat layer exposed (principal); E11.9 Type 2 diabetes mellitus without complications; S80.12XA Contusion of left lower leg, initial encounter; D63.8 Anemia in other chronic diseases classified elsewhere; Z79.01 Long term (current) use of anticoagulants; E66.9 Obesity, unspecified; I89.0 Lymphedema, not elsewhere classified; R21 Rash and other nonspecific skin eruption; L03.116 Cellulitis of left lower limb
CPT/HCPCS: 11042

== ENCOUNTER 2024-01-20 14:39 | Emergency (ER) | payer MEDICARE, SELFPAY ==
[2024-01-20] VITALS (7 sets, daily range): BP systolic 126–183; BP diastolic 65–104; PULSE 62–77; RESP 11–21; TEMP 36.1–37; O2SAT 95–100; BMI 44.1
[2024-01-20] MEDS: Ondansetron 4 MG/2 ML Vial IV (14:48)
[2024-01-20] MEDS: morphine 8 MG/ML Syringe 6 MG IV ×2 (14:48→15:24)
--- NOTE | 2024-01-20 14:50 | RAD_ITS ---
STUDY: X-RAY - LEFT ANKLE REASON FOR EXAM: Female, 73 years old. Open fracture and dislocation TECHNIQUE: 2 view(s) of the ankle. COMPARISON: None. FINDINGS: There is evidence of chondral fracture of the distal tibia with medial displacement of the distal portion of the tibia in the foot. Overlying soft tissue laceration. RAD/Ankle min 3 Views IMPRESSION: Comminuted fracture-dislocation of the distal tibia with displacement of the foot medially. Electronically Signed: Ian Buchanan MD at 15:25 EDT ,
--- NOTE | 2024-01-20 14:50 | RAD_ITS ---
STUDY: X-RAY - PELVIS AND LEFT HIP REASON FOR EXAM: Female, 73 years old. Left hip pain TECHNIQUE: 1 views of the pelvis and hip. COMPARISON: Comparison is made with prior study dated September 01, 2023. FINDINGS: There is a non-specific bowel gas pattern. There are atherosclerotic vascular calcifications of the pelvic arteries. There is narrowing with cortical sclerosis and osteophyte formation of the sacroiliac joint consistent with degenerative osteoarthritic changes. Normal bilateral superior and inferior pubic rami. There are degenerative changes of the pubic symphysis with articular narrowing and sclerosis. Normal bilateral ischial tuberosities. The patient is status post left total hip replacement. There is good alignment. RAD/Hip 1 view with Pelvis IMPRESSION: Status post left total hip replacement. There is good alignment. Electronically Signed: Ian Buchanan MD at 15:19 EDT ,
--- NOTE | 2024-01-20 15:00 | RAD_ITS ---
STUDY: X-RAY - LEFT ANKLE REASON FOR EXAM: Female, 73 years old. Post reduction TECHNIQUE: 2 view(s) of the ankle were obtained following reduction.. COMPARISON: None. FINDINGS: Satisfactory reduction of the ankle joint. Transverse fracture of the distal fibula. RAD/Ankle min 3 Views IMPRESSION: Satisfactory reduction of the distal fibular fracture and ankle joint. Electronically Signed: Ian Buchanan MD at 15:27 EDT ,
--- NOTE | 2024-01-20 15:01 | ED.VIS.FALL ---
HPI HPI - Fall History of Present Illness Chief Complaint: Trauma Informant: patient and EMS Occured/Mechanism Occurred: Today Mechanism/Context: Yes same level fall Pain/Injury Pain Location: lower extremity Quality of Pain: Sharp and Stabbing Current Severity: Severe Maximum Severity: Severe Associated Symptoms Associated Symptoms: Positive for Parasthesias, Loss of function and Inability to ambulate; Negative for Loss of consciousness or Amnesia Narrative Narrative: 73-year-old female history of A-fib on Xarelto and Plavix also history of diabetes. Went to get out of her chair today and pushed herself back when she heard a snap in her ankle and was having immediate left ankle pain. She was brought in by squad. There was significant bleeding due to an open fracture dislocation of her left ankle so the squad was placed tourniquets. They also gave her fentanyl for pain. Tetanus Immunization: Unknown Prior similar symptoms: No Recent Illness/Hospitalization: No PFSH PFSH Medical History Anemia Anemia of chronic disease Anticoagulant long-term use Anxiety and depression Arthritis Atrial fibrillation CAD (coronary artery disease) Cellulitis of left leg CPAP (continuous positive airway pressure) dependence Diabetes mellitus DM type 2, goal HbA1c < 7% DVT (deep venous thrombosis) Failure of outpatient treatment Hematoma of right knee region History of stress incontinence Hx of necrotizing fasciitis Hypertension Hypothyroidism Insulin dependent diabetes mellitus Leg swelling Open wound of knee Open wound of right knee with complication PAF (paroxysmal atrial fibrillation) Rash of periwound skin Restless legs Stage 3b chronic kidney disease (CKD) Traumatic hematoma of right knee Ulcer of left lower extremity with muscle involvement without evidence of necrosis Ulcer of right knee Wears dentures Home Medications atorvastatin 40 mg tablet 40 mg PO QHS Cholesterol 09/07/14 [History Last Taken 04/06/23] fenofibric acid (choline) 135 mg capsule,delayed release (Trilipix) 135 mg PO DAILY Cholesterol 09/07/14 [History Last Taken 04/06/23] levothyroxine 175 mcg tablet 200 mcg PO DAILY Thyroid 04/12/20 [History Last Taken 04/06/23] bumetanide 0.5 mg tablet 0.5 mg PO DAILY BP 02/17/21 [History Last Taken 04/06/23] insulin glargine U-300 conc 300 unit/mL (1.5 mL) subcutaneous pen (Toujeo SoloStar U-300 Insulin) 25 unit subcut QHS Diabetes 02/17/21 [History Last Taken 04/06/23] insulin lispro 100 unit/mL subcutaneous solution (Humalog U-100 Insulin) 18 unit subcut BREAKFAST Diabetes 02/17/21 [History Last Taken 04/06/23] acetaminophen 500 mg tablet 1,000 mg (2 x 500 mg) PO Q6H PRN PRN Pain Score 1-5 #0 tabs 05/14/21 [Rx Last Taken 04/06/23] insulin lispro 100 unit/mL subcutaneous pen 25 unit subcut LUNCH diabetes 05/30/21 [History Last Taken 04/06/23] amiodarone 200 mg tablet 100 mg PO DAILY hrt 11/12/21 [History Last Taken 04/06/23] lisinopril 10 mg tablet 20 mg PO DAILY bp 04/11/23 [History Last Taken Unknown] prednisolone acetate 1 % eye drops,suspension 1 drp ophthalmic (eye) BID eye 04/11/23 [History Last Taken Unknown] ferrous sulfate 325 mg (65 mg iron) tablet (FeroSul) 325 mg PO DAILY@1200 #30 tabs 04/21/23 [Rx Last Taken Unknown] clopidogrel 75 mg tablet 75 mg PO DAILY 09/01/23 [History Last Taken Unknown] rivaroxaban 15 mg tablet (Xarelto) 15 mg PO DAILY #90 tabs 09/07/23 [Rx Last Taken Unknown] fluconazole 200 mg tablet (Diflucan) 200 mg PO DAILY #7 tabs 11/16/23 [Rx Last Taken Unknown] nystatin 100,000 unit/gram topical powder 1 applic topical DAILY #60 grams 12/29/23 [Rx Last Taken Unknown] doxycycline hyclate 100 mg capsule 100 mg PO BID #20 caps 01/03/24 [Rx Last Taken Unknown] Allergy/AdvReac Type Severity Reaction Status Date / Time hydralazine HCl Allergy Other Verified 10/13/23 13:16 [From Apresoline] ondansetron [From Zofran] AdvReac Nausea Verified 10/13/23 13:16 Family History Mother Diabetes Heart disease Hypertension Father Diabetes Heart disease Hypertension Surgical History History of cardiac catheterization History of cardiac radiofrequency ablation History of hip replacement History of quadruple bypass History of total left hip replacement Hx of CABG Hx of cholecystectomy Hx of colonoscopy Hx of tubal ligation Stented coronary artery Social History household members: none housing: house number of children: 3 Smoking Status: Former smoker alcohol intake: never substance use type: does not use ROS ROS ED ROS Narrative Patient denies recent illness. Review of Systems ROS Unobtainable: Denies due to encephalopathy Constitutional Constitutional ED: Denies chills or fever(s) Eyes Eyes: Denies blurry vision ENT ENT ED: Denies ear pain, rhinorrhea or sore throat Cardiovascular Cardiovascular: Denies chest pain Respiratory/Chest Respiratory/Chest: Denies cough or dyspnea Genitourinary Genitourinary ED: Denies dysuria Musculoskeletal Musculoskeletal: Denies arthralgias Integumentary Denies abscess Neurologic Neurologic: Denies headache(s) Psychiatric Psychiatric: Denies anxiety Endocrine Endocrinology: Denies polydipsia Hematologic/Lymphatic Hematologic/Lymphatic: Denies easy bleeding Allergic/Immunologic Allergic/Immunologic ED: Denies mouth swelling, tongue swelling or urticaria EXAM Physical Exam Narrative Exam Narrative: 73-year-old female vital signs stable afebrile. Pulse 77. Pulse ox 100% room air. She is awake alert. Brought in by squad. H EENT exam pupils round react to light. No facial droop. No trauma to her face or head. Neck nontender. Trachea midline. Lungs clear to auscultation bilaterally. Heart regular rate about 80 no murmur. Chest wall and ribs nontender. Abdomen soft nontender. Moving all 4 extremities. She has an open fracture dislocation of her left ankle. A large laceration in the anterior aspect of the ankle. Moderate amount of venous blood loss is dark blood. Currently there is no pulsatile bleeding. Currently she has no sensation in her foot. It is dusky and swollen. She complains of tenderness to her left hip but it does not look dislocated. There is no gross bony deformity. I am unable to palpate any DP pulse to the foot. Patient is awake and alert. Answering questions and following commands. Const Vital Signs: 01/20/24 14:40 01/20/24 15:07 Temperature 96.9 F L Temperature Source Temporal Pulse Rate 77 Respiratory Rate 14 Respiratory Effort Normal Respiratory Depth Normal Respiratory Pattern Normal Blood Pressure 179/99 H Blood Pressure Mean 125 Pulse Ox 100 Oxygen Delivery Method Room Air Room Air Positive well nourished and well developed; Negative for cachectic, contractures or unkempt General Appearance ED: well developed; Negative for unkempt, cachectic, contractures or NAD Nutritional Appearance: Negative for cachectic HEENT Reports normocephalic atraumatic; Negative for trauma, contusion, hematoma or tenderness Eyes PERRL and EOMs intact bilaterally Neck full ROM, no lymphadenopathy and supple General: Negative for tenderness Chest Wall inspection of chest normal and palpation of chest normal Resp normal respiratory effort, no retractions and clear to auscultation bilaterally Effort and Inspection: Negative for pain with movement Auscultation: Negative for rales, rhonchi, wheezes or diminished lung sounds Cardio regular rate, S1 normal heart sound, S2 normal heart sound and no murmurs Rate: Negative for bradycardia GI non-tender, non-distended and no masses Inspection: Negative for abdominal distention Auscultation: normoactive bowel sounds Palpation: soft; Negative for guarding or rebound tenderness present Neuro oriented x3, CN's II-XII intact bilaterally, moves all extremities, no focal motor deficits and No no sensory deficits noted Neuro Narrative: Loss of sensation left foot. No palpable DP pulse left foot. [place] Coma Scale: document GCS findings Spontaneous Obeys Commands Oriented 15 Sensorium / Orientation: alert, oriented to person, oriented to place and oriented to time; Negative for orientation impaired, confused, lethargic or stuporous Motor Exam: strength 5/5 throughout Psych mental status grossly normal and thought process normal Appearance: Negative for unkempt Attitude: No agitated Mood & Affect: Negative for depressed, anxious or tearful Skin Skin Narrative: Large open fracture dislocation laceration across the anterior medial and lateral aspect of the left ankle joint. Venous bleeding. Lesions: no lesions Rashes: no rashes MDM MDM MDM Narrative Medical decision making narrative: 73-year-old female has an open fracture dislocation of the left ankle. She was treated with morphine and Zofran. She had not eaten all day. She was given propofol a total of 60 mg and was able to reduce the fracture dislocation. She was placed in a well-padded posterior splint. The open wound was also covered with a dressing by nursing. Postreduction she can wiggle her toes she does not have sensation again I do not palpate a DP pulse. The tourniquets were taken down that the squad applied. Bleeding is currently controlled. Patient to go to [facility] transfer center. They are coming by helicopter because he could not get a ground squad for over an hour and a half. Patient's tetanus has been updated. She has been given a gram of Ancef. She received 6 of morphine and a second dose of morphine. Also Zofran. History & Record Review Discussion w/independent historian: Patient and Family Lab Data Attestation: I reviewed the patient's lab results. Labs: Laboratory Results - last 24 hr 01/20/24 14:30 WBC 3.8 L RBC 3.72 L Hgb 9.8 L Hct 32.8 L MCV 88.2 MCH 26.3 L MCHC 29.9 L RDW Std Deviation 51.8 H RDW Coeff of Kevyn 16.0 H Plt Count 259 MPV 10.6 Immature Gran % (Auto) 0.500 Neut % (Auto) 57.3 Lymph % (Auto) 22.0 [place] % (Auto) 10.8 H Eos % (Auto) 7.6 H Baso % (Auto) 1.8 H Absolute Neuts (auto) 2.2 Absolute Lymphs (auto) 0.84 Nucleated RBC % 0 PT 15.2 H INR 1.2 APTT 27.5 Sodium 137 Potassium 4.4 Chloride 106 Carbon Dioxide 21.0 Anion Gap 10 BUN 33 H Creatinine 1.43 H Estim Creat Clear Calc 48.70 Est GFR (MDRD) Af Amer 46 L Est GFR (MDRD) Non-Af 38 L BUN/Creatinine Ratio 23.1 H Glucose 202 H Calcium 9.2 Radiography Diagnostic Testing: Clinical Impression(s) from Imaging Studies Ankle X-Ray 01/20/24 14:50 IMPRESSION: Comminuted fracture-dislocation of the distal tibia with displacement of the foot medially. Electronically Signed: Ian Buchanan MD at 15:25 EDT , Hip/Pelvis X-Ray 01/20/24 14:50 IMPRESSION: Status post left total hip replacement. There is good alignment. Electronically Signed: Ian Buchanan MD at 15:19 EDT , Ankle X-Ray 01/20/24 15:00 IMPRESSION: Satisfactory reduction of the distal fibular fracture and ankle joint. Electronically Signed: Ian Buchanan MD at 15:27 EDT , Left ankle x-ray 2 views shows a comminuted fracture dislocation of the left ankle 100% displaced. Interpreted both by myself and the radiologist. Left ankle x-ray #2, 2 views also interpreted both by myself and the radiologist shows good reduction. Along with a distal fibular fracture. Procedures Lower Extremity Splints Lower Extremity Splint: Orthoglass Splint Fabrication: Fabricated Location: Left Procedural Sedation 1 (Initial Baseline): Consent Signed: Yes Any Problems With Anesthesia: No You/Your family experience fever (hyperthermia) w/anesthesia: No Sedation medication: Propofol Dose: 60 Route: IV Maliampati Score: Class II ASA Classification: I Comment:: Propofol IV 60 mg. Left ankle open fracture dislocation was reduced. She was placed in a well-padded posterior splint. Pre and post reduction I cannot palpate a DP pulse. She can wiggle her toes. She has no sensation at this time. Concern for both vascular and proximal neurologic injury. Critical Care Time Critical Care Time: Yes Critical care time (excluding procedures): 30-74 minutes, Including time spent:, Discussing w/Patient &/or Family/[employer] Winder [employer], Discussing w/Consultants, Arranging Admission or Transfer, Performing Direct Patient Care at Bedside and - (32 minutes.) Discharge Plan Triage Chief Complaint: Trauma ED Provider: Albert Armendariz Dx/Rx/DC Orders Clinical Impression: Open fracture dislocation of left ankle, Vascular injury, Chronic anticoagulation, History of atrial fibrillation, History of diabetes mellitus Prescriptions: No Action atorvastatin 40 MG tablet 40 mg PO QHS Patient Comments: CHOLESTEROL LOWERING fenofibric acid (choline) [Trilipix] 135 MG capsule,delayed release(DR/EC) 135 mg PO DAILY Patient Comments: cholesterol levothyroxine 175 MCG tablet 200 mcg PO DAILY bumetanide 0.5 mg Tablet 0.5 mg PO DAILY insulin lispro [Humalog U-100 Insulin] 100 unit/mL Solution 18 unit SUBCUT BREAKFAST Toujord[employer] SoloStar U-300 Insulin 300 unit/mL (1.5 mL) Insulin Pen 25 unit SUBCUT QHS acetaminophen 500 mg Tablet 1,000 mg PO Q6H PRN PRN (Reason: Pain Score 1-5) Qty: 0 0RF insulin lispro 100 unit/mL Insulin Pen 25 unit SUBCUT LUNCH amiodarone 200 mg tablet 100 mg PO DAILY Patient Comments: TAKE 1 TABLET DAILY fluconazole [Diflucan] 200 mg tablet 200 mg PO DAILY Qty: 7 0RF lisinopril 10 mg tablet 20 mg PO DAILY Patient Comments: TAKE 1 TABLET DAILY prednisolone acetate 1 % drops,suspension 1 drp ophthalmic (eye) BID Patient Comments: Instill 1 drop in right eye(s) twice daily ferrous sulfate [FeroSul] 325 mg (65 mg iron) Tablet 325 mg PO DAILY@1200 Qty: 30 2RF clopidogrel 75 mg tablet 75 mg PO DAILY Patient Comments: TAKE 1 TABLET BY MOUTH EVERY DAY Xarelto 15 mg tablet 15 mg PO DAILY Qty: 90 0RF Rx Instructions: must administer with evening meal nystatin 100,000 unit/gram powder 1 applic topical DAILY Qty: 60 0RF doxycycline hyclate 100 mg capsule 100 mg PO BID Qty: 20 0RF Primary Care Provider: Maggi Chicas Referrals: Maggi Chicas, [Primary Care Provider] - Disposition Disposition: Acute Care Hospital
[2024-01-20 15:05] LABS: Absolute Lymphocyte Count 0.84 X10^3/uL (0.83-4.51); Absolute Neutrophil Count 2.2 X10^3/uL (2.0-7.7); Basophil# 0.07 X10^3/uL; Basophil% 1.8 % (0-1); Eosinophil# 0.29 X10^3/uL; Eosinophils% 7.6 % (0-5); Hematocrit 32.8 % (37-47); Hemoglobin 9.8 g/dL (12.0-15.0); Lymphocyte # 0.84 X10^3/ul (0.83-4.51); Mean Corp Hgb Conc 29.9 g/dL (32-36); Mean Corpuscular Hgb 26.3 pg (27.0-32.0); Mean Corpuscular Volume 88.2 fL (81-99); Mean Platelet Vol. 10.6 fl (6.2-12.0); Monocyte# 0.41 X10^3/uL; Monocyte% 10.8 % (0-10); NRBC Flagged by Analyzer 0 % (0-5); Neutrophil # 2.18 X10^3/uL (2.7-7.7); Neutrophil % 57.3 % (47-70); Platelet Count 259 K/mm3 (150-450); RBC Distribution Width SD 51.8 fl (35.1-43.9); Red Blood Count 3.72 M/mm3 (4.2-5.4); White Blood Count 3.8 K/mm3 (4.4-11.0)
[2024-01-20 15:08] LABS: Partial Thromboplast Time 27.5 Seconds (24.1-36.2)
[2024-01-20] MEDS: Diphth,Pertuss(Acell),Tet Vac 0.5 ML Vial IM (15:11)
[2024-01-20 15:12] LABS: Anion Gap 10 (5-15); BUN 33 mg/dL (7-18); BUN/Creat Ratio 23.1 RATIO (10-20); Calcium,Total 9.2 mg/dL (8.5-10.1); Chloride 106 mmol/L (98-107); Creatinine, Serum 1.43 mg/dL (0.55-1.02); EST Glomerular Filtration Rate 38 mL/min (>60); Est Glom Filt Rate - Afr Amer 46 mL/min (>60); Glucose 202 mg/dL (74-106); Potassium 4.4 mmol/L (3.5-5.1); Sodium Level 137 mmol/L (136-145)
--- NOTE | 2024-01-20 15:13 | NURSING ---
10 MIN ETA FOR AIR
[2024-01-20] MEDS: Cefazolin 1 GM/50 ML BAG IV (15:18)
[2024-01-20 15:23] LABS: International Normalized Ratio 1.2; Prothrombin Time (Protime)PT. 15.2 SECONDS (11.7-14.9)
--- NOTE | 2024-01-20 15:55 | ED.RN ---
Report given to Petra CANAS @ [facility]
== END 2024-01-20 15:39 | disposition short-term general hospital (02) ==
PROVIDERS: Emergency Provider Emergency Medicine; Visit Provider Emergency Medicine
DX: S82.892B Other fracture of left lower leg, initial encounter for open fracture type I or II (principal); I48.0 Paroxysmal atrial fibrillation; E11.22 Type 2 diabetes mellitus with diabetic chronic kidney disease; Z79.4 Long term (current) use of insulin; N18.32 Chronic kidney disease, stage 3b; Z87.891 Personal history of nicotine dependence; Z79.01 Long term (current) use of anticoagulants; Z79.02 Long term (current) use of antithrombotics/antiplatelets; X58.XXXA Exposure to other specified factors, initial encounter; I25.10 Atherosclerotic heart disease of native coronary artery without angina pectoris; I12.9 Hypertensive chronic kidney disease with stage 1 through stage 4 chronic kidney disease, or unspecified chronic kidney disease; Z79.899 Other long term (current) drug therapy; Z96.642 Presence of left artificial hip joint; Z95.1 Presence of aortocoronary bypass graft; Z90.49 Acquired absence of other specified parts of digestive tract; Z98.51 Tubal ligation status; Z95.5 Presence of coronary angioplasty implant and graft; Z23 Encounter for immunization
CPT/HCPCS: 27846; 73501; 73610; 80048; 85025; 85610; 85730; 90715; 96365; 96375; 96376; 99285; J7030; A4216; J2405

== ENCOUNTER 2025-05-18 10:12 | Emergency (ER) | payer MEDICARE, SELFPAY ==
[2025-05-18 10:13] VITALS: BP 180/95; PULSE 84; RESP 18; TEMP 36.7; O2SAT 99
--- NOTE | 2025-05-18 10:15 | EDS_ITS ---
HPI History of Present Illness Chief Complaint: Lower Extremity Injury [facility] Medical History Anemia Anemia of chronic disease Anticoagulant long-term use Anxiety and depression Arthritis Atrial fibrillation CAD (coronary artery disease) Cellulitis of left leg CPAP (continuous positive airway pressure) dependence Diabetes mellitus DM type 2, goal HbA1c < 7% DVT (deep venous thrombosis) Failure of outpatient treatment Hematoma of right knee region History of stress incontinence Hx of necrotizing fasciitis Hypertension Hypothyroidism Insulin dependent diabetes mellitus Leg swelling Open wound of knee Open wound of right knee with complication PAF (paroxysmal atrial fibrillation) Rash of periwound skin Restless legs Stage 3b chronic kidney disease (CKD) Traumatic hematoma of right knee Ulcer of left lower extremity with muscle involvement without evidence of necrosis Ulcer of right knee Wears dentures Home Medications ?Medication ?Instructions ?Recorded ?Last Taken ?Type atorvastatin 40 mg tablet 40 mg PO QHS Cholesterol 09/0904/06/23 History fenofibric acid (choline) 135 mg 135 mg PO DAILY Ruchi sterol 09/07/14 04/06/23 History capsule,delayed release (Trilipix) levothyroxine 175 mcg tablet 200 mcg PO DAILY Thyroid 04/12/20 04/06/23 History bumetanide 0.5 mg tablet 0.5 mg PO DAILY BP 02/17/21 04/06/23 History insulin glargine U-300 conc 300 25 unit subcut QHS Emilie betes 02/17/21 04/06/23 History unit/mL (1.5 mL) subcutaneous pen (Toujeo SoloStar U-300 Insulin) insulin lispro 100 unit/mL 18 unit subcut BREAKFAST Di abetes 02/17/21 04/06/23 History subcutaneous solution (Humalog U-100 Insulin) acetaminophen 500 mg tablet 1,000 mg (2 x 500 mg) PO Q 6H PRN 05/14/21 04/06/23 Rx PRN Pain Score 1-5 #0 tabs insulin lispro 100 unit/mL 25 unit subcut LUNCH diabet es 05/30/21 04/06/23 History subcutaneous pen amiodarone 200 mg tablet 100 mg PO DAILY hrt 11/12/21 04/06/23 History lisinopril 10 mg tablet 20 mg PO DAILY bp 04/11/23 U nknown History prednisolone acetate 1 % eye 1 drp ophthalmic (eye) BI D eye 04/11/23 Unknown History drops,suspension ferrous sulfate 325 mg (65 mg 325 mg PO DAILY@1200 #30 tabs 04/21/23 Unknown Rx iron) tablet (FeroSul) clopidogrel 75 mg tablet 75 mg PO DAILY 09/01/23 Unkn own History rivaroxaban 15 mg tablet (Xarelto) 15 mg PO DAILY #90 tabs 09/07/23 Unknown Rx fluconazole 200 mg tablet 200 mg PO DAILY #7 tabs 10/29 Unknown Rx (Diflucan) nystatin 100,000 unit/gram topical 1 applic topical DA RADHA #60 grams 12/29/23 Unknown Rx powder doxycycline hyclate 100 mg capsule 100 mg PO BID #20 c aps 01/03/24 Unknown Rx Allergy/AdvReac Type Severity Reaction Status Date / Time hydralazine HCl (From Allergy Other Verified 05/18/25 10:13 Apresoline) ondansetron (From Zofran) AdvReac Nausea Verified 05/18/25 10:13 Family History Mother Diabetes Heart disease Hypertension Father Diabetes Heart disease Hypertension Surgical History History of cardiac catheterization History of cardiac radiofrequency ablation History of hip replacement History of quadruple bypass History of total left hip replacement Hx of CABG Hx of cholecystectomy Hx of colonoscopy Hx of tubal ligation Stented coronary artery Social History
--- NOTE | 2025-05-18 10:15 | EX.ED.DYSGE1 ---
HPI History of Present Illness Chief Complaint: Lower Extremity Injury [facility] Medical History Anemia Anemia of chronic disease Anticoagulant long-term use Anxiety and depression Arthritis Atrial fibrillation CAD (coronary artery disease) Cellulitis of left leg CPAP (continuous positive airway pressure) dependence Diabetes mellitus DM type 2, goal HbA1c < 7% DVT (deep venous thrombosis) Failure of outpatient treatment Hematoma of right knee region History of stress incontinence Hx of necrotizing fasciitis Hypertension Hypothyroidism Insulin dependent diabetes mellitus Leg swelling Open wound of knee Open wound of right knee with complication PAF (paroxysmal atrial fibrillation) Rash of periwound skin Restless legs Stage 3b chronic kidney disease (CKD) Traumatic hematoma of right knee Ulcer of left lower extremity with muscle involvement without evidence of necrosis Ulcer of right knee Wears dentures Home Medications ?Medication ?Instructions ?Recorded ?Last Taken ?Type atorvastatin 40 mg tablet 40 mg PO QHS Cholesterol 09/07/14 04/06/23 History fenofibric acid (choline) 135 mg 135 mg PO DAILY Cholesterol 09/07/14 04/06/23 History capsule,delayed release (Trilipix) levothyroxine 175 mcg tablet 200 mcg PO DAILY Thyroid 04/12/20 04/06/23 History bumetanide 0.5 mg tablet 0.5 mg PO DAILY BP 02/17/21 04/06/23 History insulin glargine U-300 conc 300 25 unit subcut QHS Diabetes 02/17/21 04/06/23 History unit/mL (1.5 mL) subcutaneous pen (Toujeo SoloStar U-300 Insulin) insulin lispro 100 unit/mL 18 unit subcut BREAKFAST Diabetes 02/17/21 04/06/23 History subcutaneous solution (Humalog U-100 Insulin) acetaminophen 500 mg tablet 1,000 mg (2 x 500 mg) PO Q6H PRN 05/14/21 04/06/23 Rx PRN Pain Score 1-5 #0 tabs insulin lispro 100 unit/mL 25 unit subcut LUNCH diabetes 05/30/21 04/06/23 History subcutaneous pen amiodarone 200 mg tablet 100 mg PO DAILY hrt 11/12/21 04/06/23 History lisinopril 10 mg tablet 20 mg PO DAILY bp 04/11/23 Unknown History prednisolone acetate 1 % eye 1 drp ophthalmic (eye) BID eye 04/11/23 Unknown History drops,suspension ferrous sulfate 325 mg (65 mg 325 mg PO DAILY@1200 #30 tabs 04/21/23 Unknown Rx iron) tablet (FeroSul) clopidogrel 75 mg tablet 75 mg PO DAILY 09/01/23 Unknown History rivaroxaban 15 mg tablet (Xarelto) 15 mg PO DAILY #90 tabs 09/07/23 Unknown Rx fluconazole 200 mg tablet 200 mg PO DAILY #7 tabs 11/16/23 Unknown Rx (Diflucan) nystatin 100,000 unit/gram topical 1 applic topical DAILY #60 grams 12/29/23 Unknown Rx powder doxycycline hyclate 100 mg capsule 100 mg PO BID #20 caps 01/03/24 Unknown Rx Allergy/AdvReac Type Severity Reaction Status Date / Time hydralazine HCl (From Allergy Other Verified 05/18/25 10:13 Apresoline) ondansetron (From Zofran) AdvReac Nausea Verified 05/18/25 10:13 Family History Mother Diabetes Heart disease Hypertension Father Diabetes Heart disease Hypertension Surgical History History of cardiac catheterization History of cardiac radiofrequency ablation History of hip replacement History of quadruple bypass History of total left hip replacement Hx of CABG Hx of cholecystectomy Hx of colonoscopy Hx of tubal ligation Stented coronary artery Social History household members: none housing: house number of children: 3 Smoking Status: Former smoker alcohol intake: never substance use type: does not use EXAM Physical Exam Const Vital Signs: 05/18/25 10:13 Temperature 98.0 F Temperature Source Oral Pulse Rate 84 Respiratory Rate 18 Blood Pressure 180/95 H Blood Pressure Mean 123 Pulse Ox 99 Oxygen Delivery Method Room Air MDM MDM MDM Narrative Medical decision making narrative: HISTORY OF PRESENT ILLNESS: Chief complaint: Left foot pain 74-year-old female history of DVT, A-fib on Xarelto, type 2 diabetes, CAD, CKD presents with left foot pain. Notes approximate 8 days ago she stubbed her left first digit. Notes this pain got better has low bit of bruising but noted yesterday she had significant pain with standing. No other injuries noted. No she is compliant with Xarelto. No missed doses. No chest pain or shortness of breath. She is concerned because she had prior surgery to the left foot and wants to make sure everything is okay. REVIEW OF SYSTEMS: Pertinent positives: Left foot pain Pertinent negatives: Numbness, tingling, loss of sensation PHYSICAL EXAM: Nursing triage notes reviewed, Vital signs reviewed Constitutional: please see [facility] Extremities: No edema, compartments are soft, no crepitus or bullae Neuro: Intact sensation L1-S1 dermatomal distributions. Intact 5/5 strength in hip flexion (T12-L3). Knee extension (L2-L4). Ankle dorsiflexion (L4-L5). Ankle plantar flexion (S1). Great toe extension (L5). 2+ patellar and Achilles DTRs. Skin: Ecchymosis noted to left first digit, no overlying erythema or cellulitic changes MEDICAL DECISION MAKING: Chief Complaint: please see [facility] External records reviewed: Reviewed prior imaging studies Factors affecting care: As per [facility] Social determinants of health: none History obtained from others: none Consults: none [facility] Narrative: The patient was initially hemodynamically stable, afebrile and nontoxic-appearing. Exam with bruising to first digit of the left foot. Otherwise some minimal TTP over the 1st and 2nd MTP. Left lower extremity is warm and well-perfused. Intact pulses. Good capillary refill. I considered the following differential diagnosis: Left foot fracture, dislocation, contusion I obtained an x-ray to further determine if the patient was suffering from a life-threatening etiology. ALL IMAGES (IF OBTAINED) HAVE BEEN PERSONALLY REVIEWED AND INTERPRETED BY MYSELF. X-ray of the left foot was read and reviewed personally myself and showed no acute fracture or dislocation The synthesis of the patient's history, physical exam, imaging studies suggest foot contusion. Will recommend Tylenol, ice and rest. Strict return precautions were discussed. The patient and/or family, caregivers express understanding. The patient and/or family, caregivers agrees with the plan. Shared decision making: I will have a discussion with the patient and or visitors regarding risk/benefits of further testing or admission. They will be made aware of of the risk/benefits inherent in this decision they will be given the opportunity to voice understanding. Total critical care time today provided was at least 0 minutes. This excludes separately billable procedures. Critical care time (if documented) is secondary to the patient having high probability of clinically significant/life threatening deterioration in the patient's condition which required my urgent intervention. Impression: 1. Acute left foot pain 2. Acute foot contusion Dispo: Discharge home This note was generated with [employer] dictation software. It may contain incorrect words, spelling, and punctuation that were not noted in review of the chart prior to signing. Radiography Chest X-Ray - ED: Read by ED Physician Diagnostic Testing: Clinical Impression(s) from Imaging Studies Foot X-Ray 05/18/25 11:00 IMPRESSION: Status post ORIF of the distal tibia and fibula as described with evidence of degenerative changes and soft tissue swelling. No acute fracture is seen. Reading Location: [id number] Discharge Plan Triage Chief Complaint: Lower Extremity Injury ED Provider: Ryan Mcnamara Dx/Rx/DC Orders Instructions: ED Contusion, Lower Extremity Prescriptions: No Action atorvastatin 40 MG tablet 40 mg PO QHS Patient Comments: CHOLESTEROL LOWERING fenofibric acid (choline) [Trilipix] 135 MG capsule,delayed release(DR/EC) 135 mg PO DAILY Patient Comments: cholesterol levothyroxine 175 MCG tablet 200 mcg PO DAILY bumetanide 0.5 mg Tablet 0.5 mg PO DAILY insulin lispro [Humalog U-100 Insulin] 100 unit/mL Solution 18 unit SUBCUT BREAKFAST Toujeo SoloStar U-300 Insulin 300 unit/mL (1.5 mL) Insulin Pen 25 unit SUBCUT QHS acetaminophen 500 mg Tablet 1,000 mg PO Q6H PRN PRN (Reason: Pain Score 1-5) Qty: 0 0RF insulin lispro 100 unit/mL Insulin Pen 25 unit SUBCUT LUNCH amiodarone 200 mg tablet 100 mg PO DAILY Patient Comments: TAKE 1 TABLET DAILY fluconazole [Diflucan] 200 mg tablet 200 mg PO DAILY Qty: 7 0RF lisinopril 10 mg tablet 20 mg PO DAILY Patient Comments: TAKE 1 TABLET DAILY prednisolone acetate 1 % drops,suspension 1 drp ophthalmic (eye) BID Patient Comments: Instill 1 drop in right eye(s) twice daily ferrous sulfate [FeroSul] 325 mg (65 mg iron) Tablet 325 mg PO DAILY@1200 Qty: 30 2RF clopidogrel 75 mg tablet 75 mg PO DAILY Patient Comments: TAKE 1 TABLET BY MOUTH EVERY DAY Xarelto 15 mg tablet 15 mg PO DAILY Qty: 90 0RF Rx Instructions: must administer with evening meal nystatin 100,000 unit/gram powder 1 applic topical DAILY Qty: 60 0RF doxycycline hyclate 100 mg capsule 100 mg PO BID Qty: 20 0RF Primary Care Provider: Maggi Chicas Referrals: Maggi Chicas, [Primary Care Provider] - Activity Restrictions/Additional Instructions: Thank you for trusting us with your care today! Please take Tylenol (2 pills, 650 mg) every 6 hours as needed for pain and fever control. Please return to the emergency department if your symptoms change or worsen. Please follow with your primary care physician for further outpatient evaluation and management. Print Language: Estonian Disposition Disposition: Home, Self Care
[2025-05-18 10:22] VITALS: BMI 48.6
--- NOTE | 2025-05-18 11:00 | RAD_ITS ---
PROCEDURE: FOOT MIN 3 VIEWS 05/18/2025 REASON FOR EXAM: LEFT FOOT History of prior ORIF of distal tibial and fibular fractures. TECHNIQUE: FOOT MIN 3 VIEWS Laterality: Left foot COMPARISON: Prior study dated January 20, 2024. FINDINGS: Bones: Diffuse demineralization of the visualized tarsals, metatarsal and phalanges. No fracture is seen. The patient is status post ORIF of the distal tibial and distal fibular fractures with screw and sideplate fixation device. Joints: Degenerative changes at the 1st metatarsophalangeal joint. Joint space narrowing and degenerative changes seen at the distal tibial talar joint. Soft tissues: Soft tissue swelling. Other: RAD/Foot min 3 Views IMPRESSION: Status post ORIF of the distal tibia and fibula as described with evidence of d egenerative changes and soft tissue swelling. No acute fracture is seen. Reading Location: [facility]
== END 2025-05-18 13:35 | disposition home or self-care (01) ==
PROVIDERS: Emergency Provider Emergency Medicine; Visit Provider Emergency Medicine
DX: S90.32XA Contusion of left foot, initial encounter (principal); E11.22 Type 2 diabetes mellitus with diabetic chronic kidney disease; N18.32 Chronic kidney disease, stage 3b; I12.9 Hypertensive chronic kidney disease with stage 1 through stage 4 chronic kidney disease, or unspecified chronic kidney disease; Z86.718 Personal history of other venous thrombosis and embolism; Z87.891 Personal history of nicotine dependence; I25.10 Atherosclerotic heart disease of native coronary artery without angina pectoris; Z79.01 Long term (current) use of anticoagulants; X58.XXXA Exposure to other specified factors, initial encounter
CPT/HCPCS: 73630; 99282